=== PATIENT | male | born 1930 | race Caucasian/White ===

== ENCOUNTER 2016-09-21 10:42 | Inpatient (IN) | payer OTHER, BC ==
[2016-09-21] VITALS (16 sets, daily range): BP systolic 83–139; BP diastolic 49–97; PULSE 65–90; TEMP 36.2–36.8; O2SAT 94–100; Ht 180.3 cm; Wt 86.0 kg
[~2016-09-21] VITALS: Ht 180.3 cm; Wt 86.0 kg
[~2016-09-21 10:42] MED LIST changes: -ATOR-24 PO; -BCTCR/30 EXT; -CETI10TA10 PO; -CETI10TA84 PO; -CLC100X PO; -DEXTSYP27 PO; -DOCU-94 PO; -ECHI400C11 PO; -FERR1TAB13 PO; -FLM4 PO; -FLUT0.15 NAE; -FRRS300 PO; -FURO-85 PO; -Fibersource 1.2 Cal PEG; -GUAI600T33 PO; -HYDR2.5C37 TOP; -HYDR25SU20 PR; -HYDRAER4 EXT; -LEVE500T13 PO; -LEVO1TAB35 PO; -LVNIS80 SQ; -MAGN400T6 PO; -MECL1TAB42 PO; -MELA1TAB5 PO; -METO25TA3 PO; -MGNO400 PO; -ONDA4TAB46 PO; -PANT40TA PO; -PRT40 PO; -RANI150T3 PO; -RIVA1.5T PO; -TPRSR25 PO; -VNTHFA/IN INH; -WHEAPOW PO; -XRL20 PO
[2016-09-21] MEDS ORDERED: CETI10TA84 PO (11:11)
[2016-09-21] MEDS ORDERED: VNTHFA/IN INH (11:11)
[2016-09-21 12:07] LABS: URINE APPEARANCE CLEAR (CLEAR); URINE BILIRUBIN NEG (NEG); URINE COLOR YELLOW; URINE NITRITE NEG (NEG); URINE PH 5.5 (4.5-7.5); URINE SPECIFIC GRAVITY 1.016 (1.000-1.030); UROBILINOGEN NEG (NEG)
[2016-09-21 12:11] LABS: MANUAL MICROSCOPIC REQUIRED? NO; REVIEW REQ? NO
[2016-09-21 12:22] LABS: INR 1.6 (0.9-1.1); PARTIAL THROMBOPLASTIN RATIO 1.1; PROTHROMBIN TIME (PATIENT) 17.9 SECONDS (9.0-12.0)
[2016-09-21 12:23] LABS: HEMATOCRIT 19.4 % (42-52); MEAN CELL VOLUME 72.4 fL (80-100); MEAN CORPUSCULAR HGB CONC 30.4 g/dl (32-36); MEAN PLATELET VOLUME 8.8 fL (7.4-10.4); PLATELET COUNT 140 K/uL (130-400); RED BLOOD COUNT 2.68 M/uL (4.7-6.1); WHITE BLOOD COUNT 3.14 K/uL (4.8-10.8)
[2016-09-21 12:24] LABS: BUN/CREATININE RATIO 16.8 (10-20); CALCIUM 7.8 mg/dl (8.5-10.1); CREATININE 0.94 mg/dl (0.60-1.40)
[2016-09-21 12:34] LABS: ACANTHOCYTES 2+; BASO % 0.3 %; BASO ABS # 0.01 K/uL (0-0.2); COMPLETE YES; EOS % 1.6 %; HYPOCHROMIA PRESENT; IG% 0.3 %; LARGE PLATELETS 2+; LYMPH % 15.9 %; MONO % 12.1 %; NEUT % 69.8 %; OVALOCYTES 1+
[2016-09-21 12:35] LABS: THYROID STIMULATING HORMONE 1.08 uIu/ml (0.300-4.500)
[2016-09-21] MEDS ORDERED: ACETAMINOPHEN 325 MG TAB PO PRN (14:00)
[2016-09-21] MEDS ORDERED: ONDANSETRON INJ 2 MG/ML 2 ML VIAL IV PRN (14:00)
--- NOTE | 2016-09-21 14:04 | History and Physical ---
History & Physical Date & Time of Service: Sep 21, 2016 at 13:45 Chief Complaint: Fatigue Primary Care Physician: Tania Kowalski History of Present Illness Source: patient, clinic records, hospital records This patient is an 86-year-old male that presents emergency department from [facility] with reports of anemia. The patient had his blood drawn earlier today that showed a hemoglobin of 6.0. The patient does admit to feeling fatigued and somewhat lightheaded upon standing over the last 3 days. He denies any chest pain or pressure. No shortness of breath. He denies any blood in his stool or dark stools, however he admits to not really looking. The patient does take Xarelto for a reported history of TIA. When reviewing outpatient records, he does have a history of atrial fibrillation. He also has a pacemaker. The patient otherwise reports feeling well recently. He denies any nausea or vomiting. No diarrhea. No abdominal pain. Denies any fever or chills. No cough or runny nose. 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) Multi-Drug Resistant Organisms History of MDRO: No Allergies Coded Allergies: No Known Allergies (Verified , 09/21/16) Home Medications Scheduled Albuterol Hfa (Ventolin Hfa), 2 PUFFS INH QID Atorvastatin (Lipitor), 40 MG PO QPM Cetirizine (Zyrtec), 10 MG PO QPM Finasteride (Proscar), 5 MG PO QPM Lisinopril (Zestril), 2.5 MG PO QAM Omeprazole (Prilosec), 20 MG PO QAM Rivaroxaban (Xarelto), 20 MG PO QPM Review of Systems 10 system review performed and negative unless noted in HPI or below Physical Exam Vital Signs Date Time Temp Pulse Resp B/P Pulse Ox O2 Delivery O2 Flow Rate FiO2 09/21/16 12:38 63 18 122/67 97 Room Air 09/21/16 12:05 63 09/21/16 11:57 97 Room Air 09/21/16 11:29 67 18 121/76 97 Room Air 09/21/16 10:46 36.3 64 22 131/80 99 Room Air General Appearance: no apparent distress Head: normocephalic Eyes: EOMI ENT: + pertinent finding (oral mucosa moist. No exudate.) Neck: no JVD Respiratory/Chest: lungs clear Cardiovascular: regular rate, rhythm Abdomen/GI: normal bowel sounds, non tender, soft Extremities/Musculoskelatal: + pertinent finding (+1 pitting edema in the lower extremities left greater than right. No erythema or tenderness appreciated.) Neurologic/Psych: no motor/sensory deficits, oriented x 3 Skin: warm/dry Diagnostics Laboratory Results 09/21/16 11:55 Red Blood Count 2.68, Mean Corpuscular Volume 72.4, Mean Corpuscular Hemoglobin 22.0, Mean Corpuscular Hemoglobin Concent 30.4, Mean Platelet Volume 8.8, Neutrophils (%) (Auto) 69.8, Lymphocytes (%) (Auto) 15.9, Monocytes (%) (Auto) 12.1, Eosinophils (%) (Auto) 1.6, Basophils (%) (Auto) 0.3, Neutrophils # (Auto ) 2.19, Lymphocytes # (Auto) 0.50, Monocytes # (Auto) 0.38, Eosinophils # (Auto ) 0.05, Basophils # (Auto) 0.01 09/21/16 11:55 Test 09/21/16 11:50 09/21/16 11:55 Urine Color YELLOW Urine Appearance CLEAR (CLEAR) Urine pH 5.5 (4.5-7.5) Urine Specific [place] 1.016 (1.000-1.030) Urine Protein NEG (NEG) Urine Glucose (UA) NEG (NEG) Urine Ketones NEG (NEG) Urine Occult Blood NEG (NEG) Urine Nitrite NEG (NEG) Urine Bilirubin NEG (NEG) Urine Urobilinogen NEG (NEG) Urine Leukocyte Esterase NEG (NEG) White Blood Count 3.14 K/uL (4.8-10.8) Red Blood Count 2.68 M/uL (4.7-6.1) Hemoglobin 5.9 g/dL (14.0-18.0) Hematocrit 19.4 % (42-52) Mean Corpuscular Volume 72.4 fL (80-100) Mean Corpuscular Hemoglobin 22.0 pg (25-34) Mean Corpuscular Hemoglobin Concent 30.4 g/dl (32-36) Platelet Count 140 K/uL (130-400) Mean Platelet Volume 8.8 fL (7.4-10.4) Neutrophils (%) (Auto) 69.8 % Lymphocytes (%) (Auto) 15.9 % Monocytes (%) (Auto) 12.1 % Eosinophils (%) (Auto) 1.6 % Basophils (%) (Auto) 0.3 % Neutrophils # (Auto) 2.19 K/uL (1.4-6.5) Lymphocytes # (Auto) 0.50 K/uL (1.2-3.4) Monocytes # (Auto) 0.38 K/uL (0.11-0.59) Eosinophils # (Auto) 0.05 K/uL (0-0.5) Basophils # (Auto) 0.01 K/uL (0-0.2) RDW Standard Deviation 47.7 fL (36.4-46.3) RDW Coefficient of Variation 17.9 % (11.5-14.5) Immature Granulocyte % (Auto) 0.3 % Immature Granulocyte # (Auto) 0.01 K/uL (0.00-0.02) Nucleated RBC Absolute Count (auto) 0.02 K/uL (0-0) Nucleated Red Blood Cells % 0.7 % Large Platelets 2+ Hypochromasia PRESENT Ovalocytes 1+ Acanthocytes 2+ Prothrombin Time 17.9 SECONDS (9.0-12.0) Prothromb Time International Ratio 1.6 (0.9-1.1) Activated Partial Thromboplast Time 29.7 SECONDS (21.0-31.0) Partial Thromboplastin Ratio 1.1 Anion Gap 7.0 mmol/L (3-11) Est Creatinine Clear Calc Drug Dose 60.1 ml/min Estimated GFR () 84.7 Estimated GFR (Non- 73.1 BUN/Creatinine Ratio 16.8 (10-20) Calcium Level 7.8 mg/dl (8.5-10.1) Magnesium Level 2.0 mg/dl (1.8-2.4) Total Bilirubin 0.8 mg/dl (0.2-1) Direct Bilirubin 0.4 mg/dl (0-0.2) Aspartate Amino Transf (AST/SGOT) 42 U/L (15-37) Alanine Aminotransferase (ALT/SGPT) 40 U/L (12-78) Alkaline Phosphatase 106 U/L (45-117) Total Protein 5.9 gm/dl (6.4-8.2) Albumin 3.3 gm/dl (3.4-5.0) Lipase 138 U/L (73-393) Thyroid Stimulating Hormone (TSH) 1.080 uIu/ml (0.300-4.500) Results Past 24 Hours Test 09/21/16 11:50 09/21/16 11:55 Range/Units Urine Color YELLOW Urine Appearance CLEAR CLEAR Urine pH 5.5 4.5-7.5 Urine Specific [place] 1.016 1.000-1.030 Urine Protein NEG NEG Urine Glucose (UA) NEG NEG Urine Ketones NEG NEG Urine Occult Blood NEG NEG Urine Nitrite NEG NEG Urine Bilirubin NEG NEG Urine Urobilinogen NEG NEG Urine Leukocyte Esterase NEG NEG White Blood Count 3.14 4.8-10.8 K/uL Red Blood Count 2.68 4.7-6.1 M/uL Hemoglobin 5.9 14.0-18.0 g/dL Hematocrit 19.4 42-52 % Mean Corpuscular Volume 72.4 80-100 fL Mean Corpuscular Hemoglobin 22.0 25-34 pg Mean Corpuscular Hemoglobin Concent 30.4 32-36 g/dl Platelet Count 140 130-400 K/uL Mean Platelet Volume 8.8 7.4-10.4 fL Neutrophils (%) (Auto) 69.8 % Lymphocytes (%) (Auto) 15.9 % Monocytes (%) (Auto) 12.1 % Eosinophils (%) (Auto) 1.6 % Basophils (%) (Auto) 0.3 % Neutrophils # (Auto) 2.19 1.4-6.5 K/uL Lymphocytes # (Auto) 0.50 1.2-3.4 K/uL Monocytes # (Auto) 0.38 0.11-0.59 K/uL Eosinophils # (Auto) 0.05 0-0.5 K/uL Basophils # (Auto) 0.01 0-0.2 K/uL RDW Standard Deviation 47.7 36.4-46.3 fL RDW Coefficient of Variation 17.9 11.5-14.5 % Immature Granulocyte % (Auto) 0.3 % Immature Granulocyte # (Auto) 0.01 0.00-0.02 K/uL Nucleated RBC Absolute Count (auto) 0.02 0-0 K/uL Nucleated Red Blood Cells % 0.7 % Large Platelets 2+ Hypochromasia PRESENT Ovalocytes 1+ Acanthocytes 2+ Prothrombin Time 17.9 9.0-12.0 SECONDS Prothromb Time International Ratio 1.6 0.9-1.1 Activated Partial Thromboplast Time 29.7 21.0-31.0 SECONDS Partial Thromboplastin Ratio 1.1 Sodium Level 138 136-145 mmol/L Potassium Level 4.0 3.5-5.1 mmol/L Chloride Level 105 98-107 mmol/L Carbon Dioxide Level 26 21-32 mmol/L Anion Gap 7.0 3-11 mmol/L Blood Urea Nitrogen 16 7-18 mg/dl Creatinine 0.94 0.60-1.40 mg/dl Est Creatinine Clear Calc Drug Dose 60.1 ml/min Estimated GFR () 84.7 Estimated GFR (Non- 73.1 BUN/Creatinine Ratio 16.8 10-20 Random Glucose 107 70-99 mg/dl Calcium Level 7.8 8.5-10.1 mg/dl Magnesium Level 2.0 1.8-2.4 mg/dl Total Bilirubin 0.8 0.2-1 mg/dl Direct Bilirubin 0.4 0-0.2 mg/dl Aspartate Amino Transf (AST/SGOT) 42 15-37 U/L Alanine Aminotransferase (ALT/SGPT) 40 12-78 U/L Alkaline Phosphatase 106 45-117 U/L Total Protein 5.9 6.4-8.2 gm/dl Albumin 3.3 3.4-5.0 gm/dl Lipase 138 73-393 U/L Thyroid Stimulating Hormone (TSH) 1.080 0.300-4.500 uIu/ml Microbiology Results 09/21/16 Urine Culture, Received Pending EKG Ventricular paced rhythm 69 bpm Impression Assessment and Plan 86-year-old male sent to the emergency department with profound anemia from [facility]. No overt signs of GI bleeding Profound anemia -Admit to telemetry -Transfuse 3 units now. One additional unit is on hold. -Administer Lasix 20 mg IV in between the second and third unit -Consent is on the chart -Repeat fecal occult blood test -Hold Xarelto for now -Iron studies -GI consult -Clear liquid diet -NPO after midnight in case of a procedure history of A. fib according to outpatient records -Continue Toprol-XL 25 mg daily -Xarelto on hold as noted above. Home dose is 20 mg at night SS syndrome-s/p pacemaker-noted History of GERD/dysphagia status post dilation -Pantoprazole 40 mg daily while in house. May continue omeprazole 20 mg daily when discharged Hypertension -Continue lisinopril 2.5 mg daily Hyperlipidemia -Continue Lipitor 40 mg daily DVT prophylaxis -Chemical means contraindicated secondary to profound anemia -TEDS, SCDs CODE STATUS -LEVEL V DO NO RESUSCITATE This chart was completed in part utilizing [employer] Speech Voice Recognition software. Attempts were made to minimize the grammatical errors, random word insertions, pronoun errors and incomplete sentences. Any formal questions or concerns about the content, text or information contained within the body of this dictation should be directly addressed to the provider for clarification. Level of Care Telemetry Resuscitation Status FULL RESUSCITATION VTE Prophylaxis VTE Risk Assessment Done? Y/N: Yes Risk Level: Low Given or contraindicated: T.E.D. Stockings, SCD's, Contraindicated
[2016-09-21 15:04] LABS: FERRITIN 5.4 ng/ml (8.0-388.0)
--- NOTE | 2016-09-21 15:06 | EMERGENCY ROOM VISIT NOTE ---
History Report prepared by Ruby: Vlad Mcknight Under the Supervision of: Dr. Naveed Nolasco M.D. First contact with patient: 11:32 Chief Complaint: ABNORMAL LABS Stated Complaint: FATIGUE History of Present Illness The patient is an 86 year old male who presents to the Emergency Room with complaints increased fatigue over the past several months. The patient also notes increased generalized weakness. His notes that he has been sleeping more lately. The patient had routine blood work at [facility] today, and was found to have a hemoglobin of 6.1. The patient has been anemic before but never to this extent. He has never required a transfusion. The patient denies any sources of bleeding, including black or blood stools or hematuria. He also denies exertional lightheadedness or chest pain. He is on Xarelto for past TIA. His last colonoscopy was years ago which was normal. The patient also complains of left eye pain that "feels like it is going to pop out." The patient denies visual changes or ocular discharge. He has a history of hypertension. Patient denies LOC, headache, fevers, chills, diaphoresis, neck pain, chest pain, breathing difficulties, nausea, vomiting, abdominal pain, back pain, urinary symptoms, numbness, lymphadenopathy, rash, or other complaints. Source of History: patient, spouse/significant other Onset: several months Position: other (global) Quality: other (fatigue) Timing: other (increased) Associated Symptoms: + weakness Review of Systems See HPI for pertinent positives and negatives. A total of ten systems were reviewed and were otherwise negative. Past Medical & Surgical Medical Problems: (1) Acute bronchitis (2) Anemia (3) Arm paresthesia, right (4) Arm paresthesia, right (5) GERD (gastroesophageal reflux disease) (6) HTN (hypertension) (7) Hyperlipidemia (8) URI (upper respiratory infection) Surgical Problems: (1) H/O hernia repair Family History GI malignancy Social History Smoking Status: Never Smoker Alcohol Use: none Drug Use: none Marital Status: Occupation Status: retired Current/Historical Medications Scheduled Albuterol Hfa (Ventolin Hfa), 2 PUFFS INH QID Atorvastatin (Lipitor), 40 MG PO QPM Cetirizine (Zyrtec), 10 MG PO QPM Finasteride (Proscar), 5 MG PO QPM Lisinopril (Zestril), 2.5 MG PO QAM Omeprazole (Prilosec), 20 MG PO QAM Rivaroxaban (Xarelto), 20 MG PO QPM Allergies Coded Allergies: No Known Allergies (Verified , 09/21/16) Physical Exam Vital Signs Date Time Temp Pulse Resp B/P Pulse Ox O2 Delivery O2 Flow Rate FiO2 09/21/16 14:59 36.6 74 18 133/90 100 09/21/16 14:38 36.7 71 15 133/80 99 09/21/16 14:14 36.8 67 19 124/78 94 09/21/16 14:12 66 09/21/16 13:54 36.5 69 16 130/69 100 09/21/16 13:46 36.5 65 16 132/78 97 09/21/16 13:41 36.5 69 16 133/97 97 09/21/16 13:36 36.5 63 16 133/97 97 Room Air 09/21/16 12:38 63 18 122/67 97 Room Air 09/21/16 12:05 63 09/21/16 11:57 97 Room Air 09/21/16 11:29 67 18 121/76 97 Room Air 09/21/16 10:46 36.3 64 22 131/80 99 Room Air Physical Exam GENERAL: Awake, alert, tired-appearing, in no distress HENT: Normocephalic, atraumatic. Oropharynx unremarkable. EYES: Pale conjunctiva. Sclera non-icteric. NECK: Supple. No nuchal rigidity. FROM. No JVD. RESPIRATORY: Clear to auscultation. CARDIAC: Regular rate, normal rhythm. Extremities warm and well perfused. Pulses equal. ABDOMEN: Soft, non-distended. No tenderness to palpation. No rebound or guarding. No masses. RECTAL: Deferred. MUSCULOSKELETAL: Chest examination reveals no tenderness. The back is symmetrical on inspection without obvious abnormality. There is no CVA tenderness to palpation. No joint edema. LOWER EXTREMITIES: 1+ lower extremity edema. Calves are equal size bilaterally and non-tender. No discoloration. NEURO: Normal sensorium. No sensory or motor deficits noted. SKIN: No rash or jaundice noted. RECTAL: Heme negative. Medical Decision & Procedures Laboratory Results 09/21/16 11:55 Red Blood Count 2.68, Mean Corpuscular Volume 72.4, Mean Corpuscular Hemoglobin 22.0, Mean Corpuscular Hemoglobin Concent 30.4, Mean Platelet Volume 8.8, Neutrophils (%) (Auto) 69.8, Lymphocytes (%) (Auto) 15.9, Monocytes (%) (Auto) 12.1, Eosinophils (%) (Auto) 1.6, Basophils (%) (Auto) 0.3, Neutrophils # (Auto ) 2.19, Lymphocytes # (Auto) 0.50, Monocytes # (Auto) 0.38, Eosinophils # (Auto ) 0.05, Basophils # (Auto) 0.01 09/21/16 11:55 Test 09/21/16 11:50 09/21/16 11:55 09/21/16 14:45 Urine Color YELLOW Urine Appearance CLEAR (CLEAR) Urine pH 5.5 (4.5-7.5) Urine Specific [place] 1.016 (1.000-1.030) Urine Protein NEG (NEG) Urine Glucose (UA) NEG (NEG) Urine Ketones NEG (NEG) Urine Occult Blood NEG (NEG) Urine Nitrite NEG (NEG) Urine Bilirubin NEG (NEG) Urine Urobilinogen NEG (NEG) Urine Leukocyte Esterase NEG (NEG) White Blood Count 3.14 K/uL (4.8-10.8) Red Blood Count 2.68 M/uL (4.7-6.1) Hemoglobin 5.9 g/dL (14.0-18.0) Hematocrit 19.4 % (42-52) Mean Corpuscular Volume 72.4 fL (80-100) Mean Corpuscular Hemoglobin 22.0 pg (25-34) Mean Corpuscular Hemoglobin Concent 30.4 g/dl (32-36) Platelet Count 140 K/uL (130-400) Mean Platelet Volume 8.8 fL (7.4-10.4) Neutrophils (%) (Auto) 69.8 % Lymphocytes (%) (Auto) 15.9 % Monocytes (%) (Auto) 12.1 % Eosinophils (%) (Auto) 1.6 % Basophils (%) (Auto) 0.3 % Neutrophils # (Auto) 2.19 K/uL (1.4-6.5) Lymphocytes # (Auto) 0.50 K/uL (1.2-3.4) Monocytes # (Auto) 0.38 K/uL (0.11-0.59) Eosinophils # (Auto) 0.05 K/uL (0-0.5) Basophils # (Auto) 0.01 K/uL (0-0.2) RDW Standard Deviation 47.7 fL (36.4-46.3) RDW Coefficient of Variation 17.9 % (11.5-14.5) Immature Granulocyte % (Auto) 0.3 % Immature Granulocyte # (Auto) 0.01 K/uL (0.00-0.02) Nucleated RBC Absolute Count (auto) 0.02 K/uL (0-0) Nucleated Red Blood Cells % 0.7 % Large Platelets 2+ Hypochromasia PRESENT Ovalocytes 1+ Acanthocytes 2+ Prothrombin Time 17.9 SECONDS (9.0-12.0) Prothromb Time International Ratio 1.6 (0.9-1.1) Activated Partial Thromboplast Time 29.7 SECONDS (21.0-31.0) Partial Thromboplastin Ratio 1.1 Anion Gap 7.0 mmol/L (3-11) Est Creatinine Clear Calc Drug Dose 60.1 ml/min Estimated GFR () 84.7 Estimated GFR (Non- 73.1 BUN/Creatinine Ratio 16.8 (10-20) Calcium Level 7.8 mg/dl (8.5-10.1) Magnesium Level 2.0 mg/dl (1.8-2.4) Iron Level 16 mcg/dl (35-175) Total Iron Binding Capacity 412 mcg/dl (250-450) Ferritin 5.4 ng/ml (8.0-388.0) Total Bilirubin 0.8 mg/dl (0.2-1) Direct Bilirubin 0.4 mg/dl (0-0.2) Aspartate Amino Transf (AST/SGOT) 42 U/L (15-37) Alanine Aminotransferase (ALT/SGPT) 40 U/L (12-78) Alkaline Phosphatase 106 U/L (45-117) Total Protein 5.9 gm/dl (6.4-8.2) Albumin 3.3 gm/dl (3.4-5.0) Lipase 138 U/L (73-393) Thyroid Stimulating Hormone (TSH) 1.080 uIu/ml (0.300-4.500) Laboratory results reviewed by me ECG Indication: weakness Rate (beats per minute): 69 Rhythm: other (paced rhythm) Findings: no acute ischemic change, no ectopy ED Course 1135: The patient was evaluated by my medical student. 1210: The patient was evaluated in room C11b. A complete history and physical exam was performed. 1230: The case with discussed with Dr. Cloud, [facility]. The patient will be evaluated. Medical Decision Triage Nursing notes reviewed. The patient's presentation and history were concerning for weakness and possible anemia. Etiologies such as symptomatic anemia, metabolic, infection, hypo/hyperglycemia , electrolyte abnormalities, cardiac sources, intracerebral event, toxicologic, neurologic, as well as others were entertained. The patient was evaluated. He was pale and examination. Rectal examination was heme-negative. He is on xarelto . Blood work was obtained. The patient has unremarkable elevations of his LFTs. His urinalysis is unremarkable. His CBC was very concerning for severe anemia. The patient was consented for packed red blood cell transfusion. This was ordered for 4 units. First unit was started in the emergency department. The patient had consultation made with internal medicine. The patient was evaluated and admitted for further treatment. The chart was completed utilizing [employer] Speech voice recognition software. Grammatical errors, random word insertions, pronoun errors, and incomplete sentences are an occasional consequence of this system due to software limitations, ambient noise, and hardware issues. Any formal questions or concerns about the content, text, or information contained within the body of this dictation should be directly addressed to the physician for clarification. Consults Time Called: 1220 Consulting Physician: Dr. Cloud, [facility]. Returned Call: 1230 1230: The case with discussed with Dr. Cloud, [facility]. The patient will be evaluated. Impression Primary Impression: Severe anemia Scribe Attestation The scribe's documentation has been prepared under my direction and personally reviewed by me in its entirety. I confirm that the note above accurately reflects all work, treatment, procedures, and medical decision making performed by me. Departure Information Dispostion Being Evaluated By Hospitalist Referrals Tania Kowalski (PCP) Patient Instructions My [facility]
[2016-09-21] MEDS ORDERED: FUROSEMIDE INJ 20 MG in SYRINGE 0 ML IV SCH (17:00)
[2016-09-21] MEDS ORDERED: NURSING VERBAL MED ORDER ONE (18:15)
[2016-09-21] MEDS: ALBUT/IPRATROP 3MG/0.5MG NEB 3 ML VIAL INH SCH (19:10)
--- NOTE | 2016-09-21 19:35 | GASTROINTESTINAL CONSULTATION ---
DATE OF CONSULTATION: 09/21/2016 RACE: . ATTENDING PHYSICIAN: Dr. Jenkins. CONSULTING PHYSICIAN: Dr. Jefferson. REASON FOR CONSULTATION: Anemia. HISTORY OF PRESENT ILLNESS: Rosales Butts is an 86-year-old male presented to the Department of Emergency Medicine after he was found to have a hemoglobin of 6 on routine outpatient testing. He most recently had blood work in February of 2016, which showed an H\T\H of 11.2 and 33.0, though I do not have any testing in between other than laboratory testing when he presented to the ER today, which was noted to be 5.9 and 19.4. He is on Xarelto therapy for atrial fibrillation and a PT and INR were 17.9 and 1.6 today. His liver panel was unremarkable and his creatinine was noted to be 0.94. The patient in the ER denied any melena, hematochezia, hematemesis or hematuria. He did not have any lightheadedness or dizziness either. I was subsequently given 2 units of packed red blood cells in transfusion and placed in a second floor ICU, at which time I saw the patient. He stated that he was feeling much better than when he arrived. He denied any overt GI bleeding. He denied any abdominal symptoms whatsoever and states that he is not interested in undergoing any invasive testing such as an EGD or colonoscopy. His most recent EGD was performed on 10/05/2015, at which time he was noted to have a Schatzki's ring, which was dilated to 20 mm and a moderate sized hiatal hernia. The patient's most recent colonoscopy was approximately 10 years ago and the patient states it was normal. He denies any further complaints. PAST MEDICAL HISTORY: Includes atrial fibrillation on chronic anticoagulation with Xarelto therapy, history of Schatzki's ring status post dilation, hypertension, TIA, and hyperlipidemia. PAST SURGICAL HISTORY: Includes hernia repair as well as a pacemaker placement. ALLERGIES: None. MEDICATIONS: At present include Protonix 40 mg p.o. q.a.m., Zestril 2.5 mg p.o. q.a.m., Lipitor 40 mg p.o. q.p.m., Zyrtec 10 mg p.o. q.p.m., Proscar 5 mg p.o. q.p.m., Tylenol 650 mg p.o. q. 4 hours p.r.n. pain or fever, and Zofran 4 mg IV q. 6 hours p.r.n. nausea. SOCIAL HISTORY: Lives at [facility]. No tobacco, alcohol or illicit drug use. FAMILY HISTORY: Negative for GI malignancy or inflammatory bowel disease. REVIEW OF SYSTEMS: Negative 10 system review other than pertinent positives listed in the HPI. PHYSICAL EXAMINATION: VITAL SIGNS: Temp is 36.3, pulse 69, respirations 14, blood pressure 139/88, and pulse ox 95% on room air. GENERAL: He is awake, cooperative, chronic ill appearing, in no acute distress. HEAD: Normocephalic and atraumatic. EYES: Pupils equally round. Extraocular muscles are intact. ENT: External evaluation of ears and nose are normal. NECK: Soft and supple. CHEST: Decreased breath sounds at bilateral bases. CARDIOVASCULAR SYSTEM: Regular rate and rhythm. ABDOMEN: Soft, nontender, and nondistended. Positive bowel sounds. There is no hepatosplenomegaly or stigmata of chronic liver disease. EXTREMITIES: No clubbing, cyanosis, or edema. LABORATORY STUDIES: Reviewed in the HPI. IMPRESSION: An 86-year-old male with profound anemia on admission without any overt GI blood loss. PLAN: The patient currently is having no overt GI bleeding and states that he is not interested in undergoing any invasive workup to find out the cause of his anemia. He is refusing both EGD and colonoscopy at present. I would recommend continuing the patient on Protonix 40 mg p.o. q.a.m. I would continue supportive care and transfuse as needed to maintain his H\T\H in the range of hemoglobin of 8-9. I will follow his clinical course and make further recommendations. Once again, thanks for allowing me to participate in the care of this patient. If you have any further questions.
[2016-09-21] MEDS: FINASTERIDE 5 MG TAB PO SCH (20:00)
[2016-09-21] MEDS: CETIRIZINE HCL 10 MG TAB PO SCH (20:00)
[2016-09-21] MEDS: ATORVASTATIN 40 MG TAB PO SCH (20:00)
[2016-09-22] VITALS (16 sets, daily range): BP systolic 105–140; BP diastolic 52–94; PULSE 60–80; TEMP 36.4–36.9; O2SAT 93–98
[2016-09-22 01:34] LABS: HEMATOCRIT 24.4 % (42-52)
[2016-09-22] MEDS: ALBUT/IPRATROP 3MG/0.5MG NEB 3 ML VIAL INH SCH ×4 (02:53→19:09)
[2016-09-22] MEDS: PANTOprazole SOD 40 MG TAB PO SCH (07:43)
[2016-09-22] MEDS: LISINOPRIL 2.5 MG TAB PO SCH (07:43)
[2016-09-22 09:09] LABS: BASO % 0.7 %; BASO ABS # 0.02 K/uL (0-0.2); HEMATOCRIT 25.3 % (42-52); LYMPH % 12.7 %; LYMPH ABS # 0.39 K/uL (1.2-3.4); MEAN CELL VOLUME 72.5 fL (80-100); MEAN CORPUSCULAR HEMOGLOBIN 23.5 pg (25-34); MEAN CORPUSCULAR HGB CONC 32.4 g/dl (32-36); MEAN PLATELET VOLUME 8.9 fL (7.4-10.4); MONO % 10.1 %; NEUT % 75.5 %; PLATELET COUNT 124 K/uL (130-400); RED BLOOD COUNT 3.49 M/uL (4.7-6.1); WHITE BLOOD COUNT 3.06 K/uL (4.8-10.8)
[2016-09-22 09:35] LABS: BUN/CREATININE RATIO 14.8 (10-20); CALCIUM 8.5 mg/dl (8.5-10.1); CREATININE 0.94 mg/dl (0.60-1.40); MAGNESIUM 1.6 mg/dl (1.8-2.4); POTASSIUM 3.6 mmol/L (3.5-5.1)
[2016-09-22 10:30] LABS: ACANTHOCYTES 1+; COMPLETE YES; GIANT PLATELETS 1+; POLYCHROMASIA 1+
--- NOTE | 2016-09-22 11:53 | Hospitalist Progress Note ---
Hospitalist Progress Note Date of Service Sep 22, 2016. Subjective Pt evaluation today including: conversation w/ patient, physical exam, chart review, lab review, review of studies, review of inpatient medication list Voiding: no voiding problems, no incontinence Patient states he is feeling well. NPO pending GI consultation today- yesterday he deferred EGD/colonoscopy; today patient states he is reconsidering it. Patient admits to dark stools, but states he "hasn't paid much attention to his stools, they've always been darker." No BMs since admission. Patient denies any fever, chills, sweats, lightheadedness, dizziness, vision changes, CP, palpitations, edema, SOB, wheezing, cough, abdominal pain, nausea, vomiting, diarrhea, urinary symptoms, melena, numbness/tingling, weakness, muscle/joint pain, anxiety/depression, obvious active bleeding, or new skin discoloration/ changes. Medications Current Inpatient Medications Medications (Trade) Dose Ordered Sig/Tanesha Route Start Time Stop Time Status Last Admin Dose Admin Pantoprazole Sodium (Protonix Tab) 40 mg QAM PO 09/22/16 09:00 10/22/16 08:59 09/22/16 07:43 40 MG Acetaminophen (Tylenol Tab) 650 mg Q4H PRN PO 09/21/16 14:00 10/21/16 13:59 Ondansetron HCl (Zofran Inj) 4 mg Q6H PRN IV 09/21/16 14:00 10/21/16 13:59 Atorvastatin Calcium (Lipitor Tab) 40 mg QPM PO 09/21/16 21:00 10/21/16 20:59 09/21/16 20:00 40 MG Cetirizine HCl (zyrTEC TAB) 10 mg QPM PO 09/21/16 21:00 10/21/16 20:59 09/21/16 20:00 10 MG Finasteride (Proscar Tab) 5 mg QPM PO 09/21/16 21:00 10/21/16 20:59 09/21/16 20:00 5 MG Lisinopril (Zestril Tab) 2.5 mg QAM PO 09/22/16 09:00 10/22/16 08:59 09/22/16 07:43 2.5 MG Albuterol/ Ipratropium (Duoneb) 3 ml Q6R INH 09/21/16 21:00 10/21/16 20:59 09/22/16 07:10 3 ML Objective Vital Signs Date Time Temp Pulse Resp B/P Pulse Ox O2 Delivery O2 Flow Rate FiO2 09/22/16 08:00 Room Air 09/22/16 07:51 36.8 64 18 134/58 97 09/22/16 07:10 64 14 98 Room Air 09/22/16 06:10 36.8 62 18 129/72 96 09/22/16 05:10 36.9 71 18 127/74 93 09/22/16 04:10 36.4 78 18 140/76 96 09/22/16 04:00 Room Air 09/22/16 03:40 36.8 69 18 122/74 95 09/22/16 03:18 36.6 66 18 131/84 93 09/22/16 02:53 73 14 97 Room Air 09/22/16 00:14 36.4 71 18 139/94 95 Room Air 09/21/16 23:59 Room Air 09/21/16 21:52 36.4 90 16 128/83 09/21/16 20:59 36.7 72 16 120/70 98 09/21/16 20:20 36.5 74 16 132/79 98 09/21/16 20:11 36.2 72 16 131/73 100 09/21/16 20:00 Room Air 09/21/16 19:14 71 14 98 Room Air 09/21/16 18:08 36.8 73 18 114/61 09/21/16 17:26 36.8 70 16 109/56 09/21/16 17:08 111/49 09/21/16 17:02 36.7 71 18 83/49 100 09/21/16 16:09 36.3 69 14 139/88 95 Room Air 09/21/16 15:17 36.6 74 18 133/90 100 09/21/16 14:59 36.6 74 18 133/90 100 09/21/16 14:38 36.7 71 15 133/80 99 09/21/16 14:14 36.8 67 19 124/78 94 09/21/16 14:12 66 09/21/16 13:54 36.5 69 16 130/69 100 09/21/16 13:46 36.5 65 16 132/78 97 09/21/16 13:41 36.5 69 16 133/97 97 09/21/16 13:36 36.5 63 16 133/97 97 Room Air 09/21/16 12:38 63 18 122/67 97 Room Air 09/21/16 12:05 63 09/21/16 11:57 97 Room Air Physical Exam General Appearance: no apparent distress Eyes: normal inspection, PERRL ENT: hearing grossly normal Neck: supple Respiratory/Chest: lungs clear, no respiratory distress, no accessory muscle use Cardiovascular: regular rate, rhythm Abdomen: normal bowel sounds, non tender, soft Extremities: no calf tenderness, + swelling (+1 pitting edema of left lower extremity ) Neurologic/Psychiatric: alert, normal mood/affect, oriented x 3 Skin: warm/dry, no rash, + pallor Laboratory Results Last 24 Hours Test 09/21/16 11:50 09/21/16 11:55 09/21/16 14:45 09/22/16 01:16 Urine Color YELLOW Urine Appearance CLEAR Urine pH 5.5 Urine Specific [place] 1.016 Urine Protein NEG Urine Glucose (UA) NEG Urine Ketones NEG Urine Occult Blood NEG Urine Nitrite NEG Urine Bilirubin NEG Urine Urobilinogen NEG Urine Leukocyte Esterase NEG White Blood Count 3.14 K/uL Red Blood Count 2.68 M/uL Hemoglobin 5.9 g/dL 7.8 g/dL Hematocrit 19.4 % 24.4 % Mean Corpuscular Volume 72.4 fL Mean Corpuscular Hemoglobin 22.0 pg Mean Corpuscular Hemoglobin Concent 30.4 g/dl Platelet Count 140 K/uL Mean Platelet Volume 8.8 fL Neutrophils (%) (Auto) 69.8 % Lymphocytes (%) (Auto) 15.9 % Monocytes (%) (Auto) 12.1 % Eosinophils (%) (Auto) 1.6 % Basophils (%) (Auto) 0.3 % Neutrophils # (Auto) 2.19 K/uL Lymphocytes # (Auto) 0.50 K/uL Monocytes # (Auto) 0.38 K/uL Eosinophils # (Auto) 0.05 K/uL Basophils # (Auto) 0.01 K/uL RDW Standard Deviation 47.7 fL RDW Coefficient of Variation 17.9 % Immature Granulocyte % (Auto) 0.3 % Immature Granulocyte # (Auto) 0.01 K/uL Nucleated RBC Absolute Count (auto) 0.02 K/uL Nucleated Red Blood Cells % 0.7 % Large Platelets 2+ Hypochromasia PRESENT Ovalocytes 1+ Acanthocytes 2+ Prothrombin Time 17.9 SECONDS Prothromb Time International Ratio 1.6 Activated Partial Thromboplast Time 29.7 SECONDS Partial Thromboplastin Ratio 1.1 Sodium Level 138 mmol/L Potassium Level 4.0 mmol/L Chloride Level 105 mmol/L Carbon Dioxide Level 26 mmol/L Anion Gap 7.0 mmol/L Blood Urea Nitrogen 16 mg/dl Creatinine 0.94 mg/dl Est Creatinine Clear Calc Drug Dose 60.1 ml/min Estimated GFR () 84.7 Estimated GFR (Non- 73.1 BUN/Creatinine Ratio 16.8 Random Glucose 107 mg/dl Calcium Level 7.8 mg/dl Magnesium Level 2.0 mg/dl Iron Level 16 mcg/dl Total Iron Binding Capacity 412 mcg/dl Ferritin 5.4 ng/ml Total Bilirubin 0.8 mg/dl Direct Bilirubin 0.4 mg/dl Aspartate Amino Transf (AST/SGOT) 42 U/L Alanine Aminotransferase (ALT/SGPT) 40 U/L Alkaline Phosphatase 106 U/L Total Protein 5.9 gm/dl Albumin 3.3 gm/dl Lipase 138 U/L Thyroid Stimulating Hormone (TSH) 1.080 uIu/ml Vitamin B12 Level 546 pg/mL Folate > 24.00 ng/mL Test 09/22/16 08:53 White Blood Count 3.06 K/uL Red Blood Count 3.49 M/uL Hemoglobin 8.2 g/dL Hematocrit 25.3 % Mean Corpuscular Volume 72.5 fL Mean Corpuscular Hemoglobin 23.5 pg Mean Corpuscular Hemoglobin Concent 32.4 g/dl Platelet Count 124 K/uL Mean Platelet Volume 8.9 fL Neutrophils (%) (Auto) 75.5 % Lymphocytes (%) (Auto) 12.7 % Monocytes (%) (Auto) 10.1 % Eosinophils (%) (Auto) 1.0 % Basophils (%) (Auto) 0.7 % Neutrophils # (Auto) 2.31 K/uL Lymphocytes # (Auto) 0.39 K/uL Monocytes # (Auto) 0.31 K/uL Eosinophils # (Auto) 0.03 K/uL Basophils # (Auto) 0.02 K/uL RDW Standard Deviation 47.3 fL RDW Coefficient of Variation 17.8 % Immature Granulocyte % (Auto) 0.0 % Immature Granulocyte # (Auto) 0.00 K/uL Giant Platelets 1+ Polychromasia 1+ Acanthocytes 1+ Sodium Level 139 mmol/L Potassium Level 3.6 mmol/L Chloride Level 105 mmol/L Carbon Dioxide Level 23 mmol/L Anion Gap 11.0 mmol/L Blood Urea Nitrogen 14 mg/dl Creatinine 0.94 mg/dl Est Creatinine Clear Calc Drug Dose 60.1 ml/min Estimated GFR () 84.7 Estimated GFR (Non- 73.1 BUN/Creatinine Ratio 14.8 Random Glucose 96 mg/dl Calcium Level 8.5 mg/dl Magnesium Level 1.6 mg/dl Assessment and Plan This patient is an 86-year-old male that presents emergency department from [facility] with reports of anemia. The patient had his blood drawn earlier today that showed a hemoglobin of 6.0. The patient does admit to feeling fatigued and somewhat lightheaded upon standing over the last 3 days. He denies any chest pain or pressure. No shortness of breath. He denies any blood in his stool or dark stools, however he admits to not really looking. The patient does take Xarelto for a reported history of TIA. When reviewing outpatient records, he does have a history of atrial fibrillation. He also has a pacemaker. The patient otherwise reports feeling well recently. He denies any nausea or vomiting. No diarrhea. No abdominal pain. Denies any fever or chills. No cough or runny nose. Anemia w/ hgb of 5.6 at admission, possibly due to Xarelto: - Admit to telemetry for cardiac monitoring - Transfused 3 units on 09/21 and 1 unit on 09/22; administered Lasix 20 mg IV between 2nd and 3rd units - Fecal occult blood test pending - TSH, b12/folate- WNL - B1 pending - Hold Xarelto due to GI bleed - Iron studies- iron 16, TIBC 412, ferritin 5.4 -- begin Ferrous Sulfate 325 mg PO BID on 09/22 - GI consult, appreciate recommendations -- ?EGD/colonoscopy - Clear liquid diet, NPO after midnight in case of a procedure Hypomagnesemia of 1/6 on 09/22: - Replete w/ IV Mag PRN - Follow mag level h/o A. fib: - Continue Toprol-XL 25 mg PO daily - Xarelto held due to GI bleed. Home dose is 20 mg at night SS syndrome s/p pacemaker h/o GERD/dysphagia s/p dilation: Pantoprazole 40 mg PO daily- may resume Omeprazole 20 mg daily when discharged Hypertension: Continue Lisinopril 2.5 mg daily Hyperlipidemia: Continue Lipitor 40 mg daily BPH: Continue Proscar 5 mg daily DVT prophylaxis: - Chemical means contraindicated secondary to profound anemia - TEDS, SCDs Code Status: LEVEL V, DNR Dispo: Resident of [place]. PT/OT evaluations. ancillary services manager consulted
[2016-09-22] MEDS ORDERED: MAGNESIUM SULFATE 1GM / D5W 1 GM in PREMIXED IN D5W 100 ML IV ONE (12:00)
--- NOTE | 2016-09-22 15:27 | Gastroenterology Progress Note ---
Progress Note Date of Service: Sep 22, 2016 Subjective Pt evaluation today including: conversation w/ patient, conversation w/ family , physical exam, chart review, lab review, review of inpatient medication list Patient was seen and evaluated in conjunction with Dr. Jefferson this afternoon. Patient had reported no bowel movement as of the time of visit today. Denies any nausea or vomiting, abdominal pain or overt GIB. Has been placed on PPI therapy and did have a positive response to blood transfusion in regard to his anemia. Review of Systems Constitutional: + fatigue Respiratory: No problem reported Cardiac: No problem reported Abdomen: + see HPI Medications Current Inpatient Medications Medications (Trade) Dose Ordered Sig/Tanesha Route Start Time Stop Time Status Last Admin Dose Admin Pantoprazole Sodium (Protonix Tab) 40 mg QAM PO 09/22/16 09:00 10/22/16 08:59 09/22/16 07:43 40 MG Acetaminophen (Tylenol Tab) 650 mg Q4H PRN PO 09/21/16 14:00 10/21/16 13:59 Ondansetron HCl (Zofran Inj) 4 mg Q6H PRN IV 09/21/16 14:00 10/21/16 13:59 Atorvastatin Calcium (Lipitor Tab) 40 mg QPM PO 09/21/16 21:00 10/21/16 20:59 09/21/16 20:00 40 MG Cetirizine HCl (zyrTEC TAB) 10 mg QPM PO 09/21/16 21:00 10/21/16 20:59 09/21/16 20:00 10 MG Finasteride (Proscar Tab) 5 mg QPM PO 09/21/16 21:00 10/21/16 20:59 09/21/16 20:00 5 MG Lisinopril (Zestril Tab) 2.5 mg QAM PO 09/22/16 09:00 10/22/16 08:59 09/22/16 07:43 2.5 MG Albuterol/ Ipratropium (Duoneb) 3 ml Q6R INH 09/21/16 21:00 10/21/16 20:59 09/22/16 14:37 3 ML Ferrous Sulfate (Feosol Tab) 325 mg BIDM PO 09/22/16 16:45 10/22/16 16:44 Metoprolol Succinate (Toprol Xl Tab) 25 mg QAM PO 09/23/16 09:00 10/23/16 08:59 Objective Vital Signs Date Time Temp Pulse Resp B/P Pulse Ox O2 Delivery O2 Flow Rate FiO2 09/22/16 14:38 65 14 96 Room Air 09/22/16 12:00 Room Air 09/22/16 11:40 36.7 80 18 134/58 97 09/22/16 08:00 Room Air 09/22/16 07:51 36.8 64 18 134/58 97 09/22/16 07:10 64 14 98 Room Air 09/22/16 06:10 36.8 62 18 129/72 96 09/22/16 05:10 36.9 71 18 127/74 93 09/22/16 04:10 36.4 78 18 140/76 96 09/22/16 04:00 Room Air 09/22/16 03:40 36.8 69 18 122/74 95 09/22/16 03:18 36.6 66 18 131/84 93 09/22/16 02:53 73 14 97 Room Air 09/22/16 00:14 36.4 71 18 139/94 95 Room Air 09/21/16 23:59 Room Air 09/21/16 21:52 36.4 90 16 128/83 09/21/16 20:59 36.7 72 16 120/70 98 09/21/16 20:20 36.5 74 16 132/79 98 09/21/16 20:11 36.2 72 16 131/73 100 09/21/16 20:00 Room Air 09/21/16 19:14 71 14 98 Room Air 09/21/16 18:08 36.8 73 18 114/61 09/21/16 17:26 36.8 70 16 109/56 09/21/16 17:08 111/49 09/21/16 17:02 36.7 71 18 83/49 100 09/21/16 16:09 36.3 69 14 139/88 95 Room Air Physical Exam General Appearance: WD/WN, no apparent distress Respiratory/Chest: lungs clear, normal breath sounds, no respiratory distress Cardiovascular: regular rate, rhythm, no gallop, no murmur Abdomen: normal bowel sounds, non tender, soft Extremities: no pedal edema Neurologic/Psych: alert, normal mood/affect, oriented x 3 Skin: warm/dry Laboratory Results Last 24 Hours Test 09/22/16 01:16 09/22/16 08:53 Hemoglobin 7.8 g/dL 8.2 g/dL Hematocrit 24.4 % 25.3 % White Blood Count 3.06 K/uL Red Blood Count 3.49 M/uL Mean Corpuscular Volume 72.5 fL Mean Corpuscular Hemoglobin 23.5 pg Mean Corpuscular Hemoglobin Concent 32.4 g/dl Platelet Count 124 K/uL Mean Platelet Volume 8.9 fL Neutrophils (%) (Auto) 75.5 % Lymphocytes (%) (Auto) 12.7 % Monocytes (%) (Auto) 10.1 % Eosinophils (%) (Auto) 1.0 % Basophils (%) (Auto) 0.7 % Neutrophils # (Auto) 2.31 K/uL Lymphocytes # (Auto) 0.39 K/uL Monocytes # (Auto) 0.31 K/uL Eosinophils # (Auto) 0.03 K/uL Basophils # (Auto) 0.02 K/uL RDW Standard Deviation 47.3 fL RDW Coefficient of Variation 17.8 % Immature Granulocyte % (Auto) 0.0 % Immature Granulocyte # (Auto) 0.00 K/uL Giant Platelets 1+ Polychromasia 1+ Acanthocytes 1+ Sodium Level 139 mmol/L Potassium Level 3.6 mmol/L Chloride Level 105 mmol/L Carbon Dioxide Level 23 mmol/L Anion Gap 11.0 mmol/L Blood Urea Nitrogen 14 mg/dl Creatinine 0.94 mg/dl Est Creatinine Clear Calc Drug Dose 60.1 ml/min Estimated GFR () 84.7 Estimated GFR (Non- 73.1 BUN/Creatinine Ratio 14.8 Random Glucose 96 mg/dl Calcium Level 8.5 mg/dl Magnesium Level 1.6 mg/dl Assessment and Plan Patient is a 86 year-old male admitted with a profound anemia in the absence of overt GIB. 1. Dr. Jefferson discussed the risks vs benefits of invasive GI work up and the patient opted at this time to await fecal occult testing as an initial step. 2. Continue Protonix 40 mg daily. 3. Will continue to follow clinical course. Agree with COBY Mitchell as above Abd: Soft, NT, ND, +BS Patient wants to hold off on EGD at this time Continue current therapy
[2016-09-22] MEDS: FERROUS SULFATE 325 MG TAB PO SCH (15:34)
[2016-09-22] MEDS: FINASTERIDE 5 MG TAB PO SCH (19:00)
[2016-09-22] MEDS: CETIRIZINE HCL 10 MG TAB PO SCH (19:01)
[2016-09-22] MEDS: ATORVASTATIN 40 MG TAB PO SCH (19:01)
[2016-09-22] MEDS: MAGNESIUM OXIDE 400 MG TAB PO SCH (19:14)
[2016-09-23 01:59] VITALS: PULSE 71; O2SAT 98
[2016-09-23] MEDS: ALBUT/IPRATROP 3MG/0.5MG NEB 3 ML VIAL INH SCH ×2 (01:59→07:00)
[2016-09-23 04:07] VITALS: BP 130/95; PULSE 65; TEMP 36.8; O2SAT 94
[2016-09-23 05:40] LABS: BASO % 0.7 %; BASO ABS # 0.02 K/uL (0-0.2); EOS % 4.3 %; HEMATOCRIT 25.6 % (42-52); IG% 0.3 %; LYMPH % 17.5 %; LYMPH ABS # 0.53 K/uL (1.2-3.4); MEAN CELL VOLUME 72.9 fL (80-100); MEAN CORPUSCULAR HEMOGLOBIN 22.8 pg (25-34); MEAN CORPUSCULAR HGB CONC 31.3 g/dl (32-36); MONO % 13.9 %; NEUT % 63.3 %; PLATELET COUNT 120 K/uL (130-400); RED BLOOD COUNT 3.51 M/uL (4.7-6.1); WHITE BLOOD COUNT 3.02 K/uL (4.8-10.8)
[2016-09-23 06:11] LABS: BUN/CREATININE RATIO 14.6 (10-20); CREATININE 0.92 mg/dl (0.60-1.40); MAGNESIUM 1.9 mg/dl (1.8-2.4); POTASSIUM 3.4 mmol/L (3.5-5.1)
[2016-09-23 06:46] LABS: COMPLETE YES; ECHINOCYTES 1+; TEAR DROP CELLS 1+
[2016-09-23 07:00] VITALS: PULSE 77; O2SAT 97
[2016-09-23] MEDS ORDERED: POTASSIUM CHLORIDE 20 MEQ TABCR PO ONE (07:30)
[2016-09-23] MEDS: MAGNESIUM OXIDE 400 MG TAB PO SCH (07:53)
[2016-09-23] MEDS: FERROUS SULFATE 325 MG TAB PO SCH (07:53)
[2016-09-23] MEDS: PANTOprazole SOD 40 MG TAB PO SCH (07:53)
[2016-09-23] MEDS: LISINOPRIL 2.5 MG TAB PO SCH (07:53)
[2016-09-23 07:57] VITALS: BP 122/74; PULSE 81; TEMP 36.7; O2SAT 97
[2016-09-23] MEDS ORDERED: FRRS300 PO (08:36)
[2016-09-23] MEDS ORDERED: MGNO400 PO (08:36)
[2016-09-23] MEDS ORDERED: PRT40 PO (08:36)
[2016-09-23] MEDS ORDERED: TPRSR25 PO (08:36)
--- NOTE | 2016-09-23 08:37 | Discharge Instructions ---
Discharge Instructions Date of Service Sep 23, 2016. Admission Reason for Admission: Anemia Discharge Discharge Diagnosis / Problem: Anemia Discharge Goals Goal(s): Decrease discomfort, Diagnostic testing, Therapeutic intervention, Prevent Disease Progression Activity Recommendations Activity Limitations: resume your previous activity . Current Hospital Diet Patient's current hospital diet: AHA Diet (Heart Healthy) Discharge Diet Recommended Diet: AHA Diet (Heart Healthy) Pending Studies Studies pending at discharge: no Laboratory Results Last 24 Hours Test 09/22/16 08:53 09/23/16 05:24 White Blood Count 3.06 K/uL 3.02 K/uL Red Blood Count 3.49 M/uL 3.51 M/uL Hemoglobin 8.2 g/dL 8.0 g/dL Hematocrit 25.3 % 25.6 % Mean Corpuscular Volume 72.5 fL 72.9 fL Mean Corpuscular Hemoglobin 23.5 pg 22.8 pg Mean Corpuscular Hemoglobin Concent 32.4 g/dl 31.3 g/dl Platelet Count 124 K/uL 120 K/uL Mean Platelet Volume 8.9 fL 9.0 fL Neutrophils (%) (Auto) 75.5 % 63.3 % Lymphocytes (%) (Auto) 12.7 % 17.5 % Monocytes (%) (Auto) 10.1 % 13.9 % Eosinophils (%) (Auto) 1.0 % 4.3 % Basophils (%) (Auto) 0.7 % 0.7 % Neutrophils # (Auto) 2.31 K/uL 1.91 K/uL Lymphocytes # (Auto) 0.39 K/uL 0.53 K/uL Monocytes # (Auto) 0.31 K/uL 0.42 K/uL Eosinophils # (Auto) 0.03 K/uL 0.13 K/uL Basophils # (Auto) 0.02 K/uL 0.02 K/uL RDW Standard Deviation 47.3 fL 48.6 fL RDW Coefficient of Variation 17.8 % 18.2 % Immature Granulocyte % (Auto) 0.0 % 0.3 % Immature Granulocyte # (Auto) 0.00 K/uL 0.01 K/uL Giant Platelets 1+ Polychromasia 1+ Acanthocytes 1+ Sodium Level 139 mmol/L 140 mmol/L Potassium Level 3.6 mmol/L 3.4 mmol/L Chloride Level 105 mmol/L 106 mmol/L Carbon Dioxide Level 23 mmol/L 25 mmol/L Anion Gap 11.0 mmol/L 9.0 mmol/L Blood Urea Nitrogen 14 mg/dl 13 mg/dl Creatinine 0.94 mg/dl 0.92 mg/dl Est Creatinine Clear Calc Drug Dose 60.1 ml/min 61.4 ml/min Estimated GFR () 84.7 87.0 Estimated GFR (Non- 73.1 75.0 BUN/Creatinine Ratio 14.8 14.6 Random Glucose 96 mg/dl 88 mg/dl Calcium Level 8.5 mg/dl 8.0 mg/dl Magnesium Level 1.6 mg/dl 1.9 mg/dl Tear Drop Cells 1+ Echinocytes 1+ Medical Emergencies . Who to Call and When: Medical Emergencies: If at any time you feel your situation is an emergency, please call 911 immediately. . Non-Emergent Contact Non-Emergency issues call your: Primary Care Provider . . "Provider Documentation" section prepared by Reyna Ortez. VTE Core Measure Inpt VTE Proph given/why not?: T.E.D. Stockings, SCD's, Contraindicated
--- NOTE | 2016-09-23 08:48 | Discharge Instructions ---
Discharge Instructions Date of Service Sep 23, 2016. Admission Reason for Admission: Anemia Discharge Discharge Diagnosis / Problem: Anemia Discharge Goals Goal(s): Decrease discomfort, Learn about illness, Diagnostic testing, Therapeutic intervention, Prevent Disease Progression Activity Recommendations Activity Level: Up Ad Haylie . Additional Information Patient informed of condition: Yes Advance Directives: Yes DNR: Yes Level of Care: Skilled Communicable Disease: No Prognosis: Stable Schmitt Catheter: No Instructions / Follow-Up Instructions / Follow-Up New/changed medications: 1. Omeprazole 20 mg daily CHANGED to Protonix 40 mg by mouth once daily 2. Ferrous Sulfate (iron supplement) by mouth twice per day 3. Mag-Ox (magnesium supplement) by mouth once per day 4. HOLD Xarelto We had a long discussion about the risk/benefits of restarting Xarelto. You (and your daughter) both agree that you would like to hold Xarelto until speaking with Dr. Gabriel. Resume all other regular home medications as prescribed to you It is important you monitor your stools for any changes that can be a sign of GI bleeding- changes is stools color (dark) consistency(loose/tarry), frequency , or obvious bright red blood. If you notice any changes in your stools, contact [facility] provider JANN Of note, with starting iron supplement, your stools may become darker. However, it is important you continue to let a medical professional know so they can continue to help monitor your stools as well. At presentation to the ED, you felt very weak and tired, these symptoms can be a sign of a bleed as well. It is important you let a medical provider know when you start to experience these symptoms or any other concerning/new symptoms for yourself. Avoid NSAIDs (ex: Aspirin, Ibuprofen, Motrin, Naproxen), as these can exacerbate a GI bleed Please follow-up with [facility] provider within 24-48 hrs Please follow-up/keep all of your subspecialty appointments Current Hospital Diet Patient's current hospital diet: AHA Diet (Heart Healthy) Discharge Diet Recommended Diet: AHA Diet (Heart Healthy) Pending Studies Studies pending at discharge: no Physician Orders On Transfer Additional Orders: Check CBC in on 09/24 to monitor H&H Check magnesium level within 1 week since hypomagnesemia in hospital/starting magnesium supplement Laboratory Results Last 24 Hours Test 09/22/16 08:53 09/23/16 05:24 White Blood Count 3.06 K/uL 3.02 K/uL Red Blood Count 3.49 M/uL 3.51 M/uL Hemoglobin 8.2 g/dL 8.0 g/dL Hematocrit 25.3 % 25.6 % Mean Corpuscular Volume 72.5 fL 72.9 fL Mean Corpuscular Hemoglobin 23.5 pg 22.8 pg Mean Corpuscular Hemoglobin Concent 32.4 g/dl 31.3 g/dl Platelet Count 124 K/uL 120 K/uL Mean Platelet Volume 8.9 fL 9.0 fL Neutrophils (%) (Auto) 75.5 % 63.3 % Lymphocytes (%) (Auto) 12.7 % 17.5 % Monocytes (%) (Auto) 10.1 % 13.9 % Eosinophils (%) (Auto) 1.0 % 4.3 % Basophils (%) (Auto) 0.7 % 0.7 % Neutrophils # (Auto) 2.31 K/uL 1.91 K/uL Lymphocytes # (Auto) 0.39 K/uL 0.53 K/uL Monocytes # (Auto) 0.31 K/uL 0.42 K/uL Eosinophils # (Auto) 0.03 K/uL 0.13 K/uL Basophils # (Auto) 0.02 K/uL 0.02 K/uL RDW Standard Deviation 47.3 fL 48.6 fL RDW Coefficient of Variation 17.8 % 18.2 % Immature Granulocyte % (Auto) 0.0 % 0.3 % Immature Granulocyte # (Auto) 0.00 K/uL 0.01 K/uL Giant Platelets 1+ Polychromasia 1+ Acanthocytes 1+ Sodium Level 139 mmol/L 140 mmol/L Potassium Level 3.6 mmol/L 3.4 mmol/L Chloride Level 105 mmol/L 106 mmol/L Carbon Dioxide Level 23 mmol/L 25 mmol/L Anion Gap 11.0 mmol/L 9.0 mmol/L Blood Urea Nitrogen 14 mg/dl 13 mg/dl Creatinine 0.94 mg/dl 0.92 mg/dl Est Creatinine Clear Calc Drug Dose 60.1 ml/min 61.4 ml/min Estimated GFR () 84.7 87.0 Estimated GFR (Non- 73.1 75.0 BUN/Creatinine Ratio 14.8 14.6 Random Glucose 96 mg/dl 88 mg/dl Calcium Level 8.5 mg/dl 8.0 mg/dl Magnesium Level 1.6 mg/dl 1.9 mg/dl Tear Drop Cells 1+ Echinocytes 1+ Medical Emergencies . Who to Call and When: Medical Emergencies: If at any time you feel your situation is an emergency, please call 911 immediately. . Non-Emergent Contact Non-Emergency issues call your: Primary Care Provider . . "Provider Documentation" section prepared by Reyna Ortez. Core Measure Problem Core Measures: None
[2016-09-23] MEDS ORDERED: ALBUTEROL HFA 8 GM INHALER INH PRN (09:00)
[2016-09-23] MEDS ORDERED: METOPROLOL SUCC 25MG EXT REL TAB PO SCH (09:00)
--- NOTE | 2016-09-23 09:02 | Discharge Summary ---
Discharge Summary Date of Service Sep 23, 2016. Discharge Summary Admission Date: Sep 21, 2016 at 14:03 Discharge Date: Sep 23, 2016 Discharge Disposition: care home facility Principal Diagnosis: Anemia Problems/Secondary Diagnoses: 1. Hypomagnesemia 2. h/o A. fib 3. SS syndrome s/p pacemaker 4. h/o GERD/dysphagia s/p dilation 5. Hypertension 6. Hyperlipidemia 7. BPH Consultations: GI- Dr. Jefferson and COBY Mitchell Medication Reconciliation New Medications: Ferrous Sulfate (Ferrous Sulfate) 325 Mg Tab 325 MG PO BIDM for 30 Days, #60 TAB Magnesium Oxide (Magnesium-Oxide) 400 Mg Tab 400 MG PO DAILY for 30 Days, #30 TAB Metoprolol Succinate (Metoprolol Succinate ER) 25 Mg Tabcr 25 MG PO QAM for 30 Days, #30 Pantoprazole (Pantoprazole Sodium) 40 Mg Tab 40 MG PO QAM for 30 Days, #30 TAB Continued Medications: Albuterol Hfa (Ventolin Hfa) 200 Puffs/59183 Mcg Aers 2 PUFFS INH QID, #1 INHALER Atorvastatin (Lipitor) 40 Mg Tab 40 MG PO QPM, TAB Cetirizine (Zyrtec) 10 Mg Tab 10 MG PO QPM, TAB Finasteride (Proscar) 5 Mg Tab 5 MG PO QPM, TAB Lisinopril (Zestril) 2.5 Mg Tab 2.5 MG PO QAM Discontinued Medications: Omeprazole (Prilosec) 20 Mg Capcr 20 MG PO QAM, CAP Rivaroxaban (Xarelto) 20 Mg Tab 20 MG PO QPM, TAB Discharge Exam Review of Systems: Constitutional: No chills, No fatigue, No fever, No sweats, No weakness Respiratory: No cough, No hemoptysis, No shortness of breath Cardiovascular: No chest pain, No edema Abdomen: No GI bleeding, No constipation, No diarrhea, No nausea, No pain, No vomiting Musculoskeletal: No calf pain, No joint pain, No muscle pain Genitourinary - Male: No hematuria, No urinary urgency Neurologic: No numbness/tingling, No weakness Psychiatric: No anxiety, No depression symptoms Hematologic / Lymphatic: No abnormal bleeding/bruising Integumentary: No itch, No new/changing skin lesions, No rash Physical Exam: General Appearance: no apparent distress Eyes: normal inspection, PERRL ENT: hearing grossly normal Neck: supple Respiratory/Chest: lungs clear, no respiratory distress, no accessory muscle use Cardiovascular: regular rate, rhythm, + irregularly irregular (rate controlled ) Abdomen / GI: normal bowel sounds, non tender, soft Extremities: no calf tenderness, no pedal edema Neurologic/Psychiatric: alert, normal mood/affect, oriented x 3 Skin: normal color, warm/dry, no rash Hospital Course This patient is an 86-year-old male that presents emergency department from [facility] with reports of anemia. The patient had his blood drawn earlier today that showed a hemoglobin of 6.0. The patient does admit to feeling fatigued and somewhat lightheaded upon standing over the last 3 days. He denies any chest pain or pressure. No shortness of breath. He denies any blood in his stool or dark stools, however he admits to not really looking. The patient does take Xarelto for a reported history of TIA. When reviewing outpatient records, he does have a history of atrial fibrillation. He also has a pacemaker. The patient otherwise reports feeling well recently. He denies any nausea or vomiting. No diarrhea. No abdominal pain. Denies any fever or chills. No cough or runny nose. Anemia w/ hgb of 5.6 at admission, possibly due to Xarelto: - Admit to telemetry for cardiac monitoring--> no acute events - Transfused 3 units on 09/21 and 1 unit on 09/22; administered Lasix 20 mg IV between 2nd and 3rd units - Fecal occult blood test- negative - TSH, b12/folate- WNL - B1 pending - Hold Xarelto due to GI bleed - Iron studies- iron 16, TIBC 412, ferritin 5.4 -- begin Ferrous Sulfate 325 mg PO BID on 09/22 - GI consult, appreciate recommendations -- ?EGD/colonoscopy--> patient wishes to defer procedures at this time - Discussion w/ patient and s/s of GI bleed Hypomagnesemia of 1.6 on 09/22: - Replete w/ IV Mag PRN - Started Mag-Ox supplement 400 mg BID--> will discharge with Mag-Ox 400 mg daily - Follow mag level h/o A. fib: - Continue Toprol-XL 25 mg PO daily - Xarelto held due to GI bleed. Home dose is 20 mg at night -- I had a long discussion w/ patient and daughter about the risk/benefits ( risk- increase change of reoccurring GI bleed/benefit- stroke prevention) of restarting Xarelto. They both agree that at this time, they would like to hold Xarelto at discharge and follow-up w/ Dr. Gabriel. Also, discussed about starting Coumadin vs Xarelto due to quick reversibility of Coumadin. At follow- up they will discuss this further. SS syndrome s/p pacemaker h/o GERD/dysphagia s/p dilation: Pantoprazole 40 mg PO daily- instructed patient to d/c Omeprazole and continue with Protonix at discharge Hypertension: Continue Lisinopril 2.5 mg daily Hyperlipidemia: Continue Lipitor 40 mg daily BPH: Continue Proscar 5 mg daily DVT prophylaxis: - Chemical means contraindicated secondary to profound anemia - TEDS, SCDs Code Status: LEVEL V, DNR Dispo: Discharge to [facility] Prior to discharge, I gave the patient/daughter the option of having a group discussion w/ hospitalist team/GI team to ensure complete understanding of risk/ benefits with decision to defer procedure/holding Xarelto at this time/and returning to [facility]. They both agree that they do not think it is necessary. All questions/concerns were answered to their satisfaction. Total Time Spent: Greater than 30 minutes This includes examination of the patient, discharge planning, medication reconciliation, and communication with other providers. Discharge Instructions Please refer to the electronic Patient Visit Report (Discharge Instructions) for additional information. Follow-Up Please follow-up with Dex provider within 24-48 hours Please follow-up/keep all of your subspecialty appointments Additional Copies To Tania Kowalski
[2016-09-23] MEDS ORDERED: COUGH DROP (SUGAR FREE) LOZ 24 LOZ/1 BOX ONE (09:04)
[2016-09-23 11:28] VITALS: BP 108/63; PULSE 68; TEMP 36.7; O2SAT 94
[2016-09-23 14:43] VITALS: BP 108/63; PULSE 68; TEMP 36.7; O2SAT 94
[2016-10-12] MEDS ORDERED: ATOR-24 PEG (07:52)
[2016-10-12] MEDS ORDERED: FERR1TAB13 PEG (07:52)
[2016-10-12] MEDS ORDERED: CETI10TA10 PO (07:52)
[2016-10-12] MEDS ORDERED: LISI-789 PO (07:52)
[2016-10-12] MEDS ORDERED: PANT40TA PEG (07:52)
[2016-10-12] MEDS ORDERED: FINA5TAB PEG (07:52)
[2016-10-12] MEDS ORDERED: MAGN400T6 PO (07:52)
[2016-10-12] MEDS ORDERED: METO25TA3 PO (07:52)
[2017-01-18] MEDS ORDERED: CETI10TA84 PEG (09:47)
[2017-01-18] MEDS ORDERED: HYDR1AER23 EXT (13:01)
[2017-03-11] MEDS ORDERED: CLC100X PO (14:45)
[2017-03-11] MEDS ORDERED: ECHI400C11 PO (14:52)
[2017-03-11] MEDS ORDERED: WHEAPOW PO (14:52)
[2017-03-28] MEDS ORDERED: LVNIS80 SQ (11:36)
[2017-03-28] MEDS ORDERED: FLM4 PO (11:36)
[2017-03-28] MEDS ORDERED: LEVE500T13 PO (11:38)
[2017-03-28] MEDS ORDERED: XRL20 PO (11:43)
[2017-03-28] MEDS ORDERED: Fibersource 1.2 Cal PEG (11:46)
[2017-03-28] MEDS ORDERED: FURO-85 PO (11:56)
== END 2016-09-23 15:00 | disposition home or self-care (01) | DRG 812 ==
LOC: ENRESERVDT → ENRESERVTM → C.EDB 10:45 → C.2E 14:03 → EDBEDREQ 14:08
PROVIDERS: ADMIT Hospitalist; ATTEND Hospitalist
DX: D64.9 Anemia, unspecified (principal); Z86.73 Personal history of transient ischemic attack (TIA), and cerebral infarction without residual deficits; I48.91 Unspecified atrial fibrillation; K21.9 Gastro-esophageal reflux disease without esophagitis; I10 Essential (primary) hypertension; E78.5 Hyperlipidemia, unspecified; Z95.0 Presence of cardiac pacemaker; Z80.8 Family history of malignant neoplasm of other organs or systems; Z79.01 Long term (current) use of anticoagulants; Z79.899 Other long term (current) drug therapy; N40.0 Benign prostatic hyperplasia without lower urinary tract symptoms; Z66 Do not resuscitate; E83.42 Hypomagnesemia

== ENCOUNTER → 2016-09-21 | Outpatient (CLI) | payer OTHER, BC ==
[~2016-09-21] MED LIST: ALBU1AER9 INH; ATOR-24 PO; BCTCR/30 EXT; CETI10TA10 PO; CETI10TA84 PO; CLC100X PO; DEXTSYP27 PO; DOCU-94 PO; ECHI400C11 PO; FERR1TAB13 PO; FINA5TAB PO; FLM4 PO; FLUT0.15 NAE; FRRS300 PO; FURO-85 PO; Fibersource 1.2 Cal PEG; GUAI600T33 PO; HYDR2.5C37 TOP; HYDR25SU20 PR; HYDRAER4 EXT; LEVE500T13 PO; LEVO1TAB35 PO; LISI-789 PO; LPT/40 PO; LVNIS80 SQ; MAGN400T6 PO; MECL1TAB42 PO; MELA1TAB5 PO; METO25TA3 PO; MGNO400 PO; ONDA4TAB46 PO; PANT40TA PO; PRLSR20 PO; PRT40 PO; RANI150T3 PO; RIVA1.5T PO; RIVA1TAB4 PO; TPRSR25 PO; VNTHFA/IN INH; WHEAPOW PO; XRL20 PO
[2016-09-21 09:49] LABS: ALT/SGPT 41 U/L (12-78); BLOOD UREA NITROGEN 16 mg/dl (7-18); BUN/CREATININE RATIO 17.2 (10-20); CALCIUM 8.9 mg/dl (8.5-10.1); CARBON DIOXIDE 23 mmol/L (21-32); CHLORIDE 105 mmol/L (98-107); CREATININE 0.95 mg/dl (0.60-1.40); GLUCOSE 90 mg/dl (70-99); POTASSIUM 3.9 mmol/L (3.5-5.1); SODIUM 138 mmol/L (136-145)
[2016-09-21 09:51] LABS: HEMATOCRIT 20.7 % (42-52); MEAN CELL VOLUME 72.1 fL (80-100); MEAN CORPUSCULAR HEMOGLOBIN 21.6 pg (25-34); MEAN PLATELET VOLUME 9.6 fL (7.4-10.4); PLATELET COUNT 156 K/uL (130-400); RED BLOOD COUNT 2.87 M/uL (4.7-6.1); WHITE BLOOD COUNT 3.55 K/uL (4.8-10.8)
[2016-09-21 09:59] LABS: ALB/GLOB RATIO 1.1 (0.9-2); ALKALINE PHOSPHATASE 114 U/L (45-117); AST/SGOT 46 U/L (15-37)
== END | disposition home or self-care (01) ==
LOC: C.LABFOXMH 08:58
PROVIDERS: ATTEND Internal Medicine
DX: R53.83 Other fatigue (principal)

== ENCOUNTER → 2016-09-26 | Outpatient (CLI) | payer OTHER, BC ==
[~2016-09-26] MED LIST changes: -ALBU1AER9 INH; +ATOR-24 PEG; +BCTCR/30 EXT; +CETI10TA10 PO; +CETI10TA84 PEG; +CETI10TA84 PO; +CLC100X PO; +DEXTSYP27 PO; +DOCU-94 PO; +DOCU5LIQ PEG; +ECHI400C11 PO; +FERR1TAB13 PEG; +FINA5TAB PEG; +FLM4 PO; +FLUT0.15; +FLUT0.15 NAE; +FRRS300 PO; +FURO-85 PO; +Fibersource 1.2 Cal PEG; +GUAI600T33 PO; +HYDR1AER23 EXT; +HYDR2.5C37 TOP; +HYDR25SU20 PR; +IPRASOL4 INH; +KCLI20/100 PEG; +LEVE100S10 PEG; +LEVE500T13 PO; +LEVO1TAB35 PO; +LVNIS80 SQ; +MAGN400T6 PO; +MECL1TAB42 PO; +MELA1TAB5 PO; +METO25TA3 PO; +MGNG500 PEG; +MGNO400 PO; +MOMLX PEG; +NUTRLIQ14 PEG; +ONDA4TAB46 PO; +PANT40TA PEG; -PRLSR20 PO; +PRT40 PO; +RANI150T3 PO; +RIVA1.5T PO; +RIVA1TAB4 PEG; -RIVA1TAB4 PO; +TAMS0.4C38 PEG; +TPRSR25 PO; +VNTHFA/IN INH; +WHEAPOW PO; +XRL20 PO
[2016-09-26 09:14] LABS: HEMATOCRIT 28.5 % (42-52); MEAN CELL VOLUME 77.7 fL (80-100); MEAN CORPUSCULAR HEMOGLOBIN 23.4 pg (25-34); MEAN CORPUSCULAR HGB CONC 30.2 g/dl (32-36); MEAN PLATELET VOLUME 9.9 fL (7.4-10.4); PLATELET COUNT 147 K/uL (130-400); RED BLOOD COUNT 3.67 M/uL (4.7-6.1); WHITE BLOOD COUNT 3.92 K/uL (4.8-10.8)
== END | disposition home or self-care (01) ==
LOC: C.LABFOXMH 08:09
PROVIDERS: ATTEND Internal Medicine
DX: D64.9 Anemia, unspecified (principal)

== ENCOUNTER → 2016-10-17 | Outpatient (CLI) | payer OTHER, BC ==
[~2016-10-17] MED LIST changes: -CETI10TA84 PO; -FINA5TAB PO; -FRRS300 PO; -LPT/40 PO; -MGNO400 PO; -PRT40 PO; -TPRSR25 PO
[2016-10-17 10:36] LABS: HEMATOCRIT 40.8 % (42-52); MEAN CELL VOLUME 82.6 fL (80-100); MEAN CORPUSCULAR HEMOGLOBIN 26.3 pg (25-34); MEAN CORPUSCULAR HGB CONC 31.9 g/dl (32-36); MEAN PLATELET VOLUME 10.1 fL (7.4-10.4); PLATELET COUNT 218 K/uL (130-400); RED BLOOD COUNT 4.94 M/uL (4.7-6.1); WHITE BLOOD COUNT 4.85 K/uL (4.8-10.8)
== END | disposition home or self-care (01) ==
LOC: C.LABFOXDH 10:01
PROVIDERS: ATTEND Internal Medicine
DX: D64.9 Anemia, unspecified (principal)

== ENCOUNTER → 2016-10-26 | Outpatient (CLI) | payer OTHER, BC ==
[2016-10-26 08:23] LABS: HEMATOCRIT 39.6 % (42-52); MEAN CELL VOLUME 81.6 fL (80-100); MEAN CORPUSCULAR HEMOGLOBIN 25.6 pg (25-34); MEAN CORPUSCULAR HGB CONC 31.3 g/dl (32-36); MEAN PLATELET VOLUME 9.9 fL (7.4-10.4); PLATELET COUNT 184 K/uL (130-400); RED BLOOD COUNT 4.85 M/uL (4.7-6.1); WHITE BLOOD COUNT 4.69 K/uL (4.8-10.8)
== END | disposition home or self-care (01) ==
LOC: C.LABFOXMH 08:01
PROVIDERS: ATTEND Internal Medicine
DX: I48.91 Unspecified atrial fibrillation (principal)

== ENCOUNTER → 2016-11-04 | Outpatient (CLI) | payer OTHER, BC ==
[2016-11-04 09:35] LABS: HEMATOCRIT 37.7 % (42-52); MEAN CELL VOLUME 81.4 fL (80-100); MEAN CORPUSCULAR HEMOGLOBIN 26.8 pg (25-34); MEAN CORPUSCULAR HGB CONC 32.9 g/dl (32-36); PLATELET COUNT 187 K/uL (130-400); RED BLOOD COUNT 4.63 M/uL (4.7-6.1); WHITE BLOOD COUNT 3.54 K/uL (4.8-10.8)
== END | disposition home or self-care (01) ==
LOC: C.LABFOXMH 08:07
PROVIDERS: ATTEND Internal Medicine
DX: D64.9 Anemia, unspecified (principal)

== ENCOUNTER → 2016-11-11 | Outpatient (CLI) | payer OTHER, BC ==
[2016-11-11 09:30] LABS: HEMATOCRIT 37.4 % (42-52); MEAN CELL VOLUME 80.3 fL (80-100); MEAN CORPUSCULAR HEMOGLOBIN 25.5 pg (25-34); MEAN CORPUSCULAR HGB CONC 31.8 g/dl (32-36); MEAN PLATELET VOLUME 9.4 fL (7.4-10.4); PLATELET COUNT 176 K/uL (130-400); RED BLOOD COUNT 4.66 M/uL (4.7-6.1); WHITE BLOOD COUNT 3.84 K/uL (4.8-10.8)
== END | disposition home or self-care (01) ==
LOC: C.LABFOXMH 09:08
PROVIDERS: ATTEND Internal Medicine
DX: D64.9 Anemia, unspecified (principal)

== ENCOUNTER → 2016-11-18 | Outpatient (CLI) | payer OTHER, BC ==
[2016-11-18 09:24] LABS: HEMATOCRIT 37.1 % (42-52); MEAN CELL VOLUME 81.5 fL (80-100); MEAN CORPUSCULAR HGB CONC 33.2 g/dl (32-36); MEAN PLATELET VOLUME 9.8 fL (7.4-10.4); PLATELET COUNT 164 K/uL (130-400); RED BLOOD COUNT 4.55 M/uL (4.7-6.1); WHITE BLOOD COUNT 3.07 K/uL (4.8-10.8)
== END | disposition home or self-care (01) ==
LOC: C.LABFOXMH 08:30
PROVIDERS: ATTEND Internal Medicine
DX: D64.9 Anemia, unspecified (principal)

== ENCOUNTER → 2016-11-25 | Outpatient (CLI) | payer OTHER, BC ==
[2016-11-25 11:51] LABS: HEMATOCRIT 39.1 % (42-52); MEAN CELL VOLUME 82.7 fL (80-100); MEAN CORPUSCULAR HEMOGLOBIN 26.6 pg (25-34); MEAN CORPUSCULAR HGB CONC 32.2 g/dl (32-36); MEAN PLATELET VOLUME 9.8 fL (7.4-10.4); PLATELET COUNT 191 K/uL (130-400); RED BLOOD COUNT 4.73 M/uL (4.7-6.1)
== END | disposition home or self-care (01) ==
LOC: C.LABFOXMH 09:01
PROVIDERS: ATTEND Internal Medicine
DX: D64.9 Anemia, unspecified (principal)

== ENCOUNTER → 2016-12-02 | Outpatient (CLI) | payer OTHER, BC ==
[2016-12-02 08:57] LABS: MEAN CELL VOLUME 81.5 fL (80-100); MEAN CORPUSCULAR HEMOGLOBIN 26.7 pg (25-34); MEAN CORPUSCULAR HGB CONC 32.7 g/dl (32-36); MEAN PLATELET VOLUME 9.2 fL (7.4-10.4); PLATELET COUNT 182 K/uL (130-400); RED BLOOD COUNT 4.54 M/uL (4.7-6.1); WHITE BLOOD COUNT 3.05 K/uL (4.8-10.8)
== END | disposition home or self-care (01) ==
LOC: C.LABFOXMH 08:22
PROVIDERS: ATTEND Internal Medicine
DX: D64.9 Anemia, unspecified (principal)

== ENCOUNTER → 2016-12-16 | Outpatient (CLI) | payer OTHER, BC ==
[2016-12-16 09:40] LABS: HEMATOCRIT 35.5 % (42-52); MEAN CELL VOLUME 82.8 fL (80-100); MEAN CORPUSCULAR HEMOGLOBIN 28.4 pg (25-34); MEAN CORPUSCULAR HGB CONC 34.4 g/dl (32-36); MEAN PLATELET VOLUME 9.5 fL (7.4-10.4); PLATELET COUNT 149 K/uL (130-400); RED BLOOD COUNT 4.29 M/uL (4.7-6.1); WHITE BLOOD COUNT 3.38 K/uL (4.8-10.8)
== END | disposition home or self-care (01) ==
LOC: C.LABFOXMH 08:51
PROVIDERS: ATTEND Internal Medicine
DX: D64.9 Anemia, unspecified (principal)

== ENCOUNTER → 2016-12-30 | Outpatient (CLI) | payer OTHER, BC ==
[~2016-12-30] MED LIST changes: -ATOR-24 PEG; +ATOR-24 PO; -CETI10TA84 PEG; +CETI10TA84 PO; -DOCU5LIQ PEG; -FERR1TAB13 PEG; +FERR1TAB13 PO; -FINA5TAB PEG; +FINA5TAB PO; -FLUT0.15; -HYDR1AER23 EXT; +HYDRAER4 EXT; -IPRASOL4 INH; -KCLI20/100 PEG; -LEVE100S10 PEG; -MGNG500 PEG; -MOMLX PEG; -NUTRLIQ14 PEG; -PANT40TA PEG; +PANT40TA PO; -RIVA1TAB4 PEG; -TAMS0.4C38 PEG
[2016-12-30 09:12] LABS: HEMATOCRIT 36.1 % (42-52); MEAN CELL VOLUME 84.7 fL (80-100); MEAN CORPUSCULAR HEMOGLOBIN 28.4 pg (25-34); MEAN CORPUSCULAR HGB CONC 33.5 g/dl (32-36); MEAN PLATELET VOLUME 9.3 fL (7.4-10.4); PLATELET COUNT 164 K/uL (130-400); RED BLOOD COUNT 4.26 M/uL (4.7-6.1); WHITE BLOOD COUNT 3.52 K/uL (4.8-10.8)
== END | disposition home or self-care (01) ==
LOC: C.LABFOXMH 08:43
PROVIDERS: ATTEND Internal Medicine
DX: D64.9 Anemia, unspecified (principal)

== ENCOUNTER → 2017-01-13 | Outpatient (CLI) | payer OTHER, BC ==
[2017-01-13 08:22] LABS: HEMATOCRIT 34.3 % (42-52); MEAN CELL VOLUME 85.1 fL (80-100); MEAN CORPUSCULAR HEMOGLOBIN 29.5 pg (25-34); MEAN CORPUSCULAR HGB CONC 34.7 g/dl (32-36); MEAN PLATELET VOLUME 9.1 fL (7.4-10.4); PLATELET COUNT 160 K/uL (130-400); RED BLOOD COUNT 4.03 M/uL (4.7-6.1); WHITE BLOOD COUNT 3.61 K/uL (4.8-10.8)
== END | disposition home or self-care (01) ==
LOC: C.LABFOXMH 07:42
PROVIDERS: ATTEND Internal Medicine
DX: D64.9 Anemia, unspecified (principal)

== ENCOUNTER 2017-01-18 08:59 | Emergency (ER) | payer OTHER, BC ==
[~2017-01-18] VITALS: Ht 180.3 cm; Wt 82.0 kg
[~2017-01-18 08:59] MED LIST changes: -BCTCR/30 EXT; -CETI10TA84 PO; -CLC100X PO; -DEXTSYP27 PO; -DOCU-94 PO; -ECHI400C11 PO; -FLM4 PO; -FLUT0.15 NAE; -FURO-85 PO; -Fibersource 1.2 Cal PEG; -GUAI600T33 PO; -HYDR2.5C37 TOP; -HYDR25SU20 PR; -HYDRAER4 EXT; -LEVE500T13 PO; -LEVO1TAB35 PO; -LVNIS80 SQ; -MECL1TAB42 PO; -MELA1TAB5 PO; -ONDA4TAB46 PO; -RANI150T3 PO; -RIVA1.5T PO; -WHEAPOW PO; -XRL20 PO
[2017-01-18 09:04] VITALS: TEMP 36.5; Ht 180.3 cm; Wt 82.0 kg
[2017-01-18 09:08] VITALS: O2SAT 95
--- NOTE | 2017-01-18 09:14 | EMERGENCY ROOM VISIT NOTE ---
History Report prepared by Ruby: Ta Ramirez Under the Supervision of: Dr. Young Vega M.D. First contact with patient: 08:58 Chief Complaint: RECTAL BLEEDING Stated Complaint: RECTAL BLEED / [facility] Nursing Triage Summary: pt states he woke up this morning and noticed a "stain" on my mattress. I realized it was coming out of me. smalll amount of bright red blood noted on pts pants at time of arrival to er. patient currently taking blood thinners. denies any complaints at this time. History of Present Illness The patient is an 86 year old male who presents to the Emergency Room with complaints of intermittent rectal bleeding beginning this morning. The patient states that he woke this morning to find bright red blood on his bedding, and his pants were soiled. He reports that he has been constipated for four days, and his last bowel movement was four days ago. The patient notes that it was normal, and he has been straining for the past four days as well. He states that he is not taking NSAIDs or aspirin. The patient reports that he is on Xarelto for A-Fib. He denies lightheadedness, shortness of breath, nausea, and abdominal pain. Source of History: patient Onset: this morning Position: buttock Quality: other (bleeding) Timing: intermittent Associated Symptoms: No SOB, No nausea, No abdominal pain Note: Associated symptoms: constipation with straining Denies: lightheadedness Review of Systems See HPI for pertinent positives & negatives. A total of 10 systems reviewed and were otherwise negative. Past Medical & Surgical Medical Problems: (1) Acute bronchitis (2) Anemia (3) Arm paresthesia, right (4) Arm paresthesia, right (5) GERD (gastroesophageal reflux disease) (6) HTN (hypertension) (7) Hyperlipidemia (8) URI (upper respiratory infection) Surgical Problems: (1) H/O hernia repair Family History GI malignancy Social History Smoking Status: Never Smoker Alcohol Use: none Drug Use: none Marital Status: Occupation Status: retired Current/Historical Medications Scheduled Atorvastatin (Lipitor), 40 MG PO QPM Cetirizine (Zyrtec), 10 MG PO QPM Docusate Sodium (Colace), 1 CAP PO BID Ferrous Sulfate (Kp Ferrous Sulfate), 325 MG PO BID Finasteride (Proscar), 5 MG PO QPM Fluticasone Propionate (Nasal) (Flonase Allergy Relief), 2 SPRAY VESTA QAM Hydrocortisone 2.5% (Rectal) (Anusol-Hc 2.5%), 1 APPLN TOP BID Hydrocortisone Acetate (Rectal (Anusol-Hc), 25 MG WV BID Hydrocortisone/Pramoxine (Proctofoam Hc), 1 APPL EXT BID Lisinopril (Zestril), 2.5 MG PO QAM Magnesium Oxide (Mag-Ox), 400 MG PO QAM Melatonin (Kp Melatonin), 3 MG PO HS Metoprolol Succinate (Toprol Xl), 25 MG PO QPM Mupirocin 2% (Bactroban 2%), 1 APPLN EXT BID Pantoprazole (Protonix), 40 MG PO BID Ranitidine Hcl (Zantac), 150 MG PO QPM Rivaroxaban (Xarelto), 15 MG PO QPM Scheduled PRN Albuterol Hfa (Ventolin Hfa), 2 PUFFS INH QID PRN for Shortness of Breath Dextromethorphan-Guaifenesin (Guaifenesin Dm), 10 ML PO Q4H PRN for Cough Guaifenesin (Sm Mucus Er), 600 MG PO UD PRN for CONGESTION Meclizine Hcl (Meclizine Hcl), 25 MG PO TID PRN for Dizziness or Vertigo Ondansetron Hcl (Zofran), 4 MG PO Q4H PRN for Nausea Allergies Coded Allergies: No Known Allergies (Verified , 01/18/17) Physical Exam Vital Signs Date Time Temp Pulse Resp B/P (MAP) Pulse Ox O2 Delivery O2 Flow Rate FiO2 01/18/17 12:10 86 18 140/84 97 01/18/17 11:14 62 18 139/86 100 Room Air 01/18/17 09:08 95 Room Air 01/18/17 09:07 66 01/18/17 09:04 36.5 91 16 120/84 95 Room Air Physical Exam GENERAL: Patient is well appearing and in no acute distress. HEENT: No acute trauma, normocephalic atraumatic, mucous membranes moist, no nasal congestion, no scleral icterus. NECK: No stridor, no adenopathy, no meningismus, trachea is midline. LUNGS: No dyspnea. Clear to auscultation and equal bilaterally. No wheeze, no rhonchi. HEART: Regular rate and rhythm. No murmurs, rubs, gallops appreciated. ABDOMEN: Soft, nontender, bowel sounds positive, no masses appreciated, no peritonitis. BACK: No midline tenderness, no CVA tenderness RECTAL: Blood throughout bilateral buttock and thighs, large bleeding internal posterior hemorrhoid with scant liquid and brown stool. EXTREMITIES: Normal motion all extremities, no cyanosis, no edema. NEUROLOGIC: Alert and oriented, no acute motor or sensory deficits, no focal weakness, cranial nerves grossly intact. SKIN: No rash, no jaundice, no diaphoresis. Medical Decision & Procedures ER Provider Diagnostic Interpretation: X ray results are stated below per my interpretation and the radiologist's interpretation. ABDOMEN 2VIEW W/PA CHEST RTN HISTORY: 86 years-old Male constipation COMPARISON: 03/13/2016 chest radiographs TECHNIQUE: Frontal view of the chest with erect and supine views of the abdomen FINDINGS: Cardiac silhouette is again enlarged. There is atherosclerosis of the aorta. Single lead left pectoral pacer with lead overlying the right ventricle is unchanged. There is no pneumothorax. There is improved aeration of the right lung base. Persistent small right pleural effusion is noted. There are moderate degenerative changes of the bilateral shoulders. No pneumoperitoneum on the upright projection. The bowel gas pattern is nonobstructive. Vascular calcifications are noted. Bones are mildly demineralized. There are moderate degenerative changes of the bilateral hips. Moderate volume of formed stool seen throughout the colon. IMPRESSION: 1. Trace right pleural effusion again noted without acute cardiopulmonary process. 2. Cardiomegaly. 3. Moderate volume of formed colonic stool may suggests underlying constipation. 4. No bowel obstruction. The above report was generated using voice recognition software. It may contain grammatical, syntax or spelling errors. Electronically signed by: Efrem Paredes M.D. 01/18/2017 11:17 AM Dictated Date/Time: 01/18/2017 11:13 AM Laboratory Results 01/18/17 09:06 Red Blood Count 4.15, Mean Corpuscular Volume 87.0, Mean Corpuscular Hemoglobin 29.9, Mean Corpuscular Hemoglobin Concent 34.3, Mean Platelet Volume 8.8, Neutrophils (%) (Auto) 71.8, Lymphocytes (%) (Auto) 14.6, Monocytes (%) (Auto) 9.6, Eosinophils (%) (Auto) 3.4, Basophils (%) (Auto) 0.6, Neutrophils # (Auto) 2.56, Lymphocytes # (Auto) 0.52, Monocytes # (Auto) 0.34, Eosinophils # (Auto) 0.12, Basophils # (Auto) 0.02 01/18/17 09:06 Test 01/18/17 09:06 White Blood Count 3.56 K/uL (4.8-10.8) Red Blood Count 4.15 M/uL (4.7-6.1) Hemoglobin 12.4 g/dL (14.0-18.0) Hematocrit 36.1 % (42-52) Mean Corpuscular Volume 87.0 fL (80-100) Mean Corpuscular Hemoglobin 29.9 pg (25-34) Mean Corpuscular Hemoglobin Concent 34.3 g/dl (32-36) Platelet Count 157 K/uL (130-400) Mean Platelet Volume 8.8 fL (7.4-10.4) Neutrophils (%) (Auto) 71.8 % Lymphocytes (%) (Auto) 14.6 % Monocytes (%) (Auto) 9.6 % Eosinophils (%) (Auto) 3.4 % Basophils (%) (Auto) 0.6 % Neutrophils # (Auto) 2.56 K/uL (1.4-6.5) Lymphocytes # (Auto) 0.52 K/uL (1.2-3.4) Monocytes # (Auto) 0.34 K/uL (0.11-0.59) Eosinophils # (Auto) 0.12 K/uL (0-0.5) Basophils # (Auto) 0.02 K/uL (0-0.2) RDW Standard Deviation 51.1 fL (36.4-46.3) RDW Coefficient of Variation 16.5 % (11.5-14.5) Immature Granulocyte % (Auto) 0.0 % Immature Granulocyte # (Auto) 0.00 K/uL (0.00-0.02) Prothrombin Time 13.2 SECONDS (9.0-12.0) Prothromb Time International Ratio 1.2 (0.9-1.1) Activated Partial Thromboplast Time 30.1 SECONDS (21.0-31.0) Partial Thromboplastin Ratio 1.2 Anion Gap 7.0 mmol/L (3-11) Est Creatinine Clear Calc Drug Dose 58.8 ml/min Estimated GFR () 82.6 Estimated GFR (Non- 71.3 BUN/Creatinine Ratio 10.5 (10-20) Calcium Level 9.1 mg/dl (8.5-10.1) Laboratory results as reviewed by me. ED Course 0859: The patient was evaluated in room A02. A complete history and physical exam was performed. 1003: I discussed the patients case with PATRICIA Wilkinson. She notes that they do not do banding or ligation of internal hemorrhoids. She states that if I feel surgery is needed to stop the bleeding, I must call general surgery. 1132: Reevaluated the patient. He is feeling better and there is no further bleeding from his hemorrhoid. Discussed results and discharge instructions: he verbalized understanding and agreement. The patient is ready for discharge. Medical Decision Differential: Diverticulitis, AVM, Coagulopathy, Colitis, Malignancy, Upper GI bleed, Fissure, Hemorrhoids, amongst other pathologies entertained. Very pleasant 86 yr old male in no distress arrives for evaluation of painless rectal bleeding. Exam with large posterior internal hemorrhoid bleeding. On Xarelto with known history of anemia requiring transfusion. Vitals stable, HgB OK, and patient feeling well. Discussed with GI (follows with Dr Jefferson) who note that if continued bleeding will need surg eval. Monitored for several hours without further bleeding. Notes constipation. No large stool in rectal vault though some noted throughout on kub. Will start colace to decrease straining though with hemorrhoid and recent bleeding would avoid enemas or other stronger laxatives at this time. Anusol ordered. Reviewed plan with patient and symptoms requiring return. Advised Gen Surg follow up. Medication Reconcilliation Current Medication List: was personally reviewed by me Blood Pressure Screening Patient's blood pressure: Normal blood pressure Blood pressure disposition: Did not require urgent referral Consults Time Called: 1001 Consulting Physician: PATRICIA Lyons Returned Call: 1003 I discussed the patients case with PATRICIA Wilkinson. She notes that they do not do banding or ligation of internal hemorrhoids. She states that if I feel surgery is needed to stop the bleeding, I must call general surgery. Impression Primary Impression: Bleeding internal hemorrhoids Additional Impression: Constipation Scribe Attestation The scribe's documentation has been prepared under my direction and personally reviewed by me in its entirety. I confirm that the note above accurately reflects all work, treatment, procedures, and medical decision making performed by me. Departure Information Dispostion Home / Self-Care Prescriptions Hydrocortisone/Pramoxine (Proctofoam Hc) Aer 1 APPL EXT BID, #1 CAN Prov: Young Vega M.D. 01/18/17 Hydrocortisone 2.5% (Rectal) (ANUSOL-HC 2.5%) 2.5 % Cre 1 APPLN TOP BID for 7 Days, #30 GM 1 Refill Prov: Young Vega M.D. 01/18/17 Docusate Sodium (COLACE) 100 Mg Cap 1 CAP PO BID, #30 CAP Prov: Young Vega M.D. 01/18/17 Hydrocortisone Acetate (Rectal (ANUSOL-HC) 25 Mg Sup 25 MG WV BID for 5 Days, #10 SUPP Prov: Young Vega M.D. 01/18/17 Referrals Tania Kowalski (PCP) Forms HOME CARE DOCUMENTATION FORM, IMPORTANT VISIT INFORMATION, WORK / SCHOOL INSTRUCTIONS Patient Instructions ED Constipation, Hemorrhoids, My [facility] Additional Instructions Please follow up with your primary care provider within the week for recheck. Hold your Xarelto for 1 week to avoid further bleeding. Follow up with a surgeon for evaluation of your internal hemorrhoid or with Dr Jefferson. Return if heavy bleeding, chest pain, passing out or other concerns. Problem Qualifiers
[2017-01-18 09:44] LABS: BASO % 0.6 %; BASO ABS # 0.02 K/uL (0-0.2); COMPLETE YES; EOS % 3.4 %; HEMATOCRIT 36.1 % (42-52); LYMPH % 14.6 %; LYMPH ABS # 0.52 K/uL (1.2-3.4); MEAN CORPUSCULAR HEMOGLOBIN 29.9 pg (25-34); MEAN CORPUSCULAR HGB CONC 34.3 g/dl (32-36); MEAN PLATELET VOLUME 8.8 fL (7.4-10.4); MONO % 9.6 %; NEUT % 71.8 %; PLATELET COUNT 157 K/uL (130-400); RED BLOOD COUNT 4.15 M/uL (4.7-6.1); WHITE BLOOD COUNT 3.56 K/uL (4.8-10.8)
[2017-01-18] MEDS ORDERED: FLUT0.15 NAE (09:47)
[2017-01-18] MEDS ORDERED: ONDA4TAB46 PO (09:47)
[2017-01-18] MEDS ORDERED: DEXTSYP27 PO (09:47)
[2017-01-18] MEDS ORDERED: CETI10TA84 PO (09:47)
[2017-01-18] MEDS ORDERED: MECL1TAB42 PO (09:47)
[2017-01-18] MEDS ORDERED: MELA1TAB5 PO (09:47)
[2017-01-18] MEDS ORDERED: BCTCR/30 EXT (09:47)
[2017-01-18] MEDS ORDERED: RIVA1.5T PO (09:47)
[2017-01-18] MEDS ORDERED: RANI150T3 PO (09:47)
[2017-01-18] MEDS ORDERED: GUAI600T33 PO (09:47)
[2017-01-18 09:50] LABS: INR 1.2 (0.9-1.1); PARTIAL THROMBOPLASTIN RATIO 1.2; PROTHROMBIN TIME (PATIENT) 13.2 SECONDS (9.0-12.0)
[2017-01-18 09:51] LABS: BUN/CREATININE RATIO 10.5 (10-20); CALCIUM 9.1 mg/dl (8.5-10.1); CREATININE 0.96 mg/dl (0.60-1.40); POTASSIUM 3.9 mmol/L (3.5-5.1)
--- NOTE | 2017-01-18 11:18 | DIAGNOSTIC IMAGING REPORT ---
ABDOMEN 2VIEW W/PA CHEST RTN HISTORY: 86 years-old Male constipation COMPARISON: 03/13/2016 chest radiographs TECHNIQUE: Frontal view of the chest with erect and supine views of the abdomen FINDINGS: Cardiac silhouette is again enlarged. There is atherosclerosis of the aorta. Single lead left pectoral pacer with lead overlying the right ventricle is unchanged. There is no pneumothorax. There is improved aeration of the right lung base. Persistent small right pleural effusion is noted. There are moderate degenerative changes of the bilateral shoulders. No pneumoperitoneum on the upright projection. The bowel gas pattern is nonobstructive. Vascular calcifications are noted. Bones are mildly demineralized. There are moderate degenerative changes of the bilateral hips. Moderate volume of formed stool seen throughout the colon. IMPRESSION: 1. Trace right pleural effusion again noted without acute cardiopulmonary process. 2. Cardiomegaly. 3. Moderate volume of formed colonic stool may suggests underlying constipation. 4. No bowel obstruction. The above report was generated using voice recognition software. It may contain grammatical, syntax or spelling errors. Electronically signed by: Efrem Paredes M.D. 01/18/2017 11:17 AM Dictated Date/Time: 01/18/2017 11:13 AM
[2017-01-18] MEDS ORDERED: DOCU-94 PO (11:36)
[2017-01-18] MEDS ORDERED: HYDR25SU20 PR (11:36)
[2017-01-18 12:10] VITALS: BP 140/84; PULSE 86; O2SAT 97
[2017-01-18] MEDS ORDERED: HYDR2.5C37 TOP (13:01)
[2017-01-18] MEDS ORDERED: HYDRAER4 EXT (13:01)
[2017-03-11] MEDS ORDERED: CLC100X PO (14:45)
[2017-03-11] MEDS ORDERED: ECHI400C11 PO (14:52)
[2017-03-11] MEDS ORDERED: WHEAPOW PO (14:52)
[2017-03-28] MEDS ORDERED: LVNIS80 SQ (11:36)
[2017-03-28] MEDS ORDERED: FLM4 PO (11:36)
[2017-03-28] MEDS ORDERED: LEVE500T13 PO (11:38)
[2017-03-28] MEDS ORDERED: XRL20 PO (11:43)
[2017-03-28] MEDS ORDERED: Fibersource 1.2 Cal PEG (11:46)
[2017-03-28] MEDS ORDERED: FURO-85 PO (11:56)
== END 2017-01-18 14:12 | disposition home or self-care (01) ==
LOC: EDBD 08:59 → C.EDA 09:00
DX: K64.8 Other hemorrhoids (principal); K59.00 Constipation, unspecified; I48.91 Unspecified atrial fibrillation; Z79.01 Long term (current) use of anticoagulants; D64.9 Anemia, unspecified; K21.9 Gastro-esophageal reflux disease without esophagitis; I10 Essential (primary) hypertension; E78.5 Hyperlipidemia, unspecified; Z80.0 Family history of malignant neoplasm of digestive organs; Z79.899 Other long term (current) drug therapy

== ENCOUNTER → 2017-01-27 | Outpatient (CLI) | payer OTHER, BC ==
[~2017-01-27] MED LIST changes: +BCTCR/30 EXT; -CETI10TA10 PO; +CETI10TA84 PO; +CLC100X PO; +DEXTSYP27 PO; +DOCU-94 PO; +ECHI400C11 PO; +FLM4 PO; +FLUT0.15 NAE; +FURO-85 PO; +Fibersource 1.2 Cal PEG; +GUAI600T33 PO; +HYDR2.5C37 TOP; +HYDRAER4 EXT; +LEVE500T13 PO; +LEVO1TAB35 PO; +LVNIS80 SQ; +MECL1TAB42 PO; +MELA1TAB5 PO; +ONDA4TAB46 PO; +RANI150T3 PO; +RIVA1.5T PO; +WHEAPOW PO; +XRL20 PO
[2017-01-27 08:24] LABS: MEAN CELL VOLUME 88.1 fL (80-100); MEAN CORPUSCULAR HEMOGLOBIN 30.6 pg (25-34); MEAN CORPUSCULAR HGB CONC 34.7 g/dl (32-36); MEAN PLATELET VOLUME 9.4 fL (7.4-10.4); PLATELET COUNT 162 K/uL (130-400); RED BLOOD COUNT 3.86 M/uL (4.7-6.1); WHITE BLOOD COUNT 3.07 K/uL (4.8-10.8)
== END | disposition home or self-care (01) ==
LOC: C.LABSPEC 07:45
PROVIDERS: ATTEND Internal Medicine
DX: D64.9 Anemia, unspecified (principal)

== ENCOUNTER → 2017-02-10 | Outpatient (CLI) | payer OTHER, BC ==
[~2017-02-10] MED LIST changes: -HYDRAER4 EXT
[2017-02-10 10:02] LABS: MEAN CELL VOLUME 88.2 fL (80-100); MEAN CORPUSCULAR HEMOGLOBIN 30.7 pg (25-34); MEAN CORPUSCULAR HGB CONC 34.8 g/dl (32-36); MEAN PLATELET VOLUME 9.2 fL (7.4-10.4); PLATELET COUNT 179 K/uL (130-400); RED BLOOD COUNT 3.74 M/uL (4.7-6.1); WHITE BLOOD COUNT 3.56 K/uL (4.8-10.8)
--- NOTE | 2017-02-22 12:33 | CODING QUERY NO DIAGNOSIS ---
TREATMENT RENDERED WITHOUT A DIAGNOSIS To promote full compliance with coding requirements relating to patient care, physician participation is requested in all cases of ui software engineer uncertainty. Please assist us with providing a diagnosis/symptom for the test(s) below: A diagnosis/symptom was not documented on your Order. A valid diagnosis/symptom is required to bill all insurances. Please remember that we are unable to code a diagnosis of rule out, probable, possible, questionable, or suspected. Tests that require a diagnosis: * CBC W/O DIFF DIAGNOSIS: Provider Signature: Date: Thank you Aileen Aguilar [facility] Information Management Once completed, please kindly fax back to [phone] For questions please call [phone]
== END | disposition home or self-care (01) ==
LOC: C.LABFOXMH 09:22
PROVIDERS: ATTEND Internal Medicine
DX: D64.9 Anemia, unspecified (principal)

== ENCOUNTER → 2017-02-24 | Outpatient (CLI) | payer OTHER, BC ==
[2017-02-24 12:17] LABS: MEAN CELL VOLUME 91.4 fL (80-100); MEAN CORPUSCULAR HEMOGLOBIN 31.6 pg (25-34); MEAN CORPUSCULAR HGB CONC 34.6 g/dl (32-36); MEAN PLATELET VOLUME 9.5 fL (7.4-10.4); PLATELET COUNT 170 K/uL (130-400); RED BLOOD COUNT 3.83 M/uL (4.7-6.1); WHITE BLOOD COUNT 3.12 K/uL (4.8-10.8)
== END ==
LOC: C.LABFOXMH 11:52
PROVIDERS: ATTEND Internal Medicine
DX: D64.9 Anemia, unspecified (principal)

== ENCOUNTER → 2017-03-01 | Outpatient (CLI) | payer OTHER, BC ==
[2017-03-01 19:40] LABS: HEMATOCRIT 36.3 % (42-52); MEAN CORPUSCULAR HEMOGLOBIN 30.1 pg (25-34); MEAN CORPUSCULAR HGB CONC 33.1 g/dl (32-36); MEAN PLATELET VOLUME 8.6 fL (7.4-10.4); PLATELET COUNT 155 K/uL (130-400); RED BLOOD COUNT 3.99 M/uL (4.7-6.1); WHITE BLOOD COUNT 6.48 K/uL (4.8-10.8)
== END | disposition home or self-care (01) ==
LOC: C.LAB 19:22
PROVIDERS: ATTEND Internal Medicine
DX: D64.9 Anemia, unspecified (principal)

== ENCOUNTER → 2017-03-08 | Outpatient (CLI) | payer OTHER, BC ==
[2017-03-08 16:15] LABS: BLOOD UREA NITROGEN 14 mg/dl (7-18); BUN/CREATININE RATIO 14.5 (10-20); CALCIUM 8.6 mg/dl (8.5-10.1); CARBON DIOXIDE 27 mmol/L (21-32); CHLORIDE 97 mmol/L (98-107); GLUCOSE 122 mg/dl (70-99); MAGNESIUM 1.9 mg/dl (1.8-2.4); POTASSIUM 4.2 mmol/L (3.5-5.1); SODIUM 130 mmol/L (136-145)
== END | disposition home or self-care (01) ==
LOC: C.LABFOXMH 15:49
PROVIDERS: ATTEND Internal Medicine Hospice and Palliative Medicine
DX: M62.838 Other muscle spasm (principal)

== ENCOUNTER 2017-03-11 14:10 | Inpatient (IN) | payer OTHER, BC ==
[~2017-03-11] VITALS: Ht 180.3 cm; Wt 79.6 kg
[~2017-03-11 14:10] MED LIST changes: -CLC100X PO; -ECHI400C11 PO; -FLM4 PO; -FURO-85 PO; -Fibersource 1.2 Cal PEG; -LEVE500T13 PO; -LEVO1TAB35 PO; -LVNIS80 SQ; -WHEAPOW PO; -XRL20 PO
--- NOTE | 2017-03-11 14:42 | DIAGNOSTIC IMAGING REPORT ---
CHEST ONE VIEW PORTABLE CLINICAL HISTORY: Respiratory distress COMPARISON STUDY: 01/18/2017 FINDINGS: The heart remains enlarged. There is no failure. There is no focal pulmonary consolidation. There are no pleural effusions. 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 No acute findings. Electronically signed by: Marty Bob M.D. 03/11/2017 2:40 PM Dictated Date/Time: 03/11/2017 2:39 PM
[2017-03-11] MEDS ORDERED: CLC100X PO ×2 (14:45)
[2017-03-11] MEDS ORDERED: WHEAPOW PO ×2 (14:52)
[2017-03-11] MEDS ORDERED: ECHI400C11 PO ×2 (14:52)
[2017-03-11] MEDS ORDERED: LEVO1TAB35 PO (14:52)
[2017-03-11] MEDS ORDERED: RAPID SEQUENCE INDUCTION BAG ONE (15:09)
[2017-03-11 15:41] LABS: VEN BLD GAS O2 SATURATION 80.5 %; VEN BLOOD GAS BASE EXCESS -11.8 mEq/L
--- NOTE | 2017-03-11 15:44 | DIAGNOSTIC IMAGING REPORT ---
CT HEAD WITHOUT CONTRAST (CT) CLINICAL HISTORY: G, altered mental status. COMPARISON STUDY: 01/10/2016 TECHNIQUE: Axial CT of the brain is performed from the vertex to the skull base. IV contrast was not administered for this examination. A dose lowering technique was utilized adhering to the principles of ALARA. CT DOSE: FINDINGS: No intra or extra-axial mass lesions are visualized. There is no CT evidence of acute cortical infarction. There is no evidence of midline shift. There is no acute hemorrhage. No calvarial fractures are visualized. There are patchy white matter hypodensities likely on a small vessel basis. There is no evidence of pathologic ventricular dilatation. There is no evidence of acute sinusitis IMPRESSION: No acute intracranial findings Electronically signed by: Marty Bob M.D. 03/11/2017 3:43 PM Dictated Date/Time: 03/11/2017 3:42 PM
[2017-03-11 15:45] LABS: ISTAT CREATININE 0.9 mg/dl (0.6-1.3); ISTAT HEMOGLOBIN 12.2 g/dl (14.0-18.0); ISTAT IONIZED CALCIUM 1.17 mmol/l (1.12-1.32)
[2017-03-11] MEDS ORDERED: OPTIRAY 320 IV PRN (15:45)
--- NOTE | 2017-03-11 15:48 | DIAGNOSTIC IMAGING REPORT ---
CT ANGIOGRAM OF THE CHEST CLINICAL HISTORY: Shortness of breath. Possible acute pulmonary embolism. COMPARISON STUDY: Chest x-ray dated 03/11/2017 TECHNIQUE: Following the IV administration of 117 mL of Optiray-320, CT angiogram of the thorax was performed from the thoracic inlet to the lung bases utilizing the pulmonary embolus protocol. Images are reviewed in the axial, sagittal, and coronal planes. IV contrast was administered without complication. MIP imaging was performed. A dose lowering technique was utilized adhering to the principles of ALARA. CT DOSE: 2176.20 mGy.cm FINDINGS: There is a partially visualized 3.7 mm left renal hypodensity, likely representing a cyst. There is a hiatal hernia. The heart is enlarged. No pathologically enlarged axillary mediastinal or hilar lymph nodes were visualized. 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 There are coronary artery calcifications present. Pulmonary artery evaluation is limited due to respiratory motion artifact. No central emboli are delineated. No pleural effusions are visualized. There is respiratory motion artifact. There is dependent atelectatic change. IMPRESSION: 1. Study compromised due to respiratory motion artifact 2. No central pulmonary emboli identified. If there is persistent strong clinical concern of acute pulmonary embolism, correlation with serial leg ultrasonography should be obtained 3. Cardiomegaly 4. 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 03/11/2017 3:47 PM Dictated Date/Time: 03/11/2017 3:43 PM
[2017-03-11] MEDS ORDERED: SODIUM CHLORIDE 0.9% 1000ML 1,000 ML IV STA (15:53)
[2017-03-11 16:00] VITALS: PULSE 73; O2SAT 95
[2017-03-11 16:00] LABS: BASO % 0.1 %; BASO ABS # 0.01 K/uL (0-0.2); COMPLETE YES; EOS % 0.1 %; HEMATOCRIT 33.7 % (42-52); IG% 0.8 %; LYMPH % 4.7 %; LYMPH ABS # 0.36 K/uL (1.2-3.4); MEAN CELL VOLUME 90.3 fL (80-100); MEAN CORPUSCULAR HEMOGLOBIN 31.4 pg (25-34); MEAN CORPUSCULAR HGB CONC 34.7 g/dl (32-36); MEAN PLATELET VOLUME 8.7 fL (7.4-10.4); MONO % 8.5 %; NEUT % 85.8 %; PLATELET COUNT 191 K/uL (130-400); RED BLOOD COUNT 3.73 M/uL (4.7-6.1); WHITE BLOOD COUNT 7.66 K/uL (4.8-10.8)
[2017-03-11] MEDS ORDERED: CEFTRIAXONE SOD INJ 2,000 MG in DEXTROSE 5% 50ML 50 ML IV STA (16:12)
[2017-03-11 16:14] LABS: INR 1.4 (0.9-1.1); PROTHROMBIN TIME (PATIENT) 14.7 SECONDS (9.0-12.0)
[2017-03-11 16:18] LABS: ALT/SGPT 27 U/L (12-78); AST/SGOT 40 U/L (15-37); BLOOD UREA NITROGEN 14 mg/dl (7-18); BUN/CREATININE RATIO 11.5 (10-20); CALCIUM 8.6 mg/dl (8.5-10.1); CARBON DIOXIDE 18 mmol/L (21-32); CHLORIDE 97 mmol/L (98-107); GLUCOSE 128 mg/dl (70-99); POTASSIUM 3.9 mmol/L (3.5-5.1); SODIUM 129 mmol/L (136-145)
[2017-03-11 16:23] LABS: ALB/GLOB RATIO 1.3 (0.9-2); ALKALINE PHOSPHATASE 116 U/L (45-117); CKMB/CK RATIO 2.1 (0-3.0)
[2017-03-11 16:25] LABS: URINE APPEARANCE CLEAR (CLEAR); URINE BILIRUBIN NEG (NEG); URINE COLOR YELLOW; URINE NITRITE NEG (NEG); URINE PH 5.5 (4.5-7.5); URINE SPECIFIC GRAVITY 1.023 (1.000-1.030); UROBILINOGEN NEG (NEG); ZZURINE CULT IF INDIC CATH NO
[2017-03-11 16:26] LABS: MANUAL MICROSCOPIC REQUIRED? NO; REVIEW REQ? NO
--- NOTE | 2017-03-11 16:35 | EMERGENCY ROOM VISIT NOTE ---
History Report prepared by Ruby: Misael Gruber Under the Supervision of: Dr. Simón Calzada D.O. First contact with patient: 14:13 Chief Complaint: RESPIRATORY PROBLEMS Stated Complaint: LETHARGIC History of Present Illness The patient is a 86 year old male who presents to the Emergency Room with complaints of persistent generalized weakness beginning today. He also complains of shortness of breath and fatigue. He states that he is too weak to walk. The patient states that his symptoms began somewhat suddenly. He states that he has a vaccination for pneumonia yearly. He denies any coughing or leg swelling. The patient is on blood thinning medication for A-fib. He does not typically wear supplemental oxygen at home. He states that he has had cold-like symptoms recently for which he is currently taking Zithromax. The patient states that he has had similar symptoms in the past associated with pneumonia. Source of History: patient Onset: Today Position: other (generalized) Quality: other (weakness) Timing: other (persistent) Associated Symptoms: + SOB, + fatigue, No cough Note: The patient denies any leg swelling. Review of Systems See HPI for pertinent positives & negatives. A total of 10 systems reviewed and were otherwise negative. Past Medical & Surgical Medical Problems: (1) Acute bronchitis (2) Anemia (3) Arm paresthesia, right (4) Arm paresthesia, right (5) GERD (gastroesophageal reflux disease) (6) HTN (hypertension) (7) Hyperlipidemia (8) URI (upper respiratory infection) Surgical Problems: (1) H/O hernia repair Family History GI malignancy Social History Smoking Status: Never Smoker Alcohol Use: none Drug Use: none Marital Status: Occupation Status: retired Current/Historical Medications Scheduled Atorvastatin (Lipitor), 40 MG PO QPM Cetirizine (Zyrtec), 10 MG PO QPM Docusate Sodium (Docusate Sodium), 100 MG PO BID Ferrous Sulfate (Kp Ferrous Sulfate), 325 MG PO BID Finasteride (Proscar), 5 MG PO QPM Hydrocortisone 2.5% (Rectal) (Anusol-Hc 2.5%), 1 APPLN TOP BID Levofloxacin (Levaquin), 750 MG PO DAILY Lisinopril (Zestril), 2.5 MG PO QAM Magnesium Oxide (Mag-Ox), 400 MG PO QAM Metoprolol Succinate (Toprol Xl), 25 MG PO QPM Pantoprazole (Protonix), 40 MG PO BID Rivaroxaban (Xarelto), 15 MG PO QPM Wheat Dextrin (Benefiber Drink Mix), 2 TSP PO DAILY Scheduled PRN Dextromethorphan-Guaifenesin (Guaifenesin Dm), 10 ML PO Q4H PRN for Cough Echinacea (Echinacea), 400 MG PO TID PRN for URI Allergies Coded Allergies: No Known Allergies (Verified , 03/11/17) Physical Exam Vital Signs Date Time Temp Pulse Resp B/P (MAP) Pulse Ox O2 Delivery O2 Flow Rate FiO2 03/11/17 16:36 37.3 70 16 138/87 98 BiPAP 50 03/11/17 16:00 73 95 50 03/11/17 15:49 74 18 149/87 100 BiPAP 50 03/11/17 14:29 94 Nasal Cannula 4.0 03/11/17 14:19 93 Nasal Cannula 4.0 03/11/17 14:16 74 14 113/66 84 Room Air 03/11/17 14:16 71 03/11/17 14:14 85 Room Air Physical Exam GENERAL: Patient is awake, alert, and in no acute distress. Patient is mildly anxious and somewhat uncomfortable appearing. EYES: The conjunctivae are clear. The pupils are round and reactive. EARS, NOSE, MOUTH AND THROAT: The nose is without any evidence of any deformity. Mucous membranes are moist tongue is midline NECK: The neck is nontender and supple. RESPIRATORY: Diminished with scattered rales in all lung muhammad. CARDIOVASCULAR: Regular rate and rhythm noted. No definite murmur. GASTROINTESTINAL: The abdomen is soft. Bowel sounds are present in all quadrants. Abdomen is nontender PELVIS: The Pelvis is stable. No tenderness to palpation is noted. BACK: No midline tenderness or or step-off noted range of motion in flexion extension as well as rotation no signs of muscle spasm noted MUSCULOSKELETAL/EXTREMITIES: There is no evidence of gross deformity full range of motion is noted in the hips and shoulders SKIN: There is no obvious evidence of any rash. There are no petechiae, pallor or cyanosis noted. NEUROLOGIC: Patient is awake alert and oriented x3. Medical Decision & Procedures ER Provider Diagnostic Interpretation: Radiology results as stated below per my review and radiologist interpretation: CT ANGIOGRAM OF THE CHEST FINDINGS: There is a partially visualized 3.7 mm left renal hypodensity, likely representing a cyst. There is a hiatal hernia. The heart is enlarged. No pathologically enlarged axillary mediastinal or hilar lymph nodes were visualized. 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 There are coronary artery calcifications present. Pulmonary artery evaluation is limited due to respiratory motion artifact. No central emboli are delineated. No pleural effusions are visualized. There is respiratory motion artifact. There is dependent atelectatic change. IMPRESSION: 1. Study compromised due to respiratory motion artifact 2. No central pulmonary emboli identified. If there is persistent strong clinical concern of acute pulmonary embolism, correlation with serial leg ultrasonography should be obtained 3. Cardiomegaly 4. 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 03/11/2017 3:[address] HEAD WITHOUT CONTRAST (CT) FINDINGS: No intra or extra-axial mass lesions are visualized. There is no CT evidence of acute cortical infarction. There is no evidence of midline shift. There is no acute hemorrhage. No calvarial fractures are visualized. There are patchy white matter hypodensities likely on a small vessel basis. There is no evidence of pathologic ventricular dilatation. There is no evidence of acute sinusitis IMPRESSION: No acute intracranial findings Electronically signed by: Marty Bob M.D. 03/11/2017 3:43 PM CHEST ONE VIEW PORTABLE FINDINGS: The heart remains enlarged. There is no failure. There is no focal pulmonary consolidation. There are no pleural effusions. 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 No acute findings. Electronically signed by: Marty Bob M.D. 03/11/2017 2:40 PM Laboratory Results 03/11/17 15:46 Red Blood Count 3.73, Mean Corpuscular Volume 90.3, Mean Corpuscular Hemoglobin 31.4, Mean Corpuscular Hemoglobin Concent 34.7, Mean Platelet Volume 8.7, Neutrophils (%) (Auto) 85.8, Lymphocytes (%) (Auto) 4.7, Monocytes (%) (Auto) 8.5, Eosinophils (%) (Auto) 0.1, Basophils (%) (Auto) 0.1, Neutrophils # (Auto) 6.57, Lymphocytes # (Auto) 0.36, Monocytes # (Auto) 0.65, Eosinophils # (Auto) 0.01, Basophils # (Auto) 0.01 03/11/17 15:46 Test 03/11/17 15:04 03/11/17 15:27 03/11/17 15:29 03/11/17 15:32 Bedside Glucose 132 mg/dl (70-99) Bedside Lactic Acid Venous 13.20 mmol/L (0.90-1.70) Venous Blood pH 7.26 (7.36-7.41) Venous Blood Partial Pressure CO2 33 mmHg (38.0-50.0) Venous Blood Partial Pressure O2 55 mmHg Venous Blood HCO3 14 mmol/L Venous Blood Oxygen Saturation 80.5 % Venous Blood Base Excess -11.8 mEq/L Bedside Hemoglobin 12.2 g/dl (14.0-18.0) Bedside Hematocrit 36 % (42-52) Bedside Sodium 130 mEq/L (135-144) Bedside Potassium 3.9 mEq/L (3.3-5.0) Bedside Chloride 95 mEq/L (101-112) Bedside Total CO2 13 mEq/l (24-31) Bedside Blood Urea Nitrogen 15 mg/dl (7-18) Bedside Creatinine 0.9 mg/dl (0.6-1.3) Bedside Glucose (other) 135 mg/dl (70-99) Bedside Ionized Calcium (Kirby) 1.17 mmol/l (1.12-1.32) Test 03/11/17 15:46 03/11/17 16:00 White Blood Count 7.66 K/uL (4.8-10.8) Red Blood Count 3.73 M/uL (4.7-6.1) Hemoglobin 11.7 g/dL (14.0-18.0) Hematocrit 33.7 % (42-52) Mean Corpuscular Volume 90.3 fL (80-100) Mean Corpuscular Hemoglobin 31.4 pg (25-34) Mean Corpuscular Hemoglobin Concent 34.7 g/dl (32-36) Platelet Count 191 K/uL (130-400) Mean Platelet Volume 8.7 fL (7.4-10.4) Neutrophils (%) (Auto) 85.8 % Lymphocytes (%) (Auto) 4.7 % Monocytes (%) (Auto) 8.5 % Eosinophils (%) (Auto) 0.1 % Basophils (%) (Auto) 0.1 % Neutrophils # (Auto) 6.57 K/uL (1.4-6.5) Lymphocytes # (Auto) 0.36 K/uL (1.2-3.4) Monocytes # (Auto) 0.65 K/uL (0.11-0.59) Eosinophils # (Auto) 0.01 K/uL (0-0.5) Basophils # (Auto) 0.01 K/uL (0-0.2) RDW Standard Deviation 47.7 fL (36.4-46.3) RDW Coefficient of Variation 14.4 % (11.5-14.5) Immature Granulocyte % (Auto) 0.8 % Immature Granulocyte # (Auto) 0.06 K/uL (0.00-0.02) Prothrombin Time 14.7 SECONDS (9.0-12.0) Prothromb Time International Ratio 1.4 (0.9-1.1) Activated Partial Thromboplast Time 26.2 SECONDS (21.0-31.0) Partial Thromboplastin Ratio 1.0 D-Dimer 5240 ug/L FEU (0-500) Anion Gap 14.0 mmol/L (3-11) Estimated GFR () 63.1 Estimated GFR (Non- 54.4 BUN/Creatinine Ratio 11.5 (10-20) Calcium Level 8.6 mg/dl (8.5-10.1) Total Bilirubin 0.9 mg/dl (0.2-1) Aspartate Amino Transf (AST/SGOT) 40 U/L (15-37) Alanine Aminotransferase (ALT/SGPT) 27 U/L (12-78) Alkaline Phosphatase 116 U/L (45-117) Total Creatine Kinase 111 U/L (39-308) Creatine Kinase MB 2.3 ng/ml (0.5-3.6) Creatine Kinase MB Ratio 2.1 (0-3.0) Troponin I < 0.015 ng/ml (0-0.045) Pro-B-Type Natriuretic Peptide 3294 pg/ml (0-1800) Total Protein 6.2 gm/dl (6.4-8.2) Albumin 3.5 gm/dl (3.4-5.0) Globulin 2.7 gm/dl (2.5-4.0) Albumin/Globulin Ratio 1.3 (0.9-2) Thyroid Stimulating Hormone (TSH) 2.340 uIu/ml (0.300-4.500) Urine Color YELLOW Urine Appearance CLEAR (CLEAR) Urine pH 5.5 (4.5-7.5) Urine Specific [place] 1.023 (1.000-1.030) Urine Protein TRACE (NEG) Urine Glucose (UA) NEG (NEG) Urine Ketones NEG (NEG) Urine Occult Blood TRACE (NEG) Urine Nitrite NEG (NEG) Urine Bilirubin NEG (NEG) Urine Urobilinogen NEG (NEG) Urine Leukocyte Esterase NEG (NEG) Urine WBC (Auto) 1-5 /hpf (0-5) Urine RBC (Auto) 5-10 /hpf (0-4) Urine Hyaline Casts (Auto) 1-5 /lpf (0-5) Urine Epithelial Cells (Auto) 10-20 /lpf (0-5) Urine Bacteria (Auto) NEG (NEG) Laboratory results per my review. Medications Administered Medications (Trade) Dose Ordered Sig/Tanesha Route Start Time Stop Time Status Last Admin Dose Admin Sodium Chloride 1,000 ml @ 999 mls/hr Q1H1M STAT IV 03/11/17 15:53 03/11/17 16:53 DC 03/11/17 15:53 999 MLS/HR Ceftriaxone Sodium 2000 mg/ Dextrose 70 ml @ 100 mls/hr ONE STAT IV 03/11/17 16:12 03/11/17 16:53 DC 03/11/17 16:36 100 MLS/HR ECG Indication: weakness Rate (beats per minute): 86 Rhythm: atrial fibrillation (with underlying paced rhythm) Findings: other ([place] beats present) ED Course 1419: The patient was evaluated in room C8. A complete history and physical examination were performed. 1502: Nursing staff informed me that the patient has become unresponsive. He was reported to have a fixed rightward stare with foaming at the mouth. 1507: I spoke with the patient's family at bedside. The patient was moved to room A1. 1530: The patient's daughter, his POA, was contacted. She states that the patient has had similar symptoms in the past associated with UTI. She states that the patient is DNR/DNI. 1553: Ordered NSS 1,000 ml @ 999 mls/hr IV. 1612: Ordered Ceftriaxone Sodium 2000 mg/Dextrose 70 mL @ 100 mL/hr IV. 1622: Upon reevaluation, the patient is resting. I discussed results and treatment plan with his family. They verbalize agreement and understanding. I spoke with Dr. Muñiz of the [facility] Hospitalist Service. The patient will be evaluated for further management and care. 1730: I witnessed the patient have an episode of tonic-clonic seizure-like activity. Medical Decision Differential diagnosis: Etiologies such as metabolic, infection, hypo/hyperglycemia, electrolyte abnormalities, cardiac sources, intracerebral event, toxicologic, neurologic, as well as others were entertained. Nursing notes reviewed. Additional history is obtained from the patient's family. Additional history is obtained from the prehospital personnel. The patient is an 86-year-old male who presented to the emergency department for an evaluation of cough. The patient states that he's been having problems with cough and difficulty breathing was started on antibiotic for presumed pneumonia. The patient was found have hypoxia and abnormal lung sounds initially. When he first presented to the emergency Department I thought his condition could be consistent with congestive heart failure because he had Rales throughout his lungs and has cardiomegaly however his chest x-ray did not reveal any definite volume overload. The patient had an episode while he was in the emergency department where he became obtunded and may have had a seizure all of this is not clear. The patient currently has a history of atrial fibrillation and takes her alto. He states he did take his medication this morning. His presentation could also be consistent with stroke but this episode started to resolve spontaneously. I'm unsure if this are present the seizure and what I witnessed afterwards could represent a postictal phase. He was placed on BiPAP which seemed to improve his symptoms. I discussed the patient's laboratory radiographic studies with him and his family members. I also discussed his case with the on-call [facility] hospitalist. They've agreed to evaluate the patient in the emergency department for further management and disposition. We discussed other interventions with the family members as well as the patient. A review of his previous visits as well as discussion with his other family member states that he was a DO NOT RESUSCITATE and would like to continue this doesn't a while he is in the emergency department at this time. Consults Time Called: 161 Consulting Physician: Dr. Muñiz [facility] Returned Call: [phone] I discussed the patient's case with Dr. Muñiz. The patient will be evaluated for further management. Impression Primary Impression: Respiratory failure Additional Impressions: Hypoxia Altered mental status Lactic acidosis Weakness Seizure Critical Care I have personally spent greater than 45 minutes of critical care time in the direct management of this patient. This includes bedside care, interpretation of diagnostic studies, and testing, discussion with consultants, patient, and family members, and other required patient management activities. This 45 minutes is in excess of all separately billable procedures. Scribe Attestation The scribe's documentation has been prepared under my direction and personally reviewed by me in its entirety. I confirm that the note above accurately reflects all work, treatment, procedures, and medical decision making performed by me. Departure Information Dispostion Being Evaluated By Hospitalist Referrals Tania Kowalski (PCP) Patient Instructions My [facility] Problem Qualifiers Primary Impression: Respiratory failure Chronicity: acute Respiratory failure complication: hypoxia Qualified Codes : J96.01 - Acute respiratory failure with hypoxia Additional Impressions: Altered mental status Altered mental status type: unspecified Qualified Codes: R41.82 - Altered mental status, unspecified
[2017-03-11] MEDS ORDERED: ONDANSETRON INJ 2 MG/ML 2 ML VIAL IV PRN (16:45)
[2017-03-11] MEDS ORDERED: ACETAMINOPHEN 325 MG TAB PO PRN (16:45)
[2017-03-11 17:14] VITALS: Ht 180.3 cm; Wt 79.6 kg
--- NOTE | 2017-03-11 17:16 | History and Physical ---
History & Physical Date & Time of Service: Mar 11, 2017 at 16:58 Chief Complaint: Lethargic Primary Care Physician: Wesley Gabriel M.D. History of Present Illness Source: patient Pt is a 86 year old male resident of [facility] who presents to the ER with complaints of persistent generalized weakness, cough beginning today. Pt is a poor historian and most hx obtained per son who reports pt has been "erratic" all week making financial decisions that were not common for him. He also reports pt has been having a nonproductive cough and has been treated for a PNA for past 2 days. Pt currently on BiPAP and reports having burning sensation upon urination. He has a hx of atrial fibrillation and states compliance with his xarelto. Family reports previous episodes of confusion in the past with pneumonia as well. Pt denies any fevers, chills, chest pain, N/V/D. Past Medical/Surgical History Medical Problems: (1) Acute bronchitis Status: Resolved (2) Arm paresthesia, right Status: Resolved (3) Arm paresthesia, right Status: Resolved (4) GERD (gastroesophageal reflux disease) Status: Chronic (5) HTN (hypertension) Status: Chronic (6) Hyperlipidemia Status: Chronic (7) URI (upper respiratory infection) Status: Resolved Surgical Problems: (1) H/O hernia repair Status: Resolved Family History GI malignancy Social History Smoking Status: Never Smoker Drug Use: none Marital Status: Housing status: other Occupational Status: retired Multi-Drug Resistant Organisms History of MDRO: No Allergies Coded Allergies: No Known Allergies (Verified , 03/11/17) Home Medications Scheduled Atorvastatin (Lipitor), 40 MG PO QPM Cetirizine (Zyrtec), 10 MG PO QPM Docusate Sodium (Docusate Sodium), 100 MG PO BID Ferrous Sulfate (Kp Ferrous Sulfate), 325 MG PO BID Finasteride (Proscar), 5 MG PO QPM Hydrocortisone 2.5% (Rectal) (Anusol-Hc 2.5%), 1 APPLN TOP BID Levofloxacin (Levaquin), 750 MG PO DAILY Lisinopril (Zestril), 2.5 MG PO QAM Magnesium Oxide (Mag-Ox), 400 MG PO QAM Metoprolol Succinate (Toprol Xl), 25 MG PO QPM Pantoprazole (Protonix), 40 MG PO BID Rivaroxaban (Xarelto), 15 MG PO QPM Wheat Dextrin (Benefiber Drink Mix), 2 TSP PO DAILY Scheduled PRN Dextromethorphan-Guaifenesin (Guaifenesin Dm), 10 ML PO Q4H PRN for Cough Echinacea (Echinacea), 400 MG PO TID PRN for URI Review of Systems Constitutional: No fever, No chills, No sweats, No weakness ENT: No hearing loss, No unusual epistaxis, No nasal symptoms, No sore throat Respiratory: + cough, + shortness of breath, No sputum, No wheezing, No dyspnea on exertion, No dyspnea at rest Cardiovascular: No chest pain, No orthopnea, No PND, No edema Abdomen: No pain, No nausea, No vomiting, No diarrhea Musculoskeletal: No joint pain, No muscle pain, No swelling, No calf pain Genitourinary - Male: + dysuria, No hematuria, No urinary frequency, No urinary urgency Neurologic: No memory loss, No weakness, No numbness/tingling Psychiatric: No depression symptoms, No anhedonism, No anxiety, No insomnia Endocrine: No fatigue, No excessive thirst, No excessive urination Integumentary: No rash, No itch Physical Exam Vital Signs Date Time Temp Pulse Resp B/P (MAP) Pulse Ox O2 Delivery O2 Flow Rate FiO2 03/11/17 16:36 37.3 70 16 138/87 98 BiPAP 50 03/11/17 16:00 73 95 50 03/11/17 15:49 74 18 149/87 100 BiPAP 50 03/11/17 14:29 94 Nasal Cannula 4.0 03/11/17 14:19 93 Nasal Cannula 4.0 03/11/17 14:16 74 14 113/66 84 Room Air 03/11/17 14:16 71 03/11/17 14:14 85 Room Air General Appearance: WD/WN, no apparent distress Eyes: normal inspection, PERRL, EOMI, sclerae normal Neck: supple, no adenopathy, thyroid normal, no JVD Respiratory/Chest: chest non-tender, + decreased breath sounds, + wheezing Cardiovascular: no edema, no gallop, no JVD Abdomen/GI: normal bowel sounds, non tender, soft, no organomegaly Extremities/Musculoskelatal: normal inspection, no calf tenderness, normal capillary refill Neurologic/Psych: no motor/sensory deficits, alert, normal mood/affect Skin: normal color, warm/dry, no rash Lymphatic: no adenopathy Diagnostics Laboratory Results Results Past 24 Hours Test 03/11/17 15:04 03/11/17 15:27 03/11/17 15:29 03/11/17 15:32 Range/Units Bedside Glucose 132 70-99 mg/dl Bedside Lactic Acid Venous 13.20 0.90-1.70 mmol/L Venous Blood pH 7.26 7.36-7.41 Venous Blood Partial Pressure CO2 33 38.0-50.0 mmHg Venous Blood Partial Pressure O2 55 mmHg Venous Blood HCO3 14 mmol/L Venous Blood Oxygen Saturation 80.5 % Venous Blood Base Excess -11.8 mEq/L Bedside Hemoglobin 12.2 14.0-18.0 g/dl Bedside Hematocrit 36 42-52 % Bedside Sodium 130 135-144 mEq/L Bedside Potassium 3.9 3.3-5.0 mEq/L Bedside Chloride 95 101-112 mEq/L Bedside Total CO2 13 24-31 mEq/l Anion Gap 26.0 16-25 mmol/L Bedside Blood Urea Nitrogen 15 7-18 mg/dl Bedside Creatinine 0.9 0.6-1.3 mg/dl Bedside Glucose (other) 135 70-99 mg/dl Bedside Ionized Calcium (Kirby) 1.17 1.12-1.32 mmol/l Test 03/11/17 15:46 03/11/17 16:00 03/11/17 16:48 Range/Units White Blood Count 7.66 4.8-10.8 K/uL Red Blood Count 3.73 4.7-6.1 M/uL Hemoglobin 11.7 14.0-18.0 g/dL Hematocrit 33.7 42-52 % Mean Corpuscular Volume 90.3 80-100 fL Mean Corpuscular Hemoglobin 31.4 25-34 pg Mean Corpuscular Hemoglobin Concent 34.7 32-36 g/dl Platelet Count 191 130-400 K/uL Mean Platelet Volume 8.7 7.4-10.4 fL Neutrophils (%) (Auto) 85.8 % Lymphocytes (%) (Auto) 4.7 % Monocytes (%) (Auto) 8.5 % Eosinophils (%) (Auto) 0.1 % Basophils (%) (Auto) 0.1 % Neutrophils # (Auto) 6.57 1.4-6.5 K/uL Lymphocytes # (Auto) 0.36 1.2-3.4 K/uL Monocytes # (Auto) 0.65 0.11-0.59 K/uL Eosinophils # (Auto) 0.01 0-0.5 K/uL Basophils # (Auto) 0.01 0-0.2 K/uL RDW Standard Deviation 47.7 36.4-46.3 fL RDW Coefficient of Variation 14.4 11.5-14.5 % Immature Granulocyte % (Auto) 0.8 % Immature Granulocyte # (Auto) 0.06 0.00-0.02 K/uL Prothrombin Time 14.7 9.0-12.0 SECONDS Prothromb Time International Ratio 1.4 0.9-1.1 Activated Partial Thromboplast Time 26.2 21.0-31.0 SECONDS Partial Thromboplastin Ratio 1.0 D-Dimer 5240 0-500 ug/L FEU Sodium Level 129 136-145 mmol/L Potassium Level 3.9 3.5-5.1 mmol/L Chloride Level 97 98-107 mmol/L Carbon Dioxide Level 18 21-32 mmol/L Anion Gap 14.0 3-11 mmol/L Blood Urea Nitrogen 14 7-18 mg/dl Creatinine 1.20 0.60-1.40 mg/dl Estimated GFR () 63.1 Estimated GFR (Non- 54.4 BUN/Creatinine Ratio 11.5 10-20 Random Glucose 128 70-99 mg/dl Calcium Level 8.6 8.5-10.1 mg/dl Total Bilirubin 0.9 0.2-1 mg/dl Aspartate Amino Transf (AST/SGOT) 40 15-37 U/L Alanine Aminotransferase (ALT/SGPT) 27 12-78 U/L Alkaline Phosphatase 116 45-117 U/L Total Creatine Kinase 111 39-308 U/L Creatine Kinase MB 2.3 0.5-3.6 ng/ml Creatine Kinase MB Ratio 2.1 0-3.0 Troponin I < 0.015 0-0.045 ng/ml Pro-B-Type Natriuretic Peptide 3294 0-1800 pg/ml Total Protein 6.2 6.4-8.2 gm/dl Albumin 3.5 3.4-5.0 gm/dl Globulin 2.7 2.5-4.0 gm/dl Albumin/Globulin Ratio 1.3 0.9-2 Urine Color YELLOW Urine Appearance CLEAR CLEAR Urine pH 5.5 4.5-7.5 Urine Specific [place] 1.023 1.000-1.030 Urine Protein TRACE NEG Urine Glucose (UA) NEG NEG Urine Ketones NEG NEG Urine Occult Blood TRACE NEG Urine Nitrite NEG NEG Urine Bilirubin NEG NEG Urine Urobilinogen NEG NEG Urine Leukocyte Esterase NEG NEG Urine WBC (Auto) 1-5 0-5 /hpf Urine RBC (Auto) 5-10 0-4 /hpf Urine Hyaline Casts (Auto) 1-5 0-5 /lpf Urine Epithelial Cells (Auto) 10-20 0-5 /lpf Urine Bacteria (Auto) NEG NEG Microbiology Results 03/11/17 Blood Culture, Received Pending 03/11/17 Blood Culture, Received Pending Impression Assessment and Plan 86 yo male sent to the ER from [facility] for worsening cough and confusion Encephalopathy likely multifactorial in nature. Likely element of dementia in addition to infection. Pt reports being treated for a PNA for past 2 days with levaquin. No evidence of consolidation or PE with CXR and CTA. Check MRSA nares and flu at this time. Start on rocephin, azithromycin, and vanc at this time. Repeat CXR in AM. Per ER staff, pt had a gasping episode where confusion worsened. ?Seizure noted. CT head neg, will obtain EEG and MRI if pacemaker compatible. Will also check ECHO due to hx of afib. Pt will be admitted to inpatient tele at this time. Anemia at baseline, likely anemia of chronic disease in addition to iron deficiency A. fib rate controlled, continue Toprol-XL 25 mg daily, cont Xarelto at this time. ECHO to be completed SS syndrome-s/p pacemaker-noted History of GERD/dysphagia status post dilation, cont PPI Hypertension stable, continue lisinopril 2.5 mg daily Hyperlipidemia, continue Lipitor 40 mg daily DVT prophylaxis with xarelto CODE STATUS LEVEL V DO NO RESUSCITATE VTE Prophylaxis VTE Risk Assessment Done? Y/N: Yes Risk Level: Moderate
[2017-03-11] MEDS ORDERED: LORAZEPAM 2 MG/ML 1 ML VIAL ONE (17:29)
[2017-03-11] MEDS ORDERED: LEVETIRACETAM IV 2,000 MG in DEXTROSE 5% 250ML 250 ML IV ONE (17:45)
[2017-03-11 18:18] VITALS: BP 150/89; PULSE 64; TEMP 36.7; O2SAT 96
[2017-03-11] MEDS ORDERED: VANCOMYCIN CONSULT ACTIVE PRN (18:45)
[2017-03-11] MEDS ORDERED: VANCOMYCIN INJ 2,000 MG in SODIUM CHLORIDE 0.9% 500ML 500 ML IV SCH (19:00)
[2017-03-11] MEDS: SODIUM CHLORIDE 0.9% 1000ML 1,000 ML IV SCH (19:03)
[2017-03-11] MEDS ORDERED: AZITHROMYCIN IV 500 MG in DEXTROSE 5% 250ML 250 ML IV SCH (20:00)
--- NOTE | 2017-03-11 20:03 | Pharmacy Progress Note ---
Pharmacy Antibiotic Consult Date of Service: Mar 11, 2017. Pharmacy Dosing Scope Pharmacy is consulted to initiate vancomycin IV dosing therapy, order appropriate labs and adjust drug dose/frequency. Subjective The patient is a 86 year old male admitted on Mar 11, 2017 at 18:18 with hypoxia , mental status change. Had 2 days po Levaquin but got worse. Objective Height (Feet): 5 Height (Inches): 11.00 Weight (Kilograms): 80.500 Lab Results (24hrs): Test 03/11/17 15:04 03/11/17 15:27 03/11/17 15:29 03/11/17 15:32 Bedside Glucose 132 mg/dl (70-99) Bedside Lactic Acid Venous 13.20 mmol/L (0.90-1.70) Venous Blood pH 7.26 (7.36-7.41) Venous Blood Partial Pressure CO2 33 mmHg (38.0-50.0) Venous Blood Partial Pressure O2 55 mmHg Venous Blood HCO3 14 mmol/L Venous Blood Oxygen Saturation 80.5 % Venous Blood Base Excess -11.8 mEq/L Bedside Hemoglobin 12.2 g/dl (14.0-18.0) Bedside Hematocrit 36 % (42-52) Bedside Sodium 130 mEq/L (135-144) Bedside Potassium 3.9 mEq/L (3.3-5.0) Bedside Chloride 95 mEq/L (101-112) Bedside Total CO2 13 mEq/l (24-31) Anion Gap 26.0 mmol/L (16-25) Bedside Blood Urea Nitrogen 15 mg/dl (7-18) Bedside Creatinine 0.9 mg/dl (0.6-1.3) Bedside Glucose (other) 135 mg/dl (70-99) Bedside Ionized Calcium (Kirby) 1.17 mmol/l (1.12-1.32) Test 03/11/17 15:46 03/11/17 16:00 03/11/17 19:00 03/11/17 19:43 White Blood Count 7.66 K/uL (4.8-10.8) Red Blood Count 3.73 M/uL (4.7-6.1) Hemoglobin 11.7 g/dL (14.0-18.0) Hematocrit 33.7 % (42-52) Mean Corpuscular Volume 90.3 fL (80-100) Mean Corpuscular Hemoglobin 31.4 pg (25-34) Mean Corpuscular Hemoglobin Concent 34.7 g/dl (32-36) Platelet Count 191 K/uL (130-400) Mean Platelet Volume 8.7 fL (7.4-10.4) Neutrophils (%) (Auto) 85.8 % Lymphocytes (%) (Auto) 4.7 % Monocytes (%) (Auto) 8.5 % Eosinophils (%) (Auto) 0.1 % Basophils (%) (Auto) 0.1 % Neutrophils # (Auto) 6.57 K/uL (1.4-6.5) Lymphocytes # (Auto) 0.36 K/uL (1.2-3.4) Monocytes # (Auto) 0.65 K/uL (0.11-0.59) Eosinophils # (Auto) 0.01 K/uL (0-0.5) Basophils # (Auto) 0.01 K/uL (0-0.2) RDW Standard Deviation 47.7 fL (36.4-46.3) RDW Coefficient of Variation 14.4 % (11.5-14.5) Immature Granulocyte % (Auto) 0.8 % Immature Granulocyte # (Auto) 0.06 K/uL (0.00-0.02) Prothrombin Time 14.7 SECONDS (9.0-12.0) Prothromb Time International Ratio 1.4 (0.9-1.1) Activated Partial Thromboplast Time 26.2 SECONDS (21.0-31.0) Partial Thromboplastin Ratio 1.0 D-Dimer 5240 ug/L FEU (0-500) Sodium Level 129 mmol/L (136-145) Potassium Level 3.9 mmol/L (3.5-5.1) Chloride Level 97 mmol/L (98-107) Carbon Dioxide Level 18 mmol/L (21-32) Anion Gap 14.0 mmol/L (3-11) Blood Urea Nitrogen 14 mg/dl (7-18) Creatinine 1.20 mg/dl (0.60-1.40) Estimated GFR () 63.1 Estimated GFR (Non- 54.4 BUN/Creatinine Ratio 11.5 (10-20) Random Glucose 128 mg/dl (70-99) Calcium Level 8.6 mg/dl (8.5-10.1) Total Bilirubin 0.9 mg/dl (0.2-1) Aspartate Amino Transf (AST/SGOT) 40 U/L (15-37) Alanine Aminotransferase (ALT/SGPT) 27 U/L (12-78) Alkaline Phosphatase 116 U/L (45-117) Total Creatine Kinase 111 U/L (39-308) Creatine Kinase MB 2.3 ng/ml (0.5-3.6) Creatine Kinase MB Ratio 2.1 (0-3.0) Troponin I < 0.015 ng/ml (0-0.045) Pro-B-Type Natriuretic Peptide 3294 pg/ml (0-1800) Total Protein 6.2 gm/dl (6.4-8.2) Albumin 3.5 gm/dl (3.4-5.0) Globulin 2.7 gm/dl (2.5-4.0) Albumin/Globulin Ratio 1.3 (0.9-2) Thyroid Stimulating Hormone (TSH) 2.340 uIu/ml (0.300-4.500) Urine Color YELLOW Urine Appearance CLEAR (CLEAR) Urine pH 5.5 (4.5-7.5) Urine Specific [place] 1.023 (1.000-1.030) Urine Protein TRACE (NEG) Urine Glucose (UA) NEG (NEG) Urine Ketones NEG (NEG) Urine Occult Blood TRACE (NEG) Urine Nitrite NEG (NEG) Urine Bilirubin NEG (NEG) Urine Urobilinogen NEG (NEG) Urine Leukocyte Esterase NEG (NEG) Urine WBC (Auto) 1-5 /hpf (0-5) Urine RBC (Auto) 5-10 /hpf (0-4) Urine Hyaline Casts (Auto) 1-5 /lpf (0-5) Urine Epithelial Cells (Auto) 10-20 /lpf (0-5) Urine Bacteria (Auto) NEG (NEG) Micro Results: 03/11 blood x2 pending 03/11 urine pending 03/11 nasal swab pending Recent Pertinent Medications Item Value Date Time Ceftriaxone 50 ml @ 100 mls/hr 03/12/17 1700 Sodium 1 gm/ Q24H/IV Dextrose Vancomycin HCl 275 ml @ 125 mls/hr 03/12/17 1100 1250 mg/Sodium Q16H/IV Chloride Azithromycin 500 255 ml @ 125 mls/hr 03/11/17 2000 mg/Dextrose DAILY@2000/IV Vancomycin HCl 540 ml @ 200 mls/hr 03/11/17 1900 2000 mg/Sodium TODAY@1900/IV 03/11/17 1903 Chloride Ceftriaxone 70 ml @ 100 mls/hr 03/11/17 1612 Sodium 2000 mg/ ONE STAT/IV 03/11/17 1636 Dextrose Assessment & Plan Loading dose: vancomycin 2000 mg IV X 1 dose (~25 mg/kg) then: vancomycin 1250 mg IV every 16 hours. Goal peak level estimate: between 25 - 40 mcg/mL. Goal trough level estimate: between 15-20 mcg/mL. Trough has been ordered for: 03/13/17 before 0300 dose. May not be quite steady- state but prefer to check sooner than later in elderly patient. Pharmacy will continue to follow and will adjust dose/frequency as necessary. Thank you
--- NOTE | 2017-03-11 20:36 | DIAGNOSTIC IMAGING REPORT ---
ULTRASOUND OF THE CAROTID ARTERIES CLINICAL HISTORY: Acute change in mental status COMPARISON STUDY: None. TECHNIQUE: Real-time, grayscale, and color Doppler sonography of the carotid arteries was performed. Imaging reviewed in the transverse and longitudinal planes. NASCET criteria was utilized for stenosis calcification. FINDINGS: There is minor atherosclerotic plaque present . The peak systolic velocity within the right internal carotid artery is 39 cm/sec. The systolic velocity ratio of right internal to common carotid artery is 0.5. The peak systolic velocity within the left internal carotid artery is 33 cm/sec. The systolic velocity ratio left internal to common carotid artery is 0.4. Antegrade flow is seen in the vertebral arteries. The external carotid arteries are patent. Blood pressure in the right arm measured 146 mm/Hg. Blood pressure in the left arm measured 151 mm/Hg. IMPRESSION: No evidence of hemodynamically significant carotid stenosis. Electronically signed by: Marty Bob M.D. 03/11/2017 8:35 PM Dictated Date/Time: 03/11/2017 8:33 PM
[2017-03-11] MEDS: CETIRIZINE HCL 10 MG TAB PO SCH (21:00)
[2017-03-11] MEDS: RIVAROXABAN TAB 15 MG TAB PO SCH (21:00)
[2017-03-11] MEDS: DOCUSATE SODIUM 100 MG CAP PO SCH (21:00)
[2017-03-11] MEDS: FINASTERIDE 5 MG TAB PO SCH (21:00)
[2017-03-11] MEDS: PANTOprazole SOD 40 MG TAB PO SCH (21:00)
[2017-03-11] MEDS: FERROUS SULFATE 325 MG TAB PO SCH (21:00)
[2017-03-11] MEDS: METOPROLOL SUCC 25MG EXT REL TAB PO SCH (21:00)
[2017-03-11] MEDS: ATORVASTATIN 20 MG TAB PO SCH (21:00)
[2017-03-11] MEDS ORDERED: HEPARIN SOD 5000 UNIT/0.5 ML CARP SQ SCH (22:00)
[2017-03-12] VITALS (9 sets, daily range): BP systolic 131–174; BP diastolic 50–92; PULSE 67–92; TEMP 36.3–37.2; O2SAT 89–98
[2017-03-12] MEDS: LEVETIRACETAM IV 500 MG in DEXTROSE 5% 100ML 100 ML IV SCH ×2 (06:06→17:29)
[2017-03-12] MEDS: SODIUM CHLORIDE 0.9% 1000ML 1,000 ML IV SCH ×2 (06:07→17:29)
[2017-03-12 06:12] LABS: VEN BLOOD GAS BASE EXCESS -1.5 mEq/L; VENOUS BLOOD GAS PCO2 36 mmHg (38.0-50.0); VENOUS BLOOD GAS PO2 29 mmHg
[2017-03-12 06:14] LABS: VEN BLD GAS O2 SATURATION < 60.0 %
[2017-03-12 06:14] LABS: BASO % 0.1 %; BASO ABS # 0.01 K/uL (0-0.2); COMPLETE YES; HEMATOCRIT 34.6 % (42-52); IG% 0.2 %; LYMPH % 5.7 %; LYMPH ABS # 0.48 K/uL (1.2-3.4); MEAN CELL VOLUME 90.3 fL (80-100); MEAN CORPUSCULAR HEMOGLOBIN 31.1 pg (25-34); MEAN CORPUSCULAR HGB CONC 34.4 g/dl (32-36); MEAN PLATELET VOLUME 8.8 fL (7.4-10.4); MONO % 15.3 %; NEUT % 78.7 %; PLATELET COUNT 192 K/uL (130-400); RED BLOOD COUNT 3.83 M/uL (4.7-6.1); WHITE BLOOD COUNT 8.35 K/uL (4.8-10.8)
[2017-03-12 06:54] LABS: BUN/CREATININE RATIO 12.8 (10-20); CALCIUM 8.9 mg/dl (8.5-10.1); CREATININE 0.89 mg/dl (0.60-1.40); POTASSIUM 3.7 mmol/L (3.5-5.1)
[2017-03-12] MEDS: PANTOprazole SOD 40 MG TAB PO SCH ×2 (08:06→20:16)
[2017-03-12] MEDS: LISINOPRIL 2.5 MG TAB PO SCH (08:06)
[2017-03-12] MEDS: DOCUSATE SODIUM 100 MG CAP PO SCH ×2 (08:06→20:16)
[2017-03-12] MEDS: FERROUS SULFATE 325 MG TAB PO SCH ×2 (08:06→20:16)
--- NOTE | 2017-03-12 08:25 | Neurology Consultation ---
Neurology Consultation Date of Consultation: Mar 12, 2017. Attending Physician: Roosevelt Muñiz D.O. Primary Care Physician: Wesley Gabriel M.D. Reason for Consultation: Patient is an 86-year-old, who was asked to see the request of Dr. Muñiz, for neurologic consultation regarding new onset seizure and altered mental status. History of Present Illness Source: patient, caregiver, clinic records, hospital records Patient has a history of chronic atrial fibrillation on Xarelto. He also has a history of sick sinus syndrome with pacemaker. Although he has no history of previous stroke, he has a history of hypertension and dyslipidemia. According to the records, patient has no significant history of dementia or psychiatric issues. He was quite clear and functioning fairly well prior to admission. Apparently, during the week before admission he was getting weak and fatigued. He had some "cold" symptoms, including a cough and congestion, and was given Zithromax. On March 11, he was considerably weaker in a generalized nature with severe fatigue and shortness of breath. He arrived at the emergency room on 1416 hours with a pulse of 74, respiratory rate of 14, blood pressure 113/66, and O2 saturation of 84%. In the ER he was described as anxious but could follow commands and there are no focal neurologic findings on examination. He was noted to have a mild anemia on CBC with a normal white count. Chem profile was remarkable for a low sodium of 129 and a mildly elevated glucose 130. The patient had elevated probated natruretic protein of over 3000 and a d-dimer elevated over 5000 CT of the chest showed no pulmonary embolism. There was cardiomegaly and a dilated ascending aorta of [address] scan of the head was unremarkable for acute changes and there was some old ischemic changes noted. Chest x-ray showed cardiomegaly with no infiltrate. Carotid ultrasound was unremarkable. The patient was noted to have shortness of breath, trouble swallowing with choking on mucus requiring suctioning. He was requiring oxygen to breathe better. At 1727 hours, the patient was noted, while in the emergency room, to have a "grand mal" seizure lasting about 2 minutes. Ativan end up not being given as the seizure stopped and he was given a loading dose of 2000mg Keppra IV. The patient had no further seizure activity but had some increased confusion afterwards. Overnight, the patient has been described as restless, picking and pulling at lines and leads. This morning he is somewhat calmer but very sleepy. Patient denies any pain or headaches. Later on he said he had some chest discomfort and some abdominal discomfort. His biggest complaint is severe fatigue and sleepiness. He is choking on mucus and has trouble swallowing. He denies dizziness or numbness. He has a Schmitt catheter in. Past Medical/Surgical History Medical Problems: (1) Altered mental status Status: Acute (2) Bleeding internal hemorrhoids Status: Acute (3) Constipation Status: Acute (4) Epistaxis Status: Acute (5) Hypoxia Status: Acute (6) Lactic acidosis Status: Acute (7) PNA (pneumonia) Status: Acute (8) Respiratory failure Status: Acute (9) Severe anemia Status: Acute (10) Sinusitis Status: Acute (11) Skin lesion of scalp Status: Acute (12) Vertigo Status: Acute (13) Weakness Status: Acute Atrial fibrillation on Xarelto Sick sinus syndrome with pacemaker History of cardiomegaly and congestive heart failure He uses BiPAP at home Hypertension Dyslipidemia Gastroesophageal reflux disease History of COPD BPH History of pneumonia in the past Post right inguinal hernia repair 2002 Cataract surgery Tonsillectomy Family History Other age 35, PE with childbirth of the patient Father age 83 with colon cancer and had an WI in the past Social History Patient never smoked cigarettes. Patient occasionally has a drink of alcohol but he has not been a frequent or heavy alcohol user. 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. Smoking Status: Never smoker Smokeless Tobacco Use: No Alcohol Use: occasionally Drug Use: none Marital Status: Housing Status: assisted living Occupation Status: retired Allergies Coded Allergies: No Known Allergies (Verified , 03/11/17) Current Inpatient Medications Current Inpatient Medications Medications (Trade) Dose Ordered Sig/Tanesha Route Start Time Stop Time Status Last Admin Dose Admin Ioversol (Optiray 320) 100 ml UD PRN IV 03/11/17 15:45 03/15/17 15:44 Sodium Chloride 1,000 ml @ 100 mls/hr Q10H IV 03/11/17 16:45 04/10/17 16:44 03/12/17 06:07 100 MLS/HR Acetaminophen (Tylenol Tab) 650 mg Q4H PRN PO 03/11/17 16:45 04/10/17 16:44 Ondansetron HCl (Zofran Inj) 4 mg Q6H PRN IV 03/11/17 16:45 04/10/17 16:44 Ceftriaxone Sodium 1 gm/ Dextrose 50 ml @ 100 mls/hr Q24H IV 03/12/17 17:00 03/18/17 16:59 Vancomycin HCl 1250 mg/Sodium Chloride 275 ml @ 125 mls/hr Q16H IV 03/12/17 11:00 03/18/17 18:59 Azithromycin 500 mg/Dextrose 255 ml @ 125 mls/hr DAILY@2000 IV 03/11/17 20:00 03/18/17 19:59 03/11/17 20:34 125 MLS/HR Atorvastatin Calcium (Lipitor Tab) 40 mg QPM PO 03/11/17 21:00 04/10/17 20:59 Cetirizine HCl (zyrTEC TAB) 10 mg QPM PO 03/11/17 21:00 04/10/17 20:59 Docusate Sodium (coLACE CAP) 100 mg BID PO 03/11/17 21:00 04/10/17 20:59 Finasteride (Proscar Tab) 5 mg QPM PO 03/11/17 21:00 04/10/17 20:59 Lisinopril (Zestril Tab) 2.5 mg QAM PO 03/12/17 09:00 04/11/17 08:59 Metoprolol Succinate (Toprol Xl Tab) 25 mg QPM PO 03/11/17 21:00 04/10/17 20:59 Pantoprazole Sodium (Protonix Tab) 40 mg BID PO 03/11/17 21:00 04/10/17 20:59 Rivaroxaban (Xarelto Tab) 15 mg QPM PO 03/11/17 21:00 04/10/17 20:59 Ferrous Sulfate (Feosol Tab) 325 mg BID PO 03/11/17 21:00 04/10/17 20:59 Levetiracetam 500 mg/Dextrose 105 ml @ 420 mls/hr Q12@0600,1800 IV 03/12/17 06:00 04/11/17 05:59 03/12/17 06:06 420 MLS/HR Vancomycin HCl (Consult) 1 ea UD PRN N/A 03/11/17 18:45 04/10/17 18:44 Review of Systems Constitutional: + weakness, + fatigue Eyes: No worsening of vision, No diplopia ENT: + hearing loss, + trouble swallowing, No tinnitus Respiratory: + cough, + shortness of breath Cardiovascular: + chest pain, No palpitations Abdomen: + pain, No nausea Musculoskeletal: No joint pain, No muscle pain Genitourinary - Male: No dysuria, No urinary incontinence Neurologic: + memory loss, + weakness, No numbness/tingling Psychiatric: No depression symptoms, No anxiety Endocrine: + fatigue Hematologic / Lymphatic: + abnormal bleeding/bruising Integumentary: No rash Allergic / Immunologic: No hives Physical Exam Vital Signs (Past 24 Hrs): Date Time Temp Pulse Resp B/P (MAP) Pulse Ox O2 Delivery O2 Flow Rate FiO2 03/12/17 07:25 36.4 81 18 158/84 (108) 91 Nasal Cannula 03/12/17 04:00 Oxymask 10.0 03/12/17 03:53 37.0 68 22 151/87 (108) 98 Oxymask 6.0 03/12/17 00:00 Oxymask 10.0 03/12/17 00:00 37.2 78 18 141/83 (102) 92 Nasal Cannula 10.0 03/11/17 20:00 Oxymask 10.0 03/11/17 18:18 36.7 64 16 150/89 (109) 96 Non-Rebreather 13.0 03/11/17 17:49 81 20 132/92 97 Non-Rebreather 15.0 03/11/17 17:14 Non-Rebreather 15.0 03/11/17 16:36 37.3 70 16 138/87 98 BiPAP 50 03/11/17 16:00 73 95 50 03/11/17 15:49 74 18 149/87 100 BiPAP 50 03/11/17 14:29 94 Nasal Cannula 4.0 03/11/17 14:19 93 Nasal Cannula 4.0 03/11/17 14:16 74 14 113/66 84 Room Air 03/11/17 14:16 71 03/11/17 14:14 85 Room Air The patient is right-handed. The patient is very sleepy, and when left alone falls quickly back to sleep. He wakes with voice and gentle shake and will stay fairly awake if stimulated. Speech is soft and mumble a few he has no distinct aphasia or dysarthria. Mentation and thought processes are somewhat difficult to evaluate because of his sleepiness but he knows his name, his age, and the fact that he is in the hospital. He does not know the month or day. He can follow one-step commands fairly well but he is a little slow. His mood seems reasonable. The discs are difficult to visualize but seem sharp. Pupils are 2mm bilaterally and reactive to light. Extraocular eye muscles are intact without nystagmus. Visual acuity and visual muhammad seem normal grossly to confrontation. There are no deficits to sensation of the face bilaterally. Corneal reflexes are positive bilaterally. Facial strength and symmetry is normal bilaterally. Hearing seems mildly decreased bilaterally. Palate moves well without asymmetry. There is normal sternocleidomastoid and trapezius strength bilaterally. Tongue is midline with good strength bilaterally. Neck is with full range of motion without discomfort. There are no cervical bruits. There are no cranial or ocular bruits. Heart is without murmur. Cervical, thoracic, and lumbar spine are nontender to palpation. Gait and stance could not be tested as the patient was not strong enough to sit up With outstretched arms there is no obvious drift. There are no resting, postural, or action tremors. There is no ataxia with [id number] testing. There is reasonable facility in the hands. There are no abnormal involuntary movements noted. Motor strength is 5/5 diffusely (with encouragement) in the arms bilaterally including deltoids, biceps, brachioradialis, wrist flexors and extensors, medicaid specialist, and intrinsic hand muscles. Motor strength is 5/5 diffusely in the legs bilaterally including hip flexors, quadriceps, hamstring, gastrocnemius, tibialis anterior, tibialis posterior, and peroneii muscles bilaterally. I do not note any focal weakness. The limbs have good tone without rigidity or spasticity, and there is no focal atrophy noted. Muscle bulk is normal, there is no tenderness, no myotonia noted to percussion, and no fasciculations seen. Sensory examination is intact to pin and touch throughout all four limbs. Reflexes are 1/4 in the biceps, triceps, and brachioradialis tendons bilaterally. Quadriceps and Achilles tendon reflexes are absent bilaterally Toes are neutral to downgoing on the right and neutral to upgoing on the left ( equivocal) Peripheral pulses are present and of normal quality distally in all four limbs. There is no peripheral edema noted. Laboratory Results Past 24 Hours: 03/12/17 05:53 Red Blood Count 3.83, Mean Corpuscular Volume 90.3, Mean Corpuscular Hemoglobin 31.1, Mean Corpuscular Hemoglobin Concent 34.4, Mean Platelet Volume 8.8, Neutrophils (%) (Auto) 78.7, Lymphocytes (%) (Auto) 5.7, Monocytes (%) (Auto) 15.3, Eosinophils (%) (Auto) 0.0, Basophils (%) (Auto) 0.1, Neutrophils # (Auto ) 6.56, Lymphocytes # (Auto) 0.48, Monocytes # (Auto) 1.28, Eosinophils # (Auto ) 0.00, Basophils # (Auto) 0.01 03/12/17 05:53 Test 03/11/17 15:04 03/11/17 15:27 03/11/17 15:32 03/11/17 15:46 Bedside Glucose 132 mg/dl (70-99) Bedside Lactic Acid Venous 13.20 mmol/L (0.90-1.70) Bedside Hemoglobin 12.2 g/dl (14.0-18.0) Bedside Hematocrit 36 % (42-52) Bedside Sodium 130 mEq/L (135-144) Bedside Potassium 3.9 mEq/L (3.3-5.0) Bedside Chloride 95 mEq/L (101-112) Bedside Total CO2 13 mEq/l (24-31) Bedside Blood Urea Nitrogen 15 mg/dl (7-18) Bedside Creatinine 0.9 mg/dl (0.6-1.3) Bedside Glucose (other) 135 mg/dl (70-99) Bedside Ionized Calcium ([place]) 1.17 mmol/l (1.12-1.32) Prothrombin Time 14.7 SECONDS (9.0-12.0) Prothromb Time International Ratio 1.4 (0.9-1.1) Activated Partial Thromboplast Time 26.2 SECONDS (21.0-31.0) Partial Thromboplastin Ratio 1.0 D-Dimer 5240 ug/L FEU (0-500) Total Bilirubin 0.9 mg/dl (0.2-1) Aspartate Amino Transf (AST/SGOT) 40 U/L (15-37) Alanine Aminotransferase (ALT/SGPT) 27 U/L (12-78) Alkaline Phosphatase 116 U/L (45-117) Total Creatine Kinase 111 U/L (39-308) Creatine Kinase MB 2.3 ng/ml (0.5-3.6) Creatine Kinase MB Ratio 2.1 (0-3.0) Pro-B-Type Natriuretic Peptide 3294 pg/ml (0-1800) Total Protein 6.2 gm/dl (6.4-8.2) Albumin 3.5 gm/dl (3.4-5.0) Globulin 2.7 gm/dl (2.5-4.0) Albumin/Globulin Ratio 1.3 (0.9-2) Thyroid Stimulating Hormone (TSH) 2.340 uIu/ml (0.300-4.500) Test 03/11/17 16:00 03/11/17 19:00 03/11/17 19:43 03/12/17 05:53 Urine Color YELLOW Urine Appearance CLEAR (CLEAR) Urine pH 5.5 (4.5-7.5) Urine Specific [place] 1.023 (1.000-1.030) Urine Protein TRACE (NEG) Urine Glucose (UA) NEG (NEG) Urine Ketones NEG (NEG) Urine Occult Blood TRACE (NEG) Urine Nitrite NEG (NEG) Urine Bilirubin NEG (NEG) Urine Urobilinogen NEG (NEG) Urine Leukocyte Esterase NEG (NEG) Urine WBC (Auto) 1-5 /hpf (0-5) Urine RBC (Auto) 5-10 /hpf (0-4) Urine Hyaline Casts (Auto) 1-5 /lpf (0-5) Urine Epithelial Cells (Auto) 10-20 /lpf (0-5) Urine Bacteria (Auto) NEG (NEG) Influenza Type A Antigen Neg for Influ A (NEG) Influenza Type B Antigen Neg for Influ B (NEG) Lactic Acid Level 3.6 mmol/L (0.4-2.0) White Blood Count 8.35 K/uL (4.8-10.8) Red Blood Count 3.83 M/uL (4.7-6.1) Hemoglobin 11.9 g/dL (14.0-18.0) Hematocrit 34.6 % (42-52) Mean Corpuscular Volume 90.3 fL (80-100) Mean Corpuscular Hemoglobin 31.1 pg (25-34) Mean Corpuscular Hemoglobin Concent 34.4 g/dl (32-36) Platelet Count 192 K/uL (130-400) Mean Platelet Volume 8.8 fL (7.4-10.4) Neutrophils (%) (Auto) 78.7 % Lymphocytes (%) (Auto) 5.7 % Monocytes (%) (Auto) 15.3 % Eosinophils (%) (Auto) 0.0 % Basophils (%) (Auto) 0.1 % Neutrophils # (Auto) 6.56 K/uL (1.4-6.5) Lymphocytes # (Auto) 0.48 K/uL (1.2-3.4) Monocytes # (Auto) 1.28 K/uL (0.11-0.59) Eosinophils # (Auto) 0.00 K/uL (0-0.5) Basophils # (Auto) 0.01 K/uL (0-0.2) RDW Standard Deviation 48.7 fL (36.4-46.3) RDW Coefficient of Variation 14.8 % (11.5-14.5) Immature Granulocyte % (Auto) 0.2 % Immature Granulocyte # (Auto) 0.02 K/uL (0.00-0.02) Anion Gap 9.0 mmol/L (3-11) Est Creatinine Clear Calc Drug Dose 63.4 ml/min Estimated GFR () 89.7 Estimated GFR (Non- 77.4 BUN/Creatinine Ratio 12.8 (10-20) Calcium Level 8.9 mg/dl (8.5-10.1) Troponin I 0.178 ng/ml (0-0.045) Test 03/12/17 05:58 Venous Blood pH 7.41 (7.36-7.41) Venous Blood Partial Pressure CO2 36 mmHg (38.0-50.0) Venous Blood Partial Pressure O2 29 mmHg Venous Blood HCO3 23 mmol/L Venous Blood Oxygen Saturation < 60.0 % Venous Blood Base Excess -1.5 mEq/L Date/Time Source Procedure Growth Status 03/11/17 19:00 Nasal MRSA DNA Surveillance Screen - Final Specimen Negative for MRSA by DNA Probe Complete Imaging CT HEAD WITHOUT CONTRAST (CT) CLINICAL HISTORY: G, altered mental status. COMPARISON STUDY: 01/10/2016 TECHNIQUE: Axial CT of the brain is performed from the vertex to the skull base. IV contrast was not administered for this examination. A dose lowering technique was utilized adhering to the principles of ALARA. CT DOSE: FINDINGS: No intra or extra-axial mass lesions are visualized. There is no CT evidence of acute cortical infarction. There is no evidence of midline shift. There is no acute hemorrhage. No calvarial fractures are visualized. There are patchy white matter hypodensities likely on a small vessel basis. There is no evidence of pathologic ventricular dilatation. There is no evidence of acute sinusitis IMPRESSION: No acute intracranial findings Electronically signed by: Marty Bob M.D. 03/11/2017 3:43 PM Impression 1. Acute encephalopathy The patient has multiple reasons for this. I suspect hypoxia and cardiopulmonary reasons for confusion. Hyponatremia can cause encephalopathy as well. Additionally, he had a generalized seizure yesterday and likely has some post ictal confusional state The patient has no focal neurologic signs except for a possible upgoing toe on the left which is nonspecific. I have a lower suspicion for stroke in this patient 2. Generalized seizure March 11 This is likely a secondary seizure due to his medical conditions, including global hypoxia Hyponatremia can create generalized seizures as well. 3. Hyponatremia, of uncertain etiology 4. Congestive heart failure Elevated d-dimer without obvious pulmonary embolism or venous thromboembolism. Heart failure can elevate the d-dimer as well. 5. Chronic atrial fibrillation on anticoagulation 6. Sick sinus syndrome with pacemaker Plan 1. EEG 2. MRI of the brain, if this can be done with his current pacemaker 3. Continue Keppra 500 mg IV (or by mouth when able to take by mouth) twice daily 4. Additional recommendations will be made after the above tests I spoke with Dr. Poe regarding this case including differential diagnosis and treatment options.
--- NOTE | 2017-03-12 10:06 | ECHOCARDIOGRAM REPORT ---
*NOTICE TO RECEIVING [employer] [employer] [facility] This information is strictly Confidential and protected under [place] law. [place] law prohibits you from making any further disclosure of this information unless further disclosure is expressly permitted by the written consent of the person to whom it pertains or is authorized by law. A general authorization for the release of medical or other information is not sufficient for this purpose. Hospital accepts no responsibility if the information is made available to any other person, INCLUDING THE PATIENT. Interpretation Summary * Name: SHARMILA MERINO Study Date: 03/12/2017 06:54 AM BP: 151/87 mmHg * Patient Location: [facility]\S\N285\S\2 HR: 68 * : 1930 (M/d/yyyy) Gender: Male Height: 70 in * Age: 86 yrs Ethnicity: [place] Weight: 177 lb * Ordering Physician: Roosevelt Muñiz * Referring Physician: Tania Kowalski * Performed By: Sidra Hicks * * Reason For Study: A-FIB * BSA: 2.0 m2 * -- Conclusions -- * The left ventricle is normal in size. * There is moderate concentric left ventricular hypertrophy. * Left ventricular systolic function is normal. * Ejection Fraction = 55-60%. * No obvious wall motion abnormalities. * The right ventricle is severely dilated. * The right ventricular systolic function is normal. * The right ventricular systolic function is normal as assessed by tricuspid annular plane systolic excursion (TAPSE) (normal >1.5 cm). * The right atrium is severely dilated. * There is a pacemaker lead in the right ventricle. * Aortic valve sclerosis mild, without significant aortic valvular stenosis. * Bowing of the PMVL with mild to moderate mitral regurgitation. * Dilated annulus with moderate to severe TR. * Moderate Pulmonary HTN with PA pressure 55 mm/hg * Dilated aortic root 4.[address] ascending aorta 4.7 cm. * Dilated inferior vena cava with reduced collapsability with sniff indicates an elevated right atrial pressure of 15 mmHg * Elevated LA pressures Procedure Details * A complete two-dimensional transthoracic echocardiogram was performed (2D, M-mode, Doppler and color flow Doppler). * The study was technically difficult. * There were technical limitations due to patient'sinability to cooperate Left Ventricle * The left ventricle is normal in size. * There is moderate concentric left ventricular hypertrophy. * Ejection Fraction = 55-60%. * Left ventricular systolic function is normal. * No obvious wall motion abnormalities. Right Ventricle * The right ventricle is severely dilated. * There is a pacemaker lead in the right ventricle. * The right ventricular systolic function is normal. * The right ventricular systolic function is normal as assessed by tricuspid annular plane systolic excursion (TAPSE) (normal >1.5 cm). Atria * The left atrial size is normal. * The right atrium is severely dilated. Mitral Valve * Bowing of the PMVL with mild to moderate mitral regurgitation. Tricuspid Valve * Dilated annulus with moderate to severe TR. Moderate Pulmonary HTN with PA pressure 55 mm/hg Aortic Valve * Aortic valve sclerosis mild, without significant aortic valvular stenosis. * Mild aortic regurgitation. Pulmonic Valve * The pulmonic valve is not well seen, but is grossly normal. * Mild to moderate pulmonic valvular regurgitation. Great Vessels * Dilated aortic root 4.[address] ascending aorta 4.7 cm. Pericardium/Pleural * There is no pericardial effusion. Great Vessels * Dilated inferior vena cava with reduced collapsability with sniff indicates an elevated right atrial pressure of 15 mmHg Left Ventricular Diastolic Function * Elevated LA pressures MMode 2D Measurements and Calculations IVSd 1.6 cm IVSs 3.0 cm LVIDd 5.1 cm LVIDs 3.4 cm LVPWd 1.6 cm LVPWs 1.7 cm IVS/LVPW 1.1 FS 33.3 % EDV(Teich) 122.5 ml ESV(Teich) 46.9 ml EF(Teich) 61.7 % EDV(cubed) 130.9 ml ESV(cubed) 38.8 ml EF(cubed) 70.4 % % IVS thick 80.6 % % LVPW thick 6.5 % LV mass(C)d 363.5 grams LV mass(C)dI 183.4 grams/m\S\2 LV mass(C)s 395.7 grams LV mass(C)sI 199.7 grams/m\S\2 SV(Teich) 75.6 ml SI(Teich) 38.2 ml/m\S\2 SV(cubed) 92.1 ml SI(cubed) 46.5 ml/m\S\2 ACS 1.7 cm LA dimension 4.8 cm asc Aorta Diam 4.6 cm LVOT diam 2.4 cm LVOT area 4.3 cm\S\2 LVAd ap4 27.0 cm\S\2 LVLd ap4 7.9 cm EDV(MOD-sp4) 73.9 ml EDV(sp4-el) 78.0 ml LVAs ap4 16.8 cm\S\2 LVLs ap4 7.5 cm ESV(MOD-sp4) 30.0 ml ESV(sp4-el) 31.7 ml EF(MOD-sp4) 59.4 % EF(sp4-el) 59.4 % LVAd ap2 31.3 cm\S\2 LVLd ap2 8.1 cm EDV(MOD-sp2) 105.6 ml EDV(sp2-el) 102.3 ml LVAs ap2 19.6 cm\S\2 LVLs ap2 7.3 cm ESV(MOD-sp2) 45.1 ml ESV(sp2-el) 44.9 ml EF(MOD-sp2) 57.3 % EF(sp2-el) 56.1 % LVLd %diff 2.5 % EDV(MOD-bp) 87.0 ml LVLs %diff -3.43 % ESV(MOD-bp) 36.2 ml EF(MOD-bp) 58.4 % SV(MOD-sp4) 43.9 ml SI(MOD-sp4) 22.1 ml/m\S\2 SV(MOD-sp2) 60.5 ml SI(MOD-sp2) 30.5 ml/m\S\2 SV(MOD-bp) 50.8 ml SI(MOD-bp) 25.7 ml/m\S\2 SV(sp4-el) 46.3 ml SI(sp4-el) 23.4 ml/m\S\2 SV(sp2-el) 57.4 ml SI(sp2-el) 29.0 ml/m\S\2 Doppler Measurements and Calculations MV E max ayad 77.4 cm/sec MV A max ayad 78.5 cm/sec MV E/A 0.99 MV dec time 0.25 sec Ao V2 max 96.6 cm/sec Ao max PG 3.7 mmHg Ao max PG (full) 1.1 mmHg SASHA(V,A) 3.6 cm\S\2 SASHA(V,D) 3.6 cm\S\2 AI max ayad 376.1 cm/sec AI max PG 56.6 mmHg AI dec slope 119.8 cm/sec\S\2 AI P1/2t 919.4 msec LV V1 max PG 2.6 mmHg LV V1 max 80.8 cm/sec MR max ayad 461.8 cm/sec MR max PG 91.4 mmHg PA V2 max 66.3 cm/sec PA max PG 1.8 mmHg PI end-d ayad 88.0 cm/sec TR max ayad 290.4 cm/sec
[2017-03-12] MEDS: VANCOMYCIN INJ 1,250 MG in SODIUM CHLORIDE 0.9% 250ML 250 ML IV SCH (10:45)
--- NOTE | 2017-03-12 12:05 | Progress Note ---
Subjective Date of Service: Mar 12, 2017. Subjective Patient is a poor historian. Patient currently does awaken but does not give intelligible responses. Notes from nurse: he has had episodes of being lucid. No fever, or elevated heart rate noted. Patient is admitted with H/O A.Fib, Sick sinus syndrome S/P pacemaker; Recent admision in October: for GI bleed, was off xarelto, and was to discuss with outpatient provider as to continue with it. Returns to hospital with xarelto on board. Current history, patient came in the hospital with altered mental status/ seizure after being treated with pneumonia as an outpatient for 2 days and no improvement. In the hospital, he had CT scan of his chest which was negative after a negative c-xray. 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 (Not sure if this is new) Carotid artery ultrasound was negative. Lactic acid was elevated at 3, with decreased sodium. Neurology was consulted, which deems altered mental status likely multifactorial. Ordered EEG and MRI (pending cardio clearance due to pacemaker) Patient currently on triple antibiotic vanco/azithromycin/ ceftriaxone though no identifiable source has been found at this time. Problem List Medical Problems: (1) Altered mental status Status: Acute (2) Bleeding internal hemorrhoids Status: Acute (3) Constipation Status: Acute (4) Epistaxis Status: Acute (5) Hypoxia Status: Acute (6) Lactic acidosis Status: Acute (7) PNA (pneumonia) Status: Acute (8) Respiratory failure Status: Acute (9) Severe anemia Status: Acute (10) Sinusitis Status: Acute (11) Skin lesion of scalp Status: Acute (12) Vertigo Status: Acute (13) Weakness Status: Acute Review of Systems unable to obtain due to altered mental status All Other Systems: Reviewed and Negative Medications Current Inpatient Medications Medications (Trade) Dose Ordered Sig/Tanesha Route Start Time Stop Time Status Last Admin Dose Admin Ioversol (Optiray 320) 100 ml UD PRN IV 03/11/17 15:45 03/15/17 15:44 Sodium Chloride 1,000 ml @ 100 mls/hr Q10H IV 03/11/17 16:45 04/10/17 16:44 03/12/17 06:07 100 MLS/HR Acetaminophen (Tylenol Tab) 650 mg Q4H PRN PO 03/11/17 16:45 04/10/17 16:44 Ondansetron HCl (Zofran Inj) 4 mg Q6H PRN IV 03/11/17 16:45 04/10/17 16:44 Ceftriaxone Sodium 1 gm/ Dextrose 50 ml @ 100 mls/hr Q24H IV 03/12/17 17:00 03/18/17 16:59 Vancomycin HCl 1250 mg/Sodium Chloride 275 ml @ 125 mls/hr Q16H IV 03/12/17 11:00 03/18/17 18:59 03/12/17 10:45 125 MLS/HR Azithromycin 500 mg/Dextrose 255 ml @ 125 mls/hr DAILY@2000 IV 03/11/17 20:00 03/18/17 19:59 03/11/17 20:34 125 MLS/HR Atorvastatin Calcium (Lipitor Tab) 40 mg QPM PO 03/11/17 21:00 04/10/17 20:59 Cetirizine HCl (zyrTEC TAB) 10 mg QPM PO 03/11/17 21:00 04/10/17 20:59 Docusate Sodium (coLACE CAP) 100 mg BID PO 03/11/17 21:00 04/10/17 20:59 Finasteride (Proscar Tab) 5 mg QPM PO 03/11/17 21:00 04/10/17 20:59 Lisinopril (Zestril Tab) 2.5 mg QAM PO 03/12/17 09:00 04/11/17 08:59 Metoprolol Succinate (Toprol Xl Tab) 25 mg QPM PO 03/11/17 21:00 04/10/17 20:59 Pantoprazole Sodium (Protonix Tab) 40 mg BID PO 03/11/17 21:00 04/10/17 20:59 Rivaroxaban (Xarelto Tab) 15 mg QPM PO 03/11/17 21:00 04/10/17 20:59 Ferrous Sulfate (Feosol Tab) 325 mg BID PO 03/11/17 21:00 04/10/17 20:59 Levetiracetam 500 mg/Dextrose 105 ml @ 420 mls/hr Q12@0600,1800 IV 03/12/17 06:00 04/11/17 05:59 03/12/17 06:06 420 MLS/HR Vancomycin HCl (Consult) 1 ea UD PRN N/A 03/11/17 18:45 04/10/17 18:44 Objective Vital Signs Date Time Temp Pulse Resp B/P (MAP) Pulse Ox O2 Delivery O2 Flow Rate FiO2 03/12/17 08:15 Oxymask 15.0 03/12/17 07:25 36.4 81 18 158/84 (108) 91 Nasal Cannula 03/12/17 04:00 Oxymask 10.0 03/12/17 03:53 37.0 68 22 151/87 (108) 98 Oxymask 6.0 03/12/17 00:00 Oxymask 10.0 03/12/17 00:00 37.2 78 18 141/83 (102) 92 Nasal Cannula 10.0 03/11/17 20:00 Oxymask 10.0 03/11/17 18:18 36.7 64 16 150/89 (109) 96 Non-Rebreather 13.0 03/11/17 17:49 81 20 132/92 97 Non-Rebreather 15.0 03/11/17 17:14 Non-Rebreather 15.0 03/11/17 16:36 37.3 70 16 138/87 98 BiPAP 50 03/11/17 16:00 73 95 50 03/11/17 15:49 74 18 149/87 100 BiPAP 50 03/11/17 14:29 94 Nasal Cannula 4.0 03/11/17 14:19 93 Nasal Cannula 4.0 03/11/17 14:16 74 14 113/66 84 Room Air 03/11/17 14:16 71 03/11/17 14:14 85 Room Air Physical Exam Comments: ANTWON: On oxygen, arouses to verbal stimuli, but unintelligible speech. neck: supple, no JVD, no adenopathy resp: coarse breath sounds, no respiratory distress noted. chest non tender heart: RRR, no murmurs, no pedal edema noted abd: soft, nontender, no organomegaly extremities:no pedal edema skin: dry patient has galvez: with concentrated urine in bag. Laboratory Results Last 24 Hours Test 03/11/17 15:04 03/11/17 15:27 03/11/17 15:29 03/11/17 15:32 Bedside Glucose 132 mg/dl Bedside Lactic Acid Venous 13.20 mmol/L Venous Blood pH 7.26 Venous Blood Partial Pressure CO2 33 mmHg Venous Blood Partial Pressure O2 55 mmHg Venous Blood HCO3 14 mmol/L Venous Blood Oxygen Saturation 80.5 % Venous Blood Base Excess -11.8 mEq/L Bedside Hemoglobin 12.2 g/dl Bedside Hematocrit 36 % Bedside Sodium 130 mEq/L Bedside Potassium 3.9 mEq/L Bedside Chloride 95 mEq/L Bedside Total CO2 13 mEq/l Anion Gap 26.0 mmol/L Bedside Blood Urea Nitrogen 15 mg/dl Bedside Creatinine 0.9 mg/dl Bedside Glucose (other) 135 mg/dl Bedside Ionized Calcium (Kirby) 1.17 mmol/l Test 03/11/17 15:46 03/11/17 16:00 03/11/17 19:00 03/11/17 19:43 White Blood Count 7.66 K/uL Red Blood Count 3.73 M/uL Hemoglobin 11.7 g/dL Hematocrit 33.7 % Mean Corpuscular Volume 90.3 fL Mean Corpuscular Hemoglobin 31.4 pg Mean Corpuscular Hemoglobin Concent 34.7 g/dl Platelet Count 191 K/uL Mean Platelet Volume 8.7 fL Neutrophils (%) (Auto) 85.8 % Lymphocytes (%) (Auto) 4.7 % Monocytes (%) (Auto) 8.5 % Eosinophils (%) (Auto) 0.1 % Basophils (%) (Auto) 0.1 % Neutrophils # (Auto) 6.57 K/uL Lymphocytes # (Auto) 0.36 K/uL Monocytes # (Auto) 0.65 K/uL Eosinophils # (Auto) 0.01 K/uL Basophils # (Auto) 0.01 K/uL RDW Standard Deviation 47.7 fL RDW Coefficient of Variation 14.4 % Immature Granulocyte % (Auto) 0.8 % Immature Granulocyte # (Auto) 0.06 K/uL Prothrombin Time 14.7 SECONDS Prothromb Time International Ratio 1.4 Activated Partial Thromboplast Time 26.2 SECONDS Partial Thromboplastin Ratio 1.0 D-Dimer 5240 ug/L FEU Sodium Level 129 mmol/L Potassium Level 3.9 mmol/L Chloride Level 97 mmol/L Carbon Dioxide Level 18 mmol/L Anion Gap 14.0 mmol/L Blood Urea Nitrogen 14 mg/dl Creatinine 1.20 mg/dl Estimated GFR () 63.1 Estimated GFR (Non- 54.4 BUN/Creatinine Ratio 11.5 Random Glucose 128 mg/dl Calcium Level 8.6 mg/dl Total Bilirubin 0.9 mg/dl Aspartate Amino Transf (AST/SGOT) 40 U/L Alanine Aminotransferase (ALT/SGPT) 27 U/L Alkaline Phosphatase 116 U/L Total Creatine Kinase 111 U/L Creatine Kinase MB 2.3 ng/ml Creatine Kinase MB Ratio 2.1 Troponin I < 0.015 ng/ml Pro-B-Type Natriuretic Peptide 3294 pg/ml Total Protein 6.2 gm/dl Albumin 3.5 gm/dl Globulin 2.7 gm/dl Albumin/Globulin Ratio 1.3 Thyroid Stimulating Hormone (TSH) 2.340 uIu/ml Urine Color YELLOW Urine Appearance CLEAR Urine pH 5.5 Urine Specific [place] 1.023 Urine Protein TRACE Urine Glucose (UA) NEG Urine Ketones NEG Urine Occult Blood TRACE Urine Nitrite NEG Urine Bilirubin NEG Urine Urobilinogen NEG Urine Leukocyte Esterase NEG Urine WBC (Auto) 1-5 /hpf Urine RBC (Auto) 5-10 /hpf Urine Hyaline Casts (Auto) 1-5 /lpf Urine Epithelial Cells (Auto) 10-20 /lpf Urine Bacteria (Auto) NEG Influenza Type A Antigen Neg for Influ A Influenza Type B Antigen Neg for Influ B Lactic Acid Level 3.6 mmol/L Test 03/11/17 21:42 03/12/17 05:53 03/12/17 05:58 03/12/17 10:20 Troponin I 0.044 ng/ml 0.178 ng/ml White Blood Count 8.35 K/uL Red Blood Count 3.83 M/uL Hemoglobin 11.9 g/dL Hematocrit 34.6 % Mean Corpuscular Volume 90.3 fL Mean Corpuscular Hemoglobin 31.1 pg Mean Corpuscular Hemoglobin Concent 34.4 g/dl Platelet Count 192 K/uL Mean Platelet Volume 8.8 fL Neutrophils (%) (Auto) 78.7 % Lymphocytes (%) (Auto) 5.7 % Monocytes (%) (Auto) 15.3 % Eosinophils (%) (Auto) 0.0 % Basophils (%) (Auto) 0.1 % Neutrophils # (Auto) 6.56 K/uL Lymphocytes # (Auto) 0.48 K/uL Monocytes # (Auto) 1.28 K/uL Eosinophils # (Auto) 0.00 K/uL Basophils # (Auto) 0.01 K/uL RDW Standard Deviation 48.7 fL RDW Coefficient of Variation 14.8 % Immature Granulocyte % (Auto) 0.2 % Immature Granulocyte # (Auto) 0.02 K/uL Sodium Level 131 mmol/L Potassium Level 3.7 mmol/L Chloride Level 99 mmol/L Carbon Dioxide Level 23 mmol/L Anion Gap 9.0 mmol/L Blood Urea Nitrogen 11 mg/dl Creatinine 0.89 mg/dl Est Creatinine Clear Calc Drug Dose 63.4 ml/min Estimated GFR () 89.7 Estimated GFR (Non- 77.4 BUN/Creatinine Ratio 12.8 Random Glucose 99 mg/dl Calcium Level 8.9 mg/dl Venous Blood pH 7.41 Venous Blood Partial Pressure CO2 36 mmHg Venous Blood Partial Pressure O2 29 mmHg Venous Blood HCO3 23 mmol/L Venous Blood Oxygen Saturation < 60.0 % Venous Blood Base Excess -1.5 mEq/L Assessment and Plan A/P 1. Altered mental status ER mentions possible seizure. Unsure of cause. Appreciate neuro input. May be due to cardio, hyponatremia, infection, dehydration. In regards to cardio being a cause, patient does have a pacemaker, and a. fib. Awaiting cardiology input. In regards to infection pulmonary source unlikely given his negative imaging. Interesting WBC have never been elevated and patient is not showing signs of SIRS. Patient currently on vanco/azithromycin/ceftriaxone. also ordered procalcitonin which is normal. will consult ID as to which direction to go with the antibiotics. Cultures are pending. In regards to dehydration, patient is currently hyponatremic. However, do not see history of diarrhea and vomiting. will continue to hydrate patient however. Lactate acid improved. will order urine sodium and urine osmolality 2.elevated trop Troponins are elevating as well as will obtain repeat trop. 3.hypertension continue home meds hyperlipidemia continue lipitor H/O Gi bleed: will place on PPI A. fib with SSS consulted cardio. continue with xarelto. If patient mental status does not improve today. will discuss other options with cardio. 5 cm aneurysm Unsure if this is new. reviewing previous records from admits in the past. Will discuss with family if they are aware of this. Code status: do not resuscitate Update: 2:00 I talked with the daughter Soniya, and his friend, Iliana. They were not aware of the aortic aneurysm. They mentioned that he had a cough over the past 2 weeks, but after treatment, his cough improved about 2-3 days ago. Soniya believes that he had not been drinking enough fluids. I informed them of our plan and that we are waiting for multiple studies at this time. Update: 18:00 Patient has been positive 1 liter and has been coughing. will stop iv fluids overnight. and monitor in AM. Last troponin has been trending down. Continued [facility] stay due to: ambulation difficulties, multiple IV medications needed, other Discharge planning: uncertain
[2017-03-12] MEDS ORDERED: PIPERACILL/TAZOBAC IV 3.375 GM in DEXTROSE 5% 100ML IV ONE (13:00)
[2017-03-12] MEDS ORDERED: CEFTRIAXONE SOD INJ 1 GM in DEXTROSE 5% ADD-VANTAGE 50ML 50 ML IV SCH (17:00)
--- NOTE | 2017-03-12 17:28 | CARDIOLOGY CONSULTATION ---
DATE OF CONSULTATION: 03/12/2017 REQUESTING: Roosevelt Muñiz DO. WELDING ENGINEER: Alexandro Bartlett D.O, [facility] Cardiology. REASON FOR CONSULTATION: Minimal troponin elevation, chronic atrial fibrillation, known pacemaker, elevated CHADS2-VASc score. Dear Dr. Muñiz: Thank you for requesting cardiology consultation on [place] with regards to his slightly elevated troponin, chronic atrial fibrillation, VVI pacemaker with a Medtronic Advisa MRI compatible device and elevated CHADS2-VASc score. He was admitted to the hospital with increasing confusion, especially over the last week to 10 days. His daughter is here today and she notes every February he tends to get an upper respiratory tract infection. It sounds like he was placed on Zithromax and he may have been on a second antibiotic as well. Their concern was that the antibiotics have made him more confused as well as the infection. He has had a very severe productive cough. Yesterday, he was with his friend and he had a fall. She describes he did not lose consciousness. He slowly fell to the floor. He did not hit his head. He seemed more confused. He was also hypoxic and was brought to the Emergency Room. In the Emergency Room, he complained of shortness of breath and fatigue. There is also concern that he became obtunded and may have had a seizure and even his friend notes he may have had a seizure at home. He was placed on BiPAP, which improved his respiratory symptoms. He is currently in his room. He still is confused. He does not know he is in the hospital. He did not know the year, nor the month. He denies any chest pain, chest pressure, chest heaviness, although many other questions he responds yes to everything. Therefore, obtaining a review of systems is not possible. PAST MEDICAL HISTORY: 1. Chronic atrial fibrillation, off beta nadege secondary to bradycardia. 2. Status post single chamber Medtronic Advisa SR MRI compatible device in a VVI mode. 3. History of frequent PVCs. 4. CHADS2-VASc score of 5 given his age, cardioembolic event and left ventricular dysfunction. 5. History of mild left ventricular dysfunction in 02/2015 with an EF in the range of 50%. 6. 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 7. Hypertension. 8. GERD. FAMILY HISTORY: Significant for GI malignancy. 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 He is with his passing away in October of 2013. He has 1-2 alcoholic beverages a week. He denies any tobacco. ALLERGIES: No known drug allergies. INPATIENT MEDICATIONS: Reviewed in electronic medical record. PHYSICAL EXAMINATION: GENERAL: He is awake, alert. He is oriented to person only. VITAL SIGNS: His heart rate is 68, respirations 20, blood pressure 131/81. His pulse ox is 95% on a 15% OxyMask. HEENT: 2+ carotid upstrokes, no evidence of carotid bruits. Jugular venous pressure appeared normal. Sclera is anicteric. His hearing is normal. LUNGS: Crackles bilaterally. No rhonchi or wheezing. HEART: Regular rate and rhythm (paced). No appreciable murmurs, rubs or gallops. ABDOMEN: Soft, nontender, nondistended, positive bowel sounds. EXTREMITIES: No clubbing, cyanosis or edema. PSYCHIATRIC: Unobtainable. NEUROLOGIC: As discussed above. EKG, atrial fibrillation ventricularly paced. LABORATORY STUDIES: His troponins are minimally elevated. His BNP is 3294. His BUN is 14 with creatinine of 1.2. His third troponin is 0.184. TSH is normal. Sodium 131, potassium 3.7, BUN 11, creatinine 0.89. Urine cultures and blood cultures are pending. Carotid ultrasound without significant disease. CTA of his chest, abdomen: No central pulmonary emboli. The ascending aorta is dilated at 5 cm. IMPRESSION: 1. Confusion, fall, possible seizure, likely based on his underlying metabolic conditions including possible infection and hyponatremia. 2. 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 3. CHADS2-VASc score of 5 given his age, cardioembolic event and left ventricular dysfunction. 4. History of mild left ventricular dysfunction. 5. History of gastrointestinal bleed 09/22/2016, requiring transfusion. 6. Hemorrhoidal bleed 01/18/2017. 7. Confusion, even present in April 2016, when I last saw him. From a cardiac standpoint, there is nothing to suggest his pacemaker is not functioning normally. It sounds like he has had a URI and bronchitis. His BNP is slightly elevated and we will have to watch his volume status as he may need low dose diuretics, as he continues to stabilize. His troponin is likely related to demand ischemia and his underlying illness and does not represent an acute coronary syndrome. The other big issue is with regards to chronic anticoagulation. We know that he had a stroke related to his atrial fibrillation in the past. His CHADS2-VASc score is significantly elevated, which puts him at high risk for having another stroke. The challenge is he had a fall and possible seizure. He has also had some unsteadiness in his feet. He has also had a GI bleed and also had hemorrhoidal bleed and at some point the risk of anticoagulation is going to be greater than the benefit and we may be approaching that point. We will have to see how he recovers through this hospitalization to assess whether he should go back on Xarelto. We will continue to follow along with you. Thank you for allowing us to participate in his care.
--- NOTE | 2017-03-12 17:48 | Medical Consult ---
Consultation Date of Consultation: Mar 12, 2017. Attending Physician: Roosevelt Muñiz D.O. Reason for Consultation: Unidentified source of infection History of Present Illness History obtained from medical records and medical staff as patient unable to provide adequate history. 86-year-old male with history of atrial fibrillation, sick sinus syndrome, status post permanent pacemaker, hypertension, hyperlipidemia, resident of an assisted living facility, who apparently over the last week prior to admission was complaining of some cough and shortness of breath, then developed confusion , mild dysuria, and hypoxia. Was brought to the emergency department, and subsequently suffered gram out seizure. He has had unremarkable head CT, and chest CT without evidence of pneumonia or pulmonary emboli. He has been started on broad-spectrum antibiotics. Cultures are no growth to date. Past Medical/Surgical History Medical Problems: (1) Altered mental status Status: Acute (2) Bleeding internal hemorrhoids Status: Acute (3) Constipation Status: Acute (4) Epistaxis Status: Acute (5) Hypoxia Status: Acute (6) Lactic acidosis Status: Acute (7) PNA (pneumonia) Status: Acute (8) Respiratory failure Status: Acute (9) Severe anemia Status: Acute (10) Sinusitis Status: Acute (11) Skin lesion of scalp Status: Acute (12) Vertigo Status: Acute (13) Weakness Status: Acute Medical Problems: (1) Acute bronchitis (2) Anemia (3) Arm paresthesia, right (4) Arm paresthesia, right (5) GERD (gastroesophageal reflux disease) (6) HTN (hypertension) (7) Hyperlipidemia (8) URI (upper respiratory infection) Surgical Problems: (1) H/O hernia repair Family History GI malignancy Social History Smoking Status: Never Smoker Smokeless Tobacco Use: No Alcohol Use: occasionally Drug Use: none Marital Status: Housing Status: assisted living Occupation Status: retired Allergies Coded Allergies: No Known Allergies (Verified , 03/11/17) Current Inpatient Medications Current Inpatient Medications Medications (Trade) Dose Ordered Sig/Tanesha Route Start Time Stop Time Status Last Admin Dose Admin Ioversol (Optiray 320) 100 ml UD PRN IV 03/11/17 15:45 03/15/17 15:44 Sodium Chloride 1,000 ml @ 100 mls/hr Q10H IV 03/11/17 16:45 04/10/17 16:44 9/17/17 17:29 100 MLS/HR Acetaminophen (Tylenol Tab) 650 mg Q4H PRN PO 03/11/17 16:45 04/10/17 16:44 Ondansetron HCl (Zofran Inj) 4 mg Q6H PRN IV 03/11/17 16:45 04/10/17 16:44 Vancomycin HCl 1250 mg/Sodium Chloride 275 ml @ 125 mls/hr Q16H IV 03/12/17 11:00 03/18/17 18:59 03/12/17 10:45 125 MLS/HR Atorvastatin Calcium (Lipitor Tab) 40 mg QPM PO 03/11/17 21:00 04/10/17 20:59 Cetirizine HCl (zyrTEC TAB) 10 mg QPM PO 03/11/17 21:00 04/10/17 20:59 Docusate Sodium (coLACE CAP) 100 mg BID PO 03/11/17 21:00 04/10/17 20:59 Finasteride (Proscar Tab) 5 mg QPM PO 03/11/17 21:00 04/10/17 20:59 Lisinopril (Zestril Tab) 2.5 mg QAM PO 03/12/17 09:00 04/11/17 08:59 Metoprolol Succinate (Toprol Xl Tab) 25 mg QPM PO 03/11/17 21:00 04/10/17 20:59 Pantoprazole Sodium (Protonix Tab) 40 mg BID PO 03/11/17 21:00 04/10/17 20:59 Rivaroxaban (Xarelto Tab) 15 mg QPM PO 03/11/17 21:00 04/10/17 20:59 Ferrous Sulfate (Feosol Tab) 325 mg BID PO 03/11/17 21:00 04/10/17 20:59 Levetiracetam 500 mg/Dextrose 105 ml @ 420 mls/hr Q12@0600,1800 IV 03/12/17 06:00 04/11/17 05:59 03/12/17 17:29 420 MLS/HR Vancomycin HCl (Consult) 1 ea UD PRN N/A 03/11/17 18:45 04/10/17 18:44 Piperacillin Sod/ Tazobactam Sod 3.375 gm/Dextrose 115 ml @ 28.75 mls/ hr Q8H IV 03/12/17 20:00 03/19/17 19:59 Review of Systems not able to obtain because of patient's mental status Physical Exam Date Time Temp Pulse Resp B/P (MAP) Pulse Ox O2 Delivery O2 Flow Rate FiO2 03/12/17 16:08 36.6 67 18 148/91 (110) 96 Nasal Cannula 5.0 03/12/17 16:00 Oxymask 15.0 03/12/17 12:00 Oxymask 15.0 03/12/17 11:55 36.8 68 20 131/81 (98) 97 Oxymask 15.0 03/12/17 11:34 89 03/12/17 08:15 Oxymask 15.0 03/12/17 07:25 36.4 81 18 158/84 (108) 91 Nasal Cannula 03/12/17 04:00 Oxymask 10.0 03/12/17 03:53 37.0 68 22 151/87 (108) 98 Oxymask 6.0 03/12/17 00:00 Oxymask 10.0 03/12/17 00:00 37.2 78 18 141/83 (102) 92 Nasal Cannula 10.0 03/11/17 20:00 Oxymask 10.0 03/11/17 18:18 36.7 64 16 150/89 (109) 96 Non-Rebreather 13.0 03/11/17 17:49 81 20 132/92 97 Non-Rebreather 15.0 General Appearance: WD/WN, no apparent distress Head: normocephalic, atraumatic Eyes: normal inspection, EOMI, sclerae normal ENT: normal ENT inspection, pharynx normal Neck: supple, no adenopathy, thyroid normal, trachea midline Respiratory/Chest: chest non-tender, lungs clear, normal breath sounds, no respiratory distress Cardiovascular: regular rate, rhythm, no gallop, no murmur Abdomen/GI: normal bowel sounds, non tender, soft, no organomegaly Back: normal inspection, no CVA tenderness Extremities/Musculoskelatal: no calf tenderness, non-tender Neurologic/Psych: alert, + disoriented Skin: normal color, warm/dry, no rash Lymphatic: no adenopathy Laboratory Results Date/Time Source Procedure Growth Status 03/11/17 19:00 Nasal MRSA DNA Surveillance Screen - Final Specimen Negative for MRSA by DNA Probe Complete Last 24 Hours Test 03/11/17 19:00 03/11/17 19:43 03/11/17 21:42 03/12/17 05:53 Influenza Type A Antigen Neg for Influ A Influenza Type B Antigen Neg for Influ B Lactic Acid Level 3.6 mmol/L Troponin I 0.044 ng/ml 0.178 ng/ml White Blood Count 8.35 K/uL Red Blood Count 3.83 M/uL Hemoglobin 11.9 g/dL Hematocrit 34.6 % Mean Corpuscular Volume 90.3 fL Mean Corpuscular Hemoglobin 31.1 pg Mean Corpuscular Hemoglobin Concent 34.4 g/dl Platelet Count 192 K/uL Mean Platelet Volume 8.8 fL Neutrophils (%) (Auto) 78.7 % Lymphocytes (%) (Auto) 5.7 % Monocytes (%) (Auto) 15.3 % Eosinophils (%) (Auto) 0.0 % Basophils (%) (Auto) 0.1 % Neutrophils # (Auto) 6.56 K/uL Lymphocytes # (Auto) 0.48 K/uL Monocytes # (Auto) 1.28 K/uL Eosinophils # (Auto) 0.00 K/uL Basophils # (Auto) 0.01 K/uL RDW Standard Deviation 48.7 fL RDW Coefficient of Variation 14.8 % Immature Granulocyte % (Auto) 0.2 % Immature Granulocyte # (Auto) 0.02 K/uL Sodium Level 131 mmol/L Potassium Level 3.7 mmol/L Chloride Level 99 mmol/L Carbon Dioxide Level 23 mmol/L Anion Gap 9.0 mmol/L Blood Urea Nitrogen 11 mg/dl Creatinine 0.89 mg/dl Est Creatinine Clear Calc Drug Dose 63.4 ml/min Estimated GFR () 89.7 Estimated GFR (Non- 77.4 BUN/Creatinine Ratio 12.8 Random Glucose 99 mg/dl Calcium Level 8.9 mg/dl Test 03/12/17 05:58 03/12/17 10:20 03/12/17 12:53 03/12/17 13:00 Venous Blood pH 7.41 Venous Blood Partial Pressure CO2 36 mmHg Venous Blood Partial Pressure O2 29 mmHg Venous Blood HCO3 23 mmol/L Venous Blood Oxygen Saturation < 60.0 % Venous Blood Base Excess -1.5 mEq/L Lactic Acid Level 1.5 mmol/L Troponin I 0.184 ng/ml 0.169 ng/ml Procalcitonin < 0.05 ng/ml Osmolality 270 mOsm/kg Urine Osmolality 670 mOms/kg Urine Random Sodium 17 mEq/L Patient Name: SHARMILA MERINO Unit Number: [id number] Dictated: 03/11/171542 Transcribed: 03/11/171542 ARG Printed Date/Time: [~ rep prt dt]/[~ rep prt tm] [~ rep ct labl] - [~ rep ct ivnm] [facility] [place] [address] Dictated: 03/11/171542 Transcribed: 03/11/171542 ARG Printed Date/Time: [~ rep prt dt]/[~ rep prt tm] [~ rep ct labl] - [~ rep ct ivnm] [~ rep ct add3]] CT ANGIOGRAM OF THE CHEST CLINICAL HISTORY: Shortness of breath. Possible acute pulmonary embolism. COMPARISON STUDY: Chest x-ray dated 03/11/2017 TECHNIQUE: Following the IV administration of 117 mL of Optiray-320, CT angiogram of the thorax was performed from the thoracic inlet to the lung bases utilizing the pulmonary embolus protocol. Images are reviewed in the axial, sagittal, and coronal planes. IV contrast was administered without complication. MIP imaging was performed. A dose lowering technique was utilized adhering to the principles of ALARA. CT DOSE: 2176.20 mGy.cm FINDINGS: There is a partially visualized 3.7 mm left renal hypodensity, likely representing a cyst. There is a hiatal hernia. The heart is enlarged. No pathologically enlarged axillary mediastinal or hilar lymph nodes were visualized. 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 There are coronary artery calcifications present. Pulmonary artery evaluation is limited due to respiratory motion artifact. No central emboli are delineated. No pleural effusions are visualized. There is respiratory motion artifact. There is dependent atelectatic change. IMPRESSION: 1. Study compromised due to respiratory motion artifact 2. No central pulmonary emboli identified. If there is persistent strong clinical concern of acute pulmonary embolism, correlation with serial leg ultrasonography should be obtained 3. Cardiomegaly 4. 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 03/11/2017 3:47 PM Dictated Date/Time: 03/11/2017 3:43 PM The status of this report is Signed. Draft = Not yet reviewed or approved by Radiologist. Signed = Reviewed and approved by Radiologist. <AttendingPhy></AttendingPhy> <FamilyPhy>Tania Kowalski</FamilyPhy> < PrimaryPhy>Wesley Gabriel M.D.</PrimaryPhy> <UnitNumber>[id number]</UnitNumber > <VisitNumber>[id number]</VisitNumber> <PatientName>SHARMILA MERINO</ PatientName> <DateOfBirth>1930</DateOfBirth> <Location>[facility]</Location> < ServiceDate>03/11/17</ServiceDate> <MNE>ESINDI</MNE> <OrderingPhy>Simón Calzada D.O.</OrderingPhy> <OrderingPhyMNE>f rep ord dr larson</OrderingPhyMNE> <DictatingPhyMNE>f rep dict dr larson</DictatingPhyMNE> <CCListMNE>f rep ct mne</ CCListMNE> <AdmittingPhyMNE>f pt admit dr larson</AdmittingPhyMNE> <AttendingPhyMNE >f pt attend dr larson</AttendingPhyMNE> <ConsultingPhyMNE>f pt consult dr larson</ConsultingPhyMNE> <FamilyPhyMNE>f pt fam dr larson</FamilyPhyMNE> <OtherPhyMNE>f pt other dr larson</OtherPhyMNE> < PrimaryPhyMNE>f pt prim care dr larson</PrimaryPhyMNE> <ReferringPhyMNE>f pt referring dr larson</ReferringPhyMNE> Assessment & Plan acute encephalopathy with seizures following what appeared to be upper respiratory tract infection. I am concerned about the possibility of zoster encephalitis, and have ordered acyclovir pending (hopefully) MRI scanning. Would continue antibiotics for possible aspiration pneumonia pending final culture results and follow up chest x-ray. Will follow.
[2017-03-12] MEDS: ACYCLOVIR SOD INJ 800 MG in DEXTROSE 5% 250ML 250 ML IV SCH (18:41)
[2017-03-12] MEDS: FINASTERIDE 5 MG TAB PO SCH (20:16)
[2017-03-12] MEDS: ATORVASTATIN 20 MG TAB PO SCH (20:16)
[2017-03-12] MEDS: PIPERACILL/TAZOBAC IV 3.375 GM in DEXTROSE 5% 100ML IV SCH (20:16)
[2017-03-12] MEDS: METOPROLOL SUCC 25MG EXT REL TAB PO SCH (20:17)
[2017-03-12] MEDS: CETIRIZINE HCL 10 MG TAB PO SCH (20:17)
[2017-03-12] MEDS: RIVAROXABAN TAB 15 MG TAB PO SCH (20:17)
[2017-03-12 21:25] LABS: BUN/CREATININE RATIO 14.2 (10-20); CALCIUM 8.7 mg/dl (8.5-10.1); CREATININE 0.96 mg/dl (0.60-1.40); POTASSIUM 3.8 mmol/L (3.5-5.1)
[2017-03-13] VITALS (14 sets, daily range): BP systolic 137–203; BP diastolic 88–108; PULSE 49–97; TEMP 36.4–36.6; O2SAT 91–100
[2017-03-13] MEDS ORDERED: VANCOMYCIN TROUGH SCH (02:30)
[2017-03-13] MEDS: VANCOMYCIN INJ 1,250 MG in SODIUM CHLORIDE 0.9% 250ML 250 ML IV SCH ×2 (03:34→18:36)
[2017-03-13] MEDS: ACYCLOVIR SOD INJ 800 MG in DEXTROSE 5% 250ML 250 ML IV SCH ×3 (03:34→18:35)
[2017-03-13] MEDS: PIPERACILL/TAZOBAC IV 3.375 GM in DEXTROSE 5% 100ML IV SCH ×3 (04:57→20:14)
[2017-03-13 05:56] LABS: BASO % 0.1 %; BASO ABS # 0.01 K/uL (0-0.2); COMPLETE YES; IG% 0.2 %; LYMPH % 4.6 %; LYMPH ABS # 0.45 K/uL (1.2-3.4); MEAN CELL VOLUME 90.2 fL (80-100); MEAN CORPUSCULAR HEMOGLOBIN 30.8 pg (25-34); MEAN CORPUSCULAR HGB CONC 34.2 g/dl (32-36); MEAN PLATELET VOLUME 8.8 fL (7.4-10.4); MONO % 7.3 %; NEUT % 87.8 %; PLATELET COUNT 155 K/uL (130-400); RED BLOOD COUNT 3.99 M/uL (4.7-6.1); WHITE BLOOD COUNT 9.88 K/uL (4.8-10.8)
[2017-03-13] MEDS: LEVETIRACETAM IV 500 MG in DEXTROSE 5% 100ML 100 ML IV SCH ×2 (06:28→18:15)
[2017-03-13] MEDS: SODIUM CHLORIDE 0.9% 1000ML 1,000 ML IV SCH ×3 (06:28→22:25)
[2017-03-13 06:34] LABS: BUN/CREATININE RATIO 17.1 (10-20); CALCIUM 8.5 mg/dl (8.5-10.1); CREATININE 0.89 mg/dl (0.60-1.40); POTASSIUM 3.6 mmol/L (3.5-5.1)
--- NOTE | 2017-03-13 08:42 | Clinical Documentation Query ---
CLINICAL VALIDATIONS 86 yo male sent to the ER from [facility] for worsening cough and confusion. In your clinical opinion is this patient being managed for: ( x ) Metabolic encephalopathy in the setting of hypoxia, , hyponatremia, , and seizure ( ) Not Agree (removed elevated troponin, as this is an additional effect of the physiologic stress that caused his encephalopathy, not an additional cause; removed CHF as it's not clear he's having active CHF right now) Metabolic encephalopathy is always due to an underlying cause. There are many causes of metabolic encephalopathy. Metabolic encephalopathy is also a common finding in 12-33% of patients suffering from multiple organ failure. The development of metabolic encephalopathy may be the first manifestation of a critical systemic illness and may be caused by various reasons--one of the most important being sepsis. Risk Factors: *severe electrolyte imbalances, *acute and chronic renal failure, *sepsis, *hypoxia, *severe nutritional deficiencies, *SIRS d/t a non-infection process (pandey, trauma) Clinical Indicators: The main features of reversible metabolic encephalopathy are confusion, typified by disorientation and inattentiveness and accompanied in certain special instances by asterixis, tremor, and myoclonus, usually without signs of focal cerebral disease. This state may progress in stages to one of stupor and coma. Slowing of the background rhythms in the electroencephalogram (EEG) reflects the severity of the metabolic disturbance. Seizures may or may not occur, most being associated with particular underlying causes of encephalopathy such as hyponatremia and hyperosmolarity. Infectious diseases consult documented possible aspiration pneumonia. 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 Depending on the acidity of the aspirate, a chemical pneumonitis can develop, and bacterial pathogens may add to the inflammation leading to the consideration of this type of pneumonia as a "complex" pneumonia. Risk Factors: any condition that results in difficulty handling secretions (CVA, Parkinson's, Alzheimer's, dementia), GERD, gastroparesis, poor cough reflex, tube feedings Clinical Indicators: low grade temp, "noisy" cough, foul smelling breath or sputum, hypoxia, elevated WBC, decreased appetite, lethargy, RLL infiltrate by CXR (patient may aspirate into other lobes as well) Diagnostics: CXR, sputum C&S, serial labs, swallow study Treatment Regimen: HOB elevated, supervised meals, frequent tracheal suctioning, 02 support, chest PT, mechanical ventilation, IV antibiotics: Clindamycin for patients at chronic aspiration risk, putrid sputum, indolent hospital course, or necrotizing pneumonia; if the patient is toxic appearing expect Rocephin + Zithromax, or Levaquin; and patients with a recent hospitalization may be placed on Piperacillin + Tazobactam or Imipenem + Vancomycin Infectious disease consult has stated the patient may have possible Zoster encephalitis and started treatment with IV Acyclovir. For further clarification: In your clinical opinion is this patient being managed for: ( ) Possible zoster encephalitis (x ) Not Agree (for further clarification please query infectious disease, as to my clinical review the situation appears consistent with metabolic encephalopathy due to pneumonia and hyponatremia) Please clarify and document your clinical opinion in the progress notes and discharge summary. Terms such as "probable", "suspected", "likely", "questionable", "possible", or "still to be ruled out" are acceptable. IF IN AGREEMENT, YOU MUST DOCUMENT ABOVE DIAGNOSTIC STATEMENT IN DAILY PROGRESS NOTES AND DISCHARGE SUMMARY. This document is not part of the patient's record. Thank You, Estefany Adkins RN [phone]
[2017-03-13] MEDS: DOCUSATE SODIUM 100 MG CAP PO SCH ×2 (09:00→20:14)
[2017-03-13] MEDS: LISINOPRIL 2.5 MG TAB PO SCH (09:00)
[2017-03-13] MEDS: FERROUS SULFATE 325 MG TAB PO SCH ×2 (09:00→20:14)
--- NOTE | 2017-03-13 09:34 | EEG Procedure Note ---
EEG Procedure Note Date of Service Mar 13, 2017. Start / End Times Start Time: 8:02 AM End Time: 8:22 AM Referring Physician Axel Muñiz History This is a 86-year-old male with acute change in mental status and new onset seizure. EEG for further evaluation of possible seizure etiology. Home Medication List Scheduled Atorvastatin (Lipitor), 40 MG PO QPM Cetirizine (Zyrtec), 10 MG PO QPM Docusate Sodium (Docusate Sodium), 100 MG PO BID Ferrous Sulfate (Kp Ferrous Sulfate), 325 MG PO BID Finasteride (Proscar), 5 MG PO QPM Hydrocortisone 2.5% (Rectal) (Anusol-Hc 2.5%), 1 APPLN TOP BID Levofloxacin (Levaquin), 750 MG PO DAILY Lisinopril (Zestril), 2.5 MG PO QAM Magnesium Oxide (Mag-Ox), 400 MG PO QAM Metoprolol Succinate (Toprol Xl), 25 MG PO QPM Pantoprazole (Protonix), 40 MG PO BID Rivaroxaban (Xarelto), 15 MG PO QPM Wheat Dextrin (Benefiber Drink Mix), 2 TSP PO DAILY Scheduled PRN Dextromethorphan-Guaifenesin (Guaifenesin Dm), 10 ML PO Q4H PRN for Cough Echinacea (Echinacea), 400 MG PO TID PRN for URI Inpatient Medication List Current Inpatient Medications Medications (Trade) Dose Ordered Sig/Tanesha Route Start Time Stop Time Status Last Admin Dose Admin Ioversol (Optiray 320) 100 ml UD PRN IV 03/11/17 15:45 03/15/17 15:44 Sodium Chloride 1,000 ml @ 70 mls/hr [id number] IV 03/11/17 16:45 04/10/17 16:44 03/13/17 08:57 100 MLS/HR Acetaminophen (Tylenol Tab) 650 mg Q4H PRN PO 03/11/17 16:45 04/10/17 16:44 Ondansetron HCl (Zofran Inj) 4 mg Q6H PRN IV 03/11/17 16:45 04/10/17 16:44 Vancomycin HCl 1250 mg/Sodium Chloride 275 ml @ 125 mls/hr Q16H IV 03/12/17 11:00 03/18/17 18:59 03/13/17 03:34 125 MLS/HR Atorvastatin Calcium (Lipitor Tab) 40 mg QPM PO 03/11/17 21:00 04/10/17 20:59 Cetirizine HCl (zyrTEC TAB) 10 mg QPM PO 03/11/17 21:00 04/10/17 20:59 Docusate Sodium (coLACE CAP) 100 mg BID PO 03/11/17 21:00 04/10/17 20:59 Finasteride (Proscar Tab) 5 mg QPM PO 03/11/17 21:00 04/10/17 20:59 Lisinopril (Zestril Tab) 2.5 mg QAM PO 03/12/17 09:00 04/11/17 08:59 Metoprolol Succinate (Toprol Xl Tab) 25 mg QPM PO 03/11/17 21:00 04/10/17 20:59 Pantoprazole Sodium (Protonix Tab) 40 mg BID PO 03/11/17 21:00 04/10/17 20:59 Rivaroxaban (Xarelto Tab) 15 mg QPM PO 03/11/17 21:00 04/10/17 20:59 Ferrous Sulfate (Feosol Tab) 325 mg BID PO 03/11/17 21:00 04/10/17 20:59 Levetiracetam 500 mg/Dextrose 105 ml @ 420 mls/hr Q12@0600,1800 IV 03/12/17 06:00 04/11/17 05:59 03/13/17 06:28 420 MLS/HR Vancomycin HCl (Consult) 1 ea UD PRN N/A 03/11/17 18:45 04/10/17 18:44 Piperacillin Sod/ Tazobactam Sod 3.375 gm/Dextrose 115 ml @ 28.75 mls/ hr Q8H IV 03/12/17 20:00 03/19/17 19:59 03/13/17 04:57 28.75 MLS/HR Acyclovir Sodium 800 mg/Dextrose 266 ml @ 265 mls/hr Q8H IV 03/12/17 19:00 03/22/17 17:44 03/13/17 03:34 265 MLS/HR Hydralazine HCl (HydrALAZINE INJ) 10 mg Q6 PRN IV. 03/13/17 09:15 04/12/17 09:14 UNV Description This is a 21 electrode EEG with a single channel dedicated to limited EKG. The electrodes were placed in accordance with the International 10-20 system. At the start of this recording the patient was in altered mental status. Background was poorly organized with poorly formed anterior to posterior gradient. Background was composed of symmetric moderate amplitude predominantly 6-7 Hz theta frequencies with intermixed alpha/beta frequencies. Occasionally there was seen a well formed moderate amplitude symmetric 7-8 Hz posterior dominant rhythm. Hyperventilation and photic stimulation were not done. Sleep was indicated by vertex waves and symmetric sleep spindles. Interpretation This is an abnormal routine EEG secondary to mild background disorganization and slowing There was no epileptiform discharges or electrographic seizures Clinical Correlation This EEG indicates mild encephalopathy of nonspecific etiology.
[2017-03-13] MEDS: PANTOprazole SOD 40 MG TAB PO SCH ×2 (09:47→20:14)
[2017-03-13] MEDS: HydrALAZINE HCL 20 MG/ML VIAL IV. PRN (09:48)
--- NOTE | 2017-03-13 10:57 | Neurology Progress Notes ---
Neurology Progress Note Date of Service Mar 13, 2017. Subjective Patient presented with acute encephalopathy and witnessed seizure-like activity in the emergency room. Now on Keppra. Confirmed with daughter that no history of seizure activity in the past. Has had recent upper respiratory infection symptoms and ID would like to rule out zoster. Patient remains confused. No new neurological symptoms. No seizures since admission. EEG read by myself this morning noted some mild slowing and encephalopathy but was otherwise unremarkable. No epileptiform discharges or electrographic seizures. Objective Date Time Temp Pulse Resp B/P (MAP) Pulse Ox O2 Delivery O2 Flow Rate FiO2 03/13/17 07:45 98 Oxymask 15.0 50 03/13/17 06:32 36.4 92 18 175/98 (123) 98 Oxymask 15.0 03/13/17 04:24 173/88 (116) 03/13/17 04:00 Oxymask 15.0 03/13/17 03:47 36.4 79 18 203/91 (128) 91 Oxymask 15.0 03/13/17 00:00 Oxymask 15.0 03/12/17 23:10 92 160/92 (114) 90 Oxymask 15.0 03/12/17 22:58 36.3 92 18 174/92 (119) 90 Oxymask 15.0 03/12/17 20:00 Oxymask 15.0 03/12/17 19:18 36.3 86 18 157/50 (85) 91 Oxymask 15.0 03/12/17 16:08 36.6 67 18 148/91 (110) 96 Oxymask 15.0 03/12/17 16:00 Oxymask 15.0 03/12/17 12:00 Oxymask 15.0 03/12/17 11:55 36.8 68 20 131/81 (98) 97 Oxymask 15.0 03/12/17 11:34 89 Last 24 Hours Test 03/12/17 12:53 03/12/17 13:00 03/12/17 20:54 03/13/17 05:41 Osmolality 270 mOsm/kg Troponin I 0.169 ng/ml 0.148 ng/ml Urine Osmolality 670 mOms/kg Urine Random Sodium 17 mEq/L Sodium Level 130 mmol/L 131 mmol/L Potassium Level 3.8 mmol/L 3.6 mmol/L Chloride Level 100 mmol/L 101 mmol/L Carbon Dioxide Level 20 mmol/L 22 mmol/L Anion Gap 10.0 mmol/L 8.0 mmol/L Blood Urea Nitrogen 14 mg/dl 15 mg/dl Creatinine 0.96 mg/dl 0.89 mg/dl Est Creatinine Clear Calc Drug Dose 58.8 ml/min 63.4 ml/min Estimated GFR () 82.6 89.7 Estimated GFR (Non- 71.3 77.4 BUN/Creatinine Ratio 14.2 17.1 Random Glucose 117 mg/dl 117 mg/dl Calcium Level 8.7 mg/dl 8.5 mg/dl White Blood Count 9.88 K/uL Red Blood Count 3.99 M/uL Hemoglobin 12.3 g/dL Hematocrit 36.0 % Mean Corpuscular Volume 90.2 fL Mean Corpuscular Hemoglobin 30.8 pg Mean Corpuscular Hemoglobin Concent 34.2 g/dl Platelet Count 155 K/uL Mean Platelet Volume 8.8 fL Neutrophils (%) (Auto) 87.8 % Lymphocytes (%) (Auto) 4.6 % Monocytes (%) (Auto) 7.3 % Eosinophils (%) (Auto) 0.0 % Basophils (%) (Auto) 0.1 % Neutrophils # (Auto) 8.68 K/uL Lymphocytes # (Auto) 0.45 K/uL Monocytes # (Auto) 0.72 K/uL Eosinophils # (Auto) 0.00 K/uL Basophils # (Auto) 0.01 K/uL RDW Standard Deviation 48.6 fL RDW Coefficient of Variation 14.9 % Immature Granulocyte % (Auto) 0.2 % Immature Granulocyte # (Auto) 0.02 K/uL Exam: Gen.: Patient is in bed in no acute distress. Has oxygen mask on. HEENT: Normocephalic/atraumatic no scleral icterus Extremities: No rashes noted Neurological examination: Mental status: Patient is alert and oriented to person only. History is not reliable. Speech is fluent without any dysarthria. Question if there could be some expressive aphasia versus delirium. Cranial nerves: Pupils equally round and reactive. Extraocular muscles intact. No facial asymmetries. Strength: Moving all extremities equally and antigravity Current Inpatient Medications Medications (Trade) Dose Ordered Sig/Tanesha Route Start Time Stop Time Status Last Admin Dose Admin Ioversol (Optiray 320) 100 ml UD PRN IV 03/11/17 15:45 03/15/17 15:44 Sodium Chloride 1,000 ml @ 70 mls/hr [id number] IV 03/11/17 16:45 04/10/17 16:44 03/13/17 08:57 100 MLS/HR Acetaminophen (Tylenol Tab) 650 mg Q4H PRN PO 03/11/17 16:45 04/10/17 16:44 Ondansetron HCl (Zofran Inj) 4 mg Q6H PRN IV 03/11/17 16:45 04/10/17 16:44 Vancomycin HCl 1250 mg/Sodium Chloride 275 ml @ 125 mls/hr Q16H IV 03/12/17 11:00 03/18/17 18:59 03/13/17 03:34 125 MLS/HR Atorvastatin Calcium (Lipitor Tab) 40 mg QPM PO 03/11/17 21:00 04/10/17 20:59 Cetirizine HCl (zyrTEC TAB) 10 mg QPM PO 03/11/17 21:00 04/10/17 20:59 Docusate Sodium (coLACE CAP) 100 mg BID PO 03/11/17 21:00 04/10/17 20:59 Finasteride (Proscar Tab) 5 mg QPM PO 03/11/17 21:00 04/10/17 20:59 Lisinopril (Zestril Tab) 2.5 mg QAM PO 03/12/17 09:00 04/11/17 08:59 Metoprolol Succinate (Toprol Xl Tab) 25 mg QPM PO 03/11/17 21:00 04/10/17 20:59 Pantoprazole Sodium (Protonix Tab) 40 mg BID PO 03/11/17 21:00 04/10/17 20:59 Rivaroxaban (Xarelto Tab) 15 mg QPM PO 03/11/17 21:00 04/10/17 20:59 Ferrous Sulfate (Feosol Tab) 325 mg BID PO 03/11/17 21:00 04/10/17 20:59 Levetiracetam 500 mg/Dextrose 105 ml @ 420 mls/hr Q12@0600,1800 IV 03/12/17 06:00 04/11/17 05:59 03/13/17 06:28 420 MLS/HR Vancomycin HCl (Consult) 1 ea UD PRN N/A 03/11/17 18:45 04/10/17 18:44 Piperacillin Sod/ Tazobactam Sod 3.375 gm/Dextrose 115 ml @ 28.75 mls/ hr Q8H IV 03/12/17 20:00 03/19/17 19:59 03/13/17 04:57 28.75 MLS/HR Acyclovir Sodium 800 mg/Dextrose 266 ml @ 265 mls/hr Q8H IV 03/12/17 19:00 03/22/17 17:44 03/13/17 03:34 265 MLS/HR Hydralazine HCl (HydrALAZINE INJ) 10 mg Q6 PRN IV. 03/13/17 09:15 04/12/17 09:14 03/13/17 09:48 10 MG Albuterol/ Ipratropium (Duoneb) 3 ml Q4R INH 03/13/17 12:00 04/12/17 11:59 UNV Albuterol/ Ipratropium (Duoneb) 3 ml 1040 ONCE INH 03/13/17 10:40 03/13/17 10:41 UNV Albuterol Sulfate (Ventolin 0.083% 2.5MG/3ML Neb) 2.5 mg Q2R PRN INH 03/13/17 10:45 04/12/17 10:44 UNV Impression This is a 86-year-old male who presented with acute encephalopathy, hypoxia, upper respiratory infection symptoms, and a single clinical seizure. No side effects identified with Keppra. Likely single clinical seizure secondarily provoked by current medical situation. Acute illness and hypoxia could contribute to encephalopathy. MRI of the brain is pending to rule out other etiologies such as stroke or encephalitis. Plan Agree with MRI of the brain to rule out structural etiologies that could contribute to seizure and acute encephalopathy. Continue Keppra 500 mg twice a day for seizure prophylaxis. Discussed with patient and daughter that in the setting of a single seizure that may been provoked by other medical etiologies, would not likely need antiepileptic medications long-term. Once the patient's acute medical issues have resolved, could reasonably try going off of Keppra. Recommend that if there are still concerns for altered cognition or memory as an outpatient, can follow-up in the neurology clinic for further evaluation of cognitive status. If there is any questions or concerns, feel free to call/patient.
[2017-03-13] MEDS ORDERED: ALBUT/IPRATROP 3MG/0.5MG NEB 3 ML VIAL INH ONE (11:00)
[2017-03-13] MEDS: ALBUT/IPRATROP 3MG/0.5MG NEB 3 ML VIAL INH SCH ×4 (11:30→23:18)
--- NOTE | 2017-03-13 11:35 | DIAGNOSTIC IMAGING REPORT ---
ORBIT RADIOGRAPHS 3 VIEWS HISTORY: pre-MRI screening. COMPARISON: Head CT March 11, 2017. FINDINGS: There are no radiopaque foreign bodies identified within the orbits. IMPRESSION: No radiopaque foreign bodies identified within the orbits. Electronically signed by: Michael Whatley M.D. 03/13/2017 11:34 AM Dictated Date/Time: 03/13/2017 11:34 AM
--- NOTE | 2017-03-13 13:00 | DIAGNOSTIC IMAGING REPORT ---
BRAIN COMBO FOR SEIZURE CLINICAL HISTORY: 86 years-old Male presenting with ?seizure, altered mental status, hypoxia. TECHNIQUE: Multisequence, multiplanar MR imaging of the brain was performed before and after the administration of intravenous contrast. IV contrast: 8 mL of Gadavist. COMPARISON: CT head performed earlier the same day. FINDINGS: Proportional ventricular and sulcal prominence, likely age-related parenchymal volume loss. Periventricular and subcortical white matter T2/FLAIR hyperintensity, nonspecific but likely indicative of chronic small vessel ischemic change. No mass effect or midline shift. No restricted diffusion to suggest acute ischemia. No hemorrhage. No extra-axial fluid collection. T2 skull base flow voids preserved. No abnormal parenchymal enhancement. Bone marrow signal intensity within the calvarium within normal limits. IMPRESSION: 1. Chronic small vessel ischemic change. No acute intracranial abnormality. 2. No abnormal enhancement. Electronically signed by: Demetris Patton M.D. 03/13/2017 12:59 PM Dictated Date/Time: 03/13/2017 12:47 PM
--- NOTE | 2017-03-13 14:02 | Cardiology Follow-Up ---
Subjective General Date of Service: Mar 13, 2017. Pt evaluation today including: conversation w/ patient, conversation w/ family , chart review, lab review, review of studies, conversation w/ bus info consultant History of Present Illness The patient is a 86 year old male Allergies Coded Allergies: No Known Allergies (Verified , 03/11/17) Social History Smoking Status: Never Smoker Hx Tobacco Use In Past Year?: No Hx Alcohol Use - Type And Amou: Yes (OCCASIONALLY) Hx Substance Use - Type And Am: No Problem List Medical Problems: (1) Altered mental status Status: Acute (2) Bleeding internal hemorrhoids Status: Acute (3) Constipation Status: Acute (4) Epistaxis Status: Acute (5) Hypoxia Status: Acute (6) Lactic acidosis Status: Acute (7) PNA (pneumonia) Status: Acute (8) Respiratory failure Status: Acute (9) Severe anemia Status: Acute (10) Sinusitis Status: Acute (11) Skin lesion of scalp Status: Acute (12) Vertigo Status: Acute (13) Weakness Status: Acute Review of Systems Respiratory: + cough, + sputum, + shortness of breath, + dyspnea at rest Cardiac: + palpitations, No chest pain, No edema Physical Exam Vital Signs Last Vital Signs Documentation Date Time Temp Pulse Resp B/P (MAP) Pulse Ox O2 Delivery O2 Flow Rate FiO2 03/13/17 12:00 98 Oxymask 15.0 50 03/13/17 11:27 36.6 86 20 137/88 (104) Physical Exam Constitutional: General Apperance: heathly-appearing Level of Distress: acutely ill Lungs: Respiratory effort: dyspneic Auscultation: no wheezing, no rales/crackles, rhonchi Cardiovascular: Heart Auscultation: no murmurs, no rubs, no gallops, irregular rate rhythm Abdomen: Bowel Sounds: normal Inspection & Palpation: soft, non-distended, no tenderness, guarding & rebound Extremities: no edema Assessment and Plan Assessment and Plan IMPRESSION: 1. Confusion, fall, possible seizure, likely based on his underlying metabolic conditions including possible infection and hyponatremia. 2. 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 3. CHADS2-VASc score of 5 given his age, cardioembolic event and left ventricular dysfunction. 4. History of mild left ventricular dysfunction. 5. History of gastrointestinal bleed 09/22/2016, requiring transfusion. 6. Hemorrhoidal bleed 01/18/2017. 7. 10 seconds NSVT 03/13 at 6:50 am at >200 BPM D/w with Dr Dorantes, Replete K+ and Mg K> 4.0 Mg>2.0 Increase BB to 25 BID good carotid upstroke with non PVC beats If ectopy persists will need echo MRI with small vessel dz Continue antibiotics Ok with holding Xarelto for now Laboratory Results Last 24 Hours Test 03/12/17 20:54 03/13/17 05:41 Sodium Level 130 mmol/L 131 mmol/L Potassium Level 3.8 mmol/L 3.6 mmol/L Chloride Level 100 mmol/L 101 mmol/L Carbon Dioxide Level 20 mmol/L 22 mmol/L Anion Gap 10.0 mmol/L 8.0 mmol/L Blood Urea Nitrogen 14 mg/dl 15 mg/dl Creatinine 0.96 mg/dl 0.89 mg/dl Est Creatinine Clear Calc Drug Dose 58.8 ml/min 63.4 ml/min Estimated GFR () 82.6 89.7 Estimated GFR (Non- 71.3 77.4 BUN/Creatinine Ratio 14.2 17.1 Random Glucose 117 mg/dl 117 mg/dl Calcium Level 8.7 mg/dl 8.5 mg/dl Troponin I 0.148 ng/ml White Blood Count 9.88 K/uL Red Blood Count 3.99 M/uL Hemoglobin 12.3 g/dL Hematocrit 36.0 % Mean Corpuscular Volume 90.2 fL Mean Corpuscular Hemoglobin 30.8 pg Mean Corpuscular Hemoglobin Concent 34.2 g/dl Platelet Count 155 K/uL Mean Platelet Volume 8.8 fL Neutrophils (%) (Auto) 87.8 % Lymphocytes (%) (Auto) 4.6 % Monocytes (%) (Auto) 7.3 % Eosinophils (%) (Auto) 0.0 % Basophils (%) (Auto) 0.1 % Neutrophils # (Auto) 8.68 K/uL Lymphocytes # (Auto) 0.45 K/uL Monocytes # (Auto) 0.72 K/uL Eosinophils # (Auto) 0.00 K/uL Basophils # (Auto) 0.01 K/uL RDW Standard Deviation 48.6 fL RDW Coefficient of Variation 14.9 % Immature Granulocyte % (Auto) 0.2 % Immature Granulocyte # (Auto) 0.02 K/uL
[2017-03-13] MEDS: METOPROLOL SUCC 25MG EXT REL TAB PO SCH ×2 (14:15→20:15)
[2017-03-13] MEDS ORDERED: ENOXAPARIN 40 MG/0.4 ML SYR SQ ONE (15:00)
--- NOTE | 2017-03-13 15:23 | Progress Note ---
Subjective Date of Service: Mar 13, 2017. Subjective Pt evaluation today including: conversation w/ patient, conversation w/ family , physical exam, chart review, lab review, review of studies, review of inpatient medication list confused. coughing up thick sputum. called by nursing stat due to hypoxia and cyanosis - by the time i arrive he's on mask O2 good color and mid 90's due to nursing intervention w O2 and suction. no meaningful HPI or ROS obtainable from pt due to confusion - but denies cp/sob, denies significant cough. denies abdominal pain. no other acute complaints. ROS otherwise unobtainable except for as above is able to recognize daughter dtr and friend note that his baseline is good, sharp mentation - that this is a total change for him Problem List Medical Problems: (1) Altered mental status Status: Acute (2) Bleeding internal hemorrhoids Status: Acute (3) Constipation Status: Acute (4) Epistaxis Status: Acute (5) Hypoxia Status: Acute (6) Lactic acidosis Status: Acute (7) PNA (pneumonia) Status: Acute (8) Respiratory failure Status: Acute (9) Severe anemia Status: Acute (10) Sinusitis Status: Acute (11) Skin lesion of scalp Status: Acute (12) Vertigo Status: Acute (13) Weakness Status: Acute Review of Systems ROS otherwise unobtainable except for as above Objective Vital Signs Date Time Temp Pulse Resp B/P (MAP) Pulse Ox O2 Delivery O2 Flow Rate FiO2 03/13/17 12:00 98 Oxymask 15.0 50 03/13/17 11:27 36.6 86 20 137/88 (104) 95 Oxymask 15.0 03/13/17 10:56 97 24 98 Mask 15.0 03/13/17 07:45 98 Oxymask 15.0 50 03/13/17 06:32 36.4 92 18 175/98 (123) 98 Oxymask 15.0 03/13/17 04:24 173/88 (116) 03/13/17 04:00 Oxymask 15.0 03/13/17 03:47 36.4 79 18 203/91 (128) 91 Oxymask 15.0 03/13/17 00:00 Oxymask 15.0 03/12/17 23:10 92 160/92 (114) 90 Oxymask 15.0 03/12/17 22:58 36.3 92 18 174/92 (119) 90 Oxymask 15.0 03/12/17 20:00 Oxymask 15.0 03/12/17 19:18 36.3 86 18 157/50 (85) 91 Oxymask 15.0 03/12/17 16:08 36.6 67 18 148/91 (110) 96 Oxymask 15.0 03/12/17 16:00 Oxymask 15.0 Physical Exam General Appearance: + pertinent finding (somewhat restless in bed, although only minimal respiratory distress) Eyes: EOMI ENT: hearing grossly normal Neck: trachea midline Respiratory/Chest: no accessory muscle use, + pertinent finding (rales base and mid R, faintly coarse L, no wheeze good air entry) Cardiovascular: regular rate, rhythm (rate controlled) Extremities: normal range of motion Neurologic/Psychiatric: certified art therapist II-XII nml as tested, alert, + disoriented Skin: normal color, warm/dry Comments: EKG afib w frequent ectopy, no new ST-T changes when compared to previous Laboratory Results Last 24 Hours Test 03/12/17 20:54 03/13/17 05:41 Sodium Level 130 mmol/L 131 mmol/L Potassium Level 3.8 mmol/L 3.6 mmol/L Chloride Level 100 mmol/L 101 mmol/L Carbon Dioxide Level 20 mmol/L 22 mmol/L Anion Gap 10.0 mmol/L 8.0 mmol/L Blood Urea Nitrogen 14 mg/dl 15 mg/dl Creatinine 0.96 mg/dl 0.89 mg/dl Est Creatinine Clear Calc Drug Dose 58.8 ml/min 63.4 ml/min Estimated GFR () 82.6 89.7 Estimated GFR (Non- 71.3 77.4 BUN/Creatinine Ratio 14.2 17.1 Random Glucose 117 mg/dl 117 mg/dl Calcium Level 8.7 mg/dl 8.5 mg/dl Troponin I 0.148 ng/ml White Blood Count 9.88 K/uL Red Blood Count 3.99 M/uL Hemoglobin 12.3 g/dL Hematocrit 36.0 % Mean Corpuscular Volume 90.2 fL Mean Corpuscular Hemoglobin 30.8 pg Mean Corpuscular Hemoglobin Concent 34.2 g/dl Platelet Count 155 K/uL Mean Platelet Volume 8.8 fL Neutrophils (%) (Auto) 87.8 % Lymphocytes (%) (Auto) 4.6 % Monocytes (%) (Auto) 7.3 % Eosinophils (%) (Auto) 0.0 % Basophils (%) (Auto) 0.1 % Neutrophils # (Auto) 8.68 K/uL Lymphocytes # (Auto) 0.45 K/uL Monocytes # (Auto) 0.72 K/uL Eosinophils # (Auto) 0.00 K/uL Basophils # (Auto) 0.01 K/uL RDW Standard Deviation 48.6 fL RDW Coefficient of Variation 14.9 % Immature Granulocyte % (Auto) 0.2 % Immature Granulocyte # (Auto) 0.02 K/uL Assessment and Plan altered mental status -appearing to be septic/metabolic encephalopathy ---with hindsight of several days hospital stay, strongly suspect pneumonia as culprit, with hyponatremia contributing. follow for other factors as well, supportive care -on encephalopathy coverage per ID. MRI negative. ?LP vs empiric treatment - await further ID follow up, but current clinical picture favors encephalopathy over encephalitis pneumonia w acute hypoxic respiratory failure -dtr notes he gets respiratory illnesses every fall - raising suspicion of baseline allergic or pulmonary diseases; however, after discussion w speech, also certainly concern on ongoing chronic aspirations -for now continue zosyn -add nebs/pulmonary toilet -continue supportive care -- suspect worsening respiratory status today due to mucous plugging hyponatremia -likely relates to acute illness, continue to follow; did have mild hyponatremia (132) late december - so possibly some baseline of siadh. improving. possible seizure -no structural brain disease, no further events. likely due to combined physiologic and neurologic stressors from all of above afib -rate controlled. currently can't take xarelto - on hold. is on DVT proph lovenox dosing for now, can increase if it's clear no procedures (LP, etc) will be needed dysphagia -d/w speech - despite current delirium/encephalopathy, situation appears much more chronic to speech eval. await video fluoro, continue NPO DVT proph - lovenox mild troponin elevation -demand ischemia. follow clinically hypertension -home meds on hold while NPO. 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 outpt f/u Code status: do not resuscitate >30mins face to face
[2017-03-13] MEDS ORDERED: MAGNESIUM SULFATE 1GM / D5W 1 GM in PREMIXED IN D5W 100 ML IV ONE (15:30)
[2017-03-13] MEDS: POTASSIUM CHLR 10 MEQ / WTR 10 MEQ in PREMIXED WATER 100 ML IV SCH ×4 (15:43→18:15)
--- NOTE | 2017-03-13 16:52 | DIAGNOSTIC IMAGING REPORT ---
(CHEST) THORAX WITHOUT CLINICAL HISTORY: 86 years-old Male presenting with hypoxia, purulent sputum, ?evolving pneumonia. TECHNIQUE: Multidetector CT imaging of the chest was performed without the use of intravenous contrast. IV contrast: None. A dose lowering technique was used consistent with the principles of ALARA (as low as reasonably achievable). COMPARISON: 03/11/2017. CT DOSE (mGy.cm): The estimated cumulative dose is 668.86 mGy.cm. FINDINGS: [employer] topogram: Cardiomegaly On soft tissue windows, normal thyroid and thoracic inlet. Venous varicosities noted in the axillae. No convincing evidence of axillary or mediastinal lymphadenopathy allowing for noncontrast technique. Atherosclerosis of the aorta. Ectasia of the ascending aorta with the transverse diameter measuring 5.0 cm, previously 4.9 cm. Multichamber enlargement of the heart. Left-sided pacer with single lead to the right ventricular apex. Coronary artery and aortic valve calcification. No pericardial effusion. Trace right and small left pleural effusions. The left pleural effusion may be loculated. Small hiatal hernia suggested. On lung windows, dependent consolidation in the right lower lobe. More extensive dependent consolidation in the left lower lobe likely passive atelectasis. However, solid nodular and groundglass opacities in the dependent portions of the left upper lobe consistent with new infiltrate. Allowing for degradation in image quality secondary to respiratory motion, central airways patent. On bone windows, degenerative changes of the thoracic spine. Exaggerated kyphosis of the thoracic spine. Anterior wedging deformity of T6, unchanged from prior. IMPRESSION: 1. Interval development of new solid nodular groundglass opacities in the dependent portions of the left upper lobe, consistent with pneumonia. Aspiration not excluded. 2. Trace right and small left pleural effusions with associated passive atelectasis. 3. 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 4. Cardiomegaly with right ventricular pacer. Electronically signed by: Demetris Patton M.D. 03/13/2017 4:50 PM Dictated Date/Time: 03/13/2017 4:43 PM
[2017-03-13] MEDS: ATORVASTATIN 20 MG TAB PO SCH (20:14)
[2017-03-13] MEDS: FINASTERIDE 5 MG TAB PO SCH (20:14)
[2017-03-13] MEDS: CETIRIZINE HCL 10 MG TAB PO SCH (20:15)
--- NOTE | 2017-03-13 20:36 | Infectious Disease Progress Nt ---
Progress Note Date of Service Mar 13, 2017. Subjective Pt evaluation today including: conversation w/ patient, physical exam, chart review, lab review, review of studies, conversation w/ mortgage consultant, review of inpatient medication list patient remains confused. MRI unrevealing. No fever. Cultures remain negative to date. All Other Systems: Reviewed and Negative Medications Current Inpatient Medications Medications (Trade) Dose Ordered Sig/Tanesha Route Start Time Stop Time Status Last Admin Dose Admin Ioversol (Optiray 320) 100 ml UD PRN IV 03/11/17 15:45 03/15/17 15:44 Sodium Chloride 1,000 ml @ 70 mls/hr [id number] IV 03/11/17 16:45 04/10/17 16:44 03/13/17 08:57 100 MLS/HR Acetaminophen (Tylenol Tab) 650 mg Q4H PRN PO 03/11/17 16:45 04/10/17 16:44 Ondansetron HCl (Zofran Inj) 4 mg Q6H PRN IV 03/11/17 16:45 04/10/17 16:44 Vancomycin HCl 1250 mg/Sodium Chloride 275 ml @ 125 mls/hr Q16H IV 03/12/17 11:00 03/18/17 18:59 03/13/17 18:36 125 MLS/HR Atorvastatin Calcium (Lipitor Tab) 40 mg QPM PO 03/11/17 21:00 04/10/17 20:59 Cetirizine HCl (zyrTEC TAB) 10 mg QPM PO 03/11/17 21:00 04/10/17 20:59 Docusate Sodium (coLACE CAP) 100 mg BID PO 03/11/17 21:00 04/10/17 20:59 Finasteride (Proscar Tab) 5 mg QPM PO 03/11/17 21:00 04/10/17 20:59 Lisinopril (Zestril Tab) 2.5 mg QAM PO 03/12/17 09:00 04/11/17 08:59 Pantoprazole Sodium (Protonix Tab) 40 mg BID PO 03/11/17 21:00 04/10/17 20:59 Ferrous Sulfate (Feosol Tab) 325 mg BID PO 03/11/17 21:00 04/10/17 20:59 Levetiracetam 500 mg/Dextrose 105 ml @ 420 mls/hr Q12@0600,1800 IV 03/12/17 06:00 04/11/17 05:59 03/13/17 18:15 420 MLS/HR Vancomycin HCl (Consult) 1 ea UD PRN N/A 03/11/17 18:45 04/10/17 18:44 Piperacillin Sod/ Tazobactam Sod 3.375 gm/Dextrose 115 ml @ 28.75 mls/ hr Q8H IV 03/12/17 20:00 03/19/17 19:59 03/13/17 20:14 28.75 MLS/HR Acyclovir Sodium 800 mg/Dextrose 266 ml @ 265 mls/hr Q8H IV 03/12/17 19:00 03/22/17 17:44 03/13/17 18:35 265 MLS/HR Hydralazine HCl (HydrALAZINE INJ) 10 mg Q6 PRN IV. 03/13/17 09:15 04/12/17 09:14 03/13/17 09:48 10 MG Albuterol/ Ipratropium (Duoneb) 3 ml Q4R INH 03/13/17 12:00 04/12/17 11:59 03/13/17 20:00 3 ML Albuterol Sulfate (Ventolin 0.083% 2.5MG/3ML Neb) 2.5 mg Q2R PRN INH 03/13/17 10:45 04/12/17 10:44 Metoprolol Succinate (Toprol Xl Tab) 25 mg BID PO 03/13/17 14:15 04/10/17 20:59 Enoxaparin Sodium (Lovenox Inj) 40 mg QAM SQ 03/14/17 09:00 04/13/17 08:59 Objective Vital Signs Date Time Temp Pulse Resp B/P (MAP) Pulse Ox O2 Delivery O2 Flow Rate FiO2 03/13/17 20:00 87 20 98 Mask 15.0 03/13/17 19:08 36.6 93 20 178/92 (120) 99 Oxymask 10.0 174/108 (130) 03/13/17 16:00 96 Nasal Cannula 15.0 Oxymask 03/13/17 15:34 71 22 97 Mask 15.0 03/13/17 15:07 36.5 49 18 152/93 (112) 96 03/13/17 12:00 98 Oxymask 15.0 50 03/13/17 11:27 36.6 86 20 137/88 (104) 95 Oxymask 15.0 03/13/17 10:56 97 24 98 Mask 15.0 03/13/17 07:45 98 Oxymask 15.0 50 03/13/17 06:32 36.4 92 18 175/98 (123) 98 Oxymask 15.0 03/13/17 04:24 173/88 (116) 03/13/17 04:00 Oxymask 15.0 03/13/17 03:47 36.4 79 18 203/91 (128) 91 Oxymask 15.0 03/13/17 00:00 Oxymask 15.0 03/12/17 23:10 92 160/92 (114) 90 Oxymask 15.0 03/12/17 22:58 36.3 92 18 174/92 (119) 90 Oxymask 15.0 Physical Exam General Appearance: WD/WN, no apparent distress Eyes: normal inspection, sclerae normal ENT: normal ENT inspection, pharynx normal Neck: supple, no adenopathy, trachea midline Respiratory/Chest: chest non-tender, no respiratory distress, no accessory muscle use, + rhonchi Cardiovascular: no gallop, no murmur, + irregularly irregular Abdomen: normal bowel sounds, non tender, soft, no organomegaly Extremities: non-tender, no calf tenderness Neurologic/Psychiatric: alert, + disoriented Skin: normal color, warm/dry, no rash Lymphatic: no adenopathy Laboratory Results RUN DATE: 03/13/17 [facility] LAB PAGE 1 RUN TIME: 1100 Specimen Inquiry PATIENT: SHARMILA MERINO LOC: [facility] # : [id number] AGE/SX: 86/M ROOM: 85 REG : 03/11/[address]: Roosevelt Muñiz D.O : 1930 BED: 2 DIS : STATUS: ADM IN TLOC: SPEC #: [id number] EL: 03/11/17 STATUS: COMP REQ #: [id number] RECD: 03/11/[address]: Simón Calzada DO SOURCE: URINE CATH ENTR: 03/11/[address] [facility] [address]: Roosevelt Muñiz D.O. SPDESC: Wesley Gabriel M.D. ORDERED: CULTURE UR CATH COMMENTS: Has Specimen Been Obtained/Collected? Y Procedure Result Verified Site URINE CULTURE Final 03/13/17-1100 NO GROWTH - LESS THAN 1,000 COLONIES/ML Last 24 Hours Test 03/12/17 20:54 03/13/17 05:41 Sodium Level 130 mmol/L 131 mmol/L Potassium Level 3.8 mmol/L 3.6 mmol/L Chloride Level 100 mmol/L 101 mmol/L Carbon Dioxide Level 20 mmol/L 22 mmol/L Anion Gap 10.0 mmol/L 8.0 mmol/L Blood Urea Nitrogen 14 mg/dl 15 mg/dl Creatinine 0.96 mg/dl 0.89 mg/dl Est Creatinine Clear Calc Drug Dose 58.8 ml/min 63.4 ml/min Estimated GFR () 82.6 89.7 Estimated GFR (Non- 71.3 77.4 BUN/Creatinine Ratio 14.2 17.1 Random Glucose 117 mg/dl 117 mg/dl Calcium Level 8.7 mg/dl 8.5 mg/dl Troponin I 0.148 ng/ml White Blood Count 9.88 K/uL Red Blood Count 3.99 M/uL Hemoglobin 12.3 g/dL Hematocrit 36.0 % Mean Corpuscular Volume 90.2 fL Mean Corpuscular Hemoglobin 30.8 pg Mean Corpuscular Hemoglobin Concent 34.2 g/dl Platelet Count 155 K/uL Mean Platelet Volume 8.8 fL Neutrophils (%) (Auto) 87.8 % Lymphocytes (%) (Auto) 4.6 % Monocytes (%) (Auto) 7.3 % Eosinophils (%) (Auto) 0.0 % Basophils (%) (Auto) 0.1 % Neutrophils # (Auto) 8.68 K/uL Lymphocytes # (Auto) 0.45 K/uL Monocytes # (Auto) 0.72 K/uL Eosinophils # (Auto) 0.00 K/uL Basophils # (Auto) 0.01 K/uL RDW Standard Deviation 48.6 fL RDW Coefficient of Variation 14.9 % Immature Granulocyte % (Auto) 0.2 % Immature Granulocyte # (Auto) 0.02 K/uL Patient Name: SHARMILA MERINO Unit Number: [id number] Dictated: 03/13/171246 Transcribed: 03/13/171246 PBS Printed Date/Time: [~ rep prt dt]/[~ rep prt tm] [~ rep ct labl] - [~ rep ct ivnm] [facility] [address] Radiology Department [place] [id number] Dictated: 03/13/171246 Transcribed: 03/13/171246 PBS Printed Date/Time: [~ rep prt dt]/[~ rep prt tm] [~ rep ct labl] - [~ rep ct ivnm] BRAIN COMBO FOR SEIZURE CLINICAL HISTORY: 86 years-old Male presenting with ?seizure, altered mental status, hypoxia. TECHNIQUE: Multisequence, multiplanar MR imaging of the brain was performed before and after the administration of intravenous contrast. IV contrast: 8 mL of Gadavist. COMPARISON: CT head performed earlier the same day. FINDINGS: Proportional ventricular and sulcal prominence, likely age-related parenchymal volume loss. Periventricular and subcortical white matter T2/FLAIR hyperintensity, nonspecific but likely indicative of chronic small vessel ischemic change. No mass effect or midline shift. No restricted diffusion to suggest acute ischemia. No hemorrhage. No extra-axial fluid collection. T2 skull base flow voids preserved. No abnormal parenchymal enhancement. Bone marrow signal intensity within the calvarium within normal limits. IMPRESSION: 1. Chronic small vessel ischemic change. No acute intracranial abnormality. 2. No abnormal enhancement. Electronically signed by: Demetris Patton M.D. 03/13/2017 12:59 PM Dictated Date/Time: 03/13/2017 12:47 PM The status of this report is Signed. Draft = Not yet reviewed or approved by Radiologist. Signed = Reviewed and approved by Radiologist. <AttendingPhy>Roosevelt Muñiz D.O.</AttendingPhy> <FamilyPhy>Tania Kowalski</FamilyPhy> <PrimaryPhy>Wesley Gabriel M.D.</PrimaryPhy> <UnitNumber> [id number]</UnitNumber> <VisitNumber>[id number]</VisitNumber> <PatientName> SHARMILA MERINO</PatientName> <DateOfBirth>1930</DateOfBirth> <Location> C[facility]</Location> <ServiceDate>03/11/17</ServiceDate> <MNE>ESINDI</MNE> < OrderingPhy>Roosevelt Muñiz D.O.</OrderingPhy> <OrderingPhyMNE>f rep ord dr larson</OrderingPhyMNE> <DictatingPhyMNE>f rep dict dr larson</DictatingPhyMNE> < CCListMNE>f rep ct mne</CCListMNE> <AdmittingPhyMNE>f pt admit dr larson</ AdmittingPhyMNE> <AttendingPhyMNE>f pt attend dr larson</AttendingPhyMNE> <ConsultingPhyMNE>f pt consult dr larson</ConsultingPhyMNE> <FamilyPhyMNE>f pt fam dr larson</FamilyPhyMNE> <OtherPhyMNE>f pt other dr larson</OtherPhyMNE> < PrimaryPhyMNE>f pt prim care dr larson</PrimaryPhyMNE> <ReferringPhyMNE>f pt referring dr larson</ReferringPhyMNE> Assessment and Plan acute encephalopathy with seizures following what appeared to be respiratory tract infection. I am concerned about the possibility of zoster encephalitis, And patient to be continued on IV acyclovir for now.. Would continue antibiotics for possible aspiration pneumonia pending final culture results and follow up chest x-ray. Will follow.
[2017-03-14] VITALS (13 sets, daily range): BP systolic 108–185; BP diastolic 71–96; PULSE 73–99; TEMP 36.2–37.2; O2SAT 90–99
[2017-03-14] MEDS: HydrALAZINE HCL 20 MG/ML VIAL IV. PRN (02:56)
[2017-03-14] MEDS: ACYCLOVIR SOD INJ 800 MG in DEXTROSE 5% 250ML 250 ML IV SCH ×3 (02:57→18:33)
[2017-03-14] MEDS: ALBUT/IPRATROP 3MG/0.5MG NEB 3 ML VIAL INH SCH ×6 (03:04→23:21)
[2017-03-14] MEDS: PIPERACILL/TAZOBAC IV 3.375 GM in DEXTROSE 5% 100ML IV SCH ×3 (04:07→20:13)
[2017-03-14] MEDS ORDERED: NURSING VERBAL MED ORDER ONE (05:00)
[2017-03-14] MEDS ORDERED: METOPROLOL TARTRATE 1 MG/ML VIAL ONE (05:01)
[2017-03-14] MEDS ORDERED: METOPROLOL TARTRATE 1 MG/ML VIAL IV STA (05:09)
[2017-03-14 06:01] LABS: BASO % 0.1 %; BASO ABS # 0.01 K/uL (0-0.2); COMPLETE YES; EOS % 0.1 %; HEMATOCRIT 36.5 % (42-52); IG% 0.2 %; LYMPH % 3.9 %; MEAN CELL VOLUME 89.9 fL (80-100); MEAN CORPUSCULAR HEMOGLOBIN 31.3 pg (25-34); MEAN CORPUSCULAR HGB CONC 34.8 g/dl (32-36); MEAN PLATELET VOLUME 9.2 fL (7.4-10.4); MONO % 6.4 %; NEUT % 89.3 %; PLATELET COUNT 172 K/uL (130-400); RED BLOOD COUNT 4.06 M/uL (4.7-6.1); WHITE BLOOD COUNT 10.15 K/uL (4.8-10.8)
[2017-03-14] MEDS: LEVETIRACETAM IV 500 MG in DEXTROSE 5% 100ML 100 ML IV SCH ×2 (06:16→17:46)
[2017-03-14 06:31] LABS: BUN/CREATININE RATIO 16.1 (10-20); CALCIUM 8.3 mg/dl (8.5-10.1); CREATININE 0.79 mg/dl (0.60-1.40); MAGNESIUM 1.9 mg/dl (1.8-2.4); POTASSIUM 3.6 mmol/L (3.5-5.1)
[2017-03-14] MEDS: PANTOprazole SOD 40 MG TAB PO SCH ×2 (07:45→20:15)
[2017-03-14] MEDS: DOCUSATE SODIUM 100 MG CAP PO SCH ×2 (07:45→20:14)
[2017-03-14] MEDS: FERROUS SULFATE 325 MG TAB PO SCH ×2 (07:45→20:14)
[2017-03-14] MEDS: METOPROLOL SUCC 25MG EXT REL TAB PO SCH (07:45)
[2017-03-14] MEDS: LISINOPRIL 2.5 MG TAB PO SCH (07:45)
[2017-03-14] MEDS: ENOXAPARIN 40 MG/0.4 ML SYR SQ SCH (08:32)
[2017-03-14] MEDS ORDERED: VANCOMYCIN TROUGH SCH (10:30)
[2017-03-14] MEDS: VANCOMYCIN INJ 1,250 MG in SODIUM CHLORIDE 0.9% 250ML 250 ML IV SCH (10:50)
[2017-03-14] MEDS: SODIUM CHLORIDE 0.9% 1000ML 1,000 ML IV SCH (12:33)
[2017-03-14] MEDS: METOPROLOL TARTRATE 1 MG/ML VIAL IV. SCH ×2 (12:34→17:50)
[2017-03-14] MEDS ORDERED: MAGNESIUM SULFATE 1GM / D5W 1 GM in PREMIXED IN D5W 100 ML IV STA (14:39)
--- NOTE | 2017-03-14 14:44 | Progress Note ---
Subjective Date of Service: Mar 14, 2017. Subjective Pt evaluation today including: conversation w/ patient, conversation w/ family , physical exam, chart review, lab review, review of inpatient medication list more alert today - dtr notes he's appearing about "20% more like himself" -- is able to tell me that his breathing feels lousy, that it's wet and rumbly, then he drifts off to sleep again - dtr notes he's been more coherent and a little more lucid, but also way more tired. no other HPI or ROS obtainable from pt Problem List Medical Problems: (1) Altered mental status Status: Acute (2) Bleeding internal hemorrhoids Status: Acute (3) Constipation Status: Acute (4) Epistaxis Status: Acute (5) Hypoxia Status: Acute (6) Lactic acidosis Status: Acute (7) PNA (pneumonia) Status: Acute (8) Respiratory failure Status: Acute (9) Severe anemia Status: Acute (10) Sinusitis Status: Acute (11) Skin lesion of scalp Status: Acute (12) Vertigo Status: Acute (13) Weakness Status: Acute Review of Systems all other ROS otherwise negative except for as above Objective Vital Signs Date Time Temp Pulse Resp B/P (MAP) Pulse Ox O2 Delivery O2 Flow Rate FiO2 03/14/17 12:34 89 134/78 03/14/17 12:30 Nasal Cannula 5.0 03/14/17 11:25 93 Nasal Cannula 6.0 03/14/17 11:07 37.2 76 16 143/87 (105) 90 Nasal Cannula 6.0 03/14/17 07:45 Nasal Cannula 6.0 03/14/17 07:41 36.4 95 28 108/71 (83) 99 Nasal Cannula 6.0 03/14/17 06:59 84 18 95 Mask 6.0 03/14/17 05:41 93 03/14/17 05:07 120 166/90 03/14/17 04:14 74 133/71 (91) 03/14/17 04:00 Nasal Cannula 6.0 03/14/17 03:04 94 18 98 Mask 6.0 03/14/17 03:00 36.8 99 18 185/81 (115) 97 Oxymask 6.0 03/14/17 00:00 Oxymask 6.0 03/13/17 23:20 77 18 98 Mask 10.0 03/13/17 22:48 36.4 92 20 168/92 (117) 96 Mask 10.0 170/90 (116) 03/13/17 20:00 100 Nasal Cannula 10.0 Oxymask 03/13/17 20:00 87 20 98 Mask 15.0 03/13/17 19:08 36.6 93 20 178/92 (120) 99 Oxymask 10.0 174/108 (130) 03/13/17 16:00 96 Nasal Cannula 15.0 Oxymask 03/13/17 15:34 71 22 97 Mask 15.0 03/13/17 15:07 36.5 49 18 152/93 (112) 96 Physical Exam General Appearance: + pertinent finding (fatigued appearing but no respiratory or pain distress) Eyes: EOMI ENT: hearing grossly normal Neck: trachea midline Respiratory/Chest: no respiratory distress, no accessory muscle use, + pertinent finding (R sided diminished BS, R > L scattered rhonchi no wheeze good effort) Extremities: normal range of motion 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, alert, + pertinent finding ( more oriented, but still fairly confused) Skin: normal color, warm/dry Laboratory Results Last 24 Hours Test 03/14/17 05:35 03/14/17 10:26 White Blood Count 10.15 K/uL Red Blood Count 4.06 M/uL Hemoglobin 12.7 g/dL Hematocrit 36.5 % Mean Corpuscular Volume 89.9 fL Mean Corpuscular Hemoglobin 31.3 pg Mean Corpuscular Hemoglobin Concent 34.8 g/dl Platelet Count 172 K/uL Mean Platelet Volume 9.2 fL Neutrophils (%) (Auto) 89.3 % Lymphocytes (%) (Auto) 3.9 % Monocytes (%) (Auto) 6.4 % Eosinophils (%) (Auto) 0.1 % Basophils (%) (Auto) 0.1 % Neutrophils # (Auto) 9.06 K/uL Lymphocytes # (Auto) 0.40 K/uL Monocytes # (Auto) 0.65 K/uL Eosinophils # (Auto) 0.01 K/uL Basophils # (Auto) 0.01 K/uL RDW Standard Deviation 49.1 fL RDW Coefficient of Variation 15.0 % Immature Granulocyte % (Auto) 0.2 % Immature Granulocyte # (Auto) 0.02 K/uL Sodium Level 132 mmol/L Potassium Level 3.6 mmol/L Chloride Level 103 mmol/L Carbon Dioxide Level 20 mmol/L Anion Gap 9.0 mmol/L Blood Urea Nitrogen 13 mg/dl Creatinine 0.79 mg/dl Est Creatinine Clear Calc Drug Dose 71.5 ml/min Estimated GFR () 94.2 Estimated GFR (Non- 81.3 BUN/Creatinine Ratio 16.1 Random Glucose 142 mg/dl Calcium Level 8.3 mg/dl Magnesium Level 1.9 mg/dl Vancomycin Level Trough 10.1 mcg/ml Assessment and Plan altered mental status -appearing to be septic/metabolic encephalopathy ---with hindsight of several days hospital stay, strongly suspect pneumonia as culprit, with hyponatremia contributing. follow for other factors as well, supportive care -on encephalopathy coverage per ID. MRI negative. current clinical picture favors encephalopathy over encephalitis but appreciate ongoing ID input pneumonia w acute hypoxic respiratory failure -dtr notes he gets respiratory illnesses every fall - raising suspicion of baseline allergic or pulmonary diseases; however, after discussion w speech, also certainly concern on ongoing chronic aspirations -for now continue zosyn -continue nebs/pulmonary toilet -continue supportive care -- seems somewhat improved from yesterday hyponatremia -likely relates to acute illness, continue to follow; did have mild hyponatremia (132) late december - so possibly some baseline of siadh. improving. -with hindsight of likely chronically aspirating, lung-induced mild SiADH seems more likely possible seizure -no structural brain disease, no further events. likely due to combined physiologic and neurologic stressors from all of above afib -rate controlled. currently can't take xarelto - on hold. is on DVT proph lovenox dosing for now, can increase if it's clear no procedures (LP, etc) will be needed dysphagia -d/w speech - despite current delirium/encephalopathy, situation appears much more chronic to speech evaluation. await video fluoro once able, continue NPO DVT proph - lovenox (resume full anticoag for afib once clearly safe to do so) mild troponin elevation -demand ischemia. follow clinically hypertension -home meds on hold while NPO. 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 outpt f/u Code status: do not resuscitate
--- NOTE | 2017-03-14 15:09 | Infectious Disease Progress Nt ---
Progress Note Date of Service Mar 14, 2017. Subjective Pt evaluation today including: conversation w/ patient, physical exam, chart review, lab review, review of studies, conversation w/ test consultant, review of inpatient medication list Slightly more alert today, remains confused. No fever. No other new obvious complaints. All Other Systems: Reviewed and Negative Medications Current Inpatient Medications Medications (Trade) Dose Ordered Sig/Tanesha Route Start Time Stop Time Status Last Admin Dose Admin Ioversol (Optiray 320) 100 ml UD PRN IV 03/11/17 15:45 03/15/17 15:44 Sodium Chloride 1,000 ml @ 70 mls/hr [id number] IV 03/11/17 16:45 04/10/17 16:44 03/14/17 12:33 70 MLS/HR Acetaminophen (Tylenol Tab) 650 mg Q4H PRN PO 03/11/17 16:45 04/10/17 16:44 Ondansetron HCl (Zofran Inj) 4 mg Q6H PRN IV 03/11/17 16:45 04/10/17 16:44 Atorvastatin Calcium (Lipitor Tab) 40 mg QPM PO 03/11/17 21:00 04/10/17 20:59 Cetirizine HCl (zyrTEC TAB) 10 mg QPM PO 03/11/17 21:00 04/10/17 20:59 Docusate Sodium (coLACE CAP) 100 mg BID PO 03/11/17 21:00 04/10/17 20:59 Finasteride (Proscar Tab) 5 mg QPM PO 03/11/17 21:00 04/10/17 20:59 Lisinopril (Zestril Tab) 2.5 mg QAM PO 03/12/17 09:00 04/11/17 08:59 Pantoprazole Sodium (Protonix Tab) 40 mg BID PO 03/11/17 21:00 04/10/17 20:59 Ferrous Sulfate (Feosol Tab) 325 mg BID PO 03/11/17 21:00 04/10/17 20:59 Levetiracetam 500 mg/Dextrose 105 ml @ 420 mls/hr Q12@0600,1800 IV 03/12/17 06:00 04/11/17 05:59 03/14/17 06:16 420 MLS/HR Vancomycin HCl (Consult) 1 ea UD PRN N/A 03/11/17 18:45 04/10/17 18:44 Piperacillin Sod/ Tazobactam Sod 3.375 gm/Dextrose 115 ml @ 28.75 mls/ hr Q8H IV 03/12/17 20:00 03/19/17 19:59 03/14/17 12:33 28.75 MLS/HR Acyclovir Sodium 800 mg/Dextrose 266 ml @ 265 mls/hr Q8H IV 03/12/17 19:00 03/22/17 17:44 03/14/17 10:50 265 MLS/HR Hydralazine HCl (HydrALAZINE INJ) 10 mg Q6 PRN IV. 03/13/17 09:15 04/12/17 09:14 03/14/17 02:56 10 MG Albuterol/ Ipratropium (Duoneb) 3 ml Q4R INH 03/13/17 12:00 04/12/17 11:59 03/14/17 06:58 3 ML Albuterol Sulfate (Ventolin 0.083% 2.5MG/3ML Neb) 2.5 mg Q2R PRN INH 03/13/17 10:45 04/12/17 10:44 Metoprolol Succinate (Toprol Xl Tab) 25 mg BID PO 03/13/17 14:15 04/10/17 20:59 Future Hold Enoxaparin Sodium (Lovenox Inj) 40 mg QAM SQ 03/14/17 09:00 04/13/17 08:59 03/14/17 08:32 40 MG Metoprolol Tartrate (Lopressor Iv) 2.5 mg Q6 IV. 03/14/17 12:00 04/13/17 11:59 03/14/17 12:34 2.5 MG Potassium Chloride 10 meq/ Prmx 100 ml @ 100 mls/hr Q1H IV 03/14/17 16:00 03/14/17 19:59 Magnesium Sulfate 1 gm/Prmx 100 ml @ 100 mls/hr NOW STAT IV 03/14/17 14:39 03/14/17 15:38 Vancomycin HCl 1250 mg/Sodium Chloride 275 ml @ 125 mls/hr Q14H IV 03/15/17 00:00 03/18/17 18:59 Objective Vital Signs Date Time Temp Pulse Resp B/P (MAP) Pulse Ox O2 Delivery O2 Flow Rate FiO2 03/14/17 12:34 89 134/78 03/14/17 12:30 Nasal Cannula 5.0 03/14/17 11:25 93 Nasal Cannula 6.0 03/14/17 11:07 37.2 76 16 143/87 (105) 90 Nasal Cannula 6.0 03/14/17 07:45 Nasal Cannula 6.0 03/14/17 07:41 36.4 95 28 108/71 (83) 99 Nasal Cannula 6.0 03/14/17 06:59 84 18 95 Mask 6.0 03/14/17 05:41 93 03/14/17 05:07 120 166/90 03/14/17 04:14 74 133/71 (91) 03/14/17 04:00 Nasal Cannula 6.0 03/14/17 03:04 94 18 98 Mask 6.0 03/14/17 03:00 36.8 99 18 185/81 (115) 97 Oxymask 6.0 03/14/17 00:00 Oxymask 6.0 03/13/17 23:20 77 18 98 Mask 10.0 03/13/17 22:48 36.4 92 20 168/92 (117) 96 Mask 10.0 170/90 (116) 03/13/17 20:00 100 Nasal Cannula 10.0 Oxymask 03/13/17 20:00 87 20 98 Mask 15.0 03/13/17 19:08 36.6 93 20 178/92 (120) 99 Oxymask 10.0 174/108 (130) 03/13/17 16:00 96 Nasal Cannula 15.0 Oxymask 03/13/17 15:34 71 22 97 Mask 15.0 Physical Exam General Appearance: WD/WN, no apparent distress Eyes: normal inspection, sclerae normal ENT: normal ENT inspection, pharynx normal Neck: supple, no adenopathy, trachea midline Respiratory/Chest: lungs clear, normal breath sounds, no respiratory distress Cardiovascular: regular rate, rhythm, no gallop, no murmur Abdomen: normal bowel sounds, non tender, soft, no organomegaly Extremities: non-tender, no calf tenderness Neurologic/Psychiatric: alert, + disoriented Skin: normal color, no rash Lymphatic: no adenopathy Laboratory Results Last 24 Hours Test 03/14/17 05:35 03/14/17 10:26 White Blood Count 10.15 K/uL Red Blood Count 4.06 M/uL Hemoglobin 12.7 g/dL Hematocrit 36.5 % Mean Corpuscular Volume 89.9 fL Mean Corpuscular Hemoglobin 31.3 pg Mean Corpuscular Hemoglobin Concent 34.8 g/dl Platelet Count 172 K/uL Mean Platelet Volume 9.2 fL Neutrophils (%) (Auto) 89.3 % Lymphocytes (%) (Auto) 3.9 % Monocytes (%) (Auto) 6.4 % Eosinophils (%) (Auto) 0.1 % Basophils (%) (Auto) 0.1 % Neutrophils # (Auto) 9.06 K/uL Lymphocytes # (Auto) 0.40 K/uL Monocytes # (Auto) 0.65 K/uL Eosinophils # (Auto) 0.01 K/uL Basophils # (Auto) 0.01 K/uL RDW Standard Deviation 49.1 fL RDW Coefficient of Variation 15.0 % Immature Granulocyte % (Auto) 0.2 % Immature Granulocyte # (Auto) 0.02 K/uL Sodium Level 132 mmol/L Potassium Level 3.6 mmol/L Chloride Level 103 mmol/L Carbon Dioxide Level 20 mmol/L Anion Gap 9.0 mmol/L Blood Urea Nitrogen 13 mg/dl Creatinine 0.79 mg/dl Est Creatinine Clear Calc Drug Dose 71.5 ml/min Estimated GFR () 94.2 Estimated GFR (Non- 81.3 BUN/Creatinine Ratio 16.1 Random Glucose 142 mg/dl Calcium Level 8.3 mg/dl Magnesium Level 1.9 mg/dl Vancomycin Level Trough 10.1 mcg/ml Assessment and Plan acute encephalopathy with seizures following what appeared to be respiratory tract infection. I am concerned about the possibility of zoster encephalitis though noninfectious encephalopathy appears more likely., patient to be continued on IV acyclovir for now.. Would continue antibiotics for possible aspiration pneumonia pending final culture results and follow up chest x-ray. Will follow.
--- NOTE | 2017-03-14 15:12 | Pharmacy Progress Note ---
Pharmacy Abx Dose Progress Nt Date of Service Mar 14, 2017. Pharmacy Dosing Scope The patient is currently receiving the following antimicrobial agents per Pharmacy consult: * Vancomycin 1250 mg IV every 16 hours * Zosyn 3.375 grams IV every 8 hours for extended infusion Objective Height (Feet): 5 Height (Inches): 11.00 Weight (Kilograms): 82.600 Vital Signs (Past 12Hrs) Vital Signs Past 12 Hours Date Time Temp Pulse Resp B/P (MAP) Pulse Ox O2 Delivery O2 Flow Rate FiO2 03/14/17 12:34 89 134/78 03/14/17 12:30 Nasal Cannula 5.0 03/14/17 11:25 93 Nasal Cannula 6.0 03/14/17 11:07 37.2 76 16 143/87 (105) 90 Nasal Cannula 6.0 03/14/17 07:45 Nasal Cannula 6.0 03/14/17 07:41 36.4 95 28 108/71 (83) 99 Nasal Cannula 6.0 03/14/17 06:59 84 18 95 Mask 6.0 03/14/17 05:41 93 03/14/17 05:07 120 166/90 03/14/17 04:14 74 133/71 (91) 03/14/17 04:00 Nasal Cannula 6.0 03/14/17 03:04 94 18 98 Mask 6.0 Lab Results (24Hrs) Laboratory Tests (24 Hours) Test 03/14/17 05:35 White Blood Count 10.15 K/uL (4.8-10.8) Red Blood Count 4.06 M/uL (4.7-6.1) L Hemoglobin 12.7 g/dL (14.0-18.0) L Hematocrit 36.5 % (42-52) L Mean Corpuscular Volume 89.9 fL (80-100) Mean Corpuscular Hemoglobin 31.3 pg (25-34) Mean Corpuscular Hemoglobin Concent 34.8 g/dl (32-36) Platelet Count 172 K/uL (130-400) Mean Platelet Volume 9.2 fL (7.4-10.4) Neutrophils (%) (Auto) 89.3 % Lymphocytes (%) (Auto) 3.9 % Monocytes (%) (Auto) 6.4 % Eosinophils (%) (Auto) 0.1 % Basophils (%) (Auto) 0.1 % Neutrophils # (Auto) 9.06 K/uL (1.4-6.5) H Lymphocytes # (Auto) 0.40 K/uL (1.2-3.4) L Monocytes # (Auto) 0.65 K/uL (0.11-0.59) H Eosinophils # (Auto) 0.01 K/uL (0-0.5) Basophils # (Auto) 0.01 K/uL (0-0.2) Item Value Date Time Vancomycin Level Trough 10.1 mcg/ml 03/14/17 1026 Micro Results Date/Time Source Procedure Growth Status 03/11/17 15:46 Blood Blood Culture - Preliminary NO GROWTH TO DATE. Resulted 03/11/17 15:29 Blood Blood Culture - Preliminary NO GROWTH TO DATE. Resulted 03/11/17 19:00 Nasal MRSA DNA Surveillance Screen - Final Specimen Negative for MRSA by DNA Probe Complete 03/11/17 16:00 Urine,Catheterized Urine Culture - Final NO GROWTH - LESS THAN 1,000 COLONIES/ML Complete Risk Factors for Resistance * Resident in a [place] health care facility or extended-care facility Assessment & Plan Assessment 86 year old male receiving IV Vancomycin and IV Zosyn for treatment of possible pneumonia after presentation with mental status changes. Patient was receiving oral levofloxacin prior to admission Day # 4 of antimicrobial therapy. Patient only making slow incremental improvement. Renal function appears stable, serum creatinine has dropped since admission. Trough was subtherapeutic today, however, may represent a pre- steady-state assessment with slight accumulation anticipated. Will shorten the dosing interval slightly today to bring the trough up toward the therapeutic range required in treating pulmonary processes. Plan Vancomycin IV * Trough level of 10.1 mcg/mL is subtherapeutic. * Change to 1250 mg IV every 14 hours * Goal trough level for pneumonia: 15 to 20 mcg/mL * Trough level ordered for: 03/17/17 prior to the 0800 hours dose Piperacillin/tazobactam * Continue 3.375 g IV extended infusion every 8 hours for CrCl greater than 20 mL/min Pharmacy will continue to follow and will adjust dose/frequency as necessary. Thank you.
[2017-03-14] MEDS: POTASSIUM CHLR 10 MEQ / WTR 10 MEQ in PREMIXED WATER 100 ML IV SCH ×4 (15:24→18:32)
[2017-03-14] MEDS: ATORVASTATIN 20 MG TAB PO SCH (20:14)
[2017-03-14] MEDS: FINASTERIDE 5 MG TAB PO SCH (20:14)
[2017-03-14] MEDS: CETIRIZINE HCL 10 MG TAB PO SCH (20:15)
[2017-03-15] VITALS (15 sets, daily range): BP systolic 139–188; BP diastolic 72–108; PULSE 65–100; TEMP 36.2–36.9; O2SAT 95–99
[2017-03-15] MEDS: VANCOMYCIN INJ 1,250 MG in SODIUM CHLORIDE 0.9% 250ML 250 ML IV SCH ×2 (00:30→13:19)
[2017-03-15] MEDS: METOPROLOL TARTRATE 1 MG/ML VIAL IV. SCH ×4 (00:33→18:27)
[2017-03-15] MEDS: ACYCLOVIR SOD INJ 800 MG in DEXTROSE 5% 250ML 250 ML IV SCH ×3 (02:54→19:03)
[2017-03-15] MEDS: SODIUM CHLORIDE 0.9% 1000ML 1,000 ML IV SCH ×2 (03:01→18:27)
[2017-03-15] MEDS: ALBUT/IPRATROP 3MG/0.5MG NEB 3 ML VIAL INH SCH ×6 (03:23→23:24)
[2017-03-15] MEDS: PIPERACILL/TAZOBAC IV 3.375 GM in DEXTROSE 5% 100ML IV SCH ×3 (04:23→20:29)
[2017-03-15] MEDS: LEVETIRACETAM IV 500 MG in DEXTROSE 5% 100ML 100 ML IV SCH ×2 (05:58→18:27)
[2017-03-15] MEDS: LISINOPRIL 2.5 MG TAB PO SCH (07:27)
[2017-03-15] MEDS: DOCUSATE SODIUM 100 MG CAP PO SCH ×2 (07:27→21:00)
[2017-03-15] MEDS: PANTOprazole SOD 40 MG TAB PO SCH ×2 (07:27→21:00)
[2017-03-15] MEDS: FERROUS SULFATE 325 MG TAB PO SCH ×2 (07:27→21:00)
[2017-03-15 07:38] LABS: COMPLETE YES; EOS % 0.2 %; HEMATOCRIT 32.6 % (42-52); IG% 0.2 %; LYMPH % 6.7 %; LYMPH ABS # 0.36 K/uL (1.2-3.4); MEAN CELL VOLUME 90.3 fL (80-100); MEAN CORPUSCULAR HGB CONC 34.4 g/dl (32-36); MEAN PLATELET VOLUME 8.9 fL (7.4-10.4); MONO % 8.4 %; NEUT % 84.5 %; PLATELET COUNT 132 K/uL (130-400); RED BLOOD COUNT 3.61 M/uL (4.7-6.1); WHITE BLOOD COUNT 5.34 K/uL (4.8-10.8)
[2017-03-15] MEDS: ENOXAPARIN 40 MG/0.4 ML SYR SQ SCH (07:40)
[2017-03-15 08:08] LABS: BUN/CREATININE RATIO 14.3 (10-20); CALCIUM 8.5 mg/dl (8.5-10.1); CREATININE 0.65 mg/dl (0.60-1.40); POTASSIUM 3.6 mmol/L (3.5-5.1)
--- NOTE | 2017-03-15 13:43 | DIAGNOSTIC IMAGING REPORT ---
ADDENDUM A corrected report is issued below: VIDEO SWALLOW CLINICAL HISTORY: 86 years-old Male presenting with dysphagia, aspiration pneumonia. TECHNIQUE: Video fluoroscopic evaluation of swallowing was performed in the AP and lateral projections in conjunction with speech pathology. The patient was administered various textures, LIMITED TO THIN LIQUID AND NECTAR THICK LIQUID. COMPARISON: None. FINDINGS: Penetration with thin liquids observed. Aspiration with nectar thick liquids. Administration of thin and nectar thick liquids resulted in intraesophageal reflux into the hypopharynx. This resulted in intermittent aspiration and expectoration of the food boluses. A posteriorly and inferiorly directed outpouching is suggested at the level of C5-6 on limited evaluation of the cervical esophagus. This may better evaluated with dedicated esophagram. Fluoroscopy dosage (mGy): Not available. Fluoroscopy time: 1.1 minutes. Number of fluoroscopic spot images: 0. IMPRESSION: 1. Penetration and aspiration with liquids as above. Intraesophageal reflux with resultant aspiration. 2. Questionable Zenker's diverticulum. This would be better evaluated with dedicated esophagram. 3. Please see the speech pathologist report for detailed findings and recommendations. Electronically signed by: Demetris Patton M.D. 03/22/2017 1:03 PM Dictated Date/Time: 03/22/2017 12:55 PM ORIGINAL REPORT VIDEO SWALLOW CLINICAL HISTORY: 86 years-old Male presenting with dysphagia, aspiration pneumonia. TECHNIQUE: Video fluoroscopic evaluation of swallowing was performed in the AP and lateral projections in conjunction with speech pathology. The patient was administered various textures, including nectar-thick and thin liquid barium, a barium coated wafer, and barium pudding. COMPARISON: 12/01/2015. FINDINGS: Normal movement of food boluses through the oral cavity. Penetration observed with thin liquids. Aspiration observed with nectar thick liquids. Intraesophageal reflux noted into the hypopharynx, intermittently resulting in aspiration. Fluoroscopy dosage (mGy): Not available. Fluoroscopy time: 1.1 minutes. Number of fluoroscopic spot images: 0. IMPRESSION: 1. Penetration and aspiration with liquids. Intraesophageal reflux with resultant aspiration. 2. Please see the speech pathologist report for detailed findings and recommendations. Electronically signed by: Demetris Patton M.D. 03/15/2017 1:42 PM Dictated Date/Time: 03/15/2017 1:39 PM
--- NOTE | 2017-03-15 17:01 | Progress Note ---
Subjective Date of Service: Mar 15, 2017. Subjective Pt evaluation today including: conversation w/ patient, conversation w/ family , physical exam, chart review, lab review, review of inpatient medication list more alert conversive, knows he's in [facility], loosely aware of circumstances. keeps perseverating on needing his esophagus stretched to prevent aspiration. friend notes that he had been working with speech years ago but hadn't needed to for a while breathing feeling better new dtr present ---> updated on entirety of case and answered all questions to her satisfaction revisited after video fluoro and updated again Problem List Medical Problems: (1) Altered mental status Status: Acute (2) Bleeding internal hemorrhoids Status: Acute (3) Constipation Status: Acute (4) Epistaxis Status: Acute (5) Hypoxia Status: Acute (6) Lactic acidosis Status: Acute (7) PNA (pneumonia) Status: Acute (8) Respiratory failure Status: Acute (9) Severe anemia Status: Acute (10) Sinusitis Status: Acute (11) Skin lesion of scalp Status: Acute (12) Vertigo Status: Acute (13) Weakness Status: Acute Review of Systems all other ROS otherwise negative except for as above Objective Vital Signs Date Time Temp Pulse Resp B/P (MAP) Pulse Ox O2 Delivery O2 Flow Rate FiO2 03/15/17 15:51 36.9 75 16 153/84 (107) 96 Nasal Cannula 5.0 03/15/17 15:20 72 20 96 Nasal Cannula 4.0 03/15/17 12:30 Nasal Cannula 5.0 03/15/17 12:29 79 111/60 03/15/17 11:16 68 20 96 Nasal Cannula 4.0 03/15/17 11:04 36.4 69 20 158/81 (106) 99 03/15/17 07:45 Nasal Cannula 4.0 03/15/17 07:37 73 20 95 Nasal Cannula 4.0 03/15/17 07:34 36.5 65 20 139/85 (103) 96 03/15/17 05:59 79 144/86 03/15/17 04:11 36.8 79 20 145/87 (106) 95 2.0 03/15/17 04:00 Nasal Cannula 5.0 Humidified Oxygen 03/15/17 03:23 86 20 95 Nasal Cannula 4.0 03/15/17 00:33 78 179/116 03/15/17 00:09 36.6 74 20 162/72 (102) 96 Nasal Cannula 4.0 03/15/17 00:00 Nasal Cannula 5.0 Humidified Oxygen 03/14/17 23:21 82 20 94 Nasal Cannula 4.0 03/14/17 21:01 80 20 94 Nasal Cannula 6.0 03/14/17 20:00 Nasal Cannula 5.0 Humidified Oxygen 03/14/17 19:22 36.7 77 18 172/86 (114) 95 4.0 03/14/17 17:50 73 162/96 03/14/17 17:48 73 162/96 (118) Physical Exam General Appearance: no apparent distress Eyes: EOMI ENT: hearing grossly normal Neck: trachea midline Respiratory/Chest: no respiratory distress, no accessory muscle use, + decreased breath sounds (base R, less rhonchi) Cardiovascular: regular rate, rhythm Abdomen: soft Extremities: normal range of motion Neurologic/Psychiatric: lion trainer II-XII nml as tested, alert (more oriented, more coherent) Skin: normal color, warm/dry Comments: ost/msk - R>L Tspine paraspinals and intercostals decreased ROM - balanced ligamentous tension - improved Laboratory Results Last 24 Hours Test 03/15/17 07:13 White Blood Count 5.34 K/uL Red Blood Count 3.61 M/uL Hemoglobin 11.2 g/dL Hematocrit 32.6 % Mean Corpuscular Volume 90.3 fL Mean Corpuscular Hemoglobin 31.0 pg Mean Corpuscular Hemoglobin Concent 34.4 g/dl Platelet Count 132 K/uL Mean Platelet Volume 8.9 fL Neutrophils (%) (Auto) 84.5 % Lymphocytes (%) (Auto) 6.7 % Monocytes (%) (Auto) 8.4 % Eosinophils (%) (Auto) 0.2 % Basophils (%) (Auto) 0.0 % Neutrophils # (Auto) 4.51 K/uL Lymphocytes # (Auto) 0.36 K/uL Monocytes # (Auto) 0.45 K/uL Eosinophils # (Auto) 0.01 K/uL Basophils # (Auto) 0.00 K/uL RDW Standard Deviation 49.1 fL RDW Coefficient of Variation 15.1 % Immature Granulocyte % (Auto) 0.2 % Immature Granulocyte # (Auto) 0.01 K/uL Sodium Level 134 mmol/L Potassium Level 3.6 mmol/L Chloride Level 103 mmol/L Carbon Dioxide Level 23 mmol/L Anion Gap 8.0 mmol/L Blood Urea Nitrogen 9 mg/dl Creatinine 0.65 mg/dl Est Creatinine Clear Calc Drug Dose 86.9 ml/min Estimated GFR () 102.1 Estimated GFR (Non- 88.1 BUN/Creatinine Ratio 14.3 Random Glucose 106 mg/dl Calcium Level 8.5 mg/dl Assessment and Plan altered mental status -appearing to be septic/metabolic encephalopathy -strongly suspect pneumonia as culprit, with hyponatremia contributing. follow for other factors as well, supportive care -on encephalopathy coverage per ID. MRI negative. 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 continues to improve -with hindsight of likely chronically aspirating, lung-induced mild SiADH seems more likely possible seizure -no structural brain disease, no further events. likely due to combined physiologic and neurologic stressors from all of above afib -rate controlled. currently can't take xarelto - on hold. is on DVT proph lovenox dosing for now, can increase if it's clear no procedures (EGD) will be needed DVT proph - lovenox (resume full anticoag for afib once clearly safe to do so) mild troponin elevation -demand ischemia. follow clinically hypertension -home meds on hold while NPO. 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 outpt f/u Code status: do not resuscitate
[2017-03-15] MEDS ORDERED: TPN/PPN CONSULT PHARMACY PRN (17:45)
--- NOTE | 2017-03-15 19:20 | Infectious Disease Progress Nt ---
Progress Note Date of Service Mar 15, 2017. Subjective Pt evaluation today including: conversation w/ patient, physical exam, chart review, lab review, review of studies, conversation w/ financial operations consultant, review of inpatient medication list Appears unchanged. Remains confused. No fever. Tolerating antibiotics without apparent difficulty. All Other Systems: Reviewed and Negative Medications Current Inpatient Medications Medications (Trade) Dose Ordered Sig/Tanesha Route Start Time Stop Time Status Last Admin Dose Admin Sodium Chloride 1,000 ml @ 70 mls/hr [id number] IV 03/11/17 16:45 04/10/17 16:44 03/15/17 18:27 70 MLS/HR Acetaminophen (Tylenol Tab) 650 mg Q4H PRN PO 03/11/17 16:45 04/10/17 16:44 Ondansetron HCl (Zofran Inj) 4 mg Q6H PRN IV 03/11/17 16:45 04/10/17 16:44 Atorvastatin Calcium (Lipitor Tab) 40 mg QPM PO 03/11/17 21:00 04/10/17 20:59 Cetirizine HCl (zyrTEC TAB) 10 mg QPM PO 03/11/17 21:00 04/10/17 20:59 Docusate Sodium (coLACE CAP) 100 mg BID PO 03/11/17 21:00 04/10/17 20:59 Finasteride (Proscar Tab) 5 mg QPM PO 03/11/17 21:00 04/10/17 20:59 Lisinopril (Zestril Tab) 2.5 mg QAM PO 03/12/17 09:00 04/11/17 08:59 Pantoprazole Sodium (Protonix Tab) 40 mg BID PO 03/11/17 21:00 04/10/17 20:59 Ferrous Sulfate (Feosol Tab) 325 mg BID PO 03/11/17 21:00 04/10/17 20:59 Levetiracetam 500 mg/Dextrose 105 ml @ 420 mls/hr Q12@0600,1800 IV 03/12/17 06:00 04/11/17 05:59 03/15/17 18:27 420 MLS/HR Vancomycin HCl (Consult) 1 ea UD PRN N/A 03/11/17 18:45 04/10/17 18:44 Piperacillin Sod/ Tazobactam Sod 3.375 gm/Dextrose 115 ml @ 28.75 mls/ hr Q8H IV 03/12/17 20:00 03/19/17 19:59 03/15/17 12:28 28.75 MLS/HR Acyclovir Sodium 800 mg/Dextrose 266 ml @ 265 mls/hr Q8H IV 03/12/17 19:00 03/22/17 17:44 03/15/17 19:03 265 MLS/HR Hydralazine HCl (HydrALAZINE INJ) 10 mg Q6 PRN IV. 03/13/17 09:15 04/12/17 09:14 03/14/17 02:56 10 MG Albuterol/ Ipratropium (Duoneb) 3 ml Q4R INH 03/13/17 12:00 04/12/17 11:59 03/15/17 16:24 3 ML Albuterol Sulfate (Ventolin 0.083% 2.5MG/3ML Neb) 2.5 mg Q2R PRN INH 03/13/17 10:45 04/12/17 10:44 Metoprolol Succinate (Toprol Xl Tab) 25 mg BID PO 03/13/17 14:15 04/10/17 20:59 Future Hold Enoxaparin Sodium (Lovenox Inj) 40 mg QAM SQ 03/14/17 09:00 04/13/17 08:59 03/15/17 07:40 40 MG Metoprolol Tartrate (Lopressor Iv) 2.5 mg Q6 IV. 03/14/17 12:00 04/13/17 11:59 03/15/17 18:27 2.5 MG Vancomycin HCl 1250 mg/Sodium Chloride 275 ml @ 125 mls/hr Q14H IV 03/15/17 00:00 03/18/17 18:59 03/15/17 13:19 125 MLS/HR Miscellaneous Information (Pharmacy Tpn/ Ppn Consult Active) 1 ea UD PRN N/A 03/15/17 17:45 04/14/17 17:44 Objective Vital Signs Date Time Temp Pulse Resp B/P (MAP) Pulse Ox O2 Delivery O2 Flow Rate FiO2 03/15/17 18:27 78 147/86 03/15/17 18:26 77 147/86 (106) 03/15/17 16:00 96 Nasal Cannula 4.0 03/15/17 15:51 36.9 75 16 153/84 (107) 96 Nasal Cannula 5.0 03/15/17 15:20 72 20 96 Nasal Cannula 4.0 03/15/17 12:30 Nasal Cannula 5.0 03/15/17 12:29 79 111/60 03/15/17 11:16 68 20 96 Nasal Cannula 4.0 03/15/17 11:04 36.4 69 20 158/81 (106) 99 03/15/17 07:45 Nasal Cannula 4.0 03/15/17 07:37 73 20 95 Nasal Cannula 4.0 03/15/17 07:34 36.5 65 20 139/85 (103) 96 03/15/17 05:59 79 144/86 03/15/17 04:11 36.8 79 20 145/87 (106) 95 2.0 03/15/17 04:00 Nasal Cannula 5.0 Humidified Oxygen 03/15/17 03:23 86 20 95 Nasal Cannula 4.0 03/15/17 00:33 78 179/116 03/15/17 00:09 36.6 74 20 162/72 (102) 96 Nasal Cannula 4.0 03/15/17 00:00 Nasal Cannula 5.0 Humidified Oxygen 03/14/17 23:21 82 20 94 Nasal Cannula 4.0 03/14/17 21:01 80 20 94 Nasal Cannula 6.0 03/14/17 20:00 Nasal Cannula 5.0 Humidified Oxygen 03/14/17 19:22 36.7 77 18 172/86 (114) 95 4.0 Physical Exam General Appearance: WD/WN, no apparent distress Eyes: normal inspection, sclerae normal ENT: normal ENT inspection, pharynx normal Neck: supple, no adenopathy, trachea midline Respiratory/Chest: chest non-tender, no respiratory distress, no accessory muscle use, + rales Cardiovascular: regular rate, rhythm, no gallop, no murmur Abdomen: normal bowel sounds, non tender, soft, no organomegaly Extremities: non-tender, no calf tenderness Neurologic/Psychiatric: alert, + disoriented Skin: normal color, no rash Lymphatic: no adenopathy Laboratory Results [~ rep ct add3]] VIDEO SWALLOW CLINICAL HISTORY: 86 years-old Male presenting with dysphagia, aspiration pneumonia. TECHNIQUE: Video fluoroscopic evaluation of swallowing was performed in the AP and lateral projections in conjunction with speech pathology. The patient was administered various textures, including nectar-thick and thin liquid barium, a barium coated wafer, and barium pudding. COMPARISON: 12/01/2015. FINDINGS: Normal movement of food boluses through the oral cavity. Penetration observed with thin liquids. Aspiration observed with nectar thick liquids. Intraesophageal reflux noted into the hypopharynx, intermittently resulting in aspiration. Fluoroscopy dosage (mGy): Not available. Fluoroscopy time: 1.1 minutes. Number of fluoroscopic spot images: 0. IMPRESSION: Last 24 Hours Test 03/15/17 07:13 White Blood Count 5.34 K/uL Red Blood Count 3.61 M/uL Hemoglobin 11.2 g/dL Hematocrit 32.6 % Mean Corpuscular Volume 90.3 fL Mean Corpuscular Hemoglobin 31.0 pg Mean Corpuscular Hemoglobin Concent 34.4 g/dl Platelet Count 132 K/uL Mean Platelet Volume 8.9 fL Neutrophils (%) (Auto) 84.5 % Lymphocytes (%) (Auto) 6.7 % Monocytes (%) (Auto) 8.4 % Eosinophils (%) (Auto) 0.2 % Basophils (%) (Auto) 0.0 % Neutrophils # (Auto) 4.51 K/uL Lymphocytes # (Auto) 0.36 K/uL Monocytes # (Auto) 0.45 K/uL Eosinophils # (Auto) 0.01 K/uL Basophils # (Auto) 0.00 K/uL RDW Standard Deviation 49.1 fL RDW Coefficient of Variation 15.1 % Immature Granulocyte % (Auto) 0.2 % Immature Granulocyte # (Auto) 0.01 K/uL Sodium Level 134 mmol/L Potassium Level 3.6 mmol/L Chloride Level 103 mmol/L Carbon Dioxide Level 23 mmol/L Anion Gap 8.0 mmol/L Blood Urea Nitrogen 9 mg/dl Creatinine 0.65 mg/dl Est Creatinine Clear Calc Drug Dose 86.9 ml/min Estimated GFR () 102.1 Estimated GFR (Non- 88.1 BUN/Creatinine Ratio 14.3 Random Glucose 106 mg/dl Calcium Level 8.5 mg/dl Assessment and Plan acute encephalopathy with seizures following what appeared to be respiratory tract infection and possible pulmonary infection. Patient to be continued on acyclovir for 7 days total. Will discuss with all involved.
[2017-03-15] MEDS: ATORVASTATIN 20 MG TAB PO SCH (21:00)
[2017-03-15] MEDS: CETIRIZINE HCL 10 MG TAB PO SCH (21:00)
[2017-03-15] MEDS: FINASTERIDE 5 MG TAB PO SCH (21:00)
--- NOTE | 2017-03-15 22:32 | GASTROINTESTINAL CONSULTATION ---
DATE OF CONSULTATION: 03/15/2017 REASON FOR EVALUATION: Zenker diverticulum. HISTORY OF PRESENT ILLNESS: The patient is an 86-year-old resident of [facility] who presented on March 11 to the Emergency Room with cough and generalized weakness. The patient is also noted to be anemic. 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 Of note is that he is not able to swallow very well and he is a little bit malnourished. He has had pneumonia in the past, probably from aspiration. He is also on Xarelto for aFib. PAST MEDICAL HISTORY: Remarkable for hypertension, hyperlipidemia, pulmonary infections. He has had a hernia repair. He has had acid reflux disease. He also got some mild dementia. MEDICATIONS: Per list. ALLERGIES: None. FAMILY HISTORY: History of a GI malignancy. SOCIAL HISTORY: The patient is . He is retired and lives at [facility]. Does not smoke. REVIEW OF SYSTEMS: Cough, some mild shortness of breath and some dysuria. PHYSICAL EXAMINATION: GENERAL: The patient is coughing up thick mucus, some of it blood tinged. VITAL SIGNS: Blood pressure is 138/87, pulse 70, saturation on BiPAP 50% is 98%. LABORATORY DATA: Shows an albumin of 3.5. CBC shows a hemoglobin of 11.7. BUN 14, creatinine 1.2. Liver profile is normal. IMPRESSION AND PLAN: The patient has a Zenker diverticulum. He is having very much difficulty swallowing. A nasogastric feeding tube was attempted to be passed by the nurse, but they could not pass it. At this time, I would highly advise against trying to pass a nasogastric feeding tube as it is most likely preferentially going to go into the diverticulum and is a high risk for perforating esophagus. I would recommend a PICC line with peripheral alimentation for now and hopefully when the patient's baseline health status improves, we can arrange for him to go down to [place] to see Dr. Antonino Senior, who does per oral endoscopic myotomy for the Zenker diverticulum, which will eliminate the diverticulum and allow the patient to swallow better again. This will need to be done off anticoagulants; however. Will continue to follow the patient.
[2017-03-16] VITALS (13 sets, daily range): BP systolic 167–209; BP diastolic 84–129; PULSE 70–97; TEMP 34.7–37; O2SAT 91–99
[2017-03-16] MEDS: METOPROLOL TARTRATE 1 MG/ML VIAL IV. SCH ×5 (00:04→23:52)
[2017-03-16] MEDS ORDERED: LORAZEPAM INJ 0.5 MG in SYRINGE 0.25 ML IV STA (00:48)
[2017-03-16] MEDS: ACYCLOVIR SOD INJ 800 MG in DEXTROSE 5% 250ML 250 ML IV SCH ×3 (02:30→19:09)
[2017-03-16] MEDS: ALBUT/IPRATROP 3MG/0.5MG NEB 3 ML VIAL INH SCH ×6 (04:00→23:28)
[2017-03-16] MEDS: VANCOMYCIN INJ 1,250 MG in SODIUM CHLORIDE 0.9% 250ML 250 ML IV SCH ×2 (04:15→18:46)
[2017-03-16] MEDS: PIPERACILL/TAZOBAC IV 3.375 GM in DEXTROSE 5% 100ML IV SCH ×3 (04:15→20:09)
[2017-03-16 05:44] LABS: COMPLETE YES; EOS % 0.2 %; HEMATOCRIT 33.3 % (42-52); IG% 0.4 %; LYMPH % 7.9 %; LYMPH ABS # 0.38 K/uL (1.2-3.4); MEAN CELL VOLUME 90.5 fL (80-100); MEAN CORPUSCULAR HEMOGLOBIN 30.4 pg (25-34); MEAN CORPUSCULAR HGB CONC 33.6 g/dl (32-36); MEAN PLATELET VOLUME 8.7 fL (7.4-10.4); MONO % 12.3 %; NEUT % 79.2 %; PLATELET COUNT 141 K/uL (130-400); RED BLOOD COUNT 3.68 M/uL (4.7-6.1); WHITE BLOOD COUNT 4.81 K/uL (4.8-10.8)
[2017-03-16] MEDS: LEVETIRACETAM IV 500 MG in DEXTROSE 5% 100ML 100 ML IV SCH ×2 (05:48→18:43)
[2017-03-16 06:17] LABS: BUN/CREATININE RATIO 12.4 (10-20); CALCIUM 8.3 mg/dl (8.5-10.1); CREATININE 0.73 mg/dl (0.60-1.40); MAGNESIUM 1.8 mg/dl (1.8-2.4); POTASSIUM 3.2 mmol/L (3.5-5.1)
[2017-03-16 06:18] LABS: C-REACTIVE PROTEIN 5.23 mg/dl (0-0.29); PHOSPHORUS 2.8 mg/dl (2.5-4.9)
[2017-03-16 06:30] LABS: PREALBUMIN 11.6 mg/dl (20-40)
[2017-03-16] MEDS: FERROUS SULFATE 325 MG TAB PO SCH ×2 (08:27→21:00)
[2017-03-16] MEDS: DOCUSATE SODIUM 100 MG CAP PO SCH ×2 (08:27→21:00)
[2017-03-16] MEDS: SODIUM CHLORIDE 0.9% 1000ML 1,000 ML IV SCH (08:27)
[2017-03-16] MEDS: LISINOPRIL 2.5 MG TAB PO SCH (08:28)
[2017-03-16] MEDS: PANTOprazole SOD 40 MG TAB PO SCH ×2 (08:28→21:00)
[2017-03-16] MEDS: ENOXAPARIN 40 MG/0.4 ML SYR SQ SCH (08:28)
[2017-03-16] MEDS ORDERED: MAGNESIUM SULFATE 1GM / D5W 1 GM in PREMIXED IN D5W 100 ML IV ONE (12:00)
[2017-03-16] MEDS ORDERED: HALOPERIDOL LACTATE 5 MG/ML 1 ML VIAL ONE (13:07)
[2017-03-16] MEDS: POTASSIUM CHLR 10 MEQ / WTR 10 MEQ in PREMIXED WATER 100 ML IV SCH ×4 (13:13→16:54)
[2017-03-16] MEDS ORDERED: NURSING VERBAL MED ORDER ONE (13:15)
[2017-03-16] MEDS ORDERED: HALOPERIDOL LACTATE 5 MG/ML 1 ML VIAL IM PRN ×2 (13:45→18:30)
--- NOTE | 2017-03-16 14:30 | Progress Note ---
Subjective Date of Service: Mar 16, 2017. Subjective Pt evaluation today including: conversation w/ patient, conversation w/ family , physical exam, chart review, lab review, review of studies more restless today. less HPI obtainable - seems to be breathing better but mostly moving around restlessly, talking at times about moving furniture. family present and updated extensively. ROS otherwise unobtainable except for as above Problem List Medical Problems: (1) Altered mental status Status: Acute (2) Bleeding internal hemorrhoids Status: Acute (3) Constipation Status: Acute (4) Epistaxis Status: Acute (5) Hypoxia Status: Acute (6) Lactic acidosis Status: Acute (7) PNA (pneumonia) Status: Acute (8) Respiratory failure Status: Acute (9) Severe anemia Status: Acute (10) Sinusitis Status: Acute (11) Skin lesion of scalp Status: Acute (12) Vertigo Status: Acute (13) Weakness Status: Acute Objective Vital Signs Date Time Temp Pulse Resp B/P (MAP) Pulse Ox O2 Delivery O2 Flow Rate FiO2 03/16/17 12:00 Nasal Cannula 4.0 03/16/17 11:26 70 175/90 03/16/17 11:20 99 Room Air Nasal Cannula 03/16/17 11:19 35.7 70 20 175/90 (118) 99 Room Air Nasal Cannula 03/16/17 11:14 76 18 91 Nasal Cannula 4.0 03/16/17 08:00 Nasal Cannula 4.0 03/16/17 07:49 89 22 97 Nasal Cannula 4.0 03/16/17 07:29 36.4 89 16 184/110 (134) 98 Nasal Cannula 03/16/17 05:46 89 144/96 03/16/17 04:00 Nasal Cannula 4.0 Humidified Oxygen 03/16/17 04:00 85 20 97 Nasal Cannula 4.0 03/16/17 03:30 36.2 88 22 179/89 (119) 96 Nasal Cannula 4.0 03/16/17 00:04 92 170/86 03/16/17 00:00 Nasal Cannula 4.0 Humidified Oxygen 03/15/17 23:54 36.2 100 24 188/108 (134) 95 Nasal Cannula 4.0 03/15/17 23:24 100 20 95 Nasal Cannula 4.0 03/15/17 21:01 36.8 100 24 184/88 (120) 96 Nasal Cannula 4.0 03/15/17 20:00 Nasal Cannula 4.0 03/15/17 19:54 80 20 96 Nasal Cannula 4.0 03/15/17 18:27 78 147/86 03/15/17 18:26 77 147/86 (106) 03/15/17 16:00 96 Nasal Cannula 4.0 03/15/17 15:51 36.9 75 16 153/84 (107) 96 Nasal Cannula 5.0 03/15/17 15:20 72 20 96 Nasal Cannula 4.0 Physical Exam General Appearance: no apparent distress (restless but no pain or respiratory distress) Eyes: EOMI ENT: hearing grossly normal Neck: trachea midline Respiratory/Chest: no respiratory distress, no accessory muscle use, + rhonchi (scattered, R>L but better air entry to bases - still more quiet at base R worse than L but air entry considerably better b/l bases. no wheeze good effort ), + pertinent finding (no crepitis chest wall/skin) Cardiovascular: regular rate, rhythm (rate controlled) Extremities: normal range of motion Neurologic/Psychiatric: brush maker II-XII nml as tested, alert (confused and restless) Skin: normal color, warm/dry Laboratory Results Last 24 Hours Test 03/16/17 05:26 White Blood Count 4.81 K/uL Red Blood Count 3.68 M/uL Hemoglobin 11.2 g/dL Hematocrit 33.3 % Mean Corpuscular Volume 90.5 fL Mean Corpuscular Hemoglobin 30.4 pg Mean Corpuscular Hemoglobin Concent 33.6 g/dl Platelet Count 141 K/uL Mean Platelet Volume 8.7 fL Neutrophils (%) (Auto) 79.2 % Lymphocytes (%) (Auto) 7.9 % Monocytes (%) (Auto) 12.3 % Eosinophils (%) (Auto) 0.2 % Basophils (%) (Auto) 0.0 % Neutrophils # (Auto) 3.81 K/uL Lymphocytes # (Auto) 0.38 K/uL Monocytes # (Auto) 0.59 K/uL Eosinophils # (Auto) 0.01 K/uL Basophils # (Auto) 0.00 K/uL RDW Standard Deviation 49.2 fL RDW Coefficient of Variation 14.9 % Immature Granulocyte % (Auto) 0.4 % Immature Granulocyte # (Auto) 0.02 K/uL Sodium Level 137 mmol/L Potassium Level 3.2 mmol/L Chloride Level 103 mmol/L Carbon Dioxide Level 23 mmol/L Anion Gap 11.0 mmol/L Blood Urea Nitrogen 9 mg/dl Creatinine 0.73 mg/dl Est Creatinine Clear Calc Drug Dose 77.4 ml/min Estimated GFR () 97.3 Estimated GFR (Non- 84.0 BUN/Creatinine Ratio 12.4 Random Glucose 87 mg/dl Calcium Level 8.3 mg/dl Phosphorus Level 2.8 mg/dl Magnesium Level 1.8 mg/dl Total Bilirubin 1.6 mg/dl Aspartate Amino Transf (AST/SGOT) 160 U/L Alanine Aminotransferase (ALT/SGPT) 38 U/L Alkaline Phosphatase 79 U/L C-Reactive Protein 5.23 mg/dl Albumin 2.8 gm/dl Prealbumin 11.6 mg/dl Triglycerides Level 60 mg/dl Assessment and Plan altered mental status -appearing to be septic/metabolic encephalopathy -strongly suspect pneumonia as culprit, with hyponatremia contributing. with change in pattern today --> suspect it is because he is oxygenating better/ pneumonia improving and therefore he's feeling more able to move but still confused, but will rescreen for any new/potential worsening reasons (no further ativan, Na is now normal, repeat CXR, check UA and Cx, continue to follow serial exams) -on encephalopathy coverage per ID. MRI negative. current clinical picture favors encephalopathy over encephalitis but appreciate ongoing ID input -haldol IM prn severe agitation pneumonia w acute hypoxic respiratory failure -dtr notes he gets respiratory illnesses every fall - raising suspicion of baseline allergic or pulmonary diseases; however, aspiration appears dominant piece of picture -for now continue zosyn and vanco - does appear improving -continue nebs/pulmonary toilet -continue supportive care dysphagia/aspiration due to zenkers diverticula -GI consult appreciated -still needs to be NPO, since NGT did not go easily safer to not retry; Dr Mckeon reached out to Dr Montilla at [facility] who does endoscopic repairs of zenker's --> awaiting call back to discuss timing. both dr mckeno and myself agree timing should be at some point during this hospitalization if at all feasible since otherwise raises risk of comorbidities by requiring longer time NPO and TPN prolonged poor PO intake/acute protein-calorie malnutrition -unable to easily pass NGT, and since this was not able to be done easily GI notes repeat efforts would possibly be harmful, TPN to be started. was unable to get PICC placed due to venous anatomy - w hx of CHF i harbor concerns on fluid volume w PPN, therefore consult surgery to assist in obtaining usable central access for TPN hyponatremia -likely relates to acute illness, continue to follow; did have mild hyponatremia (132) late december - so possibly some baseline of siadh. currently normalized -with hindsight of likely chronically aspirating, lung-induced mild SiADH seems more likely possible seizure -no structural brain disease, no further events. likely due to combined physiologic and neurologic stressors from all of above afib -rate controlled. currently can't take xarelto - on hold. is on DVT proph lovenox dosing for now, can increase if it's clear no procedures (EGD, IV access ) will be needed -- of note, lovenox can be held for procedures when necessary DVT proph - lovenox (resume full anticoag for afib once clearly safe to do so) mild troponin elevation -demand ischemia. follow clinically hypertension -home meds on hold while NPO. hydralazine prn, BP sl higher now but fitting with more restlessness hyperlipidemia -lipitor on hold 5 cm aneurysm -prior hospitalist made family aware. outpt f/u Code status: do not resuscitate
[2017-03-16] MEDS ORDERED: CUSTOM CENTRAL PN 1 BAG IV SCH (16:00)
[2017-03-16] MEDS ORDERED: DEXTROSE 10% 1,000 ML IV PRN (16:00)
--- NOTE | 2017-03-16 16:09 | PROGRESS NOTE ---
DATE: 03/16/2017 The patient has remained stable. His vital signs are normal except for his blood pressure, which is still a bit high at 175/90. The patient has a Zenker's diverticulum and is having difficulty swallowing with recurrent aspiration. I have advised the care team not to try to place a nasogastric tube as that might rupture the diverticulum. I left a note today with Dr. Antonino Senior at [facility], who does peroral endoscopic myotomy. I am waiting to hear back from him about timing and logistics about getting this done on this patient. In the meantime, after discussion with Dr. Dorantes, the patient will be placed on IV hyperalimentation to provide nutrition to help him recover from his aspiration and improve his strength.
--- NOTE | 2017-03-16 16:16 | Procedure Note ---
Procedure Note Procedure Date Mar 16, 2017. (Hemanth Monson PA-C) Procedure Description Comments: i was present through out the entire procedure. (Lukasz Ruano MD) Central Line Procedure time out: side/site verified, patient ID confirmed, sterile procedure used Consent obtained: written Time of procedure: 15:45 Performed by: physician spacer type bar and segment Indications: poor venous access, central drug admin., long-term access Prep: chlorhexadine prep, sterile drape, sterile procedures used Anesthesia: lidocaine 1% without epi Volume anesthetic (ml's): 3 Central line lumen: triple Central line location: internal jugular (R) Additional details: percutaneous placement, ultrasound guidance, Selinger technique used, line sutured, good blood return CXR: appropriate position Complications: none Patient tolerated procedure: well Post-procedure vital signs: reviewed and stable Comments: Point of Care Bedside Ultrasound Procedure: Procedural Ultrasound Procedure Date: 03/16/2017 Indication: Poor Access, Need for TPN Attending: Dr. Lukasz Ruano MD Resident/Physician Newspaper Inserter: Hemanth Monson PA-C Artery AND Vein visualized: YES Compressible Vein: YES Guidewire or Short Catheter seen in vein prior to dilation: YES Line confirmed in Vein with ultrasound: YES (Hemanth Monson PA-C)
--- NOTE | 2017-03-16 16:34 | DIAGNOSTIC IMAGING REPORT ---
CHEST ONE VIEW PORTABLE CLINICAL HISTORY: 86 years-old Male presenting with s/p RIGHT IJ. TECHNIQUE: Portable upright AP view of the chest was obtained. COMPARISON: 03/11/2017. FINDINGS: Interval placement of a right internal jugular central venous catheter which terminates in the mid SVC. Left-sided pacer with single lead to the right ventricular apex. Atherosclerosis of aortic arch. Cardiac silhouette enlarged, unchanged. Multiple external leads project over the mediastinum degrading evaluation. Bibasilar hazy opacities with a gradient of density with bilateral small pleural effusions, new from prior. No pneumothorax. Degenerative changes of the thoracic spine. Upper abdomen normal. IMPRESSION: 1. Interval development of bilateral small pleural effusions and likely bibasilar atelectasis. 2. Right IJ central venous catheter terminates appropriately in the mid SVC. No pneumothorax. Electronically signed by: Demetris Patton M.D. 03/16/2017 4:32 PM Dictated Date/Time: 03/16/2017 4:30 PM
[2017-03-16] MEDS ORDERED: ENALAPRILAT IV 2.5 MG in DEXTROSE 5% 25ML 25 ML IV ONE (18:15)
--- NOTE | 2017-03-16 18:44 | DIAGNOSTIC IMAGING REPORT ---
HEAD WITHOUT CONTRAST (CT) CLINICAL HISTORY: 86 years-old Male presenting with HTN, apnea - r/o bleed. TECHNIQUE: Multidetector CT imaging of the head was performed without the use of intravenous contrast. IV contrast: None. A dose lowering technique was used consistent with the principles of ALARA (as low as reasonably achievable). COMPARISON: 03/11/2017. CT DOSE (mGy.cm): The estimated cumulative dose is 2346.04 mGy.cm. FINDINGS: Image quality degraded by suboptimal positioning and extensive streak artifact. This limits evaluation of the posterior fossa and vertex. Assembly Leader topogram: Unremarkable. Proportional ventricular and sulcal prominence, likely age-related parenchymal volume loss. Periventricular and subcortical white matter hypoattenuation, nonspecific but likely indicative of chronic small vessel ischemic change. No mass effect or midline shift. No hemorrhage or acute territorial infarct. No extra-axial fluid collection. Trace fluid in the right mastoid air cells. Calvarium intact. IMPRESSION: 1. No acute intracranial pathology. 2. Chronic small vessel ischemic change. Electronically signed by: Demetris Patton M.D. 03/16/2017 6:42 PM Dictated Date/Time: 03/16/2017 6:39 PM
[2017-03-16 19:49] LABS: ALLEN TEST POS (POS); ARTERIAL BLD GAS O2 SATURATION 99.2 % (90-95); ARTERIAL BLOOD GAS BASE EXCESS -0.8 mEq/L (-9-1.8); ARTERIAL BLOOD GAS HCO3 22 mmol/L (19-24); ARTERIAL BLOOD GAS PO2 147 mm/Hg (80-95); ARTERIAL BLOOD GAS pH 7.49 (7.35-7.45); O2 ADMINISTRATION 6L
--- NOTE | 2017-03-16 19:57 | Infectious Disease Progress Nt ---
Progress Note Date of Service Mar 16, 2017. Subjective Pt evaluation today including: conversation w/ patient, physical exam, chart review, lab review, review of studies, conversation w/ program evaluation consultant, review of inpatient medication list patient is slightly more agitated today, remains confused, no fever. No other obvious new problems overnight. All Other Systems: Reviewed and Negative Medications Current Inpatient Medications Medications (Trade) Dose Ordered Sig/Tanesha Route Start Time Stop Time Status Last Admin Dose Admin Acetaminophen (Tylenol Tab) 650 mg Q4H PRN PO 03/11/17 16:45 04/10/17 16:44 Ondansetron HCl (Zofran Inj) 4 mg Q6H PRN IV 03/11/17 16:45 04/10/17 16:44 Atorvastatin Calcium (Lipitor Tab) 40 mg QPM PO 03/11/17 21:00 04/10/17 20:59 Cetirizine HCl (zyrTEC TAB) 10 mg QPM PO 03/11/17 21:00 04/10/17 20:59 Docusate Sodium (coLACE CAP) 100 mg BID PO 03/11/17 21:00 04/10/17 20:59 Finasteride (Proscar Tab) 5 mg QPM PO 03/11/17 21:00 04/10/17 20:59 Lisinopril (Zestril Tab) 2.5 mg QAM PO 03/12/17 09:00 04/11/17 08:59 Future Hold Pantoprazole Sodium (Protonix Tab) 40 mg BID PO 03/11/17 21:00 04/10/17 20:59 Ferrous Sulfate (Feosol Tab) 325 mg BID PO 03/11/17 21:00 04/10/17 20:59 Levetiracetam 500 mg/Dextrose 105 ml @ 420 mls/hr Q12@0600,1800 IV 03/12/17 06:00 04/11/17 05:59 03/16/17 18:43 420 MLS/HR Vancomycin HCl (Consult) 1 ea UD PRN N/A 03/11/17 18:45 04/10/17 18:44 Piperacillin Sod/ Tazobactam Sod 3.375 gm/Dextrose 115 ml @ 28.75 mls/ hr Q8H IV 03/12/17 20:00 03/19/17 19:59 03/16/17 11:26 28.75 MLS/HR Acyclovir Sodium 800 mg/Dextrose 266 ml @ 265 mls/hr Q8H IV 03/12/17 19:00 03/22/17 17:44 03/16/17 19:09 265 MLS/HR Hydralazine HCl (HydrALAZINE INJ) 10 mg Q6 PRN IV. 03/13/17 09:15 04/12/17 09:14 03/14/17 02:56 10 MG Albuterol/ Ipratropium (Duoneb) 3 ml Q4R INH 03/13/17 12:00 04/12/17 11:59 03/16/17 18:55 3 ML Albuterol Sulfate (Ventolin 0.083% 2.5MG/3ML Neb) 2.5 mg Q2R PRN INH 03/13/17 10:45 04/12/17 10:44 Metoprolol Succinate (Toprol Xl Tab) 25 mg BID PO 03/13/17 14:15 04/10/17 20:59 Future Hold Enoxaparin Sodium (Lovenox Inj) 40 mg QAM SQ 03/14/17 09:00 04/13/17 08:59 03/16/17 08:28 40 MG Metoprolol Tartrate (Lopressor Iv) 2.5 mg Q6 IV. 03/14/17 12:00 04/13/17 11:59 03/16/17 19:01 2.5 MG Vancomycin HCl 1250 mg/Sodium Chloride 275 ml @ 125 mls/hr Q14H IV 03/15/17 00:00 03/18/17 18:59 03/16/17 18:46 125 MLS/HR Miscellaneous Information (Pharmacy Tpn/ Ppn Consult Active) 1 ea UD PRN N/A 03/15/17 17:45 04/14/17 17:44 Nutrition (Parenteral) 0 ml @ 0 mls/hr TODAY@1600 IV 03/16/17 16:00 03/17/17 15:59 03/16/17 17:26 0 MLS/HR Dextrose 1,000 ml @ 0 mls/hr Q0M PRN IV 03/16/17 16:00 04/15/17 15:59 Enalaprilat 2.5 mg/Dextrose 27 ml @ 100 mls/hr QID IV 03/16/17 21:00 04/15/17 20:59 Haloperidol Lactate (Haldol Inj) 2.5 mg Q6 PRN IM 03/16/17 18:30 04/15/17 13:44 Objective Vital Signs Date Time Temp Pulse Resp B/P (MAP) Pulse Ox O2 Delivery O2 Flow Rate FiO2 03/16/17 19:01 80 176/103 03/16/17 18:56 97 20 96 Nasal Cannula 4.0 03/16/17 16:16 173/123 (140) 03/16/17 16:09 34.7 86 18 209/129 (155) 95 Room Air 03/16/17 16:00 Nasal Cannula 4.0 03/16/17 15:02 70 20 98 Nasal Cannula 4.0 03/16/17 12:00 Nasal Cannula 4.0 03/16/17 11:26 70 175/90 03/16/17 11:20 99 Room Air Nasal Cannula 03/16/17 11:19 35.7 70 20 175/90 (118) 99 Room Air Nasal Cannula 03/16/17 11:14 76 18 91 Nasal Cannula 4.0 03/16/17 08:00 Nasal Cannula 4.0 03/16/17 07:49 89 22 97 Nasal Cannula 4.0 03/16/17 07:29 36.4 89 16 184/110 (134) 98 Nasal Cannula 03/16/17 05:46 89 144/96 03/16/17 04:00 Nasal Cannula 4.0 Humidified Oxygen 03/16/17 04:00 85 20 97 Nasal Cannula 4.0 03/16/17 03:30 36.2 88 22 179/89 (119) 96 Nasal Cannula 4.0 03/16/17 00:04 92 170/86 03/16/17 00:00 Nasal Cannula 4.0 Humidified Oxygen 03/15/17 23:54 36.2 100 24 188/108 (134) 95 Nasal Cannula 4.0 03/15/17 23:24 100 20 95 Nasal Cannula 4.0 03/15/17 21:01 36.8 100 24 184/88 (120) 96 Nasal Cannula 4.0 03/15/17 20:00 Nasal Cannula 4.0 Physical Exam General Appearance: WD/WN, no apparent distress Eyes: normal inspection, sclerae normal ENT: normal ENT inspection, pharynx normal Neck: supple, no adenopathy, trachea midline Respiratory/Chest: chest non-tender, lungs clear, normal breath sounds, no respiratory distress Cardiovascular: regular rate, rhythm, no gallop, no murmur Abdomen: normal bowel sounds, non tender, soft, no organomegaly Extremities: non-tender, no calf tenderness Neurologic/Psychiatric: alert, + disoriented Skin: normal color, no rash Lymphatic: no adenopathy Laboratory Results Last 24 Hours Test 03/16/17 05:26 03/16/17 19:35 White Blood Count 4.81 K/uL Red Blood Count 3.68 M/uL Hemoglobin 11.2 g/dL Hematocrit 33.3 % Mean Corpuscular Volume 90.5 fL Mean Corpuscular Hemoglobin 30.4 pg Mean Corpuscular Hemoglobin Concent 33.6 g/dl Platelet Count 141 K/uL Mean Platelet Volume 8.7 fL Neutrophils (%) (Auto) 79.2 % Lymphocytes (%) (Auto) 7.9 % Monocytes (%) (Auto) 12.3 % Eosinophils (%) (Auto) 0.2 % Basophils (%) (Auto) 0.0 % Neutrophils # (Auto) 3.81 K/uL Lymphocytes # (Auto) 0.38 K/uL Monocytes # (Auto) 0.59 K/uL Eosinophils # (Auto) 0.01 K/uL Basophils # (Auto) 0.00 K/uL RDW Standard Deviation 49.2 fL RDW Coefficient of Variation 14.9 % Immature Granulocyte % (Auto) 0.4 % Immature Granulocyte # (Auto) 0.02 K/uL Sodium Level 137 mmol/L Potassium Level 3.2 mmol/L Chloride Level 103 mmol/L Carbon Dioxide Level 23 mmol/L Anion Gap 11.0 mmol/L Blood Urea Nitrogen 9 mg/dl Creatinine 0.73 mg/dl Est Creatinine Clear Calc Drug Dose 77.4 ml/min Estimated GFR () 97.3 Estimated GFR (Non- 84.0 BUN/Creatinine Ratio 12.4 Random Glucose 87 mg/dl Calcium Level 8.3 mg/dl Phosphorus Level 2.8 mg/dl Magnesium Level 1.8 mg/dl Total Bilirubin 1.6 mg/dl Aspartate Amino Transf (AST/SGOT) 160 U/L Alanine Aminotransferase (ALT/SGPT) 38 U/L Alkaline Phosphatase 79 U/L C-Reactive Protein 5.23 mg/dl Albumin 2.8 gm/dl Prealbumin 11.6 mg/dl Triglycerides Level 60 mg/dl Arterial Blood pH 7.49 Arterial Blood Partial Pressure CO2 29 mmHg Arterial Blood Partial Pressure O2 147 mm/Hg Arterial Blood HCO3 22 mmol/L Arterial Blood Oxygen Saturation 99.2 % Arterial Blood Base Excess -0.8 mEq/L Arterial Blood Gas Delivery 6L Maximiliano Test POS Assessment and Plan acute encephalopathy with seizures following what appeared to be respiratory tract infection and possible pulmonary infection. Patient to be continued on acyclovir for 7 days total. Will discuss with all involved.
[2017-03-16] MEDS: FINASTERIDE 5 MG TAB PO SCH (21:00)
[2017-03-16] MEDS: ATORVASTATIN 20 MG TAB PO SCH (21:00)
[2017-03-16] MEDS: CETIRIZINE HCL 10 MG TAB PO SCH (21:00)
[2017-03-16] MEDS: ENALAPRILAT IV 2.5 MG in DEXTROSE 5% 25ML 25 ML IV SCH (21:15)
[2017-03-16 22:51] LABS: BUN/CREATININE RATIO 13.5 (10-20); CALCIUM 8.8 mg/dl (8.5-10.1); CREATININE 0.62 mg/dl (0.60-1.40); MAGNESIUM 1.9 mg/dl (1.8-2.4); POTASSIUM 3.3 mmol/L (3.5-5.1)
[2017-03-16 23:24] LABS: URINE APPEARANCE CLEAR (CLEAR); URINE BILIRUBIN NEG (NEG); URINE COLOR YELLOW; URINE NITRITE NEG (NEG); URINE SPECIFIC GRAVITY 1.018 (1.000-1.030); UROBILINOGEN NEG (NEG)
[2017-03-16 23:33] LABS: MANUAL MICROSCOPIC REQUIRED? NO; REVIEW REQ? YES
[2017-03-17] VITALS (15 sets, daily range): BP systolic 112–179; BP diastolic 77–129; PULSE 69–114; TEMP 36.4–37.1; O2SAT 92–98
[2017-03-17] MEDS ORDERED: NURSING VERBAL MED ORDER ONE (01:00)
[2017-03-17] MEDS: POTASSIUM CHLR 10MEQ / WTR IV SCH ×2 (01:33→02:36)
[2017-03-17] MEDS: ACYCLOVIR SOD INJ 800 MG in DEXTROSE 5% 250ML 250 ML IV SCH ×3 (03:20→18:16)
[2017-03-17] MEDS: PIPERACILL/TAZOBAC IV 3.375 GM in DEXTROSE 5% 100ML IV SCH ×3 (04:14→20:19)
[2017-03-17] MEDS: LEVETIRACETAM IV 500 MG in DEXTROSE 5% 100ML 100 ML IV SCH ×2 (06:10→17:19)
[2017-03-17] MEDS: METOPROLOL TARTRATE 1 MG/ML VIAL IV. SCH ×3 (06:13→18:18)
[2017-03-17] MEDS: ALBUT/IPRATROP 3MG/0.5MG NEB 3 ML VIAL INH SCH ×5 (07:00→23:01)
[2017-03-17] MEDS ORDERED: VANCOMYCIN TROUGH SCH (07:30)
[2017-03-17 08:11] LABS: BASO % 0.2 %; BASO ABS # 0.01 K/uL (0-0.2); COMPLETE YES; EOS % 0.5 %; HEMATOCRIT 33.9 % (42-52); IG% 0.3 %; LYMPH % 8.4 %; MEAN CELL VOLUME 90.9 fL (80-100); MEAN CORPUSCULAR HEMOGLOBIN 30.3 pg (25-34); MEAN CORPUSCULAR HGB CONC 33.3 g/dl (32-36); MEAN PLATELET VOLUME 9.3 fL (7.4-10.4); MONO % 14.6 %; PLATELET COUNT 179 K/uL (130-400); RED BLOOD COUNT 3.73 M/uL (4.7-6.1); WHITE BLOOD COUNT 5.97 K/uL (4.8-10.8)
[2017-03-17] MEDS: VANCOMYCIN INJ 1,250 MG in SODIUM CHLORIDE 0.9% 250ML 250 ML IV SCH ×2 (08:11→21:38)
[2017-03-17] MEDS: ENALAPRILAT IV 2.5 MG in DEXTROSE 5% 25ML 25 ML IV SCH ×4 (08:11→20:18)
[2017-03-17 08:48] LABS: BUN/CREATININE RATIO 15.4 (10-20); CALCIUM 8.8 mg/dl (8.5-10.1); CREATININE 0.74 mg/dl (0.60-1.40); MAGNESIUM 1.9 mg/dl (1.8-2.4); PHOSPHORUS 3.1 mg/dl (2.5-4.9); POTASSIUM 3.5 mmol/L (3.5-5.1)
[2017-03-17] MEDS: FERROUS SULFATE 325 MG TAB PO SCH ×2 (09:00→20:25)
[2017-03-17] MEDS: PANTOprazole SOD 40 MG TAB PO SCH ×2 (09:00→20:25)
[2017-03-17] MEDS: DOCUSATE SODIUM 100 MG CAP PO SCH ×2 (09:00→20:24)
--- NOTE | 2017-03-17 10:21 | Pharmacy Progress Note ---
Pharmacy Antibiotic Prog Note Date of Service Mar 17, 2017. Subjective The patient is currently receiving vancomycin 1250 mg IV every 10 hours, and Zosyn 3.375 Gm q8h. The patient is currently on day # 7 of vancomycin, and day #6 of Zosyn IV therapy. Objective Height (Feet): 5 Height (Inches): 11.00 Weight (Kilograms): 84.700 Levels: Item Value Date Time Vancomycin Level Trough 14.0 mcg/ml 03/17/17 0716 Previous dose edward 03/16 @1846. Lab Results (24hrs): Test 03/16/17 19:35 03/16/17 22:06 03/16/17 23:10 03/17/17 07:16 Arterial Blood pH 7.49 (7.35-7.45) Arterial Blood Partial Pressure CO2 29 mmHg (35-46) Arterial Blood Partial Pressure O2 147 mm/Hg (80-95) Arterial Blood HCO3 22 mmol/L (19-24) Arterial Blood Oxygen Saturation 99.2 % (90-95) Arterial Blood Base Excess -0.8 mEq/L (-9-1.8) Arterial Blood Gas Delivery 6L Maximiliano Test POS (POS) Sodium Level 135 mmol/L (136-145) 135 mmol/L (136-145) Potassium Level 3.3 mmol/L (3.5-5.1) 3.5 mmol/L (3.5-5.1) Chloride Level 101 mmol/L (98-107) 100 mmol/L (98-107) Carbon Dioxide Level 24 mmol/L (21-32) 26 mmol/L (21-32) Anion Gap 10.0 mmol/L (3-11) 9.0 mmol/L (3-11) Blood Urea Nitrogen 8 mg/dl (7-18) 11 mg/dl (7-18) Creatinine 0.62 mg/dl (0.60-1.40) 0.74 mg/dl (0.60-1.40) Est Creatinine Clear Calc Drug Dose 91.1 ml/min 76.3 ml/min Estimated GFR () 104.1 96.8 Estimated GFR (Non- 89.8 83.5 BUN/Creatinine Ratio 13.5 (10-20) 15.4 (10-20) Random Glucose 129 mg/dl (70-99) 131 mg/dl (70-99) Calcium Level 8.8 mg/dl (8.5-10.1) 8.8 mg/dl (8.5-10.1) Magnesium Level 1.9 mg/dl (1.8-2.4) 1.9 mg/dl (1.8-2.4) Urine Color YELLOW Urine Appearance CLEAR (CLEAR) Urine pH 6.0 (4.5-7.5) Urine Specific [place] 1.018 (1.000-1.030) Urine Protein 2+ (NEG) Urine Glucose (UA) NEG (NEG) Urine Ketones TRACE (NEG) Urine Occult Blood 2+ (NEG) Urine Nitrite NEG (NEG) Urine Bilirubin NEG (NEG) Urine Urobilinogen NEG (NEG) Urine Leukocyte Esterase SMALL (NEG) Urine WBC (Auto) 5-10 /hpf (0-5) Urine RBC (Auto) >30 /hpf (0-4) Urine Hyaline Casts (Auto) 1-5 /lpf (0-5) Urine Epithelial Cells (Auto) 10-20 /lpf (0-5) Urine Bacteria (Auto) 1+ (NEG) Urine Pathogenic Casts /lpf (0) White Blood Count 5.97 K/uL (4.8-10.8) Red Blood Count 3.73 M/uL (4.7-6.1) Hemoglobin 11.3 g/dL (14.0-18.0) Hematocrit 33.9 % (42-52) Mean Corpuscular Volume 90.9 fL (80-100) Mean Corpuscular Hemoglobin 30.3 pg (25-34) Mean Corpuscular Hemoglobin Concent 33.3 g/dl (32-36) Platelet Count 179 K/uL (130-400) Mean Platelet Volume 9.3 fL (7.4-10.4) Neutrophils (%) (Auto) 76.0 % Lymphocytes (%) (Auto) 8.4 % Monocytes (%) (Auto) 14.6 % Eosinophils (%) (Auto) 0.5 % Basophils (%) (Auto) 0.2 % Neutrophils # (Auto) 4.54 K/uL (1.4-6.5) Lymphocytes # (Auto) 0.50 K/uL (1.2-3.4) Monocytes # (Auto) 0.87 K/uL (0.11-0.59) Eosinophils # (Auto) 0.03 K/uL (0-0.5) Basophils # (Auto) 0.01 K/uL (0-0.2) RDW Standard Deviation 49.3 fL (36.4-46.3) RDW Coefficient of Variation 14.8 % (11.5-14.5) Immature Granulocyte % (Auto) 0.3 % Immature Granulocyte # (Auto) 0.02 K/uL (0.00-0.02) Phosphorus Level 3.1 mg/dl (2.5-4.9) Triglycerides Level 68 mg/dl (0-150) Vancomycin Level Trough 14.0 mcg/ml (SEE COMMENT) Micro Results: 03/11 blood x2 NG final 03/11 cath urine NG 03/12 nasal swab neg MRSA 03/16 cath urine pending Recent Pertinent Medications Item Value Date Time Vancomycin HCl 275 ml @ 125 mls/hr 03/17/17 2200 1250 mg/Sodium Q12H/IV Chloride Vancomycin HCl 275 ml @ 125 mls/hr 03/15/17 0000 1250 mg/Sodium Q14H/IV 03/17/17 0811 Chloride Piperacillin Sod/ 115 ml @ 28.75 mls/hr 03/12/17 2000 Tazobactam Sod Q8H/IV 03/17/17 0414 3.375 gm/Dextrose Acyclovir Sodium 266 ml @ 265 mls/hr 03/12/17 1900 800 mg/Dextrose Q8H/IV 03/17/17 0320 Assessment & Plan This drug level is: slightly Subtherapeutic. Will decrease dosing interval to q12h. Change to vancomycin 1250 mg IV every 12 hours. Goal trough level estimate: between 15-20 mcg/mL. Repeat level will be ordered in a few days if still on vancomycin. Continue Zosyn 3.375 Gm (infused over 4 hr) every 8 hr, for CrCl greater than 20 ml/min. Pharmacy will continue to follow and will adjust dose/frequency as necessary. Thank you
[2017-03-17] MEDS: ENOXAPARIN 40 MG/0.4 ML SYR SQ SCH (10:27)
[2017-03-17] MEDS: ALBUTEROL 0.083% NEBU SOLN 3 ML VIAL INH PRN (13:37)
[2017-03-17] MEDS ORDERED: CUSTOM CENTRAL PN 1 BAG IV SCH (16:00)
--- NOTE | 2017-03-17 16:41 | Progress Note ---
Subjective Date of Service: Mar 17, 2017. Subjective Pt evaluation today including: conversation w/ patient, conversation w/ family , physical exam, chart review, lab review, review of studies, review of inpatient medication list feeling better and family notes he's looking better. he notes breathing is better. still fairly confused but defiinitely improving. coughing and productive again. ROS otherwise unobtainable except for as above Problem List Medical Problems: (1) Altered mental status Status: Acute (2) Bleeding internal hemorrhoids Status: Acute (3) Constipation Status: Acute (4) Epistaxis Status: Acute (5) Hypoxia Status: Acute (6) Lactic acidosis Status: Acute (7) PNA (pneumonia) Status: Acute (8) Respiratory failure Status: Acute (9) Severe anemia Status: Acute (10) Sinusitis Status: Acute (11) Skin lesion of scalp Status: Acute (12) Vertigo Status: Acute (13) Weakness Status: Acute Review of Systems ROS otherwise unobtainable except for as above Objective Vital Signs Date Time Temp Pulse Resp B/P (MAP) Pulse Ox O2 Delivery O2 Flow Rate FiO2 03/17/17 15:21 90 24 96 Nasal Cannula 2.0 03/17/17 15:05 37.1 90 18 162/93 (116) 92 Room Air 03/17/17 13:37 70 24 98 Nasal Cannula 2.0 03/17/17 12:00 Nasal Cannula 3.0 03/17/17 12:00 83 03/17/17 11:29 36.9 83 24 144/87 (106) 98 Nasal Cannula 2.0 03/17/17 11:17 79 20 97 Nasal Cannula 3.0 03/17/17 08:00 Nasal Cannula 3.0 03/17/17 07:01 69 20 98 Nasal Cannula 3.0 03/17/17 07:00 36.4 86 22 150/96 (114) 97 Nasal Cannula 3.0 03/17/17 06:13 93 139/80 03/17/17 04:00 98 Nasal Cannula 3.0 03/17/17 04:00 36.8 79 22 112/77 (89) 98 Nasal Cannula 3.0 03/17/17 00:00 97 Nasal Cannula 4.0 03/16/17 23:52 77 167/84 03/16/17 23:28 83 20 98 Nasal Cannula 4.0 03/16/17 23:15 37.0 77 22 167/84 (111) 97 Nasal Cannula 4.0 03/16/17 20:01 Nasal Cannula 4.0 03/16/17 19:01 80 176/103 03/16/17 18:56 97 20 96 Nasal Cannula 4.0 Physical Exam General Appearance: no apparent distress Eyes: EOMI ENT: hearing grossly normal Neck: trachea midline Respiratory/Chest: no respiratory distress, no accessory muscle use, + pertinent finding (ongoing improvement in air entry bibasilar, no wheeze, faint scattered rhonchi) Extremities: normal range of motion Neurologic/Psychiatric: 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 tested, alert, + disoriented ( improving orientation) Skin: normal color, warm/dry Laboratory Results Last 24 Hours Test 03/16/17 19:35 03/16/17 22:06 03/16/17 23:10 03/17/17 07:16 Arterial Blood pH 7.49 Arterial Blood Partial Pressure CO2 29 mmHg Arterial Blood Partial Pressure O2 147 mm/Hg Arterial Blood HCO3 22 mmol/L Arterial Blood Oxygen Saturation 99.2 % Arterial Blood Base Excess -0.8 mEq/L Arterial Blood Gas Delivery 6L Maximiliano Test POS Sodium Level 135 mmol/L 135 mmol/L Potassium Level 3.3 mmol/L 3.5 mmol/L Chloride Level 101 mmol/L 100 mmol/L Carbon Dioxide Level 24 mmol/L 26 mmol/L Anion Gap 10.0 mmol/L 9.0 mmol/L Blood Urea Nitrogen 8 mg/dl 11 mg/dl Creatinine 0.62 mg/dl 0.74 mg/dl Est Creatinine Clear Calc Drug Dose 91.1 ml/min 76.3 ml/min Estimated GFR () 104.1 96.8 Estimated GFR (Non- 89.8 83.5 BUN/Creatinine Ratio 13.5 15.4 Random Glucose 129 mg/dl 131 mg/dl Calcium Level 8.8 mg/dl 8.8 mg/dl Magnesium Level 1.9 mg/dl 1.9 mg/dl Urine Color YELLOW Urine Appearance CLEAR Urine pH 6.0 Urine Specific [place] 1.018 Urine Protein 2+ Urine Glucose (UA) NEG Urine Ketones TRACE Urine Occult Blood 2+ Urine Nitrite NEG Urine Bilirubin NEG Urine Urobilinogen NEG Urine Leukocyte Esterase SMALL Urine WBC (Auto) 5-10 /hpf Urine RBC (Auto) >30 /hpf Urine Hyaline Casts (Auto) 1-5 /lpf Urine Epithelial Cells (Auto) 10-20 /lpf Urine Bacteria (Auto) 1+ Urine Pathogenic Casts /lpf White Blood Count 5.97 K/uL Red Blood Count 3.73 M/uL Hemoglobin 11.3 g/dL Hematocrit 33.9 % Mean Corpuscular Volume 90.9 fL Mean Corpuscular Hemoglobin 30.3 pg Mean Corpuscular Hemoglobin Concent 33.3 g/dl Platelet Count 179 K/uL Mean Platelet Volume 9.3 fL Neutrophils (%) (Auto) 76.0 % Lymphocytes (%) (Auto) 8.4 % Monocytes (%) (Auto) 14.6 % Eosinophils (%) (Auto) 0.5 % Basophils (%) (Auto) 0.2 % Neutrophils # (Auto) 4.54 K/uL Lymphocytes # (Auto) 0.50 K/uL Monocytes # (Auto) 0.87 K/uL Eosinophils # (Auto) 0.03 K/uL Basophils # (Auto) 0.01 K/uL RDW Standard Deviation 49.3 fL RDW Coefficient of Variation 14.8 % Immature Granulocyte % (Auto) 0.3 % Immature Granulocyte # (Auto) 0.02 K/uL Phosphorus Level 3.1 mg/dl Triglycerides Level 68 mg/dl Vancomycin Level Trough 14.0 mcg/ml Test 03/17/17 11:58 Bedside Glucose 155 mg/dl Assessment and Plan altered mental status -appearing to be septic/metabolic encephalopathy - improving -strongly suspect pneumonia as culprit, with hyponatremia contributing. with change in pattern today --> suspect it is because he is oxygenating better/ pneumonia improving and therefore he's feeling more able to move but still confused, but will rescreen for any new/potential worsening reasons (no further ativan, Na is now normal, repeat CXR, check UA and Cx, continue to follow serial exams) -on encephalopathy coverage per ID. end of day 5/7 today MRI negative. current clinical picture favors encephalopathy over encephalitis but appreciate ongoing ID input -haldol IM prn severe agitation pneumonia w acute hypoxic respiratory failure -dtr notes he gets respiratory illnesses every fall - raising suspicion of baseline allergic or pulmonary diseases; however, aspiration appears dominant piece of picture -for now continue zosyn and vanco - clearly improving -continue nebs/pulmonary toilet - sputum productive again -continue supportive care dysphagia/aspiration due to zenkers diverticula -GI consult appreciated, awaiting word on timing for transfer to [facility], although suspect next week -TPN prolonged poor PO intake/acute protein-calorie malnutrition -unable to easily pass NGT, and since this was not able to be done easily GI notes repeat efforts would possibly be harmful, therefore on TPN. tolerating well. no signs of refeeding hyponatremia -likely relates to acute illness, continue to follow; did have mild hyponatremia (132) late december - so possibly some baseline of siadh. 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 likely due to combined physiologic and neurologic stressors from all of above afib -rate controlled. currently can't take xarelto - on hold. is on DVT proph lovenox dosing for now, can increase if it's clear no procedures (EGD, IV access ) will be needed -- of note, lovenox can be held for procedures when necessary DVT proph - lovenox (resume full anticoag for afib once clearly safe to do so) mild troponin elevation -demand ischemia. follow clinically hypertension -home meds on hold while NPO. 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 outpt f/u Code status: do not resuscitate
--- NOTE | 2017-03-17 17:48 | Infectious Disease Progress Nt ---
Progress Note Date of Service Mar 17, 2017. Subjective Pt evaluation today including: conversation w/ patient, physical exam, chart review, lab review, review of studies, conversation w/ it web development consultant, review of inpatient medication list Patient appears to be making slow improvement. Somewhat less confused, appears comfortable and in no acute distress. Remains afebrile. All Other Systems: Reviewed and Negative Medications Current Inpatient Medications Medications (Trade) Dose Ordered Sig/Tanesha Route Start Time Stop Time Status Last Admin Dose Admin Acetaminophen (Tylenol Tab) 650 mg Q4H PRN PO 03/11/17 16:45 04/10/17 16:44 Ondansetron HCl (Zofran Inj) 4 mg Q6H PRN IV 03/11/17 16:45 04/10/17 16:44 Atorvastatin Calcium (Lipitor Tab) 40 mg QPM PO 03/11/17 21:00 04/10/17 20:59 Cetirizine HCl (zyrTEC TAB) 10 mg QPM PO 03/11/17 21:00 04/10/17 20:59 Docusate Sodium (coLACE CAP) 100 mg BID PO 03/11/17 21:00 04/10/17 20:59 Finasteride (Proscar Tab) 5 mg QPM PO 03/11/17 21:00 04/10/17 20:59 Lisinopril (Zestril Tab) 2.5 mg QAM PO 03/12/17 09:00 04/11/17 08:59 Future Hold Pantoprazole Sodium (Protonix Tab) 40 mg BID PO 03/11/17 21:00 04/10/17 20:59 Ferrous Sulfate (Feosol Tab) 325 mg BID PO 03/11/17 21:00 04/10/17 20:59 Levetiracetam 500 mg/Dextrose 105 ml @ 420 mls/hr Q12@0600,1800 IV 03/12/17 06:00 04/11/17 05:59 03/17/17 17:19 420 MLS/HR Vancomycin HCl (Consult) 1 ea UD PRN N/A 03/11/17 18:45 04/10/17 18:44 Piperacillin Sod/ Tazobactam Sod 3.375 gm/Dextrose 115 ml @ 28.75 mls/ hr Q8H IV 03/12/17 20:00 03/19/17 19:59 03/17/17 11:55 28.75 MLS/HR Acyclovir Sodium 800 mg/Dextrose 266 ml @ 265 mls/hr Q8H IV 03/12/17 19:00 03/22/17 17:44 03/17/17 10:52 265 MLS/HR Hydralazine HCl (HydrALAZINE INJ) 10 mg Q6 PRN IV. 03/13/17 09:15 04/12/17 09:14 03/14/17 02:56 10 MG Albuterol/ Ipratropium (Duoneb) 3 ml Q4R INH 03/13/17 12:00 04/12/17 11:59 03/17/17 15:21 3 ML Albuterol Sulfate (Ventolin 0.083% 2.5MG/3ML Neb) 2.5 mg Q2R PRN INH 03/13/17 10:45 04/12/17 10:44 03/17/17 13:37 2.5 MG Metoprolol Succinate (Toprol Xl Tab) 25 mg BID PO 03/13/17 14:15 04/10/17 20:59 Future Hold Enoxaparin Sodium (Lovenox Inj) 40 mg QAM SQ 03/14/17 09:00 04/13/17 08:59 03/17/17 10:27 40 MG Metoprolol Tartrate (Lopressor Iv) 2.5 mg Q6 IV. 03/14/17 12:00 04/13/17 11:59 03/17/17 12:00 2.5 MG Miscellaneous Information (Pharmacy Tpn/ Ppn Consult Active) 1 ea UD PRN N/A 03/15/17 17:45 04/14/17 17:44 Dextrose 1,000 ml @ 0 mls/hr Q0M PRN IV 03/16/17 16:00 04/15/17 15:59 Enalaprilat 2.5 mg/Dextrose 27 ml @ 100 mls/hr QID IV 03/16/17 21:00 04/15/17 20:59 03/17/17 16:13 100 MLS/HR Haloperidol Lactate (Haldol Inj) 2.5 mg Q6 PRN IM 03/16/17 18:30 04/15/17 13:44 Vancomycin HCl 1250 mg/Sodium Chloride 275 ml @ 125 mls/hr Q12H IV 03/17/17 22:00 03/18/17 23:59 Nutrition (Parenteral) 0 ml @ 0 mls/hr TODAY@1600 IV 03/17/17 16:00 03/18/17 15:59 03/17/17 16:13 0 MLS/HR Objective Vital Signs Date Time Temp Pulse Resp B/P (MAP) Pulse Ox O2 Delivery O2 Flow Rate FiO2 03/17/17 15:21 90 24 96 Nasal Cannula 2.0 03/17/17 15:05 37.1 90 18 162/93 (116) 92 Room Air 03/17/17 13:37 70 24 98 Nasal Cannula 2.0 03/17/17 12:00 Nasal Cannula 3.0 03/17/17 12:00 83 03/17/17 11:29 36.9 83 24 144/87 (106) 98 Nasal Cannula 2.0 03/17/17 11:17 79 20 97 Nasal Cannula 3.0 03/17/17 08:00 Nasal Cannula 3.0 03/17/17 07:01 69 20 98 Nasal Cannula 3.0 03/17/17 07:00 36.4 86 22 150/96 (114) 97 Nasal Cannula 3.0 03/17/17 06:13 93 139/80 03/17/17 04:00 98 Nasal Cannula 3.0 03/17/17 04:00 36.8 79 22 112/77 (89) 98 Nasal Cannula 3.0 03/17/17 00:00 97 Nasal Cannula 4.0 03/16/17 23:52 77 167/84 03/16/17 23:28 83 20 98 Nasal Cannula 4.0 03/16/17 23:15 37.0 77 22 167/84 (111) 97 Nasal Cannula 4.0 03/16/17 20:01 Nasal Cannula 4.0 03/16/17 19:01 80 176/103 03/16/17 18:56 97 20 96 Nasal Cannula 4.0 Physical Exam General Appearance: WD/WN, no apparent distress Eyes: normal inspection, EOMI, sclerae normal ENT: normal ENT inspection, pharynx normal Neck: supple, no adenopathy, trachea midline Respiratory/Chest: chest non-tender, lungs clear, normal breath sounds, no respiratory distress Cardiovascular: regular rate, rhythm, no gallop, no murmur Abdomen: normal bowel sounds, non tender, soft, no organomegaly Extremities: non-tender, no calf tenderness Neurologic/Psychiatric: alert, + disoriented Skin: normal color, no rash Lymphatic: no adenopathy Laboratory Results Last 24 Hours Test 03/16/17 19:35 03/16/17 22:06 03/16/17 23:10 03/17/17 07:16 Arterial Blood pH 7.49 Arterial Blood Partial Pressure CO2 29 mmHg Arterial Blood Partial Pressure O2 147 mm/Hg Arterial Blood HCO3 22 mmol/L Arterial Blood Oxygen Saturation 99.2 % Arterial Blood Base Excess -0.8 mEq/L Arterial Blood Gas Delivery 6L Maximiliano Test POS Sodium Level 135 mmol/L 135 mmol/L Potassium Level 3.3 mmol/L 3.5 mmol/L Chloride Level 101 mmol/L 100 mmol/L Carbon Dioxide Level 24 mmol/L 26 mmol/L Anion Gap 10.0 mmol/L 9.0 mmol/L Blood Urea Nitrogen 8 mg/dl 11 mg/dl Creatinine 0.62 mg/dl 0.74 mg/dl Est Creatinine Clear Calc Drug Dose 91.1 ml/min 76.3 ml/min Estimated GFR () 104.1 96.8 Estimated GFR (Non- 89.8 83.5 BUN/Creatinine Ratio 13.5 15.4 Random Glucose 129 mg/dl 131 mg/dl Calcium Level 8.8 mg/dl 8.8 mg/dl Magnesium Level 1.9 mg/dl 1.9 mg/dl Urine Color YELLOW Urine Appearance CLEAR Urine pH 6.0 Urine Specific [place] 1.018 Urine Protein 2+ Urine Glucose (UA) NEG Urine Ketones TRACE Urine Occult Blood 2+ Urine Nitrite NEG Urine Bilirubin NEG Urine Urobilinogen NEG Urine Leukocyte Esterase SMALL Urine WBC (Auto) 5-10 /hpf Urine RBC (Auto) >30 /hpf Urine Hyaline Casts (Auto) 1-5 /lpf Urine Epithelial Cells (Auto) 10-20 /lpf Urine Bacteria (Auto) 1+ Urine Pathogenic Casts /lpf White Blood Count 5.97 K/uL Red Blood Count 3.73 M/uL Hemoglobin 11.3 g/dL Hematocrit 33.9 % Mean Corpuscular Volume 90.9 fL Mean Corpuscular Hemoglobin 30.3 pg Mean Corpuscular Hemoglobin Concent 33.3 g/dl Platelet Count 179 K/uL Mean Platelet Volume 9.3 fL Neutrophils (%) (Auto) 76.0 % Lymphocytes (%) (Auto) 8.4 % Monocytes (%) (Auto) 14.6 % Eosinophils (%) (Auto) 0.5 % Basophils (%) (Auto) 0.2 % Neutrophils # (Auto) 4.54 K/uL Lymphocytes # (Auto) 0.50 K/uL Monocytes # (Auto) 0.87 K/uL Eosinophils # (Auto) 0.03 K/uL Basophils # (Auto) 0.01 K/uL RDW Standard Deviation 49.3 fL RDW Coefficient of Variation 14.8 % Immature Granulocyte % (Auto) 0.3 % Immature Granulocyte # (Auto) 0.02 K/uL Phosphorus Level 3.1 mg/dl Triglycerides Level 68 mg/dl Vancomycin Level Trough 14.0 mcg/ml Test 03/17/17 11:58 Bedside Glucose 155 mg/dl Assessment and Plan acute encephalopathy with seizures following what appeared to be respiratory tract infection and possible pulmonary infection. Patient to be continued on acyclovir for 7 days total. Will discuss with all involved.
[2017-03-17] MEDS: ATORVASTATIN 20 MG TAB PO SCH (20:25)
[2017-03-17] MEDS: FINASTERIDE 5 MG TAB PO SCH (20:25)
[2017-03-17] MEDS: CETIRIZINE HCL 10 MG TAB PO SCH (20:25)
[2017-03-18] VITALS (19 sets, daily range): BP systolic 109–165; BP diastolic 66–116; PULSE 68–96; TEMP 36.1–36.9; O2SAT 94–100
[2017-03-18] MEDS: METOPROLOL TARTRATE 1 MG/ML VIAL IV. SCH ×4 (00:02→17:40)
[2017-03-18] MEDS ORDERED: MoRPHine SULFATE 2 MG/ML CARP IV STA (01:01)
[2017-03-18] MEDS: ACYCLOVIR SOD INJ 800 MG in DEXTROSE 5% 250ML 250 ML IV SCH ×3 (02:48→19:51)
--- NOTE | 2017-03-18 02:51 | GASTROENTEROLOGY PROGRESS NOTE ---
DATE: 03/17/2017 SUBJECTIVE: The patient was seen today, chart was reviewed. The patient was somewhat difficult to arouse, although he eventually did awaken. The patient is n.p.o. 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 This is a chronic process for patient. The patient currently upon awakening does not report any active symptoms as for as throat pain, chest pain, shortness of breath, palpitations, abdominal pain, nausea or vomiting. MEDICATIONS: Include vancomycin IV, enalaprilat, haloperidol, Lopressor, Lovenox, DVT prophylaxis, inhalers, albuterol, hydralazine, Zosyn, acyclovir, atorvastatin, Zyrtec, Colace, Proscar, pantoprazole, ferrous sulfate. LABORATORY STUDIES: Today show white count of 5.97, hemoglobin 11.3, platelets 179,000. Negative for influenza type A and B. His serum chemistries this morning; BUN and creatinine are 11 and 0.74, random glucose 131, triglycerides 68. REVIEW OF SYSTEMS: Otherwise noncontributory based on 13-point exam.. PHYSICAL EXAMINATION: GENERAL: The patient is arousable. LUNGS: Sounds are coarse, and suspected of tracheal in origin, although there are decreased breath sounds and crackles in both lung muhammad posteriorly. HEART: Normal S1, S2. ABDOMEN: Soft, nontender, nondistended. Good bowel sounds. EXTREMITIES: Without clubbing, cyanosis or edema. RECTAL: Deferred. The patient had a CT of the head on 03/16/2017 and this revealed no acute intracranial pathology with chronic small vessel ischemic change. IMPRESSION: The patient with a Zenker diverticulum with difficulty swallowing. Apparent attempt of nasogastric feeding tube placement was made, but this was unsuccessful. The patient has aspiration pneumonia and is currently being treated. Once patient's respiratory status is completed, consideration for endoscopic myotomy of the Zenker diverticular region may be of benefit and this has been already discussed with gastrointestinal interventionalist at [place]. We will need to forward information including any imaging studies and their reports and we will work to have these available over the weekend for them to review. Anticipate that this may be several days until patient's pulmonary status is satisfactory to consider this procedure. In the meantime, we would keep patient n.p.o., TPN and current antibiotic therapies. Aspiration precautions should be maintained. MTDD
[2017-03-18] MEDS: ALBUT/IPRATROP 3MG/0.5MG NEB 3 ML VIAL INH SCH ×6 (03:32→23:21)
[2017-03-18] MEDS: PIPERACILL/TAZOBAC IV 3.375 GM in DEXTROSE 5% 100ML IV SCH ×3 (03:43→19:52)
[2017-03-18 05:24] LABS: BASO % 0.2 %; BASO ABS # 0.01 K/uL (0-0.2); COMPLETE YES; HEMATOCRIT 33.6 % (42-52); IG% 0.5 %; LYMPH % 6.5 %; LYMPH ABS # 0.38 K/uL (1.2-3.4); MEAN CELL VOLUME 91.3 fL (80-100); MEAN CORPUSCULAR HEMOGLOBIN 30.4 pg (25-34); MEAN CORPUSCULAR HGB CONC 33.3 g/dl (32-36); MEAN PLATELET VOLUME 9.4 fL (7.4-10.4); MONO % 14.9 %; NEUT % 77.9 %; PLATELET COUNT 187 K/uL (130-400); RED BLOOD COUNT 3.68 M/uL (4.7-6.1); WHITE BLOOD COUNT 5.82 K/uL (4.8-10.8)
[2017-03-18] MEDS: LEVETIRACETAM IV 500 MG in DEXTROSE 5% 100ML 100 ML IV SCH ×2 (05:45→17:39)
[2017-03-18 06:05] LABS: BUN/CREATININE RATIO 25.1 (10-20); CALCIUM 8.2 mg/dl (8.5-10.1); CREATININE 0.78 mg/dl (0.60-1.40); MAGNESIUM 1.9 mg/dl (1.8-2.4); PHOSPHORUS 3.1 mg/dl (2.5-4.9); POTASSIUM 3.7 mmol/L (3.5-5.1)
[2017-03-18] MEDS: ENALAPRILAT IV 2.5 MG in DEXTROSE 5% 25ML 25 ML IV SCH ×4 (07:41→22:07)
[2017-03-18] MEDS: FERROUS SULFATE 325 MG TAB PO SCH ×2 (07:48→21:00)
[2017-03-18] MEDS: ENOXAPARIN 40 MG/0.4 ML SYR SQ SCH (07:48)
[2017-03-18] MEDS: DOCUSATE SODIUM 100 MG CAP PO SCH ×2 (07:48→21:00)
[2017-03-18] MEDS: PANTOprazole SOD 40 MG TAB PO SCH ×2 (07:48→21:00)
[2017-03-18] MEDS: VANCOMYCIN INJ 1,250 MG in SODIUM CHLORIDE 0.9% 250ML 250 ML IV SCH ×2 (08:51→22:09)
[2017-03-18 10:42] LABS: ARTERIAL BLD GAS O2 SATURATION 97.5 % (90-95); ARTERIAL BLOOD GAS BASE EXCESS -1.5 mEq/L (-9-1.8); ARTERIAL BLOOD GAS HCO3 21 mmol/L (19-24); ARTERIAL BLOOD GAS PO2 96 mm/Hg (80-95); ARTERIAL BLOOD GAS pH 7.47 (7.35-7.45)
[2017-03-18 10:43] LABS: ALLEN TEST POS (POS); O2 ADMINISTRATION 4 L
[2017-03-18] MEDS: HydrALAZINE HCL 20 MG/ML VIAL IV. PRN (10:51)
--- NOTE | 2017-03-18 13:59 | GASTROENTEROLOGY PROGRESS NOTE ---
DATE: 03/18/2017 DATE: 03/18/2017 SUBJECTIVE: The patient was examined, chart reviewed. The patient's family was present today at the bedside. Again, the patient is somewhat difficult to arouse but with gentle shaking, the patient actually becomes far more awake and alert. He is resting comfortably in bed, although does have course breath sounds that are audible without auscultation and is being treated for aspiration pneumonia. The patient offers no complaints, reports that he is breathing well and has no abdominal pain. VITAL SIGNS: His vital signs this morning show blood pressure 165/114, 97% on 1 liter, heart rate 80, temperature 36.4, respirations 22. LABORATORY STUDIES: Today white count 5.8, hemoglobin 11.2, platelets 187,000. BUN and creatinine are 20 and 0.8 with blood sugar 162. Phosphorus and magnesium levels are normal. REVIEW OF SYSTEMS: Otherwise noncontributory based on 13-point exam. CURRENT MEDICATIONS: Include heparin per flush, vancomycin IV q. 12, IV enalaprilat, haloperidol, metoprolol, Lovenox DVT, Zosyn, pantoprazole, ferrous sulfate, finasteride. PHYSICAL EXAMINATION: GENERAL: The patient is arousable, awake, and alert. LUNGS: Again, course breath sounds with tracheal sounds as well. There is no stridor or wheezing. Lower lung exams are limited with decreased breath sounds. HEART: Normal S1, S2. ABDOMEN: Soft, flat, nontender, nondistended with good bowel sounds. EXTREMITIES: Without clubbing, cyanosis or edema. HEAD, EYES, EARS, NOSE, AND THROAT: Sclerae are anicteric, conjunctivae is moist. RECTAL EXAMINATION: Deferred. I spoke with the patient and his family at length today including daughter on the phone. The patient had an upper endoscopy performed over the past 18 months to 2 years for which dilation was performed; however the benefit was a limited. During this hospitalization, the patient had a video swallow that did provide evidence for aspiration and penetration. The patient has not had a recent upper endoscopy. I spoke to the family regarding the anticipated procedure that may help eliminate the dysphagia and aspiration effects of the Zenker's. This would be performed at [place] if felt to be a candidate and over the weekend will work to provide information to Dr. Antonino Senior at [place] for his review. This would be once the patient's respiratory status is optimized and the pneumonia is successfully treated and resolving. There was an upper endoscopy performed in September [address] Jefferson for which the patient underwent dilation of a Schatzki ring from 15-20 mm balloon size used along with a tortuous esophagus. The video swallow performed from November 2015 revealed silent aspiration, evidence of prominent Zenker's diverticulum with esophageal dysmotility. At some point, it may be reasonable prior to endoscopic intervention to consider a repeat barium esophagram with a barium tablet or water soluble contrast medium to see if there is a persistence of the esophageal dysmotility. There is a description that there is interesophageal reflux of material leading to aspiration and penetration but suggests that this is occurring below the level of the Zenker's. Ultimately a esophageal manometry may be helpful to exclude additional pathology in the esophagus by way of achalasia in the lower esophageal sphincter. This manometry would need to be performed at [place]. In the meantime, we will continue to aggressively treat the patient's respiratory infection with chest PT and nebulizer treatments, antibiotic coverage and continued TPN. All questions answered.
[2017-03-18] MEDS ORDERED: CUSTOM CENTRAL PN 1 BAG IV SCH (16:00)
[2017-03-18] MEDS ORDERED: PIPERACILL/TAZOBAC CONSULT ACTIVE PRN (16:45)
[2017-03-18] MEDS: ALBUTEROL 0.083% NEBU SOLN 3 ML VIAL INH PRN (17:10)
--- NOTE | 2017-03-18 18:21 | Progress Note ---
Subjective Date of Service: Mar 18, 2017. Subjective Pt evaluation today including: conversation w/ patient, conversation w/ family , physical exam, chart review, lab review, review of inpatient medication list having luis antony respirations a little more again today, otherwise no new problems a little more confused but no sob. notes that he had a bad night and is tired. ROS otherwise unobtainable except for as above family updated extensively and they continue to be well pleased with care GI input reviewed and appreciated - agree w transfer to [place] for more definitive care on esophageal issues once stable (hopefully early this coming week) Problem List Medical Problems: (1) Altered mental status Status: Acute (2) Bleeding internal hemorrhoids Status: Acute (3) Constipation Status: Acute (4) Epistaxis Status: Acute (5) Hypoxia Status: Acute (6) Lactic acidosis Status: Acute (7) PNA (pneumonia) Status: Acute (8) Respiratory failure Status: Acute (9) Severe anemia Status: Acute (10) Sinusitis Status: Acute (11) Skin lesion of scalp Status: Acute (12) Vertigo Status: Acute (13) Weakness Status: Acute Review of Systems ROS otherwise unobtainable except for as above Objective Vital Signs Date Time Temp Pulse Resp B/P (MAP) Pulse Ox O2 Delivery O2 Flow Rate FiO2 03/18/17 17:40 78 154/92 03/18/17 17:10 78 24 98 Nasal Cannula 4.0 03/18/17 16:50 36.9 78 18 154/92 (112) 97 Nasal Cannula 4.0 03/18/17 15:04 36.6 68 28 109/66 (80) 100 Nasal Cannula 4.0 03/18/17 14:20 91 30 94 Nasal Cannula 4.0 03/18/17 12:00 Nasal Cannula 3.0 03/18/17 11:30 130/70 (90) 03/18/17 11:28 83 03/18/17 11:20 81 30 95 Nasal Cannula 4.0 03/18/17 10:50 36.4 96 22 154/116 (129) 98 4.0 03/18/17 08:00 Nasal Cannula 3.0 03/18/17 07:11 36.4 80 22 165/114 (131) 97 1.0 03/18/17 07:01 85 30 97 Nasal Cannula 2.0 03/18/17 05:45 94 159/95 03/18/17 04:13 96 Nasal Cannula 3.0 03/18/17 03:51 36.4 89 28 159/105 (123) 94 Nasal Cannula 2.0 03/18/17 03:34 81 20 96 Nasal Cannula 2.0 03/18/17 00:02 80 149/90 03/18/17 00:00 96 Nasal Cannula 3.0 03/17/17 23:45 36.8 80 28 149/90 (109) 95 Nasal Cannula 2.0 03/17/17 23:03 87 24 98 Nasal Cannula 2.0 03/17/17 20:17 83 21 138/97 (111) 96 03/17/17 20:00 95 Nasal Cannula 3.0 03/17/17 19:45 95 22 93 Nasal Cannula 2.0 03/17/17 19:10 36.4 114 22 179/129 (146) 94 Nasal Cannula 3.0 Physical Exam General Appearance: no apparent distress Eyes: EOMI ENT: hearing grossly normal Neck: trachea midline Respiratory/Chest: no respiratory distress, no accessory muscle use, + decreased breath sounds (faintly decreased base R worse than L, but improving rhonchi no rales no wheeze no accessory muscles good effort - is following luis antony pattern again) Cardiovascular: regular rate, rhythm Abdomen: non tender, soft Extremities: normal range of motion, no pedal edema, no calf tenderness Neurologic/Psychiatric: lambskin trimmer II-XII nml as tested, alert Skin: normal color, warm/dry Laboratory Results Last 24 Hours Test 03/17/17 21:21 03/18/17 00:48 03/18/17 04:57 03/18/17 06:10 Bedside Glucose 130 mg/dl 141 mg/dl 162 mg/dl White Blood Count 5.82 K/uL Red Blood Count 3.68 M/uL Hemoglobin 11.2 g/dL Hematocrit 33.6 % Mean Corpuscular Volume 91.3 fL Mean Corpuscular Hemoglobin 30.4 pg Mean Corpuscular Hemoglobin Concent 33.3 g/dl Platelet Count 187 K/uL Mean Platelet Volume 9.4 fL Neutrophils (%) (Auto) 77.9 % Lymphocytes (%) (Auto) 6.5 % Monocytes (%) (Auto) 14.9 % Eosinophils (%) (Auto) 0.0 % Basophils (%) (Auto) 0.2 % Neutrophils # (Auto) 4.53 K/uL Lymphocytes # (Auto) 0.38 K/uL Monocytes # (Auto) 0.87 K/uL Eosinophils # (Auto) 0.00 K/uL Basophils # (Auto) 0.01 K/uL RDW Standard Deviation 49.4 fL RDW Coefficient of Variation 14.8 % Immature Granulocyte % (Auto) 0.5 % Immature Granulocyte # (Auto) 0.03 K/uL Sodium Level 134 mmol/L Potassium Level 3.7 mmol/L Chloride Level 101 mmol/L Carbon Dioxide Level 25 mmol/L Anion Gap 8.0 mmol/L Blood Urea Nitrogen 20 mg/dl Creatinine 0.78 mg/dl Est Creatinine Clear Calc Drug Dose 72.4 ml/min Estimated GFR () 94.7 Estimated GFR (Non- 81.7 BUN/Creatinine Ratio 25.1 Random Glucose 130 mg/dl Calcium Level 8.2 mg/dl Phosphorus Level 3.1 mg/dl Magnesium Level 1.9 mg/dl Triglycerides Level 75 mg/dl Test 03/18/17 10:23 Arterial Blood pH 7.47 Arterial Blood Partial Pressure CO2 30 mmHg Arterial Blood Partial Pressure O2 96 mm/Hg Arterial Blood HCO3 21 mmol/L Arterial Blood Oxygen Saturation 97.5 % Arterial Blood Base Excess -1.5 mEq/L Arterial Blood Gas Delivery 4 L Maximiliano Test POS Assessment and Plan altered mental status -appearing to be septic/metabolic encephalopathy - improving overall -strongly suspect pneumonia as culprit, with hyponatremia contributing. with change in pattern today --> suspect it is because he is oxygenating better/ pneumonia improving and therefore he's feeling more able to move but still confused, but will rescreen for any new/potential worsening reasons (no further ativan, Na is now normal, repeat CXR, check UA and Cx, continue to follow serial exams) -on encephalopathy coverage per ID. end of day 6/7 today MRI negative. current clinical picture favors encephalopathy over encephalitis but appreciate ongoing ID input -haldol IM prn severe agitation sparingly pneumonia w acute hypoxic respiratory failure -dtr notes he gets respiratory illnesses every fall - raising suspicion of baseline allergic or pulmonary diseases; however, aspiration appears dominant piece of picture -for now continue ramya, gonzales vanco. probably 10 days zosyn -continue nebs/pulmonary toilet - sputum productive again -continue supportive care -anticipate stability for endoscopic procedures by next week dysphagia/aspiration due to zenkers diverticula and possibly esophageal dysmotility -GI consult appreciated, awaiting word on timing for transfer to [place], although suspect next week, medically appears will be stable by then -TPN prolonged poor PO intake/acute protein-calorie malnutrition -unable to easily pass NGT, and since this was not able to be done easily GI notes repeat efforts would possibly be harmful, therefore on TPN. tolerating well. no signs of refeeding hyponatremia -likely relates to acute illness, continue to follow; did have mild hyponatremia (132) late december - so possibly some baseline of siadh. 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 likely due to combined physiologic and neurologic stressors from all of above afib -rate controlled. currently can't take xarelto - on hold. is on DVT proph lovenox dosing for now, can increase if it's clear no procedures (EGD, IV access ) will be needed -- of note, lovenox can be held for procedures when necessary DVT proph - lovenox (resume full anticoag for afib once clearly safe to do so) mild troponin elevation -demand ischemia. follow clinically hypertension -home meds on hold while NPO. 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 outpt f/u Code status: do not resuscitate
[2017-03-18] MEDS: FINASTERIDE 5 MG TAB PO SCH (21:00)
[2017-03-18] MEDS: CETIRIZINE HCL 10 MG TAB PO SCH (21:00)
[2017-03-18] MEDS: ATORVASTATIN 20 MG TAB PO SCH (21:00)
[2017-03-19] VITALS (15 sets, daily range): BP systolic 142–185; BP diastolic 82–99; PULSE 53–118; TEMP 36.4–36.6; O2SAT 89–100
[2017-03-19] MEDS: METOPROLOL TARTRATE 1 MG/ML VIAL IV. SCH ×5 (00:28→23:51)
[2017-03-19] MEDS: ACYCLOVIR SOD INJ 800 MG in DEXTROSE 5% 250ML 250 ML IV SCH ×3 (02:19→18:42)
[2017-03-19] MEDS: PIPERACILL/TAZOBAC IV 3.375 GM in DEXTROSE 5% 100ML IV SCH ×3 (03:27→20:34)
[2017-03-19] MEDS: ALBUT/IPRATROP 3MG/0.5MG NEB 3 ML VIAL INH SCH ×6 (03:31→23:08)
[2017-03-19 05:12] LABS: BASO % 0.2 %; BASO ABS # 0.01 K/uL (0-0.2); COMPLETE YES; EOS % 0.4 %; HEMATOCRIT 31.9 % (42-52); IG% 0.7 %; LYMPH % 5.8 %; LYMPH ABS # 0.33 K/uL (1.2-3.4); MEAN CELL VOLUME 91.1 fL (80-100); MEAN CORPUSCULAR HEMOGLOBIN 30.6 pg (25-34); MEAN CORPUSCULAR HGB CONC 33.5 g/dl (32-36); MEAN PLATELET VOLUME 9.2 fL (7.4-10.4); MONO % 16.3 %; NEUT % 76.6 %; PLATELET COUNT 173 K/uL (130-400); WHITE BLOOD COUNT 5.71 K/uL (4.8-10.8)
[2017-03-19] MEDS: LEVETIRACETAM IV 500 MG in DEXTROSE 5% 100ML 100 ML IV SCH ×2 (05:30→17:24)
[2017-03-19 05:46] LABS: BUN/CREATININE RATIO 38.4 (10-20); CALCIUM 8.5 mg/dl (8.5-10.1); CREATININE 0.74 mg/dl (0.60-1.40); MAGNESIUM 1.9 mg/dl (1.8-2.4); POTASSIUM 3.8 mmol/L (3.5-5.1)
[2017-03-19 05:47] LABS: PHOSPHORUS 3.3 mg/dl (2.5-4.9)
[2017-03-19] MEDS: DOCUSATE SODIUM 100 MG CAP PO SCH ×2 (07:24→20:43)
[2017-03-19] MEDS: PANTOprazole SOD 40 MG TAB PO SCH ×2 (07:24→20:43)
[2017-03-19] MEDS: FERROUS SULFATE 325 MG TAB PO SCH ×2 (07:24→20:43)
[2017-03-19] MEDS: ENALAPRILAT IV 2.5 MG in DEXTROSE 5% 25ML 25 ML IV SCH ×4 (08:38→20:34)
[2017-03-19] MEDS: ENOXAPARIN 40 MG/0.4 ML SYR SQ SCH (08:41)
--- NOTE | 2017-03-19 10:27 | DIAGNOSTIC IMAGING REPORT ---
CHEST ONE VIEW PORTABLE CLINICAL HISTORY: rhonchi, follow up on pneumonia, ?clearing dyspnea COMPARISON STUDY: 03/16/2017 FINDINGS: Poor study technically as the patient could not suspend respiration. Stable cardiomegaly. Stable components of congestive failure. Unchanging increased density left and to a lesser extent right base. IMPRESSION: Unchanged exam within limitations of patient respiratory motion. The above report was generated using voice recognition software. It may contain grammatical, syntax or spelling errors. Electronically signed by: Bereket Cho M.D. 03/19/2017 10:25 AM Dictated Date/Time: 03/19/2017 10:24 AM
[2017-03-19 10:52] LABS: URINE APPEARANCE CLEAR (CLEAR); URINE BILIRUBIN NEG (NEG); URINE COLOR DK YELLOW; URINE NITRITE NEG (NEG); URINE PH 5.5 (4.5-7.5); URINE SPECIFIC GRAVITY 1.028 (1.000-1.030); UROBILINOGEN NEG (NEG)
[2017-03-19 10:55] LABS: MANUAL MICROSCOPIC REQUIRED? NO; REVIEW REQ? NO
--- NOTE | 2017-03-19 15:16 | Progress Note ---
Subjective Date of Service: Mar 19, 2017. Subjective Pt evaluation today including: conversation w/ patient, conversation w/ family , physical exam, chart review, lab review, review of studies, review of inpatient medication list no meaningful HPI or ROS obtainable from pt today - he's a little more quiet and withdrawn in delirium - but does awaken and deny sob/pain/etc family notes that he sounds alittle more gurgly with respirations at times. answered all questions to the best of my ability and to their satisfaction. 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) and appears should be medically stable to do so, but family also notes that if ariadna does not feel he is stable for this at that time, they are reluctantly amenable to [facility] and then a[facility] once he's stronger Problem List Medical Problems: (1) Altered mental status Status: Acute (2) Bleeding internal hemorrhoids Status: Acute (3) Constipation Status: Acute (4) Epistaxis Status: Acute (5) Hypoxia Status: Acute (6) Lactic acidosis Status: Acute (7) PNA (pneumonia) Status: Acute (8) Respiratory failure Status: Acute (9) Severe anemia Status: Acute (10) Sinusitis Status: Acute (11) Skin lesion of scalp Status: Acute (12) Vertigo Status: Acute (13) Weakness Status: Acute Review of Systems ROS otherwise unobtainable except for as above Objective Vital Signs Date Time Temp Pulse Resp B/P (MAP) Pulse Ox O2 Delivery O2 Flow Rate FiO2 03/19/17 14:59 36.5 71 20 142/99 (113) 100 Nasal Cannula 4.0 03/19/17 12:00 Nasal Cannula 4.0 03/19/17 11:15 71 24 99 Nasal Cannula 4.0 03/19/17 11:08 36.4 68 22 185/98 (127) 97 Nasal Cannula 4.0 03/19/17 08:00 Nasal Cannula 4.0 03/19/17 07:31 36.5 118 24 148/96 (113) 89 Nasal Cannula 4.0 03/19/17 06:54 53 24 96 Nasal Cannula 4.0 03/19/17 05:30 86 155/99 03/19/17 04:19 98 Nasal Cannula 4.0 03/19/17 04:00 36.6 86 22 155/99 (117) 94 Nasal Cannula 4.0 03/19/17 03:31 79 24 92 Nasal Cannula 4.0 03/19/17 00:28 72 140/84 03/19/17 00:00 98 Nasal Cannula 4.0 03/18/17 23:21 72 24 98 Nasal Cannula 4.0 03/18/17 22:59 36.5 96 18 140/84 (102) 97 Nasal Cannula 4.0 03/18/17 20:00 98 Nasal Cannula 4.0 03/18/17 19:56 83 24 99 Nasal Cannula 4.0 03/18/17 19:02 36.1 72 20 133/95 (108) 97 Nasal Cannula 4.0 03/18/17 17:40 78 154/92 03/18/17 17:10 78 24 98 Nasal Cannula 4.0 03/18/17 16:50 36.9 78 18 154/92 (112) 97 Nasal Cannula 4.0 03/18/17 16:00 98 Nasal Cannula 4.0 Physical Exam General Appearance: no apparent distress Eyes: EOMI ENT: hearing grossly normal Neck: trachea midline Respiratory/Chest: no respiratory distress, no accessory muscle use, + rhonchi (R>L scattered rhonchi. no wheeze good effort, ongoing better air entry than earlier this week) Abdomen: non tender, soft Extremities: normal range of motion, no pedal edema, no calf tenderness Neurologic/Psychiatric: wood veneer taper II-XII nml as tested, alert, + disoriented Skin: normal color, warm/dry Laboratory Results Last 24 Hours Test 03/18/17 19:09 03/18/17 23:49 03/19/17 04:49 03/19/17 05:38 Bedside Glucose 127 mg/dl 134 mg/dl 123 mg/dl White Blood Count 5.71 K/uL Red Blood Count 3.50 M/uL Hemoglobin 10.7 g/dL Hematocrit 31.9 % Mean Corpuscular Volume 91.1 fL Mean Corpuscular Hemoglobin 30.6 pg Mean Corpuscular Hemoglobin Concent 33.5 g/dl Platelet Count 173 K/uL Mean Platelet Volume 9.2 fL Neutrophils (%) (Auto) 76.6 % Lymphocytes (%) (Auto) 5.8 % Monocytes (%) (Auto) 16.3 % Eosinophils (%) (Auto) 0.4 % Basophils (%) (Auto) 0.2 % Neutrophils # (Auto) 4.38 K/uL Lymphocytes # (Auto) 0.33 K/uL Monocytes # (Auto) 0.93 K/uL Eosinophils # (Auto) 0.02 K/uL Basophils # (Auto) 0.01 K/uL RDW Standard Deviation 49.4 fL RDW Coefficient of Variation 14.9 % Immature Granulocyte % (Auto) 0.7 % Immature Granulocyte # (Auto) 0.04 K/uL Sodium Level 134 mmol/L Potassium Level 3.8 mmol/L Chloride Level 101 mmol/L Carbon Dioxide Level 24 mmol/L Anion Gap 9.0 mmol/L Blood Urea Nitrogen 28 mg/dl Creatinine 0.74 mg/dl Est Creatinine Clear Calc Drug Dose 76.3 ml/min Estimated GFR () 96.8 Estimated GFR (Non- 83.5 BUN/Creatinine Ratio 38.4 Random Glucose 122 mg/dl Calcium Level 8.5 mg/dl Phosphorus Level 3.3 mg/dl Magnesium Level 1.9 mg/dl C-Reactive Protein 2.15 mg/dl Albumin 2.8 gm/dl Triglycerides Level 67 mg/dl Test 03/19/17 10:35 03/19/17 11:27 Urine Color DK YELLOW Urine Appearance CLEAR Urine pH 5.5 Urine Specific [place] 1.028 Urine Protein 2+ Urine Glucose (UA) NEG Urine Ketones NEG Urine Occult Blood 3+ Urine Nitrite NEG Urine Bilirubin NEG Urine Urobilinogen NEG Urine Leukocyte Esterase NEG Urine WBC (Auto) 1-5 /hpf Urine RBC (Auto) >30 /hpf Urine Hyaline Casts (Auto) 5-10 /lpf Urine Epithelial Cells (Auto) 10-20 /lpf Urine Bacteria (Auto) NEG Bedside Glucose 152 mg/dl Assessment and Plan altered mental status -appearing to be septic/metabolic encephalopathy - improving overall -strongly suspect pneumonia as culprit, with hyponatremia contributing. with change in pattern today --> suspect it is because he is oxygenating better/ pneumonia improving and therefore he's feeling more able to move but still confused, but will rescreen for any new/potential worsening reasons (no further ativan, Na is now normal, repeat CXR, check UA and Cx, continue to follow serial exams) -on encephalopathy coverage per ID. end of day 12/30 today. d/w pharmacy 03/18 - to dc acyclovir today. MRI negative. current clinical picture favors encephalopathy over encephalitis but appreciate ongoing ID input -haldol IM prn severe agitation sparingly -with change in mentation a bit today - re-evaluated w CXR (stable to clearing) , UA (hematuria but no clear signs infection), and CRP (down from previous, reassuring) in addition to the remainder of daily w/u pneumonia w acute hypoxic respiratory failure -dtr notes he gets respiratory illnesses every fall - raising suspicion of baseline allergic or pulmonary diseases; however, aspiration appears dominant piece of picture -for now continue zosyn (with ongoing improvement would look at 03/20 as likely last day for zosyn) stopped vanco 03/18. 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 see above - from medical team perspective optimal plan would be transfer to [place] this week for management of esophagus, but if [place] desires longer window of recovery, risks/benefits not dangerous on plan of SNF ( [facility]) w TPN and ongoing active f/u w [place] [facility] once able prolonged poor PO intake/acute protein-calorie malnutrition -unable to easily pass NGT, and since this was not able to be done easily GI notes repeat efforts would possibly be harmful, therefore on TPN. tolerating well. no signs of refeeding hyponatremia -likely relates to acute illness, continue to follow; did have mild hyponatremia (132) late december - so possibly some baseline of siadh. 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 likely due to combined physiologic and neurologic stressors from all of above; on empiric keppra - probably would continue through hospitalization and early part of recovery, then as he physiologically returns more to normal, unlikely to be needed past maybe intermediate-term use afib -rate controlled. currently can't take xarelto - on hold. is on DVT proph lovenox dosing for now, can increase if it's clear no procedures (EGD, IV access ) will be needed -- of note, lovenox can be held for procedures when necessary DVT proph - lovenox (resume full anticoag for afib once clearly safe to do so) mild troponin elevation -demand ischemia. follow clinically hypertension -home meds on hold while NPO. 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 outpt f/u Code status: do not resuscitate
--- NOTE | 2017-03-19 15:53 | GASTROENTEROLOGY PROGRESS NOTE ---
DATE: 03/19/2017 INPATIENT PROGRESS NOTE SUBJECTIVE: The patient is doing about the same as yesterday. Although the patient can gesture that he is aware, he nevertheless does not open his eyes immediately and it takes some work to communicate with him. The patient is accompanied by his family. He continues on antibiotics, breathing treatments and his other medications and is on TPN for nutrition support and is strict n.p.o. LABORATORY STUDIES: Today show white count 5.7, hemoglobin 10.7 and platelets 173,000. Serum chemistries show potassium 3.8, BUN and creatinine 28 and 0.7. Random sugars are 123 and 152 respectively. C-reactive protein is elevated at 2.15, albumin low at 2.8. IMAGING STUDIES: Chest x-ray today reveal an unchanged AP exam with limitations. There is unchanging density in the left and to a lesser extent at the right base. MEDICATIONS: Antibiotics include Zosyn, vancomycin has been discontinued. Heparin for flushing. YOLANDA inhibitor, enalaprilat, Haldol, Lopressor, Lovenox, DVT prophylaxis, hydralazine, acyclovir, atorvastatin, levetiracetam, Colace, Proscar, pantoprazole 40 mg b.i.d., ferrous sulfate twice daily. There are no reports of melena or bright red blood per rectum. PHYSICAL EXAMINATION: VITAL SIGNS: Today show blood pressure 185/98, respirations 22, pulse ox 68, 36.4 temperature. GENERAL: The patient is awake, alert and oriented x3. HEENT: Sclerae are anicteric. Conjunctivae are moist. Oral mucosa is parched. LUNGS: Exam shows coarse tracheal breath sounds with clearing of the throat. There are diminished breath sounds posteriorly and anteriorly, but this may be partly secondary to effort. ABDOMEN: Soft, nontender, nondistended with good bowel sounds. EXTREMITIES: Without edema. RECTAL: Deferred. IMPRESSION AND PLAN: The patient with aspiration pneumonia with high flow nebulizer therapy and antibiotic treatment. However, there are still some moderate tracheal sounds with coughing and clearing of the throat. At the present time, the patient's symptoms of dysphagia as a potential source for his aspiration pneumonia are secondary to his acute respiratory status and this will need to be optimized before additional workup and possible therapy is possible. Once the patient is stable, it may be reasonable for the patient to have a water soluble contrast swallow with a barium tablet to assess for any stricture and to grossly assess the patient's ability to clear the esophagus. A formal esophageal manometry testing may be necessary prior to consideration for myotomy for Zenker diverticulum. Exclusion of achalasia would also be necessary if an endoscopic myotomy is considered. Would consider chest PT in order to help clear his airways and optimize his respiratory status. We did briefly discuss the possibility that if the motility of the esophagus may not permit consistent oral intake for nourishment, then enteral feeds by way of PEG tube may be an option. Ideally post-pyloric feedings would limit the risk of aspiration, but efforts to swallow may hamper his resolution of aspiration. Further recommendations to follow. We will continue to follow with you. ZORA
[2017-03-19] MEDS ORDERED: CUSTOM CENTRAL PN 1 BAG IV SCH (16:00)
[2017-03-19] MEDS: FINASTERIDE 5 MG TAB PO SCH (20:43)
[2017-03-19] MEDS: ATORVASTATIN 20 MG TAB PO SCH (20:43)
[2017-03-19] MEDS: CETIRIZINE HCL 10 MG TAB PO SCH (20:43)
[2017-03-20] VITALS (16 sets, daily range): BP systolic 125–163; BP diastolic 84–101; PULSE 66–93; TEMP 36.1–36.9; O2SAT 94–100
[2017-03-20] MEDS: ALBUT/IPRATROP 3MG/0.5MG NEB 3 ML VIAL INH SCH ×6 (04:02→23:03)
[2017-03-20] MEDS: PIPERACILL/TAZOBAC IV 3.375 GM in DEXTROSE 5% 100ML IV SCH ×3 (04:04→19:37)
[2017-03-20 04:54] LABS: BASO % 0.2 %; BASO ABS # 0.01 K/uL (0-0.2); COMPLETE YES; EOS % 0.2 %; HEMATOCRIT 31.4 % (42-52); IG% 0.3 %; LYMPH % 7.7 %; LYMPH ABS # 0.45 K/uL (1.2-3.4); MEAN CELL VOLUME 90.5 fL (80-100); MEAN CORPUSCULAR HEMOGLOBIN 30.5 pg (25-34); MEAN CORPUSCULAR HGB CONC 33.8 g/dl (32-36); MEAN PLATELET VOLUME 9.5 fL (7.4-10.4); NEUT % 76.6 %; PLATELET COUNT 166 K/uL (130-400); RED BLOOD COUNT 3.47 M/uL (4.7-6.1); WHITE BLOOD COUNT 5.85 K/uL (4.8-10.8)
[2017-03-20] MEDS: LEVETIRACETAM IV 500 MG in DEXTROSE 5% 100ML 100 ML IV SCH ×2 (05:12→18:12)
[2017-03-20 05:15] LABS: BUN/CREATININE RATIO 46.4 (10-20); CALCIUM 8.4 mg/dl (8.5-10.1); CREATININE 0.74 mg/dl (0.60-1.40); PHOSPHORUS 2.9 mg/dl (2.5-4.9); POTASSIUM 4.2 mmol/L (3.5-5.1)
[2017-03-20] MEDS: METOPROLOL TARTRATE 1 MG/ML VIAL IV. SCH ×3 (05:54→18:12)
--- NOTE | 2017-03-20 05:58 | Progress Note ---
Progress Note Date of Service Mar 20, 2017. Progress Note paged by nursing notifying me of leaking at the central catheter site. I arrived at the bedside with the portable ultrasound probe. Central line appears to be within the left IJ. Attempts to flush each line showed leakage at the insertion site. Patient requires TPN currently. I have put orders to discontinue use of central line at this time until day team arrives. Consider replacing central line vs PICC line for the purposes of TPN
[2017-03-20] MEDS: PANTOprazole SOD 40 MG TAB PO SCH ×2 (08:10→21:00)
[2017-03-20] MEDS: DOCUSATE SODIUM 100 MG CAP PO SCH ×2 (08:10→21:00)
[2017-03-20] MEDS: FERROUS SULFATE 325 MG TAB PO SCH ×2 (08:10→21:00)
[2017-03-20] MEDS: ENALAPRILAT IV 2.5 MG in DEXTROSE 5% 25ML 25 ML IV SCH ×4 (08:14→23:43)
[2017-03-20] MEDS: ENOXAPARIN 40 MG/0.4 ML SYR SQ SCH (10:11)
--- NOTE | 2017-03-20 11:59 | Hospitalist Progress Note ---
Hospitalist Progress Note Date of Service Mar 20, 2017. (Mesha Montelongo ., PA-C) Subjective Pt evaluation today including: conversation w/ family, physical exam PO Intake: NPO, receiving TPN Voiding: galvez catheter in place Unable to obtain ROS from patient due to condition. Additional Comments: Unable to obtain ROS from patient due to condition. (Mesha Montelongo ., PA-C) Objective Vital Signs Date Time Temp Pulse Resp B/P (MAP) Pulse Ox O2 Delivery O2 Flow Rate FiO2 03/20/17 10:43 36.5 81 22 146/96 (113) 96 Nasal Cannula 4.0 03/20/17 08:00 Nasal Cannula 4.0 03/20/17 07:37 77 20 98 Nasal Cannula 4.0 03/20/17 07:00 36.1 73 22 163/101 (121) 96 Nasal Cannula 4.5 03/20/17 05:54 70 141/95 03/20/17 04:17 98 Nasal Cannula 4.0 03/20/17 04:02 70 20 97 Nasal Cannula 4.0 03/20/17 03:32 36.7 81 22 141/95 (110) 99 Nasal Cannula 4.0 03/20/17 00:00 98 Nasal Cannula 4.0 03/19/17 23:51 89 162/89 03/19/17 23:18 36.6 89 24 162/89 (113) 99 Nasal Cannula 4.0 03/19/17 23:08 84 22 100 Nasal Cannula 4.0 03/19/17 20:00 98 Nasal Cannula 4.0 03/19/17 19:00 77 20 98 Nasal Cannula 4.0 03/19/17 18:55 36.5 69 20 144/82 (102) 100 Nasal Cannula 4.0 03/19/17 16:00 Nasal Cannula 4.0 03/19/17 15:39 76 22 100 Nasal Cannula 4.0 03/19/17 14:59 36.5 71 20 142/99 (113) 100 Nasal Cannula 4.0 03/19/17 12:00 Nasal Cannula 4.0 (Mesha Montelongo ., PA-C) Physical Exam Notes: General appearance: +Appears chronically ill. Well-developed, well-nourished, no apparent distress Head: Normocephalic, atraumatic Eyes: +Exam limited by pt condition. ENT: +Dry oral mucosa with crusts. Exam limited by pt condition Neck: +R IJ central line in place. Supple, no JVD, trachea midline Respiratory/Chest: +Decreased breath sounds. Lungs clear to auscultation, no respiratory distress Cardiovascular: +Irregularly irregular. No gallop, no murmur Abdomen/GI: +Hypoactive bowel sounds. Non-tender, soft Extremities/Musculoskeletal: Normal inspection, no calf tenderness, no pedal edema Neurological/Psych: +Unresponsive. Unable to assess mood/orientation. Skin: Normal color, warm/dry, no rash (Mesha Montelongo, DU) Laboratory Results Last 24 Hours Test 03/19/17 18:53 03/20/17 00:46 03/20/17 04:36 03/20/17 06:36 Bedside Glucose 153 mg/dl 149 mg/dl 116 mg/dl White Blood Count 5.85 K/uL Red Blood Count 3.47 M/uL Hemoglobin 10.6 g/dL Hematocrit 31.4 % Mean Corpuscular Volume 90.5 fL Mean Corpuscular Hemoglobin 30.5 pg Mean Corpuscular Hemoglobin Concent 33.8 g/dl Platelet Count 166 K/uL Mean Platelet Volume 9.5 fL Neutrophils (%) (Auto) 76.6 % Lymphocytes (%) (Auto) 7.7 % Monocytes (%) (Auto) 15.0 % Eosinophils (%) (Auto) 0.2 % Basophils (%) (Auto) 0.2 % Neutrophils # (Auto) 4.48 K/uL Lymphocytes # (Auto) 0.45 K/uL Monocytes # (Auto) 0.88 K/uL Eosinophils # (Auto) 0.01 K/uL Basophils # (Auto) 0.01 K/uL RDW Standard Deviation 48.2 fL RDW Coefficient of Variation 14.8 % Immature Granulocyte % (Auto) 0.3 % Immature Granulocyte # (Auto) 0.02 K/uL Sodium Level 134 mmol/L Potassium Level 4.2 mmol/L Chloride Level 103 mmol/L Carbon Dioxide Level 25 mmol/L Anion Gap 6.0 mmol/L Blood Urea Nitrogen 34 mg/dl Creatinine 0.74 mg/dl Est Creatinine Clear Calc Drug Dose 76.3 ml/min Estimated GFR () 96.8 Estimated GFR (Non- 83.5 BUN/Creatinine Ratio 46.4 Random Glucose 120 mg/dl Calcium Level 8.4 mg/dl Phosphorus Level 2.9 mg/dl Magnesium Level 2.0 mg/dl Albumin 2.8 gm/dl Triglycerides Level 61 mg/dl (Mesha Montelongo ., DU) Assessment and Plan 86 y/o with a history of a-fib on chronic anticoagulation, HTN, HLD, and GERD who presents to the ED on 03/11 with altered mental status and weakness. Septic/metabolic encephalopathy--ongoing. Pt's level of alertness/ unresponsiveness has been the same last few days per family -Admit to telemetry. No acute events overnight. Pt in a-fib, HR 70s-80s -Multifactorial. PNA stable, hyponatremia stable. Check other reasons -Repeat CXR 03/19 unchanged -Repeat UA 03/19 negative -Unresponsive. Check ABG, ammonia, repeat CXR -On encephalopathy coverage per ID. Completed full course acyclovir. Completed 7 days vancomycin. Zosyn IV, day #9 -Brain MRI negative -Haldol IM prn severe agitation, use sparingly -CRP trending down Aspiration pneumonia w/acute hypoxic respiratory failure--stable -Daughter notes he gets respiratory illnesses every fall - raising suspicion of baseline allergic or pulmonary diseases; however, aspiration appears dominant piece of picture -Zosyn as above. Stopped vanco 03/18. 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 Formal esophageal manometry testing may be needed before consideration for myotomy for Zenker's diverticulum, as well as exclusion of achalasia. -Continue TPN -Central line leaking last night. Will reattempt PICC, if not will need to consult steeping press tender for new central line -Possible transfer to [facility] this week to manage Zenker's diverticulum, possible myotomy. 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 Likely due to combined physiologic and neurologic stressors from all of above -Empiric Keppra 500 mg IV BID. Continue through hospitalization and early part of recovery, possibly longer A-fib--stable, rate controlled -Xarelto held due to NPO status -Lovenox for now, can increase to therapeutic dosing when it's clear no more procedures will be done Hypertension--stable -Home meds on hold while NPO -Vasotec 2.5 mg IV QID, Lopressor 2.5 mg IV q6h -Cover with hydralazine 10 mg IV q6h prn SBP >180 Hyperlipidemia -Lipitor on hold while NPO 5 cm aneurysm -Prior hospitalist made family aware. Outpt f/u DVT prophylaxis -Enoxaparin 40 mg SC q24h, resume therapeutic anticoagulation when no more procedures Code Status -Level V, DO NOT RESUSCITATE (Mesha Montelongo, DU) Reviewed: Pt Seen/Exam by Me (Aneta Dela Cruz MD) History Physician Button Sewer Supervision Note: I interviewed and examined the patient. Discussed with BRET Montelongo and agree with findings and plan as documented in the note. Any exceptions or clarifications are listed here: Pt obtunded when I saw him today. RN called and said pt was tachypneic. When I arrived he was having Helio-Shrestha breathing which has been his pattern this admission as per turnover from my colleague who took care of him before me. He continued to do this. ABG revealed results consistent with hyperventilation. NH4 level slightly elevated. Pt has not had any po intake and no BM this entire admission. CVC was leaking last night when flushed and had to be pulled out today. I had a discussion with the daughter and son-in-law who wanted to talk things over with the other daughter and son who are HCPOAs before deciding whether to place another CVC or PICC for continued TPN. He continues to be encephalopathic for many days, but family at bedside think it has gotten worse the last 2-3 days. Family reiterates that pt is a DNR/DNI Tele reviewed, Vitals reviewed, I/O markedly net positive over admission lying in bed, obtunded, does not respond initially to loud verbal or to tactile stimulus including sternal rub, then later, he holds up an "ok" symbol with his left hand with eyes closed irreg irreg, 2/6 BRANDT at [facility] Lungs with coarse BS in upper airways, otherwise clear, is having Cheye-Shrestha breathing, periods of apnea for approximately 10-15 seconds Abd +BS, soft, NT ND Ext trace pitting edema Pt is an 86 yo male here with acute metabolic encephalopathy secondary to aspiration PNA, with Zenker's diverticulum. Remains on TPN although on hold currently for loss of CVC while family deciding about whether to continue TPN. PNA is being adequately treated for aspiration alone, as well as for HCAP as did receive 7 days of Vanco in addition to now 9 days of Zosyn. 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 and decreased collapsibility of IVC -added Vanco back on in case he worsened in mental status since stopping Vanco despite negative MRSA swab -CPAP for respiratory support while obtunded and having Cheye-Shrestha breathing is likely related to his PNA and encephalopathy (central process) -Appreciate Pulmonary input -diurese with IV lasix daily given markedly positive net balance of fluid and evidence of pulm edema on CXR, follow I/Os -NH4 elevated at 36--> Bisacodyl IL suppos to stimulate BMs despite NPO status, should still have some BMs -has already had multiple evaluations for his encephalopathy including EEG, CT head, brain MRI, no other source of infection found, hyponatremia improved--> if encephalopathy not improving, consider Palliative Care consult -family deciding about whether to place another PICC or CVC for continued TPN, will decide tomorrow -if encephalopathy improves, consider transfer to [facility] [facility] for procedure to correct Zenker's -Lovenox SQ for DVT proph, eventually may go back on Xarelto Documented By: Aneta Dela Cruz (Aneta Dela Cruz MD)
[2017-03-20] MEDS ORDERED: FUROSEMIDE INJ 20 MG in SYRINGE 0 ML IV ONE (13:30)
--- NOTE | 2017-03-20 13:47 | DIAGNOSTIC IMAGING REPORT ---
CHEST ONE VIEW PORTABLE CLINICAL HISTORY: tachypnea dyspnea COMPARISON STUDY: 03/19 2017 FINDINGS: Similar findings of cardiomegaly. Findings of congestive heart failure also unchanged. Possible small left effusion. IMPRESSION: Congestive failure unchanged radiographically from the prior exam. The above report was generated using voice recognition software. It may contain grammatical, syntax or spelling errors. Electronically signed by: Bereket Cho M.D. 03/20/2017 1:46 PM Dictated Date/Time: 03/20/2017 1:45 PM
[2017-03-20 13:54] LABS: ALLEN TEST POS (POS); ARTERIAL BLD GAS O2 SATURATION 98.9 % (90-95); ARTERIAL BLOOD GAS BASE EXCESS -1.2 mEq/L (-9-1.8); ARTERIAL BLOOD GAS HCO3 22 mmol/L (19-24); ARTERIAL BLOOD GAS PO2 128 mm/Hg (80-95); ARTERIAL BLOOD GAS pH 7.48 (7.35-7.45); O2 ADMINISTRATION 4 L
[2017-03-20] MEDS ORDERED: VANCOMYCIN INJ 2,000 MG in SODIUM CHLORIDE 0.9% 500ML 500 ML IV ONE (14:21)
[2017-03-20] MEDS ORDERED: CUSTOM CENTRAL PN 1 BAG IV SCH (16:00)
--- NOTE | 2017-03-20 16:35 | Pharmacy Progress Note ---
Pharmacy Abx Dose Short Note Date of Service Mar 20, 2017. Assessment & Plan Assessment 86 year old male receiving IV Zosyn and Vancomycin for treatment of pneumonia, worsening mental status * Previously complete 7 days of Vancomycin, now being restarted due to worsening mental status since Vancomycin was D/C'd * Based Vancomycin dosing on previous regimen from earlier this admission Plan Vancomycin * Give Vancomycin 2000mg (~22mg/kg) IV x 1 as loading dose * Initiate Vancomycin 1250mg (~14mg/kg) IV q12 as maintenance regimen * Goal trough level for pneumonia : 15 to 20 mcg/mL * Trough level ordered for: 03/22 @ 1330 (prior to 4th dose and therefore should be reflective of steady state) Pharmacy will continue to follow and will adjust dose/frequency as necessary. Thank you.
[2017-03-20] MEDS ORDERED: VANCOMYCIN CONSULT ACTIVE PRN (16:45)
--- NOTE | 2017-03-20 17:23 | Pulmonary Consultation ---
History General Date of Service: Mar 20, 2017. Stated Complaint: Altered Mental Status, Hypoxia HPI Patient is an 86 yo male patient who presented initially to the ED [facility] concerns of weakness, SOB, fatigue, and slightly altered mental status. History taken from previous records due to patient's current state. 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 Upon initial evaluation, the patient was found to be hypoxic with SaO2 of 84% on room air. He has been on OxyMask and nasal cannula since admission and has needed O2 supplementation. The patient does not typically require O2 supplementation at home. The patient had Chest CT completed which raised concern for possible PAWAN Pneumonia- possible aspiration. Video swallow confirmed aspiration. Patient is currently on IV Vancomycin and Zosyn- Day #8. Chest CT images were viewed and reviewed. 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 Following admission, the patient had a "grand mal" seizure in the ED. The patient was experiencing confusion following the seizure, and neurology was consulted. Neurology felt that the patient had acute encephalopathy likely secondary to hypoxia and cardiopulmonary problems. The patient was also noted to have hyponatremia and an elevated DDimer. 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 Acyclovir was started on top of IV Vancomycin and Zosyn. Patient's blood and urine cultures showed no growth. MRSA nasal swab was negative. Repeat urine culture on 03/16 still showed no growth. VBG on admission: pH 7.26 pCO2 33 pO2 55 HCO3 14 ABG this afternoon: pH 7.48 pCO2 30 pO2 128 HCO3 22 O2 Sat 98.9 Ammonia level: 36 (H) Procalcitonin on admission: <0.05 CRP 5.23 on admission --> 2.15 03/19 WBC count stable throughout admission- 5.85 today Patient is currently on IV Vancomycin, Zosyn, Albuterol, Heparin, and he completed 7 days of Acyclovir. Historian: other (chart) Onset: just prior to arrival Severity: moderate Complaint Status: worsened, persistent Review of Systems Unable to assess due to patient state Past Medical History Past Medical History: Medical Problems: (1) Acute bronchitis (2) Anemia (3) Arm paresthesia, right (4) Arm paresthesia, right (5) GERD (gastroesophageal reflux disease) (6) HTN (hypertension) (7) Hyperlipidemia (8) URI (upper respiratory infection) Surgical Problems: (1) H/O hernia repair Family History GI malignancy Social History Hx Tobacco Use In Past Year?: No Smoking Status: Never Smoker Marital status: Housing status: other Occupational Status: retired History of MDRO History of MDRO: No Allergies Coded Allergies: No Known Allergies (Verified , 03/11/17) Current Medications Reported Home Medications Medications Dose Route/Sig Max Daily Dose Days Date Category Dose Instructions Levaquin (Levofloxacin) 750 Mg Tab 750 Mg PO DAILY 03/11/17 Reported STARTED 03/06/17 Benefiber Drink Mix (Wheat Dextrin) 1 Pow Pow 2 Tsp PO DAILY 03/11/17 Reported Echinacea 400 Mg Cap 400 Mg PO TID PRN 03/11/17 Reported Docusate Sodium 100 Mg Cap 100 Mg PO BID 03/11/17 Reported Anusol-Hc 2.5% (Hydrocortisone 2.5% (Rectal)) 2.5 % Cre 1 Appln TOP BID 7 01/18/17 Rx Zyrtec (Cetirizine HCl) 10 Mg Tab 10 Mg PO QPM 01/18/17 Reported Guaifenesin Dm (Dextromethorphan-Guaifenesin) 1 Syp Syp 10 Ml PO Q4H PRN 01/18/17 Reported DO NOT EXCEED 6 DOSES/DAY Xarelto (Rivaroxaban) 15 Mg Tab 15 Mg PO QPM 01/18/17 Reported Lipitor (Atorvastatin Calcium) 40 Mg Tab 40 Mg PO QPM 10/12/16 Reported Zestril (Lisinopril) 2.5 Mg Tab 2.5 Mg PO QAM 10/12/16 Reported Proscar (Finasteride) 5 Mg Tab 5 Mg PO QPM 10/12/16 Reported Toprol Xl (Metoprolol Succinate) 25 Mg Tabcr 25 Mg PO QPM 10/12/16 Reported Kp Ferrous Sulfate (Ferrous Sulfate) 325 Mg Tab 325 Mg PO BID 10/12/16 Reported Mag-Ox (Magnesium Oxide) 400 Mg Tab 400 Mg PO QAM 10/12/16 Reported Protonix (Pantoprazole) 40 Mg Tab 40 Mg PO BID 10/12/16 Reported Physical Physical Exam Vital Signs: Date Time Temp Pulse Resp B/P (MAP) Pulse Ox O2 Delivery O2 Flow Rate FiO2 03/20/17 16:00 BiPAP 03/20/17 15:04 36.4 73 18 125/84 (98) 98 BiPAP 4.0 03/20/17 14:51 98 03/20/17 14:51 72 20 98 BiPAP/CPAP 4.0 03/20/17 13:05 Nasal Cannula 4.0 03/20/17 12:13 93 146/96 03/20/17 12:00 Nasal Cannula 4.0 03/20/17 11:37 93 20 95 Nasal Cannula 4.0 03/20/17 10:43 36.5 81 22 146/96 (113) 96 Nasal Cannula 4.0 03/20/17 08:00 Nasal Cannula 4.0 03/20/17 07:37 77 20 98 Nasal Cannula 4.0 03/20/17 07:00 36.1 73 22 163/101 (121) 96 Nasal Cannula 4.5 03/20/17 05:54 70 141/95 03/20/17 04:17 98 Nasal Cannula 4.0 03/20/17 04:02 70 20 97 Nasal Cannula 4.0 03/20/17 03:32 36.7 81 22 141/95 (110) 99 Nasal Cannula 4.0 03/20/17 00:00 98 Nasal Cannula 4.0 03/19/17 23:51 89 162/89 03/19/17 23:18 36.6 89 24 162/89 (113) 99 Nasal Cannula 4.0 03/19/17 23:08 84 22 100 Nasal Cannula 4.0 03/19/17 20:00 98 Nasal Cannula 4.0 03/19/17 19:00 77 20 98 Nasal Cannula 4.0 03/19/17 18:55 36.5 69 20 144/82 (102) 100 Nasal Cannula 4.0 General Appearance: uncomfortable, mild distress, other (BiPAP mask in place) Head: NORMOCEPHALIC Eyes: SCLERAE NORMAL Neck: TRACHEA MIDLINE, NO STRIDOR Respiratory: other (decreased breath sounds throughout bilateral lower lobes. Moderate rhonchi in upper lobes. BiPAP in place) Cardiovasular: other (distant heart sounds- difficult to hear over coarse breath sounds) Abdomen: NORMAL BOWEL SOUNDS Upper Extremities: NO EDEMA Lower Extremities: NO EDEMA Neuro: other (unresponsive) Psychiatric: other (unable to assess) Diagnostics Labs Results Past 24 Hours Test 03/19/17 18:53 03/20/17 00:46 03/20/17 04:36 03/20/17 06:36 Range/Units Bedside Glucose 153 149 116 70-99 mg/dl White Blood Count 5.85 4.8-10.8 K/uL Red Blood Count 3.47 4.7-6.1 M/uL Hemoglobin 10.6 14.0-18.0 g/dL Hematocrit 31.4 42-52 % Mean Corpuscular Volume 90.5 80-100 fL Mean Corpuscular Hemoglobin 30.5 25-34 pg Mean Corpuscular Hemoglobin Concent 33.8 32-36 g/dl Platelet Count 166 130-400 K/uL Mean Platelet Volume 9.5 7.4-10.4 fL Neutrophils (%) (Auto) 76.6 % Lymphocytes (%) (Auto) 7.7 % Monocytes (%) (Auto) 15.0 % Eosinophils (%) (Auto) 0.2 % Basophils (%) (Auto) 0.2 % Neutrophils # (Auto) 4.48 1.4-6.5 K/uL Lymphocytes # (Auto) 0.45 1.2-3.4 K/uL Monocytes # (Auto) 0.88 0.11-0.59 K/uL Eosinophils # (Auto) 0.01 0-0.5 K/uL Basophils # (Auto) 0.01 0-0.2 K/uL RDW Standard Deviation 48.2 36.4-46.3 fL RDW Coefficient of Variation 14.8 11.5-14.5 % Immature Granulocyte % (Auto) 0.3 % Immature Granulocyte # (Auto) 0.02 0.00-0.02 K/uL Sodium Level 134 136-145 mmol/L Potassium Level 4.2 3.5-5.1 mmol/L Chloride Level 103 98-107 mmol/L Carbon Dioxide Level 25 21-32 mmol/L Anion Gap 6.0 3-11 mmol/L Blood Urea Nitrogen 34 7-18 mg/dl Creatinine 0.74 0.60-1.40 mg/dl Est Creatinine Clear Calc Drug Dose 76.3 ml/min Estimated GFR () 96.8 Estimated GFR (Non- 83.5 BUN/Creatinine Ratio 46.4 10-20 Random Glucose 120 70-99 mg/dl Calcium Level 8.4 8.5-10.1 mg/dl Phosphorus Level 2.9 2.5-4.9 mg/dl Magnesium Level 2.0 1.8-2.4 mg/dl Albumin 2.8 3.4-5.0 gm/dl Triglycerides Level 61 0-150 mg/dl Test 03/20/17 11:42 03/20/17 13:41 Range/Units Bedside Glucose 103 70-99 mg/dl Arterial Blood pH 7.48 7.35-7.45 Arterial Blood Partial Pressure CO2 30 35-46 mmHg Arterial Blood Partial Pressure O2 128 80-95 mm/Hg Arterial Blood HCO3 22 19-24 mmol/L Arterial Blood Oxygen Saturation 98.9 90-95 % Arterial Blood Base Excess -1.2 -9-1.8 mEq/L Arterial Blood Gas Delivery 4 L Maximiliano Test POS POS Ammonia 36.0 11-32 umol/L Diagnostic Radiology (CHEST) THORAX WITHOUT CLINICAL HISTORY: 86 years-old Male presenting with hypoxia, purulent sputum, ?evolving pneumonia. TECHNIQUE: Multidetector CT imaging of the chest was performed without the use of intravenous contrast. IV contrast: None. A dose lowering technique was used consistent with the principles of ALARA (as low as reasonably achievable). COMPARISON: 03/11/2017. CT DOSE (mGy.cm): The estimated cumulative dose is 668.86 mGy.cm. 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 Venous varicosities noted in the axillae. No convincing evidence of axillary or mediastinal lymphadenopathy allowing for noncontrast technique. Atherosclerosis of the aorta. Ectasia of the ascending aorta with the transverse diameter measuring 5.0 cm, previously 4.9 cm. Multichamber enlargement of the heart. Left-sided pacer with single lead to the right ventricular apex. Coronary artery and aortic valve calcification. No pericardial effusion. Trace right and small left pleural effusions. The left pleural effusion may be loculated. Small hiatal hernia suggested. On lung windows, dependent consolidation in the right lower lobe. More extensive dependent consolidation in the left lower lobe likely passive atelectasis. However, solid nodular and groundglass opacities in the dependent portions of the left upper lobe consistent with new infiltrate. Allowing for degradation in image quality secondary to respiratory motion, central airways patent. On bone windows, degenerative changes of the thoracic spine. Exaggerated kyphosis of the thoracic spine. Anterior wedging deformity of T6, unchanged from prior. IMPRESSION: 1. Interval development of new solid nodular groundglass opacities in the dependent portions of the left upper lobe, consistent with pneumonia. Aspiration not excluded. 2. Trace right and small left pleural effusions with associated passive atelectasis. 3. 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 4. Cardiomegaly with right ventricular pacer. EKG EKG Today showed AFib, occasional ventricular paced beats, occasional PVC's Impression Assessment and Plan Encephalopathy Acute hypoxic respiratory failure Aspiration pneumonia/Hospital Acquired Pneumonia Zenker's diverticulum Hyponatremia Afib -Patient currently on BiPAP, but feel that he is being hyperventilated with low pCO2 and high pO2 on most recent ABG. Discussed with Dr. Dela Cruz- will change to CPAP instead of BiPAP and continue to monitor -Overall feel that this patient has a poor prognosis with altered mental status , periods of apnea, Helio antony breathing, etc. -Patient has completed 8 days of IV Vancomycin and Zosyn which is appropriate for HAP/aspiration pneumonia. Patient is not a good candidate for bronchoscopy to further evaluate due to poor respiratory prognosis/status Attending addendum Patient seen and examined with Katt SANDY. Labs, imaging, medications reviewed. Patient appeared very somnolent on BIPAP and minimally arousal to verbal stimuli. Patient is having witnessed apneic episodes, but does not appear to be hypercapnic and is not contributing to his altered mental status. Other metabolic causes should be considered. Discussed with Dr. Dela Cruz at length.
[2017-03-20] MEDS ORDERED: BISACODYL 10 MG SUPP PR ONE (18:00)
--- NOTE | 2017-03-20 19:30 | PROGRESS NOTE ---
DATE: 03/20/2017 SUBJECTIVE: The patient continues on n.p.o. status and TPN. The patient's chest x-ray continues to show changes of congestive heart failure. The patient did undergo video swallow with various textures including nectar thick and thin liquid barium, a barium-coated wafer and barium pudding on March 15. The patient did have evidence of aspiration with nectar thick liquids. Intra esophageal reflux was noted to the hypopharynx intermittently resulting in aspiration. 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 I think it would be difficult to perform esophageal manometry with the Zenker's diverticulum in place. It will be difficult to pass the catheter into the esophagus without coiling it in the Zenker's. I think the Zenker's probably should be treated first and see how the patient does after that and if an extensive manometry evaluation is felt to be necessary, it could be done subsequently. Unfortunately, esophageal dysmotility is difficult to treat, whereas the Zenker's is potentially curable endoscopically. Hopefully, these will reduce, but not eliminate the risk for recurrent aspirations. The patient is currently not stable enough to undergo the procedure and hopefully, this will change in the near future. We will continue to follow the patient.
[2017-03-20] MEDS: CETIRIZINE HCL 10 MG TAB PO SCH (21:00)
[2017-03-20] MEDS: FINASTERIDE 5 MG TAB PO SCH (21:00)
[2017-03-20] MEDS: ATORVASTATIN 20 MG TAB PO SCH (21:00)
[2017-03-21] VITALS (16 sets, daily range): BP systolic 131–164; BP diastolic 64–97; PULSE 62–86; TEMP 36–36.9; O2SAT 92–100
[2017-03-21] MEDS: METOPROLOL TARTRATE 1 MG/ML VIAL IV. SCH ×5 (01:09→23:49)
[2017-03-21] MEDS ORDERED: VANCOMYCIN INJ 1,250 MG in SODIUM CHLORIDE 0.9% 250ML 250 ML IV SCH ×2 (02:00→16:00)
[2017-03-21] MEDS: ALBUT/IPRATROP 3MG/0.5MG NEB 3 ML VIAL INH SCH ×6 (03:10→23:00)
[2017-03-21] MEDS: PIPERACILL/TAZOBAC IV 3.375 GM in DEXTROSE 5% 100ML IV SCH ×3 (03:32→20:27)
[2017-03-21] MEDS: LEVETIRACETAM IV 500 MG in DEXTROSE 5% 100ML 100 ML IV SCH ×2 (05:41→17:08)
[2017-03-21] MEDS: DOCUSATE SODIUM 100 MG CAP PO SCH ×2 (07:16→20:27)
[2017-03-21] MEDS: FERROUS SULFATE 325 MG TAB PO SCH ×2 (07:16→20:27)
[2017-03-21] MEDS: PANTOprazole SOD 40 MG TAB PO SCH ×2 (07:17→20:27)
[2017-03-21 07:40] LABS: BASO % 0.1 %; BASO ABS # 0.01 K/uL (0-0.2); COMPLETE YES; HEMATOCRIT 34.8 % (42-52); IG% 0.4 %; LYMPH % 8.4 %; LYMPH ABS # 0.79 K/uL (1.2-3.4); MEAN CELL VOLUME 91.8 fL (80-100); MEAN CORPUSCULAR HEMOGLOBIN 30.9 pg (25-34); MEAN CORPUSCULAR HGB CONC 33.6 g/dl (32-36); MONO % 6.9 %; NEUT % 84.2 %; PLATELET COUNT 207 K/uL (130-400); RED BLOOD COUNT 3.79 M/uL (4.7-6.1); WHITE BLOOD COUNT 9.37 K/uL (4.8-10.8)
[2017-03-21] MEDS: ENALAPRILAT IV 2.5 MG in DEXTROSE 5% 25ML 25 ML IV SCH ×4 (07:56→21:29)
[2017-03-21 08:09] LABS: BUN/CREATININE RATIO 34.3 (10-20); CALCIUM 8.7 mg/dl (8.5-10.1); CREATININE 1.1 mg/dl (0.60-1.40); MAGNESIUM 2.2 mg/dl (1.8-2.4); POTASSIUM 4.1 mmol/L (3.5-5.1)
[2017-03-21 08:18] LABS: PHOSPHORUS 4.1 mg/dl (2.5-4.9)
[2017-03-21] MEDS: ENOXAPARIN 40 MG/0.4 ML SYR SQ SCH (08:51)
[2017-03-21] MEDS ORDERED: FUROSEMIDE INJ 20 MG in SYRINGE 0 ML IV SCH (09:00)
--- NOTE | 2017-03-21 11:40 | Pulmonology Progress Note ---
Pulmonary Progress Note Date of Service Mar 21, 2017. Attending Dr. Schmitt Subjective Patient continues to be lethargic and only responds to some simple questions with a head nod. Patient's family is in the room today and feels that he is slightly improved. He did give them an "okay" sign with his hand when they asked how he was doing today. Patient continues on CPAP. Labs reviewed today: LFTs elevated- AST 211, ALT 157, Alk Phos 156, Total bili 1.7, Direct bili 0.8 Creatinine 1.10 WBC 9.37 Hgb 11.7 Meds reviewed: Continues Vancomycin, Zosyn, Furosemide, Heparin, Duoneb, Albuterol. Unable to reliably assess ROS due to patient state Objective VS reviewed. Afebrile CPAP flow rate 2 L. SaO2 93-97% RR 24-28 BP 151/92 when last checked this morning. General: Lethargic. Makes some on and off meaningful eye contact. Shakes head yes or no to answer some questions. Head: Normocephalic, Atraumatic. CPAP mask in place ENT: No discharge, EOMI, Sclera normal Neck: Trachea midline. No stridor Respiratory: CPAP in place. Continue mild rhonchi throughout bilateral lungs. Cardiovascular: Regular rate and rhythm. Difficult to hear over breath sounds Abdomen: Hypoactive bowel sounds Neuro: Lethargic, unable to assess due to state Assessment & Plan Encephalopathy Acute hypoxic respiratory failure Aspiration pneumonia/Hospital Acquired Pneumonia Zenker's diverticulum Hyponatremia Afib -Patient currently on CPAP- continue CPAP and monitor respiratory status closely. Less apneic episodes this morning per family -Overall feel that this patient has a poor prognosis -Patient has completed 9 days of IV Vancomycin and Zosyn which is appropriate for HAP/aspiration pneumonia. Patient is not a good candidate for bronchoscopy to further evaluate due to poor respiratory prognosis/status -No real changes from pulmonary standpoint at this time Data Medications: Current Inpatient Medications Medications (Trade) Dose Ordered Sig/Tanesha Route Start Time Stop Time Status Last Admin Dose Admin Acetaminophen (Tylenol Tab) 650 mg Q4H PRN PO 03/11/17 16:45 04/10/17 16:44 Ondansetron HCl (Zofran Inj) 4 mg Q6H PRN IV 03/11/17 16:45 04/10/17 16:44 Atorvastatin Calcium (Lipitor Tab) 40 mg QPM PO 03/11/17 21:00 04/10/17 20:59 Cetirizine HCl (zyrTEC TAB) 10 mg QPM PO 03/11/17 21:00 04/10/17 20:59 Docusate Sodium (coLACE CAP) 100 mg BID PO 03/11/17 21:00 04/10/17 20:59 Finasteride (Proscar Tab) 5 mg QPM PO 03/11/17 21:00 04/10/17 20:59 Lisinopril (Zestril Tab) 2.5 mg QAM PO 03/12/17 09:00 04/11/17 08:59 Future Hold Pantoprazole Sodium (Protonix Tab) 40 mg BID PO 03/11/17 21:00 04/10/17 20:59 Ferrous Sulfate (Feosol Tab) 325 mg BID PO 03/11/17 21:00 04/10/17 20:59 Levetiracetam 500 mg/Dextrose 105 ml @ 420 mls/hr Q12@0600,1800 IV 03/12/17 06:00 04/11/17 05:59 03/21/17 05:41 420 MLS/HR Piperacillin Sod/ Tazobactam Sod 3.375 gm/Dextrose 115 ml @ 28.75 mls/ hr Q8H IV 03/12/17 20:00 03/26/17 19:59 03/21/17 03:32 28.75 MLS/HR Hydralazine HCl (HydrALAZINE INJ) 10 mg Q6 PRN IV. 03/13/17 09:15 04/12/17 09:14 03/18/17 10:51 10 MG Albuterol/ Ipratropium (Duoneb) 3 ml Q4R INH 03/13/17 12:00 04/12/17 11:59 03/21/17 07:09 3 ML Albuterol Sulfate (Ventolin 0.083% 2.5MG/3ML Neb) 2.5 mg Q2R PRN INH 03/13/17 10:45 04/12/17 10:44 03/18/17 17:10 2.5 MG Metoprolol Succinate (Toprol Xl Tab) 25 mg BID PO 03/13/17 14:15 04/10/17 20:59 Future Hold Enoxaparin Sodium (Lovenox Inj) 40 mg QAM SQ 03/14/17 09:00 04/13/17 08:59 03/21/17 08:51 40 MG Metoprolol Tartrate (Lopressor Iv) 2.5 mg Q6 IV. 03/14/17 12:00 04/13/17 11:59 03/21/17 05:41 2.5 MG Miscellaneous Information (Pharmacy Tpn/ Ppn Consult Active) 1 UD PRN N/A 03/15/17 17:45 04/14/17 17:44 Dextrose 1,000 ml @ 0 mls/hr Q0M PRN IV 03/16/17 16:00 04/15/17 15:59 Enalaprilat 2.5 mg/Dextrose 27 ml @ 100 mls/hr QID IV 03/16/17 21:00 04/15/17 20:59 03/21/17 07:56 100 MLS/HR Haloperidol Lactate (Haldol Inj) 2.5 mg Q6 PRN IM 03/16/17 18:30 04/15/17 13:44 Heparin Sodium (Porcine) (Heparin 10 Unit/ ml 5 ml Flush) 5 ml PRN PRN FLUSH 03/18/17 01:15 04/17/17 01:14 Piperacillin Sod/ Tazobactam Sod (Consult) 1 [facility] PRN N/A 03/18/17 16:45 03/26/17 19:59 Nutrition (Parenteral) 0 ml @ 0 mls/hr TODAY@1600 IV 03/20/17 16:00 03/21/17 15:59 Vancomycin HCl 1250 mg/Sodium Chloride 275 ml @ 125 mls/hr Q12H IV 03/21/17 02:00 03/27/17 01:59 03/21/17 01:16 125 MLS/HR Vancomycin HCl (Consult) 1 [facility] PRN N/A 03/20/17 16:45 04/19/17 16:44 Furosemide 20 mg/ Syringe 2 ml @ 4 mls/min QAM IV 03/21/17 09:00 04/20/17 08:59 03/21/17 07:52 4 MLS/MIN Vital Signs: Date Time Temp Pulse Resp B/P (MAP) Pulse Ox O2 Delivery O2 Flow Rate FiO2 03/21/17 10:43 36.0 66 24 151/92 (111) 97 BiPAP 2.0 03/21/17 08:00 CPAP 03/21/17 07:10 77 28 94 BiPAP/CPAP 2.0 03/21/17 07:04 36.5 86 24 164/97 (119) 98 BiPAP 2.0 03/21/17 05:41 65 145/80 03/21/17 05:21 65 93 2.0 03/21/17 04:00 CPAP 2.0 03/21/17 03:26 36.4 65 26 145/80 (101) 99 BiPAP 2.0 03/21/17 03:11 64 20 97 BiPAP/CPAP 2.0 03/21/17 03:11 64 100 2.0 03/21/17 01:09 68 155/84 03/21/17 01:07 68 155/84 (107) 03/21/17 00:01 CPAP 4.0 03/20/17 23:12 36.9 68 28 138/86 (103) 96 BiPAP 2.0 03/20/17 23:05 67 20 100 BiPAP/CPAP 4.0 03/20/17 23:05 67 100 4.0 03/20/17 20:00 CPAP 4.0 03/20/17 19:58 36.7 76 20 147/95 (112) 95 BiPAP 4.0 03/20/17 19:28 80 94 4.0 03/20/17 19:27 80 26 94 BiPAP/CPAP 4.0 03/20/17 18:12 66 125/84 03/20/17 17:28 66 99 4.0 03/20/17 16:00 BiPAP 03/20/17 15:04 36.4 73 18 125/84 (98) 98 BiPAP 4.0 03/20/17 14:51 98 03/20/17 14:51 72 20 98 BiPAP/CPAP 4.0 03/20/17 13:05 Nasal Cannula 4.0 03/20/17 12:13 93 146/96 03/20/17 12:00 Nasal Cannula 4.0 03/20/17 11:37 93 20 95 Nasal Cannula 4.0 Laboratory Results: Last 24 Hours Test 03/20/17 11:42 03/20/17 13:41 03/20/17 18:05 03/21/17 00:04 Bedside Glucose 103 mg/dl 102 mg/dl 106 mg/dl Arterial Blood pH 7.48 Arterial Blood Partial Pressure CO2 30 mmHg Arterial Blood Partial Pressure O2 128 mm/Hg Arterial Blood HCO3 22 mmol/L Arterial Blood Oxygen Saturation 98.9 % Arterial Blood Base Excess -1.2 mEq/L Arterial Blood Gas Delivery 4 L Maximiliano Test POS Ammonia 36.0 umol/L Test 03/21/17 06:18 03/21/17 06:47 Bedside Glucose 114 mg/dl White Blood Count 9.37 K/uL Red Blood Count 3.79 M/uL Hemoglobin 11.7 g/dL Hematocrit 34.8 % Mean Corpuscular Volume 91.8 fL Mean Corpuscular Hemoglobin 30.9 pg Mean Corpuscular Hemoglobin Concent 33.6 g/dl Platelet Count 207 K/uL Mean Platelet Volume 10.0 fL Neutrophils (%) (Auto) 84.2 % Lymphocytes (%) (Auto) 8.4 % Monocytes (%) (Auto) 6.9 % Eosinophils (%) (Auto) 0.0 % Basophils (%) (Auto) 0.1 % Neutrophils # (Auto) 7.88 K/uL Lymphocytes # (Auto) 0.79 K/uL Monocytes # (Auto) 0.65 K/uL Eosinophils # (Auto) 0.00 K/uL Basophils # (Auto) 0.01 K/uL RDW Standard Deviation 49.6 fL RDW Coefficient of Variation 15.3 % Immature Granulocyte % (Auto) 0.4 % Immature Granulocyte # (Auto) 0.04 K/uL Nucleated RBC Absolute Count (auto) 0.05 K/uL Nucleated Red Blood Cells % 0.5 % Sodium Level 132 mmol/L Potassium Level 4.1 mmol/L Chloride Level 100 mmol/L Carbon Dioxide Level 22 mmol/L Anion Gap 10.0 mmol/L Blood Urea Nitrogen 38 mg/dl Creatinine 1.10 mg/dl Est Creatinine Clear Calc Drug Dose 55.8 ml/min Estimated GFR () 70.1 Estimated GFR (Non- 60.5 BUN/Creatinine Ratio 34.3 Random Glucose 109 mg/dl Calcium Level 8.7 mg/dl Phosphorus Level 4.1 mg/dl Magnesium Level 2.2 mg/dl Total Bilirubin 1.7 mg/dl Direct Bilirubin 0.8 mg/dl Aspartate Amino Transf (AST/SGOT) 211 U/L Alanine Aminotransferase (ALT/SGPT) 157 U/L Alkaline Phosphatase 156 U/L Total Protein 6.1 gm/dl Albumin 3.0 gm/dl Triglycerides Level 81 mg/dl
--- NOTE | 2017-03-21 11:59 | Hospitalist Progress Note ---
Hospitalist Progress Note Date of Service Mar 21, 2017. (Mesha Montelongo ., KENRICKC) Subjective Pt evaluation today including: conversation w/ patient, physical exam, chart review, lab review, review of studies, conversation w/ garden consultant (spoke with Katt from pul), review of inpatient medication list PO Intake: NPO Voiding: galvez catheter in place Unable to obtain reliable ROS due to pt condition. Pt does appear somewhat more alert today though and was able to deny pain or dyspnea. Additional Comments: Unable to obtain reliable ROS due to pt condition. (Mesha Montelongo ., DU) Objective Vital Signs Date Time Temp Pulse Resp B/P (MAP) Pulse Ox O2 Delivery O2 Flow Rate FiO2 03/21/17 10:43 36.0 66 24 151/92 (111) 97 BiPAP 2.0 03/21/17 08:00 CPAP 03/21/17 07:10 77 28 94 BiPAP/CPAP 2.0 03/21/17 07:04 36.5 86 24 164/97 (119) 98 BiPAP 2.0 03/21/17 05:41 65 145/80 03/21/17 05:21 65 93 2.0 03/21/17 04:00 CPAP 2.0 03/21/17 03:26 36.4 65 26 145/80 (101) 99 BiPAP 2.0 03/21/17 03:11 64 20 97 BiPAP/CPAP 2.0 03/21/17 03:11 64 100 2.0 03/21/17 01:09 68 155/84 03/21/17 01:07 68 155/84 (107) 03/21/17 00:01 CPAP 4.0 03/20/17 23:12 36.9 68 28 138/86 (103) 96 BiPAP 2.0 03/20/17 23:05 67 20 100 BiPAP/CPAP 4.0 03/20/17 23:05 67 100 4.0 03/20/17 20:00 CPAP 4.0 03/20/17 19:58 36.7 76 20 147/95 (112) 95 BiPAP 4.0 03/20/17 19:28 80 94 4.0 03/20/17 19:27 80 26 94 BiPAP/CPAP 4.0 03/20/17 18:12 66 125/84 03/20/17 17:28 66 99 4.0 03/20/17 16:00 BiPAP 03/20/17 15:04 36.4 73 18 125/84 (98) 98 BiPAP 4.0 03/20/17 14:51 98 03/20/17 14:51 72 20 98 BiPAP/CPAP 4.0 03/20/17 13:05 Nasal Cannula 4.0 03/20/17 12:13 93 146/96 03/20/17 12:00 Nasal Cannula 4.0 (Mesha Montelongo ., PA-C) Physical Exam Notes: General appearance: +Appears chronically ill. Well-developed, well-nourished, no apparent distress Head: Normocephalic, atraumatic Eyes: +Exam limited by pt condition. ENT: +Dry oral mucosa with crusts. Exam limited by pt condition Neck: +R IJ central line removed, site covered in gauze. Supple, no JVD, trachea midline Respiratory/Chest: +Decreased breath sounds. Lungs clear to auscultation, no respiratory distress Cardiovascular: +Irregularly irregular. No gallop, no murmur Abdomen/GI: +Hypoactive bowel sounds. Non-tender, soft Extremities/Musculoskeletal: Normal inspection, no calf tenderness, no pedal edema Neurological/Psych: +More alert. Able to shake his head "no" when asked if he had any pain or difficulty breathing. Still not verbally responding to questions. Unable to assess mood or orientation. Skin: +Ecchymoses RUE. Normal color, warm/dry, no rash (Mesha Montelongo ., PA-C) Laboratory Results Last 24 Hours Test 03/20/17 11:42 03/20/17 13:41 03/20/17 18:05 03/21/17 00:04 Bedside Glucose 103 mg/dl 102 mg/dl 106 mg/dl Arterial Blood pH 7.48 Arterial Blood Partial Pressure CO2 30 mmHg Arterial Blood Partial Pressure O2 128 mm/Hg Arterial Blood HCO3 22 mmol/L Arterial Blood Oxygen Saturation 98.9 % Arterial Blood Base Excess -1.2 mEq/L Arterial Blood Gas Delivery 4 L Maximiliano Test POS Ammonia 36.0 umol/L Test 03/21/17 06:18 03/21/17 06:47 Bedside Glucose 114 mg/dl White Blood Count 9.37 K/uL Red Blood Count 3.79 M/uL Hemoglobin 11.7 g/dL Hematocrit 34.8 % Mean Corpuscular Volume 91.8 fL Mean Corpuscular Hemoglobin 30.9 pg Mean Corpuscular Hemoglobin Concent 33.6 g/dl Platelet Count 207 K/uL Mean Platelet Volume 10.0 fL Neutrophils (%) (Auto) 84.2 % Lymphocytes (%) (Auto) 8.4 % Monocytes (%) (Auto) 6.9 % Eosinophils (%) (Auto) 0.0 % Basophils (%) (Auto) 0.1 % Neutrophils # (Auto) 7.88 K/uL Lymphocytes # (Auto) 0.79 K/uL Monocytes # (Auto) 0.65 K/uL Eosinophils # (Auto) 0.00 K/uL Basophils # (Auto) 0.01 K/uL RDW Standard Deviation 49.6 fL RDW Coefficient of Variation 15.3 % Immature Granulocyte % (Auto) 0.4 % Immature Granulocyte # (Auto) 0.04 K/uL Nucleated RBC Absolute Count (auto) 0.05 K/uL Nucleated Red Blood Cells % 0.5 % Sodium Level 132 mmol/L Potassium Level 4.1 mmol/L Chloride Level 100 mmol/L Carbon Dioxide Level 22 mmol/L Anion Gap 10.0 mmol/L Blood Urea Nitrogen 38 mg/dl Creatinine 1.10 mg/dl Est Creatinine Clear Calc Drug Dose 55.8 ml/min Estimated GFR () 70.1 Estimated GFR (Non- 60.5 BUN/Creatinine Ratio 34.3 Random Glucose 109 mg/dl Calcium Level 8.7 mg/dl Phosphorus Level 4.1 mg/dl Magnesium Level 2.2 mg/dl Total Bilirubin 1.7 mg/dl Direct Bilirubin 0.8 mg/dl Aspartate Amino Transf (AST/SGOT) 211 U/L Alanine Aminotransferase (ALT/SGPT) 157 U/L Alkaline Phosphatase 156 U/L Total Protein 6.1 gm/dl Albumin 3.0 gm/dl Triglycerides Level 81 mg/dl (Mesha Montelongo PA-C) Diagnostic Results Reviewed the following studies and agree with interpretation as follows: Patient Name: SHARMILA MERINO Unit Number: [id number] Dictated: 03/20/171344 Transcribed: 03/20/17 1345 MS Printed Date/Time: [~ rep prt dt]/[~ rep prt tm] [~ rep ct labl] - [~ rep ct ivnm] [facility] [place] [address] Dictated: 03/20/17 1345 Transcribed: 03/20/17 1345 MS Printed Date/Time: [~ rep prt dt]/[~ rep prt tm] [~ rep ct labl] - [~ rep ct ivnm] Patient: SHARMILA MERINO Address1: [id number] [facility] Rec: [id number] Address2: Acct ID: [id number] [facility] Zip: [place] [address] Date: 1930 Sex: M Room/Bed: S2391 Ref Phy: Tania Kowalski SC: Robin Att Phy: Santos Dorantes D.O. Report #: [id number] Tamica Phy: Wesley Gabriel M.D. Test: CXR1P Admit Phy: Roosevelt Muñiz D.O. Freight Flagman: MADELEINE Interpreting Phy: Bereket Cho M.D. Diagnosis: ALTERED MENTAL STATUS, HYPOXIA Ordering Phy: Aneta Dela Cruz MD Service Date: 03/20/17 Admit Date: 03/11/1709/16/17 MNE: [id number] CONF: DICTATED BY: Bereket Cho M.D.]] CC: Tania Kowalski Ryan, D.O. Sepich, Rodney M. M.D. Tussey, Natalie B., MD Endcc: [~ rep ct add3]] CHEST ONE VIEW PORTABLE CLINICAL HISTORY: tachypnea dyspnea COMPARISON STUDY: 03/19 2017 FINDINGS: Similar findings of cardiomegaly. Findings of congestive heart failure also unchanged. Possible small left effusion. IMPRESSION: Congestive failure unchanged radiographically from the prior exam. The above report was generated using voice recognition software. It may contain grammatical, syntax or spelling errors. Electronically signed by: Bereket Cho M.D. 03/20/2017 1:46 PM Dictated Date/Time: 03/20/2017 1:45 PM The status of this report is Signed. Draft = Not yet reviewed or approved by Radiologist. Signed = Reviewed and approved by Radiologist. <AttendingPhy>Santos Dorantes D.O.</AttendingPhy> <FamilyPhy>Tania Kowalski</ FamilyPhy> <PrimaryPhy>Wesley Gabriel M.D.</PrimaryPhy> <UnitNumber>[id number] </UnitNumber> <VisitNumber>[id number]</VisitNumber> <PatientName>SHARMILA MERINO</PatientName> <DateOfBirth>1930</DateOfBirth> <Location>C.2T</ Location> <ServiceDate>03/11/17</ServiceDate> <MNE>ESINDI</MNE> <OrderingPhy> Aneta Dela Cruz MD</OrderingPhy> <OrderingPhyMNE>f rep ord dr larson</ OrderingPhyMNE> <DictatingPhyMNE>f rep dict dr larson</DictatingPhyMNE> <CCListMNE> f rep ct mne</CCListMNE> <AdmittingPhyMNE>f pt admit dr larson</AdmittingPhyMNE> < AttendingPhyMNE>f pt attend dr larson</AttendingPhyMNE> <ConsultingPhyMNE>f pt consult dr larson</ConsultingPhyMNE> <FamilyPhyMNE>f pt fam dr larson</FamilyPhyMNE> <OtherPhyMNE>f pt other dr larson</OtherPhyMNE> < PrimaryPhyMNE>f pt prim care dr larson</PrimaryPhyMNE> <ReferringPhyMNE>f pt referring dr larson</ReferringPhyMNE> (Mesha Montelongo ., DU) Assessment and Plan 86 y/o with a history of a-fib on chronic anticoagulation, HTN, HLD, and GERD who presents to the ED on 03/11 with altered mental status and weakness. Septic/metabolic encephalopathy--ongoing. Pt's level of alertness slightly improved -Admit to telemetry. No acute events overnight. Pt in a-fib with PVCs HR 70s- 80s -Multifactorial. PNA, hyponatremia stable. Check other reasons -CXR 03/20 shows congestive failure, no significant change from previous study -Ammonia 36. Bisacodyl 10 mg WI x 1 as pt has not been having bowel movements for several days -Repeat ABG 03/20 showed hyperventilation. Continue CPAP -On encephalopathy coverage per ID. Completed full course acyclovir. Completed 7 days vancomycin. Zosyn IV, day #10 -D/C Zosyn and vancomycin -Brain MRI negative -Haldol IM prn severe agitation, use sparingly -CRP trending down Aspiration pneumonia w/acute hypoxic respiratory failure--stable -Daughter notes he gets respiratory illnesses every fall - raising suspicion of baseline allergic or pulmonary diseases; however, aspiration appears dominant piece of picture -D/C abx 03/21 -Continue nebs/pulmonary toilet -Continue supportive care -Will need to be medically stable from PNA before proceeding with endoscopic procedures at [facility] -Consult pulm, appreciate recs: Last ABG consistent with hyperventilation, recommend switching BiPAP to CPAP Pulmonary edema -Echo 03/12/17 LVEF 55-60%, no WMA. No diastolic dysfunction noted. 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 Would resolve this first and then could do manometry after if deemed necessary. Pt needs to become more stable from PNA before proceeding. -Due to severe esophageal dysmotility and Zenker diverticulum, it is unclear when the pt will be able to eat PO again. Will need group home alternative nourishment source. Discussed PEG tube with daughter present. Dr. Thorne is agreeable to placing one tomorrow if anesthesia agrees. Dtr will discuss with her siblings who have POA. -LFTs are trending up. Liver ultrasound ordered. -Possible transfer to [facility] this week to manage Zenker's diverticulum, possible myotomy. 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 Likely due to combined physiologic and neurologic stressors from all of above -Empiric Keppra 500 mg IV BID. Continue through hospitalization and early part of recovery, possibly longer A-fib--stable, rate controlled -Xarelto held due to NPO status -Lovenox for now, can increase to therapeutic dosing when it's clear no more procedures will be done Hypertension--stable -Home meds on hold while NPO -Vasotec 2.5 mg IV QID, Lopressor 2.5 mg IV q6h -Cover with hydralazine 10 mg IV q6h prn SBP >180 Hyperlipidemia -Lipitor on hold while NPO 5 cm aneurysm -Prior hospitalist made family aware. Outpt f/u DVT prophylaxis -Enoxaparin 40 mg SC q24h, resume therapeutic anticoagulation when no more procedures Code Status -Level V, DO NOT RESUSCITATE (Mesha Montelongo, DU) Reviewed: Pt Seen/Exam by Me (Aneta Dela Cruz MD) History Physician Tie Up Worker Supervision Note: I interviewed and examined the patient. Discussed with BRET Montelongo and agree with findings and plan as documented in the note. Any exceptions or clarifications are listed here: Pt more alert today, has eyes open and keeps pointing to CPAP mask and indicating he would like to take it off. Gives me an "okay" symbol. Denies abd pain, no CP, no cough or SOB. Had 2 BMs today. Tele reviewed, Vitals reviewed, I/O markedly net positive over admission but improving with IV lasix, diuresing lying in bed, awake at times, sometimes drifts back to sleep and still with periods of Helio Shrestha breathing irreg irreg, 2/6 BRANDT at [facility]LSB Lungs with improved BS in upper airways, otherwise clear, is having Cheye- Shrestha breathing, periods of apnea for approximately 10-15 seconds Abd +BS, soft, NT ND Ext trace pitting edema Pt is an 86 yo male here with acute metabolic encephalopathy secondary to aspiration PNA, with Zenker's diverticulum and esophageal dysmotility. Now off TPN and plan for PEG tube. Mental status improved today. 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 Thorne--> request Dietary to give recommendations for enteral feedings Acute on chronic diastolic CHF, Helio Shrestha respirations-central vs cardiac issues -continue CPAP for respiratory support while obtunded and having Cheye-Shrestha breathing is likely related to his PNA and encephalopathy (central process) -continue to diurese with IV lasix daily given markedly positive net balance of fluid and evidence of pulm edema on CXR, follow I/Os -Lovenox SQ for DVT proph but hold for procedure tomorrow, may go back on Xarelto after procedure Documented By: Aneta Dela Cruz (Aneta Dela Cruz MD)
[2017-03-21] MEDS ORDERED: CUSTOM CENTRAL PN 1 BAG IV SCH (16:00)
--- NOTE | 2017-03-21 16:57 | DIAGNOSTIC IMAGING REPORT ---
(LIVER) ABDOMEN LIMITED CLINICAL HISTORY: 86 years-old Male presenting with elevated LFTs. TECHNIQUE: Real-time grayscale and limited color Doppler ultrasound imaging of the abdomen limited to the right upper quadrant was performed. COMPARISON: None. FINDINGS: Pancreas: Visualized portions of the pancreatic head and body normal. Liver: Normal echogenicity and echotexture. The liver measures 17.9 cm in maximal sagittal dimension. No sonographic evidence of hepatic mass. Main portal vein patent with normal directional flow. Biliary: No intrahepatic biliary ductal dilatation. Common bile duct measures up to 4 mm in diameter. Gallbladder: Layering sludge. A portion of the gallbladder wall along the interface with the liver demonstrates thickening up to 12 mm. Right kidney: Normal in appearance and size, measuring 11.6 cm. No hydronephrosis. Ascites: None. IMPRESSION: 1. Focal gallbladder wall thickening in the setting of gallbladder sludge. This is equivocal for cholecystitis. If there is continuing clinical concern for this diagnosis, nuclear medicine hepatobiliary scan could be obtained. 2. Mild hepatomegaly. Electronically signed by: Demetris Patton M.D. 03/21/2017 4:55 PM Dictated Date/Time: 03/21/2017 4:51 PM
--- NOTE | 2017-03-21 18:47 | GASTROENTEROLOGY PROGRESS NOTE ---
DATE: 03/21/2017 SUBJECTIVE: The patient is having difficulty with central line access. PICC line was unsuccessful. TPN is now off. The patient is more alert today. Family members are present. We had a lengthy discussion regarding sources of enteral feeding, the Zenker's diverticulum, and the suspected panesophageal dysmotility. He was found to have LFTs that were elevated and underwent an ultrasound of the gallbladder that showed a normal liver and normal biliary ductal system without ductal dilation. The common bile duct was 4 mm. The gallbladder shows layering sludge. There is also focal gallbladder wall thickening. A nuclear medicine scan was recommended. There is also mild hepatomegaly. His LFTs today show total bilirubin 1.7, direct 0.8, AST 211, ALT 157 and alkaline phosphatase 156. These elevations are occurring in the setting of several days of TPN and this may be a culprit. PHYSICAL EXAMINATION: VITAL SIGNS: Today, the patient is afebrile at 36.4, blood pressure 143/85, respirations 23, heart rate 78, and sats 99% on BiPAP. GENERAL: The patient is arousable and alert. Just shows an okay sign when you call his name. HEART: Normal S1 and S2. LUNGS: Clear to auscultation. ABDOMEN: Soft, flat, nontender, and nondistended with good bowel sounds. There is no rebound or guarding. I do not appreciate hepatosplenomegaly. EXTREMITIES: Without clubbing, cyanosis or edema. RECTAL: Deferred. Review of systems is otherwise noncontributory by 13-point exam. IMPRESSION AND PLAN: The patient is with a Zenker's diverticulum, recurrent aspiration pneumonia with mild congestive heart failure as well. There is also LFT abnormalities with sludge in the gallbladder and perhaps some slight gallbladder thickening, although there is no ductal dilation. I spoke with the patient's family that present this evening at length regarding the swallowing. Although, the Zenker's is present, whether or not this represent all the patient's dysphagia and risk for aspiration is unclear. There is dysmotility on prior barium swallow and I am concerned that even though, Zenker's may be repaired that the dysmotility may not alleviate the risk of aspiration. Therefore, I believe PEG tube is reasonable initially and we will plan to do this tomorrow. The family is agreeable and the power of maintenance engineer oil field, Barbra will be available tomorrow at 11:00 a.m. and afterwards for consent. We will keep the patient n.p.o. Current medications were reviewed. The patient is currently on Zosyn. We will check INR today and plan for a PEG tube tomorrow if anesthesia is agreeable. At some point, depending on the response to gastric feeding, if aspiration persists, then jejunal feedings may be better tolerated, at which point, a jejunal feeding extension can be placed through the PEG tube initially and at some point in the future, convert to a PEG/J tube. All questions answered. MTDD
[2017-03-21 19:03] LABS: INR 1.5 (0.9-1.1); PROTHROMBIN TIME (PATIENT) 16.1 SECONDS (9.0-12.0)
[2017-03-21] MEDS: ATORVASTATIN 20 MG TAB PO SCH (20:27)
[2017-03-21] MEDS: CETIRIZINE HCL 10 MG TAB PO SCH (20:27)
[2017-03-21] MEDS: FINASTERIDE 5 MG TAB PO SCH (20:28)
[2017-03-21] MEDS ORDERED: METOPROLOL TARTRATE 1 MG/ML VIAL ONE (23:48)
[2017-03-22] VITALS (16 sets, daily range): BP systolic 135–146; BP diastolic 78–101; PULSE 55–79; TEMP 36.5–36.8; O2SAT 88–100
[2017-03-22] MEDS: RANITIDINE IV 50 MG in DEXTROSE 5% 100ML 100 ML IV SCH ×4 (01:00→19:46)
[2017-03-22] MEDS: ALBUT/IPRATROP 3MG/0.5MG NEB 3 ML VIAL INH SCH ×7 (03:30→23:11)
[2017-03-22] MEDS: LEVETIRACETAM IV 500 MG in DEXTROSE 5% 100ML 100 ML IV SCH ×2 (05:34→19:30)
[2017-03-22] MEDS: METOPROLOL TARTRATE 1 MG/ML VIAL IV. SCH ×3 (05:35→19:33)
[2017-03-22] MEDS ORDERED: CEFAZOLIN 2000 MG/60 ML D5W IV SCH (06:00)
[2017-03-22] MEDS ORDERED: CEFAZOLIN IV 2,000 MG/60 ML D5W IV ONE (06:00)
[2017-03-22 06:29] LABS: HEMATOCRIT 33.3 % (42-52); MEAN CELL VOLUME 92.2 fL (80-100); MEAN CORPUSCULAR HEMOGLOBIN 30.2 pg (25-34); MEAN CORPUSCULAR HGB CONC 32.7 g/dl (32-36); MEAN PLATELET VOLUME 9.5 fL (7.4-10.4); PLATELET COUNT 190 K/uL (130-400); RED BLOOD COUNT 3.61 M/uL (4.7-6.1)
[2017-03-22 07:05] LABS: BUN/CREATININE RATIO 34.6 (10-20); C-REACTIVE PROTEIN 3.59 mg/dl (0-0.29); CALCIUM 8.8 mg/dl (8.5-10.1); CREATININE 1.1 mg/dl (0.60-1.40); PHOSPHORUS 3.8 mg/dl (2.5-4.9); POTASSIUM 3.3 mmol/L (3.5-5.1); PREALBUMIN 11.5 mg/dl (20-40)
[2017-03-22] MEDS: ENALAPRILAT IV 2.5 MG in DEXTROSE 5% 25ML 25 ML IV SCH ×4 (08:24→21:05)
[2017-03-22] MEDS: D5W AND 1/2NSS + 20MEQ KCL 1,000 ML IV SCH (10:12)
[2017-03-22] MEDS: POTASSIUM CHLR 10 MEQ / WTR 10 MEQ in PREMIXED WATER 100 ML IV SCH ×4 (10:14→19:31)
[2017-03-22] MEDS ORDERED: VANCOMYCIN TROUGH ONE ×2 (13:30→19:30)
--- NOTE | 2017-03-22 14:28 | Hospitalist Progress Note ---
Hospitalist Progress Note Date of Service Mar 22, 2017. (Mesha Montelongo ., KENRICKC) Subjective Pt evaluation today including: conversation w/ patient, conversation w/ family (daughter at bedside), physical exam, chart review, lab review, review of inpatient medication list Pain: None PO Intake: NPO Voiding: galvez catheter in place Patient much more awake today. He denies any complaints except for fatigue and states he is feeling well. He is asking when his PEG tube will be placed. The patient denies fevers, chills, sweats, chest pain, palpitations, claudication, cough, wheezing, shortness of breath, nausea, vomiting, abdominal pain, dysuria , hematuria, urinary retention, paralysis, weakness, numbness and tingling. Additional Comments: See HPI for pertinent positives and negatives. All other systems reviewed and negative. (Mesha Montelongo ., BRET-C) Objective Vital Signs Date Time Temp Pulse Resp B/P (MAP) Pulse Ox O2 Delivery O2 Flow Rate FiO2 03/22/17 13:43 64 143/62 03/22/17 11:44 36.6 67 18 142/78 93 Nasal Cannula 2.0 03/22/17 11:30 Nasal Cannula 2.0 03/22/17 11:11 55 18 93 Nasal Cannula 2.0 03/22/17 07:30 Nasal Cannula 2.0 03/22/17 07:23 73 20 96 Nasal Cannula 2.0 03/22/17 07:16 36.6 67 22 142/78 (99) 99 Nasal Cannula 2.0 03/22/17 05:35 69 135/84 03/22/17 04:00 Nasal Cannula 2.0 03/22/17 03:38 36.5 69 16 143/101 (115) 99 Nasal Cannula 2.0 135/84 (101) 03/22/17 03:31 74 20 97 Nasal Cannula 2.0 03/21/17 23:59 CPAP 03/21/17 23:49 78 03/21/17 23:31 36.3 73 20 164/89 (114) 95 BiPAP 03/21/17 23:02 84 24 96 BiPAP/CPAP 2.0 03/21/17 22:05 74 95 2.0 03/21/17 20:00 CPAP 03/21/17 19:25 62 16 97 Nasal Cannula 2.0 03/21/17 19:09 36.9 78 19 131/80 (97) 97 Nasal Cannula 2.0 03/21/17 18:43 76 143/85 03/21/17 16:08 76 97 2.0 03/21/17 16:07 76 20 97 BiPAP/CPAP 2.0 03/21/17 16:04 36.4 78 23 143/85 (104) 99 BiPAP 03/21/17 16:00 CPAP (Mesha Montelongo ., PA-C) Physical Exam Notes: General appearance: +Appears chronically ill. Well-developed, well-nourished, no apparent distress Head: Normocephalic, atraumatic Eyes: Normal inspection, PERRL ENT: +Copious thick, white secretions. Hearing grossly normal Neck: Supple, no JVD, trachea midline Respiratory/Chest: +Coarse breath sounds. Lungs clear to auscultation, no respiratory distress Cardiovascular: +Irregularly irregular, rate controlled. No gallop, no murmur Abdomen/GI: +Hypoactive bowel sounds. Non-tender, soft Extremities/Musculoskeletal: Normal inspection, no calf tenderness, no pedal edema Neurological/Psych: +Much more awake today, conversing with me. Easily fatigues and fall asleep. Oriented x 3. Skin: +Ecchymoses RUE. Normal color, warm/dry, no rash (Mesha Montelongo ., PA-C) Laboratory Results Last 24 Hours Test 03/21/17 18:11 03/21/17 18:36 03/21/17 23:55 03/22/17 06:18 Bedside Glucose 125 mg/dl 98 mg/dl Prothrombin Time 16.1 SECONDS Prothromb Time International Ratio 1.5 White Blood Count 8.40 K/uL Red Blood Count 3.61 M/uL Hemoglobin 10.9 g/dL Hematocrit 33.3 % Mean Corpuscular Volume 92.2 fL Mean Corpuscular Hemoglobin 30.2 pg Mean Corpuscular Hemoglobin Concent 32.7 g/dl RDW Standard Deviation 50.1 fL RDW Coefficient of Variation 15.4 % Platelet Count 190 K/uL Mean Platelet Volume 9.5 fL Sodium Level 135 mmol/L Potassium Level 3.3 mmol/L Chloride Level 102 mmol/L Carbon Dioxide Level 25 mmol/L Anion Gap 8.0 mmol/L Blood Urea Nitrogen 38 mg/dl Creatinine 1.10 mg/dl Est Creatinine Clear Calc Drug Dose 51.3 ml/min Estimated GFR () 70.1 Estimated GFR (Non- 60.5 BUN/Creatinine Ratio 34.6 Random Glucose 114 mg/dl Calcium Level 8.8 mg/dl Phosphorus Level 3.8 mg/dl Total Bilirubin 1.6 mg/dl Direct Bilirubin 0.7 mg/dl Aspartate Amino Transf (AST/SGOT) 164 U/L Alanine Aminotransferase (ALT/SGPT) 143 U/L Alkaline Phosphatase 163 U/L Ammonia 20.0 umol/L C-Reactive Protein 3.59 mg/dl Total Protein 5.8 gm/dl Albumin 2.9 gm/dl Prealbumin 11.5 mg/dl (Mesha Montelongo PA-C) Diagnostic Results Reviewed the following studies and agree with interpretation as follows: Patient Name: SHARMILA MERINO Unit Number: [id number] Dictated: 03/21/171650 Transcribed: 03/21/171650 PBS Printed Date/Time: [~ rep prt dt]/[~ rep prt tm] [~ rep ct labl] - [~ rep ct ivnm] [facility] [place] [address] Dictated: 03/21/171650 Transcribed: 03/21/171650 PBS Printed Date/Time: [~ rep prt dt]/[~ rep prt tm] [~ rep ct labl] - [~ rep ct ivnm] Patient: SHARMILA MERINO Address1: [address] [place], [place] [id number] Rec: [id number] Address2: Acct ID: [id number] [place] Zip: [place] [address] Date: 1930 Sex: M Room/Bed: [facility] Ref Phy: Tania Kowalski SC: MehulT Att Phy: Aneta Dela Cruz MD Report #: [id number] Tamica Phy: Wesley Gabriel M.D. Test: LVR Admit Phy: Roosevelt Muñiz D.O. Kindergarten Classroom Teacher: HEIDE Interpreting Phy: Demetris Patton MD Diagnosis: ALTERED MENTAL STATUS, HYPOXIA Ordering Phy: Mesha Montelongo PA-C Service Date: 03/21/17 Admit Date: 03/11/1709/16/17 MNE: [id number] CONF: DICTATED BY: Demetris Patton MD]] CC: Mesha Montelongo ., Tania Perez Rodney M. M.D. Tussey, Natalie B., MD Endcc: [~ rep ct add3]] (LIVER) ABDOMEN LIMITED CLINICAL HISTORY: 86 years-old Male presenting with elevated LFTs. TECHNIQUE: Real-time grayscale and limited color Doppler ultrasound imaging of the abdomen limited to the right upper quadrant was performed. COMPARISON: None. FINDINGS: Pancreas: Visualized portions of the pancreatic head and body normal. Liver: Normal echogenicity and echotexture. The liver measures 17.9 cm in maximal sagittal dimension. No sonographic evidence of hepatic mass. Main portal vein patent with normal directional flow. Biliary: No intrahepatic biliary ductal dilatation. Common bile duct measures up to 4 mm in diameter. Gallbladder: Layering sludge. A portion of the gallbladder wall along the interface with the liver demonstrates thickening up to 12 mm. Right kidney: Normal in appearance and size, measuring 11.6 cm. No hydronephrosis. Ascites: None. IMPRESSION: 1. Focal gallbladder wall thickening in the setting of gallbladder sludge. This is equivocal for cholecystitis. If there is continuing clinical concern for this diagnosis, nuclear medicine hepatobiliary scan could be obtained. 2. Mild hepatomegaly. Electronically signed by: Demetris Patton M.D. 03/21/2017 4:55 PM Dictated Date/Time: 03/21/2017 4:51 PM The status of this report is Signed. Draft = Not yet reviewed or approved by Radiologist. Signed = Reviewed and approved by Radiologist. <AttendingPhy>Aneta Dela Cruz MD</AttendingPhy> <FamilyPhy>Tania Kowalski< /FamilyPhy> <PrimaryPhy>Wesley Gabriel M.D.</PrimaryPhy> <UnitNumber> [id number]</UnitNumber> <VisitNumber>[id number]</VisitNumber> <PatientName> SHARMILA MERINO</PatientName> <DateOfBirth>1930</DateOfBirth> <Location> C.2T</Location> <ServiceDate>03/11/17</ServiceDate> <MNE>ESINDI</MNE> < OrderingPhy>Mesha Montelongo PA-C</OrderingPhy> <OrderingPhyMNE>f rep ord dr larson< /OrderingPhyMNE> <DictatingPhyMNE>f rep dict dr larson</DictatingPhyMNE> <CCListMNE >f rep ct mne</CCListMNE> <AdmittingPhyMNE>f pt admit dr larson</AdmittingPhyMNE> < AttendingPhyMNE>f pt attend dr larson</AttendingPhyMNE> <ConsultingPhyMNE>f pt consult dr larson</ConsultingPhyMNE> <FamilyPhyMNE>f pt fam dr larson</FamilyPhyMNE> <OtherPhyMNE>f pt other dr larson</OtherPhyMNE> < PrimaryPhyMNE>f pt prim care dr larson</PrimaryPhyMNE> <ReferringPhyMNE>f pt referring dr larson</ReferringPhyMNE> (Mesha Montelongo ., DU) Assessment and Plan 86 y/o with a history of a-fib on chronic anticoagulation, HTN, HLD, and GERD who presents to the ED on 03/11 with altered mental status and weakness. Septic/metabolic encephalopathy--improving -Admit to telemetry. No acute events overnight. Pt in a-fib with PVCs HR 60s- 70s -Multifactorial. PNA, hyponatremia stable. Check other reasons -CXR 03/20 shows congestive failure, no significant change from previous study -Ammonia improved to 20 following Bisacodyl -Repeat ABG 03/20 showed hyperventilation. Continue CPAP -Pt breathing comfortably on NC -On encephalopathy coverage per ID. Completed full course acyclovir. Completed 7 days vancomycin. Zosyn IV, day #10 -D/C Zosyn and vancomycin -Brain MRI negative -Haldol IM prn severe agitation, use sparingly -Mental status much improved, more awake/alert and able to converse although very lethargic still. Actually oriented x 3. Aspiration pneumonia w/acute hypoxic respiratory failure--stable -Daughter notes he gets respiratory illnesses every fall - raising suspicion of baseline allergic or pulmonary diseases; however, aspiration appears dominant piece of picture -D/C abx 03/21 -Continue nebs/pulmonary toilet -Continue supportive care -Will need to be medically stable from PNA before proceeding with endoscopic procedures at [facility] -Consult pulm, appreciate recs: Last ABG consistent with hyperventilation, continue CPAP Pulmonary edema -Echo 03/12/17 LVEF 55-60%, no WMA. No diastolic dysfunction noted. -D/C Lasix Dysphagia/aspiration due to Zenker's diverticulum and possibly esophageal dysmotility--ongoing -NPO -GI consulted, appreciate recs: Plan for PEG tube 03/22 -LFTs trending back down. May have been secondary to TPN -Liver ultrasound shows gallbladder wall thickening and sludge, findings equivocal for cholecystitis -Unable to obtain HIDA. Pt cannot clear secretions when laying flat -Pt will likely need a stay at [facility] to get stronger first, then transfer to [facility] for endoscopic tx of Zenker diverticulum Prolonged poor PO intake/acute protein-calorie malnutrition -Unable to pass NGT. TPN d/c'd. 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 Likely due to combined physiologic and neurologic stressors from all of above -Empiric Keppra 500 mg IV BID. Continue through hospitalization and early part of recovery, possibly longer A-fib--stable, rate controlled -Xarelto held due to NPO status -Hold Lovenox prior to PEG tube placement Hypertension--stable -Home meds on hold while NPO -Vasotec 2.5 mg IV QID, Lopressor 2.5 mg IV q6h -Cover with hydralazine 10 mg IV q6h prn SBP >180 Hyperlipidemia -Lipitor on hold while NPO 5 cm aneurysm -Prior hospitalist made family aware. Outpt f/u DVT prophylaxis -Hold chemical prophylaxis due to procedure -SCDs Code Status -Level V, DO NOT RESUSCITATE (Mesha Montelongo, PAHaleyC) Reviewed: Pt Seen/Exam by Me (Aneta Dela Cruz MD) History Physician Patient Clerical Assistant Supervision Note: I interviewed and examined the patient. Discussed with BRET Montelongo and agree with findings and plan as documented in the note. Any exceptions or clarifications are listed here: Much improved with mental status today. Went for PEG and had some hypoxia after surgery, was given lasix by Anesthesia. Discussed case with daughter. She is hopeful for improvement, but realistic that his prognosis is guarded overall. Tele reviewed, Vitals reviewed lying in bed, awake, alert, still a little drowsy from anesthesia but signals to me and to his daughter irreg irreg, 2/6 BRANDT at [facility] Lungs with improved BS in upper airways Abd +BS, soft, NT ND, dressing over PEG tube in place is c/d/i Ext trace pitting edema Pt is an 86 yo male here with acute metabolic encephalopathy secondary to aspiration PNA, with Zenker's diverticulum and esophageal dysmotility. Now off TPN and had PEG tube placed. Mental status improved today. 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 and decreased collapsibility of IVC -continue CPAP for respiratory support and having Cheye-Shrestha breathing is likely related to his PNA and encephalopathy (central process) -continue diuresis with IV lasix daily given markedly positive net balance of fluid and evidence of pulm edema on CXR, follow I/Os -Lovenox SQ for DVT proph but was on hold for PEG, could restart tomorrow -restart Xarelto when ok with GI Dispo-discussed at length with daughter today, not ready to go to [facility] yet, pt was clearly awake and oriented earlier today and was accepting of PEG tube, wants to try to get better Documented By: Aneta Dela Cruz (Aneta Dela Cruz MD)
--- NOTE | 2017-03-22 16:11 | History & Physical Bridge Note ---
H&P Re-Evaluation Bridge Note: I have examined the patient, reviewed the History & Physical and in the interval since the performance of the History & Physical I have noted the following changes of clinical significance: No changes noted Consent obtained from pt's daughter ( POA) Agrees to proceed with PEG placement
--- NOTE | 2017-03-22 17:11 | GI REPORT ---
Procedure Date: 03/22/2017 4:26 PM Procedure: Upper GI endoscopy Indications: Oropharyngeal phase dysphagia, Esophageal dysphagia Medicines: Propofol per Anesthesia Complications: No immediate complications. Estimated blood loss: Minimal. Estimated Blood Loss: Estimated blood loss was minimal. Procedure: Pre-Anesthesia Assessment: - Prior to the procedure, a History and Physical was performed, and patient medications and allergies were reviewed. The patient's tolerance of previous anesthesia was also reviewed. The risks and benefits of the procedure and the sedation options and risks were discussed with the patient. All questions were answered, and informed consent was obtained. Prior Anticoagulants: The patient has taken no previous anticoagulant or antiplatelet agents. ASA Grade Assessment: III - A patient with severe systemic disease. After reviewing the risks and benefits, the patient was deemed in satisfactory condition to undergo the procedure. After obtaining informed consent, the endoscope was passed under direct vision. Throughout the procedure, the patient's blood pressure, pulse, and oxygen saturations were monitored continuously. The Scope was introduced through the mouth, and advanced to the second part of duodenum. The upper GI endoscopy was performed with moderate difficulty due to unusual anatomy. The patient tolerated the procedure fairly well. Findings: A non-bleeding Zenker's diverticulum with a large opening, no impacted food and no stigmata of recent bleeding was found. The exam of the esophagus was otherwise normal. The entire examined stomach was normal. The examined duodenum was normal. The cardia and gastric fundus were normal on retroflexion. Retained gastric contents are not identified on this exam. The gastric body was normal. The patient was placed in the supine position for PEG placement. The stomach was insufflated to appose gastric and abdominal trevino. A site was located in the body of the stomach with excellent transillumination and manual external pressure for placement. The abdominal wall was marked and prepped in a sterile manner. The area was anesthetized with 3 mL of 0.5% lidocaine. The trocar needle was introduced through the abdominal wall and into the stomach under direct endoscopic view. A snare was introduced through the endoscope and opened in the gastric lumen. The guide wire was passed through the trocar and into the open snare. The snare was closed around the guide wire. The endoscope and snare were removed, pulling the wire out through the mouth. A skin incision was made at the site of needle insertion. The externally removable 24 Fr Terrell-Cook gastrostomy tube was lubricated. The G-tube was tied to the guide wire and pulled through the mouth and into the stomach. The trocar needle was removed, and the gastrostomy tube was pulled out from the stomach through the skin. The external bumper was attached to the gastrostomy tube, and the tube was cut to remove the guide wire. The final position of the gastrostomy tube was confirmed by skin marking noted to be 2.5 cm at the external bumper. The final tension and compression of the abdominal wall by the PEG tube and external bumper were checked and revealed that the bumper was loose and lightly touching the skin and that the PEG balloon was loose and lightly touching the stomach. The feeding tube was capped, and the tube site cleaned and dressed. Impression: - Zenker's diverticulum. - Normal stomach. - Normal examined duodenum. - Normal gastric body. - An externally removable PEG placement was successfully completed. - No specimens collected. Recommendation: - Return patient to hospital [facility] for ongoing care. - Please follow the post-PEG recommendations including: clean site with soap and water daily and dry thoroughly, dry dressing only and may use PEG tomorrow for feedings. MD Ta Morales MD 03/22/2017 5:11:40 PM This report has been signed electronically. Note Initiated On: 03/22/2017 4:26 PM I attest to the content of the Intraoperative Record and orders documented therein, exceptions below
[2017-03-22] MEDS ORDERED: PROPOFOL IV EMULSION 10 MG/ML 20 ML VIAL IV ONE (17:23)
[2017-03-22] MEDS ORDERED: LIDOCAINE HCL 2% 2 ML VIAL (20MG/ML) ONE (17:23)
[2017-03-22] MEDS ORDERED: PHENYLEPHRINE 100MCG/ML 5ML SYR ONE (17:23)
[2017-03-22] MEDS ORDERED: FUROSEMIDE 10 MG/ML 10 ML VIAL ONE (17:42)
--- NOTE | 2017-03-22 17:47 | Infectious Disease Progress Nt ---
Progress Note Date of Service Mar 22, 2017. Subjective Pt evaluation today including: conversation w/ patient, physical exam, chart review, lab review, review of studies, conversation w/ pension consultant, review of inpatient medication list Patient is status post PEG placement. Mental status is about the same. Remains afebrile. All Other Systems: Reviewed and Negative Medications Current Inpatient Medications Medications (Trade) Dose Ordered Sig/Tanesha Route Start Time Stop Time Status Last Admin Dose Admin Acetaminophen (Tylenol Tab) 650 mg Q4H PRN PO 03/11/17 16:45 04/10/17 16:44 Future Hold Ondansetron HCl (Zofran Inj) 4 mg Q6H PRN IV 03/11/17 16:45 04/10/17 16:44 Atorvastatin Calcium (Lipitor Tab) 40 mg QPM PO 03/11/17 21:00 04/10/17 20:59 Future Hold Cetirizine HCl (zyrTEC TAB) 10 mg QPM PO 03/11/17 21:00 04/10/17 20:59 Future Hold Docusate Sodium (coLACE CAP) 100 mg BID PO 03/11/17 21:00 04/10/17 20:59 Future Hold Finasteride (Proscar Tab) 5 mg QPM PO 03/11/17 21:00 04/10/17 20:59 Future Hold Lisinopril (Zestril Tab) 2.5 mg QAM PO 03/12/17 09:00 04/11/17 08:59 Future Hold Ferrous Sulfate (Feosol Tab) 325 mg BID PO 03/11/17 21:00 04/10/17 20:59 Future Hold Levetiracetam 500 mg/Dextrose 105 ml @ 420 mls/hr Q12@0600,1800 IV 03/12/17 06:00 04/11/17 05:59 03/22/17 05:34 420 MLS/HR Hydralazine HCl (HydrALAZINE INJ) 10 mg Q6 PRN IV. 03/13/17 09:15 04/12/17 09:14 03/18/17 10:51 10 MG Albuterol/ Ipratropium (Duoneb) 3 ml Q4R INH 03/13/17 12:00 04/12/17 11:59 03/22/17 11:09 3 ML Albuterol Sulfate (Ventolin 0.083% 2.5MG/3ML Neb) 2.5 mg Q2R PRN INH 03/13/17 10:45 04/12/17 10:44 03/18/17 17:10 2.5 MG Metoprolol Succinate (Toprol Xl Tab) 25 mg BID PO 03/13/17 14:15 04/10/17 20:59 Future Hold Enoxaparin Sodium (Lovenox Inj) 40 mg QAM SQ 03/14/17 09:00 04/13/17 08:59 Future Hold 03/21/17 08:51 40 MG Metoprolol Tartrate (Lopressor Iv) 2.5 mg Q6 IV. 03/14/17 12:00 04/13/17 11:59 03/22/17 13:43 2.5 MG Enalaprilat 2.5 mg/Dextrose 27 ml @ 100 mls/hr QID IV 03/16/17 21:00 04/15/17 20:59 03/22/17 13:42 100 MLS/HR Haloperidol Lactate (Haldol Inj) 2.5 mg Q6 PRN IM 03/16/17 18:30 04/15/17 13:44 Heparin Sodium (Porcine) (Heparin 10 Unit/ ml 5 ml Flush) 5 ml PRN PRN FLUSH 03/18/17 01:15 04/17/17 01:14 Cefazolin Sodium 60 ml @ 100 mls/hr PREOP IV 03/22/17 06:00 03/22/17 18:00 Ranitidine HCl 50 mg/Dextrose 102 ml @ 200 mls/hr Q8H IV 03/22/17 01:00 04/21/17 00:59 03/22/17 08:26 200 MLS/HR Potassium Chloride 10 meq/ Prmx 100 ml @ 100 mls/hr 1000,1100,1200,1300 IV 03/22/17 10:00 03/22/17 20:00 03/22/17 14:15 100 MLS/HR Potassium Chloride/Dextrose/ Sod Cl 1,000 ml @ 50 mls/hr Q20H IV 03/22/17 10:00 04/21/17 09:59 03/22/17 10:12 50 MLS/HR Objective Vital Signs Date Time Temp Pulse Resp B/P (MAP) Pulse Ox O2 Delivery O2 Flow Rate FiO2 03/22/17 17:33 71 20 121/69 (86) 90 Non-Rebreather 15 03/22/17 17:18 81 20 108/74 (85) 98 Non-Rebreather 15 03/22/17 15:29 36.5 76 20 137/92 (107) 98 Nasal Cannula 2 03/22/17 13:43 64 143/62 03/22/17 11:44 36.6 67 18 142/78 93 Nasal Cannula 2.0 03/22/17 11:30 36.6 64 22 146/78 (100) 96 Nasal Cannula 2.0 03/22/17 11:30 Nasal Cannula 2.0 03/22/17 11:11 55 18 93 Nasal Cannula 2.0 03/22/17 07:30 Nasal Cannula 2.0 03/22/17 07:23 73 20 96 Nasal Cannula 2.0 03/22/17 07:16 36.6 67 22 142/78 (99) 99 Nasal Cannula 2.0 03/22/17 05:35 69 135/84 03/22/17 04:00 Nasal Cannula 2.0 03/22/17 03:38 36.5 69 16 143/101 (115) 99 Nasal Cannula 2.0 135/84 (101) 03/22/17 03:31 74 20 97 Nasal Cannula 2.0 03/21/17 23:59 CPAP 03/21/17 23:49 78 03/21/17 23:31 36.3 73 20 164/89 (114) 95 BiPAP 03/21/17 23:02 84 24 96 BiPAP/CPAP 2.0 03/21/17 22:05 74 95 2.0 03/21/17 20:00 CPAP 03/21/17 19:25 62 16 97 Nasal Cannula 2.0 03/21/17 19:09 36.9 78 19 131/80 (97) 97 Nasal Cannula 2.0 03/21/17 18:43 76 143/85 Physical Exam General Appearance: no apparent distress, + pertinent finding ( Chronically ill-appearing) Eyes: normal inspection, EOMI, sclerae normal ENT: normal ENT inspection, pharynx normal Neck: supple, no adenopathy, trachea midline Respiratory/Chest: lungs clear, normal breath sounds, no respiratory distress Cardiovascular: no gallop, no murmur, + irregularly irregular Abdomen: normal bowel sounds, non tender, soft, no organomegaly Extremities: non-tender, no calf tenderness Neurologic/Psychiatric: alert, + disoriented Skin: normal color, no rash Lymphatic: no adenopathy Laboratory Results Last 24 Hours Test 03/21/17 18:11 03/21/17 18:36 03/21/17 23:55 03/22/17 06:18 Bedside Glucose 125 mg/dl 98 mg/dl Prothrombin Time 16.1 SECONDS Prothromb Time International Ratio 1.5 White Blood Count 8.40 K/uL Red Blood Count 3.61 M/uL Hemoglobin 10.9 g/dL Hematocrit 33.3 % Mean Corpuscular Volume 92.2 fL Mean Corpuscular Hemoglobin 30.2 pg Mean Corpuscular Hemoglobin Concent 32.7 g/dl RDW Standard Deviation 50.1 fL RDW Coefficient of Variation 15.4 % Platelet Count 190 K/uL Mean Platelet Volume 9.5 fL Sodium Level 135 mmol/L Potassium Level 3.3 mmol/L Chloride Level 102 mmol/L Carbon Dioxide Level 25 mmol/L Anion Gap 8.0 mmol/L Blood Urea Nitrogen 38 mg/dl Creatinine 1.10 mg/dl Est Creatinine Clear Calc Drug Dose 51.3 ml/min Estimated GFR () 70.1 Estimated GFR (Non- 60.5 BUN/Creatinine Ratio 34.6 Random Glucose 114 mg/dl Calcium Level 8.8 mg/dl Phosphorus Level 3.8 mg/dl Total Bilirubin 1.6 mg/dl Direct Bilirubin 0.7 mg/dl Aspartate Amino Transf (AST/SGOT) 164 U/L Alanine Aminotransferase (ALT/SGPT) 143 U/L Alkaline Phosphatase 163 U/L Ammonia 20.0 umol/L C-Reactive Protein 3.59 mg/dl Total Protein 5.8 gm/dl Albumin 2.9 gm/dl Prealbumin 11.5 mg/dl Assessment and Plan acute encephalopathy with seizures following what appeared to be respiratory tract infection and possible pulmonary infection. Patient treated empirically with 7 days of acyclovir. Will follow off Abx.
--- NOTE | 2017-03-22 18:23 | Anesthesiology Progress Note ---
Anesthesia Post Op Note Date & Time Mar 22, 2017 at 18:07 Vital Signs Pain Intensity: 0.0 Vital Signs Past 12 Hours Date Time Temp Pulse Resp B/P (MAP) Pulse Ox O2 Delivery O2 Flow Rate FiO2 03/22/17 18:02 63 20 116/75 (89) 91 Non-Rebreather 15 03/22/17 17:48 62 20 103/75 (84) 90 Non-Rebreather 15 03/22/17 17:45 78 18 88 Non-Rebreather 15.0 03/22/17 17:33 71 20 121/69 (86) 90 Non-Rebreather 15 03/22/17 17:18 81 20 108/74 (85) 98 Non-Rebreather 15 03/22/17 15:29 36.5 76 20 137/92 (107) 98 Nasal Cannula 2 03/22/17 13:43 64 143/62 03/22/17 11:44 36.6 67 18 142/78 93 Nasal Cannula 2.0 03/22/17 11:30 36.6 64 22 146/78 (100) 96 Nasal Cannula 2.0 03/22/17 11:30 Nasal Cannula 2.0 03/22/17 11:11 55 18 93 Nasal Cannula 2.0 03/22/17 07:30 Nasal Cannula 2.0 03/22/17 07:23 73 20 96 Nasal Cannula 2.0 03/22/17 07:16 36.6 67 22 142/78 (99) 99 Nasal Cannula 2.0 Notes Mental Status: see Notes Pt Amnestic to Procedure: Yes Nausea / Vomiting: adequately controlled Pain: adequately controlled Airway Patency, RR, SpO2: see Notes BP & HR: stable & adequate Hydration State: stable & adequate Anesthetic Complications: no major complications apparent Pt had PEG tube placement under MAC. Pt had respiratory depression and arterial oxygen desaturation which required assistance with Ambu-bag 100% O2. Improved and case was completed. In PACU, pt manifested prolonged sedation and high FiO2 requirement. SaO2 was high 80's to low 90's on NRB O2 mask. (It is noted that pt is "do not intubate " category.) Discussed with Dr. Dela Cruz and agreed to place pt back on biPAP as he was earlier during this hospitalization. Pt was given furosemide 20 mg in PACU empirically as preoperative CXR was consistent with some element of CHF. Pt tolerating biPAP in PACU with SaO2 low 90's, for return to MICU.
[2017-03-23] VITALS (15 sets, daily range): BP systolic 108–158; BP diastolic 75–105; PULSE 55–76; TEMP 36.5–37.2; O2SAT 91–100
[2017-03-23] MEDS: RANITIDINE IV 50 MG in DEXTROSE 5% 100ML 100 ML IV SCH (00:58)
[2017-03-23] MEDS: METOPROLOL TARTRATE 1 MG/ML VIAL IV. SCH ×2 (00:58→05:19)
[2017-03-23] MEDS: ALBUT/IPRATROP 3MG/0.5MG NEB 3 ML VIAL INH SCH ×6 (03:25→23:00)
[2017-03-23] MEDS: D5W AND 1/2NSS + 20MEQ KCL 1,000 ML IV SCH ×2 (05:19→17:09)
[2017-03-23] MEDS: LEVETIRACETAM IV 500 MG in DEXTROSE 5% 100ML 100 ML IV SCH ×2 (05:19→18:13)
[2017-03-23 06:39] LABS: HEMATOCRIT 31.6 % (42-52); MEAN CELL VOLUME 91.3 fL (80-100); MEAN CORPUSCULAR HEMOGLOBIN 29.5 pg (25-34); MEAN CORPUSCULAR HGB CONC 32.3 g/dl (32-36); MEAN PLATELET VOLUME 9.5 fL (7.4-10.4); PLATELET COUNT 148 K/uL (130-400); RED BLOOD COUNT 3.46 M/uL (4.7-6.1); WHITE BLOOD COUNT 8.03 K/uL (4.8-10.8)
[2017-03-23 07:06] LABS: BUN/CREATININE RATIO 31.2 (10-20); CALCIUM 8.1 mg/dl (8.5-10.1); POTASSIUM 3.3 mmol/L (3.5-5.1)
[2017-03-23 07:14] LABS: PHOSPHORUS 3.2 mg/dl (2.5-4.9)
--- NOTE | 2017-03-23 10:38 | Hospitalist Progress Note ---
Hospitalist Progress Note Date of Service Mar 23, 2017. (Mesha Montelongo ., KENRICKC) Subjective Pt evaluation today including: conversation w/ patient, conversation w/ family (daughter and son in law at bedside), physical exam, chart review, lab review, conversation w/ program consultant (spoke with Dr. Thorne), review of inpatient medication list Pain: None PO Intake: NPO, will start tube feedings today Voiding: galvez catheter in place Patient reports feeling well. He denies any pain or discomfort and denies any shortness of breath. He states that he remembers me from yesterday. The patient had been on BiPAP last night but is now back on nasal cannula. The patient denies fevers, chills, sweats, chest pain, palpitations, claudication, cough, wheezing, shortness of breath, nausea, vomiting, abdominal pain, dysuria , hematuria, urinary retention, paralysis, weakness, numbness and tingling. Additional Comments: See HPI for pertinent positives and negatives. All other systems reviewed and negative. (Mesha Montelongo ., PA-C) Objective Vital Signs Date Time Temp Pulse Resp B/P (MAP) Pulse Ox O2 Delivery O2 Flow Rate FiO2 03/23/17 07:59 36.7 69 14 140/78 (98) 96 Nasal Cannula 5.0 03/23/17 07:30 Nasal Cannula 2.0 BiPAP CPAP 03/23/17 07:08 63 18 100 BiPAP/CPAP 7.0 03/23/17 05:19 63 127/86 03/23/17 04:10 36.7 64 20 127/86 (100) 98 BiPAP 03/23/17 04:00 BiPAP 03/23/17 03:25 65 93 7.0 03/23/17 03:25 65 18 93 BiPAP/CPAP 7.0 03/23/17 00:58 77 110/65 03/23/17 00:11 37.2 55 16 110/75 (87) 97 BiPAP 03/22/17 23:59 BiPAP 03/22/17 23:11 64 18 99 BiPAP/CPAP 10.0 03/22/17 21:41 64 99 10.0 03/22/17 19:40 36.7 75 20 136/98 (111) 99 BiPAP 03/22/17 19:33 67 136/98 03/22/17 19:19 99 BiPAP 100 03/22/17 19:17 36.8 75 16 136/98 (111) 99 BiPAP 100 03/22/17 19:12 72 100 15.0 03/22/17 19:11 72 18 100 BiPAP/CPAP 15.0 03/22/17 18:30 79 94 15.0 03/22/17 18:15 67 20 123/80 (94) 91 BiPAP 6 03/22/17 18:02 63 20 116/75 (89) 91 Non-Rebreather 15 03/22/17 17:48 62 20 103/75 (84) 90 Non-Rebreather 15 03/22/17 17:45 78 18 88 Non-Rebreather 15.0 03/22/17 17:33 71 20 121/69 (86) 90 Non-Rebreather 15 03/22/17 17:18 81 20 108/74 (85) 98 Non-Rebreather 15 03/22/17 15:29 36.5 76 20 137/92 (107) 98 Nasal Cannula 2 03/22/17 13:43 64 143/62 03/22/17 11:44 36.6 67 18 142/78 93 Nasal Cannula 2.0 03/22/17 11:30 36.6 64 22 146/78 (100) 96 Nasal Cannula 2.0 03/22/17 11:30 Nasal Cannula 2.0 03/22/17 11:11 55 18 93 Nasal Cannula 2.0 (Mesha Montelongo ., PA-C) Physical Exam Notes: General appearance: +Appears chronically ill. Well-developed, well-nourished, no apparent distress Head: Normocephalic, atraumatic Eyes: Normal inspection, PERRL ENT: +Thick, white secretions improved today, pt had just been suctioned. Hearing grossly normal Neck: Supple, no JVD, trachea midline Respiratory/Chest: +Coarse breath sounds. Lungs clear to auscultation, no respiratory distress Cardiovascular: +Irregularly irregular, rate controlled. Systolic murmur. No gallop Abdomen/GI: +Hypoactive bowel sounds. PEG tube LUQ. Non-tender, soft Extremities/Musculoskeletal: Normal inspection, no calf tenderness, no pedal edema Neurological/Psych: +Fatigued, falls asleep often during visit but easily roused and is conversing. Disoriented to year but knew correct month. Recognized me from yesterday. Oriented x 2. Skin: +Ecchymoses RUE. Normal color, warm/dry, no rash (Mesha Montelongo ., PA-C) Laboratory Results Last 24 Hours Test 03/23/17 06:03 03/23/17 06:37 White Blood Count 8.03 K/uL Red Blood Count 3.46 M/uL Hemoglobin 10.2 g/dL Hematocrit 31.6 % Mean Corpuscular Volume 91.3 fL Mean Corpuscular Hemoglobin 29.5 pg Mean Corpuscular Hemoglobin Concent 32.3 g/dl RDW Standard Deviation 49.9 fL RDW Coefficient of Variation 15.7 % Platelet Count 148 K/uL Mean Platelet Volume 9.5 fL Sodium Level 140 mmol/L Potassium Level 3.3 mmol/L Chloride Level 103 mmol/L Carbon Dioxide Level 27 mmol/L Anion Gap 10.0 mmol/L Blood Urea Nitrogen 31 mg/dl Creatinine 1.00 mg/dl Est Creatinine Clear Calc Drug Dose 56.5 ml/min Estimated GFR () 78.6 Estimated GFR (Non- 67.8 BUN/Creatinine Ratio 31.2 Random Glucose 116 mg/dl Calcium Level 8.1 mg/dl Phosphorus Level 3.2 mg/dl Magnesium Level 2.1 mg/dl Total Bilirubin 1.4 mg/dl Direct Bilirubin 0.7 mg/dl Aspartate Amino Transf (AST/SGOT) 118 U/L Alanine Aminotransferase (ALT/SGPT) 104 U/L Alkaline Phosphatase 164 U/L Total Protein 5.4 gm/dl Albumin 2.6 gm/dl Bedside Glucose 109 mg/dl (Mesha Montelongo ., PA-C) Assessment and Plan 86 y/o with a history of a-fib on chronic anticoagulation, HTN, HLD, and GERD who presents to the ED on 03/11 with altered mental status and weakness. Septic/metabolic encephalopathy--improving -Admit to telemetry. No acute events overnight. Pt in a-fib with HR 60s -Multifactorial. PNA, hyponatremia stable. Check other reasons -CXR 03/20 shows congestive failure, no significant change from previous study -Ammonia improved to 20 following Bisacodyl -Repeat ABG 03/20 showed hyperventilation. Continue CPAP -Pt breathing comfortably on NC -On encephalopathy coverage per ID. Completed full course acyclovir. Completed 7 days vancomycin. Zosyn IV, day #10 -D/C Zosyn and vancomycin -Brain MRI negative -Haldol IM prn severe agitation, use sparingly Aspiration pneumonia w/acute hypoxic respiratory failure--stable -Daughter notes he gets respiratory illnesses every fall - raising suspicion of baseline allergic or pulmonary diseases; however, aspiration appears dominant piece of picture -D/C abx 03/21 -Continue nebs/pulmonary toilet -Continue supportive care -Will need to be medically stable from PNA before proceeding with endoscopic procedures at [facility] -Consult pulm, appreciate recs: Last ABG consistent with hyperventilation, continue CPAP Pulmonary edema -Echo 03/12/17 LVEF 55-60%, no WMA. No diastolic dysfunction noted. -Lasix 20 mg IV qd Dysphagia/aspiration due to Zenker's diverticulum and possibly esophageal dysmotility--ongoing -NPO -GI consulted, appreciate recs: PEG placed 03/22. Spoke with Dr. Thorne, recommend waiting at 48-72 hours before resuming Xarelto. Could start therapeutic Lovenox 24 hours after procedure as more easily reversed. -Start tube feedings today per sas clinical programmer. Impact with goal of 80 cc/hr. Will start slowly at 10 cc/hr, titrate by 5 cc/hr q4h -LFTs continue to trend down -Liver ultrasound shows gallbladder wall thickening and sludge, findings equivocal for cholecystitis -Unable to obtain HIDA. Pt cannot clear secretions when laying flat -Pt will likely need a stay at [facility] to get stronger first, then transfer to [facility] for endoscopic tx of Zenker diverticulum Prolonged poor PO intake/acute protein-calorie malnutrition -Unable to pass NGT. TPN d/c'd. 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 Likely due to combined physiologic and neurologic stressors from all of above -Empiric Keppra 500 mg IV BID. Continue through hospitalization and early part of recovery, possibly longer A-fib--stable, rate controlled -Xarelto held due to NPO status, resume 48-72 hours after procedure Hypertension--stable -Convert home PO meds to PEG, d/c IV HTN meds -D/C-Vasotec 2.5 mg IV QID, Lopressor 2.5 mg IV q6h -Continue lisinopril 2.5 mg PEG qd, Lopressor 25 mg PEG BID -Cover with hydralazine 10 mg IV q6h prn SBP >180 Hyperlipidemia -Resume atorvastatin 40 mg PEG qd 5 cm aneurysm -Prior hospitalist made family aware. Outpt f/u DVT prophylaxis -Therapeutic Lovenox 1 mg/kg SC q12h starting tonight -SCDs Code Status -Level V, DO NOT RESUSCITATE (Mesha Montelongo, DU) Reviewed: Pt Seen/Exam by Me (Aneta Dela Cruz MD) History Physician Movie Shot Camera Operator Supervision Note: I interviewed and examined the patient. Discussed with BRET Montelongo and agree with findings and plan as documented in the note. Any exceptions or clarifications are listed here: Pt with a remarkable turnaround todya. he is clearly awake, alert, oriented, carrying on a normal conversation. Denies pain, says he is very pleased to be getting PEG feeds. No concerns, no Helio-Shrestha breathing Tele reviewed, Vitals reviewed lying in bed, awake, alert, oriented irreg irreg, 2/6 BRANDT at LLSB Lungs with decreased BS at bases bt otherwise much clearer Abd +BS, soft, NT ND, dressing over PEG tube in place is c/d/i Ext trace pitting edema Pt is an 86 yo male here with acute metabolic encephalopathy secondary to aspiration PNA, with Zenker's diverticulum and esophageal dysmotility. Now off TPN and had PEG tube placed. Mental status remarkably improved today. Started PEG feeds. 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 -Appreciate Pulmonary input -continue bowel regimen with Bisacodyl suppos prn, can add docusate to PEG encephalopathy evaluation included EEG, CT head, brain MRI, no other source of infection found, hyponatremia improved, likely due to infection--> now completely resolved -PEG tube placed and began enteral feeds slowly, Watch for refeeding syndrome, check daily lytes and LFTs Acute on chronic diastolic CHF-ECHO with suspected pulm HTN and decreased collapsibility of IVC. Diuresing nicely now -continue CPAP for respiratory support if needed -continue diuresis with IV lasix daily given markedly positive net balance of fluid and evidence of pulm edema on CXR, follow I/Os -repeat CXR in AM -dc IVFs now that receiving PEG feeds Chronic [id number] on hold for procedures, rate controlled with metoprolol -restart Xarelto in 2 days as per GI with recent PEG tube placement -ok to start full dose Lovenox this evening Helio Shrestha respirations-central vs cardiac issues--> completely resolved with resolution of encephalopathy -Lovenox SQ full dose AC tonight Dispo-discussed at length with daughter today on phone, with remarkable improvement, considering transfer to SNF near one of his children-will d/w CM Documented By: Aneta Dela Cruz (Aneta Dela Cruz MD)
--- NOTE | 2017-03-23 10:44 | Pulmonology Progress Note ---
Pulmonary Progress Note Date of Service Mar 23, 2017. Attending Dr. Schmitt Subjective Patient seen and examined at bedside. He has no complaints feels well. Daughter is visiting at bedside. He is s/p post peg placement yesterday. Objective VS reviewed. Tm 37.2, BP 110/65-140/78, P 55-77. RR 14-20, Pulse 93-100% on 2- 7L NC General: AAOx2, NAD, speaking in full sentences, NAD respiratory distsress Head: Normocephalic, Atraumatic on nasal canula. ENT: No discharge, EOMI, Sclera normal Neck: Trachea midline. No stridor, dressing on right neck Respiratory: Good air entry bilaterally, crackles at bases. Cardiovascular: Regular rate and rhythm. Abdomen: Peg tube in place with dressing covering abdomen, soft/mildly tender to palpation Labs reviewed Imaging reviewed and viewed by me Medications reviewed Assessment & Plan Encephalopathy--resolved. Acute hypoxic respiratory failure--improving Aspiration pneumonia/Hospital Acquired Pneumonia Zenker's diverticulum Afib Patient's encephalopathy is most likely multifactorial in nature, however he has had a marked improvement over the last several days. He is s/p PEG placement POD #1 He is now alert and orientated. He still may have episodes of sundowning in the evening. He is still requiring supplemental oxygen, but is saturating well. Taper as tolerated From a respiratory standpoint, he is stable. -Continue with supplemental oxygenation to maintain between 88-92%. -Continue to use BIPAP at night -Continue with bronchodilators prn -replete electrolytes per medicine team I will sign of the case for now. Please call me if you have any questions or concerns. Data Medications: Current Inpatient Medications Medications (Trade) Dose Ordered Sig/Tanesha Route Start Time Stop Time Status Last Admin Dose Admin Acetaminophen (Tylenol Tab) 650 mg Q4H PRN PO 03/11/17 16:45 04/10/17 16:44 Future Hold Ondansetron HCl (Zofran Inj) 4 mg Q6H PRN IV 03/11/17 16:45 04/10/17 16:44 Atorvastatin Calcium (Lipitor Tab) 40 mg QPM PO 03/11/17 21:00 04/10/17 20:59 Future Hold Cetirizine HCl (zyrTEC TAB) 10 mg QPM PO 03/11/17 21:00 04/10/17 20:59 Future Hold Docusate Sodium (coLACE CAP) 100 mg BID PO 03/11/17 21:00 04/10/17 20:59 Future Hold Finasteride (Proscar Tab) 5 mg QPM PO 03/11/17 21:00 04/10/17 20:59 Future Hold Lisinopril (Zestril Tab) 2.5 mg QAM PO 03/12/17 09:00 04/11/17 08:59 Future Hold Ferrous Sulfate (Feosol Tab) 325 mg BID PO 03/11/17 21:00 04/10/17 20:59 Future Hold Levetiracetam 500 mg/Dextrose 105 ml @ 420 mls/hr Q12@0600,1800 IV 03/12/17 06:00 04/11/17 05:59 03/23/17 05:19 420 MLS/HR Hydralazine HCl (HydrALAZINE INJ) 10 mg Q6 PRN IV. 03/13/17 09:15 04/12/17 09:14 03/18/17 10:51 10 MG Albuterol/ Ipratropium (Duoneb) 3 ml Q4R INH 03/13/17 12:00 04/12/17 11:59 03/23/17 07:08 3 ML Albuterol Sulfate (Ventolin 0.083% 2.5MG/3ML Neb) 2.5 mg Q2R PRN INH 03/13/17 10:45 04/12/17 10:44 03/18/17 17:10 2.5 MG Metoprolol Succinate (Toprol Xl Tab) 25 mg BID PO 03/13/17 14:15 04/10/17 20:59 Future Hold Enoxaparin Sodium (Lovenox Inj) 40 mg QAM SQ 03/14/17 09:00 04/13/17 08:59 Future Hold 03/21/17 08:51 40 MG Metoprolol Tartrate (Lopressor Iv) 2.5 mg Q6 IV. 03/14/17 12:00 04/13/17 11:59 03/23/17 05:19 2.5 MG Enalaprilat 2.5 mg/Dextrose 27 ml @ 100 mls/hr QID IV 03/16/17 21:00 04/15/17 20:59 03/22/17 21:05 100 MLS/HR Haloperidol Lactate (Haldol Inj) 2.5 mg Q6 PRN IM 03/16/17 18:30 04/15/17 13:44 Heparin Sodium (Porcine) (Heparin 10 Unit/ ml 5 ml Flush) 5 ml PRN PRN FLUSH 03/18/17 01:15 04/17/17 01:14 Ranitidine HCl 50 mg/Dextrose 102 ml @ 200 mls/hr Q8H IV 03/22/17 01:00 04/21/17 00:59 03/23/17 00:58 200 MLS/HR Potassium Chloride/Dextrose/ Sod Cl 1,000 ml @ 50 mls/hr Q20H IV 03/22/17 10:00 04/21/17 09:59 03/23/17 05:19 50 MLS/HR Potassium Chloride 10 meq/ Prmx 100 ml @ 100 mls/hr Q1H IV 03/23/17 08:45 03/23/17 12:44 Furosemide 20 mg/ Syringe 2 ml @ 4 mls/min QAM IV 03/23/17 09:00 04/22/17 08:59 Enteral Nutritional Formula (Impact 1.0 Julio Cesar) 1,000 ml UD PRN PEG 03/23/17 09:00 04/22/17 08:59 Vital Signs: Date Time Temp Pulse Resp B/P (MAP) Pulse Ox O2 Delivery O2 Flow Rate FiO2 03/23/17 07:59 36.7 69 14 140/78 (98) 96 Nasal Cannula 5.0 03/23/17 07:30 Nasal Cannula 2.0 BiPAP CPAP 03/23/17 07:08 63 18 100 BiPAP/CPAP 7.0 03/23/17 05:19 63 127/86 03/23/17 04:10 36.7 64 20 127/86 (100) 98 BiPAP 03/23/17 04:00 BiPAP 03/23/17 03:25 65 93 7.0 03/23/17 03:25 65 18 93 BiPAP/CPAP 7.0 03/23/17 00:58 77 110/65 03/23/17 00:11 37.2 55 16 110/75 (87) 97 BiPAP 03/22/17 23:59 BiPAP 03/22/17 23:11 64 18 99 BiPAP/CPAP 10.0 03/22/17 21:41 64 99 10.0 03/22/17 19:40 36.7 75 20 136/98 (111) 99 BiPAP 03/22/17 19:33 67 136/98 03/22/17 19:19 99 BiPAP 100 03/22/17 19:17 36.8 75 16 136/98 (111) 99 BiPAP 100 03/22/17 19:12 72 100 15.0 03/22/17 19:11 72 18 100 BiPAP/CPAP 15.0 03/22/17 18:30 79 94 15.0 03/22/17 18:15 67 20 123/80 (94) 91 BiPAP 6 03/22/17 18:02 63 20 116/75 (89) 91 Non-Rebreather 15 03/22/17 17:48 62 20 103/75 (84) 90 Non-Rebreather 15 03/22/17 17:45 78 18 88 Non-Rebreather 15.0 03/22/17 17:33 71 20 121/69 (86) 90 Non-Rebreather 15 03/22/17 17:18 81 20 108/74 (85) 98 Non-Rebreather 15 03/22/17 15:29 36.5 76 20 137/92 (107) 98 Nasal Cannula 2 03/22/17 13:43 64 143/62 03/22/17 11:44 36.6 67 18 142/78 93 Nasal Cannula 2.0 03/22/17 11:30 36.6 64 22 146/78 (100) 96 Nasal Cannula 2.0 03/22/17 11:30 Nasal Cannula 2.0 03/22/17 11:11 55 18 93 Nasal Cannula 2.0 Laboratory Results: Last 24 Hours Test 03/23/17 06:03 03/23/17 06:37 White Blood Count 8.03 K/uL Red Blood Count 3.46 M/uL Hemoglobin 10.2 g/dL Hematocrit 31.6 % Mean Corpuscular Volume 91.3 fL Mean Corpuscular Hemoglobin 29.5 pg Mean Corpuscular Hemoglobin Concent 32.3 g/dl RDW Standard Deviation 49.9 fL RDW Coefficient of Variation 15.7 % Platelet Count 148 K/uL Mean Platelet Volume 9.5 fL Sodium Level 140 mmol/L Potassium Level 3.3 mmol/L Chloride Level 103 mmol/L Carbon Dioxide Level 27 mmol/L Anion Gap 10.0 mmol/L Blood Urea Nitrogen 31 mg/dl Creatinine 1.00 mg/dl Est Creatinine Clear Calc Drug Dose 56.5 ml/min Estimated GFR () 78.6 Estimated GFR (Non- 67.8 BUN/Creatinine Ratio 31.2 Random Glucose 116 mg/dl Calcium Level 8.1 mg/dl Phosphorus Level 3.2 mg/dl Magnesium Level 2.1 mg/dl Total Bilirubin 1.4 mg/dl Direct Bilirubin 0.7 mg/dl Aspartate Amino Transf (AST/SGOT) 118 U/L Alanine Aminotransferase (ALT/SGPT) 104 U/L Alkaline Phosphatase 164 U/L Total Protein 5.4 gm/dl Albumin 2.6 gm/dl Bedside Glucose 109 mg/dl
[2017-03-23] MEDS: ENALAPRILAT IV 2.5 MG in DEXTROSE 5% 25ML 25 ML IV SCH (10:57)
[2017-03-23] MEDS: POTASSIUM CHLR 10 MEQ / WTR 10 MEQ in PREMIXED WATER 100 ML IV SCH ×4 (10:59→15:03)
[2017-03-23] MEDS: FUROSEMIDE INJ 20 MG in SYRINGE 0 ML IV SCH (11:06)
[2017-03-23] MEDS: IMPACT LIQ 1000 ML BAG PEG PRN (11:15)
--- NOTE | 2017-03-23 11:33 | Critical Care Consultation ---
Critical Care Consultation Date of Consultation: Mar 21, 2017. Attending Physician: Aneta Dela Cruz MD Reason for Consultation: Possible catheter placement for TPN administration. History of Present Illness Patient is an 86-year-old male with a significant past medical history for a Zenker's diverticulum esophageal dysmotility and silent aspiration. He has been unable to take food by mouth due to aspiration. We have been requested to evaluate the patient for possible central venous catheter placement for TPN administration. Family History GI malignancy Social History Smoking Status: Never Smoker Smokeless Tobacco Use: No Alcohol Use: occasionally Drug Use: none Marital Status: Housing Status: assisted living Occupation Status: retired Allergies Coded Allergies: No Known Allergies (Verified , 03/11/17) Home Medications Scheduled Atorvastatin (Lipitor), 40 MG PO QPM Cetirizine (Zyrtec), 10 MG PO QPM Docusate Sodium (Docusate Sodium), 100 MG PO BID Ferrous Sulfate (Kp Ferrous Sulfate), 325 MG PO BID Finasteride (Proscar), 5 MG PO QPM Hydrocortisone 2.5% (Rectal) (Anusol-Hc 2.5%), 1 APPLN TOP BID Levofloxacin (Levaquin), 750 MG PO DAILY Lisinopril (Zestril), 2.5 MG PO QAM Magnesium Oxide (Mag-Ox), 400 MG PO QAM Metoprolol Succinate (Toprol Xl), 25 MG PO QPM Pantoprazole (Protonix), 40 MG PO BID Rivaroxaban (Xarelto), 15 MG PO QPM Wheat Dextrin (Benefiber Drink Mix), 2 TSP PO DAILY Scheduled PRN Dextromethorphan-Guaifenesin (Guaifenesin Dm), 10 ML PO Q4H PRN for Cough Echinacea (Echinacea), 400 MG PO TID PRN for URI Current Inpatient Medications Current Inpatient Medications Medications (Trade) Dose Ordered Sig/Tanesha Route Start Time Stop Time Status Last Admin Dose Admin Ondansetron HCl (Zofran Inj) 4 mg Q6H PRN IV 03/11/17 16:45 04/10/17 16:44 Ferrous Sulfate (Feosol Tab) 325 mg BID PO 03/11/17 21:00 04/10/17 20:59 Future Hold Levetiracetam 500 mg/Dextrose 105 ml @ 420 mls/hr Q12@0600,1800 IV 03/12/17 06:00 04/11/17 05:59 03/23/17 05:19 420 MLS/HR Hydralazine HCl (HydrALAZINE INJ) 10 mg Q6 PRN IV. 03/13/17 09:15 04/12/17 09:14 03/18/17 10:51 10 MG Albuterol/ Ipratropium (Duoneb) 3 ml Q4R INH 03/13/17 12:00 04/12/17 11:59 03/23/17 07:08 3 ML Albuterol Sulfate (Ventolin 0.083% 2.5MG/3ML Neb) 2.5 mg Q2R PRN INH 03/13/17 10:45 04/12/17 10:44 03/18/17 17:10 2.5 MG Haloperidol Lactate (Haldol Inj) 2.5 mg Q6 PRN IM 03/16/17 18:30 04/15/17 13:44 Heparin Sodium (Porcine) (Heparin 10 Unit/ ml 5 ml Flush) 5 ml PRN PRN FLUSH 03/18/17 01:15 04/17/17 01:14 Potassium Chloride/Dextrose/ Sod Cl 1,000 ml @ 50 mls/hr Q20H IV 03/22/17 10:00 04/21/17 09:59 03/23/17 05:19 50 MLS/HR Potassium Chloride 10 meq/ Prmx 100 ml @ 100 mls/hr Q1H IV 03/23/17 08:45 03/23/17 12:44 03/23/17 10:59 100 MLS/HR Furosemide 20 mg/ Syringe 2 ml @ 4 mls/min QAM IV 03/23/17 09:00 04/22/17 08:59 03/23/17 11:06 4 MLS/MIN Enteral Nutritional Formula (Impact 1.0 Julio Cesar) 1,000 ml UD PRN PEG 03/23/17 09:00 04/22/17 08:59 03/23/17 11:15 1,000 ML Lisinopril (Zestril Tab) 2.5 mg QAM PEG 03/24/17 09:00 04/23/17 08:59 Lisinopril (Zestril Tab) 2.5 mg 1054 ONCE PEG 03/23/17 10:54 03/23/17 10:55 UNV Atorvastatin Calcium (Lipitor Tab) 40 mg QAM PEG 03/24/17 09:00 04/23/17 08:59 Finasteride (Proscar Tab) 5 mg QAM PEG 03/24/17 09:00 04/23/17 08:59 Metoprolol Tartrate (Lopressor Tab) 25 mg BID PEG 03/23/17 21:00 04/22/17 20:59 UNV Ranitidine HCl (zANTac TAB) 150 mg BID GT 03/23/17 21:00 04/22/17 20:59 UNV Enoxaparin Sodium (Lovenox Inj) 90 mg Q12 SQ 03/23/17 12:00 04/22/17 11:59 Physical Exam Date Time Temp Pulse Resp B/P (MAP) Pulse Ox O2 Delivery O2 Flow Rate FiO2 03/23/17 11:09 36.5 71 14 127/75 (92) 91 Nasal Cannula 2.0 03/23/17 07:59 36.7 69 14 140/78 (98) 96 Nasal Cannula 5.0 03/23/17 07:30 Nasal Cannula 2.0 BiPAP CPAP 03/23/17 07:08 63 18 100 BiPAP/CPAP 7.0 03/23/17 05:19 63 127/86 03/23/17 04:10 36.7 64 20 127/86 (100) 98 BiPAP 03/23/17 04:00 BiPAP 03/23/17 03:25 65 93 7.0 03/23/17 03:25 65 18 93 BiPAP/CPAP 7.0 03/23/17 00:58 77 110/65 03/23/17 00:11 37.2 55 16 110/75 (87) 97 BiPAP 03/22/17 23:59 BiPAP 03/22/17 23:11 64 18 99 BiPAP/CPAP 10.0 03/22/17 21:41 64 99 10.0 03/22/17 19:40 36.7 75 20 136/98 (111) 99 BiPAP 03/22/17 19:33 67 136/98 03/22/17 19:19 99 BiPAP 100 03/22/17 19:17 36.8 75 16 136/98 (111) 99 BiPAP 100 03/22/17 19:12 72 100 15.0 03/22/17 19:11 72 18 100 BiPAP/CPAP 15.0 03/22/17 18:30 79 94 15.0 03/22/17 18:15 67 20 123/80 (94) 91 BiPAP 6 03/22/17 18:02 63 20 116/75 (89) 91 Non-Rebreather 15 03/22/17 17:48 62 20 103/75 (84) 90 Non-Rebreather 15 03/22/17 17:45 78 18 88 Non-Rebreather 15.0 03/22/17 17:33 71 20 121/69 (86) 90 Non-Rebreather 15 03/22/17 17:18 81 20 108/74 (85) 98 Non-Rebreather 15 03/22/17 15:29 36.5 76 20 137/92 (107) 98 Nasal Cannula 2 03/22/17 13:43 64 143/62 03/22/17 11:44 36.6 67 18 142/78 93 Nasal Cannula 2.0 03/22/17 11:30 36.6 64 22 146/78 (100) 96 Nasal Cannula 2.0 03/22/17 11:30 Nasal Cannula 2.0 Laboratory Results Last 24 Hours Test 03/23/17 06:03 03/23/17 06:37 White Blood Count 8.03 K/uL Red Blood Count 3.46 M/uL Hemoglobin 10.2 g/dL Hematocrit 31.6 % Mean Corpuscular Volume 91.3 fL Mean Corpuscular Hemoglobin 29.5 pg Mean Corpuscular Hemoglobin Concent 32.3 g/dl RDW Standard Deviation 49.9 fL RDW Coefficient of Variation 15.7 % Platelet Count 148 K/uL Mean Platelet Volume 9.5 fL Sodium Level 140 mmol/L Potassium Level 3.3 mmol/L Chloride Level 103 mmol/L Carbon Dioxide Level 27 mmol/L Anion Gap 10.0 mmol/L Blood Urea Nitrogen 31 mg/dl Creatinine 1.00 mg/dl Est Creatinine Clear Calc Drug Dose 56.5 ml/min Estimated GFR () 78.6 Estimated GFR (Non- 67.8 BUN/Creatinine Ratio 31.2 Random Glucose 116 mg/dl Calcium Level 8.1 mg/dl Phosphorus Level 3.2 mg/dl Magnesium Level 2.1 mg/dl Total Bilirubin 1.4 mg/dl Direct Bilirubin 0.7 mg/dl Aspartate Amino Transf (AST/SGOT) 118 U/L Alanine Aminotransferase (ALT/SGPT) 104 U/L Alkaline Phosphatase 164 U/L Total Protein 5.4 gm/dl Albumin 2.6 gm/dl Bedside Glucose 109 mg/dl Assessment & Plan I reviewed the consult notes as well as relevant labs. I discussed this case with Dr. Dela Cruz of the hospitalist service. The patient has not taken nutrition by mouth for approximately 10 days, and the patient is at known risk for aspiration. The patient does not have short bowel syndrome, gastrointestinal fistula, require prolonged bowel rest, or severe malnutrition without possible enteral therapy. In my opinion the patient would most benefit from PEG tube placement for enteral feedings to maintain good integrity as well as avoid infectious risks associated with central venous access and TPN administration. In discussion with the hospitalist service these options will be further elucidated with the family and if not felt a candidate for possible PEG tube would consider central venous access when all other options have been exhausted.
[2017-03-23] MEDS ORDERED: LISINOPRIL 2.5 MG TAB PEG ONE (11:45)
[2017-03-23] MEDS: ENOXAPARIN 100 MG/1ML SYR SQ SCH ×2 (12:41→21:30)
--- NOTE | 2017-03-23 18:18 | Infectious Disease Progress Nt ---
Progress Note Date of Service Mar 23, 2017. Subjective Pt evaluation today including: conversation w/ patient, physical exam, chart review, lab review, review of studies, conversation w/ applications development consultant, review of inpatient medication list Patient appears comfortable in offers no new complaints today. Remains afebrile off all antibiotics. Mental status about the same. All Other Systems: Reviewed and Negative Medications Current Inpatient Medications Medications (Trade) Dose Ordered Sig/Tanesha Route Start Time Stop Time Status Last Admin Dose Admin Ondansetron HCl (Zofran Inj) 4 mg Q6H PRN IV 03/11/17 16:45 04/10/17 16:44 Ferrous Sulfate (Feosol Tab) 325 mg BID PO 03/11/17 21:00 04/10/17 20:59 Future Hold Levetiracetam 500 mg/Dextrose 105 ml @ 420 mls/hr Q12@0600,1800 IV 03/12/17 06:00 04/11/17 05:59 03/23/17 18:13 420 MLS/HR Hydralazine HCl (HydrALAZINE INJ) 10 mg Q6 PRN IV. 03/13/17 09:15 04/12/17 09:14 03/18/17 10:51 10 MG Albuterol/ Ipratropium (Duoneb) 3 ml Q4R INH 03/13/17 12:00 04/12/17 11:59 03/23/17 15:43 3 ML Albuterol Sulfate (Ventolin 0.083% 2.5MG/3ML Neb) 2.5 mg Q2R PRN INH 03/13/17 10:45 04/12/17 10:44 03/18/17 17:10 2.5 MG Haloperidol Lactate (Haldol Inj) 2.5 mg Q6 PRN IM 03/16/17 18:30 04/15/17 13:44 Heparin Sodium (Porcine) (Heparin 10 Unit/ ml 5 ml Flush) 5 ml PRN PRN FLUSH 03/18/17 01:15 04/17/17 01:14 Potassium Chloride/Dextrose/ Sod Cl 1,000 ml @ 50 mls/hr Q20H IV 03/22/17 10:00 04/21/17 09:59 03/23/17 17:09 50 MLS/HR Furosemide 20 mg/ Syringe 2 ml @ 4 mls/min QAM IV 03/23/17 09:00 04/22/17 08:59 03/23/17 11:06 4 MLS/MIN Enteral Nutritional Formula (Impact 1.0 Julio Cesar) 1,000 ml UD PRN PEG 03/23/17 09:00 04/22/17 08:59 03/23/17 11:15 1,000 ML Lisinopril (Zestril Tab) 2.5 mg QAM PEG 03/24/17 09:00 04/23/17 08:59 Atorvastatin Calcium (Lipitor Tab) 40 mg QAM PEG 03/24/17 09:00 04/23/17 08:59 Finasteride (Proscar Tab) 5 mg QAM PEG 03/24/17 09:00 04/23/17 08:59 Metoprolol Tartrate (Lopressor Tab) 25 mg BID PEG 03/23/17 21:00 04/22/17 20:59 Ranitidine HCl (zANTac TAB) 150 mg BID GT 03/23/17 21:00 04/22/17 20:59 Enoxaparin Sodium (Lovenox Inj) 90 mg Q12 SQ 03/23/17 12:00 04/22/17 11:59 03/23/17 12:41 90 MG Objective Vital Signs Date Time Temp Pulse Resp B/P (MAP) Pulse Ox O2 Delivery O2 Flow Rate FiO2 03/23/17 16:00 Nasal Cannula 2.0 03/23/17 15:43 37.0 67 16 108/75 (86) 97 Nasal Cannula 2.0 03/23/17 14:43 64 18 96 Nasal Cannula 3.0 03/23/17 14:36 95 Nasal Cannula 2.0 03/23/17 11:30 Nasal Cannula 2.0 BiPAP CPAP 03/23/17 11:21 67 18 100 Nasal Cannula 4.0 03/23/17 11:09 36.5 71 14 127/75 (92) 91 Nasal Cannula 2.0 03/23/17 07:59 36.7 69 14 140/78 (98) 96 Nasal Cannula 5.0 03/23/17 07:30 Nasal Cannula 2.0 BiPAP CPAP 03/23/17 07:08 63 18 100 BiPAP/CPAP 7.0 03/23/17 05:19 63 127/86 03/23/17 04:10 36.7 64 20 127/86 (100) 98 BiPAP 03/23/17 04:00 BiPAP 03/23/17 03:25 65 93 7.0 03/23/17 03:25 65 18 93 BiPAP/CPAP 7.0 03/23/17 00:58 77 110/65 03/23/17 00:11 37.2 55 16 110/75 (87) 97 BiPAP 03/22/17 23:59 BiPAP 03/22/17 23:11 64 18 99 BiPAP/CPAP 10.0 03/22/17 21:41 64 99 10.0 03/22/17 19:40 36.7 75 20 136/98 (111) 99 BiPAP 03/22/17 19:33 67 136/98 03/22/17 19:19 99 BiPAP 100 03/22/17 19:17 36.8 75 16 136/98 (111) 99 BiPAP 100 03/22/17 19:12 72 100 15.0 03/22/17 19:11 72 18 100 BiPAP/CPAP 15.0 03/22/17 18:30 79 94 15.0 Physical Exam General Appearance: no apparent distress, + pertinent finding ( Chronically ill-appearing) Eyes: normal inspection, EOMI, sclerae normal ENT: normal ENT inspection, pharynx normal Neck: supple, no adenopathy, trachea midline Respiratory/Chest: chest non-tender, lungs clear, normal breath sounds, no respiratory distress Cardiovascular: regular rate, rhythm, no gallop, no murmur Abdomen: normal bowel sounds, non tender, soft, no organomegaly Extremities: non-tender, no calf tenderness Neurologic/Psychiatric: + disoriented Skin: normal color, warm/dry, no rash Lymphatic: no adenopathy Laboratory Results Last 24 Hours Test 03/23/17 06:03 03/23/17 06:37 White Blood Count 8.03 K/uL Red Blood Count 3.46 M/uL Hemoglobin 10.2 g/dL Hematocrit 31.6 % Mean Corpuscular Volume 91.3 fL Mean Corpuscular Hemoglobin 29.5 pg Mean Corpuscular Hemoglobin Concent 32.3 g/dl RDW Standard Deviation 49.9 fL RDW Coefficient of Variation 15.7 % Platelet Count 148 K/uL Mean Platelet Volume 9.5 fL Sodium Level 140 mmol/L Potassium Level 3.3 mmol/L Chloride Level 103 mmol/L Carbon Dioxide Level 27 mmol/L Anion Gap 10.0 mmol/L Blood Urea Nitrogen 31 mg/dl Creatinine 1.00 mg/dl Est Creatinine Clear Calc Drug Dose 56.5 ml/min Estimated GFR () 78.6 Estimated GFR (Non- 67.8 BUN/Creatinine Ratio 31.2 Random Glucose 116 mg/dl Calcium Level 8.1 mg/dl Phosphorus Level 3.2 mg/dl Magnesium Level 2.1 mg/dl Total Bilirubin 1.4 mg/dl Direct Bilirubin 0.7 mg/dl Aspartate Amino Transf (AST/SGOT) 118 U/L Alanine Aminotransferase (ALT/SGPT) 104 U/L Alkaline Phosphatase 164 U/L Total Protein 5.4 gm/dl Albumin 2.6 gm/dl Bedside Glucose 109 mg/dl Assessment and Plan acute encephalopathy with seizures following what appeared to be respiratory tract infection and possible pulmonary infection. Patient treated empirically with 7 days of acyclovir and antibiotics, and appears stable off all antimicrobial therapy. Therefore will discontinue daily infectious disease follow-up at this time. Please contact us if further Infectious Disease follow- up necessary. Thank you.
--- NOTE | 2017-03-23 19:11 | GASTROENTEROLOGY PROGRESS NOTE ---
DATE: 03/23/2017 SUBJECTIVE: Chart was reviewed and patient was examined. The patient is clearly more alert than he had been over the last several days. His respiratory status seems comfortable. He underwent PEG tube placement yesterday and tube feeds have begun without difficulty. There is no pain in the abdomen. There are no reports of fevers or shaking chills according to the patient or his family who were present today. The goal is to get feeding tubes up to 80 mL an hour, which would provide approximately 2000 calories a day. MEDICATIONS: Reviewed. The patient continues on lisinopril, atorvastatin, finasteride, metoprolol, ranitidine, Lovenox, furosemide, heparin, breathing treatments withcnebulizers and anticonvulsant. ALLERGIES: No known drug allergies. REVIEW OF SYSTEMS: Otherwise noncontributory. PHYSICAL EXAMINATION: VITAL SIGNS: Today and overnight; the patient is currently afebrile 37, blood pressure 108/75, respirations 16 and heart rate 67. The patient is 97% on 2 liters nasal cannula. The patient had no fever over the past 48 hours. GENERAL: The patient is awake, alert, oriented, is actually speaking and asking appropriate questions. HEART: Normal S1, S2. LUNGS: Clear to auscultation. ABDOMEN: Soft, flat, nontender and nondistended with good bowel sounds. The PEG tube site is intact and dry. There is tube feed flowing through the tube. Abdomen is with positive bowel sounds. EXTREMITIES: Without clubbing, cyanosis or edema. RECTAL: Deferred. IMPRESSION AND PLAN: The patient with successful PEG tube placement yesterday with tube feeds, with a goal of 80 mL an hour. At some point, once the patient's cardiopulmonary status is optimized and the patient is at some time for nutritional support to be optimized, reassessment for possible myotomy for his Zenker's diverticulum can be considered. Dr. Lowery will be rounding tomorrow and, if Dr. Senior who has been contacted about the myotomy who performs these at [facility] may be able to answer additional questions and review the patient's progress over the weekend if he is covering for the weekend. If not, this can be continued with aspiration precautions during tube feeds and the patient can have an assessment with Dr. Lowery in the office over the next 1-2 weeks to decide if myotomy for his Zenker's as well as any other motility workup is needed. All questions were answered for the patient and his family. ZORA
[2017-03-23] MEDS ORDERED: ENOXAPARIN 1 MG/KG SQ SCH (21:00)
[2017-03-23] MEDS ORDERED: PANTOprazole SOD 40 MG TAB PEG SCH (21:00)
[2017-03-23] MEDS: DOCUSATE SODIUM 100 MG/10 ML UDC PEG SCH (21:30)
[2017-03-23] MEDS: METOPROLOL TARTRATE 25 MG TAB PEG SCH (21:31)
[2017-03-23] MEDS: RANITIDINE HCL 150 MG TAB GT SCH (21:31)
[2017-03-24] VITALS (13 sets, daily range): BP systolic 134–154; BP diastolic 87–95; PULSE 55–85; TEMP 36.5–37.1; O2SAT 92–100
[2017-03-24] MEDS: ALBUT/IPRATROP 3MG/0.5MG NEB 3 ML VIAL INH SCH ×6 (03:12→23:22)
[2017-03-24] MEDS: LEVETIRACETAM IV 500 MG in DEXTROSE 5% 100ML 100 ML IV SCH ×2 (05:37→16:57)
[2017-03-24 07:14] LABS: HEMATOCRIT 34.8 % (42-52); MEAN CELL VOLUME 92.8 fL (80-100); MEAN CORPUSCULAR HEMOGLOBIN 30.4 pg (25-34); MEAN CORPUSCULAR HGB CONC 32.8 g/dl (32-36); MEAN PLATELET VOLUME 9.2 fL (7.4-10.4); PLATELET COUNT 139 K/uL (130-400); RED BLOOD COUNT 3.75 M/uL (4.7-6.1); WHITE BLOOD COUNT 6.75 K/uL (4.8-10.8)
[2017-03-24 07:47] LABS: BUN/CREATININE RATIO 31.3 (10-20); CALCIUM 8.3 mg/dl (8.5-10.1); CREATININE 0.9 mg/dl (0.60-1.40); MAGNESIUM 2.2 mg/dl (1.8-2.4); POTASSIUM 3.3 mmol/L (3.5-5.1)
--- NOTE | 2017-03-24 07:57 | DIAGNOSTIC IMAGING REPORT ---
CHEST ONE VIEW PORTABLE CLINICAL HISTORY: 86 years-old Male presenting with f/u pleural effusion. TECHNIQUE: Portable upright AP view of the chest was obtained. COMPARISON: 03/20/2017. FINDINGS: Left-sided pacer with lead to the right ventricular apex. Atherosclerosis of the aortic arch. Cardiac silhouette remains enlarged. Persistent bibasilar hazy opacities likely with bilateral small pleural effusions. There may be slightly improved aeration at the left lung base. Degenerative changes of the thoracic spine. Multiple external leads overlie the abdomen degrading evaluation. IMPRESSION: 1. Cardiomegaly with persistent findings of pulmonary edema and small bilateral pleural effusions. Electronically signed by: Demetris Patton M.D. 03/24/2017 7:55 AM Dictated Date/Time: 03/24/2017 7:54 AM
[2017-03-24 08:00] LABS: PHOSPHORUS 2.5 mg/dl (2.5-4.9)
[2017-03-24] MEDS ORDERED: POTASSIUM CHLORIDE 20 MEQ/15 ML UDC PEG ONE (08:45)
[2017-03-24] MEDS ORDERED: ATORVASTATIN 40 MG TAB PEG SCH (09:00)
[2017-03-24] MEDS: FUROSEMIDE INJ 20 MG in SYRINGE 0 ML IV SCH (09:18)
[2017-03-24] MEDS: DOCUSATE SODIUM 100 MG/10 ML UDC PEG SCH ×2 (09:18→20:43)
[2017-03-24] MEDS: RANITIDINE HCL 150 MG TAB GT SCH ×2 (09:18→20:43)
[2017-03-24] MEDS: FINASTERIDE 5 MG TAB PEG SCH (09:34)
[2017-03-24] MEDS: METOPROLOL TARTRATE 25 MG TAB PEG SCH ×2 (09:34→20:43)
[2017-03-24] MEDS: ENOXAPARIN 100 MG/1ML SYR SQ SCH ×2 (09:35→20:43)
[2017-03-24] MEDS: LISINOPRIL 2.5 MG TAB PEG SCH (09:35)
--- NOTE | 2017-03-24 10:35 | Hospitalist Progress Note ---
Hospitalist Progress Note Date of Service Mar 24, 2017. (Mesha Montelongo ., KENRICKC) Subjective Pt evaluation today including: conversation w/ patient, conversation w/ family (daughter and son in law at bedside), physical exam, chart review, lab review, review of inpatient medication list Pain: None PO Intake: NPO, PEG tube Voiding: galvez catheter in place Patient reports feeling well but is still fatigued. He has a productive cough with his oral secretions. He otherwise denies any complaints. He has been tolerating his PEG tube feedings well so far. The patient denies fevers, chills , sweats, chest pain, palpitations, claudication, wheezing, shortness of breath , nausea, vomiting, abdominal pain, dysuria, hematuria, urinary retention, paralysis, weakness, numbness and tingling. Additional Comments: See HPI for pertinent positives and negatives. All other systems reviewed and negative. (Mesha Montelongo ., BRET-C) Objective Vital Signs Date Time Temp Pulse Resp B/P (MAP) Pulse Ox O2 Delivery O2 Flow Rate FiO2 03/24/17 08:02 36.7 70 20 134/87 (103) 96 BiPAP 03/24/17 07:16 60 18 99 BiPAP/CPAP 7.0 03/24/17 04:10 37.1 74 22 146/92 (110) 99 BiPAP 03/24/17 04:00 CPAP 03/24/17 03:12 66 18 95 BiPAP/CPAP 7.0 03/24/17 00:15 36.5 75 20 147/89 (108) 99 BiPAP 03/24/17 00:00 CPAP 03/23/17 23:00 68 18 93 BiPAP/CPAP 7.0 03/23/17 22:35 68 93 7.0 03/23/17 20:24 91 Nasal Cannula 2.0 03/23/17 20:22 36.9 76 18 158/105 (122) 91 Nasal Cannula 2.0 03/23/17 19:15 75 18 96 Nasal Cannula 2.0 03/23/17 16:00 Nasal Cannula 2.0 03/23/17 15:43 37.0 67 16 108/75 (86) 97 Nasal Cannula 2.0 03/23/17 14:43 64 18 96 Nasal Cannula 3.0 03/23/17 14:36 95 Nasal Cannula 2.0 03/23/17 11:30 Nasal Cannula 2.0 BiPAP CPAP 03/23/17 11:21 67 18 100 Nasal Cannula 4.0 03/23/17 11:09 36.5 71 14 127/75 (92) 91 Nasal Cannula 2.0 (Mesha Montelongo ., PA-C) Physical Exam Notes: General appearance: +Appears chronically ill. Well-developed, well-nourished, no apparent distress Head: Normocephalic, atraumatic Eyes: Normal inspection, PERRL ENT: +Thick, white oral secretions. Hearing grossly normal Neck: Supple, no JVD, trachea midline Respiratory/Chest: +Decreased breath sounds. Lungs clear to auscultation, no respiratory distress Cardiovascular: +Irregularly irregular, rate controlled. Systolic murmur. No gallop Abdomen/GI: +PEG tube LUQ. Normal bowel sounds, non-tender, soft Extremities/Musculoskeletal: Normal inspection, no calf tenderness, no pedal edema Neurological/Psych: +Fatigued, falls asleep often during visit but easily roused and is conversing. Normal mood/affect. Oriented x 3 Skin: +Ecchymoses RUE. Normal color, warm/dry, no rash (Mesha Montelongo ., PA-C) Laboratory Results Last 24 Hours Test 03/24/17 07:02 White Blood Count 6.75 K/uL Red Blood Count 3.75 M/uL Hemoglobin 11.4 g/dL Hematocrit 34.8 % Mean Corpuscular Volume 92.8 fL Mean Corpuscular Hemoglobin 30.4 pg Mean Corpuscular Hemoglobin Concent 32.8 g/dl RDW Standard Deviation 52.1 fL RDW Coefficient of Variation 16.0 % Platelet Count 139 K/uL Mean Platelet Volume 9.2 fL Nucleated RBC Absolute Count (auto) 0.02 K/uL Nucleated Red Blood Cells % 0.3 % Sodium Level 142 mmol/L Potassium Level 3.3 mmol/L Chloride Level 105 mmol/L Carbon Dioxide Level 29 mmol/L Anion Gap 8.0 mmol/L Blood Urea Nitrogen 28 mg/dl Creatinine 0.90 mg/dl Est Creatinine Clear Calc Drug Dose 62.8 ml/min Estimated GFR () 89.3 Estimated GFR (Non- 77.1 BUN/Creatinine Ratio 31.3 Random Glucose 120 mg/dl Calcium Level 8.3 mg/dl Phosphorus Level 2.5 mg/dl Magnesium Level 2.2 mg/dl Total Bilirubin 1.7 mg/dl Direct Bilirubin 0.6 mg/dl Aspartate Amino Transf (AST/SGOT) 101 U/L Alanine Aminotransferase (ALT/SGPT) 93 U/L Alkaline Phosphatase 211 U/L Total Protein 5.9 gm/dl Albumin 2.8 gm/dl (Mesha Montelongo, DU) Assessment and Plan 86 y/o with a history of a-fib on chronic anticoagulation, HTN, HLD, and GERD who presents to the ED on 03/11 with altered mental status and weakness. Septic/metabolic encephalopathy--improving -Admit to telemetry. No acute events overnight. Pt in a-fib/paced with HR 60s- 80s -Multifactorial. PNA, hyponatremia stable. Check other reasons -CXR 03/20 shows congestive failure, no significant change from previous study -Ammonia improved to 20 following Bisacodyl -Repeat ABG 03/20 showed hyperventilation. Continue CPAP -Pt breathing comfortably on NC -On encephalopathy coverage per ID. Completed full course acyclovir. Completed 7 days vancomycin. Zosyn IV, day #10 -D/C Zosyn and vancomycin -Brain MRI negative -Haldol IM prn severe agitation, use sparingly Aspiration pneumonia w/acute hypoxic respiratory failure--stable -Daughter notes he gets respiratory illnesses every fall - raising suspicion of baseline allergic or pulmonary diseases; however, aspiration appears dominant piece of picture -D/C abx 03/21 -Continue nebs/pulmonary toilet -Continue supportive care -Will need to be medically stable from PNA before proceeding with endoscopic procedures at [facility] -Consult pulm, appreciate recs: Continue supplemental oxygen to maintain b/w 88 -92%. Use BiPAP at night. Continue bronchodilators. Signing off. Pulmonary edema -Echo 03/12/17 LVEF 55-60%, no WMA. No diastolic dysfunction noted. 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 -Continue tube feedings. Currently at 40 cc/hr, goal of 80 cc/hr. Tolerating well. -LFTs continue to trend down -Liver ultrasound shows gallbladder wall thickening and sludge, findings equivocal for cholecystitis -Unable to obtain HIDA. Pt cannot clear secretions when laying flat -Pt will likely need a stay at [facility] to get stronger first, then transfer to [facility] for endoscopic tx of Zenker diverticulum Prolonged poor PO intake/acute protein-calorie malnutrition -Unable to pass NGT. TPN d/c'd. 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 Likely due to combined physiologic and neurologic stressors from all of above -Empiric Keppra 500 mg IV BID. Continue through hospitalization and early part of recovery, possibly longer A-fib--stable, rate controlled -Xarelto held due to NPO status, resume 48-72 hours after procedure Hypertension--stable -Convert home PO meds to PEG, d/c IV HTN meds -D/C-Vasotec 2.5 mg IV QID, Lopressor 2.5 mg IV q6h -Continue lisinopril 2.5 mg PEG qd, Lopressor 25 mg PEG BID -Cover with hydralazine 10 mg IV q6h prn SBP >180 Hyperlipidemia -Resume atorvastatin 40 mg PEG qd 5 cm aneurysm -Prior hospitalist made family aware. Outpt f/u DVT prophylaxis -Therapeutic Lovenox 1 mg/kg SC q12h. Can resume Xarelto tomorrow -SCDs Code Status -Level V, DO NOT RESUSCITATE Dispo -Pt will nee SNF placement. Family considering placing pt closer to the children in either [facility] or [place]. Also considering staying at [facility] initially until Zenker's taken care of and then ultimately moving closer to kids later. Family will discuss with pt and let us know. (Mesha Montelongo ., PAHaleyC) Reviewed: Pt Seen/Exam by Me (Aneta Dela Cruz MD) History Physician Pharmaceutical Engineer Supervision Note: I interviewed and examined the patient. Discussed with BRET Montelongo and agree with findings and plan as documented in the note. Any exceptions or clarifications are listed here: Pt improved, tolerating PEG tube feedings, conversational today Tele reviewed, Vitals reviewed lying in bed, awake, alert, oriented irreg irreg, 2/6 BRANDT at LLSB Lungs with decreased BS at bases bt otherwise much clearer Abd +BS, soft, NT ND, dressing over PEG tube in place is c/d/i Ext trace pitting edema Pt is an 86 yo male here with acute metabolic encephalopathy secondary to aspiration PNA, with Zenker's diverticulum and esophageal dysmotility. Now off TPN and had PEG tube placed. Mental status has remarkably improved the last 2 days Started PEG feeds and slowly increasing. 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 -Appreciate Pulmonary input -continue bowel regimen with Bisacodyl suppos prn, added docusate to PEG encephalopathy evaluation included EEG, CT head, brain MRI, no other source of infection found, hyponatremia improved, likely due to infection, did have elevated Ammonia at 34 which improved after BMs -PEG tube placed and began enteral feeds slowly, Watch for refeeding syndrome, check daily lytes and LFTs which are improving Acute on chronic diastolic CHF-ECHO with suspected pulm HTN and decreased collapsibility of IVC. Continues to diurese -continue CPAP for respiratory support if needed -continue diuresis with IV lasix daily given markedly positive net balance of fluid and evidence of pulm edema on CXR, follow I/Os -repeat CXR as needed -dcd IVFs now that receiving PEG feeds Chronic [id number] on hold for procedures, rate controlled with metoprolol -restart Xarelto in 1 day as per GI with recent PEG tube placement -continue with full dose Lovenox until restart Xarelto Helio Shrestha respirations-central vs cardiac issues--> completely resolved with resolution of encephalopathy -Lovenox SQ full dose Dispo-discussed at length with daughter today at bedside, considering transfer to SNF near one of his children-will d/w CM Documented By: Aneta Dela Cruz (Aneta Dela Cruz MD)
--- NOTE | 2017-03-24 17:58 | PROGRESS NOTE ---
DATE: 03/24/2017 The patient had a gastrostomy tube placed 2 days ago and functioning well. He is no longer receiving IV nutrition. He is a little more alert today. I discussed the fact that Dr. Antonino Montilla will be rounding this weekend and can assess his esophagus. I also told him and his daughter who is the power of civil attorney that even if his Zenker's is repaired that if he has esophageal dysmotility he may still not be able to swallow perfectly. IMPRESSION: The patient is improving with gastrostomy nutrition and hopefully Dr. Montilla can do an assessment this weekend to determine the value of proceeding with percutaneous endoscopic myotomy.
[2017-03-24] MEDS: IMPACT LIQ 1000 ML BAG PEG PRN (18:09)
[2017-03-25] VITALS (15 sets, daily range): BP systolic 144–169; BP diastolic 74–100; PULSE 57–82; TEMP 36.3–37; O2SAT 92–99
[2017-03-25] MEDS: ALBUT/IPRATROP 3MG/0.5MG NEB 3 ML VIAL INH SCH ×6 (03:29→23:03)
[2017-03-25] MEDS: LEVETIRACETAM IV 500 MG in DEXTROSE 5% 100ML 100 ML IV SCH ×2 (05:10→17:30)
[2017-03-25 06:44] LABS: HEMATOCRIT 36.1 % (42-52); MEAN CELL VOLUME 93.3 fL (80-100); MEAN CORPUSCULAR HEMOGLOBIN 30.5 pg (25-34); MEAN CORPUSCULAR HGB CONC 32.7 g/dl (32-36); MEAN PLATELET VOLUME 9.9 fL (7.4-10.4); PLATELET COUNT 170 K/uL (130-400); RED BLOOD COUNT 3.87 M/uL (4.7-6.1)
[2017-03-25 07:11] LABS: BUN/CREATININE RATIO 34.6 (10-20); CALCIUM 8.6 mg/dl (8.5-10.1); CREATININE 0.81 mg/dl (0.60-1.40); MAGNESIUM 2.1 mg/dl (1.8-2.4); POTASSIUM 3.5 mmol/L (3.5-5.1)
[2017-03-25] MEDS ORDERED: POTASSIUM CHLORIDE 20 MEQ/15 ML UDC PEG STA (07:33)
[2017-03-25] MEDS: METOPROLOL TARTRATE 25 MG TAB PEG SCH ×2 (08:10→21:05)
[2017-03-25] MEDS: FINASTERIDE 5 MG TAB PEG SCH (08:10)
[2017-03-25] MEDS: RANITIDINE HCL 150 MG TAB GT SCH ×2 (08:10→19:36)
[2017-03-25] MEDS: DOCUSATE SODIUM 100 MG/10 ML UDC PEG SCH ×2 (08:11→21:05)
[2017-03-25] MEDS: LISINOPRIL 2.5 MG TAB PEG SCH (08:11)
[2017-03-25] MEDS: ENOXAPARIN 100 MG/1ML SYR SQ SCH (08:11)
[2017-03-25] MEDS: FUROSEMIDE INJ 20 MG in SYRINGE 0 ML IV SCH (08:11)
[2017-03-25] MEDS: TAMSULOSIN HCL 0.4 MG CAP PO SCH (08:12)
[2017-03-25] MEDS ORDERED: BISACODYL 10 MG SUPP PR STA (11:26)
--- NOTE | 2017-03-25 11:51 | Gastroenterology Progress Note ---
Progress Note Date of Service: Mar 25, 2017 Subjective Pt evaluation today including: conversation w/ patient, conversation w/ family , physical exam, chart review, review of studies Review of Systems Constitutional: + see HPI, + weakness Respiratory: + cough Abdomen: + dysphagia Medications Current Inpatient Medications Medications (Trade) Dose Ordered Sig/Tanesha Route Start Time Stop Time Status Last Admin Dose Admin Ondansetron HCl (Zofran Inj) 4 mg Q6H PRN IV 03/11/17 16:45 04/10/17 16:44 Ferrous Sulfate (Feosol Tab) 325 mg BID PO 03/11/17 21:00 04/10/17 20:59 Future Hold Levetiracetam 500 mg/Dextrose 105 ml @ 420 mls/hr Q12@0600,1800 IV 03/12/17 06:00 04/11/17 05:59 03/25/17 05:10 420 MLS/HR Hydralazine HCl (HydrALAZINE INJ) 10 mg Q6 PRN IV. 03/13/17 09:15 04/12/17 09:14 03/18/17 10:51 10 MG Albuterol/ Ipratropium (Duoneb) 3 ml Q4R INH 03/13/17 12:00 04/12/17 11:59 03/25/17 11:32 3 ML Albuterol Sulfate (Ventolin 0.083% 2.5MG/3ML Neb) 2.5 mg Q2R PRN INH 03/13/17 10:45 04/12/17 10:44 03/18/17 17:10 2.5 MG Haloperidol Lactate (Haldol Inj) 2.5 mg Q6 PRN IM 03/16/17 18:30 04/15/17 13:44 Heparin Sodium (Porcine) (Heparin 10 Unit/ ml 5 ml Flush) 5 ml PRN PRN FLUSH 03/18/17 01:15 04/17/17 01:14 Furosemide 20 mg/ Syringe 2 ml @ 4 mls/min QAM IV 03/23/17 09:00 04/22/17 08:59 03/25/17 08:11 4 MLS/MIN Enteral Nutritional Formula (Impact 1.0 Julio Cesar) 1,000 ml UD PRN PEG 03/23/17 09:00 04/22/17 08:59 03/24/17 18:09 1,000 ML Lisinopril (Zestril Tab) 2.5 mg QAM PEG 03/24/17 09:00 04/23/17 08:59 03/25/17 08:11 2.5 MG Finasteride (Proscar Tab) 5 mg QAM PEG 03/24/17 09:00 04/23/17 08:59 03/25/17 08:10 5 MG Metoprolol Tartrate (Lopressor Tab) 25 mg BID PEG 03/23/17 21:00 04/22/17 20:59 03/25/17 08:10 25 MG Ranitidine HCl (zANTac TAB) 150 mg BID GT 03/23/17 21:00 04/22/17 20:59 03/25/17 08:10 150 MG Enoxaparin Sodium (Lovenox Inj) 90 mg Q12 SQ 03/23/17 12:00 04/22/17 11:59 03/25/17 08:11 90 MG Docusate Sodium (coLACE SYRUP) 100 mg BID PEG 03/23/17 21:00 04/22/17 20:59 03/25/17 08:11 100 MG Tamsulosin HCl (Flomax Cap) 0.4 mg QAM PO 03/25/17 09:00 04/24/17 08:59 03/25/17 08:12 0.4 MG Bisacodyl (Dulcolax Supp) 10 mg NOW STAT MI 03/25/17 11:26 03/25/17 11:27 UNV Objective Vital Signs Date Time Temp Pulse Resp B/P (MAP) Pulse Ox O2 Delivery O2 Flow Rate FiO2 03/25/17 08:17 36.9 71 15 169/100 (123) 99 Room Air 03/25/17 08:00 96 Room Air 2.0 100 03/25/17 07:07 65 18 96 Room Air 03/25/17 04:37 36.8 82 20 159/97 (117) 95 Nasal Cannula 03/25/17 04:00 Room Air 03/25/17 03:30 70 18 96 Room Air 03/25/17 00:00 Room Air 03/24/17 23:57 36.6 61 19 147/95 (112) 95 Room Air 03/24/17 23:22 85 18 92 Room Air 03/24/17 20:00 Room Air 03/24/17 19:11 37.1 64 18 149/89 (109) 100 Nebulizer 03/24/17 19:05 69 16 94 Room Air 03/24/17 16:00 Room Air 03/24/17 15:57 36.5 65 18 154/87 (109) 94 Room Air 03/24/17 15:41 55 12 94 Room Air 03/24/17 12:00 Room Air Physical Exam General Appearance: no apparent distress Eyes: normal inspection ENT: normal ENT inspection, hearing grossly normal Respiratory/Chest: + decreased breath sounds, + crackles Cardiovascular: + irregularly irregular Abdomen: non tender (Peg tube is in good position, I did not remove the dressing.), soft Skin: normal color Laboratory Results Last 24 Hours Test 03/25/17 06:26 White Blood Count 7.90 K/uL Red Blood Count 3.87 M/uL Hemoglobin 11.8 g/dL Hematocrit 36.1 % Mean Corpuscular Volume 93.3 fL Mean Corpuscular Hemoglobin 30.5 pg Mean Corpuscular Hemoglobin Concent 32.7 g/dl RDW Standard Deviation 52.8 fL RDW Coefficient of Variation 16.2 % Platelet Count 170 K/uL Mean Platelet Volume 9.9 fL Sodium Level 140 mmol/L Potassium Level 3.5 mmol/L Chloride Level 103 mmol/L Carbon Dioxide Level 30 mmol/L Anion Gap 7.0 mmol/L Blood Urea Nitrogen 28 mg/dl Creatinine 0.81 mg/dl Est Creatinine Clear Calc Drug Dose 69.7 ml/min Estimated GFR () 93.3 Estimated GFR (Non- 80.5 BUN/Creatinine Ratio 34.6 Random Glucose 125 mg/dl Calcium Level 8.6 mg/dl Magnesium Level 2.1 mg/dl Total Bilirubin 1.7 mg/dl Direct Bilirubin 0.6 mg/dl Aspartate Amino Transf (AST/SGOT) 89 U/L Alanine Aminotransferase (ALT/SGPT) 82 U/L Alkaline Phosphatase 231 U/L Total Protein 5.9 gm/dl Albumin 2.8 gm/dl Assessment and Plan Slowly improving aspiration pneumonia, PEG site non tender. tolerating tube feeds. Definite Zenker's diverticulum. Plan cricopharngiomyotomy at [place] in next month or so after he gets closer to baseline. If he has more aspiration episodes we might want to do a n earlier procedure. Extensively discussed with family and patient. Explained procedure and risk of bleeding, tear and neck abscess to them. Luis Enrique pictures of the tic. Questions were answered. He will have to be off anticoagulation for three days prior to procedure, likely same day. 45mins used for this patient.
--- NOTE | 2017-03-25 11:53 | DIAGNOSTIC IMAGING REPORT ---
CHEST ONE VIEW PORTABLE CLINICAL HISTORY: 86 years-old Male presenting with f/u pulm edema,question recurrent aspiration. TECHNIQUE: Portable upright AP view of the chest was obtained. COMPARISON: 03/24/2017. FINDINGS: Left-sided pacer with single lead to the right ventricular apex. Atherosclerosis of the aortic arch. Persistent cardiac silhouette enlargement. Stable bibasilar opacities. Stable left pleural effusion. Probable trace right pleural effusion. No pneumothorax. Degenerative changes of the thoracic spine. Upper abdomen normal. IMPRESSION: 1. Cardiomegaly with persistent bibasilar opacities likely pulmonary edema, although this appearance could be seen in the setting of aspiration. 2. Persistent small left and trace right pleural effusions. Electronically signed by: Demetris Patton M.D. 03/25/2017 11:52 AM Dictated Date/Time: 03/25/2017 11:50 AM
--- NOTE | 2017-03-25 12:11 | Hospitalist Progress Note ---
Hospitalist Progress Note Date of Service Mar 25, 2017. Subjective Pt evaluation today including: conversation w/ patient, conversation w/ family , conversation w/ banking consultant (GI Dr. Montilla) Voiding: galvez catheter in place (had urinary retention last night since Galvez d/c'd, Galvez replaced) Pt a bit more lethargic today than previous 2 days, but easily wakes up and answers questions appropriately. Tube feeds up to 65 this AM. Denies pain anywhere, denies SOB, denies cough. Afebrile, not hypoxic. No BM for several days All Other Systems: Reviewed and Negative Objective Vital Signs Date Time Temp Pulse Resp B/P (MAP) Pulse Ox O2 Delivery O2 Flow Rate FiO2 03/25/17 08:17 36.9 71 15 169/100 (123) 99 Room Air 03/25/17 08:00 96 Room Air 2.0 100 03/25/17 07:07 65 18 96 Room Air 03/25/17 04:37 36.8 82 20 159/97 (117) 95 Nasal Cannula 03/25/17 04:00 Room Air 03/25/17 03:30 70 18 96 Room Air 03/25/17 00:00 Room Air 03/24/17 23:57 36.6 61 19 147/95 (112) 95 Room Air 03/24/17 23:22 85 18 92 Room Air 03/24/17 20:00 Room Air 03/24/17 19:11 37.1 64 18 149/89 (109) 100 Nebulizer 03/24/17 19:05 69 16 94 Room Air 03/24/17 16:00 Room Air 03/24/17 15:57 36.5 65 18 154/87 (109) 94 Room Air 03/24/17 15:41 55 12 94 Room Air 03/24/17 12:00 Room Air Physical Exam General Appearance: WD/WN, no apparent distress (intermittently falls asleep while I'm talking to him, easily awakens) Eyes: normal inspection, sclerae normal ENT: hearing grossly normal Neck: trachea midline Respiratory/Chest: no respiratory distress, no accessory muscle use, + decreased breath sounds (at the bases, with some coarse upper airway sounds that clear with cough) Cardiovascular: + systolic murmur (2/6 at LLSB), + irregularly irregular Abdomen: normal bowel sounds, non tender, soft, + pertinent finding (PEG tube in place, dressing c/d/i) Extremities: non-tender, normal inspection, no pedal edema, no calf tenderness Neurologic/Psychiatric: + pertinent finding (drowsy as above, but wakes up and is oriented) Skin: normal color, warm/dry, no rash Laboratory Results Last 24 Hours Test 03/25/17 06:26 White Blood Count 7.90 K/uL Red Blood Count 3.87 M/uL Hemoglobin 11.8 g/dL Hematocrit 36.1 % Mean Corpuscular Volume 93.3 fL Mean Corpuscular Hemoglobin 30.5 pg Mean Corpuscular Hemoglobin Concent 32.7 g/dl RDW Standard Deviation 52.8 fL RDW Coefficient of Variation 16.2 % Platelet Count 170 K/uL Mean Platelet Volume 9.9 fL Sodium Level 140 mmol/L Potassium Level 3.5 mmol/L Chloride Level 103 mmol/L Carbon Dioxide Level 30 mmol/L Anion Gap 7.0 mmol/L Blood Urea Nitrogen 28 mg/dl Creatinine 0.81 mg/dl Est Creatinine Clear Calc Drug Dose 69.7 ml/min Estimated GFR () 93.3 Estimated GFR (Non- 80.5 BUN/Creatinine Ratio 34.6 Random Glucose 125 mg/dl Calcium Level 8.6 mg/dl Magnesium Level 2.1 mg/dl Total Bilirubin 1.7 mg/dl Direct Bilirubin 0.6 mg/dl Aspartate Amino Transf (AST/SGOT) 89 U/L Alanine Aminotransferase (ALT/SGPT) 82 U/L Alkaline Phosphatase 231 U/L Total Protein 5.9 gm/dl Albumin 2.8 gm/dl Assessment and Plan Pt is an 86 y/o with a history of a-fib on chronic anticoagulation, pacemaker in situ, chronic atrial fibrillation on Xarelto, chronic diastolic CHF, HTN, HLD , and GERD/severe esophageal dysmotility who presents to the ED on 03/11 with altered mental status and weakness. Acute metabolic encephalopathy secondary to aspiration PNA, with Zenker's diverticulum and esophageal dysmotility. Now off TPN and had PEG tube placed. Mental status had remarkably improved the last 2 days, but now today seems to be slightly worsened again. Some coarse breath sounds, suspect continued aspiration as culprit perhaps of secretions. Has very tight Upper esophageal sphincter below his Zenker's so likelihood of tube feeds regurgitating and aspirating is low as per d/w GI today Previously completed course of 10 days Zosyn,Vanco for Aspiration PNA as well as for HCAP. 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 Encephalopathy evaluation included EEG (no seixures, but with encephalopathy), CT head, brain MRI, no other source of infection found, hyponatremia improved, likely due to infection, did have elevated Ammonia at 34 which improved after BMs, but now no BM in 3 days. When becomes encephalopathic, develops Helio-Shrestha breathing pattern -continue bowel regimen with Bisacodyl suppos prn (will give one dose now), added docusate to PEG -continue PEG feeds but decrease back to 50 mls/hr today -check CXR -place CPAP on for respiratory support when drowsy or sleeping and qhs continuously -Discussed case at length with Interventional GI from [facility] today--> plans for esophageal myomtomy within 2 weeks at [facility] which should resolve his tight UES and Zenker's -Watch for refeeding syndrome, check daily lytes and LFTs which continue to improve Acute on chronic diastolic CHF/Valvular Disease- ECHO with suspected pulm HTN and decreased collapsibility of IVC, LVEF 55-60%, no WMAs,right ventricle is severely dilated with nl RVV fxn, mild to moderate mitral regurgitation, moderate to severe TR, Moderate Pulmonary HTN with PA pressure 55 mm/hg, Dilated aortic root 4.9 cm and ascending aorta 4.7 cm. Continues to diurese -continue CPAP for respiratory support if needed -continue diuresis with IV lasix daily given markedly positive net balance of fluid and evidence of pulm edema on CXR, follow I/Os -repeat CXR today Chronic A-fib on assisted AC with Xarelto/Pacemaker in situ-Xarelto was on hold for procedures, rate controlled with metoprolol -restart Xarelto today as per GI with recent PEG tube placement -can stop full dose Lovenox simultaneously with restart Xarelto this evening -follows with Cardiology routinely as outpt Helio Shrestha respirations-central vs cardiac issues--> resolves with resolution of encephalopathy -CPAP nocturnally and prn during day -will need formal sleep study to eval for Central sleep apnea prior to return to home from [facility] Elevated LFTs-likely secondary to antibiotic use vs acute illness vs TPN use- now improving Liver ultrasound shows gallbladder wall thickening and sludge, findings equivocal for cholecystitis -Unable to obtain HIDA. Pt cannot clear secretions when laying flat -no need for HIDA at this point, resolving and no abdominal pain, no other signs of acute philippe Possible seizure prior to admission-seen by Neuro, EEG no seizure activity -No structural brain disease, MRI negative, no further events. Likely due to combined physiologic and neurologic stressors from all of above -Empiric Keppra 500 mg IV BID. 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 -will need outpatient follow up and continued surveillance with Cardiology -good BP control Prophylaxis-Lovenox SQ full dose, starting Xarelto this evening Dispo-discussed at length with daughter today at bedside, plan to dc to [facility] when tolerating goal tube feeds with plans for outpatient Esophageal myotomy in 2-3 weeks at [facility] with Dr. Montilla vs direct transfer to [facility] for myotomy sooner if has persistent signs of aspiration (as GI feels myotomy will completely cure his aspiration)
[2017-03-25] MEDS ORDERED: IMPACT LIQ 1000 ML BAG PEG SCH (12:30)
[2017-03-25] MEDS ORDERED: RIVAROXABAN 20 MG TAB PO SCH (16:45)
[2017-03-26] VITALS (18 sets, daily range): BP systolic 116–146; BP diastolic 74–97; PULSE 49–84; TEMP 36.6–36.8; O2SAT 92–99
[2017-03-26] MEDS: ALBUT/IPRATROP 3MG/0.5MG NEB 3 ML VIAL INH SCH ×6 (03:43→22:53)
[2017-03-26 05:47] LABS: BASO % 0.2 %; BASO ABS # 0.01 K/uL (0-0.2); COMPLETE YES; HEMATOCRIT 33.4 % (42-52); IG% 0.3 %; LYMPH % 6.7 %; LYMPH ABS # 0.39 K/uL (1.2-3.4); MEAN CELL VOLUME 93.6 fL (80-100); MEAN CORPUSCULAR HEMOGLOBIN 31.9 pg (25-34); MEAN CORPUSCULAR HGB CONC 34.1 g/dl (32-36); MEAN PLATELET VOLUME 9.6 fL (7.4-10.4); MONO % 12.1 %; NEUT % 79.7 %; PLATELET COUNT 185 K/uL (130-400); RED BLOOD COUNT 3.57 M/uL (4.7-6.1); WHITE BLOOD COUNT 5.79 K/uL (4.8-10.8)
[2017-03-26] MEDS: LEVETIRACETAM IV 500 MG in DEXTROSE 5% 100ML 100 ML IV SCH (05:56)
[2017-03-26 06:11] LABS: BUN/CREATININE RATIO 37.9 (10-20); CALCIUM 8.8 mg/dl (8.5-10.1); CREATININE 0.78 mg/dl (0.60-1.40); POTASSIUM 3.5 mmol/L (3.5-5.1)
[2017-03-26 06:14] LABS: PHOSPHORUS 2.7 mg/dl (2.5-4.9)
[2017-03-26] MEDS: FUROSEMIDE INJ 20 MG in SYRINGE 0 ML IV SCH (08:05)
[2017-03-26] MEDS: FINASTERIDE 5 MG TAB PEG SCH (08:05)
[2017-03-26] MEDS: TAMSULOSIN HCL 0.4 MG CAP PO SCH (08:05)
[2017-03-26] MEDS: RANITIDINE HCL 150 MG TAB GT SCH ×2 (08:05→21:02)
[2017-03-26] MEDS: LISINOPRIL 2.5 MG TAB PEG SCH (08:06)
[2017-03-26] MEDS: DOCUSATE SODIUM 100 MG/10 ML UDC PEG SCH ×2 (08:06→21:01)
[2017-03-26] MEDS: METOPROLOL TARTRATE 25 MG TAB PEG SCH ×2 (09:42→21:02)
[2017-03-26] MEDS ORDERED: POTASSIUM CHLORIDE 20 MEQ/15 ML UDC PEG ONE (10:30)
[2017-03-26] MEDS ORDERED: IMPACT LIQ 1000 ML BAG PEG SCH (13:15)
[2017-03-26] MEDS: ENOXAPARIN 80 MG/0.8 ML SYR SQ SCH (17:40)
[2017-03-26] MEDS ORDERED: ENOXAPARIN 1 MG/KG SQ SCH (18:00)
[2017-03-26] MEDS: LEVETIRACETAM SOLN 500 MG/5 ML UDP PEG SCH (18:31)
[2017-03-27] VITALS (17 sets, daily range): BP systolic 114–134; BP diastolic 58–87; PULSE 52–79; TEMP 36.4–37; O2SAT 93–99
--- NOTE | 2017-03-27 00:25 | Hospitalist Progress Note ---
Hospitalist Progress Note Date of Service Mar 26, 2017. Subjective Pt evaluation today including: conversation w/ patient, conversation w/ family , conversation w/ wardrobe image consultant (PATRICIA Senior) Voiding: galvez catheter in place Pt denies any problems, no cough, no CP, no SOB. Is still very drowsy. Is wanting to get out of bed to a chair. PT did not work with him and no one got him out of bed yesterday to a chair. RN reports coarse breath sounds. All Other Systems: Reviewed and Negative Objective Vital Signs Date Time Temp Pulse Resp B/P (MAP) Pulse Ox O2 Delivery O2 Flow Rate FiO2 03/26/17 22:54 51 97 2.0 03/26/17 22:53 51 18 97 BiPAP/CPAP 2.0 03/26/17 21:03 76 03/26/17 20:00 Room Air 03/26/17 19:18 36.7 56 18 146/83 (104) 99 Room Air 03/26/17 19:08 49 18 93 Room Air 03/26/17 16:00 96 Room Air 03/26/17 15:28 36.6 54 18 138/74 (95) 95 Room Air 03/26/17 15:20 60 18 95 Room Air 03/26/17 12:22 36.6 62 17 116/84 (95) 95 Room Air 03/26/17 12:00 96 Room Air 03/26/17 11:22 57 18 96 Room Air 03/26/17 08:00 96 Room Air 03/26/17 07:58 36.7 84 18 132/89 (103) 95 Room Air 03/26/17 07:08 66 18 92 BiPAP/CPAP 2.0 03/26/17 04:15 36.8 72 18 144/97 (113) 97 BiPAP 03/26/17 04:00 CPAP 03/26/17 03:45 74 94 2.0 03/26/17 03:43 74 18 94 BiPAP/CPAP 2.0 03/26/17 00:26 36.6 63 19 129/77 (94) 96 BiPAP Physical Exam General Appearance: WD/WN, no apparent distress Eyes: normal inspection, sclerae normal Neck: trachea midline Respiratory/Chest: no respiratory distress, no accessory muscle use, + decreased breath sounds (at bases, but no coarse BS, no rhonchi or wheezes) Cardiovascular: + irregularly irregular Abdomen: normal bowel sounds, non tender, soft (and PEG tube in place) Extremities: non-tender, normal inspection, no pedal edema, no calf tenderness Neurologic/Psychiatric: + pertinent finding (drowsy, but wakes up immediately with verbal stimuli and proceeds to answer all questions appropriately, is oriented x 3) Skin: normal color, warm/dry, no rash Laboratory Results Last 24 Hours Test 03/26/17 05:16 White Blood Count 5.79 K/uL Red Blood Count 3.57 M/uL Hemoglobin 11.4 g/dL Hematocrit 33.4 % Mean Corpuscular Volume 93.6 fL Mean Corpuscular Hemoglobin 31.9 pg Mean Corpuscular Hemoglobin Concent 34.1 g/dl Platelet Count 185 K/uL Mean Platelet Volume 9.6 fL Neutrophils (%) (Auto) 79.7 % Lymphocytes (%) (Auto) 6.7 % Monocytes (%) (Auto) 12.1 % Eosinophils (%) (Auto) 1.0 % Basophils (%) (Auto) 0.2 % Neutrophils # (Auto) 4.61 K/uL Lymphocytes # (Auto) 0.39 K/uL Monocytes # (Auto) 0.70 K/uL Eosinophils # (Auto) 0.06 K/uL Basophils # (Auto) 0.01 K/uL RDW Standard Deviation 53.6 fL RDW Coefficient of Variation 15.9 % Immature Granulocyte % (Auto) 0.3 % Immature Granulocyte # (Auto) 0.02 K/uL Sodium Level 140 mmol/L Potassium Level 3.5 mmol/L Chloride Level 103 mmol/L Carbon Dioxide Level 31 mmol/L Anion Gap 6.0 mmol/L Blood Urea Nitrogen 30 mg/dl Creatinine 0.78 mg/dl Est Creatinine Clear Calc Drug Dose 72.4 ml/min Estimated GFR () 94.7 Estimated GFR (Non- 81.7 BUN/Creatinine Ratio 37.9 Random Glucose 114 mg/dl Calcium Level 8.8 mg/dl Phosphorus Level 2.7 mg/dl Magnesium Level 2.0 mg/dl Total Bilirubin 1.6 mg/dl Direct Bilirubin 0.7 mg/dl Aspartate Amino Transf (AST/SGOT) 79 U/L Alanine Aminotransferase (ALT/SGPT) 67 U/L Alkaline Phosphatase 220 U/L Total Protein 5.8 gm/dl Albumin 2.7 gm/dl Assessment and Plan Pt is an 86 y/o with a history of a-fib on chronic anticoagulation, pacemaker in situ, chronic atrial fibrillation on Xarelto, chronic diastolic CHF, HTN, HLD , and GERD/severe esophageal dysmotility who presents to the ED on 03/11 with altered mental status and weakness. Acute metabolic encephalopathy secondary to aspiration PNA, with Zenker's diverticulum and esophageal dysmotility. Now off TPN and had PEG tube placed. Mental status has remarkably improved since admission, but now remains very drowsy but oriented, still mildly encephalopathic- with intermittent coarse breath sounds, suspect continued aspiration as culprit perhaps of secretions. Has very tight Upper esophageal sphincter below his Zenker's so likelihood of tube feeds regurgitating and aspirating is low as per d/w GI today Previously completed course of 10 days Zosyn,Vanco for Aspiration PNA as well as for HCAP. 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 Encephalopathy evaluation included EEG (no seizures, but with encephalopathy), CT head, brain MRI, no other source of infection found, hyponatremia improved, likely due to infection, did have elevated Ammonia at 34 which improved after BMs, is continuing to move his bowels When becomes encephalopathic, develops Helio-Shrestha breathing pattern-has not had this in 2 days Discussed with GI--> would be much better for lungs to get improved prior to general anesthesia and intubation for planned esophageal myomotomy in 2-3 weeks. -perform Chest PT, vibration vest to loosen up secretions, has good cough now -continue bowel regimen , added docusate to PEG -continue PEG feeds and ok to increase by 5 mls/hr q4h to goal of 80 mls/hr Impact -follow CXR -place CPAP on for respiratory support when drowsy or sleeping and qhs continuously -Discussed case at length with Interventional GI from [facility] today--> plans for esophageal myomotomy within 2-3 weeks at [facility] which should resolve his tight UES and Zenker's -No evidence of refeeding syndrome, check daily lytes and LFTs which continue to improve Acute on chronic diastolic CHF/Valvular Disease-improving, continues to diurese daily ECHO with suspected pulm HTN and decreased collapsibility of IVC, LVEF 55-60%, no WMAs,right ventricle is severely dilated with nl RVV fxn, mild to moderate mitral regurgitation, moderate to severe TR, Moderate Pulmonary HTN with PA pressure 55 mm/hg, Dilated aortic root 4.9 cm and ascending aorta 4.7 cm. Repeat CXR 03/25 is improved with less pulm edema Continues to diurese -continue CPAP for respiratory support if needed -continue diuresis with IV lasix daily given markedly positive net balance of fluid and evidence of pulm edema on CXR, follow I/Os Chronic A-fib on [facility] AC with Xarelto/Pacemaker in situ-Xarelto was on hold for procedures, rate controlled with metoprolol -did restart Xarelto but now will hold and place on full dose Lovenox just in case needs Esophageal myomotomy sooner (and would need to hold Xarelto for 3 days prior to procedure) -follows with Cardiology routinely as outpt Helio Shrestha respirations-central vs cardiac issues--> resolves with resolution of encephalopathy -CPAP nocturnally and prn during day -will need formal sleep study to eval for Central sleep apnea prior to return to home from [facility] Elevated LFTs-likely secondary to antibiotic use vs acute illness vs TPN use- continue to improve Liver ultrasound shows gallbladder wall thickening and sludge, findings equivocal for cholecystitis -Unable to obtain HIDA. Pt cannot clear secretions when laying flat -no need for HIDA at this point, resolving and no abdominal pain, no other signs of acute philippe Possible seizure prior to admission-seen by Neuro, EEG no seizure activity -No structural brain disease, MRI negative, no further events. 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 -will need outpatient follow up and continued surveillance with Cardiology -good BP control Prophylaxis-Lovenox SQ full dose Dispo-discussed at length with daughter today at bedside, plan to dc to [facility] when tolerating goal tube feeds with plans for outpatient Esophageal myotomy in 2-3 weeks at [facility] with Dr. Roldan vs direct transfer to [facility] for myotomy sooner if has persistent signs of aspiration (as GI feels myotomy will completely cure his aspiration)
[2017-03-27] MEDS: ALBUT/IPRATROP 3MG/0.5MG NEB 3 ML VIAL INH SCH ×6 (03:29→23:01)
[2017-03-27] MEDS: ENOXAPARIN 80 MG/0.8 ML SYR SQ SCH ×2 (05:45→17:06)
[2017-03-27] MEDS: LEVETIRACETAM SOLN 500 MG/5 ML UDP PEG SCH ×2 (05:45→17:06)
[2017-03-27 05:59] LABS: HEMATOCRIT 36.4 % (42-52); MEAN CELL VOLUME 94.8 fL (80-100); MEAN CORPUSCULAR HEMOGLOBIN 29.9 pg (25-34); MEAN CORPUSCULAR HGB CONC 31.6 g/dl (32-36); PLATELET COUNT 187 K/uL (130-400); RED BLOOD COUNT 3.84 M/uL (4.7-6.1); WHITE BLOOD COUNT 5.18 K/uL (4.8-10.8)
[2017-03-27 06:33] LABS: CREATININE 0.86 mg/dl (0.60-1.40); POTASSIUM 3.8 mmol/L (3.5-5.1)
[2017-03-27] MEDS: TAMSULOSIN HCL 0.4 MG CAP PO SCH (08:06)
[2017-03-27] MEDS: FUROSEMIDE INJ 20 MG in SYRINGE 0 ML IV SCH (08:06)
[2017-03-27] MEDS: DOCUSATE SODIUM 100 MG/10 ML UDC PEG SCH ×2 (08:06→20:53)
[2017-03-27] MEDS: FINASTERIDE 5 MG TAB PEG SCH (08:06)
[2017-03-27] MEDS: LISINOPRIL 2.5 MG TAB PEG SCH (08:06)
[2017-03-27] MEDS: RANITIDINE HCL 150 MG TAB GT SCH ×2 (09:00→20:53)
--- NOTE | 2017-03-27 16:02 | Progress Note ---
Subjective Date of Service: Mar 27, 2017. Subjective Pt evaluation today including: conversation w/ patient, conversation w/ family , physical exam, chart review, lab review, review of studies, review of inpatient medication list Resting in bed comfortably No distress noted Tolerating tube feeds No concerns at this time Daughter at bedside Problem List Medical Problems: (1) Altered mental status Status: Acute (2) Bleeding internal hemorrhoids Status: Acute (3) Constipation Status: Acute (4) Epistaxis Status: Acute (5) Hypoxia Status: Acute (6) Lactic acidosis Status: Acute (7) PNA (pneumonia) Status: Acute (8) Respiratory failure Status: Acute (9) Severe anemia Status: Acute (10) Sinusitis Status: Acute (11) Skin lesion of scalp Status: Acute (12) Vertigo Status: Acute (13) Weakness Status: Acute Review of Systems Constitutional: No fever, No chills, No sweats, No weight loss ENT: No hearing loss, No unusual epistaxis, No nasal symptoms, No sore throat Respiratory: No cough, No sputum, No wheezing, No shortness of breath, No dyspnea on exertion Cardiac: No chest pain, No orthopnea, No PND, No edema Breast: No breast lump, No change in shape Abdomen: No pain, No nausea, No vomiting, No diarrhea, No constipation Musculoskeletal: No joint pain, No muscle pain, No swelling, No calf pain Male : No dysuria, No urinary frequency, No incontinence, No nocturia more than once/night, No slowing stream Neurologic: No memory loss, No paralysis, No weakness, No numbness/tingling, No vertigo Psychiatric: No depression symptoms, No anhedonism, No anxiety, No insomnia Endo: No fatigue, No excessive thirst Skin: No rash, No itch Objective Vital Signs Date Time Temp Pulse Resp B/P (MAP) Pulse Ox O2 Delivery O2 Flow Rate FiO2 03/27/17 15:51 36.7 57 18 114/58 (76) 95 BiPAP 03/27/17 15:36 77 18 97 BiPAP/CPAP 2.0 03/27/17 12:43 94 Room Air 03/27/17 11:44 68 18 94 Room Air 03/27/17 11:42 36.8 79 18 129/68 (88) 98 03/27/17 08:16 37.0 76 16 134/87 (103) 97 03/27/17 08:01 94 Room Air 03/27/17 07:25 68 18 98 BiPAP/CPAP 2.0 03/27/17 04:27 36.4 52 17 131/81 (98) 98 BiPAP 03/27/17 04:00 CPAP 03/27/17 03:30 61 99 2.0 03/27/17 03:29 61 18 99 BiPAP/CPAP 2.0 03/27/17 00:43 36.6 59 20 123/62 (82) 93 Room Air 03/27/17 00:00 CPAP 03/26/17 22:54 51 97 2.0 03/26/17 22:53 51 18 97 BiPAP/CPAP 2.0 03/26/17 21:03 76 03/26/17 20:00 Room Air 03/26/17 19:18 36.7 56 18 146/83 (104) 99 Room Air 03/26/17 19:08 49 18 93 Room Air 03/26/17 16:00 96 Room Air Physical Exam General Appearance: WD/WN, no apparent distress Eyes: normal inspection, PERRL, EOMI, sclerae normal Neck: supple, no adenopathy, thyroid normal, no JVD, no carotid bruits Respiratory/Chest: chest non-tender, lungs clear, normal breath sounds, no respiratory distress Cardiovascular: regular rate, rhythm, no edema, no gallop, no JVD Abdomen: normal bowel sounds, non tender, soft, no pulsatile mass Neurologic/Psychiatric: no motor/sensory deficits, alert, normal mood/affect, oriented x 3 Laboratory Results Last 24 Hours Test 03/27/17 05:48 White Blood Count 5.18 K/uL Red Blood Count 3.84 M/uL Hemoglobin 11.5 g/dL Hematocrit 36.4 % Mean Corpuscular Volume 94.8 fL Mean Corpuscular Hemoglobin 29.9 pg Mean Corpuscular Hemoglobin Concent 31.6 g/dl RDW Standard Deviation 55.2 fL RDW Coefficient of Variation 16.3 % Platelet Count 187 K/uL Mean Platelet Volume 9.0 fL Sodium Level 144 mmol/L Potassium Level 3.8 mmol/L Chloride Level 105 mmol/L Carbon Dioxide Level 31 mmol/L Anion Gap 8.0 mmol/L Blood Urea Nitrogen 35 mg/dl Creatinine 0.86 mg/dl Est Creatinine Clear Calc Drug Dose 65.7 ml/min Estimated GFR () 91.0 Estimated GFR (Non- 78.5 BUN/Creatinine Ratio 41.0 Random Glucose 120 mg/dl Calcium Level 9.0 mg/dl Magnesium Level 2.0 mg/dl Total Bilirubin 1.2 mg/dl Direct Bilirubin 0.6 mg/dl Aspartate Amino Transf (AST/SGOT) 80 U/L Alanine Aminotransferase (ALT/SGPT) 68 U/L Alkaline Phosphatase 240 U/L Total Protein 5.8 gm/dl Albumin 2.7 gm/dl Assessment and Plan Pt is an 86 y/o with a history of a-fib on chronic anticoagulation, pacemaker in situ, chronic atrial fibrillation on Xarelto, chronic diastolic CHF, HTN, HLD , and GERD/severe esophageal dysmotility who presents to the ED on 03/11 with altered mental status and weakness. Acute metabolic encephalopathy secondary to aspiration PNA, with Zenker's diverticulum and esophageal dysmotility. Now off TPN and had PEG tube placed. Mental status has remarkably improved since admission, but now remains very drowsy but oriented, still mildly encephalopathic- with intermittent coarse breath sounds, suspect continued aspiration as culprit perhaps of secretions. Has very tight Upper esophageal sphincter below his Zenker's so likelihood of tube feeds regurgitating and aspirating is low as per d/w GI today Previously completed course of 10 days Zosyn,Vanco for Aspiration PNA as well as for HCAP. 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 Encephalopathy evaluation included EEG (no seizures, but with encephalopathy), CT head, brain MRI, no other source of infection found, hyponatremia improved, likely due to infection, did have elevated Ammonia at 34 which improved after BMs, is continuing to move his bowels When becomes encephalopathic, develops Helio-Shrestha breathing pattern Discussed with GI--> would be much better for lungs to get improved prior to general anesthesia and intubation for planned esophageal myomotomy in 2-3 weeks. -perform Chest PT, vibration vest to loosen up secretions, has good cough now -continue bowel regimen , added docusate to PEG -At goal for PEG feeds (80 mls/hr) Impact -follow CXR -place CPAP on for respiratory support when drowsy or sleeping and qhs continuously -Discussed case at length with Interventional GI from [facility] today--> plans for esophageal myomotomy within 2-3 weeks at [facility] which should resolve his tight UES and Zenker's -No evidence of refeeding syndrome, check daily lytes and LFTs which continue to improve Acute on chronic diastolic CHF/Valvular Disease-improving, continues to diurese daily ECHO with suspected pulm HTN and decreased collapsibility of IVC, LVEF 55-60%, no WMAs,right ventricle is severely dilated with nl RVV fxn, mild to moderate mitral regurgitation, moderate to severe TR, Moderate Pulmonary HTN with PA pressure 55 mm/hg, Dilated aortic root 4.9 cm and ascending aorta 4.7 cm. Repeat CXR 03/25 is improved with less pulm edema Continues to diurese -continue CPAP for respiratory support if needed -continue diuresis with IV lasix daily given markedly positive net balance of fluid and evidence of pulm edema on CXR, follow I/Os Chronic A-fib on [facility] AC with Xarelto/Pacemaker in situ-Xarelto was on hold for procedures, rate controlled with metoprolol -did restart Xarelto but now will hold and place on full dose Lovenox just in case needs Esophageal myomotomy sooner (and would need to hold Xarelto for 3 days prior to procedure) -follows with Cardiology routinely as outpt Helio Shrestha respirations-central vs cardiac issues--> resolves with resolution of encephalopathy -CPAP nocturnally and prn during day -will need formal sleep study to eval for Central sleep apnea prior to return to home from [facility] Elevated LFTs-likely secondary to antibiotic use vs acute illness vs TPN use- continue to improve Liver ultrasound shows gallbladder wall thickening and sludge, findings equivocal for cholecystitis -Unable to obtain HIDA. Pt cannot clear secretions when laying flat -no need for HIDA at this point, resolving and no abdominal pain, no other signs of acute philippe Possible seizure prior to admission-seen by Neuro, EEG no seizure activity -No structural brain disease, MRI negative, no further events. 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 -will need outpatient follow up and continued surveillance with Cardiology -good BP control Prophylaxis-Lovenox SQ full dose Dispo-discussed at length with daughter today at bedside, plan to dc to [facility] when tolerating goal tube feeds with plans for outpatient Esophageal myotomy in 2-3 weeks at [facility] with Dr. Montilla vs direct transfer to [facility] for myotomy sooner if has persistent signs of aspiration (as GI feels myotomy will completely cure his aspiration)
[2017-03-27] MEDS ORDERED: FIBERSOURCE HN 1000ML BAG PEG PRN ×2 (17:15)
--- NOTE | 2017-03-27 23:38 | GASTROENTEROLOGY PROGRESS NOTE ---
DATE: 03/27/2017 The results and discussions with the family by Dr. Senior reviewed. I also spoke with the patient directly on Monday regarding plans. At the present time he seems to be tolerating PEG tube feeds well without difficulty and reports no abdominal pain. The family and Dr. Senior had a lengthy discussion over the weekend regarding the Zenker diverticulum and whether endoscopic myotomy may help with some of the swallowing and aspiration issues. At this point, it was decided that the patient should continue to recover from his aspiration pneumonias, treat any congestive heart failure, and continue with tube feeds as tolerated, optimizing his nutritional status. In 1-2 weeks, consideration for myotomy will be made through coordination with Dr. Senior, however, this may require an anesthesiology assessment prior to this procedure. PHYSICAL EXAMINATION: VITAL SIGNS: Today, the patient is currently afebrile at 36.7, blood pressure 114/58, 95% on BiPAP, respirations 18, heart rate 57. GENERAL: The patient is awake, alert and gestures with an okay sign when asked questions. He does currently have a BiPAP mask on. LUNGS: Overall clear to auscultation. ABDOMEN: Soft, flat, nontender, nondistended with good bowel sounds. EXTREMITIES: Without edema. HEART: Normal S1, S2. RECTAL: Deferred. IMPRESSION AND PLAN: Regarding the patient's dysphagia, aspiration pneumonia, Zenker diverticulum, at the present time we will continue tube feeds via the recently placed PEG tube in order to optimize nutrition. Would recommend continuing aggressive pulmonary toilet to optimize respiratory status. In 1-2 weeks as an outpatient, we will consider POEM of the UES region for Zenker's therapy. The patient's LFTs were also noted to be elevated over the past several days and currently bilirubin is down to 1.2, direct 0.6, AST is 80, ALT 68, alk phos is 240. This number is slightly elevated compared to the past several days, for which it has been running in the 200 range. Last week, it was lower in the 160 range. The patient did have a liver ultrasound which suggested sludge in the gallbladder with layering pattern. However, there was no intrahepatic or extrahepatic bile duct dilation with the bile duct of 4 mm. If possible, it may be reasonable for the patient to have an MRCP to exclude any bile duct filling defects that may be responsive with the patient's LFT pattern. This may also be due to the patient's prior use of TPN. If MRCP is not possible, then perhaps a HIDA scan may reveal any high grade biliary obstruction, although I believe this is less likely given the absence of bile duct dilation. At this time, we will sign off. Please contact us if there is any change in the patient's status. Once discharge planning is complete, will make arrangement for the patient to be seen by Dr. Lowery in the clinic over the next week or two and with the final decision about myotomy afterwards. ZORA
[2017-03-28] VITALS (8 sets, daily range): BP systolic 128–142; BP diastolic 83–94; PULSE 63–79; TEMP 36.7–37.1; O2SAT 92–99
[2017-03-28] MEDS: ALBUT/IPRATROP 3MG/0.5MG NEB 3 ML VIAL INH SCH ×3 (03:10→11:02)
[2017-03-28] MEDS: ENOXAPARIN 80 MG/0.8 ML SYR SQ SCH (06:01)
[2017-03-28] MEDS: LEVETIRACETAM SOLN 500 MG/5 ML UDP PEG SCH (06:01)
[2017-03-28] MEDS: FUROSEMIDE INJ 20 MG in SYRINGE 0 ML IV SCH (08:22)
[2017-03-28] MEDS: FINASTERIDE 5 MG TAB PEG SCH (08:22)
[2017-03-28] MEDS: DOCUSATE SODIUM 100 MG/10 ML UDC PEG SCH (08:22)
[2017-03-28] MEDS: RANITIDINE HCL 150 MG TAB GT SCH (08:22)
[2017-03-28] MEDS: LISINOPRIL 2.5 MG TAB PEG SCH (08:23)
[2017-03-28] MEDS: TAMSULOSIN HCL 0.4 MG CAP PO SCH (08:23)
[2017-03-28] MEDS ORDERED: FIBERSOURCE HN 1000ML BAG PEG SCH ×2 (10:45)
[2017-03-28] MEDS ORDERED: LVNIS80 SQ (11:36)
[2017-03-28] MEDS ORDERED: FLM4 PO ×2 (11:36)
[2017-03-28] MEDS ORDERED: LEVE500T13 PO ×2 (11:38)
[2017-03-28] MEDS ORDERED: XRL20 PO ×2 (11:43)
[2017-03-28] MEDS ORDERED: Fibersource 1.2 Cal PEG ×2 (11:46)
[2017-03-28] MEDS ORDERED: FURO-85 PO ×2 (11:56)
--- NOTE | 2017-03-28 11:57 | Discharge Instructions ---
Discharge Instructions Date of Service Mar 28, 2017. Admission Reason for Admission: Altered Mental Status, Hypoxia Discharge Discharge Diagnosis / Problem: Altered mental status, difficulty swallowing, zenkers diverticulum Discharge Goals Goal(s): Decrease discomfort, Improve function, Increase independence, Improve disease control, Learn about illness, Diagnostic testing, Therapeutic intervention, Prevent Disease Progression Activity Recommendations Activity Limitations: resume your previous activity Exercise/Sports Limitations: as tolerated . Instructions / Follow-Up Instructions / Follow-Up Patient to be discharged to [facility] Please note changes in medications Keppra 500 mg tablet twice a day through PEG tube Will restart back on xarelto 20 mg tablet at night through PEG tube Start flomax 0.4 mg once daily through PEG tube Start lasix 20 mg tablet once daily through PEG tube Toprol XL medication was stopped due to low heart rate, can be continued as an outpatient if pulse stable Tube feed recommendations: Fibersource HN with a goal of 65 mL/hr - Fibersource HN @ 65 mL/hr will be providing Pt with ~ 1870 Kcals, ~ 85 g protein, ~ 125% RDI, and ~ 1260 mL of free water, each day - Replete electrolytes PRN. - Add free water flushes, as needed - Will continue to monitor Pt's labs, weights, tolerance to enteral nutrition, plan of care Please follow up with Dr Little in 1-2 weeks Please follow up with Dr Lowery in 1 week Follow up with Dr Gabriel in 1 week Please leave galvez in on discharge Recommend BiPAP at night and at rest during the day Current Hospital Diet Patient's current hospital diet: Low Sodium Diet (2gm Na), Low Fat Diet Discharge Diet Recommended Diet: N/A (Tube feeds with fibersource as described above) Procedures Procedures Performed: EGD WITH PEG TUBE PLACEMENT Pending Studies Studies pending at discharge: no Laboratory Results Lipid Panel Test 03/21/17 06:47 Range/Units Triglycerides Level 81 0-150 mg/dl Medical Emergencies . Who to Call and When: Medical Emergencies: If at any time you feel your situation is an emergency, please call 911 immediately. . Non-Emergent Contact Non-Emergency issues call your: Primary Care Provider Call Non-Emergent contact if: you have any medication questions . . "Provider Documentation" section prepared by Roosevelt Muñiz. . VTE Core Measure Inpt VTE Proph given/why not?: Enoxaparin (Lovenox)SQ, Other Anticoagulation
--- NOTE | 2017-03-28 15:35 | Discharge Summary ---
Discharge Summary Date of Service Mar 28, 2017. Discharge Summary Admission Date: Mar 11, 2017 at 16:47 Discharge Date: Mar 28, 2017 Discharge Disposition: [facility] facility ([facility]) Principal Diagnosis: Metabolic encephalopathy, zenkers diverticulum Consultations: Neurology Gastroenterology Infectious Disease Medication Reconciliation New Medications: Furosemide (Lasix) 20 Mg Tab 20 MG PO DAILY, #30 TAB Levetiracetam (Keppra) 500 Mg Tab 500 MG PO BID, #60 TAB Rivaroxaban (Xarelto) 20 Mg Tab 20 MG PO QDD, #30 TAB Tamsulosin HCl (Tamsulosin HCl) 0.4 Mg Cap 0.4 MG PO QAM, #30 CAP [Fibersource 1.2 Julio Cesar] () 1000 ML LIQD 1000 ML PEG UD for Tube Feeding target rate 65 cc/hr for 24 hr/day Continued Medications: Atorvastatin (Lipitor) 40 Mg Tab 40 MG PO QPM, TAB Cetirizine (Zyrtec) 10 Mg Tab 10 MG PO QPM Dextromethorphan-Guaifenesin (Guaifenesin Dm) 1 Syp Syp 10 ML PO Q4H PRN for Cough DO NOT EXCEED 6 DOSES/DAY Docusate Sodium (Docusate Sodium) 100 Mg Cap 100 MG PO BID Echinacea (Echinacea) 400 Mg Cap 400 MG PO TID PRN for URI Ferrous Sulfate (Kp Ferrous Sulfate) 325 Mg Tab 325 MG PO BID Finasteride (Proscar) 5 Mg Tab 5 MG PO QPM, TAB Hydrocortisone 2.5% (Rectal) (Anusol-Hc 2.5%) 2.5 % Cre 1 APPLN TOP BID for 7 Days, #30 GM 1 Refill Lisinopril (Zestril) 2.5 Mg Tab 2.5 MG PO QAM Magnesium Oxide (Mag-Ox) 400 Mg Tab 400 MG PO QAM Pantoprazole (Protonix) 40 Mg Tab 40 MG PO BID Wheat Dextrin (Benefiber Drink Mix) 1 Pow Pow 2 TSP PO DAILY Discontinued Medications: Levofloxacin (Levaquin) 750 Mg Tab 750 MG PO DAILY, TAB STARTED 03/06/17 Metoprolol Succinate (Toprol Xl) 25 Mg Tabcr 25 MG PO QPM Rivaroxaban (Xarelto) 15 Mg Tab 15 MG PO QPM Discharge Exam Review of Systems: Constitutional: No fever, No chills, No sweats, No weakness Eyes: No worsening of vision, No eye pain, No redness, No discharge ENT: + trouble swallowing, No hearing loss, No unusual epistaxis, No nasal symptoms, No sore throat Respiratory: + cough, + sputum, No wheezing, No hemoptysis Cardiovascular: No chest pain, No orthopnea, No PND, No edema Abdomen: No pain, No nausea, No diarrhea Musculoskeletal: No joint pain, No muscle pain, No swelling, No calf pain Genitourinary - Male: No hematuria, No dysuria, No urinary frequency, No urinary urgency Neurologic: No memory loss, No paralysis, No weakness, No numbness/tingling Psychiatric: No depression symptoms, No anhedonism, No anxiety, No insomnia Endocrine: No fatigue, No excessive thirst, No excessive urination Integumentary: No rash, No itch Physical Exam: General Appearance: WD/WN, no apparent distress Eyes: normal inspection, PERRL, EOMI, sclerae normal ENT: normal ENT inspection, hearing grossly normal, TMs normal, pharynx normal Neck: supple, no adenopathy, thyroid normal, no JVD Respiratory/Chest: chest non-tender, lungs clear, normal breath sounds, no respiratory distress Cardiovascular: regular rate, rhythm, no edema, no gallop, no JVD Abdomen / GI: normal bowel sounds, non tender, soft, no organomegaly Extremities: normal inspection, no calf tenderness, normal capillary refill , no pedal edema Neurologic/Psychiatric: no motor/sensory deficits, alert, normal mood/affect , normal reflexes Skin: normal color, warm/dry, no rash Lymphatic: no adenopathy Hospital Course Pt is an 86 y/o with a history of a-fib on chronic anticoagulation, pacemaker in situ, chronic atrial fibrillation on Xarelto, chronic diastolic CHF, HTN, HLD , and GERD/severe esophageal dysmotility who presents to the ED on 03/11 with altered mental status and weakness. Acute metabolic encephalopathy secondary to aspiration PNA, with Zenker's diverticulum and esophageal dysmotility. Now off TPN and had PEG tube placed. Mental status has remarkably improved since admission, but now remains very drowsy but oriented, still mildly encephalopathic- with intermittent coarse breath sounds, suspect continued aspiration as culprit perhaps of secretions. Has very tight Upper esophageal sphincter below his Zenker's so likelihood of tube feeds regurgitating and aspirating is low as per d/w GI today Previously completed course of 10 days Zosyn,Vanco for Aspiration PNA as well as for HCAP. 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 Encephalopathy evaluation included EEG (no seizures, but with encephalopathy), CT head, brain MRI, no other source of infection found, hyponatremia improved, likely due to infection, did have elevated Ammonia at 34 which improved after BMs, is continuing to move his bowels When becomes encephalopathic, develops Helio-Shrestha breathing pattern Discussed with GI--> would be much better for lungs to get improved prior to general anesthesia and intubation for planned esophageal myomotomy in 2-3 weeks. -perform Chest PT, vibration vest to loosen up secretions, has good cough now -continue bowel regimen, added docusate to PEG -Initially placed on IMPACT tube feeds, then transitioned to fibersource for ease on discharge, goal rate 65 cc/hr, can further titrate at [facility] -place CPAP on for respiratory support when drowsy or sleeping and qhs continuously -Discussed case at length with Interventional GI from [place]--> plans for esophageal myomotomy within 2-3 weeks at [facility] which should resolve his tight UES and Zenker's -No evidence of refeeding syndrome, check daily lytes and LFTs which continue to improve Acute on chronic diastolic CHF/Valvular Disease-improving, continues to diurese daily ECHO with suspected pulm HTN and decreased collapsibility of IVC, LVEF 55-60%, no WMAs,right ventricle is severely dilated with nl RVV fxn, mild to moderate mitral regurgitation, moderate to severe TR, Moderate Pulmonary HTN with PA pressure 55 mm/hg, Dilated aortic root 4.9 cm and ascending aorta 4.7 cm. 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 AC with Xarelto/Pacemaker in situ-Xarelto was on hold for procedures, rate controlled with metoprolol -can restart Xarelto, was placed on full dose Lovenox in hospital for concern for immediate esophageal myomotomy sooner (would need to hold Xarelto for 3 days prior to procedure) -follows with Cardiology routinely as outpt Helio Shrestha respirations-central vs cardiac issues--> resolves with resolution of encephalopathy -CPAP nocturnally and prn during day -will need formal sleep study to eval for Central sleep apnea prior to return to home from SNF Elevated LFTs-likely secondary to antibiotic use vs acute illness vs TPN use- continue to improve Liver ultrasound shows gallbladder wall thickening and sludge, findings equivocal for cholecystitis -Unable to obtain HIDA. Pt cannot clear secretions when laying flat -no need for HIDA at this point, resolving and no abdominal pain, no other signs of acute philippe Possible seizure prior to admission-seen by Neuro, EEG no seizure activity -No structural brain disease, MRI negative, no further events. 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 -will need outpatient follow up and continued surveillance with Cardiology -good BP control DVT Prophylaxis-xarelto Total Time Spent: Greater than 30 minutes This includes examination of the patient, discharge planning, medication reconciliation, and communication with other providers. Discharge Instructions Please refer to the electronic Patient Visit Report (Discharge Instructions) for additional information. Additional Copies To Wesley Gabriel M.D.
== END 2017-03-28 14:20 | DRG 177 ==
LOC: EDBD 14:10 → C.EDC 14:12 → C.MED 16:47 → ENRESERV 17:06 → C.MED 18:18 → UNDOADMIN 18:18 → ENRESERV 03-16 18:19 → C.2T 03-16 19:58 → C.2E 03-22 04:12
PROVIDERS: ADMIT Hospitalist; ATTEND Hospitalist
PROC: 0T9B70Z Drainage of Bladder with Drainage Device, Via Natural or Artificial Opening (ICD-10-PCS; 2017-03-11)
PROC: 05HM33Z Insertion of Infusion Device into Right Internal Jugular Vein, Percutaneous Approach (ICD-10-PCS; 2017-03-16)
PROC: 0DH64UZ Insertion of Feeding Device into Stomach, Percutaneous Endoscopic Approach (ICD-10-PCS; principal; 2017-03-22 15:25)
DX: J69.0 Pneumonitis due to inhalation of food and vomit (principal); G93.41 Metabolic encephalopathy; J96.01 Acute respiratory failure with hypoxia; I50.33 Acute on chronic diastolic (congestive) heart failure; E87.1 Hypo-osmolality and hyponatremia; I47.2 Ventricular tachycardia; E46 Unspecified protein-calorie malnutrition; R06.3 Periodic breathing; T82.534A Leakage of infusion catheter, initial encounter; Y84.8 Other medical procedures as the cause of abnormal reaction of the patient, or of later complication, without mention of misadventure at the time of the procedure; Y95 Nosocomial condition; R56.9 Unspecified convulsions; I11.0 Hypertensive heart disease with heart failure; R79.1 Abnormal coagulation profile; R79.89 Other specified abnormal findings of blood chemistry; D50.9 Iron deficiency anemia, unspecified; D63.8 Anemia in other chronic diseases classified elsewhere; I48.2 Chronic atrial fibrillation; K22.5 Diverticulum of esophagus, acquired; K21.9 Gastro-esophageal reflux disease without esophagitis; E78.5 Hyperlipidemia, unspecified; I71.2 Thoracic aortic aneurysm, without rupture; I27.20 Pulmonary hypertension, unspecified; I07.1 Rheumatic tricuspid insufficiency; Z66 Do not resuscitate; Z87.01 Personal history of pneumonia (recurrent); Z95.0 Presence of cardiac pacemaker; Z86.79 Personal history of other diseases of the circulatory system; Z79.01 Long term (current) use of anticoagulants; Z79.899 Other long term (current) drug therapy; Z80.0 Family history of malignant neoplasm of digestive organs

== ENCOUNTER → 2017-03-29 | Outpatient (CLI) | payer OTHER, BC ==
[~2017-03-29] MED LIST changes: +CLC100X PO; +ECHI400C11 PO; +FLM4 PO; +FURO-85 PO; +Fibersource 1.2 Cal PEG; +LEVE500T13 PO; +LEVO1TAB35 PO; +LVNIS80 SQ; +WHEAPOW PO; +XRL20 PO
[2017-03-29 08:48] LABS: HEMATOCRIT 38.1 % (42-52); MEAN CORPUSCULAR HEMOGLOBIN 28.9 pg (25-34); MEAN CORPUSCULAR HGB CONC 30.4 g/dl (32-36); MEAN PLATELET VOLUME 9.8 fL (7.4-10.4); PLATELET COUNT 258 K/uL (130-400); RED BLOOD COUNT 4.01 M/uL (4.7-6.1); WHITE BLOOD COUNT 4.93 K/uL (4.8-10.8)
[2017-03-29 09:01] LABS: BLOOD UREA NITROGEN 36 mg/dl (7-18); BUN/CREATININE RATIO 39.9 (10-20); CALCIUM 9.2 mg/dl (8.5-10.1); CARBON DIOXIDE 28 mmol/L (21-32); CHLORIDE 106 mmol/L (98-107); CREATININE 0.89 mg/dl (0.60-1.40); GLUCOSE 117 mg/dl (70-99); POTASSIUM 3.5 mmol/L (3.5-5.1); SODIUM 142 mmol/L (136-145)
== END | disposition home or self-care (01) ==
LOC: C.LABFOXAN 08:21
PROVIDERS: ATTEND Internal Medicine
DX: K22.2 Esophageal obstruction (principal); I48.91 Unspecified atrial fibrillation; I43 Cardiomyopathy in diseases classified elsewhere

== ENCOUNTER → 2017-04-03 | Outpatient (CLI) | payer OTHER, BC ==
[~2017-04-03] MED LIST changes: -BCTCR/30 EXT; -DOCU-94 PO; -FLUT0.15 NAE; -GUAI600T33 PO; -LEVO1TAB35 PO; -LVNIS80 SQ; -MECL1TAB42 PO; -MELA1TAB5 PO; -METO25TA3 PO; -ONDA4TAB46 PO; -RANI150T3 PO; -RIVA1.5T PO; -VNTHFA/IN INH
[2017-04-03 09:01] LABS: BLOOD UREA NITROGEN 34 mg/dl (7-18); BUN/CREATININE RATIO 42.4 (10-20); CALCIUM 8.6 mg/dl (8.5-10.1); CARBON DIOXIDE 29 mmol/L (21-32); CHLORIDE 105 mmol/L (98-107); GLUCOSE 107 mg/dl (70-99); POTASSIUM 3.8 mmol/L (3.5-5.1); SODIUM 140 mmol/L (136-145)
== END ==
LOC: C.LABFOXAN 08:36
PROVIDERS: ATTEND Internal Medicine
DX: K22.2 Esophageal obstruction (principal); I48.91 Unspecified atrial fibrillation; I43 Cardiomyopathy in diseases classified elsewhere

== ENCOUNTER → 2017-04-05 | Outpatient (CLI) | payer OTHER, BC ==
[2017-04-05 09:57] LABS: HEMATOCRIT 31.9 % (42-52); MEAN CORPUSCULAR HEMOGLOBIN 30.3 pg (25-34); MEAN CORPUSCULAR HGB CONC 32.6 g/dl (32-36); MEAN PLATELET VOLUME 10.1 fL (7.4-10.4); PLATELET COUNT 215 K/uL (130-400); RED BLOOD COUNT 3.43 M/uL (4.7-6.1); WHITE BLOOD COUNT 4.55 K/uL (4.8-10.8)
[2017-04-05 10:09] LABS: INR 1.2 (0.9-1.1); PARTIAL THROMBOPLASTIN RATIO 1.1
[2017-04-05 10:12] LABS: ALT/SGPT 57 U/L (12-78); BLOOD UREA NITROGEN 25 mg/dl (7-18); BUN/CREATININE RATIO 33.5 (10-20); CALCIUM 8.6 mg/dl (8.5-10.1); CARBON DIOXIDE 28 mmol/L (21-32); CHLORIDE 105 mmol/L (98-107); CREATININE 0.75 mg/dl (0.60-1.40); GLUCOSE 115 mg/dl (70-99); POTASSIUM 3.7 mmol/L (3.5-5.1); SODIUM 138 mmol/L (136-145)
[2017-04-05 10:18] LABS: ALKALINE PHOSPHATASE 266 U/L (45-117); AST/SGOT 61 U/L (15-37); PREALBUMIN 20.8 mg/dl (20-40)
== END | disposition home or self-care (01) ==
LOC: C.LABFOXAN 09:13
PROVIDERS: ATTEND Internal Medicine
DX: K22.2 Esophageal obstruction (principal); I48.91 Unspecified atrial fibrillation; I43 Cardiomyopathy in diseases classified elsewhere

== ENCOUNTER 2017-04-14 11:30 | Emergency (ER) | payer OTHER ==
[~2017-04-14] VITALS: Ht 180.3 cm; Wt 75.0 kg
[~2017-04-14 11:30] MED LIST changes: +ATOR-24 PEG; -ATOR-24 PO; +CETI10TA84 PEG; -CETI10TA84 PO; +FERR1TAB13 PEG; -FERR1TAB13 PO; +FINA5TAB PEG; -FINA5TAB PO; -LEVE500T13 PO; +PANT40TA PEG; -PANT40TA PO
[2017-04-14 11:39] VITALS: Ht 180.3 cm; Wt 75.0 kg
[2017-04-14] MEDS ORDERED: MOMLX PEG (11:59)
[2017-04-14] MEDS ORDERED: NUTRLIQ14 PEG (11:59)
[2017-04-14] MEDS ORDERED: FLUT0.15 (11:59)
[2017-04-14] MEDS ORDERED: LEVE100S10 PEG (11:59)
[2017-04-14] MEDS ORDERED: TAMS0.4C38 PEG (11:59)
[2017-04-14] MEDS ORDERED: DOCU5LIQ PEG (11:59)
[2017-04-14] MEDS ORDERED: RIVA1TAB4 PEG (11:59)
[2017-04-14] MEDS ORDERED: MGNG500 PEG (11:59)
[2017-04-14] MEDS ORDERED: IPRASOL4 INH (11:59)
[2017-04-14] MEDS ORDERED: KCLI20/100 PEG (11:59)
--- NOTE | 2017-04-14 12:30 | EMERGENCY ROOM VISIT NOTE ---
History Report prepared by Ruby: Roldan Booth Under the Supervision of: Dr. Sandra Alfaro M.D. First contact with patient: 12:16 Chief Complaint: VOMITING Stated Complaint: VOMITING Nursing Triage Summary: pt arrived als from [facility] reported pt vomiting. pt has peg tube today was the first day of bolus feeding pt began to vomit, ems reports when they arrived pt was activly vomiting the administered 4mg iv zofran pt is no longer vomiting hx aspiration pneumonia History of Present Illness The patient is an 86 year old male with a history of aspiration pneumonia who presents to the Emergency Room via ALS from [facility] with complaints of episodes of vomiting that started earlier today. He says that he has a PEG tube and today was the first day of bolus feeding. The patient notes that the medications made him sick, and he vomited 3 or 4 times about a half hour after the medications were given by his PEG tube. He states that he was vomiting bile. The patient denies any pain. He was administered 4 mg IV Zofran by EMS, and the patient was noted to stop vomiting. The patient notes that he is sleepy. Source of History: patient, EMS, nursing staff Onset: Earlier today Position: other (global - vomiting) Symptom Intensity: 3 or 4 episodes Quality: other (vomiting bile) Timing: other (episodes) Note: Associated symptoms: Denies any pain. Says that he is sleepy. Review of Systems See HPI for pertinent positives & negatives. A total of 10 systems reviewed and were otherwise negative. Past Medical & Surgical Medical Problems: (1) Acute bronchitis (2) Anemia (3) Arm paresthesia, right (4) Arm paresthesia, right (5) GERD (gastroesophageal reflux disease) (6) HTN (hypertension) (7) Hyperlipidemia (8) URI (upper respiratory infection) Surgical Problems: (1) H/O hernia repair Family History GI malignancy Social History Smoking Status: Former Smoker Alcohol Use: none Drug Use: none Marital Status: Housing Status: assisted living Occupation Status: retired Current/Historical Medications Scheduled Atorvastatin (Lipitor), 40 MG PEG QPM Cetirizine (Zyrtec), 10 MG PEG QAM Docusate Sodium (Docusate Sodium), 100 MG PEG QAM Ferrous Sulfate (Kp Ferrous Sulfate), 325 MG PEG BID Finasteride (Proscar), 5 MG PEG QPM Fluticasone Propionate (Nasal) (Flonase Allergy Relief), 1 SPRAY NA QAM Hydrocortisone 2.5% (Rectal) (Anusol-Hc 2.5%), 1 APPLN TOP BID Ipratropium-Albuterol (Duoneb), 1 TREATMENT INH Q4H Levetiracetam (Keppra), 5 ML PEG BID Magnesium Gluconate (Mag-G), 500 MG PEG DAILY Nutritional Supplements (Nutren 2.0), 250 ML PEG QID Pantoprazole (Protonix), 40 MG PEG BID Potassium Chloride (Potassium Chloride), 15 ML PEG QAM Rivaroxaban (Xarelto), 20 MG PEG DAILY Tamsulosin Hcl (Flomax), 0.4 MG PEG HS Scheduled PRN Magnesium Hydroxide (Milk of Magnesia), 30 ML PEG DIRECTED PRN for Constipation Allergies Coded Allergies: No Known Allergies (Verified , 04/14/17) Physical Exam Vital Signs Date Time Temp Pulse Resp B/P (MAP) Pulse Ox O2 Delivery O2 Flow Rate FiO2 04/14/17 18:29 36.6 79 18 110/74 97 04/14/17 17:01 116/67 04/14/17 16:50 132/87 04/14/17 15:41 88 22 95 04/14/17 15:36 86 23 04/14/17 15:31 107/66 04/14/17 15:06 80 21 04/14/17 15:01 106/73 04/14/17 14:36 73 17 04/14/17 14:31 103/61 04/14/17 14:30 85 16 04/14/17 14:22 77 04/14/17 14:01 111/65 04/14/17 14:00 73 12 04/14/17 13:52 111/63 04/14/17 11:39 36.6 76 18 93/59 93 Room Air Physical Exam Vital signs reviewed. General: Elderly, chronically ill-appearing 86 year old male, in no significant distress. No active vomiting. HEENT: No scleral icterus, PERRLA, neck supple. Atraumatic. Cardiovascular: Regular rate and rhythm, no extra sounds. Pulmonary: Clear to auscultation bilaterally, normal work of breathing. Abdomen: PEG tube in place. Soft, nontender, nondistended, positive bowel sounds. No tympany to percussion. Musculoskeletal: Atraumatic, no peripheral edema. Neurologic: Patient awake alert and oriented x 3, answers with 1-2 words sentences. Skin: Warm, dry, no rash Medical Decision & Procedures ER Provider Diagnostic Interpretation: X-ray results as stated below per interpretation by me and the radiologist: AP CHEST WITH ABDOMINAL SERIES CLINICAL HISTORY: Small bowel obstruction. Vomiting. FINDINGS: 2 AP sitting chest radiographs are compared to study dated 03/25/2017 and correlated with chest CT dated 03/13/2017. The examination is degraded by patient rotation. A single lead cardiac pacemaker is unchanged in position. The heart is markedly enlarged and there is atherosclerotic calcification of the thoracic aorta. The pulmonary vascular is noncongested. Chronic interstitial thickening is unchanged. No no airspace consolidation, large pleural effusion, or pneumothorax is seen. The skeletal structures are osteopenic. The bony thorax is grossly intact. Supine and decubitus abdominal radiographs are compared to study dated 01/18/2017. A gastrostomy tube projects over the left upper quadrant. There is a nonobstructed abdominal bowel gas pattern. There is rectosigmoid fecal impaction and severe constipation. Enteric contrast is present in the rectum. No evidence of intraperitoneal free air is seen. There are no abnormal abdominal calcifications. There is advanced atherosclerotic calcification of the abdominal aorta. There is moderate to advanced lumbosacral spondylosis. The lumbosacral spine and bony pelvis appear intact. IMPRESSION: 1. Cardiomegaly and cardiac pacemaker. There is no radiographic evidence of congestive failure. 2. No airspace consolidation or large pleural effusion is identified. 3. Nonobstructed abdominal bowel gas pattern. 4. There is rectosigmoid fecal impaction and severe constipation. 5. A gastrostomy tube projects over the left upper quadrant. Electronically signed by: lC Petty M.D. 04/14/2017 1:54 PM Dictated Date/Time: 04/14/2017 1:50 PM Laboratory Results 04/14/17 13:12 Red Blood Count 3.60, Mean Corpuscular Volume 91.7, Mean Corpuscular Hemoglobin 29.7, Mean Corpuscular Hemoglobin Concent 32.4, Mean Platelet Volume 9.5, Neutrophils (%) (Auto) 88.4, Lymphocytes (%) (Auto) 5.2, Monocytes (%) (Auto) 5.2, Eosinophils (%) (Auto) 0.8, Basophils (%) (Auto) 0.2, Neutrophils # (Auto) 5.58, Lymphocytes # (Auto) 0.33, Monocytes # (Auto) 0.33, Eosinophils # (Auto) 0.05, Basophils # (Auto) 0.01 04/14/17 13:12 Test 04/14/17 13:12 04/14/17 13:27 White Blood Count 6.31 K/uL (4.8-10.8) Red Blood Count 3.60 M/uL (4.7-6.1) Hemoglobin 10.7 g/dL (14.0-18.0) Hematocrit 33.0 % (42-52) Mean Corpuscular Volume 91.7 fL (80-100) Mean Corpuscular Hemoglobin 29.7 pg (25-34) Mean Corpuscular Hemoglobin Concent 32.4 g/dl (32-36) Platelet Count 204 K/uL (130-400) Mean Platelet Volume 9.5 fL (7.4-10.4) Neutrophils (%) (Auto) 88.4 % Lymphocytes (%) (Auto) 5.2 % Monocytes (%) (Auto) 5.2 % Eosinophils (%) (Auto) 0.8 % Basophils (%) (Auto) 0.2 % Neutrophils # (Auto) 5.58 K/uL (1.4-6.5) Lymphocytes # (Auto) 0.33 K/uL (1.2-3.4) Monocytes # (Auto) 0.33 K/uL (0.11-0.59) Eosinophils # (Auto) 0.05 K/uL (0-0.5) Basophils # (Auto) 0.01 K/uL (0-0.2) RDW Standard Deviation 53.3 fL (36.4-46.3) RDW Coefficient of Variation 15.8 % (11.5-14.5) Immature Granulocyte % (Auto) 0.2 % Immature Granulocyte # (Auto) 0.01 K/uL (0.00-0.02) Anion Gap 5.0 mmol/L (3-11) Est Creatinine Clear Calc Drug Dose 59.2 ml/min Estimated GFR () 83.7 Estimated GFR (Non- 72.2 BUN/Creatinine Ratio 24.1 (10-20) Calcium Level 8.7 mg/dl (8.5-10.1) Magnesium Level 2.0 mg/dl (1.8-2.4) Total Bilirubin 1.4 mg/dl (0.2-1) Direct Bilirubin 0.6 mg/dl (0-0.2) Aspartate Amino Transf (AST/SGOT) 50 U/L (15-37) Alanine Aminotransferase (ALT/SGPT) 41 U/L (12-78) Alkaline Phosphatase 232 U/L (45-117) Total Protein 6.4 gm/dl (6.4-8.2) Albumin 2.9 gm/dl (3.4-5.0) Lipase 317 U/L (73-393) Bedside Troponin I < 0.030 ng/ml (0-0.045) Laboratory results per my review. Medications Administered Medications (Trade) Dose Ordered Sig/Tanesha Route Start Time Stop Time Status Last Admin Dose Admin Sodium Chloride 250 ml @ 999 mls/hr Q16M STAT IV 04/14/17 12:33 04/14/17 12:48 DC 04/14/17 13:15 999 MLS/HR Sodium Chloride 1,000 ml @ 125 mls/hr Q8H STAT IV 04/14/17 12:33 04/14/17 19:06 DC 04/14/17 12:33 125 MLS/HR Miscellaneous (Soap Suds Enema) 1 ea NOW STAT FL 04/14/17 14:42 04/14/17 14:43 DC 04/14/17 14:42 1 EA ECG Indication: vomiting Rate (beats per minute): 79 Rhythm: atrial fibrillation, other (demand ventricular pacemaker) Findings: PVC (occasional), other (repolarization abnormality) ED Course 1225: Past medical records reviewed. The patient was evaluated in room C9. A complete history and physical examination was performed. 1233: Ordered NSS 1000 ml @ 125 mls/hr IV, NSS 250 ml @ 999 mls/hr IV. 1442: Ordered Soap Suds Enema 1 ea FL. 1600: I reevaluated and updated the patient. 1745: Upon reevaluation, the patient appeared to have improvement of his symptoms. I discussed findings with him. He verbalized agreement of the treatment plan. He was discharged home. Medical Decision Differential diagnosis: Etiologies such as gastroenteritis, food borne illness, infections, appendicitis , diverticulitis, inflammatory bowel disease, obstruction, GI bleed, biliary pathology, PEG tube dislodgement, as well as others were entertained. This pt was evaluated and appeared to be in no distress. IV access was obtained and lab work was drawn. Pt was hydrated with NSS. ABD XR series is negative for SBO, significant for contipation. ? fecal impaction. PEG is in good position. Pt was given an enema by nursing staff with moderate results. Soft stool was palpated in the rectal vault. Pt was feeling well to be d/c. I suspect constipation to be the etiology of retching. Pt was advised to use miralax 2 cap q 8 hours for BM as needed. He will f/u with PCP this week and return to the ED for worsening of symptoms or any medical concerns. Medication Reconcilliation Current Medication List: was personally reviewed by me Blood Pressure Screening Patient's blood pressure: Normal blood pressure Impression Primary Impression: Obstipation Additional Impression: Vomiting Scribe Attestation The scribe's documentation has been prepared under my direction and personally reviewed by me in its entirety. I confirm that the note above accurately reflects all work, treatment, procedures, and medical decision making performed by me. Departure Information Dispostion Home / Self-Care Referrals Tania Kowalski (PCP) Wesley Gabriel M.D. Patient Instructions My [facility] Additional Instructions Diagnosis: Fecal retention Your feeding tube is in good position. Drink plenty of fluids. Miralax 17 gm every 8 hours as needed for BM. Follow up with your doctor this week for reevaluation. Return to the ED for worsening of symptoms or any medical concerns. Problem Qualifiers
[2017-04-14] MEDS ORDERED: SODIUM CHLORIDE 0.9% 1000ML 1,000 ML IV STA (12:33)
[2017-04-14] MEDS ORDERED: SODIUM CHLORIDE 0.9% 250ML 250 ML IV STA (12:33)
[2017-04-14 13:44] LABS: BASO % 0.2 %; BASO ABS # 0.01 K/uL (0-0.2); COMPLETE YES; EOS % 0.8 %; IG% 0.2 %; LYMPH % 5.2 %; LYMPH ABS # 0.33 K/uL (1.2-3.4); MEAN CELL VOLUME 91.7 fL (80-100); MEAN CORPUSCULAR HEMOGLOBIN 29.7 pg (25-34); MEAN CORPUSCULAR HGB CONC 32.4 g/dl (32-36); MEAN PLATELET VOLUME 9.5 fL (7.4-10.4); MONO % 5.2 %; NEUT % 88.4 %; PLATELET COUNT 204 K/uL (130-400); WHITE BLOOD COUNT 6.31 K/uL (4.8-10.8)
--- NOTE | 2017-04-14 13:55 | DIAGNOSTIC IMAGING REPORT ---
AP CHEST WITH ABDOMINAL SERIES CLINICAL HISTORY: Small bowel obstruction. Vomiting. FINDINGS: 2 AP sitting chest radiographs are compared to study dated 03/25/2017 and correlated with chest CT dated 03/13/2017. The examination is degraded by patient rotation. A single lead cardiac pacemaker is unchanged in position. The heart is markedly enlarged and there is atherosclerotic calcification of the thoracic aorta. The pulmonary vascular is noncongested. Chronic interstitial thickening is unchanged. No no airspace consolidation, large pleural effusion, or pneumothorax is seen. The skeletal structures are osteopenic. The bony thorax is grossly intact. Supine and decubitus abdominal radiographs are compared to study dated 01/18/2017. A gastrostomy tube projects over the left upper quadrant. There is a nonobstructed abdominal bowel gas pattern. There is rectosigmoid fecal impaction and severe constipation. Enteric contrast is present in the rectum. No evidence of intraperitoneal free air is seen. There are no abnormal abdominal calcifications. There is advanced atherosclerotic calcification of the abdominal aorta. There is moderate to advanced lumbosacral spondylosis. The lumbosacral spine and bony pelvis appear intact. IMPRESSION: 1. Cardiomegaly and cardiac pacemaker. There is no radiographic evidence of congestive failure. 2. No airspace consolidation or large pleural effusion is identified. 3. Nonobstructed abdominal bowel gas pattern. 4. There is rectosigmoid fecal impaction and severe constipation. 5. A gastrostomy tube projects over the left upper quadrant. Electronically signed by: Cl Petty M.D. 04/14/2017 1:54 PM Dictated Date/Time: 04/14/2017 1:50 PM
[2017-04-14 14:06] LABS: BUN/CREATININE RATIO 24.1 (10-20); CALCIUM 8.7 mg/dl (8.5-10.1); CREATININE 0.95 mg/dl (0.60-1.40); POTASSIUM 4.4 mmol/L (3.5-5.1)
[2017-04-14] MEDS ORDERED: SOAP SUDS ENEMA PR STA (14:42)
[2017-04-14 18:29] VITALS: BP 110/74; PULSE 79; TEMP 36.6; O2SAT 97
== END 2017-04-14 18:30 ==
LOC: EDBD 11:30 → C.EDC 11:31
DX: K59.00 Constipation, unspecified (principal); R11.10 Vomiting, unspecified; Z93.1 Gastrostomy status; D64.9 Anemia, unspecified; K21.9 Gastro-esophageal reflux disease without esophagitis; I10 Essential (primary) hypertension; E78.5 Hyperlipidemia, unspecified; I51.7 Cardiomegaly; R20.2 Paresthesia of skin; Z80.0 Family history of malignant neoplasm of digestive organs; Z87.891 Personal history of nicotine dependence; Z95.0 Presence of cardiac pacemaker

== ENCOUNTER → 2017-05-03 | Outpatient (CLI) | payer OTHER ==
[~2017-05-03] MED LIST changes: -CLC100X PO; -DEXTSYP27 PO; +DOCU5LIQ PEG; -ECHI400C11 PO; -FLM4 PO; +FLUT0.15; -FURO-85 PO; -Fibersource 1.2 Cal PEG; +IPRASOL4 INH; +KCLI20/100 PEG; +LEVE100S10 PEG; -LISI-789 PO; -MAGN400T6 PO; +MGNG500 PEG; +MOMLX PEG; +NUTRLIQ14 PEG; +RIVA1TAB4 PEG; +TAMS0.4C38 PEG; -WHEAPOW PO; -XRL20 PO
[2017-05-03 08:56] LABS: HEMATOCRIT 31.1 % (42-52); MEAN CELL VOLUME 95.4 fL (80-100); MEAN CORPUSCULAR HEMOGLOBIN 30.4 pg (25-34); MEAN CORPUSCULAR HGB CONC 31.8 g/dl (32-36); MEAN PLATELET VOLUME 8.9 fL (7.4-10.4); PLATELET COUNT 280 K/uL (130-400); RED BLOOD COUNT 3.26 M/uL (4.7-6.1); WHITE BLOOD COUNT 4.05 K/uL (4.8-10.8)
[2017-05-03 09:04] LABS: BLOOD UREA NITROGEN 18 mg/dl (7-18); BUN/CREATININE RATIO 28.3 (10-20); CALCIUM 8.9 mg/dl (8.5-10.1); CARBON DIOXIDE 25 mmol/L (21-32); CHLORIDE 106 mmol/L (98-107); CREATININE 0.64 mg/dl (0.60-1.40); GLUCOSE 108 mg/dl (70-99); SODIUM 140 mmol/L (136-145)
== END ==
LOC: C.LABFOXAN 08:27
PROVIDERS: ATTEND Internal Medicine
DX: K22.2 Esophageal obstruction (principal); I48.91 Unspecified atrial fibrillation; I43 Cardiomyopathy in diseases classified elsewhere

== ENCOUNTER → 2017-05-05 | Outpatient (CLI) | payer OTHER ==
[2017-05-05 09:07] LABS: BLOOD UREA NITROGEN 17 mg/dl (7-18); CARBON DIOXIDE 27 mmol/L (21-32); CHLORIDE 107 mmol/L (98-107); CREATININE 0.67 mg/dl (0.60-1.40); GLUCOSE 97 mg/dl (70-99); POTASSIUM 3.9 mmol/L (3.5-5.1); SODIUM 140 mmol/L (136-145)
== END | disposition home or self-care (01) ==
LOC: C.LABFOXAN 08:47
PROVIDERS: ATTEND Internal Medicine
DX: K22.2 Esophageal obstruction (principal); I48.91 Unspecified atrial fibrillation; I43 Cardiomyopathy in diseases classified elsewhere

== ENCOUNTER → 2017-05-05 | Outpatient (CLI) | payer OTHER ==
--- NOTE | 2017-05-05 12:32 | DIAGNOSTIC IMAGING REPORT ---
VIDEO SWALLOW HISTORY: Zenker's DIVERTICULUM, REQUEST TEST TECHNIQUE: Video fluoroscopic evaluation of swallowing was performed in the AP and lateral projections by the speech pathology staff. The patient is fed nectar-thick and thin liquid barium, a barium coated wafer. FLUOROSCOPY TIME: 2.3 minutes. A cine loop submitted. COMPARISON STUDY: Video swallow 03/15/2017. FINDINGS: There is overall poor pharyngeal constriction with diminished hyoid excursion and epiglottic deflection. This results in silent aspiration throughout the examination. There is again suggestion of a small Zenker's diverticulum. This is only partially visualized due to the patient's overlapping shoulders. IMPRESSION: 1. Silent aspiration seen throughout the examination. 2. Question of a small Zenker's diverticulum which is only partially imaged. 3. Please see the speech pathologist report for detailed findings and recommendations. Electronically signed by: Mahamed Romo M.D. 05/05/2017 12:31 PM Dictated Date/Time: 05/05/2017 12:27 PM
--- NOTE | 2017-05-05 14:56 | SWALLOWING EVALUATION ---
HISTORY: This 86 year old man, from [facility], was referred for a repeat video swallow study at [facility] in order to rule out aspiration and identify the safest consistencies for optimal oral intake. The patient participated in a previous video swallow study on 03/15/17, recommending NPO status and PEG tube feedings due to aspiration of all consistencies. This aspiration was mostly due to the presence of a large Zenker's Diverticulum, with retrograde flow of boluses from the diverticulum into the pharynx, resulting in aspiration. A PEG tube was placed and the patient has been NPO. He has since participated in a partial surgical repair of the Zenker's per the family (due to the Zenker's being "twisted" per family report). He presents for a new study to determine if he is able to return to p.o. intake safely since the repair. Currently, the patient is NPO with PEG tube feedings to meet nutrition and hydration needs. PROCEDURE: The patient was seen in the Radiology Department of [facility] for the [facility]. Cursory examination of the oral cavity revealed natural dentition in fair condition, scattered missing. Movement of the articulators was generally weak. Speech was clear. Wet vocal quality and throat clearing was noted prior to administering any barium. The patient was seated in a wheelchair and was viewed in both the Anterior-Posterior (A-P) and Lateral planes. Volitional phonation exercises completed in the A-P plane revealed bilateral vocal fold movement and vocal intensity within functional limits. In the lateral plane, the patient was given the following boluses: 1 tsp. thin liquid barium x 2, 1 tsp. nectar-thick liquid barium, single swallow nectar-thick liquid barium self-presented from a cup x2 (one with a chin tuck), and 1 tsp. barium pudding. The patient was then repositioned into the A-P plane and completed an esophageal scan to assess for presence of the Zenker's without administering barium, due to safety concerns. RESULTS: Oral Stage: Lip closure was adequate. The patient was unable to maintain a cohesive liquid bolus upon command with posterior escape of less than half the bolus. Mastication and lingual motion for bolus transport was slowed. There was retention along the tongue and palate after the initial swallow. The initiation of the pharyngeal swallow was delayed and triggered when the bolus head reached the valleculae. Pharyngeal Stage: Soft palate elevation was complete. Laryngeal elevation revealed partial superior movement of the thyroid cartilage and partial approximation of the arytenoids to the epiglottic base. Anterior hyoid excursion was partially reduced. Epiglottic deflection was incomplete as at times inversion did not progress past the horizontal position. Laryngeal vestibular closure was incomplete, with a narrow (and at time wide) column of contrast located in the vestibule at the height of the swallow. The pharyngeal stripping wave was present yet diminished. Pharyngeal contraction was not assessed due to safety concerns. There was partial distention and duration to the opening of the pharyngoesophageal segment (PES). Tongue base retraction was reduced, with a wide column of contrast located between the tongue base and pharyngeal wall during the swallow. There was retention located along the tongue base, in the valleculae, along the laryngeal aspect of the epiglottis, and in the pyriforms after the swallow. There was evidence of laryngeal penetration and SILENT aspiration of all consistencies administered for this study during the swallow. There was SILENT aspiration noted with attempts to clear pharyngeal retention when he would re-swallow. Retention lining the laryngeal aspect of the epiglottis would trickle into the open airway and also be aspirated silently. Strategies such as a throat clear, cough, and chin tuck were attempted and unsuccessful at clearing any aspiration or retention. Throat clear/cough was weak in nature. The study was concluded after the pudding bolus was administered due to safety concerns. There was one episode of retrograde bolus flow through the PES from a suspected small Zenker's Diverticulum. Esophageal Stage: And esophageal scan was completed in the A-P position without administering barium, again, due to safety concerns. There was a suspected small Zenker's diverticulum, along with retention located in the mid and distal esophagus with retrograde flow through the PES. SUMMARY/RECOMMENDATIONS: The patient presents with severe leanne-pharyngeal dysphagia. He also presents with signs and symptoms of esophageal dysfunction. The following is recommended: 1. Continue with strict NPO status, and continue with PEG tube as primary means of nutrition and hydration. 2. Aspiration and GERD precautions. Do not lay flat, elevate head of the bed to at least 30 degrees at all time, to include while sleeping. 3. Stringent oral care to include brushing all surfaces of the mouth and tongue prior to and after meals, and prior to bed, to reduce oral bacteria that can be aspirated in saliva. 4. Patient would benefit from dysphagia therapy at the [facility] for general pharyngeal strengthening exercises to improve swallowing strength and function. Would recommend a repeat video swallow in 4-6 weeks as appropriate to determine progress and assess for possible return to p.o. intake at that time pending progress in therapy. 5. Consider further GI follow up as indicated for the Zenker's diverticulum. Results and recommendations were discussed with the patient and his daughter immediately following the study with verbal understanding. Thank you for referral of this patient. Please contact me at if any additional information is needed.
== END | disposition home or self-care (01) ==
LOC: C.RAD 10:59
PROVIDERS: ATTEND Internal Medicine
DX: R13.12 Dysphagia, oropharyngeal phase (principal); K22.5 Diverticulum of esophagus, acquired

== ENCOUNTER → 2017-05-08 | Outpatient (CLI) | payer OTHER ==
[2017-05-08 08:20] LABS: BLOOD UREA NITROGEN 16 mg/dl (7-18); BUN/CREATININE RATIO 22.4 (10-20); CALCIUM 8.9 mg/dl (8.5-10.1); CARBON DIOXIDE 24 mmol/L (21-32); CHLORIDE 104 mmol/L (98-107); CREATININE 0.72 mg/dl (0.60-1.40); GLUCOSE 105 mg/dl (70-99); POTASSIUM 4.1 mmol/L (3.5-5.1); SODIUM 139 mmol/L (136-145)
== END ==
LOC: C.LABFOXAN 07:56
PROVIDERS: ATTEND Internal Medicine
DX: K22.2 Esophageal obstruction (principal); I48.91 Unspecified atrial fibrillation; I43 Cardiomyopathy in diseases classified elsewhere

== ENCOUNTER → 2017-05-10 | Outpatient (CLI) | payer OTHER ==
[2017-05-10 08:53] LABS: BLOOD UREA NITROGEN 19 mg/dl (7-18); BUN/CREATININE RATIO 24.6 (10-20); CALCIUM 8.9 mg/dl (8.5-10.1); CARBON DIOXIDE 26 mmol/L (21-32); CHLORIDE 105 mmol/L (98-107); CREATININE 0.76 mg/dl (0.60-1.40); GLUCOSE 98 mg/dl (70-99); POTASSIUM 4.1 mmol/L (3.5-5.1); SODIUM 140 mmol/L (136-145)
[2017-05-10 09:00] LABS: MEAN CORPUSCULAR HEMOGLOBIN 30.3 pg (25-34); MEAN CORPUSCULAR HGB CONC 31.6 g/dl (32-36); MEAN PLATELET VOLUME 9.1 fL (7.4-10.4); PLATELET COUNT 302 K/uL (130-400); RED BLOOD COUNT 3.23 M/uL (4.7-6.1)
== END ==
LOC: C.LABFOXAN 08:08
PROVIDERS: ATTEND Internal Medicine
DX: K22.2 Esophageal obstruction (principal); I48.91 Unspecified atrial fibrillation; I43 Cardiomyopathy in diseases classified elsewhere

== ENCOUNTER → 2017-05-12 | Outpatient (CLI) | payer OTHER ==
[2017-05-12 08:20] LABS: BLOOD UREA NITROGEN 19 mg/dl (7-18); BUN/CREATININE RATIO 25.2 (10-20); CALCIUM 8.9 mg/dl (8.5-10.1); CARBON DIOXIDE 25 mmol/L (21-32); CHLORIDE 103 mmol/L (98-107); CREATININE 0.75 mg/dl (0.60-1.40); GLUCOSE 90 mg/dl (70-99); POTASSIUM 3.9 mmol/L (3.5-5.1); SODIUM 138 mmol/L (136-145)
== END | disposition home or self-care (01) ==
LOC: C.LABFOXAN 07:53
PROVIDERS: ATTEND Internal Medicine
DX: K22.2 Esophageal obstruction (principal); I48.91 Unspecified atrial fibrillation; I43 Cardiomyopathy in diseases classified elsewhere

== ENCOUNTER → 2017-05-15 | Outpatient (CLI) | payer OTHER ==
[2017-05-15 08:19] LABS: BLOOD UREA NITROGEN 21 mg/dl (7-18); BUN/CREATININE RATIO 26.4 (10-20); CALCIUM 8.9 mg/dl (8.5-10.1); CARBON DIOXIDE 25 mmol/L (21-32); CHLORIDE 103 mmol/L (98-107); GLUCOSE 139 mg/dl (70-99); SODIUM 137 mmol/L (136-145)
== END ==
LOC: C.LABFOXAN 07:55
PROVIDERS: ATTEND Internal Medicine
DX: K22.2 Esophageal obstruction (principal); I48.91 Unspecified atrial fibrillation; I43 Cardiomyopathy in diseases classified elsewhere

== ENCOUNTER → 2017-05-17 | Outpatient (CLI) | payer OTHER ==
[2017-05-17 09:27] LABS: HEMATOCRIT 32.1 % (42-52); MEAN CELL VOLUME 95.3 fL (80-100); MEAN CORPUSCULAR HGB CONC 31.5 g/dl (32-36); MEAN PLATELET VOLUME 9.6 fL (7.4-10.4); PLATELET COUNT 231 K/uL (130-400); RED BLOOD COUNT 3.37 M/uL (4.7-6.1); WHITE BLOOD COUNT 4.09 K/uL (4.8-10.8)
[2017-05-17 09:35] LABS: BLOOD UREA NITROGEN 19 mg/dl (7-18); BUN/CREATININE RATIO 26.2 (10-20); CALCIUM 8.6 mg/dl (8.5-10.1); CARBON DIOXIDE 25 mmol/L (21-32); CHLORIDE 106 mmol/L (98-107); CREATININE 0.73 mg/dl (0.60-1.40); GLUCOSE 95 mg/dl (70-99); POTASSIUM 4.1 mmol/L (3.5-5.1); SODIUM 137 mmol/L (136-145)
== END | disposition home or self-care (01) ==
LOC: C.LABFOXAN 08:58
PROVIDERS: ATTEND Internal Medicine
DX: K22.2 Esophageal obstruction (principal); I48.91 Unspecified atrial fibrillation; I43 Cardiomyopathy in diseases classified elsewhere

== ENCOUNTER → 2017-05-22 | Outpatient (CLI) | payer OTHER ==
[2017-05-22 09:18] LABS: BLOOD UREA NITROGEN 24 mg/dl (7-18); BUN/CREATININE RATIO 31.6 (10-20); CALCIUM 8.8 mg/dl (8.5-10.1); CARBON DIOXIDE 25 mmol/L (21-32); CHLORIDE 105 mmol/L (98-107); CREATININE 0.77 mg/dl (0.60-1.40); GLUCOSE 93 mg/dl (70-99); POTASSIUM 4.1 mmol/L (3.5-5.1); SODIUM 138 mmol/L (136-145)
== END ==
LOC: C.LABFOXAN 08:41
PROVIDERS: ATTEND Internal Medicine
DX: K22.2 Esophageal obstruction (principal); I48.91 Unspecified atrial fibrillation; I43 Cardiomyopathy in diseases classified elsewhere

== ENCOUNTER → 2017-05-24 | Outpatient (CLI) | payer SELFPAY ==
[2017-05-24 08:06] LABS: HEMATOCRIT 32.8 % (42-52); MEAN CELL VOLUME 94.5 fL (80-100); MEAN CORPUSCULAR HEMOGLOBIN 30.5 pg (25-34); MEAN CORPUSCULAR HGB CONC 32.3 g/dl (32-36); MEAN PLATELET VOLUME 10.6 fL (7.4-10.4); PLATELET COUNT 169 K/uL (130-400); RED BLOOD COUNT 3.47 M/uL (4.7-6.1); WHITE BLOOD COUNT 3.56 K/uL (4.8-10.8)
[2017-05-24 08:13] LABS: BLOOD UREA NITROGEN 22 mg/dl (7-18); BUN/CREATININE RATIO 30.6 (10-20); CALCIUM 8.8 mg/dl (8.5-10.1); CARBON DIOXIDE 24 mmol/L (21-32); CHLORIDE 105 mmol/L (98-107); CREATININE 0.71 mg/dl (0.60-1.40); GLUCOSE 90 mg/dl (70-99); SODIUM 137 mmol/L (136-145)
== END | disposition home or self-care (01) ==
LOC: C.LABFOXAN 07:52
PROVIDERS: ATTEND Internal Medicine
DX: K22.2 Esophageal obstruction (principal); I48.91 Unspecified atrial fibrillation; I43 Cardiomyopathy in diseases classified elsewhere

== ENCOUNTER → 2017-06-28 | Outpatient (CLI) | payer BC, OTHER ==
[2017-06-28 08:37] LABS: HEMATOCRIT 34.2 % (42-52); HEMOGLOBIN 11.7 g/dL (14.0-18.0); MEAN CELL VOLUME 93.7 fL (80-100); MEAN CORPUSCULAR HEMOGLOBIN 32.1 pg (25-34); MEAN CORPUSCULAR HGB CONC 34.2 g/dl (32-36); MEAN PLATELET VOLUME 10.1 fL (7.4-10.4); PLATELET COUNT 152 K/uL (130-400); RED CELL DISTRIBUTION WIDTH CV 15.2 % (11.5-14.5); WHITE BLOOD COUNT 4.02 K/uL (4.8-10.8)
[2017-06-28 09:34] LABS: BLOOD UREA NITROGEN 17 mg/dl (7-18); CALCIUM 8.5 mg/dl (8.5-10.1); CARBON DIOXIDE 24 mmol/L (21-32); CREATININE 0.86 mg/dl (0.60-1.40); GLUCOSE 89 mg/dl (70-99); POTASSIUM 3.9 mmol/L (3.5-5.1); SODIUM 137 mmol/L (136-145)
== END | disposition home or self-care (01) ==
LOC: C.LABFOXAN 08:14 → EDSTATUS 07-17 12:49
PROVIDERS: ATTEND Internal Medicine
DX: K22.2 Esophageal obstruction (principal); I48.91 Unspecified atrial fibrillation; I43 Cardiomyopathy in diseases classified elsewhere

== ENCOUNTER → 2017-07-12 | Outpatient (CLI) | payer BC, OTHER ==
[2017-07-12 09:50] LABS: HEMATOCRIT 37.4 % (42-52); HEMOGLOBIN 12.6 g/dL (14.0-18.0); MEAN CELL VOLUME 91.9 fL (80-100); MEAN CORPUSCULAR HGB CONC 33.7 g/dl (32-36); MEAN PLATELET VOLUME 10.7 fL (7.4-10.4); PLATELET COUNT 170 K/uL (130-400); RED CELL DISTRIBUTION WIDTH CV 14.3 % (11.5-14.5); WHITE BLOOD COUNT 3.17 K/uL (4.8-10.8)
[2017-07-12 10:12] LABS: BLOOD UREA NITROGEN 14 mg/dl (7-18); CALCIUM 8.6 mg/dl (8.5-10.1); CARBON DIOXIDE 24 mmol/L (21-32); CREATININE 0.99 mg/dl (0.60-1.40); GLUCOSE 81 mg/dl (70-99); POTASSIUM 3.8 mmol/L (3.5-5.1); SODIUM 136 mmol/L (136-145)
== END | disposition home or self-care (01) ==
LOC: C.LABFOXAN 07:57 → EDSTATUS 07-17 12:52
PROVIDERS: ATTEND Internal Medicine
DX: K22.2 Esophageal obstruction (principal); I48.91 Unspecified atrial fibrillation; I43 Cardiomyopathy in diseases classified elsewhere

== ENCOUNTER → 2017-07-19 | Outpatient (CLI) | payer OTHER ==
[2017-07-19 08:46] LABS: HEMATOCRIT 36.5 % (42-52); HEMOGLOBIN 12.5 g/dL (14.0-18.0); MEAN CELL VOLUME 91.3 fL (80-100); MEAN CORPUSCULAR HEMOGLOBIN 31.3 pg (25-34); MEAN CORPUSCULAR HGB CONC 34.2 g/dl (32-36); MEAN PLATELET VOLUME 10.6 fL (7.4-10.4); PLATELET COUNT 141 K/uL (130-400); RED CELL DISTRIBUTION WIDTH CV 14.2 % (11.5-14.5); RED CELL DISTRIBUTION WIDTH SD 47.2 fL (36.4-46.3); WHITE BLOOD COUNT 3.22 K/uL (4.8-10.8)
[2017-07-19 08:59] LABS: BLOOD UREA NITROGEN 18 mg/dl (7-18); CALCIUM 9.1 mg/dl (8.5-10.1); CARBON DIOXIDE 22 mmol/L (21-32); CREATININE 0.84 mg/dl (0.60-1.40); GLUCOSE 92 mg/dl (70-99); POTASSIUM 3.9 mmol/L (3.5-5.1); SODIUM 138 mmol/L (136-145)
== END | disposition home or self-care (01) ==
LOC: C.LABFOXAN 07:53
PROVIDERS: ATTEND Internal Medicine
DX: K22.2 Esophageal obstruction (principal); I48.91 Unspecified atrial fibrillation; I43 Cardiomyopathy in diseases classified elsewhere

== ENCOUNTER → 2017-07-24 | Outpatient (CLI) | payer OTHER ==
[2017-07-24 08:46] LABS: ALBUMIN 3.3 gm/dl (3.4-5.0); TOTAL PROTEIN 6.5 gm/dl (6.4-8.2)
== END ==
LOC: C.LABFOXAN 08:03
PROVIDERS: ATTEND Nurse Practitioner Family
DX: R74.8 Abnormal levels of other serum enzymes (principal)

== ENCOUNTER → 2017-07-26 | Outpatient (CLI) | payer OTHER ==
[2017-07-26 08:46] LABS: HEMATOCRIT 39.6 % (42-52); HEMOGLOBIN 13.5 g/dL (14.0-18.0); MEAN CELL VOLUME 91.7 fL (80-100); MEAN CORPUSCULAR HEMOGLOBIN 31.3 pg (25-34); MEAN CORPUSCULAR HGB CONC 34.1 g/dl (32-36); MEAN PLATELET VOLUME 10.6 fL (7.4-10.4); PLATELET COUNT 155 K/uL (130-400); RED CELL DISTRIBUTION WIDTH CV 14.1 % (11.5-14.5); RED CELL DISTRIBUTION WIDTH SD 46.9 fL (36.4-46.3); WHITE BLOOD COUNT 3.65 K/uL (4.8-10.8)
[2017-07-26 08:59] LABS: BLOOD UREA NITROGEN 18 mg/dl (7-18); CALCIUM 9.2 mg/dl (8.5-10.1); CARBON DIOXIDE 22 mmol/L (21-32); CREATININE 1.09 mg/dl (0.60-1.40); GLUCOSE 91 mg/dl (70-99); POTASSIUM 4.1 mmol/L (3.5-5.1); SODIUM 138 mmol/L (136-145)
== END ==
LOC: C.LABFOXAN 08:21
PROVIDERS: ATTEND Internal Medicine
DX: K22.2 Esophageal obstruction (principal); I48.91 Unspecified atrial fibrillation; I43 Cardiomyopathy in diseases classified elsewhere

== ENCOUNTER → 2017-08-09 | Outpatient (CLI) | payer OTHER ==
[2017-08-09 08:21] LABS: ALBUMIN 3.1 gm/dl (3.4-5.0); ALT/SGPT 21 U/L (12-78); AST/SGOT 31 U/L (15-37); BLOOD UREA NITROGEN 12 mg/dl (7-18); CALCIUM 8.7 mg/dl (8.5-10.1); CARBON DIOXIDE 24 mmol/L (21-32); GLUCOSE 77 mg/dl (70-99); POTASSIUM 3.7 mmol/L (3.5-5.1); SODIUM 139 mmol/L (136-145)
[2017-08-09 08:23] LABS: ALKALINE PHOSPHATASE 104 U/L (45-117); TOTAL PROTEIN 5.9 gm/dl (6.4-8.2)
== END ==
LOC: C.LABFOXMH 07:49
PROVIDERS: ATTEND Internal Medicine
DX: K22.2 Esophageal obstruction (principal); I48.91 Unspecified atrial fibrillation; I43 Cardiomyopathy in diseases classified elsewhere

== ENCOUNTER → 2017-08-23 | Outpatient (CLI) | payer OTHER ==
[2017-08-23 08:30] LABS: BLOOD UREA NITROGEN 14 mg/dl (7-18); CALCIUM 8.6 mg/dl (8.5-10.1); CARBON DIOXIDE 27 mmol/L (21-32); CREATININE 0.88 mg/dl (0.60-1.40); GLUCOSE 73 mg/dl (70-99); POTASSIUM 3.9 mmol/L (3.5-5.1); SODIUM 136 mmol/L (136-145)
[2017-08-23 08:33] LABS: ALKALINE PHOSPHATASE 124 U/L (45-117); ALT/SGPT 23 U/L (12-78); AST/SGOT 32 U/L (15-37)
== END | disposition home or self-care (01) ==
LOC: C.LABFOXDH 07:52
PROVIDERS: ATTEND Internal Medicine
DX: K22.2 Esophageal obstruction (principal); I48.91 Unspecified atrial fibrillation; I43 Cardiomyopathy in diseases classified elsewhere

== ENCOUNTER → 2017-09-06 | Outpatient (CLI) | payer OTHER ==
[2017-09-06 10:17] LABS: ALBUMIN 3.1 gm/dl (3.4-5.0); ALT/SGPT 22 U/L (12-78); BLOOD UREA NITROGEN 12 mg/dl (7-18); CALCIUM 8.6 mg/dl (8.5-10.1); CARBON DIOXIDE 25 mmol/L (21-32); CREATININE 0.86 mg/dl (0.60-1.40); GLUCOSE 74 mg/dl (70-99); POTASSIUM 3.9 mmol/L (3.5-5.1); SODIUM 134 mmol/L (136-145)
[2017-09-06 10:20] LABS: ALKALINE PHOSPHATASE 121 U/L (45-117); AST/SGOT 29 U/L (15-37); TOTAL PROTEIN 5.9 gm/dl (6.4-8.2)
== END | disposition home or self-care (01) ==
LOC: C.LABFOXDH 08:34
PROVIDERS: ATTEND Internal Medicine
DX: K22.2 Esophageal obstruction (principal); I48.91 Unspecified atrial fibrillation; I43 Cardiomyopathy in diseases classified elsewhere

== ENCOUNTER → 2017-09-26 | Outpatient (CLI) | payer OTHER, BC ==
[~2017-09-26] MED LIST changes: +ACET650S10 RE; +ACTL1605 PO; +BISA10SU3 PR; +LEVE500T13 PEG; +POLY335019 PO; +SODIENE PR
[2017-09-26 09:17] LABS: ALBUMIN 3.3 gm/dl (3.4-5.0); ALKALINE PHOSPHATASE 113 U/L (45-117); ALT/SGPT 17 U/L (12-78); BLOOD UREA NITROGEN 13 mg/dl (7-18); CALCIUM 8.7 mg/dl (8.5-10.1); CARBON DIOXIDE 25 mmol/L (21-32); CREATININE 0.82 mg/dl (0.60-1.40); GLUCOSE 81 mg/dl (70-99); POTASSIUM 3.9 mmol/L (3.5-5.1); SODIUM 132 mmol/L (136-145)
[2017-09-26 09:19] LABS: AST/SGOT 26 U/L (15-37); TOTAL PROTEIN 5.9 gm/dl (6.4-8.2)
== END | disposition home or self-care (01) ==
LOC: C.LABFOXDH 08:34
PROVIDERS: ATTEND Internal Medicine
DX: K22.2 Esophageal obstruction (principal); I48.91 Unspecified atrial fibrillation; I43 Cardiomyopathy in diseases classified elsewhere

== ENCOUNTER → 2017-10-04 | Outpatient (CLI) | payer OTHER, BC ==
[~2017-10-04] MED LIST changes: -FLUT0.15; -LEVE100S10 PEG
[2017-10-04 08:19] LABS: ALBUMIN 3.2 gm/dl (3.4-5.0); ALT/SGPT 15 U/L (12-78); BLOOD UREA NITROGEN 9 mg/dl (7-18); CALCIUM 8.6 mg/dl (8.5-10.1); CARBON DIOXIDE 23 mmol/L (21-32); CREATININE 0.74 mg/dl (0.60-1.40); GLUCOSE 82 mg/dl (70-99); POTASSIUM 3.8 mmol/L (3.5-5.1); SODIUM 132 mmol/L (136-145)
[2017-10-04 08:20] LABS: ALKALINE PHOSPHATASE 111 U/L (45-117); AST/SGOT 24 U/L (15-37); TOTAL PROTEIN 5.8 gm/dl (6.4-8.2)
== END | disposition home or self-care (01) ==
LOC: C.LABFOXDH 07:46
PROVIDERS: ATTEND Internal Medicine
DX: K22.2 Esophageal obstruction (principal); I48.91 Unspecified atrial fibrillation; I43 Cardiomyopathy in diseases classified elsewhere

== ENCOUNTER → 2017-10-09 | Day surgery (SDC) | payer OTHER, BC ==
[2017-09-27 10:19] VITALS: Ht 177.8 cm; Wt 78.0 kg
--- NOTE | 2017-09-27 12:14 | PAT Medication Instructions ---
Service Date Sep 27, 2017. Current Home Medication List Acetaminophen (Tylenol), 650 MG RE Q4H PRN for Pain or Fever Acetaminophen (Mapap), 650 MG PO Q4H PRN for Pain or Fever Atorvastatin (Lipitor), 40 MG PEG QPM Bisacodyl (Dulcolax), 1 SUPP VT UD PRN for Constipation Cetirizine (Zyrtec), 10 MG PEG QAM Docusate Sodium (Docusate Sodium), 100 MG PEG QAM Ferrous Sulfate (Kp Ferrous Sulfate), 325 MG PEG BID Finasteride (Proscar), 5 MG PEG QPM Hydrocortisone 2.5% (Rectal) (Anusol-Hc 2.5%), 1 APPLN TOP BID Ipratropium-Albuterol (Duoneb), 1 TREATMENT INH Q4H PRN for Wheezing Levetiracetam (Keppra), 500 MG PEG BID Magnesium Gluconate (Mag-G), 500 MG PEG QAM Magnesium Hydroxide (Milk of Magnesia), 30 ML PEG DIRECTED PRN for Constipation Nutritional Supplements (Nutren 2.0), 250 ML PEG QID Pantoprazole (Protonix), 40 MG PEG QAM Polyethylene Glycol 3350 (Miralax), 17 GM PO BID PRN for Constipation Potassium Chloride (Potassium Chloride), 20 ML PEG QAM Rivaroxaban (Xarelto), 20 MG PEG HS Sodium Phosphate/Biphosphate (Fleet Enema), 1 EA VT Q72H PRN for Constipation Tamsulosin Hcl (Flomax), 0.4 MG PEG HS Medication Instructions For Your Scheduled Surgery - Check with surgeon and prescribing physician for instructions: Rivaroxaban (Xarelto), 20 MG PEG HS - Hold the following medications 24 hours prior to surgery: Hydrocortisone 2.5% (Rectal) (Anusol-Hc 2.5%), 1 APPLN TOP BID - Hold the following medications the morning of surgery: Bisacodyl (Dulcolax), 1 SUPP VT UD PRN for Constipation Cetirizine (Zyrtec), 10 MG PEG QAM Docusate Sodium (Docusate Sodium), 100 MG PEG QAM Ferrous Sulfate (Kp Ferrous Sulfate), 325 MG PEG BID Magnesium Gluconate (Mag-G), 500 MG PEG QAM Magnesium Hydroxide (Milk of Magnesia), 30 ML PEG DIRECTED PRN for Constipation Nutritional Supplements (Nutren 2.0), 250 ML PEG QID Polyethylene Glycol 3350 (Miralax), 17 GM PO BID PRN for Constipation Potassium Chloride (Potassium Chloride), 20 ML PEG QAM Sodium Phosphate/Biphosphate (Fleet Enema), 1 EA VT Q72H PRN for Constipation - Take the following medications the morning of surgery with a sip of water: Pantoprazole (Protonix), 40 MG PEG QAM Ipratropium-Albuterol (Duoneb), 1 TREATMENT INH Q4H PRN for Wheezing (if needed) Levetiracetam (Keppra), 500 MG PEG BID Acetaminophen (Tylenol), 650 MG RE Q4H PRN for Pain or Fever (okay to take up to 4 hours prior to surgery if needed) Acetaminophen (Mapap), 650 MG PO Q4H PRN for Pain or Fever(okay to take up to 4 hours prior to surgery if needed) - Take the following medications as scheduled the night before surgery: Tamsulosin Hcl (Flomax), 0.4 MG PEG HS Sodium Phosphate/Biphosphate (Fleet Enema), 1 EA VT Q72H PRN for Constipation ( if needed) Polyethylene Glycol 3350 (Miralax), 17 GM PO BID PRN for Constipation (if needed ) Magnesium Hydroxide (Milk of Magnesia), 30 ML PEG DIRECTED PRN for Constipation (if needed) Nutritional Supplements (Nutren 2.0), 250 ML PEG QID Ipratropium-Albuterol (Duoneb), 1 TREATMENT INH Q4H PRN for Wheezing (if needed) Levetiracetam (Keppra), 500 MG PEG BID Finasteride (Proscar), 5 MG PEG QPM Ferrous Sulfate (Kp Ferrous Sulfate), 325 MG PEG BID Bisacodyl (Dulcolax), 1 SUPP VT UD PRN for Constipation (if needed) Atorvastatin (Lipitor), 40 MG PEG QPM Acetaminophen (Tylenol), 650 MG RE Q4H PRN for Pain or Fever (if needed) Acetaminophen (Mapap), 650 MG PO Q4H PRN for Pain or Fever (if needed) If you have any questions please call us at [phone] or [phone] or [phone]
[~2017-10-09] VITALS: Ht 177.8 cm; Wt 78.0 kg
[~2017-10-09] MED LIST changes: +ACET650S10 PO; -ACET650S10 RE; +ARTISOL12 OPB; -ATOR-24 PEG; +ATOR-24 PO; +ATROPINE SULFATE 0.1 MG/ML 5ML SYR IV PRN; -CETI10TA84 PEG; +CETI10TA84 PO; +DOCU100C31 PO; +EpHEDrine SULFATE INJ 50 MG/ML AMP IV PRN; -FERR1TAB13 PEG; +FERR1TAB13 PO; -FINA5TAB PEG; +FINA5TAB PO; -KCLI20/100 PEG; +KCLI20/100 PO; -LEVE500T13 PEG; +LEVE500T13 PO; +LIDOCAINE HCL 2% 2 ML VIAL (20MG/ML) ONE; -MGNG500 PEG; +MGNG500 PO; -MOMLX PEG; +MOMLX PO; -PANT40TA PEG; +PANT40TA PO; +PROPOFOL IV EMULSION 10 MG/ML 20 ML VIAL IV ONE; -RIVA1TAB4 PEG; +RIVA1TAB4 PO; +SOFT1SOL45 OPB; -TAMS0.4C38 PEG; +TAMS0.4C38 PO
--- NOTE | 2017-10-09 15:12 | Endo History and Physical ---
History & Physical Date of Service: Oct 09, 2017. Chief Complaint: Dysphagia Referring Physician: Dr. Cecile Murcia History of Present Illness 87 yo CM who presents for EGD secondary to dysphagia. Past Medical History Atrial Fibrillation, Pacemaker, Reflux, Cancer, High Cholesterol, Hypertension, CVA/TIA Past Surgical History Hx Cardiac Surgery: Yes (PACEMAKER IMPLANTED) Hx Internal Defibrillator: No Hx Pacemaker: Yes (PACEMAKER IMPLANTED) Hx Abdominal Surgery: Yes (INGUINAL HERNIA) Hx of Implantable Prosthesis: No Hx Post-Op Nausea and Vomiting: No Hx Cancer Surgery: No Hx Thoracic Surgery: No Hx Orthopedic: No Hx Urinary Tract Surgery: No Family History None Social History Smoking Status: Former Smoker Hx Substance Use: No Hx Alcohol Use: Yes (OCCASIONALLY) Allergies Coded Allergies: No Known Allergies (Verified , 09/27/17) Current Medications Reported Home Medications Medications Dose Route/Sig Max Daily Dose Days Date Category Miralax (Polyethylene Glycol 3350) 1 17 Gm PO BID PRN 09/27/17 Reported Dulcolax (Bisacodyl) 10 Mg Sup 1 Supp VA UD PRN 09/27/17 Reported Fleet Enema (Sodium Phosphate/Biphosphate) Courtney 1 Ea VA Q72H PRN 09/27/17 Reported Mapap (Acetaminophen) 160 Mg/5 Ml Soln 650 Mg PO Q4H PRN 09/27/17 Reported Tylenol (Acetaminophen) 650 Mg Supp 650 Mg RE Q4H PRN 09/27/17 Reported Keppra (Levetiracetam) 500 Mg Tab 500 Mg PEG BID 09/27/17 Reported Xarelto (Rivaroxaban) 20 Mg Tab 20 Mg PEG HS 04/14/17 Reported Flomax (Tamsulosin Hcl) 0.4 Mg Cap 0.4 Mg PEG HS 04/14/17 Reported Potassium Chloride 20 Meq Soln 20 Ml PEG QAM 04/14/17 Reported Nutren 2.0 (Nutritional Supplements) 1 Liq Liq 250 Ml PEG QID 04/14/17 Reported Milk of Magnesia (Magnesium Hydroxide) 30 Ml Susp 30 Ml PEG DIRECTED PRN 04/14/17 Reported Mag-G (Magnesium Gluconate) 500 Mg Tab 500 Mg PEG QAM 04/14/17 Reported Duoneb (Ipratropium-Albuterol) 3 Ml Nebu 1 Treatment INH Q4H PRN MDD E 04/14/17 Reported Docusate Sodium 50 Mg/5 Ml Liq 100 Mg PEG QAM 04/14/17 Reported Anusol-Hc 2.5% (Hydrocortisone 2.5% (Rectal)) 2.5 % Cre 1 Appln TOP BID 7 01/18/17 Rx Zyrtec (Cetirizine HCl) 10 Mg Tab 10 Mg PEG QAM 01/18/17 Reported Lipitor (Atorvastatin Calcium) 40 Mg Tab 40 Mg PEG QPM 10/12/16 Reported Proscar (Finasteride) 5 Mg Tab 5 Mg PEG QPM 10/12/16 Reported Kp Ferrous Sulfate (Ferrous Sulfate) 325 Mg Tab 325 Mg PEG BID 10/12/16 Reported Protonix (Pantoprazole) 40 Mg Tab 40 Mg PEG QAM 10/12/16 Reported Vital Signs Weight (Kilograms): 78 Height (Feet): 0 Height (Inches): 70 Date Time Temp Pulse Resp B/P (MAP) Pulse Ox O2 Delivery O2 Flow Rate FiO2 10/09/17 15:09 36.4 68 16 111/77 (88) 98 Room Air Physical Exam General Appearance: WD/WN, no apparent distress Respiratory/Chest: Auscultation: breath sounds normal Cardiovascular: Heart Auscultation: RRR Abdomen: Bowel Sounds: normal Inspection & Palpation: soft, non-distended, no tenderness, guarding & rebound Assessment and Plan Assessment: 87 yo CM who presents for EGD secondary to dysphagia. Plan: Proceed with colonoscopy.
--- NOTE | 2017-10-09 15:59 | GI REPORT ---
Procedure Date: 10/09/2017 3:24 PM Procedure: Upper GI endoscopy Indications: Dysphagia Medicines: Monitored Anesthesia Care Complications: No immediate complications. Estimated Blood Loss: Estimated blood loss: none. Procedure: Pre-Anesthesia Assessment: - Prior to the procedure, a History and Physical was performed, and patient medications and allergies were reviewed. The patient's tolerance of previous anesthesia was also reviewed. The risks and benefits of the procedure and the sedation options and risks were discussed with the patient. All questions were answered, and informed consent was obtained. Prior Anticoagulants: The patient has taken Xarelto (rivaroxaban), last dose was 2 days prior to procedure. ASA Grade Assessment: IV - A patient with severe systemic disease that is a constant threat to life. After reviewing the risks and benefits, the patient was deemed in satisfactory condition to undergo the procedure. After obtaining informed consent, the endoscope was passed under direct vision. Throughout the procedure, the patient's blood pressure, pulse, and oxygen saturations were monitored continuously. The scope was introduced through the mouth, and advanced to the second part of duodenum. The upper GI endoscopy was accomplished without difficulty. The patient tolerated the procedure well. Findings: A mild Schatzki ring (acquired) was found at the gastroesophageal junction. A TTS dilator was passed through the scope. Dilation with a 15-16.5-18 mm balloon and an 18-19-20 mm balloon dilator was performed to 20 mm. The dilation site was examined and showed no change. A small hiatal hernia was present. The examined duodenum was normal. Impression: - Mild Schatzki ring. Dilated. - Small hiatal hernia. - Normal examined duodenum. - No specimens collected. Recommendation: - Resume previous diet. - Continue present medications. - Return to primary care physician as previously scheduled. Frank Jefferson DO 10/09/2017 3:59:16 PM This report has been signed electronically. Note Initiated On: 10/09/2017 3:24 PM I attest to the content of the Intraoperative Record and orders documented therein, exceptions below
--- NOTE | 2017-10-09 16:07 | Anesthesiology Progress Note ---
Anesthesia Post Op Note Date & Time Oct 09, 2017 at 16:06 Vital Signs Pain Intensity: 0 Vital Signs Past 12 Hours Date Time Temp Pulse Resp B/P (MAP) Pulse Ox O2 Delivery O2 Flow Rate FiO2 10/09/17 15:09 36.4 68 16 111/77 (88) 98 Room Air Notes Mental Status: alert / awake / arousable, participated in evaluation Pt Amnestic to Procedure: Yes Nausea / Vomiting: adequately controlled Pain: adequately controlled Airway Patency, RR, SpO2: stable & adequate BP & HR: stable & adequate Hydration State: stable & adequate Anesthetic Complications: no major complications apparent
[2017-10-09 16:29] VITALS: BP 119/72; PULSE 60; O2SAT 97
--- NOTE | 2017-10-09 16:35 | Discharge Instructions ---
Endoscopy Patient Instructions Date / Procedure(s) Performed Oct 09, 2017. EGD Allergy Information Coded Allergies: No Known Allergies (Verified , 09/27/17) Discharge Date / Findings Oct 09, 2017. Schatzki's ring s/p dilation Hiatal hernia Medication Instructions OK to resume all medications today as prescribed Reported Home Medications Medications Dose Route/Sig Max Daily Dose Days Date Category Miralax (Polyethylene Glycol 3350) 1 Pow Pow 17 Gm PO BID PRN 09/27/17 Reported Dulcolax (Bisacodyl) 10 Mg Sup 1 Supp VT UD PRN 09/27/17 Reported Fleet Enema (Sodium Phosphate/Biphosphate) Courtney 1 Ea VT Q72H PRN 09/27/17 Reported Mapap (Acetaminophen) 160 Mg/5 Ml Soln 650 Mg PO Q4H PRN 09/27/17 Reported Tylenol (Acetaminophen) 650 Mg Supp 650 Mg RE Q4H PRN 09/27/17 Reported Keppra (Levetiracetam) 500 Mg Tab 500 Mg PEG BID 09/27/17 Reported Xarelto (Rivaroxaban) 20 Mg Tab 20 Mg PEG HS 04/14/17 Reported Flomax (Tamsulosin Hcl) 0.4 Mg Cap 0.4 Mg PEG HS 04/14/17 Reported Potassium Chloride 20 Meq Soln 20 Ml PEG QAM 04/14/17 Reported Nutren 2.0 (Nutritional Supplements) 1 Liq Liq 250 Ml PEG QID 04/14/17 Reported Milk of Magnesia (Magnesium Hydroxide) 30 Ml Susp 30 Ml PEG DIRECTED PRN 04/14/17 Reported Mag-G (Magnesium Gluconate) 500 Mg Tab 500 Mg PEG QAM 04/14/17 Reported Duoneb (Ipratropium-Albuterol) 3 Ml Nebu 1 Treatment INH Q4H PRN MDD E 04/14/17 Reported Docusate Sodium 50 Mg/5 Ml Liq 100 Mg PEG QAM 04/14/17 Reported Anusol-Hc 2.5% (Hydrocortisone 2.5% (Rectal)) 2.5 % Cre 1 Appln TOP BID 7 01/18/17 Rx Zyrtec (Cetirizine HCl) 10 Mg Tab 10 Mg PEG QAM 01/18/17 Reported Lipitor (Atorvastatin Calcium) 40 Mg Tab 40 Mg PEG QPM 10/12/16 Reported Proscar (Finasteride) 5 Mg Tab 5 Mg PEG QPM 10/12/16 Reported Kp Ferrous Sulfate (Ferrous Sulfate) 325 Mg Tab 325 Mg PEG BID 10/12/16 Reported Protonix (Pantoprazole) 40 Mg Tab 40 Mg PEG QAM 10/12/16 Reported Provider Instructions Activity Restrictions - No exercising or heavy lifting for 24 hours. - Do not drink alcohol the day of the procedure. - Do not drive a car or operate machinery until the day after the procedure. - Do not make any important decisions or sign important papers in 24 hours after the procedure. Following Day: - Return to full activity which may include returning to work/school. Diet Start your diet with liquids and light foods (jello, soup, juice, toast). Then eat your usual diet if not nauseated. Treatment For Common After Affects For mild abdominal pain, bloating, or excessive gas: - Rest - Eat lightly - Lie on right side Follow-Up Information Follow-up with Dr. Cecile Murcia as scheduled Anesthesia Information What You Should Know You have had a procedure that required some medicine to reduce anxiety and discomfort. This treatment is called moderate sedation. After receiving the treatment, you may be sleepy, but you will be able to breathe on your own. The effects of the treatment may last for several hours. Follow these instructions along with Activity/Diet recommendations noted above: * Do NOT do anything where dizziness or clumsiness would be dangerous. * Rest quietly at home today, then you can be up and about tomorrow. * Have a responsible person stay with you the rest of today. * You may have had an I.V. today. If so, you may take the dressing off later today. Recommendations Call your doctor if: * Trouble breathing * Continuous vomiting for more than 24 hours * Temperature above 101 degrees * Severe abdominal pain or bloating * Pain not relieved by pain medicine ordered * There is increased drainage or redness from any incision * A large amount of rectal bleeding greater than 2-3 tablespoons. (If you had a polyp/s removed or have hemorrhoids, a small amount of blood - from the rectum is to be expected.) * You have any unanswered questions or concerns. IN THE EVENT OF A SERIOUS EMERGENCY, GO TO THE NEAREST EMERGENCY ROOM Your discharge instructions were prepared by provider Frank Jefferson. Patient Instructions Signature Page Rosales Butts Patient (or Guardian) Signature/Date: I have read and understand the instructions given to me by my caregivers. Caregiver/RN/Doctor Signature/Date: The above-named patient and/or guardian has received patient instructions on this date. + Original Patient Signature Page (only) stays with chart. Please make copy for patient.
== END | disposition home or self-care (01) ==
LOC: C.GI 14:40
PROVIDERS: ATTEND Internal Medicine
DX: K22.2 Esophageal obstruction (principal); K44.9 Diaphragmatic hernia without obstruction or gangrene; I48.91 Unspecified atrial fibrillation; E11.9 Type 2 diabetes mellitus without complications; E78.5 Hyperlipidemia, unspecified; J44.9 Chronic obstructive pulmonary disease, unspecified; I10 Essential (primary) hypertension; Z86.73 Personal history of transient ischemic attack (TIA), and cerebral infarction without residual deficits; Z95.0 Presence of cardiac pacemaker; Z98.890 Other specified postprocedural states; Z87.891 Personal history of nicotine dependence; Z79.01 Long term (current) use of anticoagulants; Z79.899 Other long term (current) drug therapy

== ENCOUNTER 2017-10-15 14:32 | Inpatient (IN) | payer OTHER ==
[~2017-10-15] VITALS: Ht 182.9 cm; Wt 80.5 kg
[~2017-10-15 14:32] MED LIST changes: -ARTISOL12 OPB; -ATROPINE SULFATE 0.1 MG/ML 5ML SYR IV PRN; -DOCU100C31 PO; -EpHEDrine SULFATE INJ 50 MG/ML AMP IV PRN; -LIDOCAINE HCL 2% 2 ML VIAL (20MG/ML) ONE; -PROPOFOL IV EMULSION 10 MG/ML 20 ML VIAL IV ONE; -SOFT1SOL45 OPB
[2017-10-15] MEDS ORDERED: SODIUM CHLORIDE 0.9% 1000ML 250 ML IV STA (14:53)
[2017-10-15] MEDS ORDERED: SODIUM CHLORIDE 0.9% 1000ML 1,000 ML IV STA (14:53)
--- NOTE | 2017-10-15 14:58 | EMERGENCY ROOM VISIT NOTE ---
History Report prepared by Ruby: Mariano Marshall Under the Supervision of: Dr. Ulises Diaz M.D. First contact with patient: 14:46 Chief Complaint: CONFUSION Stated Complaint: CONFUSION History of Present Illness The patient is a 87 year old male who presents to the Emergency Room with complaints of constant double vision beginning several days ago. According to the nurse in the room, the patient's blood sugars are 230. She also notes that the patient is from [facility] assisted living facility and has been confused for the past several days. The patient reports feeling lightheaded/dizzy. He denies any headaches, fever, nausea, vomiting, burning with urination or blood in urine. He notes 1 episode of redness in his stool. The patient reports a history of seizures. He notes that his most recent seizure occured 1 week ago. He denies hitting his head during the episode. Source of History: patient Onset: several days ago Position: eye (bilateral) Quality: other (double vision ) Timing: constant Modifying Factors (Worsening): other (none ) Modifying Factors (Relieving): other (none) Associated Symptoms: No fevers, No headache, No nausea, No vomiting, No urinary symptoms Note: Associated Symptoms: Lightheadedness/dizziness, redness in stool. Review of Systems See HPI for pertinent positives & negatives. A total of 10 systems reviewed and were otherwise negative. Past Medical & Surgical Medical Problems: (1) Acute bronchitis (2) Anemia (3) Arm paresthesia, right (4) Arm paresthesia, right (5) GERD (gastroesophageal reflux disease) (6) HTN (hypertension) (7) Hyperlipidemia (8) Seizure, AMS (9) URI (upper respiratory infection) Surgical Problems: (1) H/O hernia repair Old medical records were reviewed. Nurse's notes were reviewed and I agree with. Family History GI malignancy Social History Smoking Status: Former Smoker Alcohol Use: none Drug Use: none Marital Status: Housing Status: assisted living Occupation Status: retired Current/Historical Medications Scheduled Atorvastatin (Lipitor), 40 MG PO QPM Cetirizine (Zyrtec), 10 MG PO QAM Docusate Sodium (Docusate Sodium), 100 MG PO QAM Ferrous Sulfate (Kp Ferrous Sulfate), 325 MG PO BID Finasteride (Proscar), 5 MG PO QPM Hydrocortisone 2.5% (Rectal) (Anusol-Hc 2.5%), 1 APPLN TOP BID Levetiracetam (Keppra), 500 MG PO BID Magnesium Gluconate (Mag-G), 500 MG PO QAM Pantoprazole (Protonix), 40 MG PO QAM Potassium Chloride (Potassium Chloride), 20 ML PO QAM Rivaroxaban (Xarelto), 20 MG PO HS Tamsulosin Hcl (Flomax), 0.4 MG PO HS Scheduled PRN Acetaminophen (Tylenol), 650 MG PO Q4H PRN for Pain or Fever Acetaminophen (Mapap), 650 MG PO Q4H PRN for Pain or Fever Artificial Tear Solution (Artificial Tears), 3 DROPS OPB Q2H PRN for DRY EYES Bisacodyl (Dulcolax), 1 SUPP VA Q48HRS PRN for Constipation Ipratropium-Albuterol (Duoneb), 1 TREATMENT INH QID PRN for Wheezing Magnesium Hydroxide (Milk of Magnesia), 30 ML PO Q48H PRN for Constipation Polyethylene Glycol 3350 (Miralax), 17 GM PO BID PRN for Constipation Sodium Phosphate/Biphosphate (Fleet Enema), 1 EA VA Q72H PRN for Constipation Soft Lens Products (Saline Solution), 3 DROPS OPB Q2H PRN for EYE IRRITATION Allergies Coded Allergies: No Known Allergies (Verified , 09/27/17) Physical Exam Vital Signs Date Time Temp Pulse Resp B/P (MAP) Pulse Ox O2 Delivery O2 Flow Rate FiO2 10/15/17 17:44 64 18 123/77 100 Room Air 10/15/17 16:36 67 10/15/17 16:03 68 26 98/66 98 Room Air 10/15/17 14:52 37.2 82 16 113/72 95 Room Air 10/15/17 14:40 65 Physical Exam General: Non-ill appearing older male in no acute distress. Awake and alert. Hard of hearing. Answers most question appropriately. The patient is alert to person and place but thinks he is in [place]. HEENT: Normal cephalic atraumatic. Pupils are equal round and reactive to light. Extraocular movements are intact. Oropharynx is pink with moist mucous membranes. No swelling of the mouth lips or tongue. Neck: Supple with a midline trachea. No meningeal signs or stiffness, no JVD or bruits. No Stridor. Chest: Clear to auscultation bilaterally. No wheezes or rhonchi. No increased work of breathing. Heart: regular rate and rhythm. Abdomen: Soft nontender, nondistended without rebound guarding or rigidity. Extremities: No cyanosis clubbing or edema. No calf tenderness or assymetry Spine/Back. Non tender to palpation. No CVA tenderness Skin: Good turgor without rashes. Neurologic exam: Cranial nerves two through 12 are intact. Motor and sensation are intact and symmetrical throughout. Medical Decision & Procedures ER Provider Diagnostic Interpretation: Radiology results as stated below per my review and radiologist interpretation: HEAD WITHOUT CONTRAST (CT) CT DOSE: 614.27 mGy.cm HISTORY: Mental status change eval for confusion, visual change TECHNIQUE: Multiaxial CT images of the head were performed without the use of intravenous contrast. A dose lowering technique was utilized adhering to the principles of ALARA. Comparison: 03/16/2017 Findings: The paranasal sinuses and mastoid air cells are clear. The calvarium and skull base are intact. The ventricles and sulci are within normal limits. There is no mass, hematoma, midline shift, or acute infarct. Mild age-related chronic small vessel change Impression: No acute intracranial abnormality. Age-related chronic small vessel change. The above report was generated using voice recognition software. It may contain grammatical, syntax or spelling errors. Electronically signed by: Bereket Cho M.D. 10/15/2017 4:26 PM Dictated Date/Time: 10/15/2017 4:25 PM Laboratory Results 10/15/17 15:30 Red Blood Count 4.25, Mean Corpuscular Volume 89.6, Mean Corpuscular Hemoglobin 30.8, Mean Corpuscular Hemoglobin Concent 34.4, Mean Platelet Volume 9.3, Neutrophils (%) (Auto) 79.3, Lymphocytes (%) (Auto) 8.8, Monocytes (%) (Auto) 9.9, Eosinophils (%) (Auto) 1.7, Basophils (%) (Auto) 0.3, Neutrophils # (Auto) 2.80, Lymphocytes # (Auto) 0.31, Monocytes # (Auto) 0.35, Eosinophils # (Auto) 0.06, Basophils # (Auto) 0.01 10/15/17 15:30 Test 10/15/17 15:30 10/15/17 15:38 10/15/17 15:39 10/15/17 15:50 White Blood Count 3.53 K/uL (4.8-10.8) Red Blood Count 4.25 M/uL (4.7-6.1) Hemoglobin 13.1 g/dL (14.0-18.0) Hematocrit 38.1 % (42-52) Mean Corpuscular Volume 89.6 fL (80-100) Mean Corpuscular Hemoglobin 30.8 pg (25-34) Mean Corpuscular Hemoglobin Concent 34.4 g/dl (32-36) Platelet Count 160 K/uL (130-400) Mean Platelet Volume 9.3 fL (7.4-10.4) Neutrophils (%) (Auto) 79.3 % Lymphocytes (%) (Auto) 8.8 % Monocytes (%) (Auto) 9.9 % Eosinophils (%) (Auto) 1.7 % Basophils (%) (Auto) 0.3 % Neutrophils # (Auto) 2.80 K/uL (1.4-6.5) Lymphocytes # (Auto) 0.31 K/uL (1.2-3.4) Monocytes # (Auto) 0.35 K/uL (0.11-0.59) Eosinophils # (Auto) 0.06 K/uL (0-0.5) Basophils # (Auto) 0.01 K/uL (0-0.2) RDW Standard Deviation 46.5 fL (36.4-46.3) RDW Coefficient of Variation 14.2 % (11.5-14.5) Immature Granulocyte % (Auto) 0.0 % Immature Granulocyte # (Auto) 0.00 K/uL (0.00-0.02) Erythrocyte Sedimentation Rate 2 mm/hr (0-14) Prothrombin Time 12.8 SECONDS (9.0-12.0) Prothromb Time International Ratio 1.2 (0.9-1.1) Activated Partial Thromboplast Time 30.1 SECONDS (21.0-31.0) Partial Thromboplastin Ratio 1.2 Anion Gap 7.0 mmol/L (3-11) Est Creatinine Clear Calc Drug Dose 54.9 ml/min Estimated GFR () 74.5 Estimated GFR (Non- 64.3 BUN/Creatinine Ratio 11.6 (10-20) Calcium Level 8.8 mg/dl (8.5-10.1) Total Bilirubin 1.0 mg/dl (0.2-1) Direct Bilirubin 0.4 mg/dl (0-0.2) Aspartate Amino Transf (AST/SGOT) 26 U/L (15-37) Alanine Aminotransferase (ALT/SGPT) 18 U/L (12-78) Alkaline Phosphatase 126 U/L (45-117) Total Creatine Kinase 61 U/L (39-308) Creatine Kinase MB 1.6 ng/ml (0.5-3.6) Creatine Kinase MB Ratio 2.6 (0-3.0) Total Protein 6.8 gm/dl (6.4-8.2) Albumin 3.3 gm/dl (3.4-5.0) Lipase 108 U/L (73-393) Thyroid Stimulating Hormone (TSH) 1.130 uIu/ml (0.300-4.500) Bedside Lactic Acid Venous 1.43 mmol/L (0.90-1.70) Bedside Troponin I < 0.030 ng/ml (0-0.045) Urine Color ORANGE Urine Appearance CLEAR (CLEAR) Urine pH 6.0 (4.5-7.5) Urine Specific Anderson 1.008 (1.000-1.030) Urine Protein NEG (NEG) Urine Glucose (UA) NEG (NEG) Urine Ketones NEG (NEG) Urine Occult Blood NEG (NEG) Urine Nitrite NEG (NEG) Urine Bilirubin NEG (NEG) Urine Urobilinogen NEG (NEG) Urine Leukocyte Esterase NEG (NEG) Test 10/15/17 18:27 Bedside Glucose 109 mg/dl (70-99) Laboratory studies as stated above per my review. Medications Administered Medications (Trade) Dose Ordered Sig/Tanesha Route Start Time Stop Time Status Last Admin Dose Admin Sodium Chloride 250 ml @ 999 mls/hr Q16M STAT IV 10/15/17 14:53 10/15/17 15:08 DC 10/15/17 14:53 999 MLS/HR Sodium Chloride 1,000 ml @ 100 mls/hr Q10H STAT IV 10/15/17 14:53 10/16/17 00:52 10/15/17 14:53 100 MLS/HR Sodium Chloride 500 ml @ 999 mls/hr Q31M STAT IV 10/15/17 17:06 10/15/17 17:36 DC 10/15/17 17:06 999 MLS/HR Lorazepam (Ativan Inj) 2 mg STK-MED ONCE .ROUTE 10/15/17 18:20 10/15/17 18:21 DC 10/15/17 18:22 1 MG ECG Per My Interpretation Indication: altered mental status Rate (beats per minute): 60 Rhythm: other (Ventricular paced rhythm ) Findings: other (Underlying Afib. ) Comparison ECG Date: April 14 2017 Change: Compared to April 14 2017, paced rhythm is more persistent. ED Course 1447: Past medical records reviewed. The patient was evaluated in room B11, and a complete history and physical examination were performed. 1453: Ordered Sodium Chloride 1000 ml @ 100 mls/hr IV and Sodium Chloride 250 ml @ 999 mls/hr IV 1531: I talked to the patient's daughter. 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 She feels that the patient has been more confused over the past several weeks, but notes that his confusion waxes and wanes. She is concerned about the patient's hydration status. 1700: I reevaluated the patient. He is no distress but is still confused. 1706: Ordered Sodium Chloride 500 ml @ 999 mls/hr IV 1751: I discussed the patient's case with Dr. Jenkins- [facility]. He will evaluate the patient for further treatment and care. 180: The patient has had a seizure. 1820: Ordered Ativan Inj 2mg 1826: I talked to the patient's daughter. She states patient was DNR at one point but is now full code. She is the patient's power of industrial service technician. 1835: I reevaluated the patient. He is much more awake now and is not seizing. He is able to answer questions but he is sleepy. Medical Decision Differentials include, but are not limited to; intracranial process, electrolyte or metabolic abnormality, UTI, sepsis, cardiac disease. This patient comes in as described above. He was placed in room B 11. He has had some altered mental status today has been confused. This is atypical for him. He has had no fall or trauma there is been no specific complaints. I did talk to his daughter Soniya who is his healthcare power of industrial service technician at length on the telephone several times. She can be reached at [phone]. She is concerned about his hydration status. She tells me he did have a Zenker diverticulum that was operated on and he was having aspiration secondary to this in the past this is gotten better at one point he also had a feeding tube. On exam, he is confused answers most questions appropriately. An extensive workup was done. CAT scan of his head was unremarkable. Chest x-ray does not show any definite pneumonia and she has some mild congestive changes. EKG does not suggest acute coronary syndrome or arrhythmia. He has no significant electrolyte or metabolic abnormalities. his urinalysis does not suggest a UTI. I did consult Dr. Jenkins to see him for altered mental status and confusion. Prior to Dr. Jenkins seing him, the patient had a seizure the nurse called me and went into the room and he was having tonic-clonic activity we gave him 1 mg of Ativan IV and the seizure resolved within about 2 minutes. The patient was post ictal briefly and is waking up. He is able answer questions is clearly not seizing at this point. I called and talked to the daughter agreement again. I also asked about CODE STATUS in the past he had been DNR but she believes that he is now full code as he change his mind a couple weeks ago as his health is improved lately. She was going to look into this. I suggested that with this knowledge that he should be full code and she agrees. The patient was admitted for further treatment and evaluation and seen by Dr. Jenkins in the Medication Reconcilliation Current Medication List: was personally reviewed by me Blood Pressure Screening Patient's blood pressure: Normal blood pressure Consults Time Called: 174 Consulting Physician: Dr. Long [facility] Returned Call: [phone]: I discussed the patient's case with Dr. Long [facility]. He will evaluate the patient for further treatment and care. Impression Primary Impression: Altered mental status Additional Impression: Seizure Critical Care Due to the patient's altered mental status and seizure, I have personally spent greater than 30 minutes of critical care time in the direct management of this patient. This includes bedside care, interpretation of diagnostic studies, and testing, discussion with consultants, patient, and family members, and other required patient management activities. This 30 minutes is in excess of all separately billable procedures. Scribe Attestation The scribe's documentation has been prepared under my direction and personally reviewed by me in its entirety. I confirm that the note above accurately reflects all work, treatment, procedures, and medical decision making performed by me. Departure Information Dispostion Being Evaluated By Hospitalist Referrals Wesley Gabriel M.D. (PCP) Patient Instructions My [facility] Problem Qualifiers
[2017-10-15 15:52] LABS: BASO % 0.3 %; BASO ABS # 0.01 K/uL (0-0.2); EOS % 1.7 %; EOS ABS # 0.06 K/uL (0-0.5); HEMATOCRIT 38.1 % (42-52); HEMOGLOBIN 13.1 g/dL (14.0-18.0); LYMPH % 8.8 %; LYMPH ABS # 0.31 K/uL (1.2-3.4); MEAN CELL VOLUME 89.6 fL (80-100); MEAN CORPUSCULAR HEMOGLOBIN 30.8 pg (25-34); MEAN CORPUSCULAR HGB CONC 34.4 g/dl (32-36); MEAN PLATELET VOLUME 9.3 fL (7.4-10.4); MONO % 9.9 %; MONO ABS # 0.35 K/uL (0.11-0.59); NEUT % 79.3 %; PLATELET COUNT 160 K/uL (130-400); RED CELL DISTRIBUTION WIDTH CV 14.2 % (11.5-14.5); RED CELL DISTRIBUTION WIDTH SD 46.5 fL (36.4-46.3); WHITE BLOOD COUNT 3.53 K/uL (4.8-10.8)
[2017-10-15 16:04] LABS: INR 1.2 (0.9-1.1); PTT PATIENT 30.1 SECONDS (21.0-31.0)
[2017-10-15 16:10] LABS: ALBUMIN 3.3 gm/dl (3.4-5.0); CALCIUM 8.8 mg/dl (8.5-10.1); CREATININE 1.04 mg/dl (0.60-1.40)
[2017-10-15] MEDS ORDERED: DOCU100C31 PO (16:19)
[2017-10-15 16:21] LABS: CKMB 1.6 ng/ml (0.5-3.6); TOTAL PROTEIN 6.8 gm/dl (6.4-8.2)
[2017-10-15] MEDS ORDERED: HYDR2.5C37 TOP (16:23)
[2017-10-15] MEDS ORDERED: ARTISOL12 OPB (16:26)
--- NOTE | 2017-10-15 16:27 | DIAGNOSTIC IMAGING REPORT ---
HEAD WITHOUT CONTRAST (CT) CT DOSE: 614.27 mGy.cm HISTORY: Mental status change eval for confusion, visual change TECHNIQUE: Multiaxial CT images of the head were performed without the use of intravenous contrast. A dose lowering technique was utilized adhering to the principles of ALARA. Comparison: 03/16/2017 Findings: The paranasal sinuses and mastoid air cells are clear. The calvarium and skull base are intact. The ventricles and sulci are within normal limits. There is no mass, hematoma, midline shift, or acute infarct. Mild age-related chronic small vessel change Impression: No acute intracranial abnormality. Age-related chronic small vessel change. The above report was generated using voice recognition software. It may contain grammatical, syntax or spelling errors. Electronically signed by: Bereket Cho M.D. 10/15/2017 4:26 PM Dictated Date/Time: 10/15/2017 4:25 PM
[2017-10-15] MEDS ORDERED: SOFT1SOL45 OPB (16:41)
[2017-10-15] MEDS ORDERED: SODIUM CHLORIDE 0.9% 500ML 500 ML IV STA (17:06)
--- NOTE | 2017-10-15 17:21 | DIAGNOSTIC IMAGING REPORT ---
CHEST ONE VIEW PORTABLE CLINICAL HISTORY: CHEST PAIN dyspnea COMPARISON STUDY: 04/14/2017 FINDINGS: Moderate cardiac megaly. Mild prominence of pulmonary vasculature. Permanent unipolar cardiac pacemaker. Diaphragms smooth. IMPRESSION: Cardiomegaly. Potential early congestive failure. The above report was generated using voice recognition software. It may contain grammatical, syntax or spelling errors. Electronically signed by: Bereket Cho M.D. 10/15/2017 5:19 PM Dictated Date/Time: 10/15/2017 5:19 PM
[2017-10-15] MEDS: LORAZEPAM 2 MG/ML 1 ML VIAL ONE ×2 (18:22→18:50)
[2017-10-15] MEDS ORDERED: ARTIFICIAL TEARS OP SOLN OPB PRN (18:45)
[2017-10-15] MEDS ORDERED: ZOLPIDEM TARTRATE 5 MG TAB PO PRN (18:45)
[2017-10-15] MEDS ORDERED: POLYETHYLENE (MIRALAX) 17 GM PACK PO PRN ×2 (18:45)
[2017-10-15] MEDS ORDERED: ONDANSETRON INJ 2 MG/ML 2 ML VIAL IV PRN (18:45)
[2017-10-15] MEDS ORDERED: ENOXAPARIN 40 MG/0.4 ML SYR SC SCH (18:45)
[2017-10-15] MEDS ORDERED: ACETAMINOPHEN 325 MG TAB PO PRN (18:45)
[2017-10-15] MEDS ORDERED: MAGNESIUM HYDROXIDE SUSP 30 ML UDC PO PRN ×2 (18:45)
[2017-10-15] MEDS ORDERED: ACETAMINOPHEN SOLN 500 MG/15.62 ML UDP PO PRN (18:45)
[2017-10-15] MEDS ORDERED: ALUMINUM/MAGNESIUM/SIMETH (MAALOX MAX) 30 ML UDC PO PRN (18:45)
[2017-10-15 19:00] VITALS: Ht 182.9 cm; Wt 80.5 kg
[2017-10-15 20:00] VITALS: BP 120/73; PULSE 65; TEMP 36.4; O2SAT 95
[2017-10-15] MEDS: ALBUT/IPRATROP 3MG/0.5MG NEB 3 ML VIAL INH SCH (20:00)
[2017-10-15] MEDS: SODIUM CHLORIDE 0.9% 1000ML 1,000 ML IV SCH (20:30)
[2017-10-15] MEDS: HYDROCORTISONE HC 2.5% CRM 30GM TUBE EXT SCH (21:00)
[2017-10-15] MEDS: LEVETIRACETAM IV 500 MG in DEXTROSE 5% 100ML 100 ML IV SCH (21:09)
--- NOTE | 2017-10-15 21:21 | HISTORY & PHYSICAL EXAMINATION ---
DATE OF ADMISSION: 10/15/2017 This is level 3 inpatient admission, 35 minutes. CHIEF COMPLAINT: Altered mental status and found to have seizure episode in the Emergency Room. HISTORY OF PRESENT ILLNESS: Patient is an 87-year-old white male with a significant past medical history of seizure, GERD, hypertension, dyslipidemia, history of hernia repairing, respiratory failure, PEG tube feeding, pzlrv-yx-qvqyocr diastolic congestive heart failure, chronic AFib currently on Xarelto, has history of pacemaker placement, hypertension, dyslipidemia, ascending aortic aneurysm or dilatation, coming into the hospital Emergency Department because of Altered mental status. The medical information was obtained from ED physician, patient, and patient's family. Per report, patient is a resident in assisted living , [facility] , reportedly complained about double vision for several days. He was found to have an elevated blood glucose >200 in [facility]. Per report, has been confused for several days. Feeling lightheaded and dizziness. In the Emergency Room, initially comprehensive evaluation included CBC, BMP, head CT studies. TSH and chest x-rays were unremarkable. Later, patient had one episode of grand mal seizure in the Emergency Room, which lasted about 3-5 minutes associated with salivary dripping , witnessed by RN. Patient got 1 dose of Ativan and now he has gradually recovered, denied any injuries. Patient got 1 dose of Ativan in the Emergency Room for seizure episodes. PAST MEDICAL HISTORY: Like I mentioned in the above. PAST SURGICAL HISTORY: Includes hernia repairing, pacer placement. FAMILY HISTORY: Included GI malignancy. SOCIAL HISTORY: Patient is a former smoker. Denied alcohol abuse disorder, denied illicit drug abuse. CURRENT MEDICATIONS: Include Lipitor 40 mg p.o. q.p.m., Zyrtec 10 mg p.o. q.a.m., docusate 100 mg p.o. q.a.m., ferrous sulfate 325 mg p.o. b.i.d., Proscar 5 mg p.o. q.p.m., hydrocortisone 2.5% topical use b.i.d., Keppra 500 mg p.o. b.i.d., magnesium gluconate 500 mg p.o. q.a.m., Protonix 40 mg p.o. q.a.m., potassium chloride 20 mEq p.o. q.a.m., Xarelto 20 mg p.o. at bedtime, tamsulosin 0.4 mg p.o. at bedtime. As needed medications include Tylenol, Dulcolax, DuoNeb, milk of magnesia, MiraLax, Fleet's enema, etc. ALLERGIES: No known drug allergies. REVIEW OF SYSTEMS: Please see HPI, otherwise 14 points organ system review was negative. PHYSICAL EXAMINATION: GENERAL: Patient is confused postictally. Ill appearing, decreased hearing. Per ED report, he was able to answer most of the questions appropriately. HEAD: Normocephalic. EYES: Pupils equal, round, responds to light. EARS: Normal. NOSE: Normal. MOUTH AND THROAT: There was no swelling on the mouth on the lip or tongue. NECK: Supple. Trachea midline. No JVD. LUNGS: Clear to auscultation. No wheezing, rhonchi, or crackles. HEART: Regular rhythm. ABDOMEN: Soft, nontender. Bowel sound was positive. EXTREMITIES: Lower extremities, no edema, no clubbing, no cyanosis. CVA was nontender. SKIN: Has no rashes. NEUROLOGICAL EVALUATION: Cranial nerves II-XII was intact. There were no local deficits. IMAGING STUDIES: Head CT studies in the Emergency Room, there were no acute intracranial abnormalities. Chest x-ray was done in the ED, cardiomegaly, potential early congestive heart failure. LABORATORY STUDIES: In the Emergency Room, WBC 3.5, hemoglobin 13, platelet 160. PT/INR was 12/1.2. Sodium 134, potassium 4, chloride 102, BUN 12, creatinine 1.04. Blood glucose 109 during the episodes of the seizures. Liver function test was within normal limits. Albumin 3.3, lipase 108. TSH 1.1. UA was not remarkable. Blood culture, urine culture was sent. ASSESSMENT AND PLAN: R[age]ds[age]pbifq-ghgp-old white male with conditions seen below: 1. Seizure episodes with history of seizure more than 10 years ago. Mental status changes likely from seizure episodes. 2. History of acute respiratory failure secondary to aspiration pneumonia. 3. History of PEG tube feeding, no more PEG tube feeding. 4. History of kqlrf-fu-blwmlew diastolic congestive heart failure and valve disease. 5. History of atrial fibrillation, on Xarelto currently. 6. History of pacer replacement. 7. Hypertension. 8. Dyslipidemia. 9. History of ascending thoracic aorta aneurysmal dilatation. Patient coming to the Emergency Room because of altered mental status. We have not been able to find out any reason to explain why mental status changes. Urine culture and blood culture were sent. In the Emergency Room, he had one episode of seizure. Therefore, possible mental status changes are secondary to seizure. For the seizure episode, he was having history of seizure for 10 years, and is on Keppra. I believe he has been on Keppra regularly. Not able to obtain if he missed the dose of Keppra or not. For now, we will continue home dose of Keppra. We will change to IV so that able to make sure patient gets this medication regularly. At the same time, order EEG, neurology consultation. Check brain MRI. Possibly not able to check brain MRI because of history of pacemaker. At the same time, follow urine and blood culture results. Check ESR, CRP, procalcitonin levels. Will have seizure precaution, aspiration precaution. Give mechanical soft diet for now. Speech evaluation too. We ordered social services technician and PT, OT evaluation and treatment. For the other medical conditions such as hypertension, dyslipidemia, GERD, BPH, and history of AFib, we will continue home medications such as Xarelto for AFib. GI and DVT prophylaxis, covered. ED physician called to patient's daughter and reported to daughter patient has seizure episodes. Discussed with her about code status. Daughter reported patient was DNR before. Patient himself changed to full code. We need to keep full code for now and after patient is more awake and alert, we need to talk to patient about code status again. ZORA
[2017-10-15] MEDS: RIVAROXABAN 10 MG TAB PO SCH (21:41)
[2017-10-15] MEDS: ATORVASTATIN 40 MG TAB PO SCH (21:41)
[2017-10-15] MEDS: FINASTERIDE 5 MG TAB PO SCH (21:42)
[2017-10-15] MEDS: FERROUS SULFATE 325 MG TAB PO SCH (21:42)
[2017-10-15] MEDS: TAMSULOSIN HCL 0.4 MG CAP PO SCH (21:42)
[2017-10-15 23:42] VITALS: BP 146/79; PULSE 64; TEMP 36.4; O2SAT 98
[2017-10-16] VITALS (12 sets, daily range): BP systolic 130–166; BP diastolic 70–97; PULSE 59–86; TEMP 35.6–36.9; O2SAT 93–99
[2017-10-16] MEDS ORDERED: NURSING VERBAL MED ORDER ONE ×2 (03:45)
[2017-10-16] MEDS ORDERED: LORAZEPAM INJ 1 MG in SYRINGE 0.5 ML IV PRN (04:00)
[2017-10-16] MEDS ORDERED: LORAZEPAM 2 MG/ML 1 ML VIAL IV PRN (04:00)
[2017-10-16] MEDS ORDERED: LEVETIRACTAM 500 MG in DEXTROSE 5% 100ML IV PRN (04:15)
[2017-10-16] MEDS: ALBUT/IPRATROP 3MG/0.5MG NEB 3 ML VIAL INH SCH ×4 (07:12→19:19)
[2017-10-16] MEDS ORDERED: MAGNESIUM GLUCONATE 500 MG PO SCH (09:00)
[2017-10-16] MEDS: FERROUS SULFATE 325 MG TAB PO SCH ×2 (09:00→20:18)
--- NOTE | 2017-10-16 09:06 | Neurology Consultation ---
Neurology Consultation Date of Consultation: Oct 16, 2017. Attending Physician: Young Jenkins MD, PhD Primary Care Physician: Wesley Gabriel M.D. Reason for Consultation: Seizures History of Present Illness Source: hospital records The patient is an 87-year-old male [facility] resident with a history of seizure disorder which began in February of 2017 in the context of encephalopathy. He was admitted to the hospital at that time and evaluated by Dr. Cochran. A neurological workup at that time including brain MRI and EEG were generally unremarkable, however. The EEG revealed encephalopathy. The MRI revealed chronic small vessel ischemic disease. A carotid duplex was unremarkable. He was started on Keppra at that time and was last seen in Neurology Clinic in March of 2017. No changes in his anticonvulsant regimen or made at that time. The patient was scheduled for a follow-up appointment with Dr. Cochran for tomorrow. Past medical history also notable for chronic atrial fibrillation for which the patient is taking Xarelto. He also has a pacemaker. Past medical history also notable for hypertension, hyperlipidemia, and PEG tube placement. The patient presented to the emergency department complaining of dizziness and double vision. He has been noted to be confused for the past few days. A blood glucose of 230 was reported. During this patient's assessment in the emergency department he had a witnessed seizure-like episode consisting of tonic-clonic activity which resolved in about 2 minutes after administration of lorazepam. He had a another brief seizure-like episode that occurred overnight, at around 3 :40 in the morning after ambulating to the bathroom. This episode resolved within about 1 minutes after administration of lorazepam. The patient had received 500 milligrams of Keppra IV at about [address] of the head completed during his assessment in the emergency department was negative for hemorrhage or acute process. I reviewed the images as well as the radiologist's interpretation of this test. Electrocardiogram reveals a ventricular paced rhythm, atrial fibrillation, heart rate about 60 beats per minute. The patient is significantly confused this morning and is an unreliable historian. An EEG was completed this morning. I reviewed the tracing. There is a poorly organized background rhythm that consists of an 8-9 hertz alpha frequency with superimposed 6 hertz theta activity. There is frontal delta slowing seen intermittently. There is frequent movement artifact. The EEG is suggestive mild encephalopathy. No epileptiform abnormalities appreciated. Past Medical/Surgical History Medical Problems: (1) Altered mental status Status: Acute (2) Altered mental status Status: Acute (3) Bleeding internal hemorrhoids Status: Acute (4) Constipation Status: Acute (5) Epistaxis Status: Acute (6) Hypoxia Status: Acute (7) Lactic acidosis Status: Acute (8) Obstipation Status: Acute (9) PNA (pneumonia) Status: Acute (10) Respiratory failure Status: Acute (11) Seizure Status: Acute (12) Severe anemia Status: Acute (13) Sinusitis Status: Acute (14) Skin lesion of scalp Status: Acute (15) Vertigo Status: Acute (16) Vomiting Status: Acute (17) Weakness Status: Acute Family History There is a family history of GI malignancy Social History Smoking Status: Never smoker Drug Use: none Marital Status: Housing Status: assisted living Occupation Status: retired Allergies Coded Allergies: No Known Allergies (Verified , 09/27/17) Current Inpatient Medications Current Inpatient Medications Medications (Trade) Dose Ordered Sig/Tanesha Route Start Time Stop Time Status Last Admin Dose Admin Sodium Chloride 1,000 ml @ 50 mls/hr Q20H IV 10/15/17 20:00 11/14/17 19:59 10/15/17 20:30 50 MLS/HR Acetaminophen (Tylenol Tab) 650 mg Q4H PRN PO 10/15/17 18:45 11/14/17 18:44 10/15/17 20:41 650 MG Al Hydrox/Mg Hydrox/Simethicone (Maalox Max Susp) 15 ml Q4H PRN PO 10/15/17 18:45 11/14/17 18:44 Magnesium Hydroxide (Milk Of Magnesia Susp) 30 ml Q12H PRN PO 10/15/17 18:45 11/14/17 18:44 Zolpidem Tartrate (Ambien Tab) 5 mg HSZ PRN PO 10/15/17 18:45 11/14/17 18:44 Ondansetron HCl (Zofran Inj) 4 mg Q6H PRN IV 10/15/17 18:45 11/14/17 18:44 Atorvastatin Calcium (Lipitor Tab) 40 mg QPM PO 10/15/17 21:00 11/14/17 20:59 10/15/17 21:41 40 MG Cetirizine HCl (zyrTEC TAB) 10 mg QAM PO 10/16/17 09:00 11/15/17 08:59 Docusate Sodium (coLACE CAP) 100 mg QAM PO 10/16/17 09:00 11/15/17 08:59 Finasteride (Proscar Tab) 5 mg QPM PO 10/15/17 21:00 11/14/17 20:59 10/15/17 21:42 5 MG Hydrocortisone (Proctozone Hc 2.5% Crm) 1 appln BID EXT 10/15/17 21:00 11/14/17 20:59 Pantoprazole Sodium (Protonix Tab) 40 mg QAM PO 10/16/17 09:00 11/15/17 08:59 Rivaroxaban (Xarelto Tab) 20 mg HS PO 10/15/17 21:00 11/14/17 20:59 10/15/17 21:41 20 MG Tamsulosin HCl (Flomax Cap) 0.4 mg HS PO 10/15/17 21:00 11/14/17 20:59 10/15/17 21:42 0.4 MG Artificial Tears (Artificial Tears) 3 drops Q2H PRN OPB 10/15/17 18:45 11/14/17 18:44 Ferrous Sulfate (Feosol Tab) 325 mg BID PO 10/15/17 21:00 11/14/17 20:59 10/15/17 21:42 325 MG Polyethylene (Miralax Powder Packet) 17 gm BID PRN PO 10/15/17 18:45 11/14/17 18:44 Albuterol/ Ipratropium (Duoneb) 3 ml QIDR INH 10/15/17 20:00 11/14/17 19:59 10/16/17 07:12 3 ML Levetiracetam 500 mg/Dextrose 105 ml @ 420 mls/hr Q12 IV 10/15/17 20:30 11/14/17 20:29 10/15/17 21:09 420 MLS/HR Lorazepam 1 mg/ Syringe 1 ml @ 1 mls/min Q10M PRN IV 10/16/17 04:00 11/15/17 03:59 Lorazepam (Ativan Inj) 1 mg Q10M PRN IV 10/16/17 04:00 11/15/17 03:59 Levetiracetam 500 mg/Dextrose 105 ml @ 420 mls/hr PRN PRN IV 10/16/17 04:15 11/15/17 04:14 Review of Systems I am unable to complete a reliable review of systems this morning due to this patient's considerable confusion Physical Exam Vital Signs (Past 24 Hrs): Date Time Temp Pulse Resp B/P (MAP) Pulse Ox O2 Delivery O2 Flow Rate FiO2 10/16/17 07:37 36.9 84 18 149/74 (99) 95 10/16/17 07:25 73 18 95 Room Air 10/16/17 04:00 99 Nasal Cannula 2.0 10/16/17 03:37 36.4 72 20 156/89 (111) 99 Nasal Cannula 2.0 10/16/17 00:00 Nasal Cannula 95.0 10/15/17 23:42 36.4 64 21 146/79 (101) 98 Nasal Cannula 2.0 10/15/17 20:00 36.4 65 20 120/73 (89) 95 2.0 10/15/17 20:00 Nasal Cannula 95.0 10/15/17 19:00 Nasal Cannula 10/15/17 18:57 60 120/79 99 10/15/17 17:44 64 18 123/77 100 Room Air 10/15/17 16:36 67 10/15/17 16:03 68 26 98/66 98 Room Air 10/15/17 14:52 37.2 82 16 113/72 95 Room Air 10/15/17 14:40 65 This patient's neurological examination is limited due to his considerable confusion. The patient is a well-developed elderly male. He is lying quietly in bed. He is alert and oriented to person only. Memory cannot be assessed. Attention is impaired. The patient offers very little spontaneous speech. He does not cooperate adequately for testing of naming or repetition. He was able to read a few words out loud. Fund of knowledge cannot be assessed. Visual muhammad grossly full to confrontation. Pupils equal round react to light and accommodation. Eye movements normal. Facial sensation intact. There is normal facial strength. No facial droop. The patient does not cooperate adequately for testing of movement of the palate, tongue, or shoulder shrug. Sensory examination cannot be reliably tested. Deep tendon reflexes are diffusely diminished. Plantar responses upgoing bilaterally. The patient does not cooperate for testing of [id number] or heel to wilcox. The patient does not cooperate adequately for direct ophthalmoscopic examination. Carotid pulses normal bilaterally, no bruits to auscultation. Gait and station cannot be tested. Patient does not cooperate adequately for testing of muscle strength for both the upper and lower extremities. He does not have an obvious hemiparesis. There is no pronator drift. I did observe the patient lift both the left and right upper limb out of the bed spontaneously. Muscle tone diffusely normal. No atrophy. No abnormal movements observed. Laboratory Results Past 24 Hours: 10/15/17 15:30 Red Blood Count 4.25, Mean Corpuscular Volume 89.6, Mean Corpuscular Hemoglobin 30.8, Mean Corpuscular Hemoglobin Concent 34.4, Mean Platelet Volume 9.3, Neutrophils (%) (Auto) 79.3, Lymphocytes (%) (Auto) 8.8, Monocytes (%) (Auto) 9.9, Eosinophils (%) (Auto) 1.7, Basophils (%) (Auto) 0.3, Neutrophils # (Auto) 2.80, Lymphocytes # (Auto) 0.31, Monocytes # (Auto) 0.35, Eosinophils # (Auto) 0.06, Basophils # (Auto) 0.01 10/15/17 15:30 Test 10/15/17 15:30 10/15/17 15:38 10/15/17 15:39 10/15/17 15:50 White Blood Count 3.53 K/uL (4.8-10.8) Red Blood Count 4.25 M/uL (4.7-6.1) Hemoglobin 13.1 g/dL (14.0-18.0) Hematocrit 38.1 % (42-52) Mean Corpuscular Volume 89.6 fL (80-100) Mean Corpuscular Hemoglobin 30.8 pg (25-34) Mean Corpuscular Hemoglobin Concent 34.4 g/dl (32-36) Platelet Count 160 K/uL (130-400) Mean Platelet Volume 9.3 fL (7.4-10.4) Neutrophils (%) (Auto) 79.3 % Lymphocytes (%) (Auto) 8.8 % Monocytes (%) (Auto) 9.9 % Eosinophils (%) (Auto) 1.7 % Basophils (%) (Auto) 0.3 % Neutrophils # (Auto) 2.80 K/uL (1.4-6.5) Lymphocytes # (Auto) 0.31 K/uL (1.2-3.4) Monocytes # (Auto) 0.35 K/uL (0.11-0.59) Eosinophils # (Auto) 0.06 K/uL (0-0.5) Basophils # (Auto) 0.01 K/uL (0-0.2) RDW Standard Deviation 46.5 fL (36.4-46.3) RDW Coefficient of Variation 14.2 % (11.5-14.5) Immature Granulocyte % (Auto) 0.0 % Immature Granulocyte # (Auto) 0.00 K/uL (0.00-0.02) Erythrocyte Sedimentation Rate 2 mm/hr (0-14) Prothrombin Time 12.8 SECONDS (9.0-12.0) Prothromb Time International Ratio 1.2 (0.9-1.1) Activated Partial Thromboplast Time 30.1 SECONDS (21.0-31.0) Partial Thromboplastin Ratio 1.2 Anion Gap 7.0 mmol/L (3-11) Est Creatinine Clear Calc Drug Dose 54.9 ml/min Estimated GFR () 74.5 Estimated GFR (Non- 64.3 BUN/Creatinine Ratio 11.6 (10-20) Calcium Level 8.8 mg/dl (8.5-10.1) Total Bilirubin 1.0 mg/dl (0.2-1) Direct Bilirubin 0.4 mg/dl (0-0.2) Aspartate Amino Transf (AST/SGOT) 26 U/L (15-37) Alanine Aminotransferase (ALT/SGPT) 18 U/L (12-78) Alkaline Phosphatase 126 U/L (45-117) Total Creatine Kinase 61 U/L (39-308) Creatine Kinase MB 1.6 ng/ml (0.5-3.6) Creatine Kinase MB Ratio 2.6 (0-3.0) Total Protein 6.8 gm/dl (6.4-8.2) Albumin 3.3 gm/dl (3.4-5.0) Lipase 108 U/L (73-393) Thyroid Stimulating Hormone (TSH) 1.130 uIu/ml (0.300-4.500) Bedside Lactic Acid Venous 1.43 mmol/L (0.90-1.70) Bedside Troponin I < 0.030 ng/ml (0-0.045) Urine Color ORANGE Urine Appearance CLEAR (CLEAR) Urine pH 6.0 (4.5-7.5) Urine Specific [place] 1.008 (1.000-1.030) Urine Protein NEG (NEG) Urine Glucose (UA) NEG (NEG) Urine Ketones NEG (NEG) Urine Occult Blood NEG (NEG) Urine Nitrite NEG (NEG) Urine Bilirubin NEG (NEG) Urine Urobilinogen NEG (NEG) Urine Leukocyte Esterase NEG (NEG) Test 10/15/17 18:27 10/16/17 07:46 Bedside Glucose 109 mg/dl (70-99) Impression This is an 87-year-old male who began experiencing generalized seizure-like episodes this past February. His initial workup including brain MRI and EEG were generally unremarkable and not diagnostic of epilepsy. The EEG did reveal a nonspecific encephalopathy at that time. This patient has several chronic medical conditions that could be triggering factors for the observed seizure- like episodes. It is notable that the episode that occurred overnight was triggered after getting back into bed after using the restroom. He may have had an episode of convulsive syncope perhaps triggered by hypoperfusion. However, he is notably confused this morning and could be postictal. Recent cardioembolic stroke not excluded. Plan I have recommended increasing his dosage of Keppra to 750 milligrams twice daily. He may continue with the IV formulation of this medication for the time being. However, it may switched over to a p.o. formulation administered through his PEG tube once he is medically stabilized. If the episodes are triggered by syncope or hypotension, then it is unclear to what extent the above anticonvulsant adjustment will make with regards to the occurrence of his seizures. Assistance should be required when getting up out of bed and with ambulating to avoid potential falls. Continue medical management of patient's blood pressure which was as low as 98/ 66 yesterday. Outpatient follow-up with Dr. Cochran was actually scheduled for tomorrow. This appointment will most likely need to be rescheduled. Follow-up with results of brain MRI when available. MRI will probably need to be coordinated with Cardiology given this patient's pacemaker.
--- NOTE | 2017-10-16 09:13 | EEG Procedure Note ---
EEG Procedure Note Date of Service Oct 16, 2017. Start / End Times Start Time: 7:55 a.m. End Time: 8:[address] Jenkins History History of seizure disorder. Recent observe seizure activity. Home Medication List Scheduled Atorvastatin (Lipitor), 40 MG PO QPM Cetirizine (Zyrtec), 10 MG PO QAM Docusate Sodium (Docusate Sodium), 100 MG PO QAM Ferrous Sulfate (Kp Ferrous Sulfate), 325 MG PO BID Finasteride (Proscar), 5 MG PO QPM Hydrocortisone 2.5% (Rectal) (Anusol-Hc 2.5%), 1 APPLN TOP BID Levetiracetam (Keppra), 500 MG PO BID Magnesium Gluconate (Mag-G), 500 MG PO QAM Pantoprazole (Protonix), 40 MG PO QAM Potassium Chloride (Potassium Chloride), 20 ML PO QAM Rivaroxaban (Xarelto), 20 MG PO HS Tamsulosin Hcl (Flomax), 0.4 MG PO HS Scheduled PRN Acetaminophen (Tylenol), 650 MG PO Q4H PRN for Pain or Fever Acetaminophen (Mapap), 650 MG PO Q4H PRN for Pain or Fever Artificial Tear Solution (Artificial Tears), 3 DROPS OPB Q2H PRN for DRY EYES Bisacodyl (Dulcolax), 1 SUPP AL Q48HRS PRN for Constipation Ipratropium-Albuterol (Duoneb), 1 TREATMENT INH QID PRN for Wheezing Magnesium Hydroxide (Milk of Magnesia), 30 ML PO Q48H PRN for Constipation Polyethylene Glycol 3350 (Miralax), 17 GM PO BID PRN for Constipation Sodium Phosphate/Biphosphate (Fleet Enema), 1 EA AL Q72H PRN for Constipation Soft Lens Products (Saline Solution), 3 DROPS OPB Q2H PRN for EYE IRRITATION Inpatient Medication List Current Inpatient Medications Medications (Trade) Dose Ordered Sig/Tanesha Route Start Time Stop Time Status Last Admin Dose Admin Sodium Chloride 1,000 ml @ 50 mls/hr Q20H IV 10/15/17 20:00 11/14/17 19:59 10/15/17 20:30 50 MLS/HR Acetaminophen (Tylenol Tab) 650 mg Q4H PRN PO 10/15/17 18:45 11/14/17 18:44 10/15/17 20:41 650 MG Al Hydrox/Mg Hydrox/Simethicone (Maalox Max Susp) 15 ml Q4H PRN PO 10/15/17 18:45 11/14/17 18:44 Magnesium Hydroxide (Milk Of Magnesia Susp) 30 ml Q12H PRN PO 10/15/17 18:45 11/14/17 18:44 Zolpidem Tartrate (Ambien Tab) 5 mg HSZ PRN PO 10/15/17 18:45 11/14/17 18:44 Ondansetron HCl (Zofran Inj) 4 mg Q6H PRN IV 10/15/17 18:45 11/14/17 18:44 Atorvastatin Calcium (Lipitor Tab) 40 mg QPM PO 10/15/17 21:00 11/14/17 20:59 10/15/17 21:41 40 MG Cetirizine HCl (zyrTEC TAB) 10 mg QAM PO 10/16/17 09:00 11/15/17 08:59 Docusate Sodium (coLACE CAP) 100 mg QAM PO 10/16/17 09:00 11/15/17 08:59 Finasteride (Proscar Tab) 5 mg QPM PO 10/15/17 21:00 11/14/17 20:59 10/15/17 21:42 5 MG Hydrocortisone (Proctozone Hc 2.5% Crm) 1 appln BID EXT 10/15/17 21:00 11/14/17 20:59 Pantoprazole Sodium (Protonix Tab) 40 mg QAM PO 10/16/17 09:00 11/15/17 08:59 Rivaroxaban (Xarelto Tab) 20 mg HS PO 10/15/17 21:00 11/14/17 20:59 10/15/17 21:41 20 MG Tamsulosin HCl (Flomax Cap) 0.4 mg HS PO 10/15/17 21:00 11/14/17 20:59 10/15/17 21:42 0.4 MG Artificial Tears (Artificial Tears) 3 drops Q2H PRN OPB 10/15/17 18:45 11/14/17 18:44 Ferrous Sulfate (Feosol Tab) 325 mg BID PO 10/15/17 21:00 11/14/17 20:59 4/22/18 21:42 325 MG Polyethylene (Miralax Powder Packet) 17 gm BID PRN PO 10/15/17 18:45 11/14/17 18:44 Albuterol/ Ipratropium (Duoneb) 3 ml QIDR INH 10/15/17 20:00 11/14/17 19:59 10/16/17 07:12 3 ML Levetiracetam 500 mg/Dextrose 105 ml @ 420 mls/hr Q12 IV 10/15/17 20:30 11/14/17 20:29 10/15/17 21:09 420 MLS/HR Lorazepam 1 mg/ Syringe 1 ml @ 1 mls/min Q10M PRN IV 10/16/17 04:00 11/15/17 03:59 Lorazepam (Ativan Inj) 1 mg Q10M PRN IV 10/16/17 04:00 11/15/17 03:59 Levetiracetam 500 mg/Dextrose 105 ml @ 420 mls/hr PRN PRN IV 10/16/17 04:15 11/15/17 04:14 Description This is a 21 electrode EEG with a single channel dedicated to limited EKG. The electrodes were placed in accordance with the International 10-20 system. This is a bedside EEG completed on the telemetry unit. The background rhythm consists of poorly organized 7-8 hertz alpha and admixed 6 hertz theta frequencies. Faster beta activity seen frontally. His overall rhythm appears symmetrical. Photic stimulation and hyperventilation were not performed. There is movement artifact noted throughout the study. The patient continues to talk and move his head on the video component of the study. There is some intermittent frontal delta activity as well. There is no focal slowing. Epileptiform abnormalities not appreciated. Interpretation This EEG reveals mild generalized slowing consistent with nonspecific encephalopathy. No epileptiform abnormalities appreciated. Clinical Correlation Although this EEG reveals a generalized mild nonspecific encephalopathy, there is no evidence of seizure activity or epileptiform abnormalities in spite of this patient's history. Please see this morning's neurology consult for further details pertaining to this patient's clinical status.
[2017-10-16] MEDS: CETIRIZINE HCL 10 MG TAB PO SCH (09:17)
[2017-10-16] MEDS: DOCUSATE SODIUM 100 MG CAP PO SCH (09:17)
[2017-10-16] MEDS: LEVETIRACETAM IV 500 MG in DEXTROSE 5% 100ML 100 ML IV SCH (09:17)
[2017-10-16] MEDS: PANTOprazole SOD 40 MG TAB PO SCH (09:17)
[2017-10-16] MEDS: HYDROCORTISONE HC 2.5% CRM 30GM TUBE EXT SCH ×2 (09:18→19:28)
[2017-10-16] MEDS ORDERED: MAGNESIUM SULFATE 1GM / D5W 100 ML IV ONE (11:30)
[2017-10-16] MEDS ORDERED: LEVETIRACETAM IV 250 MG in DEXTROSE 5% 100ML 100 ML IV ONE (11:30)
[2017-10-16] MEDS ORDERED: GADAVIST IV PRN (17:00)
--- NOTE | 2017-10-16 17:08 | DIAGNOSTIC IMAGING REPORT ---
BRAIN COMBO CLINICAL HISTORY: Seizure, AMS . Mental status change. COMPARISON STUDY: 03/13/2017 TECHNIQUE: Utilizing a 1.5 Yany magnet and dedicated coil, multiplanar, multiecho imaging of the brain was performed pre and postcontrast administration. IV administration of 8 mL of Gadavist contrast was uneventful. FINDINGS: Diffusion images are negative for an acute ischemic event. Signal characteristics the cerebellar as well as cerebral hemispheres indicate a component of atrophy. There is mild chronic ventricular prominence. There is no abnormal postcontrast enhancement. Moderate chronic small vessel change is noted and is unchanged. There is mild mucosal thickening of the right mastoid air cells with a trace amount of the left. IMPRESSION: 1. Chronic and age-related change. No acute intracranial abnormality. Moderate mucosal thickening of the right and to a lesser extent left mastoid air cells. The above report was generated using voice recognition software. It may contain grammatical, syntax or spelling errors. Electronically signed by: Bereket Cho M.D. 10/16/2017 5:06 PM Dictated Date/Time: 10/16/2017 5:03 PM
[2017-10-16] MEDS ORDERED: VANCOMYCIN CONSULT ACTIVE PRN (18:30)
[2017-10-16] MEDS: SODIUM CHLORIDE 0.9% 1000ML 1,000 ML IV SCH (18:39)
[2017-10-16] MEDS ORDERED: LEVETIRACETAM IV 1,000 MG in DEXTROSE 5% 100ML 100 ML IV ONE (19:00)
[2017-10-16] MEDS ORDERED: VANCOMYCIN IV 2,000 MG in SODIUM CHLORIDE 0.9% 500ML 500 ML IV ONE (19:00)
--- NOTE | 2017-10-16 19:51 | Pharmacy Progress Note ---
Pharmacy Abx Initial Consult Date of Service Oct 16, 2017. Pharmacy Dosing Scope Date of Consult: 10/16/17 Consultation requested by: Dr. Cloud Pharmacy is consulted to initiate Vancomycin IV dosing therapy, order appropriate labs and adjust drug dose/frequency. Subjective The patient is a 87 year old male admitted on Oct 15, 2017 at 18:40, now with gram positive cocci growing in 1 of 2 blood cultures, repeat blood cultures today. Objective Height (Feet): 6 Height (Inches): 0.00 Weight (Kilograms): 78.000 Vital Signs (Past 12Hrs) Vital Signs Past 12 Hours Date Time Temp Pulse Resp B/P (MAP) Pulse Ox O2 Delivery O2 Flow Rate FiO2 10/16/17 19:21 62 20 95 Room Air 10/16/17 16:00 35.6 73 18 131/83 (99) 97 10/16/17 16:00 Room Air 10/16/17 15:43 61 18 95 Room Air 10/16/17 13:56 70 96 10/16/17 12:00 Room Air 10/16/17 11:46 36.9 59 18 130/70 (90) 96 10/16/17 11:18 61 18 95 Room Air 10/16/17 08:00 Room Air Lab Results (24Hrs) Item Value Date Time Creatinine 1.04 mg/dl 10/15/17 1530 Est Creatinine Clear Calc Drug Dose 54.9 ml/min 10/15/17 1530 Micro Results Date/Time Source Procedure Growth Status 10/16/17 11:45 Blood Blood Culture Pending Received 10/16/17 11:33 Blood Blood Culture Pending Received 10/15/17 15:32 Blood Blood Culture - Preliminary Gram Positive Cocci Resulted 10/15/17 15:30 Blood Blood Culture Pending Received 10/15/17 15:50 Urine,Catheterized Urine Culture - Preliminary NO GROWTH - LESS THAN 1,000 COLONIES/... Resulted Risk Factors for Resistance * Resident in a fpc or extended-care facility Assessment & Plan Assessment 87 year old male with gram positive cocci growing in 1/2 blood cultures, repeat cultures pending. Plan IV Vancomycin for treatment of bacteremia Vancomycin IV * Loading dose: 2000 mg (25 mg/kg) * Maintenance dose: 1250 mg IV (16 mg/kg) every 12 hours * Estimated pharmacokinetic parameters: T1/2 13.8hr, Narayan 0.05/hr, Vd 0.7L/Kg * Goal trough level for bacteremia : 15 to 20 mcg/mL * Trough level ordered for 10/18/17 prior to 0600 dose, this is prior to 4th total dose * Pt had therapeutic Vancomycin levels when on this dose in February, but had better SCr at that time, will start at this dose, and closely monitor SCr and Vancomycin levels * Ordered SCr Pharmacy will continue to follow and will adjust dose/frequency as necessary. Thank you.
--- NOTE | 2017-10-16 20:12 | Progress Note ---
Subjective Date of Service: Oct 16, 2017. Subjective Pt evaluation today including: conversation w/ patient, conversation w/ family (Soniya, daughter, by phone), physical exam, chart review, lab review, review of studies (EEG, MRI brain, old records ), conversation w/ solar energy consultant and designer (neurology), review of inpatient medication list Pain: none voiced during the visit PO Intake: poor/fair overnight the patient had another brief seizure - was generalized/tonic-clonic telemetry wnl during AM rounds the patient was sleeping he awoke easily to name being called he was hearing impaired and thus communication was challenging he appeared confused, talking about almonds, and then a red/white/blue flag he did know was in the hospital, that it was Monday, and that it was 2017 at the conclusion of the visit he stated "so, I had a seizure?" he doesn't recall missing any doses of medication at [facility] later on in the day the patient had a brief, <15 second generalized seizure witnessed by staff he was laying in the bed when it occurred had associated drooling with it spoke with daughter by phone - she reports he is a/o x 3 at baseline she confirms he had been confused for about 1 week prior to presenting she feels he "wore himself out" in the days leading up to the confusion she also thinks he has had a difficult transition to SNF at [facility] as he was previously very independent Problem List Medical Problems: (1) Altered mental status Status: Acute (2) Altered mental status Status: Acute (3) Bleeding internal hemorrhoids Status: Acute (4) Constipation Status: Acute (5) Epistaxis Status: Acute (6) Hypoxia Status: Acute (7) Lactic acidosis Status: Acute (8) Obstipation Status: Acute (9) PNA (pneumonia) Status: Acute (10) Respiratory failure Status: Acute (11) Seizure Status: Acute (12) Severe anemia Status: Acute (13) Sinusitis Status: Acute (14) Skin lesion of scalp Status: Acute (15) Vertigo Status: Acute (16) Vomiting Status: Acute (17) Weakness Status: Acute Review of Systems Constitutional: No fever Respiratory: No cough, No shortness of breath Cardiac: No chest pain Abdomen: No pain Male : No dysuria Objective Vital Signs Date Time Temp Pulse Resp B/P (MAP) Pulse Ox O2 Delivery O2 Flow Rate FiO2 10/16/17 19:38 36.7 86 20 156/97 (116) 93 Room Air 10/16/17 19:21 62 20 95 Room Air 10/16/17 16:00 35.6 73 18 131/83 (99) 97 10/16/17 16:00 Room Air 10/16/17 15:43 61 18 95 Room Air 10/16/17 13:56 70 96 10/16/17 12:00 Room Air 10/16/17 11:46 36.9 59 18 130/70 (90) 96 10/16/17 11:18 61 18 95 Room Air 10/16/17 08:00 Room Air 10/16/17 07:37 36.9 84 18 149/74 (99) 95 10/16/17 07:25 73 18 95 Room Air 10/16/17 04:00 99 Nasal Cannula 2.0 10/16/17 03:37 36.4 72 20 156/89 (111) 99 Nasal Cannula 2.0 10/16/17 00:00 Nasal Cannula 95.0 10/15/17 23:42 36.4 64 21 146/79 (101) 98 Nasal Cannula 2.0 10/15/17 20:00 36.4 65 20 120/73 (89) 95 2.0 10/15/17 20:00 Nasal Cannula 95.0 Physical Exam General Appearance: no apparent distress, + pertinent finding (thought processes disconnected, speech slightly slurry but not aphasic) ENT: pharynx normal Neck: no JVD Respiratory/Chest: lungs clear, no respiratory distress, no accessory muscle use Cardiovascular: regular rate, rhythm, no gallop, no murmur Abdomen: normal bowel sounds, non tender, soft, no organomegaly Extremities: no pedal edema Neurologic/Psychiatric: no motor/sensory deficits (strength 5/5 x 4 exts; no facial droop ), alert, + disoriented (mild) Skin: + pertinent finding (large scars on scalp; no signs of head trauma (no bruises, etc)) Laboratory Results Last 24 Hours Test 10/16/17 09:10 10/16/17 13:15 Magnesium Level 1.7 mg/dl Bedside Glucose 142 mg/dl Assessment and Plan 87yo male - 1. suspected recurrent seizures - this has occurred despite chronic use of keppra 500mg BID and reported compliance. EEG today w/o seizure focus. MRI brain w/o acute ICH, stroke or other process. Nothing abnormal metabolically on labs. Spoke with Dr. Cristobal today - initial recommendation was to increase keppra to 750mg BID. I did such this am giving him an extra 250mg of keppra this morning. Despite such he had another brief seizure this afternoon. At that time we increased the keppra once again to 1000mg BID, first dose now. If he were to have additional seizures this evening Dr. Cristobal recommends loading him with IV depakote on top of the keppra. He has prn ativan available if needed. It is uncertain why he is having breakthrough seizures. There doesn't appear to be symptoms/signs of infection/meningitis. keppra level was sent this am. 2. encephalopathy - ongoing. Uncertain cause. TSH, B12, B1 all wnl in the last year. Will check ammonia level in am. Blood cx's - /4 bottles + for GPC - likely contamination, but until we know for sure will cover w/ IV vanco to be on safe side. Will repeat the blood cx's x 2 sets today as well. MRI brain w/o stroke or other process. Supportive care. Try to avoid ativan unless he has seizure as the ativan may make the delirium worse. 3. leukopenia - based on the EMR this is chronic. 4. mild elevation in LFTs - he has known gall bladder sludge on prior imaging. Doubt biliary tract disease causing any issue at this time but will simply repeat the LFTs in am. 5. mild hypomagnesemia - doubt contributing to seizures, but will give mag sulfate IV x 1 and repeat mag level in am. 6. h/o dysphagia with aspiration - speech consulted, will need to address w/ family as patient has been noncompliant with thickened liquids. 7. HTN - reasonable control at this time. 8. chronic diastolic CHF - he appears euvolemic on exam despite what the cxr report suggests. 9. pacemaker - consider interrogation; could arrhythmia be contributing to events?? 10. h/o a. fib - cont xarelto. 11. BPH - continue finasteride & flomax. daughter, Soniya, extensively updated by phone #: [phone] she confirms that her father is a DNR; has paperwork stating such and has faxed this to our medical records dept total time today 60 minutes including discussing care w/ daughter, neurology, reviewing old records, etc Continued [facility] stay due to: inadequate po fluid intake, ambulation difficulties , multiple IV medications needed, other (seizures) Discharge planning: [facility] facility
[2017-10-16] MEDS: FINASTERIDE 5 MG TAB PO SCH (20:17)
[2017-10-16] MEDS: RIVAROXABAN 10 MG TAB PO SCH (20:17)
[2017-10-16] MEDS: TAMSULOSIN HCL 0.4 MG CAP PO SCH (20:17)
[2017-10-16] MEDS: ATORVASTATIN 40 MG TAB PO SCH (20:18)
[2017-10-16] MEDS ORDERED: LEVETIRACETAM IV 750 MG in DEXTROSE 5% 100ML 100 ML IV SCH (21:00)
[2017-10-17] VITALS (9 sets, daily range): BP systolic 137–177; BP diastolic 85–93; PULSE 63–89; TEMP 36.2–36.6; O2SAT 94–97
[2017-10-17 01:32] LABS: INFLUENZA A PCR Neg for Influ A (NEG); INFLUENZA B PCR Neg for Influ B (NEG)
[2017-10-17 05:58] LABS: BASO % 0.2 %; BASO ABS # 0.01 K/uL (0-0.2); EOS % 0.6 %; EOS ABS # 0.03 K/uL (0-0.5); HEMATOCRIT 38.4 % (42-52); HEMOGLOBIN 13.1 g/dL (14.0-18.0); LYMPH % 9.2 %; MEAN CELL VOLUME 90.6 fL (80-100); MEAN CORPUSCULAR HEMOGLOBIN 30.9 pg (25-34); MEAN CORPUSCULAR HGB CONC 34.1 g/dl (32-36); MEAN PLATELET VOLUME 9.6 fL (7.4-10.4); MONO % 10.1 %; MONO ABS # 0.55 K/uL (0.11-0.59); NEUT % 79.9 %; NEUT ABS # 4.33 K/uL (1.4-6.5); PLATELET COUNT 165 K/uL (130-400); RED CELL DISTRIBUTION WIDTH CV 14.3 % (11.5-14.5); RED CELL DISTRIBUTION WIDTH SD 47.5 fL (36.4-46.3); WHITE BLOOD COUNT 5.42 K/uL (4.8-10.8)
[2017-10-17] MEDS ORDERED: VANCOMYCIN IV 1,250 MG in SODIUM CHLORIDE 0.9% 250ML 250 ML IV SCH (06:00)
[2017-10-17 06:28] LABS: ALBUMIN 3.6 gm/dl (3.4-5.0); CALCIUM 9.1 mg/dl (8.5-10.1); CREATININE 0.95 mg/dl (0.60-1.40); POTASSIUM 3.8 mmol/L (3.5-5.1)
[2017-10-17] MEDS: ALBUT/IPRATROP 3MG/0.5MG NEB 3 ML VIAL INH SCH ×4 (07:08→19:00)
[2017-10-17] MEDS: DOCUSATE SODIUM 100 MG CAP PO SCH (07:35)
[2017-10-17] MEDS: CETIRIZINE HCL 10 MG TAB PO SCH (07:35)
[2017-10-17] MEDS: PANTOprazole SOD 40 MG TAB PO SCH (07:36)
[2017-10-17] MEDS: FERROUS SULFATE 325 MG TAB PO SCH ×2 (07:36→20:54)
[2017-10-17] MEDS: HYDROCORTISONE HC 2.5% CRM 30GM TUBE EXT SCH ×2 (07:36→20:54)
[2017-10-17] MEDS: LEVETIRACETAM IV 1,000 MG in DEXTROSE 5% 100ML 100 ML IV SCH ×2 (07:36→20:53)
--- NOTE | 2017-10-17 13:27 | Progress Note ---
Subjective Date of Service: Oct 17, 2017. Subjective Pt evaluation today including: conversation w/ patient, physical exam, chart review, lab review, review of inpatient medication list Pain: nothing obvious PO Intake: poor Voiding: galvez catheter in place events of last 24 hours noted had pacer interrogation - good function, 7.5 years of battery life left, and no significant dysrhythmia he is confused during the visit stating that I am Dr. Gabriel and he is at [place] he keeps talking about flags and constantly is pointing at the trevino he denies any specific complaints but it is difficult to have a conversation ROS could not be obtained due to delirium Problem List Medical Problems: (1) Altered mental status Status: Acute (2) Altered mental status Status: Acute (3) Bleeding internal hemorrhoids Status: Acute (4) Constipation Status: Acute (5) Epistaxis Status: Acute (6) Hypoxia Status: Acute (7) Lactic acidosis Status: Acute (8) Obstipation Status: Acute (9) PNA (pneumonia) Status: Acute (10) Respiratory failure Status: Acute (11) Seizure Status: Acute (12) Severe anemia Status: Acute (13) Sinusitis Status: Acute (14) Skin lesion of scalp Status: Acute (15) Vertigo Status: Acute (16) Vomiting Status: Acute (17) Weakness Status: Acute Objective Vital Signs Date Time Temp Pulse Resp B/P (MAP) Pulse Ox O2 Delivery O2 Flow Rate FiO2 10/17/17 12:01 36.6 75 19 137/85 (102) 94 Room Air 10/17/17 12:00 Room Air 10/17/17 08:00 Room Air 10/17/17 07:54 36.6 74 20 157/89 (111) 97 Room Air 10/17/17 07:08 66 20 95 Room Air 10/17/17 04:44 36.5 87 18 177/88 (117) 94 10/17/17 04:00 Room Air 10/16/17 23:59 Room Air 10/16/17 23:54 36.7 82 18 166/91 (116) 94 Room Air 162/76 (104) 10/16/17 20:00 Room Air 10/16/17 19:38 36.7 86 20 156/97 (116) 93 Room Air 10/16/17 19:21 62 20 95 Room Air 10/16/17 16:00 35.6 73 18 131/83 (99) 97 10/16/17 16:00 Room Air 10/16/17 15:43 61 18 95 Room Air 10/16/17 13:56 70 96 Physical Exam General Appearance: no apparent distress, + pertinent finding (delirious, confused, follows commands poorly) ENT: + pertinent finding (MMM; hearing impaired) Neck: no JVD Respiratory/Chest: lungs clear, no respiratory distress, no accessory muscle use Cardiovascular: + pertinent finding (irregular, s1, s2) Abdomen: normal bowel sounds, non tender, soft, no organomegaly Extremities: no pedal edema Neurologic/Psychiatric: no motor/sensory deficits, alert, + disoriented Laboratory Results Last 24 Hours Test 10/17/17 00:24 10/17/17 05:39 Influenza Type A (RT-PCR) Neg for Influ A Influenza Type B (RT-PCR) Neg for Influ B White Blood Count 5.42 K/uL Red Blood Count 4.24 M/uL Hemoglobin 13.1 g/dL Hematocrit 38.4 % Mean Corpuscular Volume 90.6 fL Mean Corpuscular Hemoglobin 30.9 pg Mean Corpuscular Hemoglobin Concent 34.1 g/dl Platelet Count 165 K/uL Mean Platelet Volume 9.6 fL Neutrophils (%) (Auto) 79.9 % Lymphocytes (%) (Auto) 9.2 % Monocytes (%) (Auto) 10.1 % Eosinophils (%) (Auto) 0.6 % Basophils (%) (Auto) 0.2 % Neutrophils # (Auto) 4.33 K/uL Lymphocytes # (Auto) 0.50 K/uL Monocytes # (Auto) 0.55 K/uL Eosinophils # (Auto) 0.03 K/uL Basophils # (Auto) 0.01 K/uL RDW Standard Deviation 47.5 fL RDW Coefficient of Variation 14.3 % Immature Granulocyte % (Auto) 0.0 % Immature Granulocyte # (Auto) 0.00 K/uL Sodium Level 137 mmol/L Potassium Level 3.8 mmol/L Chloride Level 106 mmol/L Carbon Dioxide Level 24 mmol/L Anion Gap 7.0 mmol/L Blood Urea Nitrogen 10 mg/dl Creatinine 0.95 mg/dl Est Creatinine Clear Calc Drug Dose 60.1 ml/min Estimated GFR () 83.1 Estimated GFR (Non- 71.7 BUN/Creatinine Ratio 11.0 Random Glucose 107 mg/dl Calcium Level 9.1 mg/dl Magnesium Level 1.8 mg/dl Total Bilirubin 1.2 mg/dl Aspartate Amino Transf (AST/SGOT) 30 U/L Alanine Aminotransferase (ALT/SGPT) 17 U/L Alkaline Phosphatase 123 U/L Ammonia < 10.0 umol/L Total Protein 7.0 gm/dl Albumin 3.6 gm/dl Globulin 3.4 gm/dl Albumin/Globulin Ratio 1.1 Assessment and Plan 87yo male - 1. recurrent seizures - this has occurred despite chronic use of keppra 500mg BID and reported compliance. EEG yesterday w/o seizure focus. MRI brain w/o acute ICH, stroke or other process. Nothing abnormal metabolically on labs. Keppra increased to 1000mg BID. no seizures since increasing to this level. If he were to have additional seizures Dr. Cristobal recommends loading him with IV depakote on top of the keppra. He has prn ativan available if needed. It is uncertain why he is having breakthrough seizures. There doesn't appear to be symptoms/signs of infection/meningitis. keppra level was sent AM of 10/16/17. 2. encephalopathy - ongoing. Uncertain cause. TSH, B12, B1 all wnl in the last year. Ammonia level wnl. Blood cx's - 06/29 bottles + for staph, likely contamination, but until we know for sure will cover w/ IV vanco to be on safe side. Repeat blood cx's x 2 sets still negative (these were obtained BEFORE vanco was started). MRI brain w/o stroke or other process. Supportive care. Try to avoid ativan unless he has seizure as the ativan may make the delirium worse. Repeat cxr today to ensure no pneumonia as cause of delirium. KUB x-ray to r/o impaction as fecal impaction can cause delirium. If nothing found the recurrent seizures is the likely cause of the delirium. 3. leukopenia - based on the EMR this is chronic. Stable today. 4. mild elevation in LFTs - he has known gall bladder sludge on prior imaging. Doubt biliary tract disease causing any issue at this time. LFTs stable and no GI symptoms. 5. mild hypomagnesemia - doubt contributed to seizures; resolved. 6. h/o dysphagia with aspiration - speech consulted, will need to address w/ family as patient has been noncompliant with thickened liquids. 7. HTN - reasonable control at this time. 8. chronic diastolic CHF - he appears euvolemic on exam. 9. pacemaker - s/p interrogation; normal function. 10. h/o a. fib - cont xarelto. 11. BPH - continue finasteride & flomax. daughter, Soniya, extensively updated by phone on 10/16/17 #: [phone] she confirms that her father is a DNR will update her again today Continued [facility] stay due to: inadequate po fluid intake, ambulation difficulties , multiple IV medications needed, other (seizures and delirium ) [facility]
--- NOTE | 2017-10-17 14:16 | DIAGNOSTIC IMAGING REPORT ---
CHEST ONE VIEW PORTABLE HISTORY: recent abnormal cxr, delirium; eval for pneumonia COMPARISON: Chest 10/15/2017. FINDINGS: No pleural effusions. No pneumothorax. The heart remains enlarged. Left-sided single lead pacemaker. Mild central pulmonary vascular congestion without overt edema. Patchy densities at the left lung base persist. IMPRESSION: 1. Cardiomegaly with mild pulmonary vascular congestion. This is similar to the prior study. 2. Patchy densities at the left lung base also persists. This may represent atelectasis or pneumonia. Electronically signed by: Mahamed Romo M.D. 10/17/2017 2:15 PM Dictated Date/Time: 10/17/2017 2:12 PM
--- NOTE | 2017-10-17 14:16 | DIAGNOSTIC IMAGING REPORT ---
ANGEL CLINICAL HISTORY: delirium, eval for fecal impaction pain COMPARISON STUDY: 04/14/2017 FINDINGS: Moderate fecal impaction. Nonobstructive bowel pattern. IMPRESSION: Moderate fecal impaction. The above report was generated using voice recognition software. It may contain grammatical, syntax or spelling errors. Electronically signed by: Bereket Cho M.D. 10/17/2017 2:14 PM Dictated Date/Time: 10/17/2017 2:14 PM
[2017-10-17] MEDS ORDERED: SOAP SUDS ENEMA PR ONE (16:00)
[2017-10-17] MEDS: VANCOMYCIN IV 1,000 MG in SODIUM CHLORIDE 0.9% 250ML 250 ML IV SCH (20:53)
[2017-10-17] MEDS: FINASTERIDE 5 MG TAB PO SCH (20:54)
[2017-10-17] MEDS: ATORVASTATIN 40 MG TAB PO SCH (20:54)
[2017-10-17] MEDS: TAMSULOSIN HCL 0.4 MG CAP PO SCH (20:54)
[2017-10-17] MEDS: RIVAROXABAN 10 MG TAB PO SCH (20:54)
[2017-10-18] VITALS (10 sets, daily range): BP systolic 113–158; BP diastolic 68–95; PULSE 60–84; TEMP 36.5–37.1; O2SAT 92–96
[2017-10-18] MEDS ORDERED: VANCOMYCIN TROUGH ONE ×2 (05:30→10:30)
[2017-10-18 06:12] LABS: CREATININE 1.1 mg/dl (0.60-1.40)
[2017-10-18] MEDS: ALBUT/IPRATROP 3MG/0.5MG NEB 3 ML VIAL INH SCH ×4 (06:55→19:34)
[2017-10-18] MEDS: SODIUM CHLORIDE 0.9% 1000ML 1,000 ML IV SCH ×2 (07:58→09:51)
[2017-10-18] MEDS: FERROUS SULFATE 325 MG TAB PO SCH ×2 (07:59→21:55)
[2017-10-18] MEDS: CETIRIZINE HCL 10 MG TAB PO SCH (07:59)
[2017-10-18] MEDS: DOCUSATE SODIUM 100 MG CAP PO SCH (07:59)
[2017-10-18] MEDS: PANTOprazole SOD 40 MG TAB PO SCH (07:59)
[2017-10-18] MEDS: HYDROCORTISONE HC 2.5% CRM 30GM TUBE EXT SCH ×2 (07:59→21:55)
[2017-10-18] MEDS: LEVETIRACETAM IV 1,000 MG in DEXTROSE 5% 100ML 100 ML IV SCH ×2 (08:29→21:54)
--- NOTE | 2017-10-18 09:13 | DIAGNOSTIC IMAGING REPORT ---
CHEST ONE VIEW PORTABLE HISTORY: Abnormal chest x-ray. Follow-up pneumonia. COMPARISON: Chest 10/17/2017. FINDINGS: Progressive airspace opacification within the left mid to lower lung zone. This is consistent with a worsening pneumonia. No pneumothorax. No pleural effusions. The heart remains enlarged. Left-sided dual-chamber pacemaker. The right lung is clear. IMPRESSION: 1. Progressive airspace opacity within the left mid to lower lung zone. This is consistent with a pneumonia. Recommend one month chest x-ray follow-up to ensure resolution. 2. Stable cardiomegaly. Electronically signed by: Mahamed Romo M.D. 10/18/2017 9:12 AM Dictated Date/Time: 10/18/2017 9:11 AM
--- NOTE | 2017-10-18 09:46 | Progress Note ---
Subjective Date of Service: Oct 18, 2017. Subjective Pt evaluation today including: conversation w/ patient, physical exam, chart review, lab review, review of studies (cxr) Pain: denies PO Intake: very poor and concern from staff about aspiration Voiding: galvez catheter in place patient with ongoing confusion speech difficult to understand but he does follow commands and try to answer questions staff note worsening cough staff concerned about aspiration with trying to take meds no obvious seizures tele stable overnight had good results with enema yesterday unable to obtain ROS due to altered MS Problem List Medical Problems: (1) Altered mental status Status: Acute (2) Altered mental status Status: Acute (3) Bleeding internal hemorrhoids Status: Acute (4) Constipation Status: Acute (5) Epistaxis Status: Acute (6) Hypoxia Status: Acute (7) Lactic acidosis Status: Acute (8) Obstipation Status: Acute (9) PNA (pneumonia) Status: Acute (10) Respiratory failure Status: Acute (11) Seizure Status: Acute (12) Severe anemia Status: Acute (13) Sinusitis Status: Acute (14) Skin lesion of scalp Status: Acute (15) Vertigo Status: Acute (16) Vomiting Status: Acute (17) Weakness Status: Acute Objective Vital Signs Date Time Temp Pulse Resp B/P (MAP) Pulse Ox O2 Delivery O2 Flow Rate FiO2 10/18/17 08:10 37.0 74 22 158/95 (116) 94 10/18/17 08:00 Room Air 10/18/17 06:55 65 20 92 Room Air 10/18/17 04:00 Room Air 10/18/17 03:29 36.5 70 17 144/78 (100) 92 Room Air 10/17/17 23:59 Room Air 10/17/17 23:50 36.2 78 18 144/91 (108) 95 Room Air 10/17/17 20:00 Room Air 10/17/17 19:30 36.4 78 20 142/90 (107) 95 Room Air 10/17/17 19:00 89 20 95 Room Air 10/17/17 16:00 Room Air 10/17/17 15:38 36.3 63 18 156/93 (114) 96 Room Air 10/17/17 15:05 70 20 96 Room Air 10/17/17 12:01 36.6 75 19 137/85 (102) 94 Room Air 10/17/17 12:00 Room Air Physical Exam General Appearance: no apparent distress, + pertinent finding (coughing, confused, speech is garbled) ENT: + pertinent finding (MM dry) Neck: no JVD Respiratory/Chest: no respiratory distress, no accessory muscle use, + rales ( LLL - worse than yesterday; rest of lung exam is normal) Cardiovascular: regular rate, rhythm, no gallop, + systolic murmur (2/6 LSB) Abdomen: normal bowel sounds, non tender, soft, no organomegaly Extremities: no pedal edema Neurologic/Psychiatric: + pertinent finding (sleepy, garbled/slurry speech, no facial droop) Laboratory Results Last 24 Hours Test 10/18/17 05:33 Creatinine 1.10 mg/dl Est Creatinine Clear Calc Drug Dose 51.9 ml/min Estimated GFR () 69.6 Estimated GFR (Non- 60.0 Assessment and Plan 87yo male - 1. recurrent seizures - this occurred despite chronic use of keppra 500mg BID and reported compliance. EEG this admission w/o seizure focus. MRI brain w/o acute ICH, stroke or other process. Nothing abnormal metabolically on labs. Keppra increased to 1000mg BID. no seizures since increasing to this level. If he were to have additional seizures Dr. Cristobal recommends loading him with IV depakote on top of the keppra. He has prn ativan available if needed. Keppra level was sent AM of 10/16/17. 2. encephalopathy - ongoing. Suspect 2nd to recent seizures, ativan, and probably the LLL pneumonia. Latter was likely "brewing" over the last few days. cont keppra and supportive care; starting abx for pneumonia. 3. leukopenia - based on the EMR this is chronic. Stable. 4. mild elevation in LFTs - he has known gall bladder sludge on prior imaging. Doubt biliary tract disease causing any issue at this time. LFTs stable and no GI symptoms. 5. mild hypomagnesemia - doubt contributed to seizures; resolved. 6. h/o dysphagia with aspiration - speech consulted; previously he had refused thickeners and daughter confirms he had been working with speech at [employer] hoping to avoid thickeners. Today he is quite encephalopathic and too sleepy to take PO - will make him NPO. 7. HTN - reasonable control at this time. 8. chronic diastolic CHF - he appears euvolemic on exam. 9. pacemaker - s/p interrogation; normal function. 10. h/o a. fib - cont xarelto. 11. BPH - continue finasteride & flomax. 12. LLL pneumonia - cxr with clear LLL pneumonia and exam c/w such. I believe that this is contributing heavily to his altered MS. Suspect this is aspiration. He lives in [facility] (personal care). Will treat aspiration with unasyn q6h. Add doxy for atypical coverage (won't use zithromax due to potential for qtc prolongation). if any worsening then broaden the unasyn. Already on vanco for +blood cx. 13. +blood culture - suspect contamination as there are only 1/4 bottles + for the staph (and it appears it is 2 pathogens in same bottle). other blood cx's drawn BEFORE vanco are also negative making it likely to be contaminant. can likely stop vanco once full ID of staph species is available daughter, Soniya, extensively updated by phone on 10/16/17 and 10/17/17 #: [phone] she confirms that her father is a DNR will update her again today Continued [facility] stay due to: inadequate po fluid intake, ambulation difficulties , multiple IV medications needed, other (seizures and delirium ) Discharge planning: [facility] facility
[2017-10-18] MEDS: AMPICILLIN/SULBACTAM SOD INJ 3,000 MG in SODIUM CHLORIDE 0.9% 100ML 100 ML IV SCH ×3 (09:51→22:14)
[2017-10-18] MEDS: VANCOMYCIN IV 1,000 MG in SODIUM CHLORIDE 0.9% 250ML 250 ML IV SCH (11:02)
--- NOTE | 2017-10-18 12:27 | Pharmacy Progress Note ---
Pharmacy Abx Dose Short Note Date of Service Oct 18, 2017. Assessment & Plan Assessment 87 year old male receiving vancomycin for treatment of bacteremia. Day # 3 of antimicrobial therapy. As per progress note from Dr. Cloud, empiric therapy extended for now pending further culture results. Staph species being identified. Blood cultures from 10/16 remain NGTD. Pt also ordered Unasyn and doxycycline for treatment of aspiration pneumonia today. Plan Vancomycin * Trough level of 11.6 mcg/mL is subtherapeutic. * Would expect trough to rise given slight rise in Scr and level being prior to steady state. * Will order additional trough level if therapy extended. * Continue dose of 1000 mg IV every 14 hours * Goal trough level for bacteremia: 15 to 20 mcg/mL Pharmacy will continue to follow and will adjust dose/frequency as necessary. Thank you.
[2017-10-18] MEDS: DOXYCYCLINE IV 100 MG in DEXTROSE 5% 100ML 100 ML IV SCH ×2 (13:04→23:26)
[2017-10-18] MEDS: ATORVASTATIN 40 MG TAB PO SCH (21:55)
[2017-10-18] MEDS: RIVAROXABAN 10 MG TAB PO SCH (21:56)
[2017-10-18] MEDS: FINASTERIDE 5 MG TAB PO SCH (21:56)
[2017-10-18] MEDS: TAMSULOSIN HCL 0.4 MG CAP PO SCH (21:56)
[2017-10-19] VITALS (9 sets, daily range): BP systolic 108–128; BP diastolic 59–83; PULSE 59–72; TEMP 36.4–37.1; O2SAT 91–100
[2017-10-19] MEDS: VANCOMYCIN IV 1,000 MG in SODIUM CHLORIDE 0.9% 250ML 250 ML IV SCH (01:31)
[2017-10-19] MEDS: AMPICILLIN/SULBACTAM SOD INJ 3,000 MG in SODIUM CHLORIDE 0.9% 100ML 100 ML IV SCH ×4 (04:23→22:31)
[2017-10-19] MEDS: SODIUM CHLORIDE 0.9% 1000ML 1,000 ML IV SCH (04:23)
[2017-10-19] MEDS: ALBUT/IPRATROP 3MG/0.5MG NEB 3 ML VIAL INH SCH ×4 (07:03→18:54)
[2017-10-19 07:11] LABS: CREATININE 0.81 mg/dl (0.60-1.40)
[2017-10-19] MEDS: LEVETIRACETAM IV 1,000 MG in DEXTROSE 5% 100ML 100 ML IV SCH ×2 (08:22→21:14)
[2017-10-19] MEDS: DOCUSATE SODIUM 100 MG CAP PO SCH (08:23)
[2017-10-19] MEDS: FERROUS SULFATE 325 MG TAB PO SCH ×2 (08:23→21:15)
[2017-10-19] MEDS: PANTOprazole SOD 40 MG TAB PO SCH (08:23)
[2017-10-19] MEDS: HYDROCORTISONE HC 2.5% CRM 30GM TUBE EXT SCH ×2 (08:23→21:00)
[2017-10-19] MEDS: CETIRIZINE HCL 10 MG TAB PO SCH (08:24)
[2017-10-19 09:42] LABS: CALCIUM 8.4 mg/dl (8.5-10.1); CREATININE 0.81 mg/dl (0.60-1.40); POTASSIUM 3.1 mmol/L (3.5-5.1)
[2017-10-19] MEDS: DOXYCYCLINE IV 100 MG in DEXTROSE 5% 100ML 100 ML IV SCH ×2 (11:46→23:46)
[2017-10-19] MEDS: RIVAROXABAN 10 MG TAB PO SCH (21:14)
[2017-10-19] MEDS: TAMSULOSIN HCL 0.4 MG CAP PO SCH (21:14)
[2017-10-19] MEDS: FINASTERIDE 5 MG TAB PO SCH (21:14)
[2017-10-19] MEDS: ATORVASTATIN 40 MG TAB PO SCH (21:15)
[2017-10-19] MEDS ORDERED: POTASSIUM CHLORIDE 20 MEQ/15 ML UDC PO STA (22:47)
--- NOTE | 2017-10-19 23:01 | Progress Note ---
Subjective Date of Service: Oct 19, 2017. Subjective Pt evaluation today including: conversation w/ patient, physical exam, chart review, lab review, review of inpatient medication list Pain: none PO Intake: appetite decent today Voiding: galvez catheter in place tele overnight - pacing patient very awake, alert, and oriented and in good spirits speech fluent and clear feeling "very good" he voices understanding that he came to the hospital because of confusion and that he has had seizures he understands that he has a left sided pneumonia Problem List Medical Problems: (1) Altered mental status Status: Acute (2) Altered mental status Status: Acute (3) Bleeding internal hemorrhoids Status: Acute (4) Constipation Status: Acute (5) Epistaxis Status: Acute (6) Hypoxia Status: Acute (7) Lactic acidosis Status: Acute (8) Obstipation Status: Acute (9) PNA (pneumonia) Status: Acute (10) Respiratory failure Status: Acute (11) Seizure Status: Acute (12) Severe anemia Status: Acute (13) Sinusitis Status: Acute (14) Skin lesion of scalp Status: Acute (15) Vertigo Status: Acute (16) Vomiting Status: Acute (17) Weakness Status: Acute Review of Systems Constitutional: No fever Respiratory: + cough (minimal ), No shortness of breath Cardiac: No chest pain Abdomen: No pain Objective Vital Signs Date Time Temp Pulse Resp B/P (MAP) Pulse Ox O2 Delivery O2 Flow Rate FiO2 10/19/17 20:00 Room Air 10/19/17 19:59 36.4 70 20 108/62 (77) 100 Room Air 10/19/17 18:55 70 18 95 Room Air 10/19/17 16:03 36.6 62 18 126/83 (97) 93 Room Air 10/19/17 16:00 Room Air 10/19/17 15:05 60 18 93 Room Air 10/19/17 12:00 Room Air 10/19/17 11:25 36.9 59 16 109/59 (76) 95 10/19/17 08:00 Room Air 10/19/17 07:49 37.1 72 18 128/63 (84) 96 10/19/17 07:04 60 18 91 Room Air 10/19/17 06:54 36.6 64 20 116/60 (78) 95 Room Air 10/19/17 04:00 Room Air 10/18/17 23:59 Room Air 10/18/17 23:36 36.9 60 20 115/68 (84) 95 Room Air Physical Exam General Appearance: no apparent distress, + pertinent finding (looks much better today) ENT: pharynx normal Neck: no JVD Respiratory/Chest: no respiratory distress, no accessory muscle use, + rales ( left base) Cardiovascular: regular rate, rhythm, no gallop, + systolic murmur (1-2/6 LLSB) Abdomen: normal bowel sounds, non tender, soft, no organomegaly Extremities: no pedal edema Neurologic/Psychiatric: no motor/sensory deficits, alert, oriented x 3, + pertinent finding (speech fluent/clear ) Skin: no rash Laboratory Results Last 24 Hours Test 10/19/17 06:07 Sodium Level 139 mmol/L Potassium Level 3.1 mmol/L Chloride Level 110 mmol/L Carbon Dioxide Level 24 mmol/L Anion Gap 5.0 mmol/L Blood Urea Nitrogen 17 mg/dl Creatinine 0.81 mg/dl Est Creatinine Clear Calc Drug Dose 70.5 ml/min Estimated GFR () 92.6 Estimated GFR (Non- 79.9 BUN/Creatinine Ratio 21.3 Random Glucose 80 mg/dl Calcium Level 8.4 mg/dl Assessment and Plan 87yo male - 1. recurrent seizures - this occurred despite chronic use of keppra 500mg BID and reported compliance. EEG this admission w/o seizure focus. MRI brain w/o acute ICH, stroke or other process. Nothing abnormal metabolically on labs. Did seizures occur because of a brewing LLL pneumonia? Keppra increased to 1000mg BID. no seizures since increasing to this level. If he were to have additional seizures Dr. Cristobal recommends loading him with IV depakote on top of the keppra. He has prn ativan available if needed. Keppra level from hospital day #1 - 13.5. Appreciate neurology consultation. Can likely change to PO keppra tomorrow. 2. encephalopathy - markedly improved today. Suspect 2nd to recent seizures, ativan, and probably the LLL pneumonia. Latter was likely "brewing" over the last few days. cont keppra and supportive care. 3. LLL pneumonia - either aspiration vs community-acquired; suspect former. Day #2 of Unasyn (for typicals/anaerobes) and doxycycline (for atypicals). Can likely change to oral abx next 1-2 days. 4. minimal elevation in t. bili & alk phos - has known gall bladder sludge on prior imaging. Doubt biliary tract disease causing any issue at this time. LFTs stable and no GI symptoms. 5. mild hypomagnesemia - doubt contributed to seizures; resolved. 6. h/o dysphagia with aspiration - speech consulted; previously he had refused thickeners and daughter confirms he had been working with speech at [facility] hoping to avoid thickeners. Speech today ordered [facility] soft diet & nectar thick liquids; video swallow planned for 10/20/17. 7. HTN - reasonable control at this time. 8. chronic diastolic CHF - compensated. 9. pacemaker - s/p interrogation; normal function. 10. h/o a. fib - cont xarelto. Tele stable this admission. 11. BPH - continue finasteride & flomax. 12. leukopenia - based on the EMR this is chronic. Stable. CBC in am for stability. 13. +blood culture - suspect contamination as there was only 1/4 bottles positive for the coag neg staph. Other blood cx's drawn BEFORE vanco were also negative making it likely to be contaminant. stop vancomycin. daughter, Soniya, extensively updated by phone on 10/16/17, 10/17/17, 10/18/17 #: [phone] she confirms that her father is a DNR PT, OT lives at [facility] - will need SNF at d/c Continued [facility] stay due to: ambulation difficulties, multiple IV medications needed Discharge planning: half-way facility
[2017-10-20] VITALS (9 sets, daily range): BP systolic 121–140; BP diastolic 75–79; PULSE 60–85; TEMP 36.4–36.5; O2SAT 94–99
[2017-10-20] MEDS: AMPICILLIN/SULBACTAM SOD INJ 3,000 MG in SODIUM CHLORIDE 0.9% 100ML 100 ML IV SCH ×2 (04:15→10:29)
[2017-10-20 05:59] LABS: HEMATOCRIT 33.2 % (42-52); HEMOGLOBIN 11.2 g/dL (14.0-18.0); MEAN CORPUSCULAR HEMOGLOBIN 30.4 pg (25-34); MEAN CORPUSCULAR HGB CONC 33.7 g/dl (32-36); MEAN PLATELET VOLUME 9.1 fL (7.4-10.4); PLATELET COUNT 118 K/uL (130-400); RED CELL DISTRIBUTION WIDTH CV 14.1 % (11.5-14.5); RED CELL DISTRIBUTION WIDTH SD 46.6 fL (36.4-46.3); WHITE BLOOD COUNT 4.47 K/uL (4.8-10.8)
[2017-10-20 06:17] LABS: CALCIUM 7.7 mg/dl (8.5-10.1); CREATININE 0.92 mg/dl (0.60-1.40); POTASSIUM 3.5 mmol/L (3.5-5.1)
[2017-10-20] MEDS: ALBUT/IPRATROP 3MG/0.5MG NEB 3 ML VIAL INH SCH ×3 (06:55→15:06)
[2017-10-20] MEDS: FERROUS SULFATE 325 MG TAB PO SCH (08:02)
[2017-10-20] MEDS: PANTOprazole SOD 40 MG TAB PO SCH (08:02)
[2017-10-20] MEDS: LEVETIRACETAM IV 1,000 MG in DEXTROSE 5% 100ML 100 ML IV SCH (08:02)
[2017-10-20] MEDS: CETIRIZINE HCL 10 MG TAB PO SCH (08:02)
[2017-10-20] MEDS: DOCUSATE SODIUM 100 MG CAP PO SCH (08:02)
[2017-10-20] MEDS: HYDROCORTISONE HC 2.5% CRM 30GM TUBE EXT SCH (09:00)
[2017-10-20] MEDS: MAGNESIUM SULFATE 1GM / D5W 100 ML IV SCH ×2 (09:22→10:29)
[2017-10-20] MEDS: DOXYCYCLINE IV 100 MG in DEXTROSE 5% 100ML 100 ML IV SCH (12:20)
--- NOTE | 2017-10-20 13:50 | DIAGNOSTIC IMAGING REPORT ---
VIDEO SWALLOW CLINICAL HISTORY: 87 years-old Male with assess for aspiration, please schedule per order. Acute cough with concern for aspiration. TECHNIQUE: Video fluoroscopic evaluation of swallowing was performed in the AP and lateral projections by the speech pathology staff. The patient is fed nectar-thick and thin liquid barium, a barium coated wafer, and barium pudding. FLUOROSCOPY TIME: 2.7 minutes. 779 images were submitted. COMPARISON STUDY: Video swallow 06/15/2017. FINDINGS: There is penetration without aspiration seen within the swallow thin liquid barium. Serial swallowing with thin liquid barium demonstrates mild aspiration, clear with coughing. Swallowing function is otherwise within normal limits. Esophageal dysmotility noted with nectar thick and pudding consistencies. Zenker diverticulum is partially imaged. Pacer wire is partially imaged. Atherosclerosis of the aorta. Multilevel degenerative changes about the cervical spine. IMPRESSION: 1. Aspiration with thin liquid barium. 2. Esophageal dysmotility. 3. Partially imaged Zenker's diverticulum. 4. Please see the speech pathology report for recommendations. Electronically signed by: Efrem Paredes M.D. 10/20/2017 1:49 PM Dictated Date/Time: 10/20/2017 1:45 PM
[2017-10-20] MEDS ORDERED: AMOX1TAB43 PO (14:53)
[2017-10-20] MEDS ORDERED: LEVE500T13 PO (14:53)
[2017-10-20] MEDS ORDERED: DXY100 PO (14:53)
--- NOTE | 2017-10-20 15:08 | Discharge Instructions ---
Discharge Instructions Date of Service Oct 20, 2017. Admission Reason for Admission: Seizure, Acute encephalopathy Discharge Discharge Diagnosis / Problem: Seizure,Acute encephalopathy, Pneumonia Discharge Goals Goal(s): Improve disease control, Diagnostic testing, Therapeutic intervention Activity Recommendations Activity Level: Assistance Required Therapies: Physical Therapy, Occupational Therapy, Speech Therapy Shower/Bathe: no limitations . Additional Information Patient informed of condition: Yes Advance Directives: No DNR: Yes Level of Care: Skilled Communicable Disease: No Prognosis: Improving Schmitt Catheter: No Instructions / Follow-Up Instructions / Follow-Up This patient is an 87 yo male with a h/o recurrent aspiration PNA, Zenker's diverticulum s/p myotomy, seizure disorder, HTN, chronic diastolic CHF, pacemaker in situ, BPH,GERD, dyslipidemia, previous PEG tube, chronic AFib currently on Xarelto, and ascending aortic aneurysm or dilatation who presented to the ER with altered mental status, and then had a grand mal seizure witnessed in the ER. The medical information was obtained from ED physician, patient, and patient's family. Per report, patient is a resident in assisted living , [facility] , reportedly complained about double vision for several days. He was found to have an elevated blood glucose >200 in [facility]. Per report, has been confused for several days. Feeling lightheaded and dizziness. In the Emergency Room, initially comprehensive evaluation included CBC, BMP, head CT studies. TSH and chest x-rays were unremarkable. Later, patient had one episode of grand mal seizure in the Emergency Room, which lasted about 3-5 minutes associated with salivary dripping , witnessed by RN. Patient got 1 dose of Ativan and gradually recovered. Recurrent seizures - this occurred despite chronic use of keppra 500mg BID and reported compliance. EEG this admission w/o seizure focus. MRI brain w/o acute ICH, stroke or other process. Nothing abnormal metabolically on labs. Likely seizures occurred because of a brewing LLL pneumonia. No further seizures with increasing Keppra dose and treating the PNA. Keppra increased to 1000mg BID. Follow up with Neurology within 2 weeks after discharge. Keppra level from hospital day #1 - 13.5. Acute metabolic encephalopathy - resolved after starting antibiotics for PNA. Suspect 2nd to recent seizures, ativan, and probably the LLL pneumonia. Latter was likely "brewing" over the last few days. cont keppra and supportive care. LLL pneumonia/h/o dysphagia with aspiration - either aspiration vs community- acquired; suspect former. Video swallow with aspiration of thin liquids and partial imaging of Zenkers which was previously operated on in 05/2017 which resulted in almost complete resolution of all aspiration. Received 3 days of Unasyn (for typicals/anaerobes) and doxycycline (for atypicals). Will change to oral abx of Augmentin and doxy today for 6 more days. Follow CXR to resolution in 4 weeks. Continue Speech therapy recommendations, no straws. Minimal elevation in t. bili & alk phos - has known gall bladder sludge on prior imaging. Doubt biliary tract disease causing any issue at this time. LFTs stable and no GI symptoms. Mild hypomagnesemia - doubt contributed to seizures; resolved after replacement HTN - reasonable control at this time. Chronic diastolic CHF - compensated. Pacemaker - s/p interrogation; normal function. H/o a. fib - cont xarelto. Tele stable this admission. BPH - continue finasteride & flomax. leukopenia - based on the EMR this is chronic. Stable. CBC in am for stability. +blood culture - suspect contamination as there was only 1/4 bottles positive for the coag neg staph. Other blood cx's drawn BEFORE vanco were also negative making it likely to be contaminant. stop vancomycin. Repeat BCx negative after 4 days DNR PT, OT and discharge to SNF today Current Hospital Diet Patient's current hospital diet: AHA Diet (Heart Healthy) Discharge Diet Recommended Diet: AHA Diet (Heart Healthy) Procedures Procedures Performed: Video Swallow Chest xrays KUB Brain MRI CT Head Pending Studies Studies pending at discharge: yes List of pending studies: Final repeat BCxs Physician Orders On Transfer Special Precautions: Fall and seizure precautions Vital Signs: Daily Weigh: Routine Additional Orders: Follow up with Neurology within 2 weeks POLST Discussion: without POLST completion Laboratory Results Last 24 Hours Test 10/20/17 05:44 White Blood Count 4.47 K/uL Red Blood Count 3.69 M/uL Hemoglobin 11.2 g/dL Hematocrit 33.2 % Mean Corpuscular Volume 90.0 fL Mean Corpuscular Hemoglobin 30.4 pg Mean Corpuscular Hemoglobin Concent 33.7 g/dl RDW Standard Deviation 46.6 fL RDW Coefficient of Variation 14.1 % Platelet Count 118 K/uL Mean Platelet Volume 9.1 fL Sodium Level 138 mmol/L Potassium Level 3.5 mmol/L Chloride Level 109 mmol/L Carbon Dioxide Level 22 mmol/L Anion Gap 8.0 mmol/L Blood Urea Nitrogen 16 mg/dl Creatinine 0.92 mg/dl Est Creatinine Clear Calc Drug Dose 62.1 ml/min Estimated GFR () 86.4 Estimated GFR (Non- 74.5 BUN/Creatinine Ratio 17.9 Random Glucose 77 mg/dl Calcium Level 7.7 mg/dl Magnesium Level 1.4 mg/dl Medical Emergencies . Who to Call and When: Medical Emergencies: If at any time you feel your situation is an emergency, please call 911 immediately. . Non-Emergent Contact Non-Emergency issues call your: Primary Care Provider Call Non-Emergent contact if: temperature is above 100.5, you have any medication questions . . "Provider Documentation" section prepared by Aneta Dela Cruz. . Core Measure Problem Core Measures: None
--- NOTE | 2017-10-20 15:16 | Discharge Summary ---
Discharge Summary Date of Service Oct 20, 2017. Discharge Summary Admission Date: Oct 15, 2017 at 18:40 Discharge Date: Oct 20, 2017 Discharge Disposition: [facility] facility Principal Diagnosis: Acute metabolic encephalopathy, seizure,Pneumonia Problems/Secondary Diagnoses: H/o recurrent aspiration PNA Silent aspiration Zenker's diverticulum s/p myotomy Seizure disorder HTN Chronic diastolic CHF Pacemaker in situ BPH GERD, Dyslipidemia Previous PEG tube Chronic AFib currently on Xarelto Ascending aortic aneurysm 5 cm Minimal elevation in t. bili & alk phos Hypomagnesemia Leukopenia Positive blood culture - contamination Procedures: CT Head Brain MRI CXR KUB Video Swallow Consultations: Neurology Medication Reconciliation New Medications: Amoxicillin & Pot Clavulanate (Amoxicillin/Clavulanate P) 1 Tab Tab 875 MG PO BIDM for 6 Days, #12 TAB Doxycycline Hyclate (Doxycycline Hyclate) 100 Mg Cap 100 MG PO BID for 6 Days, #12 CAP Changed Medications: Levetiracetam (Keppra) 500 Mg Tab 1000 MG PO BID for 30 Days (Changed from: 500 MG) Continued Medications: Acetaminophen (Tylenol) 650 Mg Supp 650 MG PO Q4H PRN for Pain or Fever NTE 3GM APAP/24HRS Acetaminophen (Mapap) 160 Mg/5 Ml Soln 650 MG PO Q4H PRN for Pain or Fever NTE 3GM APAP/24HRS Artificial Tear Solution (Artificial Tears) 1 Martha Martha 3 DROPS OPB Q2H PRN for DRY EYES Atorvastatin (Lipitor) 40 Mg Tab 40 MG PO QPM, TAB Bisacodyl (Dulcolax) 10 Mg Sup 1 SUPP WY Q48HRS PRN for Constipation, SUP GIVE IF NO RESULTS FROM MILK OF MAG. Cetirizine (Zyrtec) 10 Mg Tab 10 MG PO QAM Docusate Sodium (Docusate Sodium) 100 Mg Cap 100 MG PO QAM Ferrous Sulfate (Kp Ferrous Sulfate) 325 Mg Tab 325 MG PO BID Finasteride (Proscar) 5 Mg Tab 5 MG PO QPM, TAB Hydrocortisone 2.5% (Rectal) (Anusol-Hc 2.5%) 2.5 % Cre 1 APPLN TOP BID Ipratropium-Albuterol (Duoneb) 3 Ml Nebu 1 TREATMENT INH QID PRN for Wheezing MDD E Magnesium Gluconate (Mag-G) 500 Mg Tab 500 MG PO QAM Magnesium Hydroxide (Milk of Magnesia) 30 Ml Susp 30 ML PO Q48H PRN for Constipation Pantoprazole (Protonix) 40 Mg Tab 40 MG PO QAM Polyethylene Glycol 3350 (Miralax) 1 Pow Pow 17 GM PO BID PRN for Constipation, #255 GM Potassium Chloride (Potassium Chloride) 20 Meq Soln 20 ML PO QAM Rivaroxaban (Xarelto) 20 Mg Tab 20 MG PO HS, TAB Sodium Phosphate/Biphosphate (Fleet Enema) Courtney 1 EA W[place] Q72H PRN for Constipation, BTL Soft Lens Products (Saline Solution) 1 Martha Martha 3 DROPS OPB Q2H PRN for EYE IRRITATION Tamsulosin Hcl (Flomax) 0.4 Mg Cap 0.4 MG PO HS, CAP Discharge Exam Feeling great. Kia po, no N/V, no CP or SOB. Moving bowels, making urine. Video swallow showed some silent aspiration, but able to have thin liquids but no straws. Afebrile, Tele with paced rhythm and some A-fib, rates in the 60s. Review of Systems: Constitutional: No problem reported Eyes: No problem reported ENT: No problem reported Respiratory: No problem reported Cardiovascular: No problem reported Abdomen: No problem reported Musculoskeletal: No problem reported Genitourinary - Male: No problem reported Neurologic: No problem reported Psychiatric: No problem reported Endocrine: No problem reported Hematologic / Lymphatic: No problem reported Integumentary: No problem reported Physical Exam: General Appearance: WD/WN, no apparent distress Eyes: normal inspection, EOMI, sclerae normal ENT: hearing grossly normal, pharynx normal Neck: trachea midline Respiratory/Chest: no respiratory distress, no accessory muscle use, + crackles (at left base) Cardiovascular: regular rate, rhythm, no edema, no gallop, no murmur Abdomen / GI: normal bowel sounds, non tender, soft, no organomegaly Extremities: no pedal edema, normal range of motion Neurologic/Psychiatric: alert, normal mood/affect, oriented x 3 Skin: normal color, warm/dry, no rash Hospital Course This patient is an 87 yo male with a h/o recurrent aspiration PNA, Zenker's diverticulum s/p myotomy, seizure disorder, HTN, chronic diastolic CHF, pacemaker in situ, BPH,GERD, dyslipidemia, previous PEG tube, chronic AFib currently on Xarelto, and ascending aortic aneurysm or dilatation who presented to the ER with altered mental status, and then had a grand mal seizure witnessed in the ER. The medical information was obtained from ED physician, patient, and patient's family. Per report, patient is a resident in assisted living , [facility] , reportedly complained about double vision for several days. He was found to have an elevated blood glucose >200 in [facility]. Per report, has been confused for several days. Feeling lightheaded and dizziness. In the Emergency Room, initially comprehensive evaluation included CBC, BMP, head CT studies. TSH and chest x-rays were unremarkable. Later, patient had one episode of grand mal seizure in the Emergency Room, which lasted about 3-5 minutes associated with salivary dripping , witnessed by RN. Patient got 1 dose of Ativan and gradually recovered. Recurrent seizures - this occurred despite chronic use of keppra 500mg BID and reported compliance. EEG this admission w/o seizure focus. MRI brain w/o acute ICH, stroke or other process. Nothing abnormal metabolically on labs. Likely seizures occurred because of a brewing LLL pneumonia. No further seizures with increasing Keppra dose and treating the PNA. Keppra increased to 1000mg BID. Follow up with Neurology within 2 weeks after discharge. Keppra level from hospital day #1 - 13.5. Acute metabolic encephalopathy - resolved after starting antibiotics for PNA. Suspect 2nd to recent seizures, ativan, and probably the LLL pneumonia. Latter was likely "brewing" over the last few days. cont keppra and supportive care. LLL pneumonia/h/o dysphagia with aspiration - either aspiration vs community- acquired; suspect former. Video swallow with aspiration of thin liquids and partial imaging of Zenkers which was previously operated on in 05/2017 which resulted in almost complete resolution of all aspiration. Received 3 days of Unasyn (for typicals/anaerobes) and doxycycline (for atypicals). Will change to oral abx of Augmentin and doxy today for 6 more days. Follow CXR to resolution in 4 weeks. Continue Speech therapy recommendations, no straws. Minimal elevation in t. bili & alk phos - has known gall bladder sludge on prior imaging. Doubt biliary tract disease causing any issue at this time. LFTs stable and no GI symptoms. Mild hypomagnesemia - doubt contributed to seizures; resolved after replacement HTN - reasonable control at this time. Chronic diastolic CHF - compensated. Pacemaker - s/p interrogation; normal function. H/o a. fib - cont xarelto. Tele stable this admission. BPH - continue finasteride & flomax. leukopenia - based on the EMR this is chronic. Stable. CBC in am for stability. +blood culture - suspect contamination as there was only 1/4 bottles positive for the coag neg staph. Other blood cx's drawn BEFORE vanco were also negative making it likely to be contaminant. stop vancomycin. Repeat BCx negative after 4 days DNR PT, OT and discharge to SNF today Total Time Spent: Greater than 30 minutes This includes examination of the patient, discharge planning, medication reconciliation, and communication with other providers. Discharge Instructions Please refer to the electronic Patient Visit Report (Discharge Instructions) for additional information. Follow-Up with Neuro within 1-2 weeks Additional Copies To Amilcar Cochran M.D.; Wesley Gabriel M.D.
[2017-10-20] MEDS ORDERED: AMOXICILLIN/CLAVULANATE TAB 875 MG TAB PO SCH (16:45)
[2017-10-20] MEDS ORDERED: DOXYCYCLINE HYCLATE 100 MG CAP PO SCH (21:00)
[2017-10-20] MEDS ORDERED: LEVETIRACETAM 500 MG TAB PO SCH (21:00)
== END 2017-10-20 15:54 | DRG 100 ==
LOC: EDBD 14:32 → C.EDB 14:33 → C.2T 18:40 → EDBEDREQ 18:42 → ENRESERV 18:46
PROVIDERS: ADMIT Hospitalist; ATTEND Family Medicine
DX: R56.9 Unspecified convulsions (principal); G93.41 Metabolic encephalopathy; J18.9 Pneumonia, unspecified organism; I50.32 Chronic diastolic (congestive) heart failure; K21.9 Gastro-esophageal reflux disease without esophagitis; I48.2 Chronic atrial fibrillation; E78.5 Hyperlipidemia, unspecified; E83.42 Hypomagnesemia; Z66 Do not resuscitate; I11.0 Hypertensive heart disease with heart failure; D72.819 Decreased white blood cell count, unspecified; N40.0 Benign prostatic hyperplasia without lower urinary tract symptoms; Z95.0 Presence of cardiac pacemaker; Z87.891 Personal history of nicotine dependence; Z80.0 Family history of malignant neoplasm of digestive organs

== ENCOUNTER → 2018-01-11 | Outpatient (CLI) | payer OTHER, BC ==
[~2018-01-11] MED LIST changes: +AMOX1TAB43 PO; +ARTISOL12 OPB; +DOCU100C31 PO; -DOCU5LIQ PEG; +DXY100 PO; +IPRA-64 INH; -IPRASOL4 INH; -NUTRLIQ14 PEG; +SOFT1SOL45 OPB
[2018-01-11 08:39] LABS: HEMATOCRIT 34.2 % (42-52); HEMOGLOBIN 11.4 g/dL (14.0-18.0); MEAN CELL VOLUME 88.4 fL (80-100); MEAN CORPUSCULAR HEMOGLOBIN 29.5 pg (25-34); MEAN CORPUSCULAR HGB CONC 33.3 g/dl (32-36); MEAN PLATELET VOLUME 9.8 fL (7.4-10.4); PLATELET COUNT 145 K/uL (130-400); RED CELL DISTRIBUTION WIDTH CV 14.1 % (11.5-14.5); RED CELL DISTRIBUTION WIDTH SD 45.1 fL (36.4-46.3); WHITE BLOOD COUNT 2.86 K/uL (4.8-10.8)
[2018-01-11 08:47] LABS: BLOOD UREA NITROGEN 13 mg/dl (7-18); CALCIUM 8.4 mg/dl (8.5-10.1); CARBON DIOXIDE 25 mmol/L (21-32); CREATININE 0.71 mg/dl (0.60-1.40); GLUCOSE 79 mg/dl (70-99); POTASSIUM 3.6 mmol/L (3.5-5.1); SODIUM 133 mmol/L (136-145)
== END ==
LOC: C.LABFOXDH 07:59
PROVIDERS: ATTEND Internal Medicine
DX: K22.2 Esophageal obstruction (principal); I48.91 Unspecified atrial fibrillation; I43 Cardiomyopathy in diseases classified elsewhere

== ENCOUNTER → 2018-01-25 | Outpatient (CLI) | payer OTHER, BC ==
[2018-01-25 09:46] LABS: HEMOGLOBIN 11.8 g/dL (14.0-18.0); MEAN CELL VOLUME 88.3 fL (80-100); MEAN CORPUSCULAR HEMOGLOBIN 30.6 pg (25-34); MEAN CORPUSCULAR HGB CONC 34.7 g/dl (32-36); MEAN PLATELET VOLUME 10.1 fL (7.4-10.4); PLATELET COUNT 156 K/uL (130-400); RED CELL DISTRIBUTION WIDTH CV 14.4 % (11.5-14.5); RED CELL DISTRIBUTION WIDTH SD 46.8 fL (36.4-46.3); WHITE BLOOD COUNT 2.79 K/uL (4.8-10.8)
[2018-01-25 09:57] LABS: BLOOD UREA NITROGEN 10 mg/dl (7-18); CALCIUM 8.1 mg/dl (8.5-10.1); CARBON DIOXIDE 25 mmol/L (21-32); CREATININE 0.73 mg/dl (0.60-1.40); GLUCOSE 78 mg/dl (70-99); POTASSIUM 3.8 mmol/L (3.5-5.1); SODIUM 128 mmol/L (136-145)
== END | disposition home or self-care (01) ==
LOC: C.LABFOXDH 09:21
PROVIDERS: ATTEND Internal Medicine
DX: K22.2 Esophageal obstruction (principal); I48.91 Unspecified atrial fibrillation; I43 Cardiomyopathy in diseases classified elsewhere

== ENCOUNTER → 2018-01-27 | Outpatient (CLI) | payer OTHER, BC ==
[2018-01-27 12:48] LABS: BASO % 0.4 %; BASO ABS # 0.01 K/uL (0-0.2); EOS % 2.3 %; EOS ABS # 0.06 K/uL (0-0.5); HEMATOCRIT 34.8 % (42-52); HEMOGLOBIN 11.8 g/dL (14.0-18.0); LYMPH % 12.8 %; LYMPH ABS # 0.34 K/uL (1.2-3.4); MEAN CELL VOLUME 88.1 fL (80-100); MEAN CORPUSCULAR HEMOGLOBIN 29.9 pg (25-34); MEAN CORPUSCULAR HGB CONC 33.9 g/dl (32-36); MEAN PLATELET VOLUME 9.5 fL (7.4-10.4); MONO % 9.1 %; MONO ABS # 0.24 K/uL (0.11-0.59); NEUT % 75.4 %; PLATELET COUNT 154 K/uL (130-400); RED CELL DISTRIBUTION WIDTH CV 14.2 % (11.5-14.5); RED CELL DISTRIBUTION WIDTH SD 46.4 fL (36.4-46.3); WHITE BLOOD COUNT 2.65 K/uL (4.8-10.8)
[2018-01-27 13:15] LABS: ALBUMIN 3.4 gm/dl (3.4-5.0); ALKALINE PHOSPHATASE 132 U/L (45-117); ALT/SGPT 19 U/L (12-78); AST/SGOT 34 U/L (15-37); BLOOD UREA NITROGEN 10 mg/dl (7-18); CALCIUM 8.4 mg/dl (8.5-10.1); CARBON DIOXIDE 26 mmol/L (21-32); CREATININE 0.81 mg/dl (0.60-1.40); GLUCOSE 102 mg/dl (70-99); POTASSIUM 3.9 mmol/L (3.5-5.1); SODIUM 129 mmol/L (136-145); TOTAL PROTEIN 6.1 gm/dl (6.4-8.2)
== END | disposition home or self-care (01) ==
LOC: C.LABFOXDH 12:42
PROVIDERS: ATTEND Nurse Practitioner Family
DX: R41.82 Altered mental status, unspecified (principal)

== ENCOUNTER → 2018-02-08 | Outpatient (CLI) | payer OTHER, BC ==
[2018-02-08 08:11] LABS: HEMATOCRIT 34.5 % (42-52); MEAN CELL VOLUME 88.7 fL (80-100); MEAN CORPUSCULAR HEMOGLOBIN 30.8 pg (25-34); MEAN CORPUSCULAR HGB CONC 34.8 g/dl (32-36); PLATELET COUNT 141 K/uL (130-400); RED CELL DISTRIBUTION WIDTH CV 14.6 % (11.5-14.5); RED CELL DISTRIBUTION WIDTH SD 46.7 fL (36.4-46.3)
[2018-02-08 08:18] LABS: BLOOD UREA NITROGEN 12 mg/dl (7-18); CALCIUM 8.6 mg/dl (8.5-10.1); CARBON DIOXIDE 26 mmol/L (21-32); CREATININE 0.74 mg/dl (0.60-1.40); GLUCOSE 84 mg/dl (70-99); POTASSIUM 3.9 mmol/L (3.5-5.1); SODIUM 131 mmol/L (136-145)
== END ==
LOC: C.LABFOXDH 07:53
PROVIDERS: ATTEND Internal Medicine
DX: K22.2 Esophageal obstruction (principal); I48.91 Unspecified atrial fibrillation; I43 Cardiomyopathy in diseases classified elsewhere

== ENCOUNTER 2019-06-19 16:38 | Inpatient (IN) ==
[2019-06-19 17:16] LABS: Eosinophils # (auto) 0.01 K/uL (0-0.5); Eosinophils % (auto) 0.2 %; Hematocrit (blood only) 39.1 % (42-52); Hemoglobin 13.5 g/dL (14.0-18.0); Immature Granulocytes # (auto) 0.01 K/uL (0.00-0.02); Immature Granulocytes % (auto) 0.2 %; Lymphocytes # (auto) 0.34 K/uL (1.2-3.4); Lymphocytes % (auto) 5.5 %; Mean Corpuscular Hemoglobin 31.3 pg (25-34); Mean Corpuscular Hgb Conc 34.5 g/dL (32-36); Mean Corpuscular Volume 90.5 fL (80-100); Mean Platelet Volume 9.8 fL (7.4-10.4); Monocytes % (auto) 9.8 %; Neutrophils # (auto) 5.19 K/uL (1.4-6.5); Neutrophils % (auto) 84.3 %; Platelet Count 165 K/uL (130-400); RDW Coefficient of Variation 13.9 % (11.5-14.5); RDW Standard Deviation 46.1 fL (36.4-46.3); Red Blood Count 4.32 M/uL (4.7-6.1); White Blood Count 6.15 K/uL (4.8-10.8)
[2019-06-19 17:28] LABS: INR 1.2 (0.9-1.1); Partial Thromboplastin Ratio 0.9; Partial Thromboplastin Time 24.2 Seconds (21.0-31.0)
[2019-06-19 17:35] LABS: Appearance Urine Clear (Clear); Bilirubin Urine Negative (Negative); Blood Urine Negative (Negative); Color Urine Yellow; Glucose Urine UA Negative (Negative); Ketones Urine Negative (Negative); Leukocyte Esterase Urine Negative (Negative); Nitrite Urine Negative (Negative); Protein Urine Negative (Negative); Specific Gravity Urine 1.016 (1.000-1.030); Urobilinogen Urine Negative (Negative); pH Urine 6.5 (4.5-7.5)
[2019-06-19 17:37] LABS: Alanine Aminotransferase 16 U/L (12-78); Albumin Level 3.6 gm/dl (3.4-5.0); Aspartate Aminotransferase 31 U/L (15-37); BUN Creatinine Ratio 13.9 (10-20); Blood Urea Nitrogen 15 mg/dl (7-18); Calcium 8.8 mg/dl (8.5-10.1); Carbon Dioxide 25 mmol/L (21-32); Chloride 99 mmol/L (98-107); Est GFR (African American) 69.4; Est GFR (Non-African American) 59.9; Glucose 117 mg/dl (70-99); Lipase 69 U/L (73-393); Magnesium 1.9 mg/dl (1.8-2.4); Potassium 4.1 mmol/L (3.5-5.1); Sodium 133 mmol/L (136-145)
[2019-06-19 17:41] LABS: Alkaline Phosphatase 106 U/L (45-117); Bilirubin Direct 0.2 mg/dl (0-0.2); Bilirubin,Total 0.7 mg/dl (0.2-1); Creatine Kinase 186 U/L (39-308); Total Protein 6.9 gm/dl (6.4-8.2)
--- NOTE | 2019-06-19 17:55 | CT Scan Report ---
CT OF THE HEAD WITHOUT CONTRAST CLINICAL HISTORY: Seizure. Altered mental status. COMPARISON STUDY: Head CT June 19, 2019 8:46 AM. MRI of the brain October 16, 2017. CT DOSE: 1572.52 mGy.cm TECHNIQUE: Helical axial images of the head were obtained without IV contrast. Automated exposure con trol was utilized for the study. A dose lowering technique was utilized adhering to the principles o f ALARA. FINDINGS: No acute intracranial hemorrhage, midline shift or mass effect is present. Ventricular syst em is stable. The basilar cisterns are patent. There are no extra axial collections. White matter hyp odensities are unchanged and suggest moderate small vessel disease. There are no findings to suggest acute dural sinus thrombosis or acute territorial infarct. There is no calvarial fracture. IMPRESSION: 1. No acute intracranial findings. 2. No calvarial fracture. ACT 112: Negative or not required by law. Electronically signed by: Michael Whatley M.D. 06/19/2019 5:54 PM
[2019-06-19] MEDS ORDERED: SODIUM CHLORIDE 0.9% 1000ML 500 ML IV ONE (17:57)
--- NOTE | 2019-06-19 18:03 | CT Scan Report ---
CT OF THE CHEST WITHOUT IV CONTRAST CLINICAL HISTORY: Altered mental status. Evaluate for pneumonia. COMPARISON STUDY: Chest CT March 13, 2017. Chest radiograph June 19, 2019. CT DOSE: 390.78 mGy.cm TECHNIQUE: Axial images of the chest were obtained without IV contrast. Images were reviewed in the axial, sagittal, and coronal planes. IV contrast was not administered for this examination. Automat ed exposure control was utilized for the study. A dose lowering technique was utilized adhering to t he principles of ALARA. FINDINGS: Dilatation of the ascending aorta, measuring 4.9 cm, is unchanged since CT of February. Heart is moderately enlarged. There is no pericardial effusion. A left subclavian pacer is in place. No pneumothorax is noted. There is no significant pleural effusion. There is no consolidation to suggest pneumonia. Mild bilateral lower lobe and lingular opacities favor atelectasis. There are no suspicious pulmonary nodules. Old right-sided rib fractures are noted. No acute rib or thoracic sp ine fracture is noted. Upper abdomen is unremarkable on this unenhanced exam. There is no thoracic ly mphadenopathy. Mild diffuse bronchial wall thickening is most pronounced within the lower lobes. IMPRESSION: 1. No consolidation to suggest pneumonia. Bilateral lower lobe and lingular opacities suggestive of a telectasis. Mild bilateral lower lobe bronchial wall thickening. 2. Moderate cardiomegaly. Extensive coronary artery calcification. 3. Stable dilatation of the ascending aorta since CT of March 13, 2017, measuring 4.9 cm. ACT 112: Negative or not required by law. Electronically signed by: Michael Whatley M.D. 06/19/2019 6:02 PM
[2019-06-19] MEDS ORDERED: levETIRAcetam 750 MG in DEXTROSE 5% 100 ML IV STA (18:10)
--- NOTE | 2019-06-19 18:38 | Emergency Department Note ---
Entered by Laura Jenkins acting as a scribe for History of Present Illness General Chief complaint: Seizure Stated complaint: SEIZURE Time Seen by Provider: 06/19/19 16:43 Source: patient and other (nurse) Mode of arrival: EMS Limitations: other (dementia) History of Present Illness Provider complaint: Seizure Onset (ago): minute(s) 25 Location: head Severity: similar to prior episodes Pain Consistency: + other (episode) Quality: + other (seizure) Associated symptoms: + other (Denies: pain) The patient is an 89 year old male with a history of seizures on 1g Keppra BID, dementia, GERD, hypertension, hyperlipidemia, TIA, and hernia repair who presents to the Emergency Room with complaints of an episode of a seizure occurring 25 minutes ago. Per nurse, the patient's seizure activity lasted about 90 seconds. He reportedly had a left tongue bite but suffered no injuries. The nurse notes that the patient was evaluated in the ED this morning for altered mental status. The patient currently denies any pain. HPI limited secondary to dementia. Home Medications Home Medications Medication Instructions Recorded Confirmed Type atorvastatin [Lipitor] 40 mg PO HS 06/19/19 06/19/19 History cetirizine [Zyrtec] 5 mg PO DAILY 06/19/19 06/19/19 History docusate sodium 100 mg PO DAILY 06/19/19 06/19/19 History doxycycline hyclate 100 mg PO BID 10 Days #20 tab 06/19/19 06/19/19 Rx escitalopram oxalate [Lexapro] 5 mg PO DAILY 06/19/19 06/19/19 History ferrous sulfate 325 mg PO BID 06/19/19 06/19/19 History finasteride 5 mg PO DAILY 06/19/19 06/19/19 History levetiracetam [Keppra] 1,000 mg PO BID 06/19/19 06/19/19 History magnesium gluconate [Mag-G] 27 mg PO DAILY 06/19/19 06/19/19 History melatonin [Melatin] 6 mg PO HS 06/19/19 06/19/19 History pantoprazole [Protonix] 40 mg PO DAILY 06/19/19 06/19/19 History rivaroxaban [Xarelto] 10 mg PO DAILY 06/19/19 06/19/19 History tamsulosin [Flomax] 0.4 mg PO DAILY 06/19/19 06/19/19 History Allergies Allergy/AdvReac Type Severity Reaction Status Date / Time No Known Allergies Allergy Verified 06/19/19 17:11 Past Med/Surg History Medical History Anemia Bronchitis (Acute) Dementia GERD (gastroesophageal reflux disease) (Chronic) Hyperlipidemia (Chronic) Hypertension (Acute) Seizure (Inactive) TIA (transient ischemic attack) (Acute) URI (upper respiratory infection) (Resolved) Surgical History H/O hernia repair (Resolved) Family History Other Family history non-contributory Social History Preferred Language: [place]uneian marital status: / Current Living Situation: Personal Care Facility current occupational status: retired Feels Safe at Home: Yes Smoking Status: Unknown if ever smoked Review of Systems Other (Limited secondary to dementia) Physical Exam Vital Signs Vital Signs - 24 hr 06/19/19 16:45 Temperature 36.7 C Temperature Source Oral Pulse Rate 77 Respiratory Rate 12 Respiratory Effort / Characteristics Non-Labored Spontaneous Blood Pressure 118/80 Blood Pressure Mean 92 Blood Pressure Position Lying Pulse Oximetry 95 Oxygen Delivery Method Room Air Sepsis Recent Fever Within 48 Hours No Sepsis New/Unexplained Change in Mental Status No Sepsis Action Taken by Nursing No Action Required HENT: Exam performed. - Right Ear: External ear normal. No mastoid tenderness. - Left Ear: External ear normal. No mastoid tenderness. - Mouth/Throat: The oropharynx is clear and moist. No trismus in the jaw. No dental abscesses or uvula swelling. No oropharyngeal exudate or tonsillar absc esses. Left-sided tongue bite. EYES: Conjunctivae and EOM are normal. Pupils are equal, round, and reactive to light. Right eye exhibits no discharge. Left eye exhibits no discharge. No scleral icterus. NECK: Normal range of motion. Neck supple. No JVD present. No spinous process tenderness present. No carotid bruit present. No rigidity. No tracheal deviation and normal range of motion present. No Brudzinski's sign and no Kernig's sign noted. CV: Normal rate, regular rhythm, normal heart sounds and intact distal pulses. There is no peripheral edema. Palpable radial pulses bue. PULM/CHEST: Effort normal and breath sounds normal. No respiratory distress. No stridor. He has no wheezes. He has no rales. - Chest Wall: He exhibits no tenderness. ABD: The abdomen is soft. Bowel sounds are normal. He has no distension. No mass is present. There is no tenderness. There is no rebound, no guarding, no Butler's sign and no tenderness at McBurney's point. Rovsig negative. MUSC/SKEL: Normal range of motion. There is no peripheral edema, tenderness or deformity. LYMPH: No cervical adenopathy. NEURO: He is alert and oriented x 2. Motor and sensation grossly intact. Course Course 164: The patient was evaluated in room C9, and a complete history and physical examination were performed. The patient's records were reviewed and the patient was reportedly seen in the department earlier today. Lab work was normal aside from a blood sugar of 80. Chest x-ray showed left basilar opacity atelectasis versus pneumonia. CT of head was within normal limits. The patient is on Xeralto. 1811: Vital signs stable. Imaging within normal limits. Labs showed elevated lactic at 4.9 thought to be due to seizure not sepsis. The patient had a normal white count and is not febrile. I reviewed the patient's case with Dr. Cristobal - Neurology, [facility]. Dr. Cristobal said to give 750 Keppra IV in the ED. He recommended increasing the patient to 1500 Keppra BID. He will be admitted to [facility]. I reviewed the patient's case with Dr. Evans - Hospitalist, [facility]. Dr. Evans will evaluate the patient for further management. Consultations Consultation #1: I reviewed the patient's case with Dr. Cristobal - Neurology, [facility]. Dr. Cristobal said to give 750 Keppra IV in the ED. He recommended increasing the patient to 1500 Keppra BID. Time: 18:07 Consultation #2: I reviewed the patient's case with Dr. Evans - Hospitalist, [facility]. Dr. Evans will evaluate the patient for further management. Time: 18:15 Administered Medications Discontinued Medications Sodium Chloride (Nss 1000ml) 500 mls @ 999 mls/hr IV .Q31M ONE Stop: 06/19/19 18:27 Last Admin: 06/19/19 18:00 Dose: 999 mls/hr Documented by: [id number] Medical Decision Making Medical Records Attestation: I reviewed the patient's medical records. Home Medications Current Medication List: was personally reviewed by me Laboratory Data Attestation: I reviewed the patient's lab results. Result diagrams: 06/19/19 17:04 06/19/19 17:04 Lab Results 06/19/19 06/19/19 06/19/19 Range/Units 17:04 17:04 17:04 WBC 6.15 (4.8-10.8) K/uL RBC 4.32 L (4.7-6.1) M/uL Hgb 13.5 L (14.0-18.0) g/dL Hct 39.1 L (42-52) % MCV 90.5 (80-100) fL MCH 31.3 (25-34) pg MCHC 34.5 (32-36) g/dL RDW Std Deviation 46.1 (36.4-46.3) fL RDW Coeff of Yaneli 13.9 (11.5-14.5) % Plt Count 165 (130-400) K/uL MPV 9.8 (7.4-10.4) fL Immature Gran % (Auto) 0.2 % Neut % (Auto) 84.3 % Lymph % (Auto) 5.5 % Andrew % (Auto) 9.8 % Eos % (Auto) 0.2 % Baso % (Auto) 0.0 % Immature Gran # (Auto) 0.01 (0.00-0.02) K/uL Neut # (Auto) 5.19 (1.4-6.5) K/uL Lymph # (Auto) 0.34 L (1.2-3.4) K/uL Andrew # (Auto) 0.60 H (0.11-0.59) K/uL Eos # (Auto) 0.01 (0-0.5) K/uL Baso # (Auto) 0.00 (0-0.2) K/uL PT 12.0 (9.0-12.0) Seconds INR 1.2 H (0.9-1.1) APTT 24.2 (21.0-31.0) Seconds PTT Ratio 0.9 Sodium 133 L (136-145) mmol/L Potassium 4.1 (3.5-5.1) mmol/L Chloride 99 (98-107) mmol/L Carbon Dioxide 25 (21-32) mmol/L Anion Gap 9.0 (3-11) BUN 15 (7-18) mg/dl Creatinine 1.09 (0.6-1.4) mg/dl Est Cr Clr Drug Dosing Not Reportable Est GFR ( Amer) 69.4 Est GFR (Non-Af Amer) 59.9 BUN/Creatinine Ratio 13.9 (10-20) Glucose 117 H (70-99) mg/dl Lactate (0.4-2.0) mmol/L Calcium 8.8 (8.5-10.1) mg/dl Magnesium 1.9 (1.8-2.4) mg/dl Total Bilirubin 0.7 (0.2-1) mg/dl Direct Bilirubin 0.2 (0-0.2) mg/dl AST 31 (15-37) U/L ALT 16 (12-78) U/L Alkaline Phosphatase 106 (45-117) U/L Ammonia (11-32) umol/L Total Creatine Kinase 186 (39-308) U/L Total Protein 6.9 (6.4-8.2) gm/dl Albumin 3.6 (3.4-5.0) gm/dl Lipase 69 L (73-393) U/L Prolactin ng/ml Urine Color Urine Appearance (Clear) Urine pH (4.5-7.5) Ur Specific [place] (1.000-1.030) Urine Protein (Negative) Urine Glucose (UA) (Negative) Urine Ketones (Negative) Urine Blood (Negative) Urine Nitrite (Negative) Urine Bilirubin (Negative) Urine Urobilinogen (Negative) Ur Leukocyte Esterase (Negative) 06/19/19 06/19/19 06/19/19 Range/Units 17:04 17:04 17:04 WBC (4.8-10.8) K/uL RBC (4.7-6.1) M/uL Hgb (14.0-18.0) g/dL Hct (42-52) % MCV (80-100) fL MCH (25-34) pg MCHC (32-36) g/dL RDW Std Deviation (36.4-46.3) fL RDW Coeff of Yaneli (11.5-14.5) % Plt Count (130-400) K/uL MPV (7.4-10.4) fL Immature Gran % (Auto) % Neut % (Auto) % Lymph % (Auto) % Andrew % (Auto) % Eos % (Auto) % Baso % (Auto) % Immature Gran # (Auto) (0.00-0.02) K/uL Neut # (Auto) (1.4-6.5) K/uL Lymph # (Auto) (1.2-3.4) K/uL Andrew # (Auto) (0.11-0.59) K/uL Eos # (Auto) (0-0.5) K/uL Baso # (Auto) (0-0.2) K/uL PT (9.0-12.0) Seconds INR (0.9-1.1) APTT (21.0-31.0) Seconds PTT Ratio Sodium (136-145) mmol/L Potassium (3.5-5.1) mmol/L Chloride (98-107) mmol/L Carbon Dioxide (21-32) mmol/L Anion Gap (3-11) BUN (7-18) mg/dl Creatinine (0.6-1.4) mg/dl Est Cr Clr Drug Dosing Est GFR ( Amer) Est GFR (Non-Af Amer) BUN/Creatinine Ratio (10-20) Glucose (70-99) mg/dl Lactate 4.9 H* (0.4-2.0) mmol/L Calcium (8.5-10.1) mg/dl Magnesium (1.8-2.4) mg/dl Total Bilirubin (0.2-1) mg/dl Direct Bilirubin (0-0.2) mg/dl AST (15-37) U/L ALT (12-78) U/L Alkaline Phosphatase (45-117) U/L Ammonia 28.0 (11-32) umol/L Total Creatine Kinase (39-308) U/L Total Protein (6.4-8.2) gm/dl Albumin (3.4-5.0) gm/dl Lipase (73-393) U/L Prolactin 24.13 ng/ml Urine Color Urine Appearance (Clear) Urine pH (4.5-7.5) Ur Specific [place] (1.000-1.030) Urine Protein (Negative) Urine Glucose (UA) (Negative) Urine Ketones (Negative) Urine Blood (Negative) Urine Nitrite (Negative) Urine Bilirubin (Negative) Urine Urobilinogen (Negative) Ur Leukocyte Esterase (Negative) 06/19/19 Range/Units 17:15 WBC (4.8-10.8) K/uL RBC (4.7-6.1) M/uL Hgb (14.0-18.0) g/dL Hct (42-52) % MCV (80-100) fL MCH (25-34) pg MCHC (32-36) g/dL RDW Std Deviation (36.4-46.3) fL RDW Coeff of Yaneli (11.5-14.5) % Plt Count (130-400) K/uL MPV (7.4-10.4) fL Immature Gran % (Auto) % Neut % (Auto) % Lymph % (Auto) % Andrew % (Auto) % Eos % (Auto) % Baso % (Auto) % Immature Gran # (Auto) (0.00-0.02) K/uL Neut # (Auto) (1.4-6.5) K/uL Lymph # (Auto) (1.2-3.4) K/uL Andrew # (Auto) (0.11-0.59) K/uL Eos # (Auto) (0-0.5) K/uL Baso # (Auto) (0-0.2) K/uL PT (9.0-12.0) Seconds INR (0.9-1.1) APTT (21.0-31.0) Seconds PTT Ratio Sodium (136-145) mmol/L Potassium (3.5-5.1) mmol/L Chloride (98-107) mmol/L Carbon Dioxide (21-32) mmol/L Anion Gap (3-11) BUN (7-18) mg/dl Creatinine (0.6-1.4) mg/dl Est Cr Clr Drug Dosing Est GFR ( Amer) Est GFR (Non-Af Amer) BUN/Creatinine Ratio (10-20) Glucose (70-99) mg/dl Lactate (0.4-2.0) mmol/L Calcium (8.5-10.1) mg/dl Magnesium (1.8-2.4) mg/dl Total Bilirubin (0.2-1) mg/dl Direct Bilirubin (0-0.2) mg/dl AST (15-37) U/L ALT (12-78) U/L Alkaline Phosphatase (45-117) U/L Ammonia (11-32) umol/L Total Creatine Kinase (39-308) U/L Total Protein (6.4-8.2) gm/dl Albumin (3.4-5.0) gm/dl Lipase (73-393) U/L Prolactin ng/ml Urine Color Yellow Urine Appearance Clear (Clear) Urine pH 6.5 (4.5-7.5) Ur Specific [place] 1.016 (1.000-1.030) Urine Protein Negative (Negative) Urine Glucose (UA) Negative (Negative) Urine Ketones Negative (Negative) Urine Blood Negative (Negative) Urine Nitrite Negative (Negative) Urine Bilirubin Negative (Negative) Urine Urobilinogen Negative (Negative) Ur Leukocyte Esterase Negative (Negative) Imaging Data Radiologist's Impression: Radiology results as stated below per my review and the radiologist's interpretation: CT OF THE CHEST WITHOUT IV CONTRAST CLINICAL HISTORY: Altered mental status. Evaluate for pneumonia. COMPARISON STUDY: Chest CT March 13, 2017. Chest radiograph June 19, 2019. CT DOSE: 390.78 mGy.cm TECHNIQUE: Axial images of the chest were obtained without IV contrast. Images were reviewed in the axial, sagittal, and coronal planes. IV contrast was not administered for this examination. Automated exposure control was utilized for the study. A dose lowering technique was utilized adhering to the principles of ALARA. FINDINGS: Dilatation of the ascending aorta, measuring 4.9 cm, is unchanged since CT of March 13, 2017. Heart is moderately enlarged. There is no pericardial effusion. A left subclavian pacer is in place. No pneumothorax is noted. There is no significant pleural effusion. There is no consolidation to suggest pneumonia. Mild bilateral lower lobe and lingular opacities favor atelectasis. There are no suspicious pulmonary nodules. Old right-sided rib fr actures are noted. No acute rib or thoracic spine fracture is noted. Upper abdomen is unremarkable on this unenhanced exam. There is no thoracic lymphadenopathy. Mild diffuse bronchial wall thickening is most pronounced within the lower lobes. IMPRESSION: 1. No consolidation to suggest pneumonia. Bilateral lower lobe and lingular opacities suggestive of atelectasis. Mild bilateral lower lobe bronchial wall thickening. 2. Moderate cardiomegaly. Extensive coronary artery calcification. 3. Stable dilatation of the ascending aorta since CT of March 13, 2017, measuring 4.9 cm. ACT 112: Negative or not required by law. Electronically signed by: Michael Whatley M.D. 06/19/2019 6:[address] OF THE HEAD WITHOUT CONTRAST CLINICAL HISTORY: Seizure. Altered mental status. COMPARISON STUDY: Head CT June 19, 2019 8:46 AM. MRI of the brain October 16, 2017. CT DOSE: 1572.52 mGy.cm TECHNIQUE: Helical axial images of the head were obtained without IV contrast. Automated exposure control was utilized for the study. A dose lowering techniqu e was utilized adhering to the principles of ALARA. FINDINGS: No acute intracranial hemorrhage, midline shift or mass effect is present. Ventricular system is stable. The basilar cisterns are patent. There are no extra axial collections. White matter hypodensities are unchanged and suggest moderate small vessel disease. There are no findings to suggest acute dural sinus thrombosis or acute territorial infarct. There is no calvarial fracture. IMPRESSION: 1. No acute intracranial findings. 2. No calvarial fracture. ACT 112: Negative or not required by law. Electronically signed by: Michael Whatley M.D. 06/19/2019 5:54 PM ECG Data Attestation: I personally reviewed and interpreted this ECG as follows: Indication: + other (seizure) Rate (beats per minute): 139 Rhythm: + other (paced rhythm) ECG Findings: + PVCs and + Other (QRS is 190, QTC is 733); no PACs Blood Pressure Blood Pressure Findings: Normal blood pressure MDM Narrative 1645: The patient was evaluated in room C9, and a complete history and physical examination were performed. The patient's records were reviewed and the patient was reportedly seen in the department earlier today. Lab work was normal aside from a blood sugar of 80. Chest x-ray showed left basilar opacity atelectasis versus pneumonia. CT of head was within normal limits. The patient is on Xeralto. 1811: Vital signs stable. Imaging within normal limits. Labs showed elevated lactic at 4.9 thought to be due to seizure not sepsis. The patient had a normal white count and is not febrile. I reviewed the patient's case with Dr. Cristobal - Neurology, [facility]. Dr. Cristobal said to give 750 Keppra IV in the ED. He recommended increasing the patient to 1500 Keppra BID. He will be admitted to [facility]. I reviewed the patient's case with Dr. Evans - Hospitalist, [facility]. Dr. Evans will evaluate the patient for further management. Impression & Plan Seizure Discharge Plan Visit Data Chief Complaint: Seizure Stated Complaint: SEIZURE ED Provider: Srinivasa Mesa Discharge Problem: Seizure Patient Disposition: Admitted As Inpatient Forms Stand Alone Forms: My [facility] Prescriptions Prescriptions: No Action atorvastatin [Lipitor] 40 mg Tablet 40 mg PO HS RF: 0 cetirizine [Zyrtec] 10 mg Tablet 5 mg PO DAILY RF: 0 melatonin [Melatin] 3 mg Tablet 6 mg PO HS RF: 0 tamsulosin [Flomax] 0.4 mg Capsule 0.4 mg PO DAILY RF: 0 pantoprazole [Protonix] 40 mg Tablet,Delayed Release (Dr/Ec) 40 mg PO DAILY RF: 0 ferrous sulfate 325 mg (65 mg iron) Tablet 325 mg PO BID RF: 0 docusate sodium 100 mg Capsule 100 mg PO DAILY RF: 0 finasteride 5 mg Tablet 5 mg PO DAILY RF: 0 escitalopram oxalate [Lexapro] 5 mg Tablet 5 mg PO DAILY RF: 0 levetiracetam [Keppra] 1,000 mg Tablet 1,000 mg PO BID RF: 0 magnesium gluconate [Mag-G] 27 mg magnesium (500 mg) Tablet 27 mg PO DAILY RF: 0 Xarelto 10 mg Tablet 10 mg PO DAILY RF: 0 doxycycline hyclate 100 mg tablet 100 mg PO BID 10 Days Qty: 20 RF: 0 Referrals Referrals: Dex Marin [Primary Care Provider] - The scribe's documentation has been prepared under my direction and personally reviewed by me in its entirety. I confirm that the note above accurately reflects all work, treatment, procedures, and medical decision making performed by me.
--- NOTE | 2019-06-19 18:43 | History & Physical Report ---
Date of Service June 19, 2019 Assessment & Plan (1) Seizure: Patient to be placed in observation. Follow neurological status. The emergency room physician did already speak to neurology and they will evaluate the patient in the morning. I did ask that the patient be loaded with 750 mg of IV Keppra which was ordered, consideration to increasing Keppra dosing but wants to wait for level, ordered in ER. We will continue current outpatient Keppra dosing of 1 g twice daily for now. (2) Dementia: Patient may need supportive care if he becomes more agitated for the time being seems to be calm and in no distress. (3) Hyperlipidemia: Continue Lipitor as ordered (4) HTN (hypertension): Blood pressure stable. I do not send any blood pressure medications on his outpatient medication list. He is on Xarelto, a diagnosis for this is not readily available but will continue while we investigate this further. History of Present Illness Primary Care Provider: [facility] This is a 89-year-old male with past medical history of seizure disorder, advan paul dementia, GERD that presents today with confusion and possible seizure. Patient is very demented and can provide no history. Patient is a senior care resident at [facility]. He was apparently fine overnight but in the morning seem to be more confused. Patient had a blood sugar of 84 and was otherwise stable. Patient was sent over to the emergency room this morning and had a full work-up that included laboratory work that was unremarkable. Chest x-ray was also unremarkable outside of a questionable left basilar opacity. Patient was subsequently discharged back to the senior care in stable condition. However, later in the evening the patient had observed seizure at the senior care that was self-limited. Patient was a return to the emergency room. ER documentation as the seizure lasted approximately 90 seconds. This was followed by a period of confusion. At time my evaluation, the patient is awake and seems to be alert. He has a significant aphasia and is unable to answer questions. He does not appear to be in any distress and is calm. Patient is now being admitted for overnight monitoring of his known seizure disorder. Allergies Allergy/AdvReac Type Severity Reaction Status Date / Time No Known Allergies Allergy Verified 06/19/19 17:11 Home Medications Home Medications Medication Instructions Recorded Confirmed Type atorvastatin [Lipitor] 40 mg PO HS 06/19/19 06/19/19 History cetirizine [Zyrtec] 5 mg PO DAILY 06/19/19 06/19/19 History docusate sodium 100 mg PO DAILY 06/19/19 06/19/19 History doxycycline hyclate 100 mg PO BID 10 Days #20 tab 06/19/19 06/19/19 Rx escitalopram oxalate [Lexapro] 5 mg PO DAILY 06/19/19 06/19/19 History ferrous sulfate 325 mg PO BID 06/19/19 06/19/19 History finasteride 5 mg PO DAILY 06/19/19 06/19/19 History levetiracetam [Keppra] 1,000 mg PO BID 06/19/19 06/19/19 History magnesium gluconate [Mag-G] 27 mg PO DAILY 06/19/19 06/19/19 History melatonin [Melatin] 6 mg PO HS 06/19/19 06/19/19 History pantoprazole [Protonix] 40 mg PO DAILY 06/19/19 06/19/19 History rivaroxaban [Xarelto] 10 mg PO DAILY 06/19/19 06/19/19 History tamsulosin [Flomax] 0.4 mg PO DAILY 06/19/19 06/19/19 History Past Med/Surg History Medical History Anemia Bronchitis (Acute) Dementia GERD (gastroesophageal reflux disease) (Chronic) Hyperlipidemia (Chronic) Hypertension (Acute) Seizure (Inactive) TIA (transient ischemic attack) (Acute) URI (upper respiratory infection) (Resolved) Surgical History H/O hernia repair (Resolved) Family History Other Family history non-contributory Social History Preferred Language: Citizen Of [place] marital status: / Current Living Situation: Personal Care Facility current occupational status: retired Feels Safe at Home: Yes Smoking Status: Unknown if ever smoked Review of Systems Review of Systems: Unobtainable due to cognitive status Physical Exam Constitutional: well nourished; no acute distress Confused with limited speech ENMT: Could not get the patient to open his mouth wide enough to appreciate any tongue trauma Neck: trachea midline, no thyromegaly Respiratory: Auscultation: lungs clear to auscultation bilaterally; no crackles, no rales and no wheezes Limited secondary to poor effort Cardiovascular: RRR, no murmur, no edema Gastrointestinal (Abdomen): normal bowel sounds, soft, nontender, no hepatosplenomegaly Inspection/Auscultation: abdomen normal to inspection Percussion/Palpation: abdomen soft; abdomen nontender, no guarding and abdomen not rigid Musculoskeletal: no cyanosis or clubbing, extremities motor strength 5/5 Neurologic: awake and + confused Speech / Cognition: + expressive aphasia Results & Data Vital Signs (Past 12 Hours) Vital Signs Temp Pulse Resp BP Pulse Ox 06/19/19 16:45 36.7 C 77 12 118/80 95 PG Care Time/CCT Total # of Minutes Spent Total Time Spent with Patient: Total time spent is greater than 50% in coordination of care (as documented) at patient's floor/unit and/or counseling patient:
[2019-06-19] MEDS ORDERED: ACETAMINOPHEN 325 MG TAB PO PRN (19:44)
[2019-06-19] MEDS: ATORVASTATIN 40 MG TAB PO SCH (20:56)
[2019-06-19] MEDS: levETIRAcetam 500 MG TAB PO SCH (20:56)
[2019-06-19] MEDS: FERROUS SULFATE 325 MG TAB PO SCH (20:57)
[2019-06-19] MEDS ORDERED: MELATONIN 6 MG PO SCH (21:00)
[2019-06-20] MEDS: FERROUS SULFATE 325 MG TAB PO SCH ×2 (06:29→20:34)
[2019-06-20] MEDS: RIVAROXABAN 10 MG TABLET PO SCH (07:48)
[2019-06-20] MEDS: ESCITALOPRAM OXALATE 10 MG TAB PO SCH (07:49)
[2019-06-20] MEDS: CETIRIZINE HCL 10 MG TABLET PO SCH (07:49)
[2019-06-20] MEDS: DOCUSATE SODIUM 100 MG CAP PO SCH (07:49)
[2019-06-20] MEDS: FINASTERIDE 5 MG TAB PO SCH (07:50)
[2019-06-20] MEDS: levETIRAcetam 500 MG TAB PO SCH (07:50)
[2019-06-20] MEDS: PANTOprazole 40 MG TAB PO SCH (07:50)
[2019-06-20] MEDS: TAMSULOSIN HCL 0.4 MG CAP PO SCH (07:50)
--- NOTE | 2019-06-20 08:45 | Neurology Consultation ---
Date of Consultation June 20, 2019 Assessment & Plan (1) Seizure: This is an 89-year-old male with a history of advanced dementia with associated cerebral atrophy and cerebral vascular disease with comorbid seizure disorder since 2017. [facility] after a w itnessed generalized seizure with associated left-sided tongue bite and postictal confusion. He has been taking Keppra 1000 milligrams twice daily as an outpatient and was given an extra 750 milligram IV dose in the emergency department, prior to his admission to the medical floor. An up-to-date Keppra level is pending but will probably take about 1 week for results. I suspect he is back at his neurological functional baseline this morning. At this point, I would recommend increasing his dosage of Keppra to 1250 milligrams by mouth twice daily. I do not think an EEG or additional neuro imaging would alter his management at this point in time. I have no further immediate neurological recommendations for his care. He may follow up with either Dr. Cochran, myself, or our advanced consulting practice director as we have all seen him previously. History of Present Illness Reason for Consultation: Seizure Requesting Physician: Seven Evans DO Attending Physician: Aylin Moreno DO History of Present Illness The patient is an 89-year-old male alf resident with a history of dementia, cerebrovascular disease, TIA, atrial fibrillation, cardiac pacer and seizures. He presented to the [facility] emergency department yesterday morning for altered mental status/speech changes, resolved at the time of assessment, unremarkable CT of the head, possibly related to early pneumonia, treated with doxycycline, and discharged. He was brought back to the emergency department last night after a witnessed generalized tonic-clonic seizure lasting about 90 seconds followed by a period of postictal confusion, left-sided tongue bite, no incontinence. He was noted to be alert but had some difficulty with speech/aphasia at the time he was evaluated for admission to the hospital. A repeat CT of the head obtained last night was also negative for acute process. I discussed this patient's case with the emergency department attending last night and had recommended giving him an additional 750 mg of Keppra IV. He has been taking 1000 mg twice daily as an outpatient. His last Keppra level was obtained in April 2018 and was 30.6. This patient has been seen by both Dr. Cochran and myself during previous admissions to [facility] for seizures. The reason for this patient's tendency for seizures has been felt to be multifactorial and related to multiple chronic medical comorbidities. However, he does have what appears to be a significant or advanced dementia with evidence of considerable cerebral atrophy and cerebrovascular disease which likely contributes to his lower seizure threshold as well. Previous testing has included several brain MRIs as well as an EEG completed in September 2017 that was negative for epileptiform abnormalities. Testing is as described below. Currently, the patient is an unreliable historian due to what appears to be an advanced dementia. He is unable to relate any specifics regarding his present or past medical history. He speaks in a very limited fashion but does answer simple questions and follow simple commands. Please see examination for further details. Allergies Allergy/AdvReac Type Severity Reaction Status Date / Time No Known Allergies Allergy Verified 06/19/19 17:11 Home Medications Home Medications Medication Instructions Recorded Confirmed Type atorvastatin [Lipitor] 40 mg PO HS 06/19/19 06/19/19 History cetirizine [Zyrtec] 5 mg PO DAILY 06/19/19 06/19/19 History docusate sodium 100 mg PO DAILY 06/19/19 06/19/19 History doxycycline hyclate 100 mg PO BID 10 Days #20 tab 06/19/19 06/19/19 Rx escitalopram oxalate [Lexapro] 5 mg PO DAILY 06/19/19 06/19/19 History ferrous sulfate 325 mg PO BID 06/19/19 06/19/19 History finasteride 5 mg PO DAILY 06/19/19 06/19/19 History levetiracetam [Keppra] 1,000 mg PO BID 06/19/19 06/19/19 History magnesium gluconate [Mag-G] 27 mg PO DAILY 06/19/19 06/19/19 History melatonin [Melatin] 6 mg PO HS 06/19/19 06/19/19 History pantoprazole [Protonix] 40 mg PO DAILY 06/19/19 06/19/19 History rivaroxaban [Xarelto] 10 mg PO DAILY 06/19/19 06/19/19 History tamsulosin [Flomax] 0.4 mg PO DAILY 06/19/19 06/19/19 History Patient History Medical History Anemia Bronchitis (Acute) Dementia GERD (gastroesophageal reflux disease) (Chronic) Hyperlipidemia (Chronic) Hypertension (Acute) Seizure (Inactive) TIA (transient ischemic attack) (Acute) URI (upper respiratory infection) (Resolved) Surgical History H/O hernia repair (Resolved) Family History Other Family history non-contributory Social History Preferred Language: Micronesian Communication Ability: Impaired Office Clinician Required: No marital status: / Current Living Situation: Longterm current occupational status: retired Other Information That Helps Us Care for You: No Feels Safe at Home: Yes Smoking Status: Never smoker Do You Dip or Chew Tobacco: No ; Second Hand Exposure: No ; Hx Alcohol Use: No Hx Substance Use: No Review of Systems Review of Systems: Unobtainable due to cognitive status Physical Exam Physical Exam: The patient is a well-developed, well-nourished elderly male. He is alert and oriented to person only. Recent and remote memory impaired. Attention and concentration impaired. Patient speaks in a very limited spontaneous fashion. He is able to provide simple one-word answers within the context of his limited attention. He is perseverative. He is able to follow simple commands as well. He has difficulty with object naming and repetition within the context of his limited attention and concentration, however. Fund of knowledge cannot really be assessed although he has limited knowledge of his present or past medical history. Visual muhammad grossly full to confrontation. Visual acuity cannot be assessed in a reliable fashion. He was unable to count fingers correctly. Pupils equal round reactive to light and accommodation. Eye movements normal. There is no ptosis, nystagmus, or ophthalmoplegia. Facial sensation intact. There is no facial droop or weakness. Hearing grossly intact. Palate elevates to midline. Shoulder shrug intact. Tongue protrudes to midline. Sensation grossly intact in all 4 limbs. Deep tendon reflexes intact and symmetrical for the arms and legs. Plantar responses equivocal bilaterally. Patient does not cooperate adequately for testing of dysmetria of [id number] or heel to wilcox or for testing of rapid alternating movements/dysdiadochokinesia. Patient does not cooperate adequately for visualization of the optic discs and posterior segments with direct ophthalmoscopic examination. Carotid pulses normal bilaterally, no bruits to auscultation. Gait and station cannot be tested due to safety concerns. Patient is if his grossly intact muscle strength for the arms and legs bilaterally. No obvious yuni paresis, monoparesis, or para paresis. Full evaluation of muscle strength testing limited due to poor patient cooperation, however. Muscle tone grossly normal, no spasticity, or rigidity. No focal atrophy. No abnormal movements such as tremors or dyskinesias observed. Results & Data Vital Signs (Past 12 Hours) Vital Signs Temp Pulse Pulse Pulse Resp BP BP 06/20/19 07:31 36.7 C 61 20 139/81 06/20/19 04:34 36.5 C 62 17 147/89 H 06/19/19 23:31 61 06/19/19 23:23 36.7 C 63 20 140/79 06/19/19 22:01 68 Pulse Ox 06/20/19 07:31 96 06/20/19 04:34 96 06/19/19 23:31 06/19/19 23:23 93 06/19/19 22:01 Laboratory Results WBC 6.15, hemoglobin 13.5, hematocrit 39.1, platelet count 165, sodium 133, potassium 4.1, BUN 15, creatinine 1.09, glucose 117, calcium 8.8, magnesium 1.9, AST 31, ALT 16, ammonia 28.0, total CK 186, prolactin 24.[address] of the head completed last night is negative for hemorrhage or acute process. There is chronic cerebral vascular disease as well as age-related involutional change/atrophy. I reviewed the images as well as the radiologist's interpretation of this test. Also, there is no change compared with the previous CT of the head done earlier yesterday morning. It is notable that the degree of perisylvian atrophy is a bit more prominent over the left cerebral hemisphere per my review of the images. A brain MRI completed in September of 2017 also reveals generalized atrophy which is a bit more prominent over the left sylvian region, and chronic cerebral vascular disease. Thin sections through the hippocampi by did not suggest mesial temporal sclerosis. I reviewed the images pertaining to this previous study. An EEG completed September of 2017 revealed mild generalized slowing, no epileptiform abnormalities. An electrocardiogram completed yesterday reveals a ventricular paced rhythm with occasional supraventricular complexes and frequent PVCs.
[2019-06-20] MEDS ORDERED: MAGNESIUM GLUCONATE 27 MG PO SCH (09:00)
--- NOTE | 2019-06-20 14:08 | Hospitalist Progress Note ---
Date of Service June 20, 2019 Assessment & Plan (1) Seizure: Hx of seizures, no issues with med compliance Daughter very clear that this is a pattern that has happened multiple times in the setting of infection The last episode in 2018, pt had a neg infectious workup on admission, however he was not improving until several days later when abx were started after a repeat film showed PNA, likely aspiration Pt was put on unasyn and doxy and improved rapidly Pt again noted to have neg CXR, CT chest, UA, and WBC WNL Will start on ceftriaxone given unasyn shortage and doxy and monitor Blood cx sent on 06/20 Seen by neuro Ketorra levels pending, take a week to result Dosing increased to 1250mg BID No plans for EEG F/U in office in 2 weeks (2) Dementia: Patient may need supportive care if he becomes more agitated for the time being seems to be calm and in no distress. (3) Hyperlipidemia: Continue Lipitor as ordered (4) HTN (hypertension): Blood pressure stable. (5) Afib: Xarelto, lower dosing Will confirm reason for this with daughter Subjective Pt is somewhat interactive today per nursing. Per Dex, pt's baseline is self ambulating with a walker and verbal. No new seizure activity per nursing. No fever, c/o chest or abd pain, n/v/d, SOB, LE swelling. Unable to obtain full ROS from pt. Spoke with daughter, Soniya, via phone. She states that pt was his usual self when they saw him on 06/09. He was noted to have out of the ordinary behaviors on 06/17 per daughter. He made multiple phone calls to she and her sister, which is atypical for him as he doesn't really talk on the phone much. He was repeating stories and seemed unlike himself generally. She states that this is the same pattern he has followed in the past with infection, including ultimately having a break through seizure despite stable medication use. She states that on last admission pt was not improving over several days. He had neg infectious workup, but repeat CXR revealed a PNA, felt to be aspiration after a VSS was obtained. 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 Review of Systems Review of Systems: Pertinent positives and negatives reviewed in HPI--all others negative Physical Exam Constitutional: WD/WN, vitals as above Eyes: normal visual muhammad by confrontation and + anicteric sclerae Neck: normal visual inspection and trachea midline Respiratory: normal respiratory effort, lungs clear to auscultation Cardiovascular: Rate/Rhythm: regular rate and regular rhythm Gastrointestinal (Abdomen): Inspection/Auscultation: abdomen not distended Percussion/Palpation: abdomen soft; abdomen nontender Musculoskeletal: Head/Neck/Chest: normocephalic and head atraumatic negative for edema, peripheral pulses intact Skin: no rashes, warm and dry Neurologic: awake and + confused Speech / Cognition: + abnormal speech Psychiatric: Orientation: + not oriented x 3 Pt is lying in bed, mumbing to himself. Reaching out to ceiling. Does look at me when I speak, but answers are not clear or discernible. Has to be redirected to bring his arms down. Results & Data Vital Signs (Past 12 Hours) Vital Signs Temp Pulse Pulse Resp BP BP Pulse Ox 06/20/19 12:00 36.6 C 88 20 156/99 H 90 06/20/19 07:31 36.7 C 61 20 139/81 96 06/20/19 04:34 36.5 C 62 17 147/89 H 96 PG Care Time/CCT Total # of Minutes Spent Total Time Spent with Patient: Total time spent is greater than 50% in coordination of care (as documented) at patient's floor/unit and/or counseling patient:
[2019-06-20] MEDS: cefTRIAXone SODIUM 2,000 MG in DEXTROSE 5% 50 ML IV SCH (14:27)
[2019-06-20] MEDS: DOXYCYCLINE HYCLATE 100 MG in DEXTROSE 5% 100 ML IV SCH ×2 (14:27→21:51)
[2019-06-20] MEDS: levETIRAcetam 250 MG TAB PO SCH (20:35)
[2019-06-20] MEDS: ATORVASTATIN 40 MG TAB PO SCH (20:35)
[2019-06-21] MEDS: cefTRIAXone SODIUM 2,000 MG in DEXTROSE 5% 50 ML IV SCH (08:22)
[2019-06-21] MEDS: PANTOprazole 40 MG TAB PO SCH (08:23)
[2019-06-21] MEDS: RIVAROXABAN 10 MG TABLET PO SCH (08:23)
[2019-06-21] MEDS: CETIRIZINE HCL 10 MG TABLET PO SCH (08:23)
[2019-06-21] MEDS: DOXYCYCLINE HYCLATE 100 MG in DEXTROSE 5% 100 ML IV SCH ×2 (08:23→21:02)
[2019-06-21] MEDS: TAMSULOSIN HCL 0.4 MG CAP PO SCH (08:23)
[2019-06-21] MEDS: FINASTERIDE 5 MG TAB PO SCH (08:24)
[2019-06-21] MEDS: ESCITALOPRAM OXALATE 10 MG TAB PO SCH (08:24)
[2019-06-21] MEDS: levETIRAcetam 250 MG TAB PO SCH ×2 (08:24→21:00)
[2019-06-21] MEDS: DOCUSATE SODIUM 100 MG CAP PO SCH (08:24)
[2019-06-21] MEDS: FERROUS SULFATE 325 MG TAB PO SCH ×2 (08:24→18:18)
--- NOTE | 2019-06-21 12:44 | Hospitalist Progress Note ---
Date of Service June 21, 2019 Assessment & Plan (1) Seizure: Hx of seizures, no issues with med compliance Daughter very clear that this is a pattern that has happened multiple times in the setting of infection The last episode in 2018, pt had a neg infectious workup on admission, however he was not improving until several days later when abx were started after a repeat film showed PNA, likely aspiration Pt was put on unasyn and doxy and improved rapidly Pt again noted to have neg CXR, CT chest, UA, and WBC WNL Ceftriaxone given unasyn shortage and doxy and monitor, started 06/20--much improved following day Blood cx sent on 06/20 Seen by neuro Vika levels pending, take a week to result Dosing increased to 1250mg BID No plans for EEG F/U in office in 2 weeks (2) Dementia: Patient may need supportive care if he becomes more agitated for the time being seems to be calm and in no distress. (3) Hyperlipidemia: Continue Lipitor as ordered (4) HTN (hypertension): Blood pressure stable. (5) Afib: Xarelto, lower dosing Will confirm reason for this with daughter Subjective Pt states he has no concerns today. Pt denies fever, SOB, chest pain, abd pain, n/v/c/d, LE pain or swelling. Pt is much more interactive today per nursing. Per Dex, pt's baseline is self ambulating with a walker and verbal. No new seizure activity per nursing. No fever, c/o chest or abd pain, n/v/d, SOB, LE swelling to nursing. Review of Systems Review of Systems: Pertinent positives and negatives reviewed in HPI--all others negative Physical Exam Constitutional: WD/WN, vitals as above Eyes: normal visual muhammad by confrontation and + anicteric sclerae Neck: normal visual inspection and trachea midline Respiratory: normal respiratory effort, lungs clear to auscultation Cardiovascular: Rate/Rhythm: regular rate and regular rhythm Gastrointestinal (Abdomen): Inspection/Auscultation: abdomen not distended Percussion/Palpation: abdomen soft; abdomen nontender Musculoskeletal: Head/Neck/Chest: normocephalic and head atraumatic neg LE edema Skin: no rashes, warm and dry Neurologic: awake and + confused Speech / Cognition: + abnormal speech Psychiatric: Orientation: oriented x 3, oriented to person, oriented to place and cooperative; + not oriented to time Speech: normal rate/rhythm/volume of speech Affect: euthymic affect Results & Data Vital Signs (Past 12 Hours) Vital Signs Temp Pulse Pulse Resp BP Pulse Ox 06/21/19 07:11 36.9 C 95 H 20 166/93 H 95 06/21/19 03:49 65 157/82 H 06/21/19 03:23 85 22 170/110 H 94 06/21/19 00:50 36.4 C L 70 152/89 H PG Care Time/CCT Total # of Minutes Spent Total Time Spent with Patient: Total time spent is greater than 50% in coordination of care (as documented) at patient's floor/unit and/or counseling patient:
[2019-06-21] MEDS: ATORVASTATIN 40 MG TAB PO SCH (21:01)
[2019-06-22] MEDS: FERROUS SULFATE 325 MG TAB PO SCH ×2 (06:00→20:22)
[2019-06-22] MEDS: PANTOprazole 40 MG TAB PO SCH (08:43)
[2019-06-22] MEDS: ESCITALOPRAM OXALATE 10 MG TAB PO SCH (08:43)
[2019-06-22] MEDS: FINASTERIDE 5 MG TAB PO SCH (08:43)
[2019-06-22] MEDS: DOCUSATE SODIUM 100 MG CAP PO SCH (08:43)
[2019-06-22] MEDS: RIVAROXABAN 10 MG TABLET PO SCH (08:43)
[2019-06-22] MEDS: TAMSULOSIN HCL 0.4 MG CAP PO SCH (08:43)
[2019-06-22] MEDS: levETIRAcetam 250 MG TAB PO SCH ×2 (08:44→20:22)
[2019-06-22] MEDS: CETIRIZINE HCL 10 MG TABLET PO SCH (08:44)
[2019-06-22] MEDS: cefTRIAXone SODIUM 2,000 MG in DEXTROSE 5% 50 ML IV SCH (09:02)
[2019-06-22] MEDS: DOXYCYCLINE HYCLATE 100 MG in DEXTROSE 5% 100 ML IV SCH ×2 (09:39→20:21)
--- NOTE | 2019-06-22 16:57 | Hospitalist Progress Note ---
Date of Service June 22, 2019 Assessment & Plan (1) Seizure: Hx of seizures, no issues with med compliance Daughter very clear that this is a pattern that has happened multiple times in the setting of infection The last episode in 2018, pt had a neg infectious workup on admission, however he was not improving until several days later when abx were started after a repeat film showed PNA, likely aspiration Pt was put on unasyn and doxy and improved rapidly Pt again noted to have neg CXR, CT chest, UA, and WBC WNL treated with Ceftriaxone and doxycycline, much improved the past two days, not quite back to baseline but close Blood cx sent on 06/20 - no growth Seen by neuro Keppra levels pending, take a week to result Dosing increased to 1250mg BID No plans for EEG F/U in office in 2 weeks (2) Dementia: calm and cooperative plan to return to [facility] when medically stable (3) Hyperlipidemia: Continue Lipitor as ordered (4) HTN (hypertension): Blood pressure stable. (5) Afib: Xarelto, lower dosing this is due to history of falls Subjective patient is awake, conversive, fixated on talking about his daughter and how his children manage his wealth he is eating well breathing is stable, minimal cough, no fever no seizure activity daughter would like him to start with therapy, I assured her the order was placed discussed the recommendations from neurology no labs today discussed plan to go to [facility] likely on Monday Review of Systems Review of Systems: All systems reviewed & are unremarkable except as noted in HPI & below Physical Exam Constitutional: WD/WN, vitals as above Eyes: PERRL, conjunctivae normal, anicteric sclerae ENMT: external ear and nose normal, oropharynx normal Neck: trachea midline, no thyromegaly Respiratory: normal respiratory effort, lungs clear to auscultation Cardiovascular: RRR, no murmur, no edema Gastrointestinal (Abdomen): normal bowel sounds, soft, nontender, no hepatosplenomegaly Musculoskeletal: no cyanosis or clubbing, extremities motor strength 5/5 Skin: no rashes, warm and dry Neurologic: patellar DTR's 2+ bilat, sensation intact and PERRL, EOMI, accommodation nl, no face palsy, no dysarthria Psychiatric: Orientation: alert, oriented to person and cooperative; + not oriented to place and + not oriented to time Lymphatic: no cervical or axillary lymphadenopathy Results & Data Vital Signs (Past 12 Hours) Vital Signs Temp Pulse Pulse Resp BP Pulse Ox 06/22/19 15:30 36.5 C 85 16 118/78 97 06/22/19 11:18 37.1 C 59 L 16 100/58 L 95 06/22/19 07:31 82 Medications Administered Current Inpatient Medications Acetaminophen (Tylenol) 650 mg PO Q4H PRN PRN Reason: Pain or Fever Stop: 07/19/19 19:43 Atorvastatin Calcium (Lipitor) 40 mg PO HS [facility] Stop: 07/19/19 20:59 Last Admin: 06/22/19 20:22 Dose: 40 mg Documented by: Cetirizine HCl (Zyrtec) 5 mg PO DAILY [facility] Stop: 07/20/19 08:59 Last Admin: 06/22/19 08:44 Dose: 5 mg Documented by: Docusate Sodium (Colace) 100 mg PO DAILY [facility] Stop: 07/20/19 08:59 Last Admin: 06/22/19 08:43 Dose: 100 mg Documented by: Escitalopram Oxalate (Lexapro Tab) 5 mg PO DAILY [facility] Stop: 07/20/19 08:59 Last Admin: 06/22/19 08:43 Dose: 5 mg Documented by: Ferrous Sulfate (Feosol) 325 mg PO BID@0700,1900 [facility] Stop: 07/19/19 20:59 Last Admin: 06/22/19 20:22 Dose: 325 mg Documented by: Finasteride (Proscar) 5 mg PO DAILY [facility] Stop: 07/20/19 08:59 Last Admin: 06/22/19 08:43 Dose: 5 mg Documented by: Doxycycline Hyclate 100 mg/ (Dextrose) 110 mls @ 50 mls/hr IV BID [facility] Stop: 06/27/19 14:14 Last Infusion: 06/22/19 21:00 Dose: 50 mls/hr Documented by: Ceftriaxone Sodium 2,000 mg/ (Dextrose) 70 mls @ 100 mls/hr IV DAILY [facility]; Protocol Stop: 06/27/19 14:14 Last Infusion: 06/22/19 09:39 Dose: Infused Documented by: Levetiracetam (Keppra) 1,250 mg PO BID [facility] Stop: 07/20/19 20:59 Last Admin: 06/22/19 20:22 Dose: 1,250 mg Documented by: Pantoprazole Sodium (Protonix) 40 mg PO DAILY [facility] Stop: 07/20/19 08:59 Last Admin: 06/22/19 08:43 Dose: 40 mg Documented by: Rivaroxaban (Xarelto) 10 mg PO DAILY [facility] Stop: 07/20/19 08:59 Last Admin: 06/22/19 08:43 Dose: 10 mg Documented by: Tamsulosin HCl (Flomax) 0.4 mg PO DAILY [facility] Stop: 07/20/19 08:59 Last Admin: 06/22/19 08:43 Dose: 0.4 mg Documented by: PG Care Time/CCT Total # of Minutes Spent Total Time Spent with Patient: Total time spent is greater than 50% in coordination of care (as documented) at patient's floor/unit and/or counseling patient:
[2019-06-22] MEDS: ATORVASTATIN 40 MG TAB PO SCH (20:22)
[2019-06-23] MEDS: FERROUS SULFATE 325 MG TAB PO SCH ×2 (06:10→20:12)
[2019-06-23] MEDS: CETIRIZINE HCL 10 MG TABLET PO SCH (08:04)
[2019-06-23] MEDS: DOCUSATE SODIUM 100 MG CAP PO SCH (08:05)
[2019-06-23] MEDS: ESCITALOPRAM OXALATE 10 MG TAB PO SCH (08:06)
[2019-06-23] MEDS: RIVAROXABAN 10 MG TABLET PO SCH (08:06)
[2019-06-23] MEDS: levETIRAcetam 250 MG TAB PO SCH ×2 (08:06→20:11)
[2019-06-23] MEDS: TAMSULOSIN HCL 0.4 MG CAP PO SCH (08:06)
[2019-06-23] MEDS: PANTOprazole 40 MG TAB PO SCH (08:07)
[2019-06-23] MEDS: FINASTERIDE 5 MG TAB PO SCH (08:07)
[2019-06-23] MEDS: cefTRIAXone SODIUM 2,000 MG in DEXTROSE 5% 50 ML IV SCH (09:13)
[2019-06-23 09:42] LABS: BUN Creatinine Ratio 20.7 (10-20); Calcium 9.2 mg/dl (8.5-10.1); Creatinine Clr Calc Pharmacy 45.3 ml/min; Est GFR (African American) 61.1; Est GFR (Non-African American) 52.8; Potassium 3.1 mmol/L (3.5-5.1)
[2019-06-23] MEDS: DOXYCYCLINE HYCLATE 100 MG in DEXTROSE 5% 100 ML IV SCH ×2 (09:46→20:07)
--- NOTE | 2019-06-23 10:10 | Hospitalist Progress Note ---
Date of Service June 23, 2019 Assessment & Plan (1) Seizure: Hx of seizures, no issues with med compliance Daughter very clear that this is a pattern that has happened multiple times in the setting of infection The last episode in 2018, pt had a neg infectious workup on admission, however he was not improving until several days later when abx were started after a repeat film showed PNA, likely aspiration Pt was put on unasyn and doxy and improved rapidly Pt again noted to have neg CXR, CT chest, UA, and WBC WNL treated with Ceftriaxone and doxycycline, much improved the past three days, close to baseline, daughter feels he could return to [facility] tomorrow Blood cx sent on 06/20 - no growth Seen by neuro Keppra levels pending, take a week to result Dosing increased to 1250mg BID No plans for EEG F/U in office in 2 weeks plan for d/c tomorrow (2) Dementia: calm and cooperative plan to return to [facility] when medically stable, likely tomorrow [facility] will review therapy notes, determine if he should go to personal care with home health or [facility] (short term SNF) (3) Hyperlipidemia: Continue Lipitor as ordered (4) HTN (hypertension): Blood pressure stable. (5) Afib: Xarelto, lower dosing this is due to history of falls (6) Hypokalemia: 20mEq BID ordered this morning Subjective patient feeling well, feeling stronger sitting up in chair, feeding himself, eating well daughter says he is much better, close to baseline, feels like he could go to [facility] tomorrow reviewed PT notes, he is close to baseline in terms of function, may need some assistance discussed with caser, [facility] will review everything tomorrow, will determine if they can take him at personal care with therapy or short term SNF vitals stable labs show K of 3.1, Cr of 1.2 Review of Systems Review of Systems: All systems reviewed & are unremarkable except as noted in HPI & below Constitutional: + weakness; no fever, no sweats and no fatigue Respiratory: no cough, no dyspnea and no dyspnea on exertion Cardiovascular: no chest pain Gastrointestinal: no abdominal pain, no nausea, no vomiting, no constipation and no diarrhea/loose stools Musculoskeletal: + muscle weakness (diffuse) Neurologic: + memory loss Physical Exam Constitutional: WD/WN, vitals as above Eyes: PERRL, conjunctivae normal, anicteric sclerae ENMT: external ear and nose normal, oropharynx normal Neck: trachea midline, no thyromegaly Respiratory: normal respiratory effort, lungs clear to auscultation Cardiovascular: RRR, no murmur, no edema Gastrointestinal (Abdomen): normal bowel sounds, soft, nontender, no hepatosplenomegaly Musculoskeletal: no cyanosis or clubbing, extremities motor strength 5/5 Skin: no rashes, warm and dry Neurologic: patellar DTR's 2+ bilat, sensation intact and PERRL, EOMI, accommodation nl, no face palsy, no dysarthria Psychiatric: Orientation: alert, oriented to person, oriented to place and cooperative; + not oriented to time Lymphatic: no cervical or axillary lymphadenopathy Results & Data Vital Signs (Past 12 Hours) Vital Signs Temp Pulse Pulse Pulse Resp BP Pulse Ox 06/23/19 07:19 36.6 C 70 16 116/79 93 06/23/19 07:08 67 06/23/19 03:34 36.8 C 60 18 106/69 93 06/22/19 23:04 36.5 C 67 18 119/76 95 Laboratory Results Laboratory Results - last 24 hr 06/23/19 09:14 Sodium 135 L Potassium 3.1 L Chloride 102 Carbon Dioxide 26 Anion Gap 7.0 BUN 25 H Creatinine 1.21 Est Cr Clr Drug Dosing 45.3 Est GFR ( Amer) 61.1 Est GFR (Non-Af Amer) 52.8 BUN/Creatinine Ratio 20.7 H Glucose 129 H Calcium 9.2 Medications Administered Current Inpatient Medications Acetaminophen (Tylenol) 650 mg PO Q4H PRN PRN Reason: Pain or Fever Stop: 07/19/19 19:43 Atorvastatin Calcium (Lipitor) 40 mg PO HS [facility] Stop: 07/19/19 20:59 Last Admin: 06/23/19 20:11 Dose: 40 mg Documented by: Cetirizine HCl (Zyrtec) 5 mg PO DAILY [facility] Stop: 07/20/19 08:59 Last Admin: 06/23/19 08:04 Dose: 5 mg Documented by: Docusate Sodium (Colace) 100 mg PO DAILY [facility] Stop: 07/20/19 08:59 Last Admin: 06/23/19 08:05 Dose: 100 mg Documented by: Escitalopram Oxalate (Lexapro Tab) 5 mg PO DAILY [facility] Stop: 07/20/19 08:59 Last Admin: 06/23/19 08:06 Dose: 5 mg Documented by: Ferrous Sulfate (Feosol) 325 mg PO BID@0700,1900 [facility] Stop: 07/19/19 20:59 Last Admin: 06/23/19 20:12 Dose: 325 mg Documented by: Finasteride (Proscar) 5 mg PO DAILY [facility] Stop: 07/20/19 08:59 Last Admin: 06/23/19 08:07 Dose: 5 mg Documented by: Doxycycline Hyclate 100 mg/ (Dextrose) 110 mls @ 50 mls/hr IV BID [facility] Stop: 06/27/19 14:14 Last Infusion: 06/23/19 22:24 Dose: Infused Documented by: Ceftriaxone Sodium 2,000 mg/ (Dextrose) 70 mls @ 100 mls/hr IV DAILY [facility]; Protocol Stop: 06/27/19 14:14 Last Infusion: 06/23/19 15:00 Dose: Infused Documented by: Levetiracetam (Keppra) 1,250 mg PO BID [facility] Stop: 07/20/19 20:59 Last Admin: 06/23/19 20:11 Dose: 1,250 mg Documented by: Pantoprazole Sodium (Protonix) 40 mg PO DAILY [facility] Stop: 07/20/19 08:59 Last Admin: 06/23/19 08:07 Dose: 40 mg Documented by: Potassium Chloride (Klor-Con M20) 20 meq PO BID [facility] Stop: 06/24/19 21:01 Last Admin: 06/23/19 20:13 Dose: 20 meq Documented by: Rivaroxaban (Xarelto) 10 mg PO DAILY [facility] Stop: 07/20/19 08:59 Last Admin: 06/23/19 08:06 Dose: 10 mg Documented by: Tamsulosin HCl (Flomax) 0.4 mg PO DAILY [facility] Stop: 07/20/19 08:59 Last Admin: 06/23/19 08:06 Dose: 0.4 mg Documented by: PG Care Time/CCT Total # of Minutes Spent Total Time Spent with Patient: Total time spent is greater than 50% in coordi nation of care (as documented) at patient's floor/unit and/or counseling patient:
[2019-06-23] MEDS: POTASSIUM CHLORIDE 20 MEQ TABCR PO SCH ×2 (13:02→20:13)
[2019-06-23] MEDS: ATORVASTATIN 40 MG TAB PO SCH (20:11)
[2019-06-24] MEDS: FERROUS SULFATE 325 MG TAB PO SCH ×2 (05:53→19:45)
[2019-06-24] MEDS: ESCITALOPRAM OXALATE 10 MG TAB PO SCH (08:23)
[2019-06-24] MEDS: DOCUSATE SODIUM 100 MG CAP PO SCH (08:23)
[2019-06-24] MEDS: CETIRIZINE HCL 10 MG TABLET PO SCH (08:24)
[2019-06-24] MEDS: levETIRAcetam 250 MG TAB PO SCH ×2 (08:24→20:19)
[2019-06-24] MEDS: FINASTERIDE 5 MG TAB PO SCH (08:24)
[2019-06-24] MEDS: POTASSIUM CHLORIDE 20 MEQ TABCR PO SCH ×2 (08:25→20:19)
[2019-06-24] MEDS: PANTOprazole 40 MG TAB PO SCH (08:25)
[2019-06-24] MEDS: TAMSULOSIN HCL 0.4 MG CAP PO SCH (08:25)
[2019-06-24] MEDS: RIVAROXABAN 10 MG TABLET PO SCH (08:25)
[2019-06-24] MEDS: cefTRIAXone SODIUM 2,000 MG in DEXTROSE 5% 50 ML IV SCH (08:36)
[2019-06-24 09:03] LABS: Hematocrit (blood only) 40.8 % (42-52); Hemoglobin 13.8 g/dL (14.0-18.0); Mean Corpuscular Hemoglobin 30.9 pg (25-34); Mean Corpuscular Hgb Conc 33.8 g/dL (32-36); Mean Corpuscular Volume 91.5 fL (80-100); Mean Platelet Volume 10.1 fL (7.4-10.4); Platelet Count 148 K/uL (130-400); RDW Coefficient of Variation 14.1 % (11.5-14.5); RDW Standard Deviation 47.1 fL (36.4-46.3); Red Blood Count 4.46 M/uL (4.7-6.1); White Blood Count 4.39 K/uL (4.8-10.8)
[2019-06-24] MEDS: DOXYCYCLINE HYCLATE 100 MG in DEXTROSE 5% 100 ML IV SCH ×2 (09:22→20:19)
[2019-06-24 09:30] LABS: BUN Creatinine Ratio 22.6 (10-20); Calcium 9.1 mg/dl (8.5-10.1); Creatinine Clr Calc Pharmacy 51.7 ml/min; Est GFR (African American) 71.8; Est GFR (Non-African American) 61.9; Magnesium 1.7 mg/dl (1.8-2.4); Potassium 3.5 mmol/L (3.5-5.1)
[2019-06-24] MEDS ORDERED: MAGNESIUM OXIDE 400 MG TAB PO ONE (15:26)
--- NOTE | 2019-06-24 15:40 | Hospitalist Progress Note ---
Date of Service June 24, 2019 Assessment & Plan (1) Seizure: - History of seizures; no issues with med compliance. His daughter states that he has had issues with seizures during periods of infection. - CXR 06/19 showed left basilar opacity; started antibiotics as noted below. - Increased Keppra to 1250 mg BID; Keppra level pending - may take ~1 week to obtain results. - Neuro consulted, appreciate input. F/u as outpatient. - No indication for EEG. (2) Pneumonia: - CXR 06/19 showed left basilar opacity; CT chest was negative. - Continue Ceftriaxone and Doxycycline for empiric coverage. - Blood cultures are negative. (3) Dementia: - Discharge to [facility] pending insurance auth. (4) Hyperlipidemia: - Continue statin as prescribed. (5) HTN (hypertension): - Not currently on meds, BP is stable. (6) Afib: - Not currently on rate controlling agent; paced with A. fib, 60's on monitor. - Continue Xarelto 10 mg daily (dose reduced due to falls) (7) Depression: - Continue Lexapro as prescribed. (8) BPH (benign prostatic hyperplasia): - Continue Proscar and Flomax as prescribed. (9) AAA (abdominal aortic aneurysm): - CT chest showed dilatation of AA, measuring 4.9 cm (stable since 2017) - Monitor as outpatient. (10) Hypokalemia: - Continue KCl 20 mEq BID. - Mag level 1.7 - ordered mag oxide 400 mg PO. Dispo: Med/surg with tele; discharge pending insurance auth. Supervising Physician Co-Signing Physician Notes BRET Supervision Note: I did not personally see or examine the patient today, but I verified all hughes points of BRET Bradshaw's assessment and plan with the following exceptions/a dditions: None Subjective Pt. is doing well, no further seizure activity noted. Plan for discharge to [facility] pending insurance auth. Review of Systems Review of Systems: All systems reviewed & are unremarkable except as noted in HPI & below Constitutional: + fatigue and + weakness; no fever, no chills and no anorexia Respiratory: no cough, no dyspnea and no dyspnea on exertion Cardiovascular: no chest pain, no palpitations and no edema Gastrointestinal: no abdominal pain, no nausea and no constipation Genitourinary: no difficulty urinating Musculoskeletal: no back pain and no joint pain Physical Exam Physical Exam: General: Resting comfortably HEENT: NC/AT; PERRLA with EOMI; [place] conjunctiva, MMM. No erythema of posterior pharynx Neck: Supple and nontender Cardiac: RRR Lungs: CTA bilaterally Abdomen: Bowel normoactive X 4; Nontender to palpation Extremities: Warm. No edema present Neuro: No focal weakness Skin: No rash Results & Data Vital Signs (Past 12 Hours) Vital Signs Temp Pulse Pulse Resp BP Pulse Ox 06/24/19 14:31 36.4 C L 61 20 100/64 97 06/24/19 11:26 36.4 C L 61 20 100/64 97 06/24/19 07:42 36.5 C 63 20 101/65 94 06/24/19 07:03 50 L 06/24/19 03:50 36.5 C 60 18 120/76 95 Laboratory Results 06/24/19 06/24/19 06/19/19 Range/Units 08:42 08:42 19:07 WBC 4.39 L (4.8-10.8) K/uL RBC 4.46 L (4.7-6.1) M/uL Hgb 13.8 L (14.0-18.0) g/dL Hct 40.8 L (42-52) % MCV 91.5 (80-100) fL MCH 30.9 (25-34) pg MCHC 33.8 (32-36) g/dL RDW Std Deviation 47.1 H (36.4-46.3) fL RDW Coeff of Yaneli 14.1 (11.5-14.5) % Plt Count 148 (130-400) K/uL MPV 10.1 (7.4-10.4) fL Sodium 138 (136-145) mmol/L Potassium 3.5 (3.5-5.1) mmol/L Chloride 105 (98-107) mmol/L Carbon Dioxide 26 (21-32) mmol/L Anion Gap 7.0 (3-11) BUN 24 H (7-18) mg/dl Creatinine 1.06 (0.6-1.4) mg/dl Est Cr Clr Drug Dosing 51.7 ml/min Est GFR ( Amer) 71.8 Est GFR (Non-Af Amer) 61.9 BUN/Creatinine Ratio 22.6 H (10-20) Glucose 120 H (70-99) mg/dl Calcium 9.1 (8.5-10.1) mg/dl Magnesium 1.7 L (1.8-2.4) mg/dl Levetiracetam 17.2 (12.0-46.0) mcg/mL PG Care Time/CCT Total # of Minutes Spent Total Time Spent with Patient: Total time spent is greater than 50% in coordination of care (as documented) at patient's floor/unit and/or counseling patient: (1) Pneumonia Laterality: left Lung location: lower lobe of lung Pneumonia type: due to unspecified organism Qualified Code(s): J18.9 - Pneumonia, unspecified organism
[2019-06-24] MEDS: ATORVASTATIN 40 MG TAB PO SCH (20:19)
[2019-06-25] MEDS: FERROUS SULFATE 325 MG TAB PO SCH (06:06)
[2019-06-25] MEDS: cefTRIAXone SODIUM 2,000 MG in DEXTROSE 5% 50 ML IV SCH (07:54)
[2019-06-25] MEDS: levETIRAcetam 250 MG TAB PO SCH (07:56)
[2019-06-25] MEDS: CETIRIZINE HCL 10 MG TABLET PO SCH (07:57)
[2019-06-25] MEDS: PANTOprazole 40 MG TAB PO SCH (07:57)
[2019-06-25] MEDS: DOCUSATE SODIUM 100 MG CAP PO SCH (07:57)
[2019-06-25] MEDS: ESCITALOPRAM OXALATE 10 MG TAB PO SCH (07:58)
[2019-06-25] MEDS: TAMSULOSIN HCL 0.4 MG CAP PO SCH (07:58)
[2019-06-25] MEDS: RIVAROXABAN 10 MG TABLET PO SCH (07:59)
[2019-06-25] MEDS: FINASTERIDE 5 MG TAB PO SCH (07:59)
[2019-06-25 09:27] LABS: BUN Creatinine Ratio 24.4 (10-20); Calcium 9.1 mg/dl (8.5-10.1); Creatinine Clr Calc Pharmacy 59.1 ml/min; Est GFR (African American) 84.1; Est GFR (Non-African American) 72.5; Magnesium 1.7 mg/dl (1.8-2.4)
[2019-06-25] MEDS: DOXYCYCLINE HYCLATE 100 MG in DEXTROSE 5% 100 ML IV SCH (09:38)
[2019-06-25] MEDS: MAGNESIUM SULFATE / D5W 1 GM/100 ML BAG IV SCH ×2 (11:28→12:28)
--- NOTE | 2019-06-25 16:47 | Discharge Summary ---
Date of Service June 25, 2019 Admission HPI Per Admitting Provider This is a 89-year-old male with past medical history of seizure disorder, advanced dementia, GERD that presents today with confusion and possible seizure. Patient is very demented and can provide no history. Patient is a fci resident at [facility]. He was apparently fine overnight but in the morning seem to be more confused. Patient had a blood sugar of 84 and was otherwise stable. Patient was sent over to the emergency room this morning and had a full work-up that included laboratory work that was unremarkable. Chest x-ray was also unremarkable outside of a questionable left basilar opacity. Patient was subsequently discharged back to the fci in stable condition. However, later in the evening the patient had observed seizure at the fci that was self-limited. Patient was a return to the emergency room. ER documentation as the seizure lasted approximately 90 seconds. This was followed by a period of confusion. At time my evaluation, the patient is awake and seems to be alert. He has a significant aphasia and is unable to answer questions. He does not appear to be in any distress and is calm. Patient is now being admitted for overnight monitoring of his known seizure disorder. Admission Exam Per Admitting Provider Constitutional: well nourished; no acute distress Confused with limited speech ENMT: Could not get the patient to open his mouth wide enough to appreciate any tongue trauma Neck: trachea midline, no thyromegaly Respiratory: Auscultation: lungs clear to auscultation bilaterally; no crackles, no rales and no wheezes Limited secondary to poor effort Cardiovascular: RRR, no murmur, no edema Gastrointestinal (Abdomen): normal bowel sounds, soft, nontender, no hepatosplenomegaly Inspection/Auscultation: abdomen normal to inspection Percussion/Palpation: abdomen soft; abdomen nontender, no guarding and abdomen not rigid Musculoskeletal: no cyanosis or clubbing, extremities motor strength 5/5 Neurologic: awake and + confused Speech / Cognition: + expressive aphasia Principal Diagnosis Seizures, Pneumonia Discharge Exam General: Resting comfortably HEENT: NC/AT; PERRLA with EOMI; [place] conjunctiva, MMM. No erythema of posterior pharynx Neck: Supple and nontender Cardiac: RRR Lungs: CTA bilaterally Abdomen: Bowel normoactive X 4; Nontender to palpation Extremities: Warm. No edema present Neuro: No focal weakness Skin: No rash Discharge Data Allergies Allergy/AdvReac Type Severity Reaction Status Date / Time No Known Allergies Allergy Verified 06/19/19 17:11 Consultations 06/19/19 18:12 ED Decision to Admit Stat 06/19/19 19:44 Consult Neurology Routine Ordered Studies 06/19/19 16:50 CT head/brain wo con Stat CXR 06/19/19 16:59 CT chest wo con Stat Hospital Course (1) Seizure: History of seizures; no issues with med compliance. His daughter states that he has had issues with seizures during periods of infection. CXR 06/19 showed left basilar opacity; started antibiotics as noted below. Increased Keppra to 1250 mg BID; Keppra level was 17 (obtained prior to increasing dose) Neuro consulted, appreciate input. F/u as outpatient. No indication for EEG. (2) Pneumonia: CXR 06/19 showed left basilar opacity; CT chest was negative. Ceftriaxone and Doxycycline for empiric coverage. Converted to Cefdinir/Doxy at discharge. Blood cultures are negative. (3) Dementia: Discharge to [facility] today. (4) Hyperlipidemia: Continued statin as prescribed. (5) HTN (hypertension): Not currently on meds, BP stable. (6) Afib: Not currently on rate controlling agent; paced with A. fib on monitor. Continued Xarelto 10 mg daily (dose reduced due to falls?) (7) Depression: Continued Lexapro as prescribed. (8) BPH (benign prostatic hyperplasia): Continued Proscar and Flomax as prescribed. (9) AAA (abdominal aortic aneurysm): CT chest showed dilatation of AA, measuring 4.9 cm (stable since 2017) (10) Hypokalemia: KCl 20 mEq BID. Discharged to [facility] on 06/25/19. Total Time Total Time Spent Total Time Spent (In Minutes): >30 minutes Total Time Includes: Examination of the Patient, Discharge Planning, Medication Reconciliation, Communication With Other Providers and Other Discharge Plan Discharge Items Patient Disposition: Transfer Nursing Home Fac Reason For Visit: SEIZURE Discharge Diagnosis: Seizures Condition on Discharge: Fair Goals: You have been hospitalized for an acute medical problem. During your stay at [facility], we have made an effort to correct the problem that brought you to the hospital while keeping you as comfortable as possible. Medications were used to bring your condition under control and your discharge instructions will include directions for any medications you should take after leaving the hospital. Please make sure you see your Primary Care Provider as part of your follow up plan. Activity: As commented below Activity Comment: Per PT/OT recs. Non-emergency contact: Primary Care Provider and Neurologist Call non-emergency contact if: you have any medication questions, your symptoms worsen and you have a fever Follow-up/Referrals: Dex Marin [Primary Care Provider] - Diet: Heart Healthy Addtl Attending Provider Instructions: 1. Seizures * Keppra dose has been increased to 1,250 mg twice daily. * Please schedule follow up with neurology in 3-4 weeks. 2. Pneumonia * Please take Cefdinir 300 mg twice daily and Doxycycline 100 mg BID for 1 day to complete a course of treatment for acute infection. 3. Please schedule follow up with PCP in 1-2 weeks to discuss this hospital admission. Pending Studies at Discharge: Yes Studies:: Blood cultures Stand-Alone Forms: My [facility] Skilled Items Patient informed of condition?: Yes DNR: No Discharge Level of Care: Skilled Communicable Disease: No Discharge Prognosis: Improving Lines: None Urinary Catheter: No Medications and DC Order Prescriptions: New levetiracetam [Keppra] 250 mg tablet 250 mg PO Q12H Qty: 60 RF: 0 levetiracetam [Keppra] 1,000 mg tablet 1,000 mg PO BID Qty: 60 RF: 0 cefdinir 300 mg capsule 300 mg PO BID Qty: 2 RF: 0 Continued doxycycline hyclate 100 mg tablet 100 mg PO BID 2 Days Qty: 20 RF: 0 atorvastatin [Lipitor] 40 mg Tablet 40 mg PO HS RF: 0 cetirizine [Zyrtec] 10 mg Tablet 5 mg PO DAILY RF: 0 melatonin [Melatin] 3 mg Tablet 6 mg PO HS RF: 0 tamsulosin [Flomax] 0.4 mg Capsule 0.4 mg PO DAILY RF: 0 pantoprazole [Protonix] 40 mg Tablet,Delayed Release (Dr/Ec) 40 mg PO DAILY RF: 0 ferrous sulfate 325 mg (65 mg iron) Tablet 325 mg PO BID RF: 0 docusate sodium 100 mg Capsule 100 mg PO DAILY RF: 0 finasteride 5 mg Tablet 5 mg PO DAILY RF: 0 escitalopram oxalate [Lexapro] 5 mg Tablet 5 mg PO DAILY RF: 0 magnesium gluconate [Mag-G] 27 mg magnesium (500 mg) Tablet 27 mg PO DAILY RF: 0 Xarelto 10 mg Tablet 10 mg PO DAILY RF: 0 Discontinued levetiracetam [Keppra] 1,000 mg Tablet 1,000 mg PO BID RF: 0 Discharge Orders: Discharge Order (Routine); Ordered 06/25/19 Ordered By: Aneta Dela Cruz Admission Data Admit Date/Time: 06/21/19 12:41 Attending Provider: Aneta Dela Cruz Admit Provider: Seven Evans Primary Care Provider: Dex Marin Other Providers: Seven Evans ; Ulises Cristobal Other Interventions: Discharge Summary Assessment (RN) Last Done: 06/25/19 12:41 DC Date/Time DO NOT enter until pt leaves facility: 06/25/19 15:14 Supervising Physician Co-Signing Physician Notes PA Supervision Note: I personally saw and examined the patient. I verified all hughes points and agree with BRET Bradshaw with the following exceptions and/or additions: Pt feels very well, no concerns, interactive. Asks about when he is leaving and was happy to hear he is going back to [facility] today. VSS NAD, AAOx2 Reg rhythm and rate, no mgr Mild bibasilar crackles, unlabored breathing Abd +BS soft NT ND Ext no edema Neuro-move all extremities, conversive, no dysarthria Stable for dc to SNF on increased dose of Keppra 1250mg po bid and one more day of doxy and cefdinir each bid Of note, at the time this chart was cosigned, I noted the Keppra and cefdinir were not on the dc med rec. I prescribed them and sent them through to the pharmacy for Dex. We will contact Dex and ensure he is getting the appropriate doses of Keppra and to finish out the course of cefdinir along with doxy
== END 2019-06-25 15:14 | DRG 100 ==
LOC: ED 16:38 → 2W 16:38 → SUATTDRO 18:57 → 2W 19:25 → SUATTDRO 06-21 12:41